=== PATIENT | female | born 1950 | race Hispanic/Latino ===

== ENCOUNTER 2018-07-10 05:43 | Emergency (ER) | payer OTHER ==
[2018-07-10] MEDS ORDERED: ONDANSETRON 4 MG/2 ML VIAL ONE (06:35)
[2018-07-10] MEDS ORDERED: DIAZEPAM 5 MG TABLET ONE (06:35)
[2018-07-10] MEDS ORDERED: FENTANYL CITR 100 MCG/2 ML ONE (06:35)
[2018-07-10] MEDS ORDERED: AMLODIPINE 5 MG TAB ONE (06:46)
[2018-07-10] MEDS ORDERED: NA CHLORIDE 0.9% 500 ML ONE (06:47)
[2018-07-10 06:48] LABS: Absolute Monocytes 0.6 K/uL (0.1-1.3); Absolute Neutrophil 3.1 K/uL (1.8-8.0); Basophils % 0.4 % (0-1.3); Eosinophils % 2.3 % (0-4.4); Hematocrit 40.2 % (36.0-45.0); Lymphocytes % 33.5 % (15.3-44.8); MCH 31.4 pg (27.0-35.0); MCV 91.9 fL (80-100); Monocytes % 10.6 % (3.3-12.3); RBC Red Blood Cell Count 4.37 M/uL (3.86-4.86)
[2018-07-10] MEDS ORDERED: LISINOPRIL 5 MG TAB ONE (06:58)
[2018-07-10 07:10] LABS: ALT/SGPT 29 U/L (12-78); AST/SGOT 24 U/L (15-37); Albumin 3.9 g/dL (3.4-5.0); Alkaline Phosphatase 44 U/L (45-117); BUN Blood Urea Nitrogen 14 mg/dL (7-18); Bicarbonate 28 mmol/L (21-32); Bilirubin Direct 0.1 mg/dL (0-0.2); Bilirubin Total 0.4 mg/dL (0.2-1.0); Glucose Level 91 mg/dL (74-106); Lipase 152 U/L (73-393); Magnesium 2.1 mg/dL (1.8-2.4); NT PRO-BNP 139 pg/mL (<125); Potassium 3.7 mmol/L (3.5-5.1); Protein, Total 7.9 g/dL (6.4-8.2); Sodium Level 136 mmol/L (136-145); Troponin (Emerg Dept Use Only) < 0.02 ng/mL (0.0-0.045)
--- NOTE | 2018-07-10 07:26 | RAD REPORT ---
EXAM DESCRIPTION: US - Extrem Venous W Compress Ramon - 07/10/2018 7:05 am CLINICAL HISTORY: Leg pain and swelling COMPARISON: None. TECHNIQUE: Real-time sonographic evaluation of the bilateral lower extremity common femoral, superfi cial femoral, popliteal and posterior tibial veins was performed. FINDINGS: Normal compressibility, flow augmentation, phasic flow and spontaneous flow are identified in the left and right lower extremity common femoral, superficial femoral, popliteal and posterior t ibial veins. No intraluminal filling defects seen. IMPRESSION: No DVT in either lower extremity.
--- NOTE | 2018-07-10 07:30 | ER ---
Nurse's Notes [facility] Name: Mary Ortega Age: 68 yrs Sex: Female : 1950 Arrival Date: 07/10/2018 Time: 05:43 Bed 6 Private MD: Diagnosis: Low back pain;Pain in left leg-posterior thigh;Essential (primary) hypertension Presentation: 07/10 05:51 Presenting complaint: Patient states: Pt reports pain to left upper thigh that's ea started two days ago. Pt reports history of back pain and arthritis, states " my back sometimes makes my legs hurt". Transition of care: patient was not received from another setting of care. Onset of symptoms was July 10, 2018. Risk Assessment: Do you want to hurt yourself or someone else? Patient reports no desire to harm self or others. Initial Sepsis Screen: Does the patient meet any 2 criteria? No. Patient's initial sepsis screen is negative. Does the patient have a suspected source of infection? No. Patient's initial sepsis screen is negative. Care prior to arrival: None. 05:51 Method Of Arrival: Wheelchair ea 05:51 Acuity: MYKE 3 ea Triage Assessment: 06:01 General: Appears uncomfortable, Behavior is calm, cooperative. Pain: Complains of pain ea in left hamstring Pain currently is 9 out of 10 on a pain scale. Quality of pain is described as aching, Pain began 2-3 days ago. Neuro: Level of Consciousness is awake, alert, obeys commands, Oriented to person, place, time, situation. Cardiovascular: Patient's skin is warm and dry. Respiratory: Airway is patent Respiratory effort is even, unlabored, Respiratory pattern is regular, symmetrical. Derm: Skin is pink, warm \\T\\ dry. Musculoskeletal: Reports pain in left hamstring. Historical: - Allergies: 06:00 No Known Allergies; ea - Home Meds: 06:00 Tramadol Oral [Active]; "blood pressure pill" [Active]; "cholesterol pill" [Active]; ea - PMHx: 06:00 Back pain; Hyperlipidemia; Hypertension; ea - PSHx: 06:00 breast surgery; Hysterectomy; ea - Immunization history:: Adult Immunizations up to date. - Social history:: Smoking status: Patient/guardian denies using tobacco. - Ebola Screening: : No symptoms or risks identified at this time. - Family history:: not pertinent. Screenin:03 Abuse screen: Denies threats or abuse. Nutritional screening: No deficits noted. ea Tuberculosis screening: No symptoms or risk factors identified. Fall Risk None identified. Assessment: 05:51 Reassessment: see triage assessment. ea 06:24 Reassessment: Patient and/or family updated on plan of care and expected duration. Pain ea level reassessed. Patient is alert, oriented x 3, equal unlabored respirations, skin warm/dry/pink. 07:35 Reassessment: Patient appears in no apparent distress at this time. No changes from previously documented assessment. Patient and/or family updated on plan of care and expected duration. Pain level reassessed. Patient is alert, oriented x 3, equal unlabored respirations, skin warm/dry/pink. Patient states feeling better. General: Appears in no apparent distress. comfortable. Pain: Pain currently is 6 out of 10 on a pain scale. 07:47 Reassessment: Patient appears in no apparent distress at this time. Patient and/or family updated on plan of care and expected duration. Pain level reassessed. Patient is alert, oriented x 3, equal unlabored respirations, skin warm/dry/pink. Patient states feeling better. Patient states symptoms have improved. Vital Signs: 06:00 BP 204 / 102; Pulse 98; Resp 20; Temp 97.6; Pulse Ox 97% on R/A; Weight 66.68 kg; ea Height 5 ft. 5 in. (165.10 cm); Pain 9/10; 06:24 BP 154 / 139; Pulse 91; Resp 18; Pulse Ox 96% on R/A; ea 06:43 BP 154 / 94; Pulse 86; Resp 20; Pulse Ox 96% on R/A; ea 06:46 BP 158 / 85; Pulse 89; Resp 18; Pulse Ox 95% ; ea 07:35 BP 150 / 92; Pulse 83; Resp 16; Temp 98.3; Pulse Ox 99% on R/A; Pain 6/10; ch 06:00 Body Mass Index 24.46 (66.68 kg, 165.10 cm) ED Course: 05:43 Patient arrived in ED. ds1 05:47 Pepe Anthony MD is Attending Physician. [facility] 05:51 Pro, Riya, RN is Primary Nurse. ea 05:56 Triage completed. ea 06:04 Patient has correct armband on for positive identification. Bed in low position. Call ea light in reach. 06:04 Arm band placed on right wrist. Patient placed in an exam room, on a stretcher, on ea pulse oximetry. 06:15 Inserted saline lock: 20 gauge in right antecubital area, using aseptic technique. ea Blood collected. 06:52 X-ray completed. Portable x-ray completed in exam room. Patient tolerated procedure kw well. 06:53 XRAY Chest (1 view) In Process Unspecified. EDMS 06:55 Report given to Mary BLUE. ea 07:05 Ultrasound completed. Patient tolerated well. aa4 07:05 US Extremity Venous W Compression Ramon In Process Unspecified. EDMS 07:23 Urine collected: clean catch specimen, clear, alex colored. jb1 07:29 Frank Vanegas MD is Referral Physician. kathleen 07:34 Primary Nurse role handed off by Riya Pro RN ch 07:34 Mary Ram RN is Primary Nurse. ch 07:40 No provider procedures requiring assistance completed. IV discontinued, intact, ch bleeding controlled, No redness/swelling at site. Pressure dressing applied. Administered Medications: 06:34 Drug: fentaNYL (PF) 25 mcg Route: IVP; Site: right antecubital; ea 06:45 Follow up: Response: No adverse reaction; Pain is decreased ea 06:34 Drug: Zofran 4 mg Route: IVP; Site: right antecubital; ea 06:53 Follow up: Response: No adverse reaction; Marked relief of symptoms ea 06:34 Drug: Valium 5 mg Route: PO; ea 06:54 Follow up: Response: No adverse reaction ea 06:43 Drug: NS 0.9% 500 ml Route: IV; Rate: bolus; Site: right antecubital; ea 07:10 Follow up: IV Status: Completed infusion; IV Intake: 500ml ch 06:43 Drug: Norvasc 10 mg Route: PO; ea 07:48 Follow up: Response: No adverse reaction; Marked relief of symptoms ch 06:49 CANCELLED (Duplicate Order): Lisinopril 10 mg PO once kathleen 06:53 Drug: Lisinopril 5 mg Route: PO; ea 07:32 Follow up: Response: No adverse reaction ch 07:40 Drug: TORadol 30 mg Route: IVP; Site: right antecubital; 07:48 Follow up: Response: No adverse reaction; Marked relief of symptoms Intake: 07:10 IV: 500ml; Total: 500ml. Outcome: 07:29 Discharge ordered by . kathleen 07:45 Discharged to home ambulatory, with family. 07:45 Condition: improved 07:45 Discharge instructions given to patient, family, Instructed on discharge instructions, follow up and referral plans. medication usage, Demonstrated understanding of instructions, follow-up care, medications, Prescriptions given X 5 07:49 Patient left the ED. Addendum: 07/14/2018 11:05 Addendum: Culture Results: Positive urine culture. Patient was not prescribed i w antibiotics at discharge. Report given to JIE for further evaluation and then to hr business partner consultant for follow up with patient. Phone call Attempt #1 phone disconnected. Signatures: Dispatcher [employer] EDWil Swan [email or web address] Mary Ram, Pepe Skinner RN, ch, MD MD cha Sanford, Demi ds1 Barbara Perez, Aparna Watters RN aa4 Rubi Miller Elena, RN RN ea
--- NOTE | 2018-07-10 07:30 | EDPHYS ---
Physician Documentation [facility] Name: Mary Ortega Age: 68 yrs Sex: Female : 1950 Arrival Date: 07/10/2018 Time: 05:43 Bed 6 Private MD: AMANDA Physician Pepe Anthony HPI: 07/10 06:26 This 68 yrs old Female presents to ER via Wheelchair with complaints of Leg kathleen Pain. 06:26 The patient presents with decreased range of motion, pain, that is acute. The kathleen complaints affect the left hamstring. Context: The problem was sustained at home. Onset: The symptoms/episode began/occurred yesterday. Modifying factors: The symptoms are alleviated by remaining still, the symptoms are aggravated by movement, bending knee. Associated signs and symptoms: The patient has no apparent associated signs or symptoms. Treatment prior to arrival includes: prescription medications, aleve. Severity of symptoms: At their worst the symptoms were mild, in the emergency department the symptoms are unchanged. The patient has not experienced similar symptoms in the past. Historical: - Allergies: 06:00 No Known Allergies; ea - Home Meds: 06:00 Tramadol Oral [Active]; "blood pressure pill" [Active]; "cholesterol pill" [Active]; ea - PMHx: 06:00 Back pain; Hyperlipidemia; Hypertension; ea - PSHx: 06:00 breast surgery; Hysterectomy; ea - Immunization history:: Adult Immunizations up to date. - Social history:: Smoking status: Patient/guardian denies using tobacco. - Ebola Screening: : No symptoms or risks identified at this time. - Family history:: not pertinent. ROS: 06:26 Constitutional: Negative for fever, chills, and weight loss, Eyes: Negative for injury, kathleen pain, redness, and discharge, ENT: Negative for injury, pain, and discharge, Neck: Negative for injury, pain, and swelling, Cardiovascular: Negative for chest pain, palpitations, and edema, Respiratory: Negative for shortness of breath, cough, wheezing, and pleuritic chest pain, Abdomen/GI: Negative for abdominal pain, nausea, vomiting, diarrhea, and constipation, Back: Negative for injury and pain, : Negative for injury, bleeding, discharge, and swelling, Skin: Negative for injury, rash, and discoloration, Psych: Negative for depression, anxiety, suicide ideation, homicidal ideation, and hallucinations, Allergy/Immunology: Negative for hives, rash, and allergies, Endocrine: Negative for neck swelling, polydipsia, polyuria, polyphagia, and marked weight changes, Hematologic/Lymphatic: Negative for swollen nodes, abnormal bleeding, and unusual bruising. 06:26 MS/extremity: Positive for decreased range of motion, pain, tenderness, of the left hamstring. Exam: 06:26 Constitutional: This is a well developed, well nourished patient who is awake, alert, kathleen and in no acute distress. Head/Face: Normocephalic, atraumatic. Eyes: Pupils equal round and reactive to light, extra-ocular motions intact. Lids and lashes normal. Conjunctiva and sclera are non-icteric and not injected. Cornea within normal limits. Periorbital areas with no swelling, redness, or edema. ENT: Nares patent. No nasal discharge, no septal abnormalities noted. Tympanic membranes are normal and external auditory canals are clear. Oropharynx with no redness, swelling, or masses, exudates, or evidence of obstruction, uvula midline. Mucous membranes moist. Neck: Trachea midline, no thyromegaly or masses palpated, and no cervical lymphadenopathy. Supple, full range of motion without nuchal rigidity, or vertebral point tenderness. No Meningismus. Chest/axilla: Normal chest wall appearance and motion. Nontender with no deformity. No lesions are appreciated. Cardiovascular: Regular rate and rhythm with a normal S1 and S2. No gallops, murmurs, or rubs. Normal PMI, no JVD. No pulse deficits. Respiratory: Lungs have equal breath sounds bilaterally, clear to auscultation and percussion. No rales, rhonchi or wheezes noted. No increased work of breathing, no retractions or nasal flaring. Abdomen/GI: Soft, non-tender, with normal bowel sounds. No distension or tympany. No guarding or rebound. No evidence of tenderness throughout. Back: No spinal tenderness. No costovertebral tenderness. Full range of motion. Skin: Warm, dry with normal turgor. Normal color with no rashes, no lesions, and no evidence of cellulitis. Neuro: Awake and alert, GCS 15, oriented to person, place, time, and situation. Cranial nerves II-XII grossly intact. Motor strength 5/5 in all extremities. Sensory grossly intact. Cerebellar exam normal. Normal gait. Psych: Awake, alert, with orientation to person, place and time. Behavior, mood, and affect are within normal limits. 06:26 Musculoskeletal/extremity: Extremities: grossly normal except: noted in the left hamstring: decreased ROM, pain, ROM: full active range of motion, full passive range of motion, Pulses: are normal with no appreciated deficits, noted to be 4+ in the bilateral radial, brachial, femoral, popliteal, posterior tibial and and dorsalis pedis arteries., Sensation intact. Compartment Syndrome exam of affected extremity: is normal. Weight bearing: able to fully bear weight, DVT Exam: no swelling, negative Homans' sign noted on exam, no appreciated bluish discoloration, no erythema, no increased warmth, pain, tenderness. Vital Signs: 06:00 BP 204 / 102; Pulse 98; Resp 20; Temp 97.6; Pulse Ox 97% on R/A; Weight 66.68 kg; ea Height 5 ft. 5 in. (165.10 cm); Pain 9/10; 06:24 BP 154 / 139; Pulse 91; Resp 18; Pulse Ox 96% on R/A; ea 06:43 BP 154 / 94; Pulse 86; Resp 20; Pulse Ox 96% on R/A; ea 06:46 BP 158 / 85; Pulse 89; Resp 18; Pulse Ox 95% ; ea 07:35 BP 150 / 92; Pulse 83; Resp 16; Temp 98.3; Pulse Ox 99% on R/A; Pain 6/10; ch 06:00 Body Mass Index 24.46 (66.68 kg, 165.10 cm) ea MDM: 05:47 Patient medically screened. [facility] 06:26 Data reviewed: vital signs, nurses notes, lab test result(s), EKG, radiologic studies, [facility] plain films. 07/10 06: Order name: Basic Metabolic Panel [facility] 07/10 06: Order name: CBC with Diff [facility] 07/10 06: Order name: LFT's [facility] 07/10 06: Order name: Magnesium [facility] 07/10 06: Order name: NT PRO-BNP [facility] 07/10 06: Order name: PT-INR; Complete Time: 07:08 [facility] 07/10 06: Order name: Troponin (emerg Dept Use Only); Complete Time: 07:23 [facility] 07/10 06:26 Order name: Lipase; Complete Time: 07:23 [facility] 07/10 06:26 Order name: Urine Culture [facility] 07/10 06:27 Order name: Basic Metabolic Panel; Complete Time: 07:23 [facility] 07/10 06:27 Order name: CBC with Automated Diff; Complete Time: 07:08 [facility] [place] 07/10 06:27 Order name: Liver (Hepatic) Function; Complete Time: 07:23 [facility] 07/10 06:27 Order name: Magnesium; Complete Time: 07:23 [facility] 07/10 06:27 Order name: NT PRO-BNP; Complete Time: 07:23 [facility] 07/10 06:26 Order name: XRAY Chest (1 view) [facility] 07/10 06:26 Order name: EKG; Complete Time: 06:28 [facility] 07/10 06:26 Order name: Cardiac monitoring; Complete Time: 06:29 [facility] 07/10 06:26 Order name: EKG - Nurse/Tech; Complete Time: 06:29 [facility] 07/10 06:26 Order name: IV Saline Lock; Complete Time: 06:29 [facility] 07/10 06:26 Order name: Labs collected and sent; Complete Time: 06:29 [facility] 07/10 06:36 Order name: US Extremity Venous W Compression Ramon; Complete Time: 07:28 [facility] 07/10 07:25 Order name: Urine Dipstick--Ancillary (enter results) 07/10 06:26 Order name: O2 Per Protocol; Complete Time: 06:29 [facility] 07/10 06:26 Order name: O2 Sat Monitoring; Complete Time: 06:29 [facility] 07/10 06:26 Order name: Urine Dipstick-Ancillary (obtain specimen); Complete Time: 07:24 [facility] Administered Medications: 06:34 Drug: fentaNYL (PF) 25 mcg Route: IVP; Site: right antecubital; ea 06:45 Follow up: Response: No adverse reaction; Pain is decreased ea 06:34 Drug: Zofran 4 mg Route: IVP; Site: right antecubital; ea 06:53 Follow up: Response: No adverse reaction; Marked relief of symptoms ea 06:34 Drug: Valium 5 mg Route: PO; ea 06:54 Follow up: Response: No adverse reaction ea 06:43 Drug: NS 0.9% 500 ml Route: IV; Rate: bolus; Site: right antecubital; ea 07:10 Follow up: IV Status: Completed infusion; IV Intake: 500ml 06:43 Drug: Norvasc 10 mg Route: PO; ea 07:48 Follow up: Response: No adverse reaction; Marked relief of symptoms 06:49 CANCELLED (Duplicate Order): Lisinopril 10 mg PO once kathleen 06:53 Drug: Lisinopril 5 mg Route: PO; ea 07:32 Follow up: Response: No adverse reaction 07:40 Drug: TORadol 30 mg Route: IVP; Site: right antecubital; ch 07:48 Follow up: Response: No adverse reaction; Marked relief of symptoms Disposition: 07/10/18 07:29 Discharged to Home. Impression: Low back pain, Pain in left leg - posterior thigh, Essential (primary) hypertension. - Condition is Stable. - Discharge Instructions: Back Pain, Adult, Hypertension, Musculoskeletal Pain, Hypertension, [id number], Back Pain, Adult, [id number], Sciatica, [id number]. - Prescriptions for Norvasc 5 mg Oral Tablet - take 1 tablet by ORAL route once daily; 20 tablet. Tylenol- Codeine #3 300-30 mg Oral Tablet - take 2 tablet by ORAL route every 6 hours As needed; 30 tablet. Valium 2 mg Oral Tablet - take 1 tablet by ORAL route every 8 hours As needed; 20 tablet. Lisinopril 5 mg Oral Tablet - take 1 tablet by ORAL route once daily; 20 tablet. Motrin IB 200 mg Oral Tablet - take 2 tablet by ORAL route every 6 hours As needed as needed with food; 20 tablet. - Medication Reconciliation Form, Thank You Letter, Antibiotic Education, Prescription Opioid Use form. - Follow up: Private Physician; When: 2 - 3 days; Reason: Recheck today's complaints, Continuance of care, Re-evaluation by your physician. Follow up: Frank Vanegas; When: 2 - 3 days; Reason: Recheck today's complaints, Re-evaluation by your physician. - Problem is new. - Symptoms have improved. Signatures: Dispatcher [employer] EDMary Rodriguez RN RN ch Anderson, Corey, MD MD cha Antunez, Elena, RN RN ea Corrections: (The following items were deleted from the chart) 06:49 06:45 Lisinopril 10 mg PO once ordered. kathleen [facility] 07:49 07:29 07/10/2018 07:29 Discharged to Home. Impression: Low back pain; Pain in left leg ch - posterior thigh; Essential (primary) hypertension. Condition is Stable. Discharge Instructions: Back Pain, Adult, Hypertension, Musculoskeletal Pain, Hypertension, [id number], Back Pain, Adult, Scua-lj-Loii, Sciatica, Ruft-[id number]. Prescriptions for Norvasc 5 mg Oral Tablet - take 1 tablet by ORAL route once daily; 20 tablet, Tylenol-Codeine #3 300-30 mg Oral Tablet - take 2 tablet by ORAL route every 6 hours As needed; 30 tablet, Valium 2 mg Oral Tablet - take 1 tablet by ORAL route every 8 hours As needed; 20 tablet, Lisinopril 5 mg Oral Tablet - take 1 tablet by ORAL route once daily; 20 tablet. and Forms are Medication Reconciliation Form, Thank You Letter, Antibiotic Education, Prescription Opioid Use. Follow up: Private Physician; When: 2 - 3 days; Reason: Recheck today's complaints, Continuance of care, Re-evaluation by your physician. Follow up: Frank Vanegsa; When: 2 - 3 days; Reason: Recheck today's complaints, Re-evaluation by your physician. Problem is new. Symptoms have improved. [facility]
[2018-07-10] MEDS ORDERED: KETOROLAC 30 MG/ML INJ ONE (07:44)
--- NOTE | 2018-07-10 08:50 | RAD REPORT ---
EXAM DESCRIPTION: RAD - Chest Single View - 07/10/2018 6:54 am CLINICAL HISTORY: Back pain, leg pain, shortness of breath COMPARISON: September 2016 TECHNIQUE: AP portable chest image was obtained 0640 hours . FINDINGS: Lung volumes are relatively low but similar to comparison. Interstitial markings are promi nent and increased over comparison. Heart size is increased slightly and vascular engorgement is seen . Trachea is midline. No measurable pleural effusion and no pneumothorax. No acute bony abnormality s een. No acute aortic findings suspected. IMPRESSION: Mild CHF/ volume overload pattern.
[2018-07-10 09:36] LABS: Urine Blood NEGATIVE (NEG); Urine Glucose NEGATIVE (NEG); Urine Protein NEGATIVE (NEG); Urine Specific Gravity 1.015 (1.005-1.030)
--- NOTE | 2018-07-10 12:19 | EKG ---
Test Date: 2018-07-10 Test Time: 06:19:48 Audio Recording Engineer: ROLANDO MEASUREMENT RESULTS: Intervals: Rate: 85 UT: 150 QRSD: 74 QT: 372 QTc: 442 [place]: P: 51 UT: 150 QRS: 32 T: 34 INTERPRETIVE STATEMENTS: Normal sinus rhythm Normal ECG Compared to ECG 09/16/2016 15:55:49 No significant changes Electronically Signed On 07-10-18 12:17:52 [employer] CONDITION[employer] WORKER by Christian Jefferson
== END 2018-07-10 07:49 | disposition home or self-care (01) ==
LOC: ER 05:43
DX: M54.5 Low back pain (principal); I10 Essential (primary) hypertension; E78.5 Hyperlipidemia, unspecified
CPT/HCPCS: 36415; 71045; 80048; 80076; 81003; 83690; 83735; 83880; 84484; 85025; 85610; 87077; 87086; 87088; 87186; 93005; 93970; 96361; 96374; 96375; 99284; J2405; J3010

== ENCOUNTER 2018-07-12 06:33 | Emergency (ER) | payer OTHER ==
[2018-07-12] MEDS ORDERED: METHYLPREDNISOLONE 125 MG INJ ONE (08:15)
[2018-07-12] MEDS ORDERED: GABAPENTIN 300 MG CAP ONE (08:15)
[2018-07-12] MEDS ORDERED: HYDROCODONE/APAP 10/325 TAB ONE (08:16)
[2018-07-12] MEDS ORDERED: IBUPROFEN 200 MG TAB PO ONE (08:16)
[2018-07-12] MEDS ORDERED: IBUPROFEN 400 MG TAB ONE (08:16)
[2018-07-12] MEDS ORDERED: FAMOTIDINE 20 MG/2 ML VIAL IV ONE (08:17)
--- NOTE | 2018-07-12 08:41 | RAD REPORT ---
EXAM DESCRIPTION: CT - Spine Lumbar Wo Con - 07/12/2018 8:30 am CLINICAL HISTORY: Back pain, left lower extremity radiculopathy COMPARISON: None. TECHNIQUE: Thin section axial imaging of the lumbar spine was performed. Sagittal and coronal recon struction images were generated and reviewed. All CT scans are performed using dose optimization technique as appropriate and may include automated exposure control or mA/KV adjustment according to patient size. FINDINGS: Lumbar bodies are normal in height and normal in alignment. No lytic, sclerotic or expansi le bony destructive process. There is significant L4-5 degenerative disc disease with gas in the disc space. Sclerotic and spurring changes involve the right anterior and lateral aspect of the disc. Mil d endplate spurs elsewhere in the lumbar spine. The T11-12 through the L3-4 disc levels show areas of disc bulge but no herniation identified. Spinal stenosis or foraminal stenosis are not suspected. Facet joint degenerative changes are mild. L4-5 disc level shows significant disc bulge in the central canal and extending into the right exit f oramen. Left foraminal disc bulge is present as well. Central spinal stenosis is evident at 8- 9 mm. Facet degenerative changes prominent at this level. L5-S1 level shows left paracentral disc bulge contacting the left S1 nerve root. No central spinal st enosis. No significant left foraminal stenosis. Facet degenerative changes mild. IMPRESSION: Advanced L4-5 disc disease with central canal and right foramen prominent bulging disc m aterial. Mild central spinal stenosis is present along with right foraminal stenosis. Left foraminal stenosis is present less than seen on the right. Left paracentral disc bulge at L5-S1. This contacts but does not displace the left S1 nerve root slee ve. No compression fracture or pathologic bone process. Central canal detail is inherently limited.
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
== END 2018-07-12 09:35 | disposition home or self-care (01) ==
LOC: ER 06:33
DX: M54.32 Sciatica, left side (principal); M51.36 Other intervertebral disc degeneration, lumbar region; I10 Essential (primary) hypertension; E78.5 Hyperlipidemia, unspecified
CPT/HCPCS: 72131; 96374; 96375; 99284; J2930

== ENCOUNTER 2018-07-23 07:43 | Emergency (ER) | payer OTHER ==
[2018-07-23] MEDS ORDERED: FENTANYL CITR 100 MCG/2 ML ONE (08:49)
[2018-07-23] MEDS ORDERED: KETOROLAC 30 MG/ML INJ ONE (08:50)
[2018-07-23] MEDS ORDERED: ONDANSETRON 4 MG/2 ML VIAL ONE (08:50)
[2018-07-23] MEDS ORDERED: NA CHLORIDE 0.9% 500 ML ONE (08:50)
[2018-07-23] MEDS ORDERED: DEXAMETHASONE 4 MG/ML VIAL ONE (08:50)
[2018-07-23 09:03] LABS: Absolute Lymphocytes (CBC) 2.8 K/uL (0.7-4.9); Absolute Monocytes 0.8 K/uL (0.1-1.3); Basophils % 0.3 % (0-1.3); Eosinophils % 0.9 % (0-4.4); Lymphocytes % 23.9 % (15.3-44.8); MCH 31.4 pg (27.0-35.0); MPV 9.2 fL (7.6-11.3); Monocytes % 6.6 % (3.3-12.3); RBC Red Blood Cell Count 4.62 M/uL (3.86-4.86)
[2018-07-23 09:19] LABS: Albumin 3.9 g/dL (3.4-5.0); Bilirubin Total 0.4 mg/dL (0.2-1.0); Potassium 4.2 mmol/L (3.5-5.1); Protein, Total 7.7 g/dL (6.4-8.2)
--- NOTE | 2018-07-23 10:03 | RAD REPORT ---
EXAM DESCRIPTION: MRI - Lumbar Spine Wo Con- 07/23/2018 9:46 am CLINICAL HISTORY: r/o herniation Radiculopathy COMPARISON: Lumbar Spine Wo Con dated 08/25/2016; Spine Lumbar Wo Con dated 07/12/2018 FINDINGS: Vertebral body heights are within normal limits. No aggressive marrow pattern is observed. No fracture is suspected. The conus medullaris terminates at a normal level. No thickening of the cauda equina or clumping of n erve roots seen. L1-2 level: Mild concentric posterior disc bulge with moderate central posterior annular fissure. L2-3 level: Krup-rr-vctslwha concentric posterior disc bulge with small central posterior annular fis sure. L3-4 level: Asymmetric posterior disc bulge to the left is seen with mild facet and ligamentum flavum hypertrophy. No significant canal or foraminal stenosis. The left lateral recess is mildly attenuate d. L4-5 level: Diffuse concentric posterior disc bulge with mild facet and ligamentum flavum hypertrophy . The central canal is mildly narrowed with narrowing of the right lateral recess seen. No significan t exit foraminal stenosis. L5-S1 level: Small 3 mm central disc protrusion is present with mild facet hypertrophy. No significan t canal or foraminal stenosis. IMPRESSION: Multilevel moderately severe spondylosis is present as detailed. Left lateral recess narrowing is present at L3-4. Right lateral recess narrowing is present at L4-5.
--- NOTE | 2018-07-23 10:06 | ER ---
Nurse's Notes [facility] Name: Mary Ortega Age: 68 yrs Sex: Female : 1950 Arrival Date: 07/23/2018 Time: 07:49 Bed 13 Private MD: None, None Diagnosis: Low back pain;Sciatica, left side;Spondylolysis, lumbar region Presentation: 07/23 07:55 Presenting complaint: Patient states: low back pain with radiation to left leg. Pt was sv seen here last week for it and dx with sciatica, pain and muscle relaxer medications worked. Pt unable to get into a PCP d/t recent addition of insurance. Transition of care: patient was not received from another setting of care. Onset of symptoms was July 2018. Care prior to arrival: None. 07:55 Method Of Arrival: Ambulatory sv 07:55 Acuity: MYKE 4 sv 07:55 Risk Assessment: Do you want to hurt yourself or someone else? Patient reports no hj desire to harm self or others. Initial Sepsis Screen: Does the patient meet any 2 criteria? No. Patient's initial sepsis screen is negative. Does the patient have a suspected source of infection? No. Patient's initial sepsis screen is negative. Triage Assessment: 08:06 General: Appears uncomfortable, Behavior is calm, cooperative, appropriate for age. sv Pain: Complains of pain in low back area Pain radiates to left leg Pain currently is 10 out of 10 on a pain scale. Neuro: Level of Consciousness is awake, alert, obeys commands, Oriented to person, place, time, situation, Moves all extremities. Full function Gait is steady, with her cane. Respiratory: Respiratory effort is even, unlabored, Respiratory pattern is regular, symmetrical. Historical: - Allergies: 08:06 No Known Allergies; sv - Home Meds: 08:06 "cholesterol pill" [Active]; omeprazole 20 mg Oral cpDR 1 cap once daily [Active]; sv tizanidine 2 mg Oral tab TID prn [Active]; Tramadol Oral [Active]; Robaxin 500 mg Oral tab 2 tabs 4 times per day [Active]; ibuprofen 800 mg Oral tab Q8H prn [Active]; methylprednisolone 4 mg Oral DsPk [Active]; lisinopril 5 mg Oral tab 1 tab once daily [Active]; - PMHx: 08:06 Back pain; Hyperlipidemia; Hypertension; sv - PSHx: 08:06 breast surgery; Hysterectomy; sv - Immunization history:: Adult Immunizations up to date. - Social history:: Smoking status: Patient/guardian denies using tobacco. - Ebola Screening: : No symptoms or risks identified at this time. - Family history:: not pertinent. Screenin:55 Abuse screen: Denies threats or abuse. Denies injuries from another. Nutritional hj screening: No deficits noted. Tuberculosis screening: No symptoms or risk factors identified. Fall Risk None identified. Assessment: 07:55 General: Appears in no apparent distress. uncomfortable, Behavior is calm, cooperative, hj appropriate for age. Pain: Complains of pain in back Pain radiates to left leg. Neuro: Level of Consciousness is awake, alert, obeys commands, Oriented to person, place, time, situation, Appropriate for age. Cardiovascular: Capillary refill < 3 seconds Patient's skin is warm and dry. Respiratory: Airway is patent Respiratory effort is even, unlabored, Respiratory pattern is regular, symmetrical. GI: No signs and/or symptoms were reported involving the gastrointestinal system. : No signs and/or symptoms were reported regarding the genitourinary system. : No signs and/or symptoms were reported regarding the genitourinary system. EENT: No signs and/or symptoms were reported regarding the EENT system. Derm: No signs and/or symptoms reported regarding the dermatologic system. Musculoskeletal: Reports pain in back and low back area. 08:33 Reassessment: Patient and/or family updated on plan of care and expected duration. Pain hj level reassessed. Patient is alert, oriented x 3, equal unlabored respirations, skin warm/dry/pink. awaiting orders and POC;. 09:30 Reassessment: Patient and/or family updated on plan of care and expected duration. Pain hj level reassessed. Patient is alert, oriented x 3, equal unlabored respirations, skin warm/dry/pink. Patient states feeling better. Patient states symptoms have improved. 10:25 Reassessment: Patient and/or family updated on plan of care and expected duration. Pain hj level reassessed. Patient is alert, oriented x 3, equal unlabored respirations, skin warm/dry/pink. D/C instructions given; Patient states feeling better. Patient states symptoms have improved. Vital Signs: 07:55 BP 122 / 83; Pulse 103; Resp 18; Temp 98; Pulse Ox 97% ; Weight 65.77 kg; Height 5 ft. sv 5 in. (165.10 cm); Pain 10/10; 08:33 BP 133 / 80; Pulse 91; Resp 18; Pulse Ox 96% on R/A; hj 09:30 BP 120 / 78; Pulse 90; Resp 18; Pulse Ox 100% on R/A; hj 10:24 BP 124 / 81; Pulse 89; Resp 18; Pulse Ox 100% on R/A; hj 07:55 Body Mass Index 24.13 (65.77 kg, 165.10 cm) sv ED Course: 07:49 Patient arrived in ED. mr 07:49 None, None is Private Physician. mr 07:55 Lev Story, RN is Primary Nurse. hj 07:55 Arm band placed on Patient placed in an exam room, on a stretcher, on pulse oximetry. sv 07:55 Patient has correct armband on for positive identification. Bed in low position. Call light in reach. Side rails up X 1. Adult w/ patient. 08:05 Triage completed. sv 08:09 Pepe Anthony MD is Attending Physician. [facility] 08:59 Pulse ox on. NIBP on. 5 08:59 Initial lab(s) drawn, by mo, sent to lab. Urine collected: clean catch specimen, clear. mh5 Inserted saline lock: 20 gauge antecubital area, using aseptic technique. Blood collected. 09:00 Urine Culture Sent. 5 09:00 Comprehensive Metabolic Panel Sent. 5 09:00 CBC with Diff Sent. 5 09:47 Lumbar Spine Wo Con In Process Unspecified. EDMS 09:48 Patient moved to MRI via wheelchair. lc 10:00 Patient moved back from MRI. lc 10:23 No provider procedures requiring assistance completed. IV discontinued, intact, hj bleeding controlled, No redness/swelling at site. Pressure dressing applied. Administered Medications: 08:40 Drug: NS 0.9% 500 ml Route: IV; Rate: bolus; Site: right antecubital; hj 10:00 Follow up: IV Status: Completed infusion 08:40 Drug: TORadol 30 mg Route: IVP; Site: right antecubital; hj 09:40 Follow up: Response: No adverse reaction; Pain is decreased hj 08:40 Drug: Zofran 4 mg Route: IVP; Site: right antecubital; hj 09:40 Follow up: Response: No adverse reaction; Nausea is decreased hj 08:40 Drug: Decadron - Dexamethasone 10 mg Route: IVP; Site: right antecubital; hj 09:40 Follow up: Response: No adverse reaction hj 08:40 Drug: fentaNYL (PF) 25 mcg Route: IVP; Site: right antecubital; hj 09:40 Follow up: Response: No adverse reaction; Pain is decreased hj 10:04 Drug: fentaNYL (PF) 25 mcg Route: IVP; Site: left antecubital; hj 10:20 Follow up: Response: No adverse reaction; Pain is decreased Outcome: 10:05 Discharge ordered by . kathleen 10:23 Discharged to home ambulatory, with family. 10:23 Condition: stable 10:23 Discharge instructions given to patient, family, Instructed on discharge instructions, follow up and referral plans. medication usage, Demonstrated understanding of instructions, follow-up care, medications, Prescriptions given X 4. 10:25 Patient left the ED. Signatures: Dispatcher [employer] EDMS Britney Beasley RN RN sv Anderson, Corey, MD MD cha Rivera, Mary mr Naty Reese Henry, RN RN hj Martinez, Maria 5 Corrections: (The following items were deleted from the chart) 08:09 07:55 Temp 98F; 65.77 kg; Height 5 ft. 5 in.; BMI: 24.1; Pain 10; [facility]
--- NOTE | 2018-07-23 10:06 | EDPHYS ---
Physician Documentation [facility] Name: Mary Ortega Age: 68 yrs Sex: Female : 1950 Arrival Date: 07/23/2018 Time: 07:49 Bed 13 Private MD: None, None ED Physician Pepe Anthony HPI: 07/23 08:36 This 68 yrs old Female presents to ER via Ambulatory with complaints of Back kathleen Pain. 08:36 The patient presents with pain that is acute. The symptoms are located in the low back. kathleen Onset: The symptoms/episode began/occurred 14 day(s) ago. The pain radiates to the left low back. Associated signs and symptoms: The patient has no apparent associated signs or symptoms. Modifying factors: The patient symptoms are alleviated by remaining still. Severity of symptoms: At their worst the symptoms were mild. Historical: - Allergies: 08:06 No Known Allergies; sv - Home Meds: 08:06 "cholesterol pill" [Active]; omeprazole 20 mg Oral cpDR 1 cap once daily [Active]; sv tizanidine 2 mg Oral tab TID prn [Active]; Tramadol Oral [Active]; Robaxin 500 mg Oral tab 2 tabs 4 times per day [Active]; ibuprofen 800 mg Oral tab Q8H prn [Active]; methylprednisolone 4 mg Oral DsPk [Active]; lisinopril 5 mg Oral tab 1 tab once daily [Active]; - PMHx: 08:06 Back pain; Hyperlipidemia; Hypertension; sv - PSHx: 08:06 breast surgery; Hysterectomy; sv - Immunization history:: Adult Immunizations up to date. - Social history:: Smoking status: Patient/guardian denies using tobacco. - Ebola Screening: : No symptoms or risks identified at this time. - Family history:: not pertinent. ROS: 08:36 Constitutional: Negative for fever, chills, and weight loss, Eyes: Negative for injury, kathleen pain, redness, and discharge, ENT: Negative for injury, pain, and discharge, Neck: Negative for injury, pain, and swelling, Cardiovascular: Negative for chest pain, palpitations, and edema, Respiratory: Negative for shortness of breath, cough, wheezing, and pleuritic chest pain, Abdomen/GI: Negative for abdominal pain, nausea, vomiting, diarrhea, and constipation, Back: Negative for injury and pain, : Negative for injury, bleeding, discharge, and swelling, Skin: Negative for injury, rash, and discoloration, Neuro: Negative for headache, weakness, numbness, tingling, and seizure, Psych: Negative for depression, anxiety, suicide ideation, homicidal ideation, and hallucinations, Allergy/Immunology: Negative for hives, rash, and allergies, Endocrine: Negative for neck swelling, polydipsia, polyuria, polyphagia, and marked weight changes, Hematologic/Lymphatic: Negative for swollen nodes, abnormal bleeding, and unusual bruising. 08:36 MS/extremity: Positive for decreased range of motion, pain. Exam: 08:37 Constitutional: This is a well developed, well nourished patient who is awake, alert, kathleen and in no acute distress. Head/Face: Normocephalic, atraumatic. Eyes: Pupils equal round and reactive to light, extra-ocular motions intact. Lids and lashes normal. Conjunctiva and sclera are non-icteric and not injected. Cornea within normal limits. Periorbital areas with no swelling, redness, or edema. ENT: Nares patent. No nasal discharge, no septal abnormalities noted. Tympanic membranes are normal and external auditory canals are clear. Oropharynx with no redness, swelling, or masses, exudates, or evidence of obstruction, uvula midline. Mucous membranes moist. Neck: Trachea midline, no thyromegaly or masses palpated, and no cervical lymphadenopathy. Supple, full range of motion without nuchal rigidity, or vertebral point tenderness. No Meningismus. Chest/axilla: Normal chest wall appearance and motion. Nontender with no deformity. No lesions are appreciated. Cardiovascular: Regular rate and rhythm with a normal S1 and S2. No gallops, murmurs, or rubs. Normal PMI, no JVD. No pulse deficits. Respiratory: Lungs have equal breath sounds bilaterally, clear to auscultation and percussion. No rales, rhonchi or wheezes noted. No increased work of breathing, no retractions or nasal flaring. Abdomen/GI: Soft, non-tender, with normal bowel sounds. No distension or tympany. No guarding or rebound. No evidence of tenderness throughout. Female : Normal external genitalia. Skin: Warm, dry with normal turgor. Normal color with no rashes, no lesions, and no evidence of cellulitis. MS/ Extremity: Pulses equal, no cyanosis. Neurovascular intact. Full, normal range of motion. Neuro: Awake and alert, GCS 15, oriented to person, place, time, and situation. Cranial nerves II-XII grossly intact. Motor strength 5/5 in all extremities. Sensory grossly intact. Cerebellar exam normal. Normal gait. Psych: Awake, alert, with orientation to person, place and time. Behavior, mood, and affect are within normal limits. 08:37 Back: pain, that is moderate, ROM is painful, normal spinal alignment noted, CVA tenderness, is absent, vertebral tenderness, is not appreciated, muscle spasm, is not present, Straight leg raises: right lower extremity illicits pain, at 60 degrees, left lower extremity illicits pain, at 30 degrees. Vital Signs: 07:55 BP 122 / 83; Pulse 103; Resp 18; Temp 98; Pulse Ox 97% ; Weight 65.77 kg; Height 5 ft. sv 5 in. (165.10 cm); Pain 10/10; 08:33 BP 133 / 80; Pulse 91; Resp 18; Pulse Ox 96% on R/A; hj 09:30 BP 120 / 78; Pulse 90; Resp 18; Pulse Ox 100% on R/A; hj 10:24 BP 124 / 81; Pulse 89; Resp 18; Pulse Ox 100% on R/A; hj 07:55 Body Mass Index 24.13 (65.77 kg, 165.10 cm) sv MDM: 08:10 Patient medically screened. [facility] 08:38 Data reviewed: vital signs, nurses notes, lab test result(s), radiologic studies, MRI. [facility] 07/23 08:35 Order name: CBC with Diff; Complete Time: 09:59 [facility] 07/23 08:35 Order name: Comprehensive Metabolic Panel; Complete Time: 09:59 [facility] 07/23 08:35 Order name: Urine Culture [facility] 07/23 08:42 Order name: Lumbar Spine Wo Con EDMS 07/23 09:01 Order name: Urine Dipstick--Ancillary (enter results) 07/23 08:35 Order name: Urine Dipstick-Ancillary (obtain specimen); Complete Time: 09:00 [facility] Administered Medications: 08:40 Drug: NS 0.9% 500 ml Route: IV; Rate: bolus; Site: right antecubital; hj 10:00 Follow up: IV Status: Completed infusion hj 08:40 Drug: TORadol 30 mg Route: IVP; Site: right antecubital; hj 09:40 Follow up: Response: No adverse reaction; Pain is decreased hj 08:40 Drug: Zofran 4 mg Route: IVP; Site: right antecubital; hj 09:40 Follow up: Response: No adverse reaction; Nausea is decreased hj 08:40 Drug: Decadron - Dexamethasone 10 mg Route: IVP; Site: right antecubital; hj 09:40 Follow up: Response: No adverse reaction hj 08:40 Drug: fentaNYL (PF) 25 mcg Route: IVP; Site: right antecubital; hj 09:40 Follow up: Response: No adverse reaction; Pain is decreased hj 10:04 Drug: fentaNYL (PF) 25 mcg Route: IVP; Site: left antecubital; hj 10:20 Follow up: Response: No adverse reaction; Pain is decreased hj Disposition: 07/23/18 10:05 Discharged to Home. Impression: Low back pain, Sciatica, left side, Spondylolysis, lumbar region. - Condition is Stable. - Discharge Instructions: Back Pain, Adult, Chronic Back Pain, Musculoskeletal Pain, Sciatica, Back Pain, Adult, Hnjz-[id number]-Foex, Sciatica, Wriz-no-Otwe. - Prescriptions for Skelaxin 800 mg Oral Tablet - take 1 tablet by ORAL route every 6 hours As needed; 40 tablet. Tylenol- Codeine #3 300-30 mg Oral Tablet - take 2 tablet by ORAL route every 6 hours As needed; 30 tablet. Medrol (Brennon) 4 mg Oral Tablets, Dose Pack - take 1 tablet by ORAL route as directed - follow package instructions; 1 packet. Motrin IB 200 mg Oral Tablet - take 2 tablet by ORAL route every 6 hours As needed as needed with food; 40 tablet. - Medication Reconciliation Form, Thank You Letter, Antibiotic Education, Prescription Opioid Use form. - Follow up: Private Physician; When: 2 - 3 days; Reason: Recheck today's complaints, Continuance of care, Re-evaluation by your physician. - Problem is new. - Symptoms are resolved. Signatures: Dispatcher [facility] Britney Orellana RN RN sv Anderson, Corey, MD MD cha Joaquin, Henry, RN RN hj Corrections: (The following items were deleted from the chart) 10:25 10:05 07/23/2018 10:05 Discharged to Home. Impression: Low back pain; Sciatica, left hj side; Spondylolysis, lumbar region. Condition is Stable. Discharge Instructions: Back Pain, Adult, Chronic Back Pain, Musculoskeletal Pain, Sciatica, Back Pain, Adult, Yozt-wz-Tnor, Sciatica, [id number]. Prescriptions for Skelaxin 800 mg Oral Tablet - take 1 tablet by ORAL route every 6 hours As needed; 40 tablet, Tylenol-Codeine #3 300-30 mg Oral Tablet - take 2 tablet by ORAL route every 6 hours As needed; 30 tablet, Medrol (Brennon) 4 mg Oral Tablets, Dose Pack - take 1 tablet by ORAL route as directed - follow package instructions; 1 packet, Motrin IB 200 mg Oral Tablet - take 2 tablet by ORAL route every 6 hours As needed as needed with food; 40 tablet. and Forms are Medication Reconciliation Form, Thank You Letter, Antibiotic Education, Prescription Opioid Use. Follow up: Private Physician; When: 2 - 3 days; Reason: Recheck today's complaints, Continuance of care, Re-evaluation by your physician. Problem is new. Symptoms are resolved. kathleen
[2018-07-23 10:49] LABS: Urine Blood NEGATIVE (NEG); Urine Glucose NEGATIVE (NEG); Urine Protein NEGATIVE (NEG); Urine Specific Gravity 1.015 (1.005-1.030)
== END 2018-07-23 10:25 | disposition home or self-care (01) ==
LOC: ER 07:43
DX: M54.42 Lumbago with sciatica, left side (principal); M47.816 Spondylosis without myelopathy or radiculopathy, lumbar region; E78.5 Hyperlipidemia, unspecified; I10 Essential (primary) hypertension; Z79.899 Other long term (current) drug therapy
CPT/HCPCS: 36415; 72148; 80053; 81003; 85025; 87086; 87088; 99284; J2405; J3010

== ENCOUNTER 2019-04-14 08:21 | Emergency (ER) | payer MEDICARE ==
--- OUTSIDE RECORDS SUMMARY | 2019-04-14 08:23 | XMS REPORT ---
:1950 [facility] Address [address] [place] [address] [address] [place] [address] Care Team Providers Name Role Phone Unavailable Unavailable Unavailable Problems This patient has no known problems. Allergies, Adverse Reactions, Alerts This patient has no known allergies or adverse reactions. Medications This patient has no known medications.
[2019-04-14] MEDS ORDERED: MECLIZINE HCL 12.5 MG TAB ONE (09:03)
[2019-04-14] MEDS ORDERED: KETOROLAC 30 MG/ML INJ ONE (09:03)
[2019-04-14] MEDS ORDERED: ONDANSETRON 4 MG/2 ML VIAL ONE (09:03)
[2019-04-14] MEDS ORDERED: NA CHLORIDE 0.9% 500 ML ONE (09:04)
[2019-04-14 09:07] LABS: Absolute Lymphocytes (CBC) 2.2 K/uL (0.7-4.9); Basophils % 0.3 % (0-1.3); Hematocrit 40.1 % (36.0-45.0); Lymphocytes % 35.4 % (15.3-44.8); MPV 10.1 fL (7.6-11.3); RBC Red Blood Cell Count 4.38 M/uL (3.86-4.86)
[2019-04-14 09:08] LABS: Protime INR 0.96
--- NOTE | 2019-04-14 09:24 | RAD REPORT ---
EXAM DESCRIPTION: CT - [id number] - 04/14/2019 9:05 am CLINICAL HISTORY: Dizziness, headache, neck pain, hypertension COMPARISON: None. TECHNIQUE: Axial 5 mm thick images of the head were obtained. Axial 2 mm thick images of the cervic al spine were obtained with sagittal and coronal reconstruction images generated and reviewed. All CT scans are performed using dose optimization technique as appropriate and may include automated exposure control or mA/KV adjustment according to patient size. FINDINGS: No intracranial hemorrhage, mass, edema or acute intracranial finding. No acute cortical based infarc tion identified. No cortical edema or sulcal effacement. Mild atrophy and chronic ischemic changes ar e evident. Ventricles are in proportion to the volume loss. No extra-axial fluid collections. Mastoid air cells and partially visualized paranasal sinuses are clear. No globe or orbit abnormality seen. Cervical bodies are normal in height and normal. There is a right lateral tilt of the cervical spine that is likely a positioning artifact. Degenerative changes are present at the dens C1 level and ther e is disc space narrowing at C5-6. This results in a very slight retrolisthesis of C5. Moderate sever ity right foraminal stenosis at C5-6 from uncovertebral joint hypertrophy. Patient has an enlarged tr ansverse foramen on the right at C4. No destructive change seen. Vertebral artery through this region cannot be evaluated on noncontrast imaging. No other similar finding. Facet joint degenerative yusuf es are present. No fracture or acute bony abnormality. Central canal detail is inherently limited No paraspinal mass or hematoma. IMPRESSION: Patient has a mild atrophy and chronic ischemic change pattern. No acute intracranial fi nding. Cervical spine degenerative change at C5-6 with right foraminal stenosis. No fracture or acute bone f inding. Enlarged right transverse foramen at C3. The right vertebral artery appears tortuous within this enla rged foramen but not clearly enlarged. Assessment is limited in the absence of IV contrast.
[2019-04-14 09:29] LABS: ALT/SGPT 30 U/L (12-78); AST/SGOT 16 U/L (15-37); Alkaline Phosphatase 51 U/L (45-117); BUN Blood Urea Nitrogen 17 mg/dL (7-18); Bicarbonate 28 mmol/L (21-32); Bilirubin Direct < 0.1 mg/dL (0-0.2); Bilirubin Total 0.3 mg/dL (0.2-1.0); Glucose Level 119 mg/dL (74-106); Magnesium 2.2 mg/dL (1.8-2.4); NT PRO-BNP 97 pg/mL (<125); Potassium 3.4 mmol/L (3.5-5.1); Protein, Total 7.9 g/dL (6.4-8.2); Sodium Level 142 mmol/L (136-145); Troponin (Emerg Dept Use Only) < 0.02 ng/mL (0.0-0.045)
--- NOTE | 2019-04-14 09:56 | RAD REPORT ---
EXAM DESCRIPTION: RAD - Chest Single View - 04/14/2019 9:10 am CLINICAL HISTORY: Cough, weakness, dizziness COMPARISON: July 2018 TECHNIQUE: AP portable chest image was obtained 0910 hours . FINDINGS: Lung volumes are low. Interstitial pattern matches comparison. Heart and vasculature are n ormal. No measurable pleural effusion and no pneumothorax. No acute bony abnormality seen. No acute a ortic findings suspected. IMPRESSION: No acute cardiopulmonary process. No significant interval change.
--- NOTE | 2019-04-14 09:57 | ER ---
Nurse's Notes [facility] Name: Mary Ortega Age: 69 yrs Sex: Female : 1950 Arrival Date: 04/14/2019 Time: 08:23 Bed 8 Private MD: Diagnosis: Dizziness and giddiness;Essential (primary) hypertension;Vertiginous syndromes in diseases classified elsewhere, unspecified ear;Fall due to bumping against object-out of bed, nightstand;Hypokalemia Presentation: 04/14 08:25 Presenting complaint: Patient states: "I've been feeling very dizzy for the last 2 aa5 days". Pt reports dizziness is worse with any movement. Pt reports nausea and pain to back of head. Denies vomiting. 08:25 Transition of care: patient was not received from another setting of care. Onset of aa5 symptoms was April 2019. Risk Assessment: Do you want to hurt yourself or someone else? Patient reports no desire to harm self or others. Initial Sepsis Screen: Does the patient meet any 2 criteria? No. Patient's initial sepsis screen is negative. Does the patient have a suspected source of infection? No. Patient's initial sepsis screen is negative. Care prior to arrival: None. 08:25 Acuity: MYKE 3 aa5 08:25 Method Of Arrival: Wheelchair aa5 Historical: - Allergies: 08:45 No Known Allergies; aa5 - Home Meds: 08:45 lisinopril 5 mg Oral tab 1 tab once daily [Active]; omeprazole 20 mg Oral cpDR once aa5 daily [Active]; pravastatin 40 mg oral tab once daily [Active]; hydrocodone-acetaminophen 7.5-325 mg Oral tab as needed for Pain [Active]; - PMHx: 08:45 Hyperlipidemia; Hypertension; Chronic back and neck pain; aa5 - PSHx: 08:45 breast surgery; Hysterectomy; aa5 - Immunization history:: Adult Immunizations unknown. - Social history:: Smoking status: Patient/guardian denies using tobacco. - Family history:: not pertinent. - Ebola Screening: : No symptoms or risks identified at this time. Screenin:00 Abuse screen: Denies threats or abuse. Nutritional screening: No deficits noted. aa5 Tuberculosis screening: No symptoms or risk factors identified. Fall Risk Secondary diagnosis (15 points) dizziness at this time . IV access (20 points). Total Pruitt Fall Scale indicates Low Risk Score (25-44 pts). Fall prevention measures have been instituted. Side Rails Up X 2 Placed close to Nursing Station Family Present and informed to notify staff if they need to leave bedside. Assessment: 08:30 General: Appears uncomfortable, Behavior is calm, cooperative. Pain: Complains of pain aa5 in occipital area and base of the skull Pain does not radiate. Pain currently is 6 out of 10 on a pain scale. Quality of pain is described as aching, pressure, Pain began 1 month ago Is intermittent, lasting more than 1 hour. Neuro: Level of Consciousness is awake, alert, obeys commands, Oriented to person, place, time, situation, Housekeeper Supervisor are equal bilaterally Moves all extremities. Speech is normal, Facial symmetry appears normal, Pupils are PERRLA, Reports dizziness, headache. Cardiovascular: Heart tones S1 S2 present Edema is absent. Rhythm is sinus rhythm. Respiratory: Airway is patent Respiratory effort is even, unlabored, Respiratory pattern is regular, symmetrical, Breath sounds are clear bilaterally. Denies cough, shortness of breath. GI: Abdomen is round non-distended, Bowel sounds present X 4 quads. Abd is soft and non tender X 4 quads. Reports nausea, Patient currently denies diarrhea, vomiting. : No signs and/or symptoms were reported regarding the genitourinary system. EENT: No signs and/or symptoms were reported regarding the EENT system. Derm: Skin is pink, warm \\T\\ dry. Musculoskeletal: Range of motion: intact in all extremities. 09:01 Reassessment: Pt to CT via stretcher . aa5 09:20 Reassessment: Patient is alert, oriented x 3, equal unlabored respirations, skin aa5 warm/dry/pink. Pt back from CT. US at bedside. . 10:00 Reassessment: Patient is alert, oriented x 3, equal unlabored respirations, skin aa5 warm/dry/pink. Pt reports dizziness has not improved, reports headache has decreased to 5/10 on a pain scale. MD at bedside. . 11:15 Reassessment: Patient is alert, oriented x 3, equal unlabored respirations, skin aa5 warm/dry/pink. Patient states feeling better. 11:15 GI: Patient currently denies nausea. aa5 Vital Signs: 08:27 BP 187 / 103; Pulse 96; Resp 16 S; Temp 98.3(O); Pulse Ox 98% on R/A; Weight 68.04 kg aa5 (R); Height 5 ft. 5 in. (165.10 cm) (R); Pain 6/10; 08:48 BP 148 / 73; Pulse 92; Resp 16 S; Pulse Ox 98% on R/A; aa5 09:30 BP 147 / 83; Pulse 88; Resp 16 S; Pulse Ox 98% on R/A; aa5 10:15 BP 165 / 89; Pulse 69; Resp 16 S; Pulse Ox 98% on R/A; Pain 5/10; aa5 11:15 BP 143 / 80; Pulse 70; Resp 16 S; Temp 98.0(TE); Pulse Ox 98% on R/A; Pain 5/10; aa5 08:27 Body Mass Index 24.96 (68.04 kg, 165.10 cm) aa5 ED Course: 08:23 Patient arrived in ED. as 08:24 Pepe Anthony MD is Attending Physician. kathleen 08:25 Arm band placed on Patient placed in an exam room, on a stretcher. aa5 08:25 Patient has correct armband on for positive identification. Placed in gown. Bed in low aa5 position. Call light in reach. Side rails up X2. cardiac monitor technician on. Pulse ox on. NIBP on. 08:26 Rosalind Gutierrez, RN is Primary Nurse. aa5 08:47 Triage completed. aa5 08:48 EKG done, by ED staff, reviewed by Pepe Anthony MD. jb1 09:00 Initial lab(s) drawn, by tn, sent to lab. Inserted saline lock: 20 gauge in right aa5 antecubital area, using aseptic technique. Blood collected. 09:02 CT completed. Patient tolerated procedure well. Patient moved to radiology Patient bq moved back from CT. 09:08 CT Head C Spine In Process Unspecified. EDMS 09:10 XRAY Chest (1 view) In Process Unspecified. EDMS 09:56 Peter Lion MD is Referral Physician. kathleen 10:31 Radiology exam delayed due to tech ith OUT-pt exam. sg3 10:35 US Carotid Artery Bilateral In Process Unspecified. EDMS 11:15 No provider procedures requiring assistance completed. IV discontinued, intact, aa5 bleeding controlled, No redness/swelling at site. Pressure dressing applied. Administered Medications: 09:20 Drug: NS 0.9% 500 ml Route: IV; Rate: bolus; Site: right antecubital; aa5 10:00 Follow up: IV Status: Completed infusion; IV Intake: 500ml aa5 09:20 Drug: Meclizine 50 mg Route: PO; aa5 10:13 Follow up: Response: No adverse reaction; No change in condition aa5 09:20 Drug: Zofran 4 mg Route: IVP; Site: right antecubital; aa5 09:30 Follow up: Response: No adverse reaction aa5 09:22 Drug: TORadol 30 mg Route: IVP; Site: right antecubital; aa5 09:30 Follow up: Response: No adverse reaction aa5 10:00 Drug: Potassium Effervescent Tablet 25 mEq Route: PO; aa5 11:15 Follow up: Response: No adverse reaction aa5 Intake: 10:00 IV: 500ml; Total: 500ml. aa5 Outcome: 09:56 Discharge ordered by . kathleen 11:15 Discharged to home via wheelchair, with significant other. aa5 11:15 Condition: stable 11:15 Discharge instructions given to patient, significant other, Instructed on discharge instructions, follow up and referral plans. medication usage, Demonstrated understanding of instructions, follow-up care, medications, Prescriptions given X 3. 11:16 Patient left the ED. aa5 Signatures: Dispatcher [employer] [facility] Wil Fleming jb1 Pepe Anthony MD MD cha Quilty, Betty bq Martinez, Amelia as Calderon, Audri, RN RN aa5 Annika Salas sg3 Corrections: (The following items were deleted from the chart) 11:25 11:22 Patient left the ED. aa5 aa5
--- NOTE | 2019-04-14 09:57 | EDPHYS ---
Physician Documentation [facility] Name: Mary Ortega Age: 69 yrs Sex: Female : 1950 Arrival Date: 04/14/2019 Time: 08:23 Bed 8 Private MD: AMANDA Physician Pepe Anthony HPI: 04/14 08:41 This 69 yrs old Female presents to ER via Unassigned with complaints of kathleen Dizziness, Back Pain. 08:41 The patient presents with dizziness, generalized weakness. Onset: The symptoms/episode kathleen began/occurred this morning, today. Context: occurred at home. 08:41 The patient complains of pain to the left side of the back of head, left occipital kathleen area, left base of the skull, right side of the back of head, right occipital area and right base of the skull. The patient describes the headache as constant. Onset: The symptoms/episode began/occurred this morning. Details of fall: The patient fell from a height, off furniture, approximately 3 feet. Associated injuries: The patient sustained injury to the head, neck injury. Modifying factors: The symptoms are alleviated by closing eyes, holding head still, lying down, the symptoms are aggravated by movement of head, standing up. 08:44 Associated signs and symptoms: Pertinent positives: headache, nausea. kathleen Historical: - Allergies: 08:45 No Known Allergies; aa5 - Home Meds: 08:45 lisinopril 5 mg Oral tab 1 tab once daily [Active]; omeprazole 20 mg Oral cpDR once aa5 daily [Active]; pravastatin 40 mg oral tab once daily [Active]; hydrocodone-acetaminophen 7.5-325 mg Oral tab as needed for Pain [Active]; - PMHx: 08:45 Hyperlipidemia; Hypertension; Chronic back and neck pain; aa5 - PSHx: 08:45 breast surgery; Hysterectomy; aa5 - Immunization history:: Adult Immunizations unknown. - Social history:: Smoking status: Patient/guardian denies using tobacco. - Family history:: not pertinent. - Ebola Screening: : No symptoms or risks identified at this time. ROS: 08:41 Constitutional: Negative for fever, chills, and weight loss, Eyes: Negative for injury, kathleen pain, redness, and discharge, ENT: Negative for injury, pain, and discharge, Neck: Negative for injury, pain, and swelling, Cardiovascular: Negative for chest pain, palpitations, and edema, Respiratory: Negative for shortness of breath, cough, wheezing, and pleuritic chest pain, Abdomen/GI: Negative for abdominal pain, nausea, vomiting, diarrhea, and constipation, Back: Negative for injury and pain, : Negative for injury, bleeding, discharge, and swelling, MS/Extremity: Negative for injury and deformity, Skin: Negative for injury, rash, and discoloration, Psych: Negative for depression, anxiety, suicide ideation, homicidal ideation, and hallucinations, Allergy/Immunology: Negative for hives, rash, and allergies, Endocrine: Negative for neck swelling, polydipsia, polyuria, polyphagia, and marked weight changes, Hematologic/Lymphatic: Negative for swollen nodes, abnormal bleeding, and unusual bruising. 08:41 Neuro: Positive for dizziness, headache. Exam: 08:41 Constitutional: This is a well developed, well nourished patient who is awake, alert, kathleen and in no acute distress. Eyes: Pupils equal round and reactive to light, extra-ocular motions intact. Lids and lashes normal. Conjunctiva and sclera are non-icteric and not injected. Cornea within normal limits. Periorbital areas with no swelling, redness, or edema. ENT: Nares patent. No nasal discharge, no septal abnormalities noted. Tympanic membranes are normal and external auditory canals are clear. Oropharynx with no redness, swelling, or masses, exudates, or evidence of obstruction, uvula midline. Mucous membranes moist. Chest/axilla: Normal chest wall appearance and motion. Nontender with no deformity. No lesions are appreciated. Cardiovascular: Regular rate and rhythm with a normal S1 and S2. No gallops, murmurs, or rubs. Normal PMI, no JVD. No pulse deficits. Respiratory: Lungs have equal breath sounds bilaterally, clear to auscultation and percussion. No rales, rhonchi or wheezes noted. No increased work of breathing, no retractions or nasal flaring. Abdomen/GI: Soft, non-tender, with normal bowel sounds. No distension or tympany. No guarding or rebound. No evidence of tenderness throughout. Back: No spinal tenderness. No costovertebral tenderness. Full range of motion. Skin: Warm, dry with normal turgor. Normal color with no rashes, no lesions, and no evidence of cellulitis. MS/ Extremity: Pulses equal, no cyanosis. Neurovascular intact. Full, normal range of motion. Neuro: Awake and alert, GCS 15, oriented to person, place, time, and situation. Cranial nerves II-XII grossly intact. Motor strength 5/5 in all extremities. Sensory grossly intact. Cerebellar exam normal. Normal gait. Psych: Awake, alert, with orientation to person, place and time. Behavior, mood, and affect are within normal limits. 08:41 Neck: External neck: is normal, C-spine: appears grossly normal, Thyroid: appears normal, Trachea: is midline with no obvious abnormalities, no acute changes, ROM/movement: pain, limited range of motion, Meningeal signs: are not present, Kernig's sign is negative, Brudzinski's sign is negative. Vital Signs: 08:27 BP 187 / 103; Pulse 96; Resp 16 S; Temp 98.3(O); Pulse Ox 98% on R/A; Weight 68.04 kg aa5 (R); Height 5 ft. 5 in. (165.10 cm) (R); Pain 6/10; 08:48 BP 148 / 73; Pulse 92; Resp 16 S; Pulse Ox 98% on R/A; aa5 09:30 BP 147 / 83; Pulse 88; Resp 16 S; Pulse Ox 98% on R/A; aa5 10:15 BP 165 / 89; Pulse 69; Resp 16 S; Pulse Ox 98% on R/A; Pain 5/10; aa5 11:15 BP 143 / 80; Pulse 70; Resp 16 S; Temp 98.0(TE); Pulse Ox 98% on R/A; Pain 5/10; aa5 08:27 Body Mass Index 24.96 (68.04 kg, 165.10 cm) aa MDM: 08:32 Patient medically screened. [facility] 08:45 Data reviewed: vital signs, nurses notes, lab test result(s), EKG, radiologic studies, [facility] CT scan, plain films. 04/14 08:40 Order name: Basic Metabolic Panel [facility] 04/14 08:40 Order name: CBC with Diff [facility] 04/14 08:40 Order name: LFT's [facility] 04/14 08:40 Order name: Magnesium [facility] 04/14 08:40 Order name: NT PRO-BNP [facility] 04/14 08:40 Order name: PT-INR; Complete Time: 09:32 [facility] 04/14 08:40 Order name: Troponin (emerg Dept Use Only); Complete Time: 09:32 [facility] 04/14 08:40 Order name: XRAY Chest (1 view); Complete Time: 10:48 [facility] 04/14 08:44 Order name: Basic Metabolic Panel; Complete Time: 09:32 [facility] 04/14 08:44 Order name: CBC with Automated Diff; Complete Time: 09:32 [facility] 04/14 08:44 Order name: Liver (Hepatic) Function; Complete Time: 09:32 [facility] 04/14 08:44 Order name: Magnesium; Complete Time: 09:32 [facility] 04/14 08:44 Order name: NT PRO-BNP; Complete Time: 09:32 [facility] 04/14 10:21 Order name: Urine Dipstick--Ancillary (enter results); Complete Time: 10:48 [facility] 04/14 08:40 Order name: EKG; Complete Time: 08:44 [facility] 04/14 08:40 Order name: Cardiac monitoring; Complete Time: 08:49 [facility] 04/14 08:40 Order name: EKG - Nurse/Tech; Complete Time: 08:49 [facility] 04/14 08:40 Order name: IV Saline Lock; Complete Time: 09:26 [facility] 04/14 08:40 Order name: Labs collected and sent; Complete Time: 09:26 [facility] 04/14 08:40 Order name: O2 Per Protocol; Complete Time: 08:49 [facility] 04/14 08:40 Order name: O2 Sat Monitoring; Complete Time: 08:49 [facility] 04/14 08:40 Order name: CT Head C Spine; Complete Time: 09:32 [facility] 04/14 08:40 Order name: US Carotid Artery Bilateral [facility] 04/14 08:40 Order name: Urine Dipstick-Ancillary (obtain specimen); Complete Time: 10:20 [facility] Administered Medications: 09:20 Drug: NS 0.9% 500 ml Route: IV; Rate: bolus; Site: right antecubital; aa5 10:00 Follow up: IV Status: Completed infusion; IV Intake: 500ml aa5 09:20 Drug: Meclizine 50 mg Route: PO; aa5 10:13 Follow up: Response: No adverse reaction; No change in condition aa5 09:20 Drug: Zofran 4 mg Route: IVP; Site: right antecubital; aa5 09:30 Follow up: Response: No adverse reaction aa5 09:22 Drug: TORadol 30 mg Route: IVP; Site: right antecubital; aa5 09:30 Follow up: Response: No adverse reaction aa5 10:00 Drug: Potassium Effervescent Tablet 25 mEq Route: PO; aa5 11:15 Follow up: Response: No adverse reaction aa5 Disposition: 04/14/19 09:56 Discharged to Home. Impression: Dizziness and giddiness, Essential (primary) hypertension, Vertiginous syndromes in diseases classified elsewhere, unspecified ear, Fall due to bumping against object - out of bed, nightstand, Hypokalemia. - Condition is Stable. - Discharge Instructions: Benign Positional Vertigo, Potassium Content of Foods, Dizziness, Hypertension, Vertigo, Hypertension, Wpda-[id number], How to Take Your Blood Pressure, Hycw-os-Ruds, Aspirin and Your Heart, Hypokalemia, Dizziness, [id number]-rw-[id number], Managing Your Hypertension. - Prescriptions for Meclizine 25 mg Oral Tablet - take 1 tablet by ORAL route every 8 hours As needed; 30 tablet. Zofran 4 mg Oral Tablet - take 1 tablet by ORAL route every 12 hours As needed; 20 tablet. Medrol (Brennon) 4 mg Oral Tablets, Dose Pack - take 1 tablet by ORAL route as directed - follow package instructions; 1 packet. - Medication Reconciliation Form, Thank You Letter, Antibiotic Education, Prescription Opioid Use form. - Follow up: Private Physician; When: 2 - 3 days; Reason: Recheck today's complaints, Continuance of care, Re-evaluation by your physician. Follow up: [facility]; When: 2 - 3 days; Reason: Recheck today's complaints, Re-evaluation by your physician. - Problem is new. - Symptoms have improved. Signatures: Dispatcher [employer] EDPepe Mclaughlin MD MD cha Calderon, Audri, RN RN aa5 Corrections: (The following items were deleted from the chart) 11:22 09:56 04/14/2019 09:56 Discharged to Home. Impression: Dizziness and giddiness; aa5 Essential (primary) hypertension; Vertiginous syndromes in diseases classified elsewhere, unspecified ear; Fall due to bumping against object - out of bed, nightstand; Hypokalemia. Condition is Stable. Discharge Instructions: Benign Positional Vertigo, Dizziness, Hypertension, Vertigo, Hypertension, [id number], How to Take Your Blood Pressure, Aylh-jw-Qkvv, Aspirin and Your Heart, Dizziness, Hvgv-gv-Slnb, Managing Your Hypertension, Potassium Content of Foods, Hypokalemia. Prescriptions for Meclizine 25 mg Oral Tablet - take 1 tablet by ORAL route every 8 hours As needed; 30 tablet, Zofran 4 mg Oral Tablet - take 1 tablet by ORAL route every 12 hours As needed; 20 tablet, Medrol (Brennon) 4 mg Oral Tablets, Dose Pack - take 1 tablet by ORAL route as directed - follow package instructions; 1 packet. and Forms are Medication Reconciliation Form, Thank You Letter, Antibiotic Education, Prescription Opioid Use. Follow up: Private Physician; When: 2 - 3 days; Reason: Recheck today's complaints, Continuance of care, Re-evaluation by your physician. Follow up: Peter Lion; When: 2 - 3 days; Reason: Recheck today's complaints, Re-evaluation by your physician. Problem is new. Symptoms have improved. kathleen
[2019-04-14] MEDS ORDERED: POTASSIUM 25 MEQ EFFERV TAB ONE (10:06)
[2019-04-14 10:25] LABS: Urine Blood TRACE (NEG); Urine Glucose NEGATIVE (NEG); Urine Protein NEGATIVE (NEG); Urine pH 6.5 (5.0-7.0)
--- NOTE | 2019-04-14 10:48 | RAD REPORT ---
EXAM DESCRIPTION: - CP - 04/14/2019 10:31 am CLINICAL HISTORY: Dizziness, syncope COMPARISON: None. TECHNIQUE: Real-time sonographic evaluation of both carotid systems was performed. Bhatti scale and Do ppler interrogation were performed with waveform tracing bilaterally. FINDINGS: Normal high resistance waveforms are noted in both external carotid arteries. The common c arotid arteries and internal carotid arteries show normal low resistance waveforms. Calcified plaquing changes are present at the left carotid bulb. No significant narrowing of vessel l umen. Elsewhere no significant degree of plaquing change present. Peak systolic and end diastolic yenni ocity values and the ICA/CCA ratios are in the non-hemodynamically significant range. Antegrade flow seen in both vertebral arteries. Velocity values and ratios were recorded and are retained in the patient's imaging records. IMPRESSION: No significant atherosclerotic changes noted. No evidence of a hemodynamically significant stenosis.
--- NOTE | 2019-04-15 07:37 | EKG ---
Test Date: 2019-04-14 Test Time: 08:43:30 Embossing Calender Operator: REMINGTON MEASUREMENT RESULTS: Intervals: Rate: 93 CA: 156 QRSD: 70 QT: 368 QTc: 457 [place]: P: 22 CA: 156 QRS: 9 T: 53 INTERPRETIVE STATEMENTS: Normal sinus rhythm Moderate voltage criteria for LVH, may be normal variant Borderline ECG Compared to ECG 07/10/2018 06:19:48 Left ventricular hypertrophy now present Electronically Signed On 04-15-19 07:36:08 CDT by Abebe Chamberlain
== END 2019-04-14 11:22 | disposition home or self-care (01) ==
LOC: ER 08:21
DX: I10 Essential (primary) hypertension (principal); H82.9 Vertiginous syndromes in diseases classified elsewhere, unspecified ear; E87.6 Hypokalemia; W18.09XA Striking against other object with subsequent fall, initial encounter; Y93.9 Activity, unspecified; Y92.009 Unspecified place in unspecified non-institutional (private) residence as the place of occurrence of the external cause; E78.5 Hyperlipidemia, unspecified
CPT/HCPCS: 96361; 93005; 85025; 80048; 36415; 83735; 85610; 80076; 81003; 84484; 83880; 70450; 72125; 71045; 93880; 96375; 96374; 99285; J2405

== ENCOUNTER 2020-03-25 13:40 | Emergency (ER) | payer MEDICARE ==
--- OUTSIDE RECORDS SUMMARY | 2020-03-25 13:47 | XMS REPORT | Continuity of Care Document ---
:1950 [address] [facility] t Address [address] [place] [address] [address] [place] [address] Care Team Providers Name Role Phone Unavailable Unavailable Unavailable Problems This patient has no known problems. Allergies, Adverse Reactions, Alerts This patient has no known allergies or adverse reactions. Medications This patient has no known medications. Procedures This patient has no known procedures. Results This patient has no known results.
[2020-03-25] MEDS ORDERED: HYDROCOD 2.5mg-ACETAMIN 108mg/5mL Soln ONE (15:48)
[2020-03-25 16:00] LABS: Absolute Lymphocytes (CBC) 1.4 K/uL (0.7-4.9); Basophils % 0.3 % (0-1.3); Hematocrit 40.1 % (36.0-45.0); Lymphocytes % 18.4 % (15.3-44.8); MPV 9.9 fL (7.6-11.3); RBC Red Blood Cell Count 4.34 M/uL (3.86-4.86)
--- NOTE | 2020-03-25 16:12 | RAD REPORT ---
EXAM DESCRIPTION: CT - Soft Tissue Neck W/Contr - 03/25/2020 3:58 pm CLINICAL HISTORY: Neck swelling and pain COMPARISON: None. TECHNIQUE: Computed axial tomography of the neck was obtained. 50 cc Isovue 300 was administered in travenously. Coronal and sagittal reconstruction was performed. All CT scans are performed using dose optimization technique as appropriate and may include automated exposure control or mA/KV adjustment according to patient size. FINDINGS: The pharynx, tongue base, larynx and subglottic trachea appear unremarkable The parotid, submandibular and thyroid glands appear unremarkable. No lymphadenopathy is seen. No fluid collection noted. The sinuses and mastoids are clear. IMPRESSION: No acute abnormality displayed
[2020-03-25 16:14] LABS: C-Reactive Protein 9.93 mg/L (<3.00); Potassium 3.8 mmol/L (3.5-5.1)
--- NOTE | 2020-03-25 16:14 | RAD REPORT ---
EXAM DESCRIPTION: Sarah Single View03/25/2020 3:45 pm CLINICAL HISTORY: Chest swelling COMPARISON: 2019 FINDINGS: The lungs appear clear of acute infiltrate. The heart is normal size IMPRESSION: No acute abnormalities displayed
--- NOTE | 2020-03-25 17:32 | ER ---
Nurse's Notes [facility] Name: Mary Ortega Age: 70 yrs Sex: Female : 1950 Arrival Date: 03/25/2020 Time: 13:54 Bed 23 Private MD: Diagnosis: Dysphagia, unspecified;Acute pharyngitis Presentation: 03/25 14:36 Chief complaint: Spouse and/or significant other states: "I wonder if she has mumps or jl7 something?" Reports swelling to right side of neck and cause pain with swallowing x 2 months. Pt reports fever last night of 102. Coronavirus screen: Patient denies a cough. Patient denies shortness of breath or difficulty breathing. Patient reports a measured and/or subjective temperature greater than 100.4F. Patient denies travel on a cruise ship or to a country the [facility] currently lists as an affected area. Patient denies contact with known and/or suspected case of COVID-19. Patient was placed back in the lobby due to no available rooms at this time. Patient was instructed to always wear their mask and to isolate themselves as much as possible from others in the lobby. Ebola Screen: No symptoms or risks identified at this time. Initial Sepsis Screen: Does the patient meet any 2 criteria? No. Patient's initial sepsis screen is negative. Does the patient have a suspected source of infection? No. Patient's initial sepsis screen is negative. Risk Assessment: Do you want to hurt yourself or someone else? Patient reports no desire to harm self or others. Onset of symptoms was January 2020. Care prior to arrival: None. Transition of care: patient was not received from another setting of care. 14:36 Method Of Arrival: Wheelchair jl7 14:36 Acuity: MYKE 3 jl7 Triage Assessment: 15:49 General: Appears in no apparent distress. Behavior is calm, cooperative. ll1 Historical: - Allergies: 14:42 No Known Allergies; jl7 - PMHx: 14:42 Back pain; Chronic back and neck pain; Hyperlipidemia; Hypertension; jl7 - PSHx: 14:42 breast surgery; Hysterectomy; jl7 - Immunization history:: Adult Immunizations up to date. - Social history:: Smoking status: Patient denies any tobacco usage or history of. Screenin:48 Abuse screen: Denies threats or abuse. Nutritional screening: No deficits noted. ll1 Tuberculosis screening: No symptoms or risk factors identified. Fall Risk No fall in past 12 months (0 pts). IV access (20 points). Total Pruitt Fall Scale indicates No Risk (0-24 pts). Assessment: 15:48 Pain: Complains of pain in R throat Pain currently is 10 out of 10 on a pain scale. ll1 Quality of pain is described as aching, Pain began 2 months, worsening pain for 2 weeks. Neuro: No deficits noted. Cardiovascular: No deficits noted. Respiratory: Airway is patent Trachea midline Respiratory effort is even, unlabored, Respiratory pattern is regular, symmetrical. EENT: Throat right sided throat pain. Reports difficulty swallowing. 16:45 Reassessment: Patient appears in no apparent distress at this time. No changes from ll1 previously documented assessment. Patient and/or family updated on plan of care and expected duration. Pain level reassessed. Patient is alert, oriented x 3, equal unlabored respirations, skin warm/dry/pink. Respiratory: Breath sounds are clear. 17:30 Reassessment: Patient appears in no apparent distress at this time. Patient and/or vc family updated on plan of care and expected duration. Pain level reassessed. Patient is alert, oriented x 3, equal unlabored respirations, skin warm/dry/pink. Patient states she is still experiencing pain, meds given will continue to monitor. 17:34 Reassessment: Patient to be discharged after shot time. vc 17:34 General: Appears in no apparent distress. uncomfortable, Behavior is cooperative, vc appropriate for age, anxious. Vital Signs: 14:36 BP 137 / 91; Pulse 109; Resp 17; Temp 98; Pulse Ox 100% ; Pain 10/10; jl7 15:47 BP 156 / 102; Pulse 98; Resp 17; Pulse Ox 100% ; ll1 16:45 BP 112 / 73; Pulse 90; Resp 18; Pulse Ox 98% ; ll1 17:30 BP 109 / 74; Pulse 84; Resp 18; Pulse Ox 99% on R/A; vc ED Course: 13:54 Patient arrived in ED. fj1 14:41 Triage completed. jl7 14:42 Arm band placed on right wrist. jl7 15:09 Tiffanie Alanis, SU is Primary Nurse. ll1 15:14 Pepe Bundy PA is PHCP. cp 15:14 Mikhail Nix MD is Attending Physician. cp 15:30 Inserted saline lock: 20 gauge in left antecubital area, using aseptic technique. Blood vc collected. 15:46 XRAY Chest (1 view) In Process Unspecified. EDMS 15:50 Patient has correct armband on for positive identification. Bed in low position. Call ll1 light in reach. Side rails up X 1. Pulse ox on. NIBP on. 15:59 CT Soft Tissue Neck W/contr In Process Unspecified. EDMS 17:30 Britney Bettencourt MD is Referral Physician. cp 17:36 No provider procedures requiring assistance completed. Inserted. vc 17:54 IV discontinued, intact, bleeding controlled, No redness/swelling at site. Pressure vc dressing applied. Administered Medications: 15:46 Drug: Lortab Liquid 15 ml {Note: RASS 0.} Route: PO; ll1 16:46 Follow up: Response: No adverse reaction; Pain is decreased; RASS: Alert and Calm (0) ll1 17:34 Drug: TORadol - Ketorolac 15 mg Route: IVP; Site: left antecubital; vc 17:54 Follow up: Response: No adverse reaction vc Outcome: 17:32 Discharge ordered by MD. cp 17:54 Discharged to home ambulatory, with cane, in waiting room vc 17:54 Condition: good 17:54 Discharge instructions given to patient, Instructed on discharge instructions, follow up and referral plans. medication usage, Demonstrated understanding of instructions, follow-up care, medications, Prescriptions given X 2. 17:55 Patient left the ED. vc Signatures: Dispatcher [employer] EDWY Pepe Bundy PA PA cp Yazmin Trna RN RN jl7 Rohini Graham RN RN vc Ryan Jones fj1 Tiffanie Alanis RN RN ll1 Corrections: (The following items were deleted from the chart) 15:47 15:46 Lortab Liquid 15 ml PO ll1 ll1
--- NOTE | 2020-03-25 17:32 | EDPHYS ---
Physician Documentation [facility] Name: Mary Ortega Age: 70 yrs Sex: Female : 1950 Arrival Date: 03/25/2020 Time: 13:54 Bed 23 Private MD: ED Physician Mihkail Nix HPI: 03/25 15:30 This 70 yrs old Female presents to ER via Wheelchair with complaints of Sore cp Throat, Neck Swelling. 15:30 The patient presents with sore throat, dysphagia, of solids, swelling and pain right cp side of neck. Onset: The symptoms/episode began/occurred 2 month(s) ago, and became worse 2 week(s) ago. Severity of symptoms: in the emergency department the symptoms are unchanged, despite home interventions. Associated signs and symptoms: Pertinent positives: reported fever last night of 102, Pertinent negatives chest pain, cough, earache, shortness of breath, vomiting. Historical: - Allergies: 14:42 No Known Allergies; jl7 - PMHx: 14:42 Back pain; Chronic back and neck pain; Hyperlipidemia; Hypertension; jl7 - PSHx: 14:42 breast surgery; Hysterectomy; jl7 - Immunization history:: Adult Immunizations up to date. - Social history:: Smoking status: Patient denies any tobacco usage or history of. ROS: 15:35 ENT: Positive for difficulty swallowing, sore throat, Negative for ear pain, difficulty cp handling secretions. 15:35 Neck: Positive for pain at rest, swelling, tenderness. 15:35 Constitutional: Negative for body aches, chills, fever, poor PO intake. cp 15:35 Cardiovascular: Negative for chest pain, edema, palpitations. 15:35 Respiratory: Negative for cough, shortness of breath, wheezing. 15:35 Abdomen/GI: Negative for abdominal pain, nausea, vomiting, and diarrhea. 15:35 Neuro: Negative for altered mental status, headache, weakness. 15:35 All other systems are negative. Exam: 15:45 Constitutional: The patient appears in no acute distress, alert, awake, cp non-diaphoretic, non-toxic, well developed, well nourished. 15:45 Head/Face: Normocephalic, atraumatic. cp 15:45 Eyes: Periorbital structures: appear normal, Conjunctiva: normal, no exudate, no injection, Sclera: no appreciated abnormality, Lids and lashes: appear normal, bilaterally. 15:45 ENT: External ear(s): are unremarkable, Ear canal(s): are normal, clear, TM's: dullness, bilaterally, Nose: is normal, Mouth: Lips: moist, Oral mucosa: pink and intact, moist, Posterior pharynx: Airway: no evidence of obstruction, patent, Tonsils: no enlargement, no exudate, Uvula: midline, swelling, is not appreciated, erythema, is not appreciated, exudate, is not appreciated, Dental exam: dental caries, that is mild, diffusely, Voice: is normal. 15:45 Neck: External neck: tenderness, that is moderate, right side anterior neck, ROM/movement: limited range of motion, is not appreciated, Meningeal signs: are not present, nuchal rigidity, is not appreciated. 15:45 Chest/axilla: Inspection: normal, Palpation: is normal, no crepitus, no tenderness. 15:45 Cardiovascular: Rate: tachycardic, Rhythm: regular. 15:45 Respiratory: the patient does not display signs of respiratory distress, Respirations: cp normal, no use of accessory muscles, no retractions, labored breathing, is not present, Breath sounds: are clear throughout, no decreased breath sounds, no stridor, no wheezing. 15:45 Abdomen/GI: Exam negative for discomfort, distension, guarding, Inspection: abdomen appears normal. 15:45 Back: pain, is absent, ROM is normal. cp 15:45 Skin: cellulitis, is not appreciated, no rash present. 15:45 Neuro: Orientation: to person, place \T\ time. Mentation: is normal, Motor: moves all fours, strength is normal. Vital Signs: 14:36 BP 137 / 91; Pulse 109; Resp 17; Temp 98; Pulse Ox 100% ; Pain 10/10; jl7 15:47 BP 156 / 102; Pulse 98; Resp 17; Pulse Ox 100% ; ll1 16:45 BP 112 / 73; Pulse 90; Resp 18; Pulse Ox 98% ; ll1 17:30 BP 109 / 74; Pulse 84; Resp 18; Pulse Ox 99% on R/A; vc MDM: 15:20 Patient medically screened. cp 15:30 Differential diagnosis: group A strep tonsillitis, peritonsillar abscess pharyngitis, cp retropharyngeal abcess tonsillitis, uvulitis. 17:29 Data reviewed: vital signs, nurses notes, lab test result(s), radiologic studies, CT cp scan. ED course: website for [place] prescription monitoring program shows patient received RX for narcotic pain meds on 03/04/2020, narcotic score of 411 and sedative score of 331. 17:31 Counseling: I had a detailed discussion with the patient and/or guardian regarding: the cp historical points, exam findings, and any diagnostic results supporting the discharge/admit diagnosis, lab results, radiology results, the need for outpatient follow up, an ENT specialist, to return to the emergency department if symptoms worsen or persist or if there are any questions or concerns that arise at home. 17:31 Response to treatment: the patient's symptoms have markedly improved after treatment, cp and as a result, I will discharge patient. 03/25 15:23 Order name: CBC with Diff; Complete Time: 17:13 03/25 17:13 Interpretation: Reviewed. 03/25 15:23 Order name: BMP; Complete Time: 16:43 cp 03/25 16:43 Interpretation: Normal except: GFR 83. 03/25 15:23 Order name: CRP; Complete Time: 16:43 cp 03/25 16:43 Interpretation: Abnormal: C-REACTIVE PROT 9.93. 03/25 15:23 Order name: ESR; Complete Time: 17:13 cp 03/25 15:23 Order name: PT-INR; Complete Time: 16:43 cp 03/25 15:23 Order name: Strep; Complete Time: 16:43 cp 03/25 16:44 Interpretation: Reviewed. 03/25 15:23 Order name: [place] Screen Profile; Complete Time: 16:43 cp 03/25 15:23 Order name: XRAY Chest (1 view); Complete Time: 16:43 cp 03/25 15:34 Order name: CT Soft Tissue Neck W/contr; Complete Time: 16:43 cp 03/25 15:58 Order name: CREATININE WHOLE BLOOD; Complete Time: 16:43 EDMS 03/25 16:05 Order name: Throat Culture EDMS 03/25 15:23 Order name: IV; Complete Time: 15:30 cp Administered Medications: 15:46 Drug: Lortab Liquid 15 ml {Note: RASS 0.} Route: PO; ll1 16:46 Follow up: Response: No adverse reaction; Pain is decreased; RASS: Alert and Calm (0) ll1 17:34 Drug: TORadol - Ketorolac 15 mg Route: IVP; Site: left antecubital; vc 17:54 Follow up: Response: No adverse reaction vc Disposition: 18:00 Chart complete. cp 18:29 Co-signature as Attending Physician, Mikhail Nix MD. rn Disposition: 03/25/20 17:32 Discharged to Home. Impression: Dysphagia, unspecified, Acute pharyngitis. - Condition is Stable. - Discharge Instructions: Dysphagia, Pharyngitis, Sore Throat. - Prescriptions for Amoxicillin 875 mg Oral Tablet - take 1 tablet by ORAL route every 12 hours for 10 days; 20 tablet. Ibuprofen 800 mg Oral Tablet - take 1 tablet by ORAL route every 8 hours As needed take with food; 30 tablet. - Medication Reconciliation Form, Thank You Letter, Antibiotic Education, Prescription Opioid Use form. - Follow up: Britney Bettencourt MD; When: 2 - 3 days; Reason: Recheck today's complaints. - Problem is an ongoing problem. - Symptoms have improved. Signatures: Dispatcher [employer] EDMO Mikhail Nix MD MD rn Page, Corey, PA PA cp Yazmin Tran RN RN jl7 Rohini Graham RN RN vc Tiffanie Alanis RN RN ll1 Corrections: (The following items were deleted from the chart) 15:37 15:23 Neck Angio+CT.RAD.BRZ ordered. [facility] 15:45 15:30 Associated signs and symptoms: Pertinent positives: reported fever last night, cp Pertinent negatives chest pain, cough, earache, shortness of breath, vomiting, cp 17:55 17:32 03/25/2020 17:32 Discharged to Home. Impression: Dysphagia, unspecified; Acute vc pharyngitis. Condition is Stable. Forms are Medication Reconciliation Form, Thank You Letter, Antibiotic Education, Prescription Opioid Use. Follow up: Britney Bettencourt; When: 2 - 3 days; Reason: Recheck today's complaints. Problem is an ongoing problem. Symptoms have improved. cp
[2020-03-25] MEDS ORDERED: KETOROLAC 30 MG/ML INJ ONE (17:38)
[2020-03-25 23:22] VITALS: TEMP 98
[2020-03-25 23:25] VITALS: BP 109/74; O2SAT 99
== END 2020-03-25 17:55 | disposition home or self-care (01) ==
LOC: ER 13:40
DX: R13.10 Dysphagia, unspecified (principal); J02.9 Acute pharyngitis, unspecified
CPT/HCPCS: 87070; 85025; 80048; 36415; 86308; 85610; 82565; 87081; 85652; 86140; 70491; 71045; 96374; 99284; Q9967

== ENCOUNTER 2020-05-04 05:50 | Emergency (ER) | payer MEDICARE, OTHER ==
--- OUTSIDE RECORDS SUMMARY | 2020-05-04 05:51 | XMS REPORT | Continuity of Care Document ---
:1950 Author Organization [facility] t Address [address] [place] [address] [address] [place] [address] Care Team Providers Name Role Phone Unavailable Unavailable Unavailable Problems This patient has no known problems. Allergies, Adverse Reactions, Alerts This patient has no known allergies or adverse reactions. Medications This patient has no known medications. Procedures This patient has no known procedures. Results This patient has no known results.
--- NOTE | 2020-05-04 08:19 | RAD REPORT ---
EXAM DESCRIPTION: Sarah Single View05/04/2020 7:54 am CLINICAL HISTORY: Cough COMPARISON: March 2020 FINDINGS: The lungs appear clear of acute infiltrate. The heart is normal size IMPRESSION: No acute abnormalities displayed
--- NOTE | 2020-05-04 08:27 | ER ---
Nurse's Notes [facility] Name: Mary Ortega Age: 70 yrs Sex: Female : 1950 Arrival Date: 05/04/2020 Time: 05:54 Bed 19 Private MD: Diagnosis: Acute upper respiratory infection, unspecified Presentation: 05/04 06:11 Chief complaint: Patient states: CHILLS, SORE THROAT, NASAL CONGESTION, FOR THREE DAYS. rv WITH NAUSEA AND VOMITING. DENIES DIARRHEA. Coronavirus screen: Client denies travel out of the [place] in the last 14 days. chills, cough unrelated to allergies, nausea, runny nose, sore throat, vomiting. Ebola Screen: No symptoms or risks identified at this time. Initial Sepsis Screen: Does the patient meet any 2 criteria? HR > 90 bpm. Does the patient have a suspected source of infection? Yes: Productive cough/pneumonia. Risk Assessment: Do you want to hurt yourself or someone else? Patient reports no desire to harm self or others. Onset of symptoms was May 01, 2020. 06:11 Method Of Arrival: Ambulatory rv 06:11 Acuity: MYKE 3 rv Triage Assessment: 06:14 General: Appears comfortable, Behavior is calm, cooperative. Pain: Denies pain. EENT: rv Throat is clear is pink Reports SORE THROAT. Neuro:. Neuro: Level of Consciousness is awake, alert, obeys commands, Oriented to person, place, time, situation. Cardiovascular: Patient's skin is warm and dry. Respiratory: Airway is patent Respiratory effort is even, unlabored, Breath sounds are clear bilaterally. GI: Abdomen is flat, non-distended, Reports nausea, vomiting, Patient currently denies diarrhea. Derm: Skin is healthy with good turgor. Historical: - Allergies: 06:14 No Known Allergies; rv - PMHx: 06:14 Back pain; Chronic back and neck pain; Hyperlipidemia; Hypertension; rv - PSHx: 06:14 Hysterectomy; rv - Immunization history:: Adult Immunizations up to date. - Social history:: Smoking status: Patient denies any tobacco usage or history of. Screenin:16 Abuse screen: Denies threats or abuse. Denies injuries from another. Nutritional rv screening: No deficits noted. Tuberculosis screening: No symptoms or risk factors identified. Fall Risk None identified. Assessment: 07:22 Reassessment: Patient appears in no apparent distress at this time. Patient and/or tw2 family updated on plan of care and expected duration. Pain level reassessed. Patient is alert, oriented x 3, equal unlabored respirations, skin warm/dry/pink. 07:38 Reassessment: xray at bedside at this time. tw2 08:15 Reassessment: Patient appears in no apparent distress at this time. Patient and/or tw2 family updated on plan of care and expected duration. Pain level reassessed. Patient is alert, oriented x 3, equal unlabored respirations, skin warm/dry/pink. 08:51 Reassessment: Patient appears in no apparent distress at this time. Patient and/or tw2 family updated on plan of care and expected duration. Pain level reassessed. Patient is alert, oriented x 3, equal unlabored respirations, skin warm/dry/pink. Vital Signs: 06:11 BP 143 / 101; Pulse 110; Resp 18; Temp 98.3; Pulse Ox 97% ; Weight 66.68 kg; Height 5 rv ft. 5 in. (165.10 cm); Pain 0/10; 07:22 BP 145 / 85; Pulse 87; Resp 17; Pulse Ox 95% on R/A; tw2 08:15 BP 149 / 86; Pulse 87; Resp 17; Pulse Ox 97% on R/A; tw2 08:47 BP 151 / 92; Pulse 82; Resp 17; Pulse Ox 99% on R/A; tw2 06:11 Body Mass Index 24.46 (66.68 kg, 165.10 cm) rv ED Course: 05:54 Patient arrived in ED. cl3 06:03 Hudson Diallo, SU is Primary Nurse. rv 06:06 Karen Omalley FNP-C is PHCP. snw 06:06 Franky Portillo MD is Attending Physician. snw 06:13 Triage completed. rv 06:16 Arm band placed on Patient placed in the treatment room, on a stretcher, Patient rv notified of wait time. 06:16 Patient has correct armband on for positive identification. Pulse ox on. NIBP on. rv 07:09 Primary Nurse role handed off by Hudson Diallo RN tw2 07:09 Rivas, Nessa, RN is Primary Nurse. tw2 07:55 Chest Single View XRAY In Process Unspecified. EDMS 08:14 Urine Culture Sent. tw2 08:14 Urine Microscopic Only Sent. tw2 08:51 No provider procedures requiring assistance completed. Patient did not have IV access tw2 during this emergency room visit. Administered Medications: 08:29 Drug: Zithromax 500 mg Route: PO; tw2 08:52 Follow up: Response: No adverse reaction tw2 Outcome: : Discharge ordered by . snkaleigh 08:51 Discharged to home via wheelchair. tw2 08:51 Condition: stable 08:51 Discharge instructions given to patient, Instructed on discharge instructions, follow up and referral plans. medication usage, Demonstrated understanding of instructions, follow-up care, medications, Prescriptions given X 3. 08:52 Patient left the ED. tw2 Signatures: Dispatcher [employer] EDMS Karen Omalley, TRICOT KNITTER-C TRICOT KNITTER-Csnw Nessa Rivas RN RN tw2 Hudson Diallo RN RN Doug Jensen cl3
--- NOTE | 2020-05-04 08:27 | EDPHYS ---
Physician Documentation [facility] Name: aMry Ortega Age: 70 yrs Sex: Female : 1950 Arrival Date: 05/04/2020 Time: 05:54 Bed 19 Private MD: ED Physician Franky Portillo HPI: 05/04 07:02 This 70 yrs old Female presents to ER via Ambulatory with complaints of Flu snw Symptoms. 07:02 The patient or guardian reports cough, described as moderate, flu symptoms, low-grade snw fever, myalgias, no appetite. Onset: The symptoms/episode began/occurred suddenly, 3 day(s) ago, and became persistent. Severity of symptoms: At their worst the symptoms were moderate. Associated signs and symptoms: Pertinent positives: sore throat. The patient has not experienced similar symptoms in the past. The patient has not recently seen a physician. Historical: - Allergies: 06:14 No Known Allergies; rv - PMHx: 06:14 Back pain; Chronic back and neck pain; Hyperlipidemia; Hypertension; rv - PSHx: 06:14 Hysterectomy; rv - Immunization history:: Adult Immunizations up to date. - Social history:: Smoking status: Patient denies any tobacco usage or history of. ROS: 07:01 Constitutional: Negative for fever, chills, and weight loss, Eyes: Negative for injury, snw pain, redness, and discharge, ENT: Negative for injury, pain, and discharge, Neck: Negative for injury and swelling, + sore throat Cardiovascular: Negative for chest pain, palpitations, and edema, Abdomen/GI: Negative for abdominal pain, nausea, vomiting, diarrhea, and constipation, Back: Negative for injury and pain, : Negative for injury, bleeding, discharge, and swelling, MS/Extremity: Negative for injury and deformity, Skin: Negative for injury, rash, and discoloration, Neuro: Negative for headache, weakness, numbness, tingling, and seizure. 07:01 Respiratory: Positive for cough, shortness of breath. Exam: 07:00 Constitutional: This is a well developed, well nourished patient who is awake, alert, snw and in no acute distress. Head/Face: Normocephalic, atraumatic. Eyes: Pupils equal round and reactive to light, extra-ocular motions intact. Lids and lashes normal. Conjunctiva and sclera are non-icteric and not injected. Cornea within normal limits. Periorbital areas with no swelling, redness, or edema. 07:00 Neck: Trachea midline, no thyromegaly or masses palpated, and no cervical lymphadenopathy. Supple, full range of motion without nuchal rigidity, or vertebral point tenderness. No Meningismus. Chest/axilla: Normal chest wall appearance and motion. Nontender with no deformity. No lesions are appreciated. 07:00 Back: No spinal tenderness. No costovertebral tenderness. Full range of motion. Skin: Warm, dry with normal turgor. Normal color with no rashes, no lesions, and no evidence of cellulitis. MS/ Extremity: Pulses equal, no cyanosis. Neurovascular intact. Full, normal range of motion. Neuro: Awake and alert, GCS 15, oriented to person, place, time, and situation. Cranial nerves II-XII grossly intact. Motor strength 5/5 in all extremities. Sensory grossly intact. Cerebellar exam normal. Normal gait. Psych: Awake, alert, with orientation to person, place and time. Behavior, mood, and affect are within normal limits. 07:00 ENT: Posterior pharynx: erythema, that is mild, Voice: is normal. 07:00 Cardiovascular: Rate: tachycardic, Rhythm: regular, Pulses: no pulse deficits are appreciated. 07:00 Respiratory: Exam negative for acute changes, Breath sounds: are clear throughout, + dry cough. 07:00 Abdomen/GI: Exam negative for Vital Signs: 06:11 BP 143 / 101; Pulse 110; Resp 18; Temp 98.3; Pulse Ox 97% ; Weight 66.68 kg; Height 5 rv ft. 5 in. (165.10 cm); Pain 0/10; 07:22 BP 145 / 85; Pulse 87; Resp 17; Pulse Ox 95% on R/A; tw2 08:15 BP 149 / 86; Pulse 87; Resp 17; Pulse Ox 97% on R/A; tw2 08:47 BP 151 / 92; Pulse 82; Resp 17; Pulse Ox 99% on R/A; tw2 06:11 Body Mass Index 24.46 (66.68 kg, 165.10 cm) rv MDM: 06:08 Patient medically screened. snw 08:28 Data reviewed: vital signs, nurses notes. Data interpreted: Pulse oximetry: on room air snw is 97 %. Interpretation: normal. Counseling: I had a detailed discussion with the patient and/or guardian regarding: the historical points, exam findings, and any diagnostic results supporting the discharge/admit diagnosis, the presence of at least one elevated blood pressure reading (>120/80) during this emergency department visit, lab results, radiology results, the need for outpatient follow up, to return to the emergency department if symptoms worsen or persist or if there are any questions or concerns that arise at home. Special discussion: I have referred the patient to see his PCP for further evaluation of high blood pressure. Based on the history and exam findings, there is no indication for further emergent testing or inpatient evaluation. I discussed with the patient/guardian the need to see the primary care provider for further evaluation of the symptoms. 05/04 06:07 Order name: Flu; Complete Time: 07:14 snw 05/04 06:07 Order name: COVID-19 snw 05/04 06:07 Order name: Strep; Complete Time: 07:14 snw 05/04 06:07 Order name: Urine Culture snw 05/04 06:07 Order name: Urine Microscopic Only snw 05/04 07:14 Order name: Throat Culture EDMS 05/04 06:07 Order name: Urine Dipstick-Ancillary (obtain specimen); Complete Time: 08:14 snw 05/04 07:01 Order name: Chest Single View XRAY; Complete Time: 08:24 snw Administered Medications: 08:29 Drug: Zithromax 500 mg Route: PO; tw2 08:52 Follow up: Response: No adverse reaction tw2 Disposition: 05/04/20 08:26 Discharged to Home. Impression: Acute upper respiratory infection, unspecified. - Condition is Stable. - Discharge Instructions: Upper Respiratory Infection, Adult, Viral Respiratory Infection, Rehydration, Adult, COVID-19. - Prescriptions for Zithromax Z- Brennon 250 mg Oral Tablet - take 1 tablet by ORAL route as directed for 5 days Day 1 - take two (2) tablets one time. Day 2, 3, 4 , 5 take one (1) tablet once daily.; 6 tablet. Prednisone 20 mg Oral Tablet - take 2 tablet by ORAL route once daily for 5 days; 10 tablet. promethazine 25 mg Oral Tablet - take 1 tablet by ORAL route every 6 hours As needed; 20 tablet. - Medication Reconciliation Form, Thank You Letter, Antibiotic Education, Prescription Opioid Use form. - Follow up: Emergency Department; When: As needed; Reason: Worsening of condition. Follow up: Private Physician; When: 2 - 3 days; Reason: Recheck today's complaints, Continuance of care, Re-evaluation by your physician. Signatures: Dispatcher [employer] EDKaren Lopez, SIDRA-C GUEST SERVICE TEAM LEADER-Csnw Nessa Rivas, RN RN tw2 Hudson Diallo RN RN rv Corrections: (The following items were deleted from the chart) 08:52 08:26 05/04/2020 08:26 Discharged to Home. Impression: Acute upper respiratory tw2 infection, unspecified. Condition is Stable. Forms are Medication Reconciliation Form, Thank You Letter, Antibiotic Education, Prescription Opioid Use. Follow up: Emergency Department; When: As needed; Reason: Worsening of condition. Follow up: Private Physician; When: 2 - 3 days; Reason: Recheck today's complaints, Continuance of care, Re-evaluation by your physician. snw
[2020-05-04] MEDS ORDERED: AZITHROMYCIN 250 MG TAB ONE (08:37)
[2020-05-04 08:57] LABS: Urine Bacteria <20 /HPF (<20); Urine Culture Reflex Order NOT NEEDED; Urine RBC <5 /HPF (NONE SEEN)
[2020-05-07 07:12] VITALS: TEMP 98.3
[2020-05-07 07:16] VITALS: BP 151/92; O2SAT 99
== END 2020-05-04 08:52 | disposition home or self-care (01) ==
LOC: ER 05:50
DX: J06.9 Acute upper respiratory infection, unspecified (principal); Z20.828 Contact with and (suspected) exposure to other viral communicable diseases; I10 Essential (primary) hypertension
CPT/HCPCS: 87070; 87088; 87086; 87081; 81015; 87804 ×2; 71045; 99284; U0002

== ENCOUNTER 2020-07-28 10:10 | Observation (INO) | payer OTHER ==
[2020-07-28] MEDS ORDERED: MORPHINE 4 MG/ML SYR ONE (11:15)
[2020-07-28] MEDS ORDERED: ONDANSETRON 4 MG/2 ML VIAL ONE (11:15)
[2020-07-28] MEDS ORDERED: NA CHLORIDE 0.9% 500 ML ONE (11:15)
--- OUTSIDE RECORDS SUMMARY | 2020-07-28 11:17 | XMS REPORT | Continuity of Care Document ---
:1950 Author Organization [facility] t Address [address] [place] [address] [address]. [address] [place] [address] Care Team Providers Name Role Phone Unavailable Unavailable Unavailable Problems This patient has no known problems. Allergies, Adverse Reactions, Alerts This patient has no known allergies or adverse reactions. Medications This patient has no known medications. Procedures This patient has no known procedures. Results This patient has no known results.
[2020-07-28 11:18] LABS: Absolute Lymphocytes (CBC) 1.6 K/uL (0.7-4.9); Basophils % 0.5 % (0-1.3); Lymphocytes % 15.6 % (15.3-44.8); MPV 9.9 fL (7.6-11.3)
[2020-07-28 11:29] LABS: BUN Blood Urea Nitrogen 12 mg/dL (7-18); Bicarbonate 28 mmol/L (21-32); Glucose Level 96 mg/dL (74-106); Sodium Level 137 mmol/L (136-145)
[2020-07-28] MEDS ORDERED: FENTANYL CITR 100 MCG/2 ML ONE (11:51)
--- NOTE | 2020-07-28 12:22 | RAD REPORT ---
EXAM DESCRIPTION: CT - Abdomen Pelvis W Contrast - 07/28/2020 12:01 pm CLINICAL HISTORY: ABD PAIN COMPARISON: CT ABD PELVIS W CONTRAST dated 08/03/2015 TECHNIQUE: Biphasic, helical CT imaging of the abdomen and pelvis was performed following 100 ml non -ionic IV contrast. No oral contrast given. All CT scans are performed using dose optimization technique as appropriate and may include automated exposure control or mA/KV adjustment according to patient size. FINDINGS: No suspicious findings in the lung bases. Liver has a mild diffuse fatty infiltration pattern with no suspicious liver lesion. A 2.4 centimeter thin-walled homogeneous cyst in the midline left lobe liver has not changed. No portal vein abnormal ity. Spleen and pancreas show no suspicious findings. Gallbladder and biliary tree are also without s uspicious finding. Symmetric renal function is seen with no hydronephrosis or suspicious renal mass. No pyelonephritis o r acute parenchymal process. No bladder abnormalities. No adrenal abnormalities. No gastric dilatation or gastric wall thickening. No dilated small bowel loop. Appendix is normal. Mo derate stool volume fills the colon from cecum to splenic flexure. Patient has prominent left-sided d iverticulosis. At the descending sigmoid junction there is a 4 centimeter long segment of irregular c ircumferential wall thickening. There is 1 especially enlarged diverticulum that has prominent wall t hickening. There is edema and stranding in the adjacent fat. No extraluminal air or extravasation of bowel content identifiable. No free air or pneumatosis. No abnormal free fluid. No hernia, mass or bulky lymphadenopathy. No suspicious bony findings. L4-5 degenerative disc disease present. IMPRESSION: Acute diverticulitis at the descending - sigmoid colon junction. Malignant etiology is n ot suspected. No free air, extravasation of bowel content or other surgically emergent finding.
--- NOTE | 2020-07-28 12:36 | ER ---
Nurse's Notes [facility] Name: Mary Ortega Age: 70 yrs Sex: Female : 1950 Arrival Date: 07/28/2020 Time: 10:12 Bed 16 Private MD: Noni Manuel Diagnosis: Diverticulitis of intestine, part unspecified, without perforation or abscess without bleeding Presentation: 07/28 10:44 Chief complaint: Patient states: LLQ pain X 3-4 days, denies n/v/d , denies iw fever/chills. Coronavirus screen: At this time, the client does not indicate any symptoms associated with coronavirus-19. Ebola Screen: Patient negative for fever greater than or equal to 101.5 degrees Fahrenheit, and additional compatible Ebola Virus Disease symptoms Patient denies exposure to infectious person. Patient denies travel to an Ebola-affected area in the 21 days before illness onset. No symptoms or risks identified at this time. Initial Sepsis Screen: Does the patient meet any 2 criteria? No. Patient's initial sepsis screen is negative. Does the patient have a suspected source of infection? No. Patient's initial sepsis screen is negative. Risk Assessment: Do you want to hurt yourself or someone else? Patient reports no desire to harm self or others. Onset of symptoms was July 24, 2020. 10:44 Method Of Arrival: Wheelchair iw 10:44 Acuity: MYKE 3 iw Historical: - Allergies: 10:46 No Known Allergies; iw - Home Meds: 15:12 alendronate 70 mg/75 mL oral soln 75 mL once wkly [Active]; lisinopril 30 mg oral tab 1 tw2 tab once daily [Active]; hydrocodone-acetaminophen 7.5-325 mg Oral tab 1 tab every 4-6 hours [Active]; - PMHx: 10:46 Back pain; Chronic back and neck pain; Hyperlipidemia; Hypertension; iw - PSHx: 10:46 Hysterectomy; iw - Immunization history:: Adult Immunizations. - Social history:: Smoking status: Patient denies any tobacco usage or history of. Screenin:26 Abuse screen: Denies threats or abuse. Nutritional screening: No deficits noted. tw2 Tuberculosis screening: No symptoms or risk factors identified. Fall Risk None identified. Assessment: 10:42 General: Appears in no apparent distress. slender, well groomed, Behavior is calm, tw2 cooperative, appropriate for age. Pain: Complains of pain in left lower quadrant. Neuro: Level of Consciousness is awake, alert, obeys commands, Oriented to person, place, time, situation. Cardiovascular: Heart tones S1 S2 Patient's skin is warm and dry. Respiratory: Airway is patent Respiratory effort is even, unlabored, Respiratory pattern is regular, symmetrical, Breath sounds are clear bilaterally. GI: Abdomen is round non-distended, Bowel sounds present X 4 quads. Reports lower abdominal pain, Patient currently denies diarrhea, nausea, vomiting. : No signs and/or symptoms were reported regarding the genitourinary system. EENT: No signs and/or symptoms were reported regarding the EENT system. Derm: No signs and/or symptoms reported regarding the dermatologic system. Musculoskeletal: Range of motion: intact in all extremities. 11:35 Reassessment: No changes from previously documented assessment. Patient and/or family tw2 updated on plan of care and expected duration. Pain level reassessed. Patient is alert, oriented x 3, equal unlabored respirations, skin warm/dry/pink. GI: Reports lower abdominal pain, bloating, "and i feel gassy", provider notified. 12:21 Reassessment: No changes from previously documented assessment. Patient and/or family tw2 updated on plan of care and expected duration. Pain level reassessed. "pain is a little better but not much, maybe a 7", provider notified,medicated as ordered. 12:21 Reassessment: Patient is alert, oriented x 3, equal unlabored respirations, skin tw2 warm/dry/pink. 13:30 Reassessment: Patient appears in no apparent distress at this time. No changes from tw2 previously documented assessment. Patient and/or family updated on plan of care and expected duration. Pain level reassessed. Patient is alert, oriented x 3, equal unlabored respirations, skin warm/dry/pink. 13:34 Reassessment: pts iv pump was beeping, once i went into the exam room to check the tw2 noise, pt was found eating a hamburger with doritos with spouse, pt educated as of the need for bowel rest and not eating at this time, provider notified. 14:30 Reassessment: Patient appears in no apparent distress at this time. No changes from tw2 previously documented assessment. Patient and/or family updated on plan of care and expected duration. Pain level reassessed. Patient is alert, oriented x 3, equal unlabored respirations, skin warm/dry/pink. 15:18 Reassessment: Patient appears in no apparent distress at this time. No changes from tw2 previously documented assessment. Patient and/or family updated on plan of care and expected duration. Pain level reassessed. Patient is alert, oriented x 3, equal unlabored respirations, skin warm/dry/pink. Vital Signs: 10:42 Temp 98.1(O); tw2 10:42 BP 125 / 82; Pulse 104; Resp 18; Pulse Ox 99% ; Pain 9/10; tw2 10:44 BP 132 / 93; Pulse 106; Resp 20; Pulse Ox 99% on R/A; Weight 68.04 kg; Height 5 ft. 5 iw in. (165.10 cm); 12:21 BP 135 / 80; Pulse 87; Resp 17; Pulse Ox 100% on R/A; Pain 7/10; tw2 13:29 Weight 68.04 kg (R); Height 5 ft. 5 in. (165.10 cm) (R); tw2 13:31 BP 144 / 93; Pulse 100; Resp 17; Pulse Ox 100% on R/A; tw2 14:30 BP 130 / 94; Pulse 89; Resp 17; Pulse Ox 97% on R/A; tw2 15:18 BP 124 / 76; Pulse 94; Resp 17; Pulse Ox 98% on R/A; tw2 13:29 Body Mass Index 24.96 (68.04 kg, 165.10 cm) tw2 ED Course: 10:12 Patient arrived in ED. ag5 10:12 Noni Manuel MD is Private Physician. ag5 10:37 [facility]elle Lebron [facility]C [facility] kb 10:37 Santhosh Patiño MD is Attending Physician. kb 10:42 Placed in gown. Bed in low position. Call light in reach. Pulse ox on. NIBP on. Warm tw2 blanket given. 10:44 Nessa Rivas, SU is Primary Nurse. tw2 10:45 Triage completed. iw 10:46 Arm band placed on. iw 10:55 Initial lab(s) drawn, by me, sent to lab. kj1 10:55 Inserted saline lock: 20 gauge in right antecubital area, using aseptic technique. kj1 Blood collected. 12:[address] via stretcher. jj2 12:01 CT completed[address] jj2 12:02 CT Abd/Pelvis - IV Contrast Only In Process Unspecified. EDMS 12:35 Elton Nix MD is Hospitalizing Provider. kb 15:18 No provider procedures requiring assistance completed. Patient admitted, IV remains in tw2 place. Administered Medications: 11:10 Drug: NS 0.9% 500 ml Route: IV; Rate: bolus; Site: right antecubital; ca1 11:41 Follow up: Response: No adverse reaction; IV Status: Completed infusion; IV Intake: tw2 500ml 11:11 Drug: Zofran (Ondansetron) 4 mg Route: IVP; Site: right antecubital; ca1 11:42 Follow up: Response: No adverse reaction; Nausea is decreased tw2 11:15 Drug: morphine 4 mg {Note: rass 0.} Route: IVP; Site: right antecubital; ca1 11:34 Follow up: Response: No adverse reaction; Pain is unchanged, physician notified; RASS: tw2 Alert and Calm (0) 11:41 Drug: fentaNYL (PF) 25 mcg {Note: RASS 0.} Route: IVP; Site: left antecubital; tw2 12:24 Follow up: Response: No adverse reaction; Pain is decreased; RASS: Alert and Calm (0) tw2 12:24 Drug: fentaNYL (PF) 25 mcg {Note: RASS 0.} Route: IVP; Site: left antecubital; tw2 13:20 Follow up: Response: No adverse reaction; Pain is decreased; RASS: Alert and Calm (0) tw2 12:25 CANCELLED (Duplicate Order): Cipro 500 mg PO once kb 12:25 CANCELLED (Duplicate Order): Flagyl 500 mg PO once kb 12:33 Drug: Flagyl 500 mg Volume: 100 ml; Route: IVPB; Rate: 200 ml/hr; Infused Over: 30 tw2 mins; Site: left antecubital; 13:12 Follow up: Response: No adverse reaction; IV Status: Completed infusion; IV Intake: tw2 200ml 13:12 Drug: Cipro 400 mg Volume: 200 ml; Route: IVPB; Infused Over: 60 mins; Site: left tw2 antecubital; 14:32 Follow up: Response: No adverse reaction; IV Status: Completed infusion; IV Intake: tw2 200ml Intake: 11:41 IV: 500ml; Total: 500ml. tw2 13:12 IV: 200ml; Total: 700ml. tw2 14:32 IV: 200ml; Total: 900ml. tw2 Outcome: 12:35 Decision to Hospitalize by Provider. kb 15:26 Admitted to Med/surg accompanied by nurse, via wheelchair, room 229, with chart, Other tw2 SU Daniel escorting pt via w/c to room 229 Report called to SU Mcfarland 15:26 Condition: stable 15:26 Instructed on the need for admit. 15:34 Patient left the ED. tw2 Signatures: Dispatcher [employer] EDMS Michaelle Lebron, MOVIE EDITOR-C MOVIE EDITOR-Ckb [place] jj2 Barbara Perez RN RN iw Nessa Rivas RN RN tw2 Guillermina Ortega RN RN ca1 Sophia Vera ag5 Ernestina Lebron kj1 Corrections: (The following items were deleted from the chart) 11:35 10:42 GI: Abdomen is flat, Bowel sounds present X 4 quads. Reports lower abdominal tw2 pain, Patient currently denies diarrhea, nausea, vomiting, tw2 13:31 11:35 Reassessment: No changes from previously documented assessment. Patient and/or tw2 family updated on plan of care and expected duration. Pain level reassessed. tw2 15:34 15:26 Admitted to Med/surg accompanied by tech, via wheelchair, room 229, with chart, tw2 Report called to SU Mcfarland tw2
--- NOTE | 2020-07-28 12:36 | EDPHYS ---
Physician Documentation [facility] Name: Mary Ortega Age: 70 yrs Sex: Female : 1950 Arrival Date: 07/28/2020 Time: 10:12 Bed 16 Private MD: Noni Manuel ED Physician Santhosh Patiño HPI: 07/28 11:04 This 70 yrs old Female presents to ER via Wheelchair with complaints of Hip kb Pain. 11:04 The patient presents with abdominal pain in the left lower quadrant. Onset: The kb symptoms/episode began/occurred 3 day(s) ago. The symptoms do not radiate. Associated signs and symptoms: none. The symptoms are described as constant. Modifying factors: The symptoms are alleviated by nothing, the symptoms are aggravated by movement, pressure. Severity of pain: At its worst the pain was moderate in the emergency department the pain is unchanged. The patient has experienced similar episodes in the past, a few times. The patient has not recently seen a physician. Historical: - Allergies: 10:46 No Known Allergies; iw - Home Meds: 15:12 alendronate 70 mg/75 mL oral soln 75 mL once wkly [Active]; lisinopril 30 mg oral tab 1 tw2 tab once daily [Active]; hydrocodone-acetaminophen 7.5-325 mg Oral tab 1 tab every 4-6 hours [Active]; - PMHx: 10:46 Back pain; Chronic back and neck pain; Hyperlipidemia; Hypertension; iw - PSHx: 10:46 Hysterectomy; iw - Immunization history:: Adult Immunizations. - Social history:: Smoking status: Patient denies any tobacco usage or history of. ROS: 11:03 Constitutional: Negative for fever, chills, and weight loss, Cardiovascular: Negative kb for chest pain, palpitations, and edema, Respiratory: Negative for shortness of breath, cough, wheezing, and pleuritic chest pain, Back: Negative for injury and pain, MS/Extremity: Negative for injury and deformity, Skin: Negative for injury, rash, and discoloration, Neuro: Negative for headache, weakness, numbness, tingling, and seizure. 11:03 Abdomen/GI: Positive for abdominal pain, Negative for nausea, vomiting, and diarrhea, constipation. Exam: 11:03 Constitutional: This is a well developed, well nourished patient who is awake, alert, kb and in no acute distress. Head/Face: Normocephalic, atraumatic. Chest/axilla: Normal chest wall appearance and motion. Nontender with no deformity. No lesions are appreciated. Cardiovascular: Regular rate and rhythm with a normal S1 and S2. No gallops, murmurs, or rubs. Normal PMI, no JVD. No pulse deficits. Respiratory: Lungs have equal breath sounds bilaterally, clear to auscultation and percussion. No rales, rhonchi or wheezes noted. No increased work of breathing, no retractions or nasal flaring. Back: No spinal tenderness. No costovertebral tenderness. Full range of motion. Skin: Warm, dry with normal turgor. Normal color with no rashes, no lesions, and no evidence of cellulitis. MS/ Extremity: Pulses equal, no cyanosis. Neurovascular intact. Full, normal range of motion. Neuro: Awake and alert, GCS 15, oriented to person, place, time, and situation. Cranial nerves II-XII grossly intact. Motor strength 5/5 in all extremities. Sensory grossly intact. Cerebellar exam normal. Normal gait. 11:03 Abdomen/GI: Bowel sounds: normal, in all quadrants, Palpation: soft, in all quadrants, moderate abdominal tenderness, in the left lower quadrant. Vital Signs: 10:42 Temp 98.1(O); tw2 10:42 BP 125 / 82; Pulse 104; Resp 18; Pulse Ox 99% ; Pain 9/10; tw2 10:44 BP 132 / 93; Pulse 106; Resp 20; Pulse Ox 99% on R/A; Weight 68.04 kg; Height 5 ft. 5 iw in. (165.10 cm); 12:21 BP 135 / 80; Pulse 87; Resp 17; Pulse Ox 100% on R/A; Pain 7/10; tw2 13:29 Weight 68.04 kg (R); Height 5 ft. 5 in. (165.10 cm) (R); tw2 13:31 BP 144 / 93; Pulse 100; Resp 17; Pulse Ox 100% on R/A; tw2 14:30 BP 130 / 94; Pulse 89; Resp 17; Pulse Ox 97% on R/A; tw2 15:18 BP 124 / 76; Pulse 94; Resp 17; Pulse Ox 98% on R/A; tw2 13:29 Body Mass Index 24.96 (68.04 kg, 165.10 cm) tw2 MDM: 10:46 Patient medically screened. kb 11:03 Data reviewed: vital signs, nurses notes. Data interpreted: Pulse oximetry: on room air kb is 99 %. Interpretation: normal. 12:30 Counseling: I had a detailed discussion with the patient and/or guardian regarding: the kb historical points, exam findings, and any diagnostic results supporting the discharge/admit diagnosis, lab results, radiology results, the need for further work-up and treatment in the hospital. 12:34 Physician consultation: Elton Nix MD was contacted at 12:35, regarding admission, kb to the medical/surgical unit. patient's condition, and will see patient in ED, shortly. 07/28 10:47 Order name: Basic Metabolic Panel; Complete Time: 11:36 kb 07/28 10:47 Order name: CBC with Diff; Complete Time: 11:36 kb 07/28 10:47 Order name: CT Abd/Pelvis - IV Contrast Only; Complete Time: 12:23 kb 07/28 10:47 Order name: IV Saline Lock; Complete Time: 11:15 kb 07/28 10:47 Order name: Labs collected and sent; Complete Time: 11:15 kb Administered Medications: 11:10 Drug: NS 0.9% 500 ml Route: IV; Rate: bolus; Site: right antecubital; ca1 11:41 Follow up: Response: No adverse reaction; IV Status: Completed infusion; IV Intake: tw2 500ml 11:11 Drug: Zofran (Ondansetron) 4 mg Route: IVP; Site: right antecubital; ca1 11:42 Follow up: Response: No adverse reaction; Nausea is decreased tw2 11:15 Drug: morphine 4 mg {Note: rass 0.} Route: IVP; Site: right antecubital; ca1 11:34 Follow up: Response: No adverse reaction; Pain is unchanged, physician notified; RASS: tw2 Alert and Calm (0) 11:41 Drug: fentaNYL (PF) 25 mcg {Note: RASS 0.} Route: IVP; Site: left antecubital; tw2 12:24 Follow up: Response: No adverse reaction; Pain is decreased; RASS: Alert and Calm (0) tw2 12:24 Drug: fentaNYL (PF) 25 mcg {Note: RASS 0.} Route: IVP; Site: left antecubital; tw2 13:20 Follow up: Response: No adverse reaction; Pain is decreased; RASS: Alert and Calm (0) tw2 12:25 CANCELLED (Duplicate Order): Cipro 500 mg PO once kb 12:25 CANCELLED (Duplicate Order): Flagyl 500 mg PO once kb 12:33 Drug: Flagyl 500 mg Volume: 100 ml; Route: IVPB; Rate: 200 ml/hr; Infused Over: 30 tw2 mins; Site: left antecubital; 13:12 Follow up: Response: No adverse reaction; IV Status: Completed infusion; IV Intake: tw2 200ml 13:12 Drug: Cipro 400 mg Volume: 200 ml; Route: IVPB; Infused Over: 60 mins; Site: left tw2 antecubital; 14:32 Follow up: Response: No adverse reaction; IV Status: Completed infusion; IV Intake: tw2 200ml Disposition: 07/28/20 12:35 Hospitalization ordered by Elton Nix for Observation. Preliminary diagnosis is Diverticulitis of intestine, part unspecified, without perforation or abscess without bleeding. - Bed requested for Telemetry/MedSurg (observation). - Status is Observation. tw2 - Condition is Stable. - Problem is new. - Symptoms are unchanged. Addendum: 08/02/2020 21:00 Co-signature as Attending Physician, Santhosh Patiño MD I agree with the assessment and p s1 plan of care. Did not see or evaluate patient. Signature for administrative purposes. . Signatures: Dispatcher [employer] [facility] Michaelle Lebron, ETHYLBENZENE CONVERTER HELPER-C ETHYLBENZENE CONVERTER HELPER-Jennifer Reyes, SU BLUE dw Barbara Perez, SU BLUE iw Nessa Rivas RN RN tw2 Santhosh Patiño MD MD ps1 Guillermina Ortega RN RN ca1 Corrections: (The following items were deleted from the chart) 07/28 12: 12:24 Cipro 500 mg PO once ordered. kb kb 12: 12:24 Flagyl 500 mg PO once ordered. kb kb 15:13 12:35 Hospitalization Ordered by Elton Nix MD for Observation. Preliminary dw diagnosis is Diverticulitis of intestine, part unspecified, without perforation or abscess without bleeding. Bed requested for Telemetry/MedSurg (observation). Status is Observation. Condition is Stable. Problem is new. Symptoms are unchanged. kb 15:34 15:13 07/28/2020 12:35 Hospitalization Ordered by Elton Nix MD for Observation. tw2 Preliminary diagnosis is Diverticulitis of intestine, part unspecified, without perforation or abscess without bleeding. Bed requested for Telemetry/MedSurg (observation). Status is Observation. Condition is Stable. Problem is new. Symptoms are unchanged. dw
[2020-07-28] MEDS ORDERED: METRONIDAZOLE 500mg IVPB 500 MG/100 ML BAG IV ONE (12:43)
[2020-07-28] MEDS ORDERED: CIPROFLOXACIN 400mg IV 400 MG/200 ML BAG IV ONE (12:43)
--- NOTE | 2020-07-28 13:18 | P.HP ---
Certification for Inpatient Patient admitted to: Observation With expected LOS: <2 Midnights Practitioner: I am a practitioner with admitting privileges, knowledge of patient current condition, hospital course, and medical plan of care. Services: Services provided to patient in accordance with Admission requirements found in Title 42 Section 412.3 of the Code of Federal Regulations Patient History Date of Service: 07/28/20 Reason for admission: Acute sigmoid diverticulitis History of Present Illness: 70-year-old female, PMH: HTN, HLD, chronic back pain who presents to ED due to 1 week of worsening left lower abdominal pain associated with decreased oral intake. She states she was otherwise in her usual state of health up until 1 week ago. She denies any fevers/chills at home. She reported some nausea, no vomiting. She last had a bowel movement yesterday reports it was small hard pebble like stool. In the ED she underwent CT abdomen/pelvis which revealed diverticulitis. She did not have a leukocytosis, BMP otherwise unremarkable, and she did not appear septic. She was started on Cipro and Flagyl. She was given multiple doses of IV pain medication with no relief in the ED, so I was consulted for admission. Allergies No Known Allergies Allergy (Unverified 09/25/14 10:46) Home Medications: Alendronate [Fosamax*] 70 mg PO EVERY 7TH DAY 07/28/20 Hydrocodone/Acetaminophen [Niotaze 7.5-325 Tablet] 1 tab PO PRN PRN 07/28/20 Lisinopril [Zestril] 1 tab PO DAILY 07/28/20 - Past Medical/Surgical History -: HTN -: HLD -: Hysterectomy - Family History Family History: Reviewed- Non-Contributory - Social History Smoking Status: Never smoker Alcohol use: No Place of Residence: Home Review of Systems 10-point ROS is otherwise unremarkable Physical Examination - Physical Exam General: Alert, Oriented x3, Mild distress (Uncomfortable) HEENT: Sclerae nonicteric Respiratory: Clear to auscultation bilaterally, Normal air movement Cardiovascular: No edema, Regular rate/rhythm Gastrointestinal: Soft and benign, Tenderness (LLQ, no rebound) Musculoskeletal: No tenderness Integumentary: No rashes Neurological: Normal speech, Normal affect - Studies Laboratory Data (last 24 hrs) 07/28/20 10:58: WBC 10.2, Hgb 13.4, Hct 39.0, Plt Count 220 07/28/20 10:58: Sodium 137, Potassium 4.0, BUN 12, Creatinine 0.62, Glucose 96 Assessment and Plan - Advance Directives Does patient have a Living Will: No Does patient have a Durable POA for Healthcare: No Physician Review Additional Text: Acute sigmoid diverticulitis Hypertension Chronic back pain Hyperlipidemia -continue with IV ciprofloxacin and Flagyl for diverticulitis -morphine for pain control -continue home pain medication, Niotaze 5 mg b.i.d.; PDMP reviewed, no red flags -clear liquid diet, IV fluids tonight, likely advance diet tomorrow if pain improves -borderline low BP in the ED, restart home antihypertensive medications as appropriate -SCDs Dispo: Anticipate discharge home in the next 24-48hrs Time Spent Managing Pts Care (In Minutes): 55
[2020-07-28 15:16] VITALS: BMI 25.0
[2020-07-28] MEDS ORDERED: ONDANSETRON 4 MG/2 ML VIAL IV PRN (15:42)
[2020-07-28] MEDS ORDERED: ACETAMINOPHEN 500 MG TAB PO PRN (15:42)
[2020-07-28] MEDS ORDERED: PNEUMOCOCCAL VACCINE 0.5 ML IMVAC ONE (16:00)
[2020-07-28] MEDS ORDERED: NA CHLORIDE 0.9% 1,000 ML ONE (16:01)
[2020-07-28] MEDS: NA CHLORIDE 0.9% 1,000 ML IV SCH (16:43)
[2020-07-28] MEDS: METRONIDAZOLE 500mg IVPB 500 MG/100 ML BAG IV SCH (17:00)
[2020-07-28] MEDS ORDERED: HYDROCODONE/APAP 5/325 MG TAB PO PRN (18:35)
[2020-07-28] MEDS: MORPHINE 4 MG/ML SYR IV PRN (18:35)
[2020-07-28] MEDS: CIPROFLOXACIN 400mg IV 400 MG/200 ML BAG IV SCH (20:50)
[2020-07-29] MEDS: NA CHLORIDE 0.9% 1,000 ML IV SCH
[2020-07-29 06:13] LABS: Absolute Lymphocytes (CBC) 1.6 K/uL (0.7-4.9); Basophils % 0.4 % (0-1.3); Hematocrit 32.5 % (36.0-45.0); Lymphocytes % 14.8 % (15.3-44.8); MPV 9.5 fL (7.6-11.3)
[2020-07-29 06:43] LABS: ALT/SGPT 18 U/L (12-78); AST/SGOT 12 U/L (15-37); Alkaline Phosphatase 38 U/L (45-117); BUN Blood Urea Nitrogen 7 mg/dL (7-18); Bicarbonate 26 mmol/L (21-32); Bilirubin Total 0.4 mg/dL (0.2-1.0); Glucose Level 121 mg/dL (74-106); Potassium 3.6 mmol/L (3.5-5.1); Protein, Total 6.4 g/dL (6.4-8.2); Sodium Level 137 mmol/L (136-145)
[2020-07-29] MEDS: CIPROFLOXACIN 400mg IV 400 MG/200 ML BAG IV SCH (08:37)
[2020-07-29] MEDS: METRONIDAZOLE 500mg IVPB 500 MG/100 ML BAG IV SCH ×2 (08:54)
[2020-07-29] MEDS: MORPHINE 4 MG/ML SYR IV PRN (09:00)
[2020-07-29] MEDS ORDERED: POTASSIUM CL SA 10 MEQ TAB PO ONE (09:00)
[2020-07-29] MEDS ORDERED: DOCUSATE NA 100 MG CAP PO SCH (10:00)
[2020-07-29 12:27] VITALS: O2SAT 96
[2020-07-29] MEDS ORDERED: ONDANSETRON 4 MG (ODT) TAB ONE (14:31)
[2020-07-29 14:46] VITALS: BP 142/85; TEMP 98.4
--- NOTE | 2020-07-29 18:10 | P.DS ---
Admission Date: 07/28/20 Discharge Date: 07/29/20 Disposition: ROUTINE DISCHARGE Discharge Condition: GOOD Reason for Admission: Acute sigmoid diverticulitis Procedures: CT abdomen/pelvis (07/28): Acute diverticulitis at the descending - sigmoid colon junction. Malignant etiology is not suspected. No free air, extravasation of bowel content or other surgically emergent finding. Problem List: Acute sigmoid diverticulitis Hypertension Chronic back pain Hyperlipidemia Brief History of Present Illness: 70-year-old female, PMH: HTN, HLD, chronic back pain who presents to ED due to 1 week of worsening left lower abdominal pain associated with decreased oral intake. She states she was otherwise in her usual state of health up until 1 week ago. She denies any fevers/chills at home. In the ED she underwent CT abdomen/pelvis which revealed diverticulitis. She did not have a leukocytosis, BMP otherwise unremarkable, and she did not appear septic. She was started on Cipro and Flagyl. Hospital Course: She improved with cipro & flagyl, her diet was able to be advanced to soft diet. Her pain improved and she was discharged home to complete 2 weeks of cipro and flagyl. She missed her pain management appointment today and rescheduled for next week, she was given a few days of Tylenol #3 and some zofran. She is to f/u with her PCP within 1 week. Vital Signs/Physical Exam: Temp Pulse Resp BP Pulse Ox 98.4 F 90 18 142/85 H 99 07/29/20 12:00 07/29/20 12:00 07/29/20 12:00 07/29/20 12:00 07/29/20 12:00 General: Alert, In no apparent distress HEENT: Sclerae nonicteric Respiratory: Clear to auscultation bilaterally Cardiovascular: No edema, Regular rate/rhythm Gastrointestinal: Soft and benign, Non-distended, No tenderness Musculoskeletal: No tenderness Integumentary: No rashes Neurological: Normal speech, Normal affect Laboratory Data at Discharge: WBC 11.0 K/uL (4.3-10.9) H 07/29/20 05:56 Hgb 11.3 g/dL (12.0-15.0) L 07/29/20 05:56 Hct 32.5 % (36.0-45.0) L D 07/29/20 05:56 Plt Count 194 K/uL (152-406) 07/29/20 05:56 Sodium 137 mmol/L (136-145) 07/29/20 05:56 Potassium 3.6 mmol/L (3.5-5.1) 07/29/20 05:56 BUN 7 mg/dL (7-18) 07/29/20 05:56 Creatinine 0.54 mg/dL (0.55-1.3) L 07/29/20 05:56 Glucose 121 mg/dL (74-106) H 07/29/20 05:56 Magnesium 2.0 mg/dL (1.8-2.4) 07/29/20 05:56 Total Bilirubin 0.4 mg/dL (0.2-1.0) 07/29/20 05:56 AST 12 U/L (15-37) L 07/29/20 05:56 ALT 18 U/L (12-78) 07/29/20 05:56 Alkaline Phosphatase 38 U/L (45-117) L 07/29/20 05:56 Home Medications: Alendronate [Fosamax*] 70 mg PO EVERY 7TH DAY 07/28/20 Hydrocodone/Acetaminophen [[place] 7.5-325 Tablet] 1 tab PO PRN PRN 07/28/20 Lisinopril [Zestril] 1 tab PO DAILY 07/28/20 Ciprofloxacin HCl [Cipro 500 MG Tablet] 500 mg PO BID 10 Days #20 tab 07/29/20 Codeine/APAP [Tylenol W/Codeine #3 tab] 1 tab PO Q8HP PRN 5 Days #15 tab 07/29/20 Docusate [Colace Cap*] 100 mg PO BID 10 Days #20 cap 07/29/20 Ondansetron [Zofran] 4 mg PO Q6H PRN #10 tab 07/29/20 metroNIDAZOLE [Flagyl] 500 mg PO Q8H 10 Days #30 tablet 07/29/20 New Medications: Codeine/APAP [Tylenol W/Codeine #3 tab] 1 tab PO Q8HP PRN 5 Days #15 tab PRN Reason: Pain Ciprofloxacin HCl [Cipro 500 MG Tablet] 500 mg PO BID 10 Days #20 tab Docusate [Colace Cap*] 100 mg PO BID 10 Days #20 cap metroNIDAZOLE [Flagyl] 500 mg PO Q8H 10 Days #30 tablet Ondansetron [Zofran] 4 mg PO Q6H PRN #10 tab PRN Reason: Nausea / Vomiting Patient Discharge Instructions: follow up with PCP within 1 week. follow up with gastroenterology in the next 2-3 months, consider colonoscopy. Diet: [place] Activity: Ad olivier Followup: Noni Manuel, DO [Primary Care Provider] - Time spent managing pt's care (in minutes): 35
== END 2020-07-29 14:25 | disposition home or self-care (01) ==
LOC: ER 10:10 → ERHOLD 13:14 → 2ND 15:26
PROVIDERS: ADMIT Hospitalist; ATTEND Hospitalist
DX: K57.32 Diverticulitis of large intestine without perforation or abscess without bleeding (principal); I10 Essential (primary) hypertension; E78.5 Hyperlipidemia, unspecified; M54.9 Dorsalgia, unspecified; G89.29 Other chronic pain; Z20.828 Contact with and (suspected) exposure to other viral communicable diseases
CPT/HCPCS: 85025 ×2; 80048; 36415; 83735; 80053; 74177; 94760 ×3; 99285; U0002; Q9967; J3010; J7040; J7030 ×2; J2405; J0744 ×3; G0378 ×3

== ENCOUNTER 2021-04-13 16:16 | Emergency (ER) | payer OTHER ==
--- OUTSIDE RECORDS SUMMARY | 2021-04-13 16:17 | XMS REPORT | Continuity of Care Document ---
:1950 Author Organization [facility] t Address [address] [place] [address] Dr. Alex. [address] [place] [address] Care Team Providers Name Role Phone Doctor Unassigned, Name Attending Clinician Unavailable Problems This patient has no known problems. Allergies, Adverse Reactions, Alerts This patient has no known allergies or adverse reactions. Medications This patient has no known medications. Procedures This patient has no known procedures. Encounters Start End Encounter Admission Attending Care Care Encounter Source Date/Time Date/Time Type Type Clinicians Facility Department ID 2020-09-29 2020-09-29 Orders Doctor FREEMAN [id number] 00:00:00 00:00:00 Only UnassignedYOMI [id number] [place] [facility] [id number] Results This patient has no known results.
== END 2021-04-13 17:11 | disposition left against medical advice (07) ==
LOC: ER 16:16
DX: Z02.9 Encounter for administrative examinations, unspecified (principal)

== ENCOUNTER 2021-06-14 08:57 | Emergency (ER) | payer OTHER ==
[2021-06-14] MEDS ORDERED: MORPHINE 4 MG/ML SYR ONE (09:50)
[2021-06-14] MEDS ORDERED: ONDANSETRON 4 MG (ODT) TAB ONE (09:51)
--- NOTE | 2021-06-14 11:00 | ER ---
Nurse's Notes [facility] Name: Mary Ortega Age: 71 yrs Sex: Female : 1950 Arrival Date: 06/14/2021 Time: 08:59 Bed 23 Private MD: Kirk Tran Diagnosis: Alveolitis of jaws-dry socket Presentation: 06/14 09:04 Chief complaint: Patient states: had a tooth pulled out a few days ago and reports aa5 pain. Pt reports she is taking penicillin. Coronavirus screen: At this time, the client does not indicate any symptoms associated with coronavirus-19. Ebola Screen: Patient negative for fever greater than or equal to 101.5 degrees Fahrenheit, and additional compatible Ebola Virus Disease symptoms. Initial Sepsis Screen: Does the patient meet any 2 criteria? HR > 90 bpm. Does the patient have a suspected source of infection? No. Patient's initial sepsis screen is negative. Risk Assessment: Do you want to hurt yourself or someone else? Patient reports no desire to harm self or others. Onset of symptoms was 2020. 09:04 Method Of Arrival: Ambulatory aa5 09:04 Acuity: MYKE 3 aa5 Triage Assessment: 10:10 General: Appears uncomfortable, Behavior is calm, cooperative, appropriate for age. oh 10:10 Pain: Complains of pain in right jaw. oh Historical: - Allergies: 09:04 No Known Allergies; aa5 - PMHx: 09:03 Back pain; Chronic back and neck pain; Hyperlipidemia; Hypertension; aa5 - Immunization history:: Client reports receiving the 2nd dose of the Covid vaccine. - Social history:: Smoking status: Patient denies any tobacco usage or history of. Screenin:09 Abuse screen: Denies threats or abuse. Nutritional screening: No deficits noted. oh Tuberculosis screening: No symptoms or risk factors identified. Fall Risk None identified. Assessment: 10:06 EENT: Reports right side facial/ jaw pain, tenderness when swallowing. per pt she oh recently had tooth pulled, pt on antibiotics but pain as become unbearable today.. Vital Signs: 09:04 BP 133 / 89; Pulse 122; Resp 18 S; Temp 97.3(TE); Pulse Ox 99% on R/A; Weight 68.04 kg aa5 (R); Height 5 ft. 5 in. (165.10 cm) (R); 10:09 BP 121 / 83; Pulse 103; Resp 17; Pulse Ox 96% on R/A; oh 10:48 BP 122 / 84; Pulse 97; Resp 17; Pulse Ox 97% on R/A; oh 09:04 Body Mass Index 24.96 (68.04 kg, 165.10 cm) aa5 ED Course: 08:59 Patient arrived in ED. as 08:59 Kirk Tran MD is Private Physician. as 09:03 Arm band placed on. aa5 09:05 Triage completed. aa5 09:07 Pérez Coreas NP is PHCP. pm1 09:07 Kishor Deluna MD is Attending Physician. pm1 09:23 Giovanni Jackson, SU is Primary Nurse. oh 10:09 Bed in low position. Call light in reach. Adult w/ patient. oh 11:25 No provider procedures requiring assistance completed. Patient did not have IV access oh during this emergency room visit. Administered Medications: 09:30 Drug: morphine 4 mg Route: IM; Site: right deltoid; oh 09:30 Drug: Ondansetron 4 mg Route: PO; oh 11:16 Drug: Clindamycin 600 mg Route: IM; Site: right gluteus; oh 11:17 Drug: [place] (HYDROcodone-acetaminophen) 5 mg-325 mg 1 tabs Route: PO; oh Outcome: 11:00 Discharge ordered by MD. pm1 11:25 Discharged to home ambulatory. oh 11:25 Condition: stable 11:25 Discharge instructions given to patient. 11:26 Patient left the ED. oh Signatures: Halie Lamas Audri, RN RN aa5 Pérez Coreas NP FASHION [employer] pm1 Giovanni Jackson RN RN oh Corrections: (The following items were deleted from the chart) 10:10 10:09 Pulse 103bpm; Pulse Ox 96% RA; oh oh
--- NOTE | 2021-06-14 11:00 | EDPHYS ---
Physician Documentation [facility] Name: Mary Ortega Age: 71 yrs Sex: Female : 1950 Arrival Date: 06/14/2021 Time: 08:59 Bed 23 Private MD: Kirk Tran ED Physician Kishor Deluna HPI: 06/14 09:38 This 71 yrs old Female presents to ER via Ambulatory with complaints of Jaw pm1 Pain - infection. 09:38 The patient presents with pain. The problem is located in the upper right first molar. pm1 Onset: The symptoms/episode began/occurred 4 day(s) ago. Duration: The symptoms are continuous. Modifying factors: The symptoms are alleviated by prescription meds, hydrocodone, the symptoms are aggravated by food. Associated signs and symptoms: Pertinent negatives: fever, inability to eat. Severity of symptoms: in the emergency department the symptoms are actually worse. The patient has not experienced similar symptoms in the past. Dental extraction on . Was given a prescription for amoxicillin by her dentist. Has been taking [place] for her pain. Takes it for chronic pain management of low back pain. Historical: - Allergies: 09:04 No Known Allergies; aa5 - PMHx: 09:03 Back pain; Chronic back and neck pain; Hyperlipidemia; Hypertension; aa5 - Immunization history:: Client reports receiving the 2nd dose of the Covid vaccine. - Social history:: Smoking status: Patient denies any tobacco usage or history of. ROS: 09:38 Constitutional: Negative for fever, chills, and weight loss. pm1 09:38 Cardiovascular: Negative for chest pain, palpitations, and edema, Respiratory: Negative for shortness of breath, cough, wheezing, and pleuritic chest pain, Abdomen/GI: Negative for abdominal pain, nausea, vomiting, diarrhea, and constipation, Skin: Negative for injury, rash, and discoloration, Neuro: Negative for headache, weakness, numbness, tingling, and seizure. 09:38 ENT: Positive for dental pain, Negative for difficulty swallowing, difficulty handling secretions, hoarseness. 09:38 All other systems are negative. Exam: 09:38 Constitutional: This is a well developed, well nourished patient who is awake, alert, pm1 and in no acute distress. Head/Face: Normocephalic, atraumatic. 09:38 Neck: Trachea midline, no thyromegaly or masses palpated, and no cervical lymphadenopathy. Supple, full range of motion without nuchal rigidity, or vertebral point tenderness. No Meningismus. 09:38 Skin: Warm, dry with normal turgor. Normal color with no rashes, no lesions, and no evidence of cellulitis. MS/ Extremity: Pulses equal, no cyanosis. Neurovascular intact. Full, normal range of motion. 09:38 ENT: Exam is negative for acute changes, Mouth: Lips: normal, moist, dry, Gums: on the upper right first molar, Dry socket present. 09:38 Cardiovascular: Exam negative for acute changes, Rate: normal, Rhythm: regular, Pulses: no pulse deficits are appreciated. 09:38 Respiratory: Exam negative for acute changes, respiratory distress, shortness of breath. 09:38 Neuro: Exam negative for acute changes, Orientation: is normal, Mentation: is normal, Motor: is normal, moves all fours. Vital Signs: 09:04 BP 133 / 89; Pulse 122; Resp 18 S; Temp 97.3(TE); Pulse Ox 99% on R/A; Weight 68.04 kg aa5 (R); Height 5 ft. 5 in. (165.10 cm) (R); 10:09 BP 121 / 83; Pulse 103; Resp 17; Pulse Ox 96% on R/A; oh 10:48 BP 122 / 84; Pulse 97; Resp 17; Pulse Ox 97% on R/A; oh 09:04 Body Mass Index 24.96 (68.04 kg, 165.10 cm) aa5 MDM: 09:09 Patient medically screened. pm1 10:55 Data reviewed: vital signs. Data interpreted: Pulse oximetry: on room air is 97 %. pm1 Interpretation: normal. Counseling: I had a detailed discussion with the patient and/or guardian regarding: the historical points, exam findings, and any diagnostic results supporting the discharge/admit diagnosis, the need for outpatient follow up, for definitive care, a dentist, to return to the emergency department if symptoms worsen or persist or if there are any questions or concerns that arise at home. Administered Medications: 09:30 Drug: morphine 4 mg Route: IM; Site: right deltoid; oh 09:30 Drug: Ondansetron 4 mg Route: PO; oh 11:16 Drug: Clindamycin 600 mg Route: IM; Site: right gluteus; oh 11:17 Drug: [place] (HYDROcodone-acetaminophen) 5 mg-325 mg 1 tabs Route: PO; oh Disposition: 06/15 08:47 Co-signature as Attending Physician, Kishor Deluna MD I agree with the assessment and kdr plan of care. Disposition Summary: 06/14/21 11:00 Discharge Ordered Location: Home pm1 Problem: new pm1 Symptoms: have improved pm1 Condition: Stable pm1 Diagnosis - Alveolitis of jaws - dry socket pm1 Followup: pm1 - With: Emergency Department - When: As needed - Reason: Worsening of condition Followup: pm1 - With: Private Physician - When: 2 - 3 days - Reason: Recheck today's complaints, Continuance of care, Re-evaluation by your physician Discharge Instructions: - Discharge Summary Sheet pm1 - Dental Dry Socket pm1 Forms: - Medication Reconciliation Form pm1 - Thank You Letter pm1 - Antibiotic Education pm1 - Prescription Opioid Use pm1 Prescriptions: - Clindamycin HCl 300 mg Oral Capsule - take 1 capsule by ORAL route every 6 hours for 10 days; 40 capsule; Refills: 0, pm1 Product Selection Permitted Signatures: Kishor Deluna MD MD [facility] Rosalind Gutierrez RN RN aa5 Pérez Coreas NP HOT METAL CAR OPERATOR pm1 Giovanni Jackson, SU RN oh
[2021-06-14 11:33] VITALS: TEMP 97.3
[2021-06-14] MEDS ORDERED: CLINDAMYCIN IV 150 MG/ML (4 mL) VIAL ONE (11:35)
[2021-06-14 11:36] VITALS: BP 122/84; O2SAT 97
[2021-06-14] MEDS ORDERED: HYDROCODONE/APAP 5/325 MG TAB ONE (11:36)
== END 2021-06-14 11:26 | disposition home or self-care (01) ==
LOC: ER 08:57
DX: M27.3 Alveolitis of jaws (principal)
CPT/HCPCS: 96372; 99283; S0077

== ENCOUNTER 2021-10-15 12:55 | Emergency (ER) | payer OTHER ==
--- OUTSIDE RECORDS SUMMARY | 2021-10-15 12:58 | XMS REPORT | Continuity of Care Document ---
:1950 Author Organization [facility] [place] [facility] t Address [address] [place] [address] Dr. Ru[address] [place] [address] Care Team Providers Name Role Phone Ady GROSS Attending Clinician Unavailable Doctor Unassigned, Name Attending Clinician Unavailable Payers Payer Name Policy Type Policy Number Effective Date Expiration Date S ource [employer] CHOICE [id number] 2016 00:00:00 Problems Condition Condition Condition Status Onset Resolution Last Treating Co mments Source Name Details Category Date Date Treatment Clinician Date Bilateral Bilateral Disease Active Uni vers foot pain foot pain 6-06 ity of 00:00: [place] [id number] Medical Branch Reflux Reflux Disease Active 2016-09 Overview: [place] s esophagiti esophagiti 2-13 Added it y of s s 00:00: automatic [place] 00 ally from Medical request Branch for surgery [id number] S/P total S/P total Disease Active 2016-09 Uni vers hysterecto hysterecto 0-30 it y of my and BSO [place] (bilateral (bilateral 00 Me dical salpingo-o salpingo-o Br anch ophorectom ophorectom y) y) Breast Breast Disease Active 2016-09 Univers pain, pain, 0-23 ity of right right 00:00: [place] [facility] History of History of Disease Active 2016-09 U nivers colon colon 0-23 ity of polyps polyps 00:00: [place] [address] Medical Branch Abnormal Abnormal Disease Active 2016-09 Overview: [place] ultrasound ultrasound 0-19 Edema, it y of of breast of breast 00:00[place]al [place] dilation, Medical and Branch multiple small cysts; 3 month f/u recommend ed. Uterine Uterine Disease Active 2016-09 Overview: Univ ers procidenti procidenti 0-04 Added it y of a a 00:00: automatic [place] 00 ally from Medical request Branch for surgery [id number] Prediabete Prediabete Disease Active U joelers s s 05-11 ity of 00:00: [place] 00 Medical Branch Abnormal Abnormal Disease Active Unive rs EKG EKG 5- ity of 00:00: [place] [facility] Chest Chest Disease Active Univers pain, pain, 5-25 ity of unspecifie unspecifie [place] type d type [place] Palpitatio Palpitatio Disease Active U joelers ns ns 5- ity of 00:00: [place] [facility] Spinal Spinal Disease Active 2015-09 Univers arthritis arthritis 0-21 ity of 00:00: [place] 00 Medical Branch Patient is Patient is Disease Active U nancy Jehovah's Jehovah's 05-10 ity of Witness Witness 00:00: [place] 00 Medical Branch Colon Colon Disease Active Univers polyps polyps 8-05 ity of 00:00: [place] 00 Medical Branch Chronic Chronic Disease Active Overview: Univ ers neck and neck and 8-05 Neck and ity of back pain back pain 00:00[place] back [place] Prolapse Prolapse Disease Active Unive rs of female of female 8-05 ity of pelvic pelvic 00:00: [place] organs organs 00 Medical Branch Anxiety Anxiety Disease Active Univers 8-05 ity of 00:00: [place] 00 Medical Branch Chronic Chronic Disease Active Univers insomnia insomnia 8-05 ity of 00:00: [place] 00 Medical Branch Microscopi Microscopi Disease Active U nivers c c 8-05 ity of hematuria hematuria [place] [facility] [place] Depression Depression Disease Active U nivers 8-05 ity of 00:00: [place] 00 Medical Branch Diverticul Diverticul Disease Active U nivers osis osis 8-05 ity of 00:00: [place] 00 Medical Branch Mixed Mixed Disease Active Univers hyperlipid hyperlipid 2-20 it y of emia emia 00:00: [place] 00 Medical Branch Hypertensi Hypertensi Disease Active U nivers on on 2-20 ity of 00:00: [place] 00 Medical Branch Allergies, Adverse Reactions, Alerts Allergy Allergy Status Severity Reaction(s) Onset Inactive Treating Comm ents Source Name Type Date Date Clinician NO KNOWN Drug Active Univers ALLERGIE Class ity of S [facility] Social History Social Habit Start Date Stop Date Quantity Comments Source Sex Assigned At [facility] y of [facility] Tobacco use and 2018-05-14 2018-05-[address] [facility] y of exposure 00:00:00 00:00:00 [facility] Alcohol intake 2018-05-14 2018-05-14 Current University 00:00:00 00:00:00 non-drinker of [facility] alcohol [place] (finding) Smoking Status Start Date Stop Date Source Never smoker [facility] Medications Ordered Filled Start Stop Current Ordering Indication Dosage Frequency Signature Comments Components Source Medication Medication Date Date Medication? Clinician (SIG) Name Name OMEPRAZOLE 2017-09 Yes TAKE 1 Unive rs 20 mg 0-29 CAPSULE BY ity of capsule 00:00: MOUTH [place]CE [place] 00 DAILY [place] Branch tiZANidine 2017- Yes [id number] TAKE 1 Univers 2 mg tablet 9-10 TABLET BY ity of 00:00: MOUTH [place] 00 EVERY 8 Medical HOURS Branch NEEDED FOR MUSCLE PAIN OR SPASMS benzonatate 2017-0 Yes 200mg Take 1 Uni vers 200 mg 9-10 capsule by ity of capsule 00:00: mouth 3 [place] 00 (three) Medical times Branch daily as needed for Cough. fluticasone Yes 2{spray Use 2 [place] 50 9-10 } Sprays in ity of mcg/actuati 00:00: each [place] on nasal 00 nostril Medical spray daily. Branch pravastatin 2018- Yes 40mg Take 1 Univ ers 40 mg 6-03 tablet by ity of tablet 00:00: mouth at [place] 00 bedtime. Medical Branch lisinopril 2018-0 Yes 20mg Take 1 Unive rs 20 mg 6-03 tablet by ity of tablet 00:00: mouth [place] 00 daily. Medical Branch SERTraline 2017- Yes [id number] 50mg Take 1 Univers (ZOLOFT) 50 5-30 tablet by ity of mg tablet 00:00: mouth [place] 00 daily. Medical Branch traZODONE Yes [id number] 100mg Take 1 Univers 100 mg 5-30 tablet by ity of tablet 00:00: mouth at [place] 00 bedtime. Medical Branch loratadine Yes 10mg Take 1 Unive rs 10 mg 5-30 tablet by ity of tablet 00:00: mouth [place] 00 daily. Medical Branch docusate 2016-09 Yes 100mg Take 1 Univer s 100 mg 0-31 capsule by ity of capsule 00:00: mouth 2 [place] 00 (two) Medical times Branch daily as needed for Constipati on. HYDROcodone 2016-09 Yes 2{tbl} Take 2 Un [place] -acetaminop 0-31 tablets by it y of hen 5-325 00:00: mouth [place] mg tablet 00 every 6 Medical (six) Branch hours as needed for Pain (scale 7-10). ibuprofen 2016-09 Yes 600mg Take 1 Unive rs 600 mg 0-31 tablet by ity of tablet 00:00: mouth [place] 00 every 6 Medical (six) Branch hours as needed for Pain (scale 4-6) or Alternate with [place] for pain scale 1-3. simethicone 2016-09 Yes 80mg Take 1 Univ ers 80 mg 0-31 tablet by ity of chewable 00:00: mouth [place] tablet 00 after Medical meals and Branch at bedtime. conjugated 2016-09 Yes [id number] .5g Insert 0.5 Univers estrogens 0-03 g into ity of (PREMARIN) 00:00: vagina 2 [place] as 0.625 00 (two) Medical mg/gram times a Branch vaginal week on cream Monday and Monday. Immunizations Ordered Filled Immunization Date Status Comments [facility] e Immunization Name Name Pneumococcal 13 2017-08-03 Completed Universit y of Conjugate, PCV13 00:00:00 [facility] dical (Prevnar 13) Branch Procedures Procedure Date / Time Performed Performing Clinician [facility] REFERRAL- 2020-09-29 06:01:00 Doctor Unassigned, No [facility] [place] REQUEST/RESPONSE Name Medical Branch Encounters Start End Encounter Admission Attending Care Care Encounter Source Date/Time Date/Time Type Type Clinicians Facility Department ID 2020-10-06 2020-10-06 Outpatient Radha GROSS [facility] [id number] Univers 09:00:00 09:00:00 ROB [facility] 2020-10-06 2020-10-06 Outpatient GROSS, [facility] [id number] Univers 09:00:00 09:00:00 ROB [id number] [facility] 2020-09-29 2020-09-29 Orders Doctor FREEMAN [id number] Univers 00:00:00 00:00:00 Only Unassigned, [id number] [facility] [place] [facility] [id number] [facility] as [id number] [address] 2020-09-29 2020-09-29 Orders Doctor FREEMAN [id number] 00:00:00 00:00:00 Only [facility]igned[facility]OMI [id number] [facility] [id number] Results This patient has no known results.
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
[2021-10-15] MEDS ORDERED: ONDANSETRON 4 MG (ODT) TAB ONE (16:25)
[2021-10-15] MEDS ORDERED: HYDROCODONE/APAP 5/325 MG TAB ONE (16:26)
[2021-10-15] MEDS ORDERED: ACETAMINOPHEN 500 MG TAB ONE (16:26)
[2021-10-15 17:08] VITALS: BP 131/83; TEMP 98.1; O2SAT 100
== END 2021-10-15 16:59 | disposition home or self-care (01) ==
LOC: ER 12:55
DX: R51.9 Headache, unspecified (principal); V49.50XA Passenger injured in collision with unspecified motor vehicles in traffic accident, initial encounter; I10 Essential (primary) hypertension
CPT/HCPCS: 70450; 72125; 99284

== ENCOUNTER 2022-06-18 08:52 | Emergency (ER) | payer OTHER ==
--- OUTSIDE RECORDS SUMMARY | 2022-06-18 08:55 | XMS REPORT | Continuity of Care Document ---
:1950 Author Organization [facility] t Address [address] [place] [address] Care Team Providers Name Role Phone ROBERT KAMARA Attending Clinician Unavailable ROB GROSS Attending Clinician Unavailable Doctor Unassigned, [place] Attending Clinician Unavailable Payers Payer Name Policy Type Policy Number Effective Date Expiration Date S ource [employer] CHOICE [id number] 2016 00:00:00 Problems Condition Condition Condition Status Onset Resolution Last Treating Co mments Source Name Details Category Date Date Treatment Clinician Date Bilateral Bilateral Disease Active Uni vers foot pain foot pain 6-06 ity of 00:00: [address] Branch Reflux Reflux Disease Active 2016-09 Overview: Nedra s esophagiti esophagiti 2-13 Added it y of s s 00:00: automatic [place] 00 ally from Medical request Branch for surgery [id number] S/P total S/P total Disease Active 2016-09 [...] colon 0-23 ity of polyps polyps 00:00: [place] [id number] Medical Branch Abnormal Abnormal Disease Active 2016-09 [...] ally from Medical request Branch for surgery [id number] Prediabete Prediabete Disease Active U nivers s s 05-11 ity of 00:00: [place] 00 Medical Branch Abnormal Abnormal Disease Active Unive rs EKG EKG 5-25 ity of 00:00: [place] 00 Medical Branch Chest Chest Disease Active Univers pain, pain, 5-25 ity of [place]specif[place] type Medical Branch Palpitatio Palpitatio Disease Active U nivers ns ns 5-25 ity of 00:00: [place] 00 Medical Branch Spinal Spinal Disease Active 2015-09 Univers arthritis arthritis 0-21 ity of 00:00: [place] 00 Medical Branch Patient is Patient is Disease Active U nivers Jehovah's Jehovah's 05-10 ity of Witness Witness [...] Medical Branch Microscopi Microscopi Disease Active U joelers c c 8-05 ity of hematuria hematuria [...] Active Univers ALLERGIE Class ity of S [facility] Social History Social Habit Start Date Stop Date Quantity Comments Source [facility] Tobacco use and 2018-05-14 2018-05-14 Never used Universit y of exposure 00:00:00 00:00:00 [facility] Alcohol intake 2018-05-14 2018-05-14 Current [facility] 00:00:00 00:00:00 non-drinker of [facility] alcohol [place] (finding) Smoking Status Start Date Stop Date Source Never smoker [facility] Medications Ordered Filled Start Stop Current Ordering Indication Dosage Frequency Signature Comments Components Source Medication Medication Date Date Medication? Clinician (SIG) Name Name OMEPRAZOLE 2017-09 Yes TAKE 1 Unive rs 20 mg 0-29 CAPSULE BY ity of capsule 00:00: [facility] Branch tiZANidine 2017- Yes [id number] TAKE 1 Univers 2 mg tablet 9-10 TABLET BY ity of 00:00: MOUTH [place] 00 EVERY 8 Medical HOURS Branch NEEDED FOR MUSCLE PAIN OR SPASMS benzonatate Yes 200mg Take 1 Uni vers 200 mg 9-10 capsule by ity of capsule 00:00: mouth 3 [place] 00 (three) Medical times Branch daily as needed for Cough. fluticasone Yes 2{spray Use 2 Un rivas 50 9-10 } Sprays in ity of mcg/actuati 00:00: each [place] on nasal 00 nostril Medical spray daily. Branch pravastatin Yes 40mg Take 1 Univ ers 40 mg 6-03 tablet by ity of tablet 00:00: mouth at [place] 00 bedtime. Medical Branch lisinopril 2017- Yes 20mg Take 1 Unive rs 20 mg 6-03 tablet by ity of tablet 00:00: mouth [place] 00 daily. Medical Branch SERTraline 2017- Yes [id number] 50mg Take 1 Univers (ZOLOFT) 50 5-30 tablet by ity of mg tablet 00:00: mouth [place] 00 daily. Medical Branch traZODONE Yes [id number] 100mg Take 1 Univers 100 mg 5-30 [...] for Pain (scale 4-6) or Alternate with [place] for pain scale 1-3. simethicone 2016-09 Yes 80mg Take 1 Univ ers 80 mg 0-31 tablet by ity of chewable 00:00: mouth [place] tablet 00 after Medical meals and Branch at bedtime. conjugated 2016-09 Yes [id number] .5g Insert 0.5 Univers estrogens 0-03 g into ity of (PREMARIN) 00:00: vagina 2 Jose Luis as 0.625 00 (two) Medical mg/gram times a Branch vaginal week on cream Monday and Monday. Immunizations Ordered Filled Immunization Date Status Comments [facility] e Immunization Name Name Pneumococcal 13 2017-08-03 Completed Universit y of Conjugate, PCV13 00:00:00 [facility] dical (Prevnar 13) Branch Procedures Procedure Date / Time Performed Performing Clinician [facility] e REFERRAL- 2020-09-29 06:01:00 Doctor Unassigned, No [facility] [place] REQUEST/RESPONSE Name Medical Branch Encounters Start End Encounter Admission Attending Care Care Encounter Source Date/Time Date/Time Type Type Clinicians Facility Department ID 2022-03-03 2022-03-03 Outpatient JESUS KAMARA [id number] Jesus 10:45:00 10:45:00 ROBERT rios 2020-10-06 2020-10-06 [id number] Univers 09:00:00 09:00:00 ROB [id number] [facility] 2020-10-06 2020-10-06 Outpatient R RENATO [facility] [id number] Univers 09:00:00 09:00:00 ROB [facility] 2020-09-29 2020-09-29 Orders Doctor FREEMAN [id number] [facility] 00:00:00 00:00:00 Only Unassigned, [id number] [place] [facility] [id number] [facility] [id number] [address] 2020-09-29 2020-09-29 Orders Doctor FREEMAN [id number] 00:00:00 00:00:00 Only UnassignedYOMI [id number] [facility] [id number] Results This patient has no known results.
[2022-06-18] MEDS ORDERED: HYDROCODONE/CHLORPHEN 5 ML/OSYR ONE (10:25)
[2022-06-18] MEDS ORDERED: OSELTAMIVIR 75 MG CAP ONE (10:25)
[2022-06-18 10:31] LABS: Absolute Lymphocytes (CBC) 0.3 K/uL (0.7-4.9); Hematocrit 37.4 % (36.0-45.0); Lymphocytes % 3.6 % (15.3-44.8); MCV 90.7 fL (80-100); MPV 8.9 fL (7.6-11.3); RBC Red Blood Cell Count 4.12 M/uL (3.86-4.86)
[2022-06-18 10:34] LABS: Protime INR 1.05
[2022-06-18 10:47] LABS: Urine Blood Trace-intact (Negative); Urine Glucose Negative (Negative); Urine Protein Negative (Negative); Urine Specific Gravity 1.015 (1.005-1.030); Urine pH 8.5 (5.0-7.0)
[2022-06-18 10:50] LABS: Magnesium 2.1 mg/dL (1.8-2.4); Potassium 3.9 mmol/L (3.5-5.1); Troponin High Sensitivity 5.2 pg/mL (<58.9)
[2022-06-18] MEDS ORDERED: NA CHLORIDE 0.9% 500 ML ONE (10:57)
--- NOTE | 2022-06-18 11:37 | RAD REPORT ---
EXAM DESCRIPTION: Sarah Single View06/18/2022 11:24 am CLINICAL HISTORY: Cough COMPARISON: 2019 FINDINGS: The lungs appear clear of acute infiltrate. The heart is normal size IMPRESSION: No acute abnormalities displayed
[2022-06-18] MEDS ORDERED: IBUPROFEN 400 MG TAB ONE (12:36)
--- NOTE | 2022-06-18 12:45 | ER ---
Nurse's Notes [facility] Name: Mary Ortega Age: 72 yrs Sex: Female : 1950 Arrival Date: 06/18/2022 Time: 09:00 Bed 12 Private MD: Noel Carter Diagnosis: Influenza due to identified novel influenza A virus with other respiratory manifestations Presentation: 06/18 09:12 Chief complaint: Patient states: ADAME, general weakness, N/V x 1 day. Coronavirus screen: jl7 fatigue, headache, nausea, vomiting. Ebola Screen: No symptoms or risks identified at this time. Initial Sepsis Screen: Does the patient meet any 2 criteria? No. Patient's initial sepsis screen is negative. Does the patient have a suspected source of infection? No. Patient's initial sepsis screen is negative. Risk Assessment: Do you want to hurt yourself or someone else? Patient reports no desire to harm self or others. Onset of symptoms was June 17, 2022. 09:12 Method Of Arrival: Ambulatory [facility] 09:12 Acuity: MYKE 3 jl7 Triage Assessment: 09:14 General: Appears in no apparent distress. uncomfortable, ill, Behavior is calm, jl7 cooperative, appropriate for age. Pain: Complains of pain in ADAME Pain currently is 10 out of 10 on a pain scale. Historical: - Allergies: 09:14 No Known Allergies; jl7 - PMHx: 09:14 Back pain; Chronic back and neck pain; Hyperlipidemia; Hypertension; jl7 - PSHx: 09:14 hysterectomy; jl7 - Immunization history:: Client reports receiving the 2nd dose of the Covid vaccine. - Social history:: Smoking status: Patient denies any tobacco usage or history of. Screenin:09 Abuse screen: Denies threats or abuse. Nutritional screening: No deficits noted. kr3 Tuberculosis screening: No symptoms or risk factors identified. Fall Risk IV access (20 points). Total [place] Fall Scale indicates No Risk (0-24 pts). Vital Signs: 09:12 BP 132 / 77; Pulse 128; Resp 19; Temp 99.8; Pulse Ox 95% ; Weight 68.04 kg; Height 5 jl7 ft. 5 in. (165.10 cm); Pain 10/10; 12:34 BP 113 / 73; Pulse 107; Resp 20; Pulse Ox 96% on R/A; kr3 09:12 Body Mass Index 24.96 (68.04 kg, 165.10 cm) jl7 ED Course: 09:00 Patient arrived in ED. am2 09:00 Noel Carter DO is Private Physician. am2 09:03 Pepe Bundy PA is PHCP. cp 09:03 Kishor Deluna MD is Attending Physician. cp 09:14 Triage completed. jl7 09:14 Arm band placed on right wrist. jl7 09:28 COVID swab sent to lab. Flu and/or RSV swab sent to lab. Strep swab sent to lab. jl7 10:15 Yazmin Tran, SU is Primary Nurse. jl7 10:40 Initial lab(s) drawn, by me, sent to lab. Inserted saline lock: 20 gauge in right jl7 antecubital area, using aseptic technique. Blood collected. 10:41 Patient has correct armband on for positive identification. Placed in gown. Bed in low jl7 position. Call light in reach. Side rails up X 1. 11:26 XRAY Chest (1 view) In Process Unspecified. EDMS 13:10 No provider procedures requiring assistance completed. IV discontinued, intact, kr3 bleeding controlled, No redness/swelling at site. Pressure dressing applied. Administered Medications: 10:34 Not Given (Patient Refused): Tamiflu (oseltamivir) 75 mg PO once jl7 10:34 Drug: Tussionex Pennkinetic ER (chlorpheniramine-hydrocodone) Suspension 5 ml Route: PO;jl7 13:11 Follow up: Response: No adverse reaction kr3 11:00 Drug: NS 0.9% 500 ml Route: IV; Rate: 500 ml/hr; Site: right antecubital; kr3 13:10 Follow up: Response: No adverse reaction; IV Status: Completed infusion; IV Intake: kr3 500ml 12:40 Drug: Ibuprofen 800 mg Route: PO; kr3 13:10 Follow up: Response: No adverse reaction kr3 Medication: 13:10 VIS not applicable for this client. kr3 Intake: 13:10 IV: 500ml; Total: 500ml. kr3 Outcome: 12:45 Discharge ordered by . cp 13:06 Patient left the ED. kr3 13:10 Discharged to home ambulatory. kr3 13:10 Condition: stable 13:10 Discharge instructions given to patient, family, Instructed on discharge instructions, follow up and referral plans. medication usage, Demonstrated understanding of instructions, follow-up care, medications, Prescriptions given X 3. Signatures: Dispatcher [employer] EDMS Pepe Bundy PA PA cp Leal, Jahala, RN RN jl7 Aparna Deshpande am2 Michelle Dela Cruz RN RN kr3
--- NOTE | 2022-06-18 12:45 | EDPHYS ---
Physician Documentation [facility] Name: Mary Ortega Age: 72 yrs Sex: Female : 1950 Arrival Date: 06/18/2022 Time: 09:00 Bed 12 Private MD: Noel Carter ED Physician Kishor Deluna HPI: 06/18 09:45 This 72 yrs old Female presents to ER via Ambulatory with complaints of Flu cp Symptoms, Cough. 09:45 The patient or guardian reports cough, that is intermittent. cp 09:45 Onset: The symptoms/episode began/occurred 1 day(s) ago. Associated signs and symptoms: cp Pertinent positives: chest pain, sore throat, headache, body aches. Severity of symptoms: in the emergency department the symptoms are unchanged despite home interventions. Historical: - Allergies: 09:14 No Known Allergies; jl7 - PMHx: 09:14 Back pain; Chronic back and neck pain; Hyperlipidemia; Hypertension; jl7 - PSHx: 09:14 hysterectomy; jl7 - Immunization history:: Client reports receiving the 2nd dose of the Covid vaccine. - Social history:: Smoking status: Patient denies any tobacco usage or history of. ROS: 09:50 Constitutional: Positive for body aches, Negative for fever. cp 09:50 Eyes: Negative for injury, pain, redness, and discharge. cp 09:50 ENT: Positive for sore throat, Negative for drainage from ear(s), ear pain, difficulty swallowing, difficulty handling secretions. 09:50 Cardiovascular: Positive for chest pain, Negative for edema. 09:50 Respiratory: Positive for cough, Negative for shortness of breath, wheezing. 09:50 Abdomen/GI: Negative for abdominal pain, vomiting, diarrhea, constipation. 09:50 Neuro: Positive for headache, weakness, Negative for altered mental status. 09:50 All other systems are negative. Exam: 10:00 Constitutional: The patient appears in no acute distress, alert, awake, cp non-diaphoretic, non-toxic, well developed, well nourished. 10:00 Head/Face: Normocephalic, atraumatic. cp 10:00 Eyes: Periorbital structures: appear normal, Conjunctiva: normal, no exudate, no injection, Sclera: no appreciated abnormality, Lids and lashes: appear normal, bilaterally. 10:00 ENT: External ear(s): are unremarkable, Nose: is normal, Mouth: Lips: moist, Oral mucosa: moist, Posterior pharynx: Airway: no evidence of obstruction, patent, Tonsils: with erythema, no enlargement, no exudate, erythema, that is mild, exudate, is not appreciated. 10:00 Neck: ROM/movement: is normal, is supple, no meningismus, no nuchal rigidity. 10:00 Chest/axilla: Inspection: normal. 10:00 Cardiovascular: Rate: tachycardic, Rhythm: regular, Edema: is not appreciated, JVD: is not appreciated. 10:00 Respiratory: the patient does not display signs of respiratory distress, Respirations: normal, no use of accessory muscles, no retractions, labored breathing, is not present, Breath sounds: are clear throughout, no decreased breath sounds, no stridor, no wheezing. 10:00 Abdomen/GI: Inspection: abdomen appears normal, Palpation: abdomen is soft and non-tender, in all quadrants. 10:00 Back: ROM is normal, CVA tenderness, is absent. 10:00 Skin: no rash present. 10:00 Neuro: Orientation: to person, place \\T\\ time. Mentation: is normal, Motor: moves all fours, strength is normal. 10:05 ECG was reviewed by the Attending Physician. Vital Signs: 09:12 BP 132 / 77; Pulse 128; Resp 19; Temp 99.8; Pulse Ox 95% ; Weight 68.04 kg; Height 5 jl7 ft. 5 in. (165.10 cm); Pain 10/10; 12:34 BP 113 / 73; Pulse 107; Resp 20; Pulse Ox 96% on R/A; kr3 09:12 Body Mass Index 24.96 (68.04 kg, 165.10 cm) jl7 MDM: 09:31 Patient medically screened. 12:45 Data reviewed: vital signs, nurses notes, lab test result(s), radiologic studies, plain cp films, and as a result, I will discharge patient. 06/18 09:21 Order name: COVID-19 SARS RT PCR (Document "Date of Onset" if Symptomatic); Complete [facility] Time: 11:55 06/18 11:55 Interpretation: Reviewed. cp 06/18 09:21 Order name: Flu; Complete Time: 10:10 jl7 06/18 10:10 Interpretation: Abnormal: FLUA FLU A ----- POSITIVE for FLU A protein antigen. cp 06/18 09:21 Order name: Strep; Complete Time: 10:10 jl7 06/18 09:44 Order name: Basic Metabolic Panel; Complete Time: 10:54 cp 06/18 10:54 Interpretation: Normal except: NA 130; CL 97; GLUC 130. cp 06/18 09:44 Order name: CBC with Diff; Complete Time: 10:54 cp 06/18 11:56 Interpretation: Normal except: KAYCE% 88.0; LYM% 3.6; LYMA 0.3. cp 06/18 09:44 Order name: Magnesium; Complete Time: 10:54 cp 06/18 09:44 Order name: NT PRO-BNP; Complete Time: 10:54 cp 06/18 09:44 Order name: PT-INR; Complete Time: 10:54 06/18 09:44 Order name: Troponin HS; Complete Time: 10:54 cp 06/18 09:44 Order name: XRAY Chest (1 view); Complete Time: 11:55 cp 06/18 11:55 Interpretation: Report review. 06/18 10:06 Order name: Throat Culture EDMS 06/18 10:47 Order name: Urine Dipstick-Ancillary; Complete Time: 10:54 EDMS 06/18 11:56 Interpretation: Normal except: UKET Trace; UBLD Trace-intact; UPH 8.5. 06/18 09:44 Order name: EKG; Complete Time: 09:45 cp 06/18 09:44 Order name: Cardiac monitoring; Complete Time: 10:15 cp 06/18 09:44 Order name: EKG - Nurse/Tech; Complete Time: 10:15 cp 06/18 09:44 Order name: IV Saline Lock; Complete Time: 10:34 cp 06/18 09:44 Order name: Labs collected and sent; Complete Time: 10:34 cp 06/18 09:44 Order name: O2 Per Protocol; Complete Time: 10:15 cp 06/18 09:44 Order name: O2 Sat Monitoring; Complete Time: 10:15 cp 06/18 09:55 Order name: Urine Dipstick-Ancillary (obtain specimen); Complete Time: 12:29 cp EC:05 Rate is 118 beats/min. Rhythm is regular. MI interval is normal. QRS interval is cp normal. QT interval is normal. T waves are Inverted in lead aVR. Interpreted by me. Reviewed by me. Administered Medications: 10:34 Not Given (Patient Refused): Tamiflu (oseltamivir) 75 mg PO once jl7 10:34 Drug: Tussionex Pennkinetic ER (chlorpheniramine-hydrocodone) Suspension 5 ml Route: PO;jl7 13:11 Follow up: Response: No adverse reaction kr3 11:00 Drug: NS 0.9% 500 ml Route: IV; Rate: 500 ml/hr; Site: right antecubital; kr3 13:10 Follow up: Response: No adverse reaction; IV Status: Completed infusion; IV Intake: kr3 500ml 12:40 Drug: Ibuprofen 800 mg Route: PO; kr3 13:10 Follow up: Response: No adverse reaction kr3 Disposition: 13:33 Co-signature as Attending Physician, Kishor Deluna MD I agree with the assessment and kdr plan of care. Disposition Summary: 06/18/22 12:45 Discharge Ordered Location: Home cp Problem: new cp Symptoms: have improved cp Condition: Stable cp Diagnosis - Influenza due to identified novel influenza A virus with other respiratory cp manifestations Followup: cp - With: Private Physician - When: 1 - 2 days - Reason: Worsening of condition Discharge Instructions: - Discharge Summary Sheet cp - Influenza, Adult cp Forms: - Medication Reconciliation Form cp - Thank You Letter cp - Antibiotic Education cp - Prescription Opioid Use cp Prescriptions: - Bromfed DM 2-30-10 mg/5 mL Oral syrup - take 10 milliliter by ORAL route every 6 hours; 180 milliliter; Refills: 0, cp Product Selection Permitted - Ibuprofen 800 mg Oral Tablet - take 1 tablet by ORAL route every 8 hours As needed take with food; 30 tablet; cp Refills: 0, Product Selection Permitted - Tamiflu 75 mg Oral Capsule - take 1 capsule by ORAL route every 12 hours for 5 days; 10 capsule; Refills: 0, cp Product Selection Permitted Signatures: Dispatcher [employer] Kishor Fuentes MD MD kdr Pepe Bundy PA PA cp Leal, Jahala, RN RN jl7 Michelle Dela Cruz RN RN kr3
[2022-06-18 13:10] VITALS: TEMP 99.8
[2022-06-18 13:11] VITALS: BP 113/73; O2SAT 96
--- NOTE | 2022-06-20 16:12 | EKG ---
Test Date: 2022-06-18 Test Time: 10:02:35 Physical Integration Practitioner: APPLE MEASUREMENT RESULTS: Intervals: Rate: 118 IL: 152 QRSD: 68 QT: 322 QTc: 451 [place]: P: 34 IL: 152 QRS: 27 T: 56 INTERPRETIVE STATEMENTS: Sinus tachycardia Otherwise normal ECG Compared to ECG 08/31/2020 13:10:58 Sinus rhythm no longer present ST (T wave) deviation no longer present Electronically Signed On 06-20-22 16:09:19 CDT by Devonte Royal
== END 2022-06-18 13:06 | disposition home or self-care (01) ==
LOC: ER 08:52
DX: J10.1 Influenza due to other identified influenza virus with other respiratory manifestations (principal); Z20.822 Contact with and (suspected) exposure to COVID-19; I10 Essential (primary) hypertension
CPT/HCPCS: 96361; 93005; 87070; 85025; 80048; 36415; 83735; 85610; 87081; 81003; 84484; 83880; 87804 ×2; 71045; 96360; 99284; U0003; J7040

== ENCOUNTER 2022-06-23 08:24 | Emergency (ER) | payer OTHER ==
--- OUTSIDE RECORDS SUMMARY | 2022-06-23 08:27 | XMS REPORT | Continuity of Care Document ---
:1950 Author Organization [facility] t Address [address] [place] [address] Care Team Providers Name Role Phone ROBERT KAMARA Attending Clinician Unavailable ROB GROSS Attending Clinician Unavailable Doctor Unassigned, [place] Attending Clinician Unavailable Payers Payer Name Policy Type Policy Number Effective Date Expiration Date S ource [employer] CHOICE [id number] 2016 00:00:00 Problems Condition Condition Condition Status Onset Resolution Last Treating Co mments Source Name Details Category Date Date Treatment Clinician Date Bilateral Bilateral Disease Active Uni vers foot pain foot pain 6-06 ity of 00:00: [address] Branch Reflux Reflux Disease Active 2016-09 Overview: Nedra s esophagiti esophagiti 2-13 Added it y of s s 00:00: automatic [place] 00 ally from Medical request Branch for surgery [id number] S/P total S/P total Disease Active 2016-09 [...] colon 0-23 ity of polyps polyps 00:00: [place] [id number] Medical Branch Abnormal Abnormal Disease Active 2016-09 [...] ally from Medical request Branch for surgery [id number] Prediabete Prediabete Disease Active U nivers s [...] ALLERGIE Class ity of S [facility] Social History Social Habit Start Date Stop Date Quantity Comments [facility] Tobacco use and 2018-05-14 2018-05-14 Never used Universit y of exposure 00:00:00 00:00:00 [facility] Alcohol intake 2018-05-14 2018-05-14 Current [facility] 00:00:00 00:00:00 non-drinker of [facility] alcohol [place] (finding) Smoking Status Start Date Stop Date Source Never smoker [facility] Medications Ordered Filled Start Stop Current Ordering Indication Dosage Frequency Signature Comments Components Source Medication Medication Date Date Medication? Clinician (SIG) Name Name OMEPRAZOLE 2017-09 Yes TAKE 1 Unive rs 20 mg 0-29 CAPSULE BY ity of capsule 00:00: MOUTH ONCE [facility] DA[facility] Medical Branch tiZANidine 2017- Yes [id number] TAKE 1 Univers 2 mg tablet 9-10 [...] by ity of tablet 00:00: mouth at [place] 00 bedtime. Medical Branch lisinopril 2017- Yes 20mg Take 1 Unive rs 20 mg 6-03 tablet by ity of tablet 00:00: mouth [place] 00 daily. Medical Branch SERTraline 2017- Yes [id number] 50mg Take 1 Univers (ZOLOFT) 50 5-30 tablet by ity of mg tablet 00:00: mouth [place] 00 daily. Medical Branch traZODONE Yes [id number] 100mg Take 1 Univers 100 mg 5-30 [...] for Pain (scale 4-6) or Alternate with [place] for pain scale 1-3. simethicone 2016-09 Yes 80mg Take 1 Univ ers 80 mg 0-31 tablet by ity of chewable 00:00: mouth [place] tablet 00 after Medical meals and Branch at bedtime. conjugated 2016-09 Yes [id number] .5g Insert 0.5 Univers estrogens 0-03 g into ity of (PREMARIN) 00:00: vagina 2 Jose Luis as 0.625 00 (two) Medical mg/gram times a Branch vaginal week on cream Monday and Monday. Immunizations Ordered Filled Immunization Date Status Comments [facility] e Immunization Name Name Pneumococcal 13 2017-08-03 Completed Universit y of Conjugate, PCV13 00:00:00 [facility] dical (Prevnar 13) Branch Procedures Procedure Date / Time Performed Performing Clinician [facility] e REFERRAL- 2020-09-29 06:01:00 Doctor Unassigned, No [facility] [place] REQUEST/RESPONSE Name Medical Branch Encounters Start End Encounter Admission Attending Care Care Encounter Source Date/Time Date/Time Type Type Clinicians Facility Department ID 2022-03-03 2022-03-03 Outpatient JESUS KAMARA [id number] [facility] 10:45:00 10:45:00 ROBERT rios 2020-10-06 2020-10-06 [id number] Univers 09:00:00 09:00:00 ROB [id number] [facility] 2020-10-06 2020-10-06 Outpatient R RENATO [facility] [id number] Univers 09:00:00 09:00:00 ROB [facility] 2020-09-29 2020-09-29 Orders Doctor FREEMAN [id number] [facility] 00:00:00 00:00:00 Only Unassigned, YOMI [id number] [facility] [place] [facility] [id number] [facility] [id number] [address] 2020-09-29 2020-09-29 Orders Doctor FREEMAN [id number] 00:00:00 00:00:00 Only UnassignedYOMI [id number] [facility] [id number] Results This patient has no known results.
[2022-06-23] MEDS ORDERED: NA CHLORIDE 0.9% 1,000 ML ONE (08:39)
[2022-06-23 09:00] LABS: Urine Blood Trace-intact (Negative); Urine Glucose Negative (Negative); Urine Protein Negative (Negative)
[2022-06-23 09:08] LABS: Absolute Lymphocytes (CBC) 1.5 K/uL (0.7-4.9); Lymphocytes % 26.7 % (15.3-44.8); MCV 90.6 fL (80-100); MPV 8.4 fL (7.6-11.3); RBC Red Blood Cell Count 4.53 M/uL (3.86-4.86)
[2022-06-23 09:09] LABS: Protime INR 0.97
[2022-06-23 09:10] LABS: Urine Mucus Slight /HPF (None Seen)
--- NOTE | 2022-06-23 09:16 | RAD REPORT ---
EXAM DESCRIPTION: RAD - Chest Single View - 06/23/2022 8:59 am CLINICAL HISTORY: ABDOMINAL DISTENTION COMPARISON: Portable 06/18/2022 TECHNIQUE: AP portable chest image was obtained 06/23/2022 8:59 am . FINDINGS: No focal lung parenchymal process. Prominent baseline interstitial pattern is accentuated due to low lung volumes. Substantial change since June 18 is not evident. Heart and vasculature are normal. No measurable pleural effusion and no pneumothorax. No acute bony abnormality seen. No acute aortic findings suspected. IMPRESSION: No acute cardiopulmonary process. Chest findings are not clearly different from June 18 imaging.
[2022-06-23 09:33] LABS: Bilirubin Direct 0.1 mg/dL (0-0.2); Bilirubin Total 0.3 mg/dL (0.2-1.0); Potassium 3.5 mmol/L (3.5-5.1); Protein, Total 8.4 g/dL (6.4-8.2); Troponin High Sensitivity 5.5 pg/mL (<58.9)
[2022-06-23] MEDS ORDERED: FAMOTIDINE 20 MG/2 ML VIAL IV ONE (10:05)
[2022-06-23] MEDS ORDERED: FENTANYL CITR 100 MCG/2 ML ONE (10:05)
[2022-06-23] MEDS ORDERED: ONDANSETRON 4 MG/2 ML VIAL ONE (10:05)
--- NOTE | 2022-06-23 10:58 | RAD REPORT ---
EXAM DESCRIPTION: CT - Abdomen Pelvis Wo Contrast - 06/23/2022 10:44 am CLINICAL HISTORY: Abdominal pain, acute, nonlocalized COMPARISON: Abdomen Pelvis W Contrast dated 07/28/2020 TECHNIQUE: Axial [address] imaging of the abdomen and pelvis was performed without IV contrast. No IV contrast was given because of allergy, abnormal renal function, patient refusal or physician re quest. No oral contrast administered. All CT scans are performed using dose optimization technique as appropriate and may include automated exposure control or mA/KV adjustment according to patient size. FINDINGS: No suspicious findings in the lung bases. The liver, spleen and pancreas show no suspicious findings on non-contrast imaging. Left lobe liver c yst has not changed since 2019. Gallbladder and biliary tree are also without suspicious finding. No hydronephrosis or suspicious renal mass. No significant adrenal finding. Isodense renal masses an d pyelonephritis cannot be excluded in the absence of IV contrast. The urinary bladder is without sig nificant finding. Uterus is absent. Ovaries are atrophic or absent. PHARMACEUTICAL DETAILER acute finding. No gastric dilatation or gastric wall thickening. No small bowel abnormality seen. Patient has a mild jaramillo diverticulosis pattern with more advanced diverticulosis in the descending colon distal portion and the sigmoid colon. Acute diverticulitis is not identifiable. Peristalsis artifact and absent alexandrea l content creates wall thickening in the hepatic flexure region. A true mass of the colon is not susp ected. No free air, free fluid or inflammatory stranding. No hernia, mass or bulky lymphadenopathy. No suspicious bony findings. Disc and bone degenerative changes are present similar to prior imaging. IMPRESSION: No pancreatitis or other abnormality in the epigastric region to explain the patient cherelle n pattern. Patient has extensive diverticulosis in the left side colon but no acute diverticulitis findings seen at this time. Full assessment is limited is the absence of IV contrast. No other significant findings identifiable.
--- NOTE | 2022-06-23 11:12 | RAD REPORT ---
EXAM DESCRIPTION: US - Abdomen Exam Limited - 06/23/2022 10:32 am CLINICAL HISTORY: ABD PAIN COMPARISON: Abdomen Pelvis W Contrast dated 07/28/2020; Abdomen Pelvis Wo Contrast dated 022 FINDINGS: No gallstones, sludge or other abnormalities within the gallbladder lumen. There is no wal l thickening or pericholecystic fluid. No common duct stone or biliary tree dilatation identified. Echotexture and partially imaged liver indicates fatty infiltration. A 3 centimeter left lobe cyst is not changed prior imaging. IMPRESSION: No gallbladder or biliary tree abnormality seen.
--- NOTE | 2022-06-23 11:16 | EDPHYS ---
Physician Documentation [facility] Name: Mary Ortega Age: 72 yrs Sex: Female : 1950 Arrival Date: 06/23/2022 Time: 08:28 Bed 8 Private MD: ED Physician Pepe Anthony HPI: 06/23 09:56 This 72 yrs old Female presents to ER via Ambulatory with complaints of kathleen Abdominal Pain. 09:56 The patient presents with abdominal pain in the upper abdomen, in the lower abdomen. kathleen Onset: The symptoms/episode began/occurred 3 day(s) ago. The symptoms do not radiate. Associated signs and symptoms: none. The symptoms are described as crampy. Modifying factors: The symptoms are alleviated by nothing, the symptoms are aggravated by food. Severity of pain: At its worst the pain was mild moderate in the emergency department the pain is unchanged. The patient has experienced similar episodes in the past, multiple times. Historical: - Allergies: 08:55 No Known Allergies; ss - Home Meds: 08:55 lisinopril 20 mg Oral tab 1 tab once daily [Active]; omeprazole 20 mg Oral cpDR 1 cap ss once daily [Active]; - PMHx: 08:55 Back pain; Chronic back and neck pain; Hyperlipidemia; Hypertension; ss - PSHx: 08:55 hysterectomy; ss - Immunization history:: Client reports receiving the 2nd dose of the Covid vaccine. - Social history:: Smoking status: Patient denies any tobacco usage or history of. - Family history:: not pertinent. ROS: 09:56 Constitutional: Negative for fever, chills, and weight loss, Eyes: Negative for injury, kathleen pain, redness, and discharge, ENT: Negative for injury, pain, and discharge, Neck: Negative for injury, pain, and swelling, Cardiovascular: Negative for chest pain, palpitations, and edema, Respiratory: Negative for shortness of breath, cough, wheezing, and pleuritic chest pain, Back: Negative for injury and pain, : Negative for injury, bleeding, discharge, and swelling, MS/Extremity: Negative for injury and deformity, Skin: Negative for injury, rash, and discoloration, Neuro: Negative for headache, weakness, numbness, tingling, and seizure, Psych: Negative for depression, anxiety, suicide ideation, homicidal ideation, and hallucinations, Allergy/Immunology: Negative for hives, rash, and allergies, Endocrine: Negative for neck swelling, polydipsia, polyuria, polyphagia, and marked weight changes. 09:56 Abdomen/GI: Positive for abdominal pain, of the epigastric area, right upper quadrant and left upper quadrant. Exam: 09:56 Constitutional: This is a well developed, well nourished patient who is awake, alert, kathleen and in no acute distress. Head/Face: Normocephalic, atraumatic. Eyes: Pupils equal round and reactive to light, extra-ocular motions intact. Lids and lashes normal. Conjunctiva and sclera are non-icteric and not injected. Cornea within normal limits. Periorbital areas with no swelling, redness, or edema. ENT: Nares patent. No nasal discharge, no septal abnormalities noted. Tympanic membranes are normal and external auditory canals are clear. Oropharynx with no redness, swelling, or masses, exudates, or evidence of obstruction, uvula midline. Mucous membranes moist. Neck: Trachea midline, no thyromegaly or masses palpated, and no cervical lymphadenopathy. Supple, full range of motion without nuchal rigidity, or vertebral point tenderness. No Meningismus. Chest/axilla: Normal chest wall appearance and motion. Nontender with no deformity. No lesions are appreciated. Cardiovascular: Regular rate and rhythm with a normal S1 and S2. No gallops, murmurs, or rubs. Normal PMI, no JVD. No pulse deficits. Respiratory: Lungs have equal breath sounds bilaterally, clear to auscultation and percussion. No rales, rhonchi or wheezes noted. No increased work of breathing, no retractions or nasal flaring. Back: No spinal tenderness. No costovertebral tenderness. Full range of motion. Female : Normal external genitalia. Skin: Warm, dry with normal turgor. Normal color with no rashes, no lesions, and no evidence of cellulitis. MS/ Extremity: Pulses equal, no cyanosis. Neurovascular intact. Full, normal range of motion. Neuro: Awake and alert, GCS 15, oriented to person, place, time, and situation. Cranial nerves II-XII grossly intact. Motor strength 5/5 in all extremities. Sensory grossly intact. Cerebellar exam normal. Normal gait. Psych: Awake, alert, with orientation to person, place and time. Behavior, mood, and affect are within normal limits. 09:56 Abdomen/GI: Inspection: abdomen appears normal, Bowel sounds: normal, Palpation: mild abdominal tenderness, moderate abdominal tenderness, in the epigastric area and left upper quadrant, Liver: no appreciated palpable abnormalities, Hernia: not appreciated. Vital Signs: 08:40 BP 170 / 97; Pulse 97; Resp 17; Temp 98.6(O); Pulse Ox 100% on R/A; Weight 68.04 kg; ss Height 5 ft. 5 in. (165.10 cm); Pain 10/10; 09:17 BP 155 / 91; Pulse 91; Resp 16; Pulse Ox 97% ; Pain 6/10; mb8 09:45 BP 158 / 97; Pulse 88; Resp 16; Pulse Ox 98% ; Pain 6/10; mb8 10:50 BP 173 / 99; Pulse 88; Resp 16; Pulse Ox 97% on R/A; Pain 5/10; mb8 08:40 Body Mass Index 24.96 (68.04 kg, 165.10 cm) ss MDM: 08:30 Patient medically screened. kathleen 09:59 Differential diagnosis: coronary artery disease, Cholelithiasis, diverticulitis, kathleen gastritis, gastroesophageal reflux disease, Irritable bowel syndrome, Mesenteric ischemia or infarction, non-specific abd pain, pancreatitis, Peptic Ulcer Disease, urinary tract infection. Data reviewed: vital signs, nurses notes, lab test result(s), EKG, radiologic studies, CT scan, ultrasound. Data interpreted: telemetry monitor: rate is 91 beats/min, rhythm is regular, Pulse oximetry: on room air is 97 %. Test interpretation: by ED physician or midlevel provider: ECG, plain radiologic studies. 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 06/23 08:34 Order name: Basic Metabolic Panel; Complete Time: 09:40 kathleen 06/23 08:34 Order name: CBC with Diff; Complete Time: 09:40 kathleen 06/23 08:34 Order name: LFT's; Complete Time: 09:40 kathleen 06/23 08:34 Order name: Magnesium; Complete Time: 09:40 [facility] 06/23 08:34 Order name: NT PRO-BNP; Complete Time: 09:40 [facility] 06/23 08:34 Order name: PT-INR; Complete Time: 09:40 [facility] 06/23 08:34 Order name: Troponin HS; Complete Time: 09:40 [facility] 06/23 08:34 Order name: XRAY Chest (1 view); Complete Time: 09:40 [facility] 06/23 08:34 Order name: Lipase; Complete Time: 09:40 [facility] 06/23 08:34 Order name: Urine Culture [facility] 06/23 08:34 Order name: Urine Microscopic Only; Complete Time: 09:40 [facility] 06/23 09:01 Order name: Urine Dipstick-Ancillary; Complete Time: 09:40 EDMS 06/23 09:42 Order name: US Abdomen Limited [facility] 06/23 09:42 Order name: CT Abd/Pelvis - IV Contrast Only [facility] 06/23 08:34 Order name: Cardiac monitoring; Complete Time: 09:05 [facility] 06/23 08:34 Order name: EKG - Nurse/Tech; Complete Time: 09:32 [facility] 06/23 08:34 Order name: IV Saline Lock; Complete Time: 09:05 [facility] 06/23 08:34 Order name: Labs collected and sent; Complete Time: 09:05 [facility] 06/23 08:34 Order name: O2 Per Protocol; Complete Time: 09:05 [facility] 06/23 08:34 Order name: O2 Sat Monitoring; Complete Time: 09:05 [facility] 06/23 08:34 Order name: Urine Dipstick-Ancillary (obtain specimen); Complete Time: 09:04 [facility] 06/23 10:41 Order name: Abdomen ; Complete Time: 11:10 EDMS Administered Medications: 09:00 Drug: NS 0.9% 500 ml Route: IV; Rate: bolus; Site: left antecubital; mb8 09:30 Follow up: IV Status: Completed infusion mb8 09:00 Drug: NS 0.9% 1000 ml Route: IV; Rate: 125 ml/hr; Site: left antecubital; mb8 11:30 Follow up: IV Status: Completed infusion mb8 10:45 Drug: Pepcid (famotidine) 20 mg Route: IVP; Site: left antecubital; mb8 11:39 Follow up: Response: No adverse reaction; Pain is decreased mb8 10:47 Drug: fentaNYL (PF) 25 mcg Route: IVP; Site: left antecubital; mb8 11:38 Follow up: Response: No adverse reaction; Pain is decreased; RASS: Alert and Calm (0) mb8 10:49 Drug: Zofran (Ondansetron) 4 mg Route: IVP; Site: left antecubital; mb8 11:38 Follow up: Response: No adverse reaction mb8 11:38 Not Given (Patient Refused): fentaNYL (PF) 25 mcg IVP once mb8 Disposition Summary: 06/23/22 11:15 Discharge Ordered Location: Home [facility] Problem: new kathleen Symptoms: have improved kathleen Condition: Stable kathleen Diagnosis - Epigastric abdominal tenderness kathleen - Functional dyspepsia kathleen - Diverticulosis of intestine, part unspecified, without perforation or abscess kathleen without bleeding Followup: kathleen - With: Private Physician - When: 2 - 3 days - Reason: Recheck today's complaints, Continuance of care, Re-evaluation by your physician Followup: kathleen - With: - When: Today - Reason: Recheck today's complaints, Continuance of care, Re-evaluation by your physician Discharge Instructions: - Discharge Summary Sheet kathleen - Abdominal Pain, Adult kathleen - Abdominal Pain, Adult, [id number] kathleen - Indigestion, [id number] [facility] Forms: - Medication Reconciliation Form [facility] - Thank You Letter [facility] - Antibiotic Education [facility] - Prescription Opioid Use [facility] Prescriptions: - Pepcid 20 mg Oral Tablet - take 1 tablet by ORAL route every 12 hours for 10 days; 20 tablet; Refills: 0, [facility] Product Selection Permitted - Zofran 4 mg Oral Tablet - take 1 tablet by ORAL route every 12 hours As needed; 20 tablet; Refills: 0, [facility] Product Selection Permitted - dicyclomine 20 mg Oral Tablet - take 1 tablet by ORAL route 4 times per day; 28 tablet; Refills: 0, Product [facility] Selection Permitted Signatures: Dispatcher [employer] EDPepe Mclaughlin MD MD cha Smirch, Shelby RN RN Kamar Agee RN RN mb8 Corrections: (The following items were deleted from the chart) 10:41 09:46 Abdomen ordered. EDMD EDMS
--- NOTE | 2022-06-23 11:16 | ER ---
Nurse's Notes [facility] Name: Mary Ortega Age: 72 yrs Sex: Female : 1950 Arrival Date: 06/23/2022 Time: 08:28 Bed 8 Private MD: Diagnosis: Epigastric abdominal tenderness;Functional dyspepsia;Diverticulosis of intestine, part unspecified, without perforation or abscess without bleeding Presentation: 06/23 08:40 Chief complaint: Patient states: epigastric burning with nausea that began this ss morning. Pt's reports that patient has been here multiple times for this same complaint. Pt reports she was recently diagnosed with the flu. Coronavirus screen: Client denies travel out of the [place] in the last 14 days. Ebola Screen: Patient denies exposure to infectious person. Patient denies travel to an Ebola-affected area in the 21 days before illness onset. Initial Sepsis Screen: Does the patient meet any 2 criteria? No. Patient's initial sepsis screen is negative. Does the patient have a suspected source of infection? No. Patient's initial sepsis screen is negative. Risk Assessment: Do you want to hurt yourself or someone else? Patient reports no desire to harm self or others. Onset of symptoms was June 23, 2022. 08:40 Method Of Arrival: Ambulatory ss 08:40 Acuity: MYKE 3 ss Triage Assessment: 08:45 General: Appears in no apparent distress. Behavior is calm, cooperative, appropriate mb8 for age, quiet. Historical: - Allergies: 08:55 No Known Allergies; ss - Home Meds: 08:55 lisinopril 20 mg Oral tab 1 tab once daily [Active]; omeprazole 20 mg Oral cpDR 1 cap ss once daily [Active]; - PMHx: 08:55 Back pain; Chronic back and neck pain; Hyperlipidemia; Hypertension; ss - PSHx: 08:55 hysterectomy; ss - Immunization history:: Client reports receiving the 2nd dose of the Covid vaccine. - Social history:: Smoking status: Patient denies any tobacco usage or history of. - Family history:: not pertinent. Screenin:48 Abuse screen: Denies threats or abuse. Denies injuries from another. Nutritional mb8 screening: No deficits noted. Tuberculosis screening: No symptoms or risk factors identified. Fall Risk No fall in past 12 months (0 pts). Secondary diagnosis (15 points) No IV (0 pts). Ambulatory Aid- Crutches/Cane/Walker (15 pts). Gait- Normal/Bed Rest/Wheelchair (0 pts) Mental Status- Oriented to own ability (0 pts). Total Pruitt Fall Scale indicates Low Risk Score (25-44 pts). Fall prevention measures have been instituted. Side Rails Up X 2 Family Present and informed to notify staff if they need to leave bedside As available Patient and Family Educated on Fall Prevention Program and strategies. Assessment: 08:45 Pain: Complains of pain in diaphragm Pain does not radiate. Pain currently is 6 out of mb8 10 on a pain scale. Noted to be quiet/stoic. GI: Abdomen is flat, non-distended, Bowel sounds present X 4 quads. Abd is soft and non tender Reports upper abdominal pain, nausea, Patient currently denies diarrhea, vomiting. : No deficits noted. 10:25 General: Patient in imaging at this time. mb8 Vital Signs: 08:40 BP 170 / 97; Pulse 97; Resp 17; Temp 98.6(O); Pulse Ox 100% on R/A; Weight 68.04 kg; ss Height 5 ft. 5 in. (165.10 cm); Pain 10/10; 09:17 BP 155 / 91; Pulse 91; Resp 16; Pulse Ox 97% ; Pain 6/10; mb8 09:45 BP 158 / 97; Pulse 88; Resp 16; Pulse Ox 98% ; Pain 6/10; mb8 10:50 BP 173 / 99; Pulse 88; Resp 16; Pulse Ox 97% on R/A; Pain 5/10; mb8 08:40 Body Mass Index 24.96 (68.04 kg, 165.10 cm) ED Course: 08:28 Patient arrived in ED. mr 08:30 Pepe Anthony MD is Attending Physician. [facility] 08:45 Patient has correct armband on for positive identification. Placed in gown. Bed in low mb8 position. Call light in reach. Side rails up X2. 08:48 Kamar Sanchez, SU is Primary Nurse. mb8 08:55 Triage completed. 08:55 Arm band placed on right wrist. 08:56 Initial lab(s) drawn, by me, sent to lab. Inserted saline lock: 20 gauge in left mb8 antecubital area, using aseptic technique. Blood collected. 08:59 Urine collected: clean catch specimen, clear, Amount Voided: 100mL. mb8 09:01 XRAY Chest (1 view) In Process Unspecified. EDMS 09:02 No provider procedures requiring assistance completed. mb8 10:34 US Abdomen Limited In Process Unspecified. EDMS 10:45 Patient moved back from radiology. mb8 10:46 Abdomen In Process Unspecified. EDMS 11:14 Alicia Zhang MD is Referral Physician. kathleen 11:39 IV discontinued, intact, bleeding controlled, No redness/swelling at site. Pressure mb8 dressing applied. Administered Medications: 09:00 Drug: NS 0.9% 500 ml Route: IV; Rate: bolus; Site: left antecubital; mb8 09:30 Follow up: IV Status: Completed infusion mb8 09:00 Drug: NS 0.9% 1000 ml Route: IV; Rate: 125 ml/hr; Site: left antecubital; mb8 11:30 Follow up: IV Status: Completed infusion mb8 10:45 Drug: Pepcid (famotidine) 20 mg Route: IVP; Site: left antecubital; mb8 11:39 Follow up: Response: No adverse reaction; Pain is decreased mb8 10:47 Drug: fentaNYL (PF) 25 mcg Route: IVP; Site: left antecubital; mb8 11:38 Follow up: Response: No adverse reaction; Pain is decreased; RASS: Alert and Calm (0) mb8 10:49 Drug: Zofran (Ondansetron) 4 mg Route: IVP; Site: left antecubital; mb8 11:38 Follow up: Response: No adverse reaction mb8 11:38 Not Given (Patient Refused): fentaNYL (PF) 25 mcg IVP once mb8 Medication: 08:48 VIS not applicable for this client. mb8 Outcome: 11:15 Discharge ordered by . kathleen 11:39 Discharged to home via wheelchair, with significant other. mb8 11:39 Condition: stable 11:39 Discharge instructions given to patient, family, Instructed on discharge instructions, follow up and referral plans. medication usage, Demonstrated understanding of instructions, follow-up care, medications, Prescriptions given X 3. 11:41 Patient left the ED. mb8 Signatures: Dispatcher [employer] EDPepe Mclaughlin MD MD cha Rivera, Mary mr Nicole Weeks, SU RN Kamar Agee RN RN mb8 Corrections: (The following items were deleted from the chart) 09:00 Pain: Complains of pain in diaphragm Pain does not radiate. Pain currently is 6 mb8 out of 10 on a pain scale. Noted to be quiet/stoic, mb8 : 09:00 GI: Abdomen is flat, non-distended, Bowel sounds present X 4 quads. Abd is soft mb8 and non tender Reports upper abdominal pain, nausea, Patient currently denies diarrhea, vomiting, mb8 : 09:00 : No deficits noted. mb8 mb8
[2022-06-23 11:52] VITALS: TEMP 98.6
[2022-06-23 12:09] VITALS: BP 173/99; O2SAT 97
== END 2022-06-23 11:41 | disposition home or self-care (01) ==
LOC: ER 08:24
DX: K30 Functional dyspepsia (principal); K57.90 Diverticulosis of intestine, part unspecified, without perforation or abscess without bleeding; E78.5 Hyperlipidemia, unspecified; I10 Essential (primary) hypertension
CPT/HCPCS: 96361; 87088; 85025; 87086; 80048; 36415; 83735; 85610; 80076; 84484; 83690; 83880; 74176; 71045; 76705; 96375; 96374; 99284; J3010; J7030; J2405; 81003; 81015

== ENCOUNTER 2023-04-18 08:56 | Emergency (ER) | payer OTHER ==
--- OUTSIDE RECORDS SUMMARY | 2023-04-18 09:05 | XMS REPORT | Continuity of Care Document ---
:1950 Author Organization [facility] t Address [address] [place] [id number] Care Team Providers Name Role Phone Cristina Choe MD Primary Care Physician CRISTINA CHOE Attending Clinician Unavailable CRISTINA CHOE Attending Clinician Unavailable TATIANA ROBLES Attending Clinician Unavailable TATIANA ROBLES Attending Clinician Unavailable Lab, Ang - Db Attending Clinician Unavailable Doctor Unassigned, [place] Attending Clinician Unavailable Minh Sherman MD Attending Clinician MINH SHERMAN Attending Clinician Unavailable ROSI ALEXANDRE Attending Clinician Unavailable Tray Jackson Attending Clinician TRAY ABBOTT Attending Clinician Unavailable BEATRIZ FISCHER Attending Clinician Unavailable ROBERT KAMARA Attending Clinician Unavailable ROB GROSS Attending Clinician Unavailable Payers Payer Name Policy Type Policy Number Effective Date Expiration Date S mychal [employer]MA[employer] GOLD [facility] [id number] 2020 HMO 00:00:00 [employer] MEDICARE 7 [id number] 2022 [id number] GOLD 00:00:00 PLUS 2021 Problems Condition Condition Condition Status Onset Resolution Last Treating Co mments Source Name Details Category Date Date Treatment Clinician Date Encounter Encounter Disease Active Overview: Univers for for 12-07 Formattin ity of screening screening 00:00: [place] colonoscop colonoscop 00 note Me dical y y might be Branch different from the original. Added automatic ally from request for surgery [id number] Bilateral Bilateral Disease Active Uni vers foot pain foot pain 6-06 ity of 00:00: [place] [facility] Reflux Reflux Disease Active 2016-09 Overview: Univer s esophagiti esophagiti 2-13 Formattin ity of s s 00:00: g of this note Medical might be Branch different from the original. Added automatic ally from request for surgery [id number] S/P total S/P total Disease Active 2016-09 Uni vers hysterecto hysterecto 0-30 it y of my and BSO [place] 00:[place] (bilateral (bilateral 00 Me dical salpingo-o salpingo-o Br anch ophorectom ophorectom y) y) Breast Breast Disease Active 2016-09 Univers pain, pain, 0-23 ity of right right 00:00: Medical Branch History of History of Disease Active 2016-09 U nancy colon colon 0-23 ity of polyps polyps 00:00: Medical Branch Breast Breast Disease Active 2016-09 Univers pain, pain, 0-23 ity of right right 00:00: Medical Branch Abnormal Abnormal Disease Active 2016-09 Overview: [place] ultrasound ultrasound 0-19 Formattin ity of of breast of breast 00:00: [place] of [place] 00 note Medical might be Branch different from the original. Edema, ductal dilation, and multiple small cysts; 3 month f/u recommend ed. Uterine Uterine Disease Active 2016-09 Overview: Univ ers procidenti procidenti 0-04 Formattin ity of a a 00:00: g of this note Medical might be Branch different from the original. Added automatic ally from request for surgery [id number] Prediabete Prediabete Disease Active U nivers s s 9-07 ity of 00:00: [place] [facility] Abnormal Abnormal Disease Active Unive rs EKG EKG 5-25 ity of 00:00: Medical Branch Chest Chest Disease Active Univers pain, pain, 5-25 ity of unspecifie unspecifie 00:[place] d type d type 00 [facility] Palpitatio Palpitatio Disease Active U joelers ns ns 5-25 ity of 00:00: Medical Branch Spinal Spinal Disease Active 2015-09 Univers arthritis arthritis 0-21 ity of 00:00: [place] 00 Medical Branch Patient is Patient is Disease Active U nivers Naseem's Naseem's 906 ity of Witness Witness 00:00: [place] [facility] Branch Colon Colon Disease Active Univers polyps polyps 8-05 ity of 00:00: [place] [facility] Chronic Chronic Disease Active Overview: Univ ers neck and neck and 8-05 Formattin ity of back pain back pain 00:00: [place] of this [place] 00 note Medical might be Branch different from the original. Neck and lower back Prolapse Prolapse Disease Active Unive rs of female of female 805 ity of pelvic pelvic 00:00: [place] organs organs [facility] Branch Anxiety Anxiety Disease Active Univers 8-05 ity of 00:00: [place] [facility] Chronic Chronic Disease Active Univers insomnia insomnia 8-05 ity of 00:00: [place] [facility] Microscopi Microscopi Disease Active U nivers c c 8-05 ity of hematuria hematuria 00:[place] [facility] Depression Depression Disease Active U nivers 8-05 ity of 00:00: [place] [facility] Branch Diverticul Diverticul Disease Active U nivers osis osis 8-05 ity of 00:00: [place] [facility] Mixed Mixed Disease Active Univers hyperlipid hyperlipid 2-20 it y of emia emia 00:00: [place] [facility] Hypertensi Hypertensi Disease Active U nivers on on 2-20 ity of 00:00: [place] [facility] Allergies, Adverse Reactions, Alerts Allergy Allergy Status Severity Reaction(s) Onset Inactive Treating Comm ents Source Name Type Date Date Clinician NO KNOWN Drug Active Univers ALLERGIE Class ity of S [facility] Social History Social Habit Start Date Stop Date Quantity Comments Source Exposure to 2022-12-30 2023-01-09 Not sure [facility] SARS-CoV-2 00:00:00 09:05:00 [facility] (event) [place] Alcohol intake 2022-12-29 2022-12-29 0 /d University of 00:00:00 00:00:00 [facility] Tobacco use and 2022-07-22 2022-07-22 Smokeless tobacco Un iversity of exposure 00:00:00 00:00:[address] [facility] Sex Ass[birth year] At [birth year] Universit y of 00:00:00 00:00:00 [facility] Smoking Status Start Date Stop Date Source Never smoked tobacco [facility] Medications Ordered Filled Start Stop Current Ordering Indication Dosage Frequency Signature Comments Components Source Medication Medication Date Date Medication? Clinician (SIG) Name Name omeprazole Yes [id number] 40mg Take 1 U nivers 40 mg 4-27 capsule by ity of capsule 00:00: mouth 00 daily. Medical Branch sucralfate Yes [id number] 1g Take 1 U nivers 1 gram 4-27 tablet by ity of tablet 00:00: mouth (chi [facility]) Medical [facility] daily. polyethylen Yes [id number] 1{packe Take 1 Univers e glycol 4-27 t} Packet by ity of 3350 17 00:00: [place] gram powder 00 daily as Medi guru needed for Branch Constipati on. omeprazole Yes [id number] 40mg Take 1 U nivers 40 mg 4-27 capsule by ity of capsule 00:00: mouth 00 daily. Medical Branch sucralfate Yes [id number] 1g Take 1 U nivers 1 gram 4-27 tablet by ity of tablet 00:00: mouth (chi [facility]) Medical [facility] daily. polyethylen 2022-0 Yes [id number] 1{packe Take 1 Univers e glycol 4-27 t} Packet by ity of 3350 17 00:00: mouth [place] gram powder 00 daily as Medi guru needed for Branch Constipati on. omeprazole 2022-0 Yes [id number] 40mg Take 1 U nivers 40 mg 4-27 capsule by ity of capsule 00:00: mouth 00 daily. Medical Branch sucralfate 0 Yes [id number] 1g Take 1 U nivers 1 gram 4-27 tablet by ity of tablet 00:00: mouth 4 (four) Medical times [place] daily. polyethylen 2022-0 Yes [id number] 1{packe Take 1 Univers e glycol 4-27 t} Packet by ity of 3350 17 00:00: mouth [place] gram powder 00 daily as Medi guru needed for Branch Constipati on. omeprazole 2022-0 Yes [id number] 40mg Take 1 U nivers 40 mg 4-27 capsule by ity of capsule 00:00: mouth 00 daily. Medical Branch sucralfate 2022-0 Yes [id number] 1g Take 1 U nivers 1 gram 4-27 tablet by ity of tablet 00:00: mouth (four) Medical times [place] daily. polyethylen 2022-0 Yes [id number] 1{packe Take 1 Univers e glycol 4-27 t} Packet by ity of 3350 17 00:00: mouth [place] gram powder 00 daily as Medi guru needed for Branch Constipati on. omeprazole 2022-0 Yes [id number] 40mg Take 1 U nivers 40 mg 4-27 capsule by ity of capsule 00:00: mouth 00 daily. Medical Branch sucralfate 2022-0 Yes [id number] 1g Take 1 U nivers 1 gram 4-27 tablet by ity of tablet 00:00: mouth (chi [facility]) Medical times [place] daily. polyethylen 2022-0 Yes [id number] 1{packe Take 1 Univers e glycol 4-27 t} Packet by ity of 3350 17 00:00: mouth [place] gram powder 00 daily as Medi guru needed for Branch Constipati on. omeprazole 2022-0 Yes [id number] 40mg Take 1 U nivers 40 mg 4-27 capsule by ity of capsule 00:00: mouth daily. Medical Branch sucralfate 2022-0 Yes [id number] 1g Take 1 U nivers 1 gram 4-27 tablet by ity of tablet 00:00: mouth (chi [facility]) Medical times [place] daily. polyethylen 2022-0 Yes [id number] 1{packe Take 1 Univers e glycol 4-27 t} Packet by ity of 3350 17 00:00: mouth [place] gram powder 00 daily as Medi guru needed for Branch Constipati on. omeprazole 2022-0 Yes [id number] 40mg Take 1 U nivers 40 mg 4-27 capsule by ity of capsule 00:00: mouth 00 daily. Medical Branch sucralfate 2022-0 Yes [id number] 1g Take 1 U nivers 1 gram 4-27 tablet by ity of tablet 00:00: mouth (four) Medical times Branch daily. polyethylen 2022-0 Yes [id number] 1{packe Take 1 Univers e glycol 4-27 t} Packet by ity of 3350 17 00:00: mouth [place] gram powder 00 daily as Medi guru needed for Branch Constipati on. omeprazole 2022-0 Yes [id number] 40mg Take 1 U nivers 40 mg 4-27 capsule by ity of capsule 00:00: mouth 00 daily. Medical Branch sucralfate 2022-0 Yes [id number] 1g Take 1 U nivers 1 gram 4-27 tablet by ity of tablet 00:00: mouth (four) Medical times Branch daily. polyethylen 2022-0 Yes [id number] 1{packe Take 1 Univers e glycol 4-27 t} Packet by ity of 3350 17 00:00: mouth once [place] gram powder 00 daily as Medi guru needed for Branch Constipati on. omeprazole 2022-0 Yes [id number] 40mg Take 1 U nivers 40 mg 4-27 capsule by ity of capsule 00:00: mouth 00 daily. Medical Branch sucralfate 2022-0 Yes [id number] 1g Take 1 U nivers 1 gram 4-27 tablet by ity of tablet 00:00: mouth (four) Medical times Branch daily. polyethylen 2022-0 Yes [id number] 1{packe Take 1 Univers e glycol 4-27 t} Packet by ity of 3350 17 00:00: mouth once [place] gram powder 00 daily as Medi guru needed for Branch Constipati on. omeprazole 2022-0 Yes [id number] 40mg Take 1 U nivers 40 mg 4-27 capsule by ity of capsule 00:00: mouth 00 daily. Medical Branch sucralfate 2022-0 Yes [id number] 1g Take 1 U nivers 1 gram 4-27 tablet by ity of tablet 00:00: mouth 4 (four) Medical times Branch daily. polyethylen 3-0 Yes [id number] 1{packe Take 1 Univers e glycol 4-27 t} Packet by ity of 3350 17 00:00: mouth once [place] gram powder 00 daily as Medi guru needed for Branch Constipati on. omeprazole 2022-0 Yes [id number] 40mg Take 1 U nivers 40 mg 4-27 capsule by ity of capsule 00:00: mouth daily. Medical Branch sucralfate 2022-0 Yes [id number] 1g Take 1 U nivers 1 gram 4-27 tablet by ity of tablet 00:00: mouth (chi [facility]) Medical times [place] daily. polyethylen 2022-0 Yes [id number] 1{packe Take 1 Univers e glycol 4-27 t} Packet by ity of 3350 17 00:00: mouth once [place] gram powder 00 daily as Medi guru needed for Branch Constipati on. omeprazole 2022-0 Yes [id number] 40mg Take 1 U nivers 40 mg 4-27 capsule by ity of capsule 00:00: mouth daily. Medical Branch sucralfate 2022-0 Yes [id number] 1g Take 1 U nivers 1 gram 4-27 tablet by ity of tablet 00:00: mouth (chi [facility]) Medical times [place] daily. polyethylen 2022-0 Yes [id number] 1{packe Take 1 Univers e glycol 4-27 t} Packet by ity of 3350 17 00:00: mouth once [place] gram powder 00 daily as Medi guru needed for Branch Constipati on. omeprazole 2022-0 Yes [id number] 40mg Take 1 U nivers 40 mg 4-27 capsule by ity of capsule 00:00: mouth daily. Medical Branch sucralfate 2022-0 Yes [id number] 1g Take 1 U nivers 1 gram 4-27 tablet by ity of tablet 00:00: mouth (four) Medical times [place] daily. polyethylen 2022-0 Yes [id number] 1{packe Take 1 Univers e glycol 4-27 t} Packet by ity of 3350 17 00:00: mouth once [place] gram powder 00 daily as Medi guru needed for Branch Constipati on. peg-electro 2022-0 2023- No 4000mL Take 4,000 Univers lyte soln 4-04 04-05 mL by ity of 236-22.74-6 00:00: 04:59 mouth once [place] .74 -5.86 00 :00 now for 1 Medic al gram dose. Branch solution atorvastati 2022-0 Yes [id number] 40mg Take 1 Univers n 40 mg 2-21 tablet by ity of tablet 00:00: mouth at [place] 00 bedtime. Medical Branch lisinopriL 2022-0 Yes [id number] 20mg Take 1 U nivers 20 mg 2-21 tablet by ity of tablet 00:00: mouth [place] 00 daily. Medical Branch Blood 2022-0 Yes [id number] Use as Univer s Pressure 2-21 directed ity of Monitor 00:00: twice [place] (BLOOD 00 daily to [facility] PRESSURE check [place] KIT) Kit blood pressure. atorvastati 2022-0 Yes [id number] 40mg Take 1 Univers n 40 mg 2-21 tablet by ity of tablet 00:00: mouth at [place] 00 bedtime. Medical Branch lisinopriL 2022-0 Yes [id number] 20mg Take 1 U nivers 20 mg 2-21 tablet by ity of tablet 00:00: mouth [place] 00 daily. Medical Branch Blood 2022-0 Yes [id number] Use as Univer s Pressure 2-21 directed ity of Monitor 00:00: twice [place] (BLOOD 00 daily to Medical PRESSURE check [place] KIT) Kit blood pressure. atorvastati 2022-0 Yes [id number] 40mg Take 1 Univers n 40 mg 2-21 tablet by ity of tablet 00:00: mouth at [place] 00 bedtime. Medical Branch lisinopriL 2022-0 Yes [id number] 20mg Take 1 U nivers 20 mg 2-21 tablet by ity of tablet 00:00: mouth [place] 00 daily. Medical Branch Blood 2022-0 Yes [id number] Use as Univer s Pressure 2-21 directed ity of Monitor 00:00: twice [place] (BLOOD 00 daily to Medical PRESSURE check [place] KIT) Kit blood pressure. atorvastati 2022-0 Yes [id number] 40mg Take 1 Univers n 40 mg 2-21 tablet by ity of tablet 00:00: mouth at [place] 00 bedtime. Medical Branch lisinopriL 2022-0 Yes [id number] 20mg Take 1 U nivers 20 mg 2-21 tablet by ity of tablet 00:00: mouth [place] 00 daily. Medical Branch Blood 2022-0 Yes [id number] Use as Univer s Pressure 2-21 directed ity of Monitor 00:00: twice [place] (BLOOD 00 daily to Medical PRESSURE check Branch KIT) Kit blood pressure. atorvastati 2022-0 Yes [id number] 40mg Take 1 Univers n 40 mg 2-21 tablet by ity of tablet 00:00: mouth at [place] 00 bedtime. Medical Branch lisinopriL 2022-0 Yes [id number] 20mg Take 1 U nivers 20 mg 2-21 tablet by ity of tablet 00:00: mouth [place] 00 daily. Medical Branch Blood 2022-0 Yes [id number] Use as Univer s Pressure 2-21 directed ity of Monitor 00:00: twice [place] (BLOOD 00 daily to Medical PRESSURE check Branch KIT) Kit blood pressure. atorvastati 2022-0 Yes [id number] 40mg Take 1 Univers n 40 mg 2-21 tablet by ity of tablet 00:00: mouth at [place] 00 bedtime. Medical Branch lisinopriL 2022-0 Yes [id number] 20mg Take 1 U nivers 20 mg 2-21 tablet by ity of tablet 00:00: mouth [place] 00 daily. Medical Branch Blood 2022-0 Yes [id number] Use as Univer s Pressure 2-21 directed ity of Monitor 00:00: twice [place] (BLOOD 00 daily to Medical PRESSURE check Branch KIT) Kit blood pressure. atorvastati 2022-0 Yes [id number] 40mg Take 1 Univers n 40 mg 2-21 tablet by ity of tablet 00:00: mouth at [place] 00 bedtime. Medical Branch lisinopriL 2022-0 Yes [id number] 20mg Take 1 U nivers 20 mg 2-21 tablet by ity of tablet 00:00: mouth [place] 00 daily. Medical Branch Blood 2022-0 Yes [id number] Use as Univer s Pressure 2-21 directed ity of Monitor 00:00: twice [place] (BLOOD 00 daily to Medical PRESSURE check Branch KIT) Kit blood pressure. atorvastati 2022-0 Yes [id number] 40mg Take 1 Univers n 40 mg 2-21 tablet by ity of tablet 00:00: mouth at [place] 00 bedtime. Medical Branch lisinopriL 2022-0 Yes [id number] 20mg Take 1 U nivers 20 mg 2-21 tablet by ity of tablet 00:00: mouth [place] 00 daily. Medical Branch Blood 2022-0 Yes [id number] Use as Univer s Pressure 2-21 directed ity of Monitor 00:00: twice [place] (BLOOD 00 daily to Medical PRESSURE check Branch KIT) Kit blood pressure. atorvastati 2022-0 Yes [id number] 40mg Take 1 Univers n 40 mg 2-21 tablet by ity of tablet 00:00: mouth at [place] 00 bedtime. Medical Branch lisinopriL 2022-0 Yes [id number] 20mg Take 1 U nivers 20 mg 2-21 tablet by ity of tablet 00:00: mouth [place] 00 daily. Medical Branch Blood 2022-0 Yes [id number] Use as Univer s Pressure 2-21 directed ity of Monitor 00:00: twice [place] (BLOOD 00 daily to Medical PRESSURE check Branch KIT) Kit blood pressure. atorvastati 2022-0 Yes [id number] 40mg Take 1 Univers n 40 mg 2-21 tablet by ity of tablet 00:00: mouth at [place] 00 bedtime. Medical Branch lisinopriL 2022-0 Yes [id number] 20mg Take 1 U nivers 20 mg 2-21 tablet by ity of tablet 00:00: mouth [place] 00 daily. Medical Branch Blood 2022-0 Yes [id number] Use as Univer s Pressure 2-21 directed ity of Monitor 00:00: twice [place] (BLOOD 00 daily to Medical PRESSURE check Branch KIT) Kit blood pressure. atorvastati 2022-0 Yes [id number] 40mg Take 1 Univers n 40 mg 2-21 tablet by ity of tablet 00:00: mouth at [place] 00 bedtime. Medical Branch lisinopriL 2022-0 Yes [id number] 20mg Take 1 U nivers 20 mg 2-21 tablet by ity of tablet 00:00: mouth [place] 00 daily. Medical Branch Blood 2022-0 Yes [id number] Use as Univer s Pressure 2-21 directed ity of Monitor 00:00: twice [place] (BLOOD 00 daily to Medical PRESSURE check Branch KIT) Kit blood pressure. atorvastati 2022-0 Yes [id number] 40mg Take 1 Univers n 40 mg 2-21 tablet by ity of tablet 00:00: mouth at [place] 00 bedtime. Medical Branch lisinopriL 2022-0 Yes [id number] 20mg Take 1 U nivers 20 mg 2-21 tablet by ity of tablet 00:00: mouth [place] 00 daily. Medical Branch Blood 2022-0 Yes [id number] Use as Univer s Pressure 2-21 directed ity of Monitor 00:00: twice [place] (BLOOD 00 daily to Medical PRESSURE check Branch KIT) Kit blood pressure. atorvastati 2022-0 Yes [id number] 40mg Take 1 Univers n 40 mg 2-21 tablet by ity of tablet 00:00: mouth at [place] 00 bedtime. Medical Branch lisinopriL 2022-0 Yes [id number] 20mg Take 1 U nivers 20 mg 2-21 tablet by ity of tablet 00:00: mouth [place] 00 daily. Medical Branch Blood 2022-0 Yes [id number] Use as Univer s Pressure 2-21 directed ity of Monitor 00:00: twice [place] (BLOOD 00 daily to Medical PRESSURE check Branch KIT) Kit blood pressure. atorvastati 2022-0 Yes [id number] 40mg Take 1 Univers n 40 mg 2-21 tablet by ity of tablet 00:00: mouth at [place] 00 bedtime. Medical Branch lisinopriL 2022-0 Yes [id number] 20mg Take 1 U nivers 20 mg 2-21 tablet by ity of tablet 00:00: mouth [place] 00 daily. Medical Branch Blood 2022-0 Yes [id number] Use as Univer s Pressure 2-21 directed ity of Monitor 00:00: twice [place] (BLOOD 00 daily to Medical PRESSURE check Branch KIT) Kit blood pressure. atorvastati 2022-0 Yes [id number] 40mg Take 1 Univers n 40 mg 2-21 tablet by ity of tablet 00:00: mouth at [place] 00 bedtime. Medical Branch lisinopriL 2022-0 Yes [id number] 20mg Take 1 U nivers 20 mg 2-21 tablet by ity of tablet 00:00: mouth [place] 00 daily. Medical Branch Blood 2022-0 Yes [id number] Use as Univer s Pressure 2-21 directed ity of Monitor 00:00: twice [place] (BLOOD 00 daily to Medical PRESSURE check Branch KIT) Kit blood pressure. atorvastati 2022-0 Yes [id number] 40mg Take 1 Univers n 40 mg 2-21 tablet by ity of tablet 00:00: mouth at [place] 00 bedtime. Medical Branch lisinopriL 2022-0 Yes [id number] 20mg Take 1 U nivers 20 mg 2-21 tablet by ity of tablet 00:00: mouth [place] 00 daily. Medical Branch Blood 2022-0 Yes [id number] Use as Univer s Pressure 2-21 directed ity of Monitor 00:00: twice [place] (BLOOD 00 daily to Medical PRESSURE check Branch KIT) Kit blood pressure. atorvastati 2022-0 Yes [id number] 40mg Take 1 Univers n 40 mg 2-21 tablet by ity of tablet 00:00: mouth at [place] 00 bedtime. Medical Branch lisinopriL 2022-0 Yes [id number] 20mg Take 1 U nivers 20 mg 2-21 tablet by ity of tablet 00:00: mouth [place] 00 daily. Medical Branch Blood 2022-0 Yes [id number] Use as Univer s Pressure 2-21 directed ity of Monitor 00:00: twice [place] (BLOOD 00 daily to Medical PRESSURE check Branch KIT) Kit blood pressure. atorvastati 2022-0 Yes [id number] 40mg Take 1 Univers n 40 mg 2-21 tablet by ity of tablet 00:00: mouth at [place] 00 bedtime. Medical Branch lisinopriL 2022-0 Yes [id number] 20mg Take 1 U nivers 20 mg 2-21 tablet by ity of tablet 00:00: mouth [place] 00 daily. Medical Branch Blood 2022-0 Yes [id number] Use as Univer s Pressure 2-21 directed ity of Monitor 00:00: twice [place] (BLOOD 00 daily to Medical PRESSURE check Branch KIT) Kit blood pressure. atorvastati 2022-0 Yes [id number] 40mg Take 1 Univers n 40 mg 2-21 tablet by ity of tablet 00:00: mouth at [place] 00 bedtime. Medical Branch lisinopriL 2022-0 Yes [id number] 20mg Take 1 U nivers 20 mg 2-21 tablet by ity of tablet 00:00: mouth [place] 00 daily. Medical Branch Blood 2022-0 Yes [id number] Use as Univer s Pressure 2-21 directed ity of Monitor 00:00: twice [place] (BLOOD 00 daily to Medical PRESSURE check Branch KIT) Kit blood pressure. benzonatate 2021-09 Yes [id number] 200mg Take 1 Univers 200 mg 2-12 capsule by ity of capsule 00:00: mouth 3 [place] 00 (three) Medical times Branch daily as needed for Cough. promethazin 2021-09 Yes [id number] 5mL Take 5 mL Univers e-dextromet 2-12 by mouth 4 it y of horphan 00:00: (four) [place] 6.25-15 00 times Medical mg/5 mL daily as Branch syrup needed for Cough. benzonatate 2021-09 Yes [id number] 200mg Take 1 Univers 200 mg 2-12 capsule by ity of capsule 00:00: mouth 3 [place] 00 (three) Medical times Branch daily as needed for Cough. promethazin 2021-09 Yes [id number] 5mL Take 5 mL Univers e-dextromet 2-12 by mouth 4 it y of horphan 00:00: (four) [place] 6.25-15 00 times Medical mg/5 mL daily as Branch syrup needed for Cough. benzonatate 2021-09 Yes [id number] 200mg Take 1 Univers 200 mg 2-12 capsule by ity of capsule 00:00: mouth 3 [place] 00 (three) Medical times Branch daily as needed for Cough. promethazin 2021-09 Yes [id number] 5mL Take 5 mL Univers e-dextromet 2-12 by mouth 4 it y of horphan 00:00: (four) [place] 6.25-15 00 times Medical mg/5 mL daily as Branch syrup needed for Cough. benzonatate 2021-09- No [id number] 200mg Take 1 Univers 200 mg 2-12 01-20 capsule by ity of capsule 00:00: 00:00 mouth 3 [place] 00 :00 (three) Medical times Branch daily as needed for Cough. promethazin 2021-09- No [id number] 5mL Take 5 mL Univers e-dextromet 2-12 01-20 by mouth 4 i ty of horphan 00:00: 00:00 (four) [place] 6.25-15 00 :00 times Medical mg/5 mL daily as Branch syrup needed for Cough. benzonatate 2021-09- No [id number] 200mg Take 1 Univers 200 mg 2-12 01-20 capsule by ity of capsule 00:00: 00:00 mouth 3 [place] 00 :00 (three) Medical times Branch daily as needed for Cough. promethazin 2021-09- No [id number] 5mL Take 5 mL Univers e-dextromet 2-12 01-20 by mouth 4 i ty of horphan 00:00: 00:00 (four) [place] 6.25-15 00 :00 times Medical mg/5 mL daily as Branch syrup needed for Cough. omeprazole 2021-09 Yes [id number] 20mg Take 1 Univers 20 mg 1-23 capsule by ity of capsule 00:00: mouth 2 [place] (two) Medical times Branch daily. doxycycline 2021-09 Yes [id number] 100mg Take 1 Univers hyclate 100 1-23 tablet by ity of mg tablet 00:00: mouth 2 [place] (two) Medical times Branch daily. omeprazole 2021-09 Yes [id number] 20mg Take 1 Univers 20 mg 1-23 capsule by ity of capsule 00:00: mouth 2 [place] (two) Medical times Branch daily. doxycycline 2021-09 Yes [id number] 100mg Take 1 Univers hyclate 100 1-23 tablet by ity of mg tablet 00:00: mouth 2 [place] (two) Medical times Branch daily. omeprazole 2021-09 Yes [id number] 20mg Take 1 Univers 20 mg 1-23 capsule by ity of capsule 00:00: mouth 2 [place] (two) Medical times Branch daily. doxycycline 2021-09 Yes [id number] 100mg Take 1 Univers hyclate 100 1-23 tablet by ity of mg tablet 00:00: mouth 2 [place] (two) Medical times Branch daily. omeprazole 2021-09 Yes [id number] 20mg Take 1 Univers 20 mg 1-23 capsule by ity of capsule 00:00: mouth [address] [place] [address] (two) Medical times Branch daily. doxycycline 2021-09 Yes [id number] 100mg Take 1 Univers hyclate 100 1-23 tablet by ity of mg tablet 00:00: mouth 2 [place] (two) Medical times Branch daily. omeprazole 2021-09- No [id number] 20mg Take 1 [facility] 20 mg 1-23 01-20 capsule by [facility] capsule 00:00: 00:00 mouth 2 [place] 00 :00 (two) Medical times Branch daily. doxycycline 2021-09- No [id number] 100mg Take 1 [facility] hyclate 100 1-23 01-20 tablet by it y [facility] mg tablet 00:00: 00:[place] mouth 2 [place] :[place] (two[place] [facility] times [facility] daily. omeprazole 2021-09- No [id number] 20mg Take 1 [facility] 20 mg 09-2620 capsule by [facility] capsule 00:00: 00:00 mouth 2 [place] 00 :00 (two) Medical times Branch daily. doxycycline 2021-09- No [id number] 100mg Take 1 [facility] hyclate 100 09-2620 tablet by it y [facility] mg tablet 00:00: 00:00 mouth 2 [place] :[place] (two[place] [facility] times [facility] daily. metroNIDAZO 2021-09- No [id number] 250mg Take 1 [facility] LE 250 mg 09-26 12-04 tablet by [facility] of tablet 00:00: 05:59 mouth 4 [place] 00 :00 (four) Medical times Branch daily for 10 days. OMEPRAZOLE 2017-09 Yes TAKE 1 [facility] 20 mg 0-29 CAPSULE BY [facility] capsule 00:00: MOUTH ONCE [place] 00 DAILY [facility] OMEPRAZOLE 2017-09 Yes TAKE 1 [facility] 20 mg 0-29 CAPSULE BY [facility] capsule 00:00: MOUTH ONCE [place] DAILY [facility] OMEPRAZOLE 2017-09 Yes TAKE 1 [facility] 20 mg 0-29 CAPSULE BY [facility] capsule 00:00: MOUTH ONCE [place] 00 DAILY [facility] OMEPRAZOLE 2017-09 Yes TAKE 1 [facility] 20 mg 0-29 CAPSULE BY [facility] capsule 00:00: MOUTH ONCE [place] 00 DAILY [facility] OMEPRAZOLE 2017-09 Yes TAKE 1 [facility] 20 mg 0-29 CAPSULE BY [facility] capsule 00:00: MOUTH ONCE [place] DAILY [facility] OMEPRAZOLE 2017-09- No TAKE 1 [facility] 20 mg 0-29 -23 CAPSULE BY [facility] of capsule 00:00: 00:00 MOUTH ONCE [place] 00 :00 DAILY Medical [facility] tiZANidine 2017- Yes [id number] TAKE 1 [facility] 2 mg tablet 9-10 TABLET BY it[facility] of 00:00: MOUTH [place] 00 EVERY 8 Medical HOURS Branch NEEDED FOR MUSCLE PAIN OR SPASMS benzonatate 2017- Yes 200mg Take 1 [facility] vers 200 mg 9-10 capsule by [facility] of capsule 00:00: mouth 3 00 (three) Medical times Branch daily as needed for Cough. fluticasone Yes 2{spray Use 2 [facility] 50 9-10 } Sprays in [facility] of mcg/actuati 00:00: each [place] on nasal 00 nostril Medical spray daily. Branch tiZANidine 2018-0 Yes [id number] TAKE 1 [facility] 2 mg tablet 9-10 TABLET BY it[facility] of 00:00: MOUTH [place] 00 EVERY 8 Medical HOURS Branch NEEDED FOR MUSCLE PAIN OR SPASMS benzonatate 2018-0 Yes 200mg Take 1 [facility] vers 200 mg 9-10 capsule by [facility] of capsule 00:00: mouth 3 [place] 00 (three) Medical times Branch daily as needed for Cough. fluticasone 2018-0 Yes 2{spray Use 2 [facility] 50 9-10 } Sprays in [facility] of mcg/actuati 00:00: each [place] on nasal 00 nostril Medical spray daily. Branch tiZANidine 2017-0 Yes [id number] TAKE 1 [facility] 2 mg tablet 9-10 TABLET BY it[facility] of 00:00: MOUTH [place] 00 EVERY 8 Medical HOURS Branch NEEDED FOR MUSCLE PAIN OR SPASMS benzonatate 2018-0 Yes 200mg Take 1 [facility] vers 200 mg 9-10 capsule by [facility] of capsule 00:00: mouth 3 [place] 00 (three) Medical times Branch daily as needed for Cough. fluticasone 2018-0 Yes 2{spray Use 2 [facility] 50 9-10 } Sprays in [facility] of mcg/actuati 00:00: each [place] on nasal 00 nostril Medical spray daily. Branch tiZANidine 2017-0 Yes [id number] TAKE 1 [facility] 2 mg tablet 9-10 TABLET BY [facility] of 00:00: MOUTH [place] 00 EVERY 8 Medical HOURS Branch NEEDED FOR MUSCLE PAIN OR SPASMS fluticasone 2018-0 Yes 2{spray Use 2 [facility] 50 9-10 } Sprays in [facility] of mcg/actuati 00:00: each [place] on nasal 00 nostril Medical spray daily. Branch tiZANidine 2018-0 Yes [id number] TAKE 1 [facility] 2 mg tablet 9-10 TABLET BY it[facility] of 00:00: MOUTH [place] 00 EVERY 8 Medical HOURS Branch NEEDED FOR MUSCLE PAIN OR SPASMS fluticasone 2018-0 Yes 2{spray Use 2 [facility] 50 9-10 } Sprays in [facility] of mcg/actuati 00:00: each [place] on nasal 00 nostril Medical spray daily. Branch tiZANidine 2018-0 Yes [id number] TAKE 1 [facility] 2 mg tablet 9-10 TABLET BY it[facility] of 00:00: MOUTH [place] 00 EVERY 8 Medical HOURS Branch NEEDED FOR MUSCLE PAIN OR SPASMS fluticasone 2017-0 Yes 2{spray Use 2 [facility] 50 9-10 } Sprays in [facility] of mcg/actuati 00:00: each [place] on nasal 00 nostril Medical spray daily. Branch fluticasone 2017-0 Yes 2{spray Use 2 [facility] 50 9-10 } Sprays in [facility] of mcg/actuati 00:00: each [place] on nasal 00 nostril Medical spray daily. Branch fluticasone 2017-0 Yes 2{spray Use 2 [facility] 50 9-10 } Sprays in [facility] of mcg/actuati 00:00: each [place] on nasal 00 nostril Medical spray daily. Branch fluticasone 2017-0 Yes 2{spray Use 2 [facility] 50 9-10 } Sprays in [facility] of mcg/actuati 00:00: each [place] on nasal 00 nostril Medical spray daily. Branch fluticasone 2017- Yes 2{spray Use 2 [facility] 50 9-10 } Sprays in [facility] of mcg/actuati 00:00: each [place] on nasal 00 nostril Medical spray daily. Branch tiZANidine 2018-0 Yes [id number] TAKE 1 [facility] 2 mg tablet 9-10 TABLET BY it[facility] of 00:00: MOUTH [place] 00 EVERY 8 Medical HOURS Branch NEEDED FOR MUSCLE PAIN OR SPASMS fluticasone 2017-0 Yes 2{spray Use 2 [facility] 50 9-10 } Sprays in [facility] of mcg/actuati 00:00: each [place] on nasal 00 nostril Medical spray daily. Branch benzonatate 2018- Yes 200mg Take 1 [facility] vers 200 mg 9-10 capsule by [facility] of capsule 00:00: mouth 3 [place] 00 (three) Medical times Branch daily as needed for Cough. fluticasone 2017- Yes 2{spray Use 2 [facility] 50 9-10 } Sprays in [facility] of mcg/actuati 00:00: each [place] on nasal 00 nostril Medical spray daily. Branch fluticasone 2017- Yes 2{spray Use 2 [facility] 50 9-10 } Sprays in [facility] of mcg/actuati 00:00: each [place] on nasal 00 nostril Medical spray daily. Branch fluticasone 2018-0 Yes 2{spray Use 2 [facility] 50 9-10 } Sprays in ity of mcg/actuati 00:00: each [place] on nasal 00 nostril Medical spray daily. Branch fluticasone 2018-0 Yes 2{spray Use 2 [facility] 50 9-10 } Sprays in [facility] of mcg/actuati 00:00: each [place] on nasal 00 nostril Medical spray daily. Branch fluticasone 2018-0 Yes 2{spray Use 2 [facility] 50 9-10 } Sprays in [facility] of mcg/actuati 00:00: each [place] on nasal 00 nostril Medical spray daily. Branch fluticasone 2018-0 Yes 2{spray Use 2 [facility] 50 9-10 } Sprays in [facility] of mcg/actuati 00:00: each [place] on nasal 00 nostril Medical spray daily. Branch fluticasone 2018-0 Yes 2{spray Use 2 [facility] 50 9-10 } Sprays in [facility] of mcg/actuati 00:00: each [place] on nasal 00 nostril Medical spray daily. Branch fluticasone 2018-0 Yes 2{spray Use 2 [facility] [place] 50 9-10 } Sprays in it[facility] of mcg/actuati 00:00: each [place] on nasal 00 nostril Medical spray daily. Branch fluticasone 2018-0 Yes 2{spray Use 2 [facility] [place] 50 9-10 } Sprays in it[facility] of mcg/actuati 00:00: each [place] on nasal 00 nostril Medical spray daily. Branch fluticasone 2018-0 Yes 2{spray Use 2 [facility] 50 9-10 } Sprays in [facility] of mcg/actuati 00:00: each [place] on nasal 00 nostril Medical spray daily. Branch fluticasone 2018-0 Yes 2{spray Use 2 [facility] 50 9-10 } Sprays in it[facility] of mcg/actuati 00:00: each [place] on nasal 00 nostril Medical spray daily. Branch fluticasone 2018-0 Yes 2{spray Use 2 [facility] 50 9-10 } Sprays in it[facility] of mcg/actuati 00:00: each [place] on nasal 00 nostril Medical spray daily. Branch fluticasone 2018-0 Yes 2{spray Use 2 [facility] 50 9-10 } Sprays in it[facility] of mcg/actuati 00:00: each [place] on nasal 00 nostril Medical spray daily. [place] tiZANidine 2017- Yes [id number] TAKE 1 [facility] 2 mg tablet 9-10 TABLET BY ity of 00:00: MOUTH [place] 00 EVERY 8 Medical HOURS Branch NEEDED FOR MUSCLE PAIN OR SPASMS benzonatate 2017- Yes 200mg Take 1 [facility] vers 200 mg 9-10 capsule by [facility] of capsule 00:00: mouth 3 [place] 00 (three) Medical times Branch daily as needed for Cough. fluticasone Yes 2{spray Use 2 [facility] 50 9-10 } Sprays in it[facility] of mcg/actuati 00:00: each [place] on nasal 00 nostril Medical spray daily. [place] fluticasone 2017- Yes 2{spray Use 2 [facility] 50 9-10 } Sprays in ity of mcg/actuati 00:00: each [place] on nasal 00 nostril Medical spray daily. [place] fluticasone 2017- Yes 2{spray Use 2 [facility] 50 9-10 } Sprays in it[facility] of mcg/actuati 00:00: each [place] on nasal 00 nostril Medical spray daily. [place] fluticasone 2017- Yes 2{spray Use 2 [facility] 50 9-10 } Sprays in it[facility] of mcg/actuati 00:00: each [place] on nasal 00 nostril Medical spray daily. [place] fluticasone 2017- Yes 2{spray Use 2 [facility] 50 9-10 } Sprays in it[facility] of mcg/actuati 00:00: each [place] on nasal 00 nostril Medical spray daily. [place] fluticasone 2017- Yes 2{spray Use 2 [facility] 50 9-10 } Sprays in it[facility] of mcg/actuati 00:00: each [place] on nasal 00 nostril Medical spray daily. [place] fluticasone 2017- Yes 2{spray Use 2 [facility] 50 9-10 } Sprays in it[facility] of mcg/actuati 00:00: each [place] on nasal 00 nostril Medical spray daily. [place] fluticasone 2017- Yes 2{spray Use 2 [facility] 50 9-10 } Sprays in [facility] of mcg/actuati 00:00: each [place] on nasal 00 nostril Medical spray daily. Branch tiZANidine 2017- Yes [id number] TAKE 1 [facility] 2 mg tablet 9-10 TABLET BY ity of 00:00: MOUTH [place] 00 EVERY 8 Medical HOURS Branch NEEDED FOR MUSCLE PAIN OR SPASMS benzonatate 2018-0 Yes 200mg Take 1 [facility] vers 200 mg 9-10 capsule by [facility] of capsule 00:00: mouth 3 [place] 00 (three) Medical times Branch daily as needed for Cough. fluticasone 2018- Yes 2{spray Use 2 [facility] 50 9-10 } Sprays in it[facility] of mcg/actuati 00:00: each [place] on nasal 00 nostril Medical spray daily. Branch tiZANidine 2017-2022- No [id number] TAKE 1 [facility] 2 mg tablet 9-10 01-20 TABLET BY it y of 00:00: 00:00 MOUTH [place] 00 :00 EVERY 8 Medical HOURS Branch NEEDED FOR MUSCLE PAIN OR SPASMS tiZANidine 2017-0 2022- No [id number] TAKE 1 [facility] 2 mg tablet 9-10 01-20 TABLET BY it y of 00:00: 00:00 MOUTH [place] 00 :00 EVERY 8 Medical HOURS Branch NEEDED FOR MUSCLE PAIN OR SPASMS benzonatate 2017-0 2021- No 200mg Take 1 [facility] 200 mg 9-10 12-12 capsule by [facility] of capsule 00:00: 00:00 mouth 3 [place] 00 :00 (three) Medical times Branch daily as needed for Cough. benzonatate 2017-0 2- No 200mg Take 1 [facility] 200 mg 9-10 12-12 capsule by [facility] of capsule 00:00: 00:00 mouth 3 [place] 00 :00 (three) Medical times Branch daily as needed for Cough. pravastatin 2018-0 Yes 40mg Take 1 [facility] 40 mg 6-03 tablet by [facility] of tablet 00:00: mouth at [place] 00 bedtime. Medical Branch lisinopril 2018-0 Yes 20mg Take 1 [facility] 20 mg 6-03 tablet by [facility] of tablet 00:00: mouth [place] 00 daily. Medical Branch pravastatin 2018-0 Yes 40mg Take 1 [facility] 40 mg 6-03 tablet by [facility] of tablet 00:00: mouth at [place] 00 bedtime. Medical Branch lisinopril 2018-0 Yes 20mg Take 1 [facility] 20 mg 6-03 tablet by [facility] of tablet 00:00: mouth [place] 00 daily. Medical Branch pravastatin 2018-0 Yes 40mg Take 1 [facility] 40 mg 6-03 tablet by [facility] of tablet 00:00: mouth at [place] 00 bedtime. Medical Branch lisinopril 2018-0 Yes 20mg Take 1 [facility] 20 mg 6-03 tablet by [facility] of tablet 00:00: mouth [place] 00 daily. Medical Branch pravastatin 2018-0 Yes 40mg Take 1 [facility] 40 mg 6-03 tablet by [facility] of tablet 00:00: mouth at [place] 00 bedtime. Medical Branch lisinopril 2018-0 Yes 20mg Take 1 [facility] 20 mg 6-03 tablet by [facility] of tablet 00:00: mouth [place] 00 daily. Medical Branch pravastatin 2018-0 Yes 40mg Take 1 [facility] 40 mg 6-03 tablet by [facility] of tablet 00:00: mouth at [place] bedtime. Medical Branch lisinopril 2018-0 Yes 20mg Take 1 [facility] 20 mg 6-03 tablet by [facility] of tablet 00:00: mouth 00 daily. Medical Branch pravastatin 2018-0 Yes 40mg Take 1 [facility] 40 mg 6-03 tablet by [facility] of tablet 00:00: mouth at [place] bedtime. Medical Branch lisinopril 2018-0 Yes 20mg Take 1 [facility] 20 mg 6-03 tablet by [facility] of tablet 00:00: mouth [place] 00 daily. Medical Branch pravastatin 2018-0 Yes 40mg Take 1 [facility] 40 mg 6-03 tablet by [facility] of tablet 00:00: mouth at [place] bedtime. Medical Branch lisinopril 2018-0 Yes 20mg Take 1 [facility] 20 mg 6-03 tablet by [facility] of tablet 00:00: mouth [place] 00 daily. Medical Branch pravastatin 2018-0 Yes 40mg Take 1 [facility] 40 mg 6-03 tablet by [facility] of tablet 00:00: mouth at [place] 00 bedtime. Medical [facility] lisinopril 2018-0 Yes 20mg Take 1 [facility] 20 mg 6-03 tablet by [facility] of tablet 00:00: mouth [place] 00 daily. Medical Branch pravastatin 2018-0 Yes 40mg Take 1 [facility] 40 mg 6-03 tablet by [facility] of tablet 00:00: mouth at [place] 00 bedtime. Medical [facility] lisinopril 2018-0 Yes 20mg Take 1 [facility] 20 mg 6-03 tablet by [facility] of tablet 00:00: mouth [place] 00 daily. Medical Branch pravastatin 2018-0 Yes 40mg Take 1 [facility] 40 mg 6-03 tablet by [facility] of tablet 00:00: mouth at [place] 00 bedtime. Medical [facility] lisinopril 2018-0 Yes 20mg Take 1 [facility] 20 mg 6-03 tablet by [facility] of tablet 00:00: mouth [place] 00 daily. Medical [facility] pravastatin 2018-0 Yes 40mg Take 1 [facility] 40 mg 6-03 tablet by [facility] of tablet 00:00: mouth at [place] 00 bedtime. Medical [facility] lisinopril 2018-0 Yes 20mg Take 1 [facility] 20 mg 6-03 tablet by [facility] of tablet 00:00: mouth [place] 00 daily. Medical [facility] pravastatin 2018-0 Yes 40mg Take 1 [facility] 40 mg 6-03 tablet by [facility] of tablet 00:00: mouth at [place] 00 bedtime. Medical [facility] lisinopril 2018-0 Yes 20mg Take 1 [facility] 20 mg 6-03 tablet by [facility] of tablet 00:00: mouth [place] 00 daily. Medical Branch pravastatin 2018-0 Yes 40mg Take 1 [facility] 40 mg 6-03 tablet by [facility] of tablet 00:00: mouth at [place] 00 bedtime. Medical [facility] lisinopril 2018-0 Yes 20mg Take 1 [facility] 20 mg 6-03 tablet by [facility] of tablet 00:00: mouth [place] 00 daily. Medical [facility] pravastatin 2018-0 Yes 40mg Take 1 [facility] 40 mg 6-03 tablet by [facility] of tablet 00:00: mouth at [place] 00 bedtime. Medical [facility] lisinopril 2018-0 Yes 20mg Take 1 [facility] 20 mg 6-03 tablet by [facility] of tablet 00:00: mouth [place] 00 daily. Medical [facility] pravastatin 2018-0 2023- No 40mg Take 1 [facility] vers 40 mg 6-03 02-21 tablet by [facility] of tablet 00:00: 00:00 mouth at [place] 00 :00 bedtime. Medical [facility] lisinopril 2018-0 2023- No 20mg Take 1 [facility] 20 mg 6-03 02-21 tablet by [facility] of tablet 00:00: 00:00 mouth [place] 00 :00 daily. Medical Branch pravastatin 2018-0 2023- No 40mg Take 1 [facility] vers 40 mg 02-04 tablet by [facility] of tablet 00:00: 00:00 mouth at [place] 00 :00 bedtime. Medical [facility] lisinopril 2022- No 20mg Take 1 [facility] 20 mg 02-04 tablet by [facility] of tablet 00:00: 00:00 mouth [place] 00 :00 daily. Medical Branch SERTraline Yes [id number] 50mg Take 1 [facility] (ZOL[place]) 50 5-30 tablet by ity of mg tablet 00:00: mouth [place] 00 daily. Medical Branch traZODONE Yes [id number] 100mg Take 1 [facility] 100 mg 5-30 tablet by [facility] of tablet 00:00: mouth at [place] 00 bedtime. Medical Branch loratadine Yes 10mg Take 1 [facility] 10 mg 5-30 tablet by [facility] of tablet 00:00: mouth [place] 00 daily. Medical [facility] SERTraline Yes [id number] 50mg Take 1 [facility] ([place]) 50 5-30 tablet by [facility] of mg tablet 00:00: mouth [place] 00 daily. Medical Branch traZODONE Yes [id number] 100mg Take 1 [facility] 100 mg 5-30 tablet by [facility] of tablet 00:00: mouth at [place] 00 bedtime. Medical [facility] loratadine Yes 10mg Take 1 [facility] 10 mg 5-30 tablet by [facility] of tablet 00:00: mouth [place] 00 daily. Medical [facility] SERTraline Yes [id number] 50mg Take 1 [facility] ([place]) 50 5-30 tablet by [facility] of mg tablet 00:00: mouth [place] 00 daily. Medical Branch traZODONE 2017- Yes [id number] 100mg Take 1 [facility] 100 mg 5-30 tablet by [facility] of tablet 00:00: mouth at [place] 00 bedtime. Medical [facility] loratadine 2017-0 Yes 10mg Take 1 [facility] 10 mg 5-30 tablet by [facility] of tablet 00:00: mouth [place] 00 daily. Medical Branch loratadine 0 Yes 10mg Take 1 [facility] 10 mg 5-30 tablet by [facility] of tablet 00:00: mouth [place] 00 daily. [facility] Branch loratadine 0 Yes 10mg Take 1 [facility] 10 mg 5-30 tablet by [facility] of tablet 00:00: mouth [place] 00 daily. [facility] loratadine 2018-0 Yes 10mg Take 1 [facility] 10 mg 5-30 tablet by [facility] of tablet 00:00: mouth [place] 00 daily. [facility] loratadine 2018-0 Yes 10mg Take 1 [facility] 10 mg 5-30 tablet by [facility] of tablet 00:00: mouth [place] 00 daily. [facility] loratadine 2017-0 Yes 10mg Take 1 [facility] 10 mg 5-30 tablet by [facility] of tablet 00:00: mouth [place] 00 daily. Medical [facility] SERTraline 2018-0 Yes [id number] 50mg Take 1 [facility] ([place]) 50 5-30 tablet by [facility] of mg tablet 00:00: mouth [place] 00 daily. [facility] loratadine 2017-0 Yes 10mg Take 1 [facility] 10 mg 5-30 tablet by [facility] of tablet 00:00: mouth [place] 00 daily. [facility] traZODONE 2018-0 Yes [id number] 100mg Take 1 [facility] 100 mg 5-30 tablet by [facility] of tablet 00:00: mouth at [place] 00 bedtime. Medical [facility] loratadine 2017-0 Yes 10mg Take 1 [facility] 10 mg 5-30 tablet by [facility] of tablet 00:00: mouth [place] 00 daily. [facility] loratadine 2017-0 Yes 10mg Take 1 [facility] 10 mg 5-30 tablet by [facility] of tablet 00:00: mouth [place] 00 daily. [facility] loratadine 2017-0 Yes 10mg Take 1 [facility] 10 mg 5-30 tablet by [facility] of tablet 00:00: mouth [place] 00 daily. Medical [facility] loratadine 2017-0 Yes 10mg Take 1 [facility] 10 mg 5-30 tablet by [facility] of tablet 00:00: mouth [place] 00 daily. [facility] loratadine 2018-0 Yes 10mg Take 1 [facility] 10 mg 5-30 tablet by [facility] of tablet 00:00: mouth [place] 00 daily. [facility] loratadine 2018-0 Yes 10mg Take 1 [facility] 10 mg 5-30 tablet by [facility] of tablet 00:00: mouth [place] 00 daily. [facility] loratadine 2017-0 Yes 10mg Take 1 [facility] 10 mg 5-30 tablet by [facility] of tablet 00:00: mouth [place] 00 daily. [facility] loratadine 2018-0 Yes 10mg Take 1 [facility] 10 mg 5-30 tablet by [facility] of tablet 00:00: mouth [place] 00 daily. [facility] loratadine 2018-0 Yes 10mg Take 1 [facility] 10 mg 5-30 tablet by [facility] of tablet 00:00: mouth [place] 00 daily. [facility] loratadine 2018-0 Yes 10mg Take 1 [facility] 10 mg 5-30 tablet by [facility] of tablet 00:00: mouth [place] 00 daily. [facility] loratadine 2018-0 Yes 10mg Take 1 [facility] 10 mg 5-30 tablet by [facility] of tablet 00:00: mouth [place] 00 daily. [facility] loratadine 2018-0 Yes 10mg Take 1 [facility] 10 mg 5-30 tablet by [facility] of tablet 00:00: mouth [place] 00 daily. Medical [facility] SERTraline 2017-0 Yes [id number] 50mg Take 1 [facility] ([place]) 50 5-30 tablet by [facility] of mg tablet 00:00: mouth [place] 00 daily. [facility] loratadine 2017-0 Yes 10mg Take 1 [facility] 10 mg 5-30 tablet by [facility] of tablet 00:00: mouth [place] 00 daily. [facility] traZODONE 2018-0 Yes [id number] 100mg Take 1 [facility] 100 mg 5-30 tablet by [facility] of tablet 00:00: mouth at [place] 00 bedtime. Medical [facility] loratadine 2017-0 Yes 10mg Take 1 [facility] 10 mg 5-30 tablet by [facility] of tablet 00:00: mouth [place] 00 daily. [facility] Branch loratadine 2017-0 Yes 10mg Take 1 [facility] 10 mg 5-30 tablet by [facility] of tablet 00:00: mouth [place] 00 daily. [facility] loratadine 2018-0 Yes 10mg Take 1 [facility] 10 mg 5-30 tablet by [facility] of tablet 00:00: mouth [place] 00 daily. [facility] loratadine 2018-0 Yes 10mg Take 1 [facility] 10 mg 5-30 tablet by [facility] of tablet 00:00: mouth [place] 00 daily. [facility] loratadine 2018-0 Yes 10mg Take 1 [facility] 10 mg 5-30 tablet by [facility] of tablet 00:00: mouth [place] 00 daily. [facility] loratadine 2017-0 Yes 10mg Take 1 [facility] 10 mg 5-30 tablet by [facility] of tablet 00:00: mouth [place] 00 daily. [facility] loratadine Yes 10mg Take 1 [facility] 10 mg 5-30 tablet by [facility] of tablet 00:00: mouth [place] 00 daily. [facility] loratadine Yes 10mg Take 1 [facility] 10 mg 5-30 tablet by [facility] of tablet 00:00: mouth [place] 00 daily. [facility] loratadine Yes 10mg Take 1 [facility] 10 mg 5-30 tablet by [facility] of tablet 00:00: mouth [place] 00 daily. [facility] loratadine Yes 10mg Take 1 [facility] 10 mg 5-30 tablet by [facility] of tablet 00:00: mouth [place] 00 daily. [facility] SERTraline Yes [id number] 50mg Take 1 [facility] ([place]) 50 5-30 tablet by [facility] of mg tablet 00:00: mouth [place] 00 daily. [facility] traZODONE Yes [id number] 100mg Take 1 [facility] 100 mg 5-30 tablet by [facility] of tablet 00:00: mouth at [place] 00 bedtime. [facility] loratadine Yes 10mg Take 1 [facility] 10 mg 5-30 tablet by [facility] of tablet 00:00: mouth [place] 00 daily. [facility] SERTraline 2021- No [id number] 50mg Take 1 [facility] ([place]) 50 5-30 12-12 tablet by it y of mg tablet 00:00: 00:00 mouth [place] 00 :00 daily. [facility] traZODONE 2021- No [id number] 100mg Take 1 [facility] 100 mg 5-30 12-12 tablet by [facility] of tablet 00:00: 00:00 mouth at [place] 00 :00 bedtime. Medical [facility] SERTraline 2021- No [id number] 50mg Take 1 [facility] ([place]) 50 5-30 12-12 tablet by it y of mg tablet 00:00: 00:00 mouth [place] 00 :00 daily. [facility] traZODONE 2021- No [id number] 100mg Take 1 [facility] 100 mg 5-30 12-12 tablet by [facility] of tablet 00:00: 00:00 mouth at [place] 00 :00 bedtime. Medical Branch docusate 2016-09 Yes 100mg Take [...] for Pain (scale 4-6) or Alternate with [place] for pain scale 1-3. simethicone 2016-09 Yes 80mg Take 1 [facility] 80 mg 0-31 tablet by ity of chewable 00:00: mouth [place] tablet 00 after Medical meals and Branch at bedtime. docusate 2016-09 Yes 100mg Take 1 [facility] [...] for Pain (scale 4-6) or Alternate with [place] for pain scale 1-3. simethicone 2016-09 Yes 80mg Take 1 [facility] 80 mg 0-31 tablet by ity of chewable 00:00: mouth [place] tablet 00 after Medical meals and Branch at bedtime. docusate 2016-09 Yes 100mg Take 1 [facility] [...] for Pain (scale 4-6) or Alternate with [place] for pain scale 1-3. simethicone 2016-09 Yes 80mg Take 1 [facility] 80 mg 0-31 tablet by ity of chewable 00:00: mouth [place] tablet 00 after Medical meals and Branch at bedtime. HYDROcodone 2016-09 Yes 2{tbl} Take 2 Un [...] for Pain (scale 4-6) or Alternate with [place] for pain scale 1-3. simethicone 2016-09 Yes 80mg Take 1 [facility] 80 mg 0-31 tablet by ity of chewable 00:00: mouth [place] tablet 00 after Medical meals and Branch at bedtime. HYDROcodone 2016-09 Yes 2{tbl} Take 2 Un [...] for Pain (scale 4-6) or Alternate with [place] for pain scale 1-3. simethicone 2016-09 Yes 80mg Take 1 [facility] 80 mg 0-31 tablet by ity of chewable 00:00: mouth [place] tablet 00 after Medical meals and Branch at bedtime. HYDROcodone 2016-09 Yes 2{tbl} Take 2 Un [...] for Pain (scale 4-6) or Alternate with [place] for pain scale 1-3. simethicone 2016-09 Yes 80mg Take 1 [facility] 80 mg 0-31 tablet by ity of chewable 00:00: mouth [place] tablet 00 after Medical meals and Branch at bedtime. HYDROcodone 2016-09 Yes 2{tbl} Take 2 Un [...] for Pain (scale 4-6) or Alternate with [place] for pain scale 1-3. simethicone 2016-09 Yes 80mg Take 1 [facility] 80 mg 0-31 tablet by ity of chewable 00:00: mouth [place] tablet 00 after Medical meals and Branch at bedtime. docusate 2016-09 Yes 100mg Take 1 Univer [...] hours as needed for Pain (scale 7-10). HYDROcodone 2016-09 Yes 2{tbl} Take 2 Un [...] for Pain (scale 4-6) or Alternate with [place] for pain scale 1-3. simethicone 2016-09 Yes 80mg Take 1 [facility] 80 mg 0-31 tablet by ity of chewable 00:00: mouth [place] tablet 00 after Medical meals and Branch at bedtime. ibuprofen 2016-09 Yes 600mg Take 1 [facility] 600 mg 0-31 tablet by [facility] of tablet 00:00: mouth [place] 00 every 6 Medical (six) Branch hours as needed for Pain (scale 4-6) or Alternate with [place] for pain scale 1-3. simethicone 2016-09 Yes 80mg Take 1 [facility] 80 mg 0-31 tablet by ity of chewable 00:00: mouth [place] tablet 00 after Medical meals and Branch at bedtime. HYDROcodone 2016-09 Yes 2{tbl} Take 2 Un [...] for Pain (scale 4-6) or Alternate with [place] for pain scale 1-3. simethicone 2016-09 Yes 80mg Take 1 [facility] 80 mg 0-31 tablet by ity of chewable 00:00: mouth [place] tablet 00 after Medical meals and Branch at bedtime. HYDROcodone 2016-09 Yes 2{tbl} Take 2 Un [...] for Pain (scale 4-6) or Alternate with [place] for pain scale 1-3. simethicone 2016-09 Yes 80mg Take 1 [facility] 80 mg 0-31 tablet by ity of chewable 00:00: mouth [place] tablet 00 after Medical meals and Branch at bedtime. HYDROcodone 2016-09 Yes 2{tbl} Take 2 Un [...] for Pain (scale 4-6) or Alternate with [place] for pain scale 1-3. simethicone 2016-09 Yes 80mg Take 1 [facility] 80 mg 0-31 tablet by ity of chewable 00:00: mouth [place] tablet 00 after Medical meals and Branch at bedtime. HYDROcodone 2016-09 Yes 2{tbl} Take 2 Un [...] for Pain (scale 4-6) or Alternate with [place] for pain scale 1-3. simethicone 2016-09 Yes 80mg Take 1 [facility] 80 mg 0-31 tablet by ity of chewable 00:00: mouth [place] tablet 00 after Medical meals and Branch at bedtime. HYDROcodone 2016-09 Yes 2{tbl} Take 2 [facility] [...] for Pain (scale 4-6) or Alternate with [place] for pain scale 1-3. simethicone 2016-09 Yes 80mg Take 1 [facility] 80 mg 0-31 tablet by ity of chewable 00:00: mouth [place] tablet 00 after Medical meals and Branch at bedtime. HYDROcodone 2016-09 Yes 2{tbl} Take 2 Un [...] for Pain (scale 4-6) or Alternate with [place] for pain scale 1-3. simethicone 2016-09 Yes 80mg Take 1 [facility] 80 mg 0-31 tablet by ity of chewable 00:00: mouth [place] tablet 00 after Medical meals and Branch at bedtime. HYDROcodone 2016-09 Yes 2{tbl} Take 2 Un [...] for Pain (scale 4-6) or Alternate with [place] for pain scale 1-3. simethicone 2016-09 Yes 80mg Take 1 [facility] 80 mg 0-31 tablet by ity of chewable 00:00: mouth [place] tablet 00 after Medical meals and Branch at bedtime. HYDROcodone 2016-09 Yes 2{tbl} Take 2 Un [...] for Pain (scale 4-6) or Alternate with [place] for pain scale 1-3. simethicone 2016-09 Yes 80mg Take 1 [facility] 80 mg 0-31 tablet by ity of chewable 00:00: mouth [place] tablet 00 after Medical meals and Branch at bedtime. HYDROcodone 2016-09 Yes 2{tbl} Take 2 Un [...] for Pain (scale 4-6) or Alternate with [place] for pain scale 1-3. simethicone 2016-09 Yes 80mg Take 1 [facility] 80 mg 0-31 tablet by ity of chewable 00:00: mouth [place] tablet 00 after Medical meals and Branch at bedtime. HYDROcodone 2016-09 Yes 2{tbl} Take 2 Un [...] for Pain (scale 4-6) or Alternate with [place] for pain scale 1-3. simethicone 2016-09 Yes 80mg Take 1 [facility] 80 mg 0-31 tablet by ity of chewable 00:00: mouth [place] tablet 00 after Medical meals and Branch at bedtime. docusate 2016-09 Yes 100mg Take 1 Univer [...] for Pain (scale 4-6) or Alternate with [place] for pain scale 1-3. simethicone 2016-09 Yes 80mg Take 1 [facility] 80 mg 0-31 tablet by ity of chewable 00:00: mouth [place] tablet 00 after Medical meals and Branch at bedtime. HYDROcodone 2016-09 Yes 2{tbl} Take 2 Un [...] for Pain (scale 4-6) or Alternate with [place] for pain scale 1-3. HYDROcodone 2016-09 Yes 2{tbl} Take 2 Un [...] for Pain (scale 4-6) or Alternate with [place] for pain scale 1-3. simethicone 2016-09 Yes 80mg Take 1 [facility] 80 mg 0-31 tablet by ity of chewable 00:00: mouth [place] tablet 00 after Medical meals and Branch at bedtime. simethicone 2016-09 Yes 80mg Take 1 [facility] 80 mg 0-31 tablet by ity of chewable 00:00: mouth [place] tablet 00 after Medical meals and Branch at bedtime. HYDROcodone 2016-09 Yes 2{tbl} Take 2 Un [...] for Pain (scale 4-6) or Alternate with [place] for pain scale 1-3. simethicone 2016-09 Yes 80mg Take 1 [facility] 80 mg 0-31 tablet by ity of chewable 00:00: mouth [place] tablet 00 after Medical meals and Branch at bedtime. HYDROcodone 2016-09 Yes 2{tbl} Take 2 Un [...] for Pain (scale 4-6) or Alternate with [place] for pain scale 1-3. simethicone 2016-09 Yes 80mg Take 1 [facility] 80 mg 0-31 tablet by ity of chewable 00:00: mouth [place] tablet 00 after Medical meals and Branch at bedtime. HYDROcodone 2016-09 Yes 2{tbl} Take 2 Un [...] for Pain (scale 4-6) or Alternate with [place] for pain scale 1-3. simethicone 2016-09 Yes 80mg Take 1 [facility] 80 mg 0-31 tablet by ity of chewable 00:00: mouth [place] tablet 00 after Medical meals and Branch at bedtime. HYDROcodone 2016-09 Yes 2{tbl} Take 2 Un [...] for Pain (scale 4-6) or Alternate with [place] for pain scale 1-3. simethicone 2016-09 Yes 80mg Take 1 [facility] 80 mg 0-31 tablet by ity of chewable 00:00: mouth [place] tablet 00 after Medical meals and Branch at bedtime. HYDROcodone 2016-09 Yes 2{tbl} Take 2 Un [...] for Pain (scale 4-6) or Alternate with [place] for pain scale 1-3. simethicone 2016-09 Yes 80mg Take 1 [facility] 80 mg 0-31 tablet by ity of chewable 00:00: mouth [place] tablet 00 after Medical meals and Branch at bedtime. HYDROcodone 2016-09 Yes 2{tbl} Take 2 Un [...] for Pain (scale 4-6) or Alternate with [place] for pain scale 1-3. simethicone 2016-09 Yes 80mg Take 1 [facility] 80 mg 0-31 tablet by ity of chewable 00:00: mouth [place] tablet 00 after Medical meals and Branch at bedtime. HYDROcodone 2016-09 Yes 2{tbl} Take 2 Un [...] for Pain (scale 4-6) or Alternate with [place] for pain scale 1-3. simethicone 2016-09 Yes 80mg Take 1 [facility] 80 mg 0-31 tablet by ity of chewable 00:00: mouth [place] tablet 00 after Medical meals and Branch at bedtime. HYDROcodone 2016-09 Yes 2{tbl} Take 2 Un [...] for Pain (scale 4-6) or Alternate with [place] for pain scale 1-3. simethicone 2016-09 Yes 80mg Take 1 [facility] 80 mg 0-31 tablet by ity of chewable 00:00: mouth [place] tablet 00 after Medical meals and Branch at bedtime. HYDROcodone 2016-09 Yes 2{tbl} Take 2 Un [...] for Pain (scale 4-6) or Alternate with [place] for pain scale 1-3. simethicone 2016-09 Yes 80mg Take 1 [facility] 80 mg 0-31 tablet by ity of chewable 00:00: mouth [place] tablet 00 after Medical meals and Branch at bedtime. HYDROcodone 2016-09 Yes 2{tbl} Take 2 Un [...] for Pain (scale 4-6) or Alternate with [place] for pain scale 1-3. simethicone 2016-09 Yes 80mg Take 1 [facility] 80 mg 0-31 tablet by ity of chewable 00:00: mouth [place] tablet 00 after Medical meals and Branch at bedtime. docusate 2016-09 Yes 100mg Take 1 Univer [...] for Pain (scale 4-6) or Alternate with [place] for pain scale 1-3. simethicone 2016-09 Yes 80mg Take 1 [facility] 80 mg 0-31 tablet by ity of chewable 00:00: mouth [place] tablet 00 after Medical meals and Branch at bedtime. docusate 2016-09- No 100mg Take 1 [facility] 100 mg 0-31 12-12 capsule by ity of capsule 00:00: 00:00 mouth 2 [place] 00 :00 (two) Medical times Branch daily as needed for Constipati on. docusate 2016-09 No 100mg Take 1 [facility] 100 mg 0-31 12-12 capsule by ity of capsule 00:00: 00:00 mouth 2 [place] 00 :00 (two) Medical times Branch daily as needed for Constipati on. conjugated 2016-09 Yes [id number] .5g Insert 0.5 [facility] estrogens 0-03 g into ity of (PREMARIN) 00:00: vagina 2 [place] 0.625 00 (two) Medical mg/gram times a Branch vaginal week on cream Monday and Monday. conjugated 2016-09 Yes [id number] .5g Insert 0.5 [facility] estrogens 0-03 g into ity of (PREMARIN) 00:00: vagina 2 [place] 0.625 00 (two) Medical mg/gram times a Branch vaginal week on cream Monday and Monday. conjugated 2016-09 Yes [id number] .5g Insert 0.5 [facility] estrogens 0-03 g into ity of (PREMARIN) 00:00: vagina 2 [place] 0.625 00 (two) Medical mg/gram times a Branch vaginal week on cream Monday and Monday. conjugated 2016-09 Yes [id number] .5g Insert 0.5 [facility] estrogens 0-03 g into ity of (PREMARIN) 00:00: vagina 2 [place] 0.625 00 (two) Medical mg/gram times a Branch vaginal week on cream Monday and Monday. conjugated 2016-09 Yes [id number] .5g Insert 0.5 [facility] estrogens 0-03 g into ity of (PREMARIN) 00:00: vagina 2 [place] 0.625 00 (two) Medical mg/gram times a Branch vaginal week on cream Monday and Monday. conjugated 2016-09 Yes [id number] .5g Insert 0.5 [facility] estrogens 0-03 g into ity of (PREMARIN) 00:00: vagina 2 [place] 0.625 00 (two) Medical mg/gram times a Branch vaginal week on cream Monday and Monday. conjugated 2016-09- No [id number] .5g Insert 0.5 [facility] estrogens 0-03 12-12 g into ity of (PREMARIN) 00:00: 00:00 vagina 2 [place] 0.625 00 :00 (two) Medical mg/gram times a Branch vaginal week on cream Monday and Monday. conjugated 2016-09- No [id number] .5g Insert 0.5 [facility] estrogens 0-03 12-12 g into ity of (PREMARIN) 00:00: 00:00 vagina 2 [place] 0.625 00 :00 (two) Medical mg/gram times a Branch vaginal week on cream Monday and Monday. Immunizations Ordered Filled Immunization Date Status Comments [facility] e Immunization Name Name Influenza High Dose 2022-06-04 Completed [facility]ity of 00:00:00 [facility] Influenza High Dose 2022-06-04 Completed [facility] rsity of 00:00:00 [facility] Influenza High Dose 2022-06-04 Completed [facility] rsity of 00:00:00 [facility] Influenza High Dose 2022-06-04 Completed [facility] rsity of 00:00:00 [facility] Influenza High Dose 2022-06-04 Completed [facility] rsity of 00:00:00 [facility] Influenza High Dose 2022-06-04 Completed [facility] rsity of 00:00:00 [facility] Influenza High Dose 2022-06-04 Completed [facility] rsity of 00:00:00 [facility] Influenza High Dose 2022-06-04 Completed [facility]ive rsity of 00:00:00 [facility] Influenza High Dose 2022-06-04 Completed Unive rsity of 00:00:00 [place] [facility] Influenza High Dose 2022-06-04 Completed [facility]ive rsity of 00:00:00 [place] [facility] Influenza High Dose 2022-06-04 Completed [facility] rsity of 00:00:00 [place] [facility] Influenza High Dose 2022-06-04 Completed [facility]ive rsity of 00:00:00 [place] [facility] Influenza High Dose 2022-06-04 Completed Unive rsity of 00:00:00 [place] [facility] Influenza High Dose 2022-06-04 Completed Unive rsity of 00:00:00 [place] [facility] Influenza High Dose 2022-06-04 Completed [facility]ive rsity of 00:00:00 [place] [facility] Influenza High Dose 2022-06-04 Completed Unive rsity of 00:00:00 [place] [facility] Influenza High Dose 2022-06-04 Completed [facility]ive rsity of 00:00:00 [place] [facility] Influenza High Dose 2022-06-04 Completed [facility]ive rsity of 00:00:00 [place] [facility] Influenza High Dose 2022-06-04 Completed Unive rsity of 00:00:00 [place] [facility] Influenza High Dose 2022-06-04 Completed [facility]ive rsity of 00:00:00 [place] [facility] Influenza High Dose 2022-06-04 Completed Unive rsity of 00:00:00 [place] [facility] Influenza High Dose 2022-06-04 Completed Unive rsity of 00:00:00 [place] [facility] Influenza High Dose 2022-06-04 Completed [facility]ive rsity of 00:00:00 [place] [facility] Influenza High Dose 2022-06-04 Completed Unive rsity of 00:00:00 [place] [facility] Influenza High Dose 2022-06-04 Completed Unive rsity of 00:00:00 [place] [facility] Influenza High Dose 2022-06-04 Completed Unive rsity of 00:00:00 [place] [facility] Influenza High Dose 2022-06-04 Completed Unive rsity of 00:00:00 [place] [facility] Influenza High Dose 2022-06-04 Completed Unive rsity of 00:00:00 [place] [facility] Influenza High Dose 2022-06-04 Completed Unive rsity of 00:00:00 [place] [facility] Influenza High Dose 2022-06-04 Completed Unive rsity of 00:00:00 [place] [facility] Influenza High Dose 2022-06-04 Completed Unive rsity of 00:00:00 [place] [facility] SARS-COV-2 COVID-19 2021-07-05 Completed Unive rsity of MODERNA 0.5ML 00:00:00 [place] [facility] BOOSTER VACCINE Branch SARS-COV-2 COVID-19 2021-07-05 Completed Unive rsity of MODERNA 0.5ML 00:00:00 [place] [facility] BOOSTER VACCINE Branch SARS-COV-2 COVID-19 2021-07-05 Completed Unive rsity of MODERNA 0.5ML 00:00:00 [place] [facility] BOOSTER VACCINE Branch SARS-COV-2 COVID-19 2021-07-05 Completed Unive rsity of MODERNA 0.5ML 00:00:00 [place] [facility] BOOSTER VACCINE Branch SARS-COV-2 COVID-19 2021-07-05 Completed Unive rsity of MODERNA 0.5ML 00:00:00 [place] [facility] BOOSTER VACCINE Branch SARS-COV-2 COVID-19 2021-07-05 Completed Unive rsity of MODERNA 0.5ML 00:00:00 [place] [facility] BOOSTER VACCINE Branch SARS-COV-2 COVID-19 2021-07-05 Completed Unive rsity of MODERNA 0.5ML 00:00:00 [place] [facility] BOOSTER VACCINE Branch SARS-COV-2 COVID-19 2021-07-05 Completed Unive rsity of MODERNA 0.5ML 00:00:00 [place] [facility] BOOSTER VACCINE Branch SARS-COV-2 COVID-19 2021-07-05 Completed Unive rsity of MODERNA 0.5ML 00:00:00 [place] [facility] BOOSTER VACCINE Branch SARS-COV-2 COVID-19 2021-07-05 Completed Unive rsity of MODERNA 0.5ML 00:00:00 [place] [facility] BOOSTER VACCINE Branch SARS-COV-2 COVID-19 2021-07-05 Completed Unive rsity of MODERNA 0.5ML 00:00:00 [place] [facility] BOOSTER VACCINE Branch SARS-COV-2 COVID-19 2021-07-05 Completed Unive rsity of MODERNA 0.5ML 00:00:00 [place] [facility] BOOSTER VACCINE Branch SARS-COV-2 COVID-19 2021-07-05 Completed Unive rsity of MODERNA 0.5ML 00:00:00 [place] [facility] BOOSTER VACCINE Branch SARS-COV-2 COVID-19 2021-07-05 Completed Unive rsity of MODERNA 0.5ML 00:00:00 [place] [facility] BOOSTER VACCINE Branch SARS-COV-2 COVID-19 2021-07-05 Completed Unive rsity of MODERNA 0.5ML 00:00:00 [place] [facility] BOOSTER VACCINE Branch SARS-COV-2 COVID-19 2021-07-05 Completed Unive rsity of MODERNA 0.5ML 00:00:00 [place] [facility] BOOSTER VACCINE Branch SARS-COV-2 COVID-19 2021-07-05 Completed Unive rsity of MODERNA 0.5ML 00:00:00 [place] [facility] BOOSTER VACCINE Branch SARS-COV-2 COVID-19 2021-07-05 Completed Unive rsity of MODERNA 0.5ML 00:00:00 [place] [facility] BOOSTER VACCINE Branch SARS-COV-2 COVID-19 2021-07-05 Completed Unive rsity of MODERNA 0.5ML 00:00:00 [place] [facility] BOOSTER VACCINE Branch SARS-COV-2 COVID-19 2021-07-05 Completed Unive rsity of MODERNA 0.5ML 00:00:00 [place] [facility] BOOSTER VACCINE Branch SARS-COV-2 COVID-19 2021-07-05 Completed Unive rsity of MODERNA 0.5ML 00:00:00 [place] [facility] BOOSTER VACCINE Branch SARS-COV-2 COVID-19 2021-07-05 Completed Unive rsity of MODERNA 0.5ML 00:00:00 [place] [facility] BOOSTER VACCINE Branch SARS-COV-2 COVID-19 2021-07-05 Completed Unive rsity of MODERNA 0.5ML 00:00:00 [place] [facility] BOOSTER VACCINE Branch SARS-COV-2 COVID-19 2021-07-05 Completed Unive rsity of MODERNA 0.5ML 00:00:00 [place] [facility] BOOSTER VACCINE Branch SARS-COV-2 COVID-19 2021-07-05 Completed Unive rsity of MODERNA 0.5ML 00:00:00 [place] [facility] BOOSTER VACCINE Branch SARS-COV-2 COVID-19 2021-07-05 Completed Unive rsity of MODERNA 0.5ML 00:00:00 [place] [facility] BOOSTER VACCINE Branch SARS-COV-2 COVID-19 2021-07-05 Completed Unive rsity of MODERNA 0.5ML 00:00:00 [place] [facility] BOOSTER VACCINE Branch SARS-COV-2 COVID-19 2021-07-05 Completed Unive rsity of MODERNA 0.5ML 00:00:00 [place] [facility] BOOSTER VACCINE Branch SARS-COV-2 COVID-19 2021-07-05 Completed Unive rsity of MODERNA 0.5ML 00:00:00 [place] [facility] BOOSTER VACCINE Branch SARS-COV-2 COVID-19 2021-07-05 Completed Unive rsity of MODERNA 0.5ML 00:00:00 [place] [facility] BOOSTER VACCINE Branch SARS-COV-2 COVID-19 2021-07-05 Completed Unive rsity of MODERNA 0.5ML 00:00:00 [place] [facility] BOOSTER VACCINE Branch SARS-COV-2 COVID-19 2020-10-13 Completed Unive rsity of VACCINE - (MODERNA) 00:00:00 [facility] SARS-COV-2 COVID-19 2020-10-13 Completed Unive rsity of VACCINE - (MODERNA) 00:00:00 [facility] SARS-COV-2 COVID-19 2020-10-13 Completed Unive rsity of VACCINE - (MODERNA) 00:00:00 [facility] SARS-COV-2 COVID-19 2020-10-13 Completed Unive rsity of VACCINE - (MODERNA) 00:00:00 [facility] SARS-COV-2 COVID-19 2020-10-13 Completed Unive rsity of VACCINE - (MODERNA) 00:00:00 [facility] SARS-COV-2 COVID-19 2020-10-13 Completed Unive rsity of VACCINE - (MODERNA) 00:00:00 [facility] SARS-COV-2 COVID-19 2020-10-13 Completed Unive rsity of VACCINE - (MODERNA) 00:00:00 [facility] SARS-COV-2 COVID-19 2020-10-13 Completed Unive rsity of VACCINE - (MODERNA) 00:00:00 [facility] SARS-COV-2 COVID-19 2020-10-13 Completed Unive rsity of VACCINE - (MODERNA) 00:00:00 [facility] SARS-COV-2 COVID-19 2020-10-13 Completed Unive rsity of VACCINE - (MODERNA) 00:00:00 [facility] SARS-COV-2 COVID-19 2020-10-13 Completed Unive rsity of VACCINE - (MODERNA) 00:00:00 [facility] SARS-COV-2 COVID-19 2020-10-13 Completed Unive rsity of VACCINE - (MODERNA) 00:00:00 [facility] Branch SARS-COV-2 COVID-19 2020-10-13 Completed Unive rsity of VACCINE - (MODERNA) 00:00:00 [facility] SARS-COV-2 COVID-19 2020-10-13 Completed Unive rsity of VACCINE - (MODERNA) 00:00:00 [facility] SARS-COV-2 COVID-19 2020-10-13 Completed Unive rsity of VACCINE - (MODERNA) 00:00:00 [facility] SARS-COV-2 COVID-19 2020-10-13 Completed Unive rsity of VACCINE - (MODERNA) 00:00:00 [facility] SARS-COV-2 COVID-19 2020-10-13 Completed Unive rsity of VACCINE - (MODERNA) 00:00:00 [facility] SARS-COV-2 COVID-19 2020-10-13 Completed Unive rsity of VACCINE - (MODERNA) 00:00:00 [facility] SARS-COV-2 COVID-19 2020-10-13 Completed Unive rsity of VACCINE - (MODERNA) 00:00:00 [facility] Branch SARS-COV-2 COVID-19 2020-10-13 Completed Unive rsity of VACCINE - (MODERNA) 00:00:00 [facility] SARS-COV-2 COVID-19 2020-10-13 Completed Unive rsity of VACCINE - (MODERNA) 00:00:00 [facility] SARS-COV-2 COVID-19 2020-10-13 Completed Unive rsity of VACCINE - (MODERNA) 00:00:00 [facility] SARS-COV-2 COVID-19 2020-10-13 Completed Unive rsity of VACCINE - (MODERNA) 00:00:00 [facility] SARS-COV-2 COVID-19 2020-10-13 Completed Unive rsity of VACCINE - (MODERNA) 00:00:00 [facility] SARS-COV-2 COVID-19 2020-10-13 Completed Unive rsity of VACCINE - (MODERNA) 00:00:00 [facility] SARS-COV-2 COVID-19 2020-10-13 Completed Unive rsity of VACCINE - (MODERNA) 00:00:00 [facility] SARS-COV-2 COVID-19 2020-10-13 Completed Unive rsity of VACCINE - (MODERNA) 00:00:00 [facility] SARS-COV-2 COVID-19 2020-10-13 Completed Unive rsity of VACCINE - (MODERNA) 00:00:00 [facility] SARS-COV-2 COVID-19 2020-10-13 Completed Unive rsity of VACCINE - (MODERNA) 00:00:00 [facility] SARS-COV-2 COVID-19 2020-10-13 Completed Unive rsity of VACCINE - (MODERNA) 00:00:00 [facility] SARS-COV-2 COVID-19 2020-10-13 Completed Unive rsity of VACCINE - (MODERNA) 00:00:00 [facility] SARS-COV-2 COVID-19 2020-09-16 Completed Unive rsity of VACCINE - (MODERNA) 00:00:00 [facility] SARS-COV-2 COVID-19 2020-09-16 Completed Unive rsity of VACCINE - (MODERNA) 00:00:00 [facility] SARS-COV-2 COVID-19 2020-09-16 Completed Unive rsity of VACCINE - (MODERNA) 00:00:00 [facility] SARS-COV-2 COVID-19 2020-09-16 Completed Unive rsity of VACCINE - (MODERNA) 00:00:00 [facility] SARS-COV-2 COVID-19 2020-09-16 Completed Unive rsity of VACCINE - (MODERNA) 00:00:00 [facility] SARS-COV-2 COVID-19 2020-09-16 Completed Unive rsity of VACCINE - (MODERNA) 00:00:00 [facility] SARS-COV-2 COVID-19 2020-09-16 Completed Unive rsity of VACCINE - (MODERNA) 00:00:00 [facility] SARS-COV-2 COVID-19 2020-09-16 Completed Unive rsity of VACCINE - (MODERNA) 00:00:00 [facility] SARS-COV-2 COVID-19 2020-09-16 Completed Unive rsity of VACCINE - (MODERNA) 00:00:00 [facility] SARS-COV-2 COVID-19 2020-09-16 Completed Unive rsity of VACCINE - (MODERNA) 00:00:00 [facility] SARS-COV-2 COVID-19 2020-09-16 Completed Unive rsity of VACCINE - (MODERNA) 00:00:00 [facility] SARS-COV-2 COVID-19 2020-09-16 Completed Unive rsity of VACCINE - (MODERNA) 00:00:00 [facility] SARS-COV-2 COVID-19 2020-09-16 Completed Unive rsity of VACCINE - (MODERNA) 00:00:00 [facility] SARS-COV-2 COVID-19 2020-09-16 Completed Unive rsity of VACCINE - (MODERNA) 00:00:00 [facility] SARS-COV-2 COVID-19 2020-09-16 Completed Unive rsity of VACCINE - (MODERNA) 00:00:00 [facility] SARS-COV-2 COVID-19 2020-09-16 Completed Unive rsity of VACCINE - (MODERNA) 00:00:00 [facility] SARS-COV-2 COVID-19 2020-09-16 Completed Unive rsity of VACCINE - (MODERNA) 00:00:00 [facility] SARS-COV-2 COVID-19 2020-09-16 Completed Unive rsity of VACCINE - (MODERNA) 00:00:00 [facility] SARS-COV-2 COVID-19 2020-09-16 Completed Unive rsity of VACCINE - (MODERNA) 00:00:00 [facility] SARS-COV-2 COVID-19 2020-09-16 Completed Unive rsity of VACCINE - (MODERNA) 00:00:00 [facility] SARS-COV-2 COVID-19 2020-09-16 Completed Unive rsity of VACCINE - (MODERNA) 00:00:00 [facility] SARS-COV-2 COVID-19 2020-09-16 Completed Unive rsity of VACCINE - (MODERNA) 00:00:00 [facility] SARS-COV-2 COVID-19 2020-09-16 Completed Unive rsity of VACCINE - (MODERNA) 00:00:00 [facility] SARS-COV-2 COVID-19 2020-09-16 Completed Unive rsity of VACCINE - (MODERNA) 00:00:00 [facility] SARS-COV-2 COVID-19 2020-09-16 Completed Unive rsity of VACCINE - (MODERNA) 00:00:00 [facility] SARS-COV-2 COVID-19 2020-09-16 Completed Unive rsity of VACCINE - (MODERNA) 00:00:00 [facility] SARS-COV-2 COVID-19 2020-09-16 Completed Unive rsity of VACCINE - (MODERNA) 00:00:00 [facility] SARS-COV-2 COVID-19 2020-09-16 Completed Unive rsity of VACCINE - (MODERNA) 00:00:00 [facility] SARS-COV-2 COVID-19 2020-09-16 Completed Unive rsity of VACCINE - (MODERNA) 00:00:00 [facility] SARS-COV-2 COVID-19 2020-09-16 Completed Unive rsity of VACCINE - (MODERNA) 00:00:00 [facility] SARS-COV-2 COVID-19 2020-09-16 Completed Unive rsity of VACCINE - (MODERNA) 00:00:00 [facility] Pneumococcal 13 2017-08-03 Completed Universit y of Conjugate, PCV13 00:00:00 [facility] dical (Prevnar 13) Branch Pneumococcal 13 2017-08-03 Completed Universit y of Conjugate, PCV13 00:00:00 [facility] dical (Prevnar 13) Branch Pneumococcal 13 2017-08-03 Completed Universit y of Conjugate, PCV13 00:00:00 [facility] dical (Prevnar 13) Branch Pneumococcal 13 2017-08-03 Completed Universit y of Conjugate, PCV13 00:00:00 [facility] dical (Prevnar 13) Branch Pneumococcal 13 2017-08-03 Completed Universit y of Conjugate, PCV13 00:00:00 [place] [facility] (Prevnar 13) Branch Pneumococcal 13 2017-08-03 Completed Universit y of Conjugate, PCV13 00:00:00 [place] [facility] (Prevnar 13) Branch Pneumococcal 13 2017-08-03 Completed Universit y of Conjugate, PCV13 00:00:00 [place] [facility] (Prevnar 13) Branch Pneumococcal 13 2017-08-03 Completed Universit y of Conjugate, PCV13 00:00:00 [place] [facility] (Prevnar 13) Branch Pneumococcal 13 2017-08-03 Completed Universit y of Conjugate, PCV13 00:00:00 [place] [facility] (Prevnar 13) Branch Pneumococcal 13 2017-08-03 Completed Universit y of Conjugate, PCV13 00:00:00 [place] [facility] (Prevnar 13) Branch Pneumococcal 13 2017-08-03 Completed Universit y of Conjugate, PCV13 00:00:00 [place] [facility] (Prevnar 13) Branch Pneumococcal 13 2017-08-03 Completed Universit y of Conjugate, PCV13 00:00:00 [place] [facility] (Prevnar 13) Branch Pneumococcal 13 2017-08-03 Completed Universit y of Conjugate, PCV13 00:00:00 [place] [facility] (Prevnar 13) Branch Pneumococcal 13 2017-08-03 Completed Universit y of Conjugate, PCV13 00:00:00 [place] [facility] (Prevnar 13) Branch Pneumococcal 13 2017-08-03 Completed Universit y of Conjugate, PCV13 00:00:00 [place] [facility] (Prevnar 13) Branch Pneumococcal 13 2017-08-03 Completed Universit y of Conjugate, PCV13 00:00:00 [place] [facility] (Prevnar 13) Branch Pneumococcal 13 2017-08-03 Completed Universit y of Conjugate, PCV13 00:00:00 [place] [facility] (Prevnar 13) Branch Pneumococcal 13 2017-08-03 Completed Universit y of Conjugate, PCV13 00:00:00 [place] [facility] (Prevnar 13) Branch Pneumococcal 13 2017-08-03 Completed Universit y of Conjugate, PCV13 00:00:00 [place] [facility] (Prevnar 13) Branch Pneumococcal 13 2017-08-03 Completed Universit y of Conjugate, PCV13 00:00:00 [place] [facility] (Prevnar 13) Branch Pneumococcal 13 2017-08-03 Completed Universit y of Conjugate, PCV13 00:00:00 [place] [facility] (Prevnar 13) Branch Pneumococcal 13 2017-08-03 Completed Universit y of Conjugate, PCV13 00:00:00 [place] [facility] (Prevnar 13) Branch Pneumococcal 13 2017-08-03 Completed Universit y of Conjugate, PCV13 00:00:00 [place] [facility] (Prevnar 13) Branch Pneumococcal 13 2017-08-03 Completed Universit y of Conjugate, PCV13 00:00:00 [place] [facility] (Prevnar 13) Branch Pneumococcal 13 2017-08-03 Completed Universit y of Conjugate, PCV13 00:00:00 [place] [facility] (Prevnar 13) Branch Pneumococcal 13 2017-08-03 Completed Universit y of Conjugate, PCV13 00:00:00 [place] [facility] (Prevnar 13) Branch Pneumococcal 13 2017-08-03 Completed Universit y of Conjugate, PCV13 00:00:00 [place] [facility] (Prevnar 13) Branch Pneumococcal 13 2017-08-03 Completed Universit y of Conjugate, PCV13 00:00:00 [place] [facility] (Prevnar 13) Branch Pneumococcal 13 2017-08-03 Completed Universit y of Conjugate, PCV13 00:00:00 [place] [facility] (Prevnar 13) Branch Pneumococcal 13 2017-08-03 Completed Universit y of Conjugate, PCV13 00:00:00 [place] [facility] (Prevnar 13) Branch Pneumococcal 13 2017-08-03 Completed Universit y of Conjugate, PCV13 00:00:00 [place] [facility] (Prevnar 13) Branch Pneumococcal 13 2017-08-03 Completed Universit y of Conjugate, PCV13 00:00:00 [place] [facility] (Prevnar 13) Branch Pneumococcal 13 2017-08-03 Completed Universit y of Conjugate, PCV13 00:00:00 [place] [facility] (Prevnar 13) Branch Vital Signs Vital Name Observation Time Observation Value Comments Source Systolic blood 2022-12-29 16:34:00 131 mm[Hg] Univer sity of pressure [facility] Diastolic blood 2022-12-29 16:34:00 81 mm[Hg] Unive [facility] Heart rate 2022-12-29 16:34:00 88 /min [facility] Body temperature 2022-12-29 16:34:00 36.39 Amy [facility] height 2022-12-29 16:34:00 165.1 cm [facility] [place] [facility] Body weight 2022-12-29 16:34:00 67.586 kg [facility] [place] [facility] BMI 2022-12-29 16:34:00 24.79 kg/m2 [facility] [place] [facility] Oxygen saturation in 2022-12-29 16:34:00 100 /min University of Arterial blood by [place] [employer] Pulse oximetry Branch Systolic blood 2022-11-21 19:54:00 136 mm[Hg] Univer sity of pressure [facility] Diastolic blood 2022-11-21 19:54:00 86 mm[Hg] Unive rsity of pressure [facility] Heart rate 2022-11-21 19:54:00 96 /min [facility] [place] [facility] Body temperature 2022-11-21 19:54:00 37 Amy Univ ersity of [place] [facility] Respiratory rate 2022-11-21 19:54:00 16 /min Univ ersity of [place] [facility] Body height 2022-11-21 19:54:00 165.1 cm [facility] [place] [facility] Body weight 2022-11-21 19:54:00 65.59 kg [facility] [place] [facility] BMI 2022-11-21 19:54:00 24.06 kg/m2 [facility] [place] [facility] Oxygen saturation in 2022-11-21 19:54:00 98 /min University of Arterial blood by [place] [employer] P[facility] oxim[facility] Branch Systolic blood 2022-10-25 14:52:00 130 mm[Hg] Univer sity of pressure [facility] [place] [facility] Diastolic blood 2022-10-25 14:52:00 82 mm[Hg] Unive rsity of pressure [facility] Heart rate 2022-10-25 14:52:00 90 /min [facility] [place] [facility] Body temperature 2022-10-25 14:52:00 36.94 Amy Univ ersity of [place] [facility] Body height 2022-10-25 14:52:00 165.1 cm [facility] [place] [facility] Body weight 2022-10-25 14:52:00 67.903 kg [facility] [place] [facility] BMI 2022-10-25 14:52:00 24.91 kg/m2 [facility] [place] [facility] Oxygen saturation in 2022-10-25 14:52:00 98 /min University of Arterial blood by [facility] Pulse oximetry Branch Systolic blood 2022-09-23 17:12:00 132 mm[Hg] Univer sity of pressure [facility] [place] [facility] Diastolic blood 2022-09-23 17:12:00 87 mm[Hg] Unive rsity of pressure [facility] [place] [facility] Heart rate 2022-09-23 17:12:00 93 /min [facility] [place] [facility] Body temperature 2022-09-23 17:12:00 37 Amy Univ ersity of [place] [facility] Respiratory rate 2022-09-23 17:12:00 17 /min Univ ersity of [place] [facility] Body height 2022-09-23 17:12:00 165.1 cm [facility] [place] [facility] Body weight 2022-09-23 17:12:00 68.04 kg [facility] [place] [facility] BMI 2022-09-23 17:12:00 24.96 kg/m2 [facility] [place] [facility] Oxygen saturation in 2022-09-23 17:12:00 98 /min University of Arterial blood by [facility] Pulse oximetry Branch Systolic blood 2022-08-15 15:55:00 121 mm[Hg] Univer sity of pressure [facility] [place] [facility] Diastolic blood 2022-08-15 15:55:00 75 mm[Hg] Unive rsity of pressure [facility] [place] [facility] Heart rate 2022-08-15 15:54:00 100 /min [facility] [place] [facility] Body temperature 2022-08-15 15:54:00 36.83 Amy Univ ersity of [place] [facility] Body height 2022-08-15 15:54:00 165.1 cm [facility] [place] [facility] Body weight 2022-08-15 15:54:00 68.04 kg [facility] [place] [facility] BMI 2022-08-15 15:54:00 24.96 kg/m2 [facility] [place] [facility] Oxygen saturation in 2022-08-15 15:54:00 100 /min University of Arterial blood by [facility] Pulse oximetry Branch Systolic blood 2022-07-22 14:27:00 145 mm[Hg] Univer sity of pressure [facility] [place] [facility] Diastolic blood 2022-07-22 14:27:00 87 mm[Hg] Unive rsity of pressure [place] [facility] Heart rate 2022-07-22 14:26:00 105 /min [facility] Body temperature 2022-07-22 14:26:00 36.94 Amy [facility] Body height 2022-07-22 14:26:00 165.1 cm [facility] Body weight 2022-07-22 14:26:00 67.132 kg [facility] BMI 2022-07-22 14:26:00 24.63 kg/m2 [facility] Oxygen saturation in 2022-07-22 14:26:00 97 /min [facility] Arterial blood by [facility] Pulse oximetry Branch Procedures Procedure Date / Time Performing Clinician Source Performed PATIENT FINANCIAL 2022-12-29 05:01:[address] [facility] RESPONSIBILITY - ALL [place] FORMS COMP. METABOLIC PANEL 2022-09-29 13:36:00 Cristina Choe [facility] ([id number]) Medical [place] LIPID PANEL (82729)(TOTAL 2022-09-29 13:36:00 Cristina Choe [facility] CHOLESTEROL, [facility] TRIGLYCERIDES, HDL) GLYCOSYLATED HEMOGLOBIN 2022-09-29 13:36:00 Daija Cristina [facility] (A1C) [facility] URINALYSIS 2022-09-29 13:36:00 Daija [facility] ASSIGNMENT OF BENEFITS 2022-07-22 14:08:37 Doctor Ana [facility] REFERRAL- 2020-09-29 06:01:00 Doctor Ana [facility] REQUEST/RESPONSE [place] Encounters Start End Encounter Admission Attending Care Care Encounter Source Date/Time Date/Time Type Type Clinicians Facility Department ID 2023-04-25 2023-04-25 Outpatient R CRISTINA CHOE [facility] [id number] [facility] 09:20:00 09:20:00 CRISTINA CHOE [facility] 2023-01-25 2023-01-25 Telephone ROSA Choe [id number] Univers 00:00:00 00:00:00 [facility] [id number] ity of [place] [id number] Jose Luis as ANDERSON?BLEA [phone] De sebas ORTEGA [address] [facility] OFFICE [facility] 2023-01-19 2023-01-19 Telephone [facility] [id number] Univers 00:00:00 00:00:00 [facility] [id number] ity of [place] [id number] Jose Luis as ANDERSON?BLEA [phone] De sebas ORTEGA [address] [place] [address] OFFICE [facility] 2023-01-18 2023-01-18 Telephone [facility] [id number] Univers 00:00:00 00:00:00 Cristina HEALTH [id number] ity of [place] [id number] Jose Luis as ANDERSON?BLEA [phone] De sebas ORTEGA [address] [place] [address] OFFICE [facility] 2023-01-10 2023-01-10 Telephone [facility] [id number] Univers 00:00:00 00:00:00 Dulce HEALTH [id number] ity of [place] [id number] Jose Luis as ANDERSON?BLEA [id number] De sebas ORTE[place] [address] [place] [address] OFFICE [facility] 2023-01-09 2023-01-09 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, Ang - [facility] 1.2.840.1 [id number] Univers 09:30:00 09:45:00 Visit Daija [facility] [id number] ity of [place] [id number] Jose Luis as ANDERSON?BLEA [phone] De sebas ORTE[place] 353 [facility] OFFICE [facility] 2023-01-09 2023-01-09 Outpatient R CRISTINA CHOE [facility] [id number] Univers 09:30:00 09:30:00 CRISTINA CHOE [facility] 2023-01-09 2023-01-09 Telephone [facility] [id number] Univers 00:00:00 00:00:00 [facility] [id number] ity of [place] 4.2.7.2.686 Jose Luis as ANDERSON?BLEA [phone] [facility] SHANDA 044 [facility] OFFICE [facility] 2022-12-29 2022-12-29 Office Daija [facility] [id number] Univers 11:20:00 12:00:00 Visit [facility] [id number] ity of [place] 4.2.7.2.686 Jose Luis as ANDERSON?BLEA [id number] [address] OFFICE [facility] 2022-12-29 2022-12-29 Outpatient R CRISTINA CHOE [facility] [id number] Univers 11:20:00 11:20:00 CRISTINA CHOE [facility] 2022-12-29 2022-12-29 Orders Doctor FREEMAN [id number] Univers 00:00:00 00:00:00 Only Unassigned, MINDEN [id number] ity of [place] [facility] 4.2.7.2.686 Jose Luis as [id number] [address] 2022-12-26 2022-12-26 Outpatient R DAIJA [facility] [id number] Univers 08:00:00 08:00:00 CRISTINA jones [facility] 2022-12-19 2022-12-[address] [facility] [id number] Univers 00:00:00 00:00:00 [facility] [id number] ity of [facility] 4[place].2.[place] [id number] [facility] [address] [facility] 2022-12-06 2022-12-06 [facility] [id number] Univers 00:00:00 00:00:00 Surgery [facility] [id number] [place] [phone] De dical NAL 204 [facility] 2022-11-21 2022-11-[address] [facility] 1.2.840.114 [id number] Univers 14:45:00 15:15:00 Visit [facility] [id number] [facility] [place]2.[place].2.[place] [id number] De sebas MOMIN 188 [facility] 2022-11-21 2022-11-[address] [facility] [id number] Univers 14:45:00 14:45:00 SHERMAN [facility] 2022-11-21 2022-11-21 [facility]patient [facility] [id number] Univers 13:00:00 13:00:00 ROSI jennifercarola o f [facility] 2022-11-09 2022-11-[address] [facility] [id number] Univers 13:15:00 13:15:00 [address] [facility] 2022-10-25 2022-10-25 Outpatient [facility] [id number] Univers 09:20:00 09:51:33 [facility] 2022-10-25 2022-10-25 [facility] 1.2.840.114 [id number] Univers 09:20:00 09:51:33 Visit [facility] [id number] [facility] 4.2.7.2.686 Jose Luis as ANDERSON?BLEA [phone] [facility] 044 [facility] OFFICE [facility] 2022-10-17 2022-10-17 Outpatient R [facility] [id number] Univers 09:40:00 09:40:00 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, Ang - [facility] 1.2.840.1 14 [id number] Univers 13:45:00 14:00:00 Visit Tray Abbott [facility] [id number] [facility] 4.2.7.2.686 Jose Luis as ANDERSON?BLEA [id number] [facility] KIA 353 [facility] OFFICE [facility] 2022-10-03 2022-10-03 Outpatient R [facility] [id number] Univers 13:45:00 13:45:00 TRAY jones [facility] 2022-09-29 2022-09-29 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, Ang - Db [facility] 1.2.840.1 [id number] Univers 07:30:00 07:47:32 Visit Cristina Choe HEALTH [id number] ity of [place] 4.2.7.2.686 Jose Luis as ANDERSON?BLEA [id number] [facility] 353 [facility] OFFICE [facility] 2022-09-29 2022-09-29 Outpatient R DAIJA, [facility] [id number] Univers 07:30:00 07:30:00 CRISTINA ity [facility] 2022-09-23 2022-09-23 Outpatient R DAIJA, [facility] [id number] Univers 11:00:00 11:37:19 CRISTINA ity [facility] 2022-09-23 2022-09-23 Office [facility] 1.2.840.114 [id number] Univers 11:00:00 11:37:19 Visit [facility] 350.1.13.10 ity of [place] 4.2.7.2.686 Jose Luis as ANDERSON?BLEA [phone] De sebas [place]TE[place] [address] [facility] 2022-09-08 2022-09-08 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, Ang - Db [facility] 1.2.840.1 14 [id number] Univers 07:45:00 07:45:33 Visit Cristina Choe HEALTH 350.1.13.10 ity of [place] 4.2.7.2.686 Jose Luis as ANDERSON?BLEA [id number] [facility] 353 [facility] OFFICE [facility] 2022-09-08 2022-09-08 Out[facility] [id number] Univers 07:45:00 07:45:00 CRISTINA ity [facility] 2022-08-15 2022-08-15 Outpatient R DAIJA, [facility] [id number] Univers 10:00:00 10:13:25 CRISTINA ity [facility] 2022-08-15 2022-08-15 Office [facility] 1.2.840.114 [id number] Univers 10:00:00 10:13:25 Visit [facility] 350.1.13.10 ity of [place] 4.2.7.2.686 Jose Luis as ANDERSON?BLEA [id number] De sebas [place] 044 [place] MEDICAL OFFICE [facility] 2022-08-12 2022-08-12 Outpatient R DAIJA [facility] [id number] Univers 10:40:00 10:40:00 [facility] 2022-07-25 2022-07-25 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, Ang - [facility] 1.2.840.1 14 [id number] Univers 09:00:00 09:15:00 Visit Daija [facility] 350.1.13.10 ity of [place] 4.2.7.2.686 Jose Luis as ANDERSON?BLEA [id number] De sebas [place] [address] [place] MEDICAL OFFICE [facility] 2022-07-25 2022-07-25 Outpatient R DAIJA [facility] [id number] Univers 09:00:00 09:00:00 [facility] 2022-07-22 2022-07-22 Outpatient R DAIJA [facility] [id number] Univers 08:20:00 09:02:30 [facility] 2022-07-22 2022-07-22 Office [facility] 1.2.840.114 [id number] Univers 08:20:00 09:02:30 Visit [facility] 350.1.13.10 ity of [place] 4.2.7.2.686 Jose Luis as ANDERSON?BLEA [phone] [address] MEDICAL OFFICE [facility] 2022-07-22 2022-07-22 Orders Doctor MILLARD 1.2.840.114 [id number] Univers 00:00:00 00:00:00 Only Unassigned, YOMI 350.1.13.10 ity of [place] [facility] 4.2.7.2.686 Jose Luis as [id number] [address] 2022-07-20 2022-07-20 Outpatient R AMADO [facility] [id number] Univers 13:00:00 13:00:00 BEATRIZ jones [facility] 2022-06-24 2022-06-24 Outpatient SONIA KAMARA [id number] [place] 08:00:00 08:00:00 ROBERT Seybol d 2022-06-23 2022-06-23 Outpatient SONIA KAMARA SONIA [id number] [place] 14:15:00 14:15:00 ROBERT Seybol d 2022-03-03 2022-03-03 Outpatient SONIA KAMARA SONIA [id number] [place] 10:45:00 10:45:00 ROBERT Seybol d 2020-10-06 2020-10-06 Outpatient RENATO [facility] [id number] Univers 09:00:00 09:00:00 ROB [id number] [facility] 2020-10-06 2020-10-06 [facility] [id number] Univers 09:00:00 09:00:00 ROB [facility] 2020-09-29 2020-09-29 Orders Doctor FREEMAN 1.2.840.114 [id number] 00:00:00 00:00:00 Only Unassigned, YOMI 350.1.13.10 [place] [facility] 4.2.7.2.686 [id number] 2020-09-29 2020-09-29 Orders Doctor FREEMAN Maurer.2.840.114 [id number] Univers 00:00:00 00:00:00 Only Unassigned, YOMI 350.1.13.10 ity of [place] [facility] 4.2.7.2.686 Jose Luis as [id number] [address] Results Test Description Test Time Test Comments Results Result Comments Source GLYCOSYLATED HEMOGLOBIN (A1C) 2022-09-29 20:19:39 Test Item Value Reference Range Interpretation Comme nts HGB A1C (test code = 4548-4) 5.9 % 4.0-5.7 H WILFREDO (test code = WILFREDO) Reference RangesNormal: <5.7%Prediabetes: 5.7 - 6.4%Diabetes: > 6.5% Lab Interpretation (test code = Abnormal 86162-5) [facility]08531[facility]2022-09-29 19:47:41 Test Item Value Reference Range Interpretation Comments NA (test code = 135 mmol/L 135-145 0699524757) K (test code = 4.6 mmol/L 3.5-5.0 3254642549) CL (test code = 100 mmol/L 98-108 6838444681) CO2 TOTAL (test code = 24 mmol/L 23-31 4893895443) AGAP (test code = 2-16 0635188030) BUN (test code = 12 mg/dL 7-23 7270471620) GLUCOSE (test code = 92 mg/dL 70-110 9219117896) CREATININE (test code = 0.46 mg/dL 0.50-1.04 L 7476439604) TOTAL BILI (test code = 0.8 mg/dL 0.1-1.7 0023243601) CALCIUM (test code = 9.1 mg/dL 8.6-10.6 9457728267) T PROTEIN (test code = 8.3 g/dL 6.3-8.2 H 8839830536) ALBUMIN (test code = 4.9 g/dL 3.5-5.0 1557127020) ALK PHOS (test code = 46 U/L 34-122 6134219996) ALTv (test code = 27 U/L 5-35 1742-6) AST(SGOT) (test code = 31 U/L 13-40 1270530807) eGFR (test code = mL/min/1.73m2 4356720067) WILFREDO (test code = WILFREDO) Association of Glomerular Filtration Rate (GFR) and Staging of Kidney Disease* + --+ --+ ------+| GFR (mL/min/1.73 m2) ?| With Kidney Damage ?| ?Without Kidney Damage+ --------+ --------+ +| ?>90 ?| ?Stage one ?| ? Normal ?+ ---+ ---+ -------+| ?60-89 ?| ?Stage two ?| ? Decreased GFR ? + --+ --+ ------+| ?30-59 ?| ?Stage three ?| ? Stage three ? + --+ --+ ------+| ?15-29 ?| ?Stage four ? | ? Stage four ?+ ---+ ---+ -------+| ?<15 (or dialysis) ? ?| ?Stage five ? | ? Stage five ?+ ---+ ---+ -------+ *Each stage assumes the associated GFR level has been in effect for at least three months. ?Stages 1 to 5, with or without kidney disease, indicate chronic kidney disease. Notes: Determination of stages one and two (with eGFR >59mL/min/1.73 m2) requires estimation of kidney damage for at least three months as defined by structural or functional abnormalities of the kidney, manifested by either:Pathological abnormalities or Markers of kidney damage (including abnormalities in the composition of the blood or urine or abnormalities in imaging tests). Lab Interpretation Abnormal (test code = 46967-8) [facility] (48621)(TOTAL CHOLESTEROL, TRIGLYCERIDES, HDL)2022-09-29 19:47:41 Test Item Value Reference Range Interpretation Comments CHOL (test code = 245 mg/dL 120-200 H 7980221974) HDL (test code = 49 mg/dL See_Comment L [Automated message] 7985124389) The system Vanks[employer] generated this result transmit irina reference range : >=50. The refer ence range was not u sed to interpret th is result as normal/abnormal . HDLC RATIO (test code = See_Comment H [Au tomated message] 8856868004) The system [employer] generated this result transmit irina reference range : <=4.5. The refe rence range was not u sed to interpret th is result as normal/abnormal . TRIG (test code = 288 mg/dL 30-170 H 7908926912) LDL CHOL (test code = 138 mg/dL See_Comment [Auto mated message] 01124-1) The system [employer]anks[employer] generated this result transmit irina reference range : <=160. The refe rence range was not u sed to interpret th is result as normal/abnormal . VLDL (test code = 58 mg/dL 5-60 8670083378) Lab Interpretation (test Abnormal code = 57769-6) [facility]"
[2023-04-18 09:39] LABS: Absolute Lymphocytes (CBC) 1.9 K/uL (0.7-4.9); Hematocrit 42.3 % (36.0-45.0); Lymphocytes % 35.7 % (15.3-44.8); MCV 92.3 fL (80-100); MPV 8.9 fL (7.6-11.3); Platelets 230 thou/uL (152-406); RBC Red Blood Cell Count 4.58 M/uL (3.86-4.86)
[2023-04-18] MEDS ORDERED: MAGNES/ALUMIN/SIMET 30ML UCUP ONE (09:50)
[2023-04-18] MEDS ORDERED: FAMOTIDINE 20 MG/2 ML VIAL IV ONE (09:50)
--- NOTE | 2023-04-18 10:10 | RAD REPORT ---
EXAM DESCRIPTION: Sarah Single View04/18/2023 9:56 am CLINICAL HISTORY: Chest pain COMPARISON: 2021 FINDINGS: The lungs appear clear of acute infiltrate. The heart is normal size IMPRESSION: No acute abnormalities displayed
[2023-04-18 10:23] LABS: ALT/SGPT 28 U/L (13-56); AST/SGOT 19 U/L (15-37); Alkaline Phosphatase 52 U/L (45-117); BUN Blood Urea Nitrogen 11 mg/dL (7-18); Bicarbonate 27 mEq/L (21-32); Bilirubin Direct 0.1 mg/dL (0-0.2); Bilirubin Indirect, Calculated 0.3 mg/dL (0.2-0.8); Bilirubin Total 0.4 mg/dL (0.2-1.0); Glomerular Filtration Rate 96 ml/min (=/>90); Glucose Level 109 mg/dL (74-106); NT PRO-BNP 39 pg/mL (<125); Potassium 3.7 mEq/L (3.5-5.1); Sodium Level 135 mEq/L (136-145)
[2023-04-18 10:25] LABS: Troponin High Sensitivity < 3.0 pg/mL (<58.9)
--- NOTE | 2023-04-18 11:16 | RAD REPORT ---
EXAM DESCRIPTION: CT - Chest For Pe Angio - 04/18/2023 11:03 am CLINICAL HISTORY: Chest pain COMPARISON: None. TECHNIQUE: Dynamically enhanced axial 3 mm thick images of the chest were obtained during administra tion of 100 mL Isovue 370 IV contrast. Coronal and oblique reconstruction images were generated and r eviewed. Exam utilizes a protocol for optimal evaluation of pulmonary arterial tree. Maximum intensity projections 3D imaging was utilized All CT scans are performed using dose optimization technique as appropriate and may include automated exposure control or mA/KV adjustment according to patient size. FINDINGS: A pulmonary embolus is not seen. A thoracic aortic aneurysm is not noted. A pleural effusion is not seen. A pericardial effusion is not seen. A lung consolidation is not present. IMPRESSION: Negative for a pulmonary embolism.
--- NOTE | 2023-04-18 11:39 | EDPHYS ---
Physician Documentation [facility] Name: Mary Ortega Age: 73 yrs Sex: Female : 1950 Arrival Date: 04/18/2023 Time: 08:56 Bed 14 Private MD: ED Physician Mikhail Nix HPI: 04/18 10:33 This 73 yrs old Female presents to ER via Ambulatory with complaints of chest rn pain, stress test. 10:33 The patient or guardian reports chest pain that is located primarily in the anterior rn chest wall, left. Onset: at an unknown time. Associated signs and symptoms: Pertinent negatives: abdominal pain, cough, diaphoresis, palpitations, shortness of breath, syncope, vomiting. The chest pain is described as "pulsating". Duration: The patient or guardian reports multiple episodes. Modifying factors: The symptoms are alleviated by nothing. the symptoms are aggravated by nothing. Severity of pain: At its worst the pain was mild in the emergency department the pain has improved. The patient has experienced similar episodes in the past. The patient has been recently seen by a physician:. Pt here because she is upset that her stress test has been cancelled a second time. She is supposed to have a stress test for clearance for endoscopy. Has been having intermittent brief episodes of chest pain for weeks/months now and needs this stress test to be cleared. NO sob. No hx of heart attack or CAD. No fever. No sob. . Historical: - PMHx: 09:24 Back pain; Chronic back and neck pain; Hyperlipidemia; Hypertension; ap3 - PSHx: 09:24 hysterectomy; ap3 - Immunization history:: Adult Immunizations unknown. - Social history:: Smoking status: Patient denies any tobacco usage or history of. - Family history:: not pertinent. - Hospitalizations: : No recent hospitalization is reported. ROS: 10:33 Constitutional: Negative for fever, chills, and weight loss, Eyes: Negative for injury, rn pain, redness, and discharge, Cardiovascular: Negative for palpitations, and edema, Respiratory: Negative for shortness of breath, cough, wheezing, and pleuritic chest pain, Abdomen/GI: Negative for abdominal pain, nausea, vomiting, diarrhea, and constipation, Back: Negative for injury and pain, MS/Extremity: Negative for injury and deformity, Skin: Negative for injury, rash, and discoloration, Neuro: Negative for headache, weakness, numbness, tingling, and seizure. Exam: 10:33 Constitutional: This is a well developed, well nourished patient who is awake, alert, rn and in no acute distress. Head/Face: Normocephalic, atraumatic. Cardiovascular: Tachycardic, regular. No pulse deficits. Respiratory: No increased work of breathing, no retractions or nasal flaring. Abdomen/GI: Soft, non-tender Skin: Warm, dry MS/ Extremity: Pulses equal, no cyanosis. Neuro: Awake and alert, GCS 15 Vital Signs: 09:22 BP 184 / 98; Pulse 109; Resp 18; Temp 98.6; Pulse Ox 100% ; ap3 09:30 BP 153 / 91; Pulse 99; Resp 16; Pulse Ox 97% on R/A; db 10:00 BP 131 / 99; Pulse 86; Resp 16; Pulse Ox 100% on R/A; db 10:38 BP 141 / 84; Pulse 72; Resp 16; Pulse Ox 100% on R/A; db 11:45 BP 141 / 84; Pulse 72; Resp 16; Pulse Ox 100% on R/A; db MDM: 09:09 Patient medically screened. rn 11:36 Differential diagnosis: acute myocardial infarction, acute pericarditis, anxiety, rn coronary artery disease costochondritis, esophagitis, gastritis, pleurisy, pneumothorax, pulmonary embolus, thoracic aortic disection. Data reviewed: vital signs, nurses notes, lab test result(s), EKG, radiologic studies, CT scan, and as a result, I will discharge patient. Counseling: I had a detailed discussion with the patient and/or guardian regarding: the historical points, exam findings, and any diagnostic results supporting the discharge/admit diagnosis, lab results, radiology results, the need for outpatient follow up, to return to the emergency department if symptoms worsen or persist or if there are any questions or concerns that arise at home. Response to treatment: the patient's symptoms have mildly improved after treatment, and as a result, I will discharge patient. Special discussion: Based on the patient's history, exam, and Dx evaluation, there is no indication for emergent intervention or inpatient Tx. It is understood by the patient/guardian that if the Sx's persist or worsen they need to return immediately for re-evaluation. I discussed with the patient/guardian in detail that at this point there is no indication for admission to the hospital. It is understood, however, that if the symptoms persist or worsen the patient needs to return immediately for re-evaluation. ED course: NO acute findings in w/u here, neg trop, neg BNP, CT PE neg. Stable vitals. No indication for emergent stress test, as was for clearance and neg trop without acute ECG changes. Will dc home with instructions to take antacids and f/u with GI. Return precautions given and understood.. 04/18 09:22 Order name: Basic Metabolic Panel; Complete Time: :32 rn 04/18 09:22 Order name: CBC with Diff; Complete Time: : rn 04/18 09:22 Order name: LFT's; Complete Time: : rn 04/18 09:22 Order name: NT PRO-BNP; Complete Time: : rn 04/18 09:22 Order name: Troponin HS; Complete Time: : rn 04/18 09:22 Order name: XRAY Chest (1 view); Complete Time: : rn 04/18 10:38 Order name: CT Chest For PE Angio; Complete Time: 11:18 rn 04/18 09:22 Order name: EKG; Complete Time: :22 rn 04/18 09:22 Order name: Cardiac monitoring; Complete Time: :32 rn 04/18 09:22 Order name: EKG - Nurse/Tech; Complete Time: :32 rn 04/18 09:22 Order name: IV Saline Lock; Complete Time: :32 rn 04/18 09:22 Order name: Labs collected and sent; Complete Time: :32 rn 04/18 09:22 Order name: O2 Per Protocol; Complete Time: 09:25 rn 04/18 09:22 Order name: O2 Sat Monitoring; Complete Time: 09:25 rn Administered Medications: 09:45 Drug: GI Cocktail without - (Maalox PO Suspension 30 ml, Lidocaine Mucous db Membrane Liquid 2 % 15 ml) Route: PO; 11:51 Follow up: Response: No adverse reaction db 09:50 Drug: Famotidine IVP 20 mg Route: IVP; Site: right antecubital; db 11:50 Follow up: Response: No adverse reaction db Disposition Summary: 04/18/23 11:39 Discharge Ordered Location: Home rn Problem: an ongoing problem rn Symptoms: have improved rn Condition: Stable rn Diagnosis - Chest pain, unspecified rn Followup: rn - With: Private Physician - When: As needed - Reason: Recheck today's complaints, Re-evaluation by your physician Discharge Instructions: - Discharge Summary Sheet rn - Nonspecific Chest Pain, Adult rn Forms: - Medication Reconciliation Form rn - Thank You Letter rn - Antibiotic varnish thinner - Prescription Opioid Use rn - Patient Portal Instructions rn - Leadership Thank You Letter rn Prescriptions: - Protonix 40 mg Oral Tablet - take 1 tablet by ORAL route once daily; 30 tablet; Refills: 0, Product rn Selection Permitted Signatures: Dispatcher [employer] EDMikhail Colon MD MD rn Prokisch, Amanda, RN RN [email or web address] Shanique Ronquillo, RN RN db
--- NOTE | 2023-04-18 11:39 | ER ---
Nurse's Notes [facility] Name: Mary Ortega Age: 73 yrs Sex: Female : 1950 Arrival Date: 04/18/2023 Time: 08:56 Bed 14 Private MD: Diagnosis: Chest pain, unspecified Presentation: 04/18 09:22 Chief complaint: Spouse and/or significant other states: the patient was scheduled to ap3 have a stress test, however it was canceled for the second time this morning. patient is complaining of left sided pulsating chest pain that only lasts a few seconds at a time. Coronavirus screen: At this time, the client does not indicate any symptoms associated with coronavirus-19. Ebola Screen: No symptoms or risks identified at this time. Initial Sepsis Screen: Does the patient meet any 2 criteria? No. Patient's initial sepsis screen is negative. Does the patient have a suspected source of infection? No. Patient's initial sepsis screen is negative. Risk Assessment: Do you want to hurt yourself or someone else? Patient reports no desire to harm self or others. Onset of symptoms is unknown. 09:22 Method Of Arrival: Ambulatory ap3 09:22 Acuity: MYKE 3 ap3 Triage Assessment: 09:23 General: Appears in no apparent distress. Behavior is calm, cooperative. Pain: ap3 Complains of pain in anterior aspect of left upper chest Is episodic, lasting a few seconds. Neuro: Level of Consciousness is awake, alert, obeys commands, Oriented to person, place, time, situation, Gait is steady. Cardiovascular: Reports chest pain, Patient's skin is warm and dry. Respiratory: Airway is patent Respiratory effort is even, unlabored, Respiratory pattern is regular, symmetrical. Historical: - PMHx: 09:24 Back pain; Chronic back and neck pain; Hyperlipidemia; Hypertension; ap3 - PSHx: 09:24 hysterectomy; ap3 - Immunization history:: Adult Immunizations unknown. - Social history:: Smoking status: Patient denies any tobacco usage or history of. - Family history:: not pertinent. - Hospitalizations: : No recent hospitalization is reported. Screenin:24 Abuse screen: Denies threats or abuse. Nutritional screening: No deficits noted. ap3 Tuberculosis screening: No symptoms or risk factors identified. 09:33 [facility] ED Fall Risk Assessment (Adult) History of falling in the last 3 months, db including since admission No falls in past 3 months (0 pts) Confusion or Disorientation No (0 pts) Intoxicated or Sedated No (0 pts) Impaired Gait Yes (1 pt) Mobility Assist Device Used Yes (1 pt) Altered Elimination No (0 pt) Score/Fall Risk Level 0 - 2 = Low Risk Oriented to surroundings, Maintained a safe environment. Assessment: 09:33 Reassessment: Patient appears in no apparent distress at this time. Patient and/or db family updated on plan of care and expected duration. Pain level reassessed. Patient is alert, oriented x 3, equal unlabored respirations, skin warm/dry/pink. General: Appears in no apparent distress. comfortable, Behavior is calm, cooperative. Neuro: Level of Consciousness is awake, alert, obeys commands, Oriented to person, place, time, situation. Respiratory: Airway is patent Respiratory effort is even, unlabored, Respiratory pattern is regular. 10:48 Reassessment: Patient appears in no apparent distress at this time. No changes from db previously documented assessment. Patient and/or family updated on plan of care and expected duration. Pain level reassessed. Patient is alert, oriented x 3, equal unlabored respirations, skin warm/dry/pink. General: Appears in no apparent distress. comfortable, Behavior is calm, cooperative. Neuro: Level of Consciousness is awake, alert, obeys commands, Oriented to person, place, time, situation. Cardiovascular: Capillary refill < 3 seconds Patient's skin is warm and dry. Rhythm is sinus rhythm. 11:45 Reassessment: Patient appears in no apparent distress at this time. Patient and/or db family updated on plan of care and expected duration. Pain level reassessed. Patient is alert, oriented x 3, equal unlabored respirations, skin warm/dry/pink. General: Behavior is calm, cooperative. Vital Signs: 09:22 BP 184 / 98; Pulse 109; Resp 18; Temp 98.6; Pulse Ox 100% ; ap3 09:30 BP 153 / 91; Pulse 99; Resp 16; Pulse Ox 97% on R/A; db 10:00 BP 131 / 99; Pulse 86; Resp 16; Pulse Ox 100% on R/A; db 10:38 BP 141 / 84; Pulse 72; Resp 16; Pulse Ox 100% on R/A; db 11:45 BP 141 / 84; Pulse 72; Resp 16; Pulse Ox 100% on R/A; db ED Course: 08:59 Patient arrived in ED. ts1 09:02 Karen Omalley FNP-C [facility]. snw 09:02 Mikhail Nix MD is Attending Physician. snw 09:23 Triage completed. ap3 09:24 Arm band placed on right wrist. ap3 09:24 Patient has correct armband on for positive identification. Bed in low position. Call ap3 light in reach. section gang on. Pulse ox on. NIBP on. 09:28 Inserted saline lock: 20 gauge in right antecubital area, using aseptic technique. db Blood collected. 09:32 Shanique Ronquillo, RN is Primary Nurse. db 09:58 XRAY Chest (1 view) In Process Unspecified. EDMS 11:04 CT Chest For PE Angio In Process Unspecified. EDMS 11:52 Provided Education on: DISCHARGE. db 11:52 No provider procedures requiring assistance completed. IV discontinued, intact, db bleeding controlled, No redness/swelling at site. Administered Medications: 09:45 Drug: GI Cocktail without - (Maalox PO Suspension 30 ml, Lidocaine Mucous db Membrane Liquid 2 % 15 ml) Route: PO; 11:51 Follow up: Response: No adverse reaction db 09:50 Drug: Famotidine IVP 20 mg Route: IVP; Site: right antecubital; db 11:50 Follow up: Response: No adverse reaction db Medication: 09:33 VIS not applicable for this client. db Outcome: 11:39 Discharge ordered by . rn 11:52 Discharged to home ambulatory, with family. db 11:52 Condition: stable 11:52 Discharge instructions given to patient, family, Instructed on discharge instructions, follow up and referral plans. Prescriptions given X 1. 11:52 Patient left the ED. db Signatures: Dispatcher [employer] EDMS Karen Omalley FNP-C [employer] Mikhail Nix MD MD rn Prokisch, Aparna RN RN ap3 Shanique Ronquillo, RN RN Aleah Mas, LEONIE PAS ts1
[2023-04-18 12:09] VITALS: TEMP 98.6
[2023-04-18 12:12] VITALS: O2SAT 100
[2023-04-18 12:14] VITALS: BP 141/84
--- NOTE | 2023-04-19 18:30 | EKG ---
Test Date: 2023-04-18 Test Time: 09:30:32 Parquet Floor Layer: LACHO MEASUREMENT RESULTS: Intervals: Rate: 91 OK: 160 QRSD: 68 QT: 356 QTc: 437 Spearman: P: 34 OK: 160 QRS: 17 T: 30 INTERPRETIVE STATEMENTS: Normal sinus rhythm Nonspecific ST abnormality Abnormal ECG Compared to ECG 06/18/2022 10:02:35 ST (T wave) deviation now present Sinus tachycardia no longer present Electronically Signed On 04-19-23 18:27:06 CDT by Devonte Royal
== END 2023-04-18 11:52 | disposition home or self-care (01) ==
LOC: ER 08:56
DX: R07.89 Other chest pain (principal); I10 Essential (primary) hypertension
CPT/HCPCS: 93005; 85025; 80048; 36415; 80076; 84484; 83880; 71275; 71045; 96374; 99285; Q9967

== ENCOUNTER 2024-05-29 09:45 | Emergency (ER) | payer OTHER ==
--- OUTSIDE RECORDS SUMMARY | 2024-05-29 09:59 | XMS REPORT | Continuity of Care Document ---
Author Name Unknown Address [address] [facility] [address] [place] [address] [facility] thconnect Address [address] [facility] [place] [address] Care Team Providers Care Screener Operator Name Role Phone Cristina Mejia MD Primary Care Physician [phone] CRISTINA MEJIA Attending Clinician Unavailable CRISTINA MEJIA Attending Clinician Unavailable TIANNA JIN Attending Clinician Unavailable YASSINE NERI Attending Clinician Unavailable YASSINE NERI Attending Clinician Unavailable Mariana Mcclendon Attending Clinician [phone] Lab, Ang Evon Cruz Attending Clinician Unavailable MARIANA PURCELL Attending Clinician Unavailable Cristina Mejia MD Attending Clinician [phone] Yassine Neri MD Attending Clinician [phone] DOMINIQUE SCHWAB Attending Clinician Unavailable Mariana Mcclendon Attending Clinician [phone] Kelsey Salgado RN Attending Clinician UnavailDominique Nice MD Attending Clinician [phone] Lab, Ang - Db Attending Clinician Unavailable FIORELLA CORTEZ Attending Clinician TRAY Lopez Attending Clinician Unavailable Jama Main DO Attending Clinician [phone] Tianna Jin MD Attending Clinician [phone] ILIA BARNES Attending Clinician Unavailable Ilia Barnes MD Attending Clinician Doctor Unassigned, [place] Attending Clinician U naina Bolanos MD, Mary Anne Fay Attending Clinician MARY ANNE BOLANOS Attending Clinician Lyndsay SHI French Attending Clinician Unavailable HIEU CHACON Attending Clinician Unavailable [email or web address] Attending Clinician Unavaildheeraj Mendoza MD, William Attending Clinician [phone] WILLIAM MENDOZA Attending Clinician Unavailable TATIANA ROBLES Attending Clinician Unavailable TATIANA ROBLES Attending Clinician Unavailable Magdalena MANCERA, Minh Attending Clinician [phone] MINH SHERMAN Attending Clinician Unavailable ROSI ALEXANDRE Attending Clinician UnavailTray Mike Attending Clinician [phone] ROBERT KAMARA Attending Clinician Unavailable ROB GROSS Attending Clinician Unavailable Grace MANCERA, Atiya Esqeuda Attending Clinician [phone] YASSINE NERI Admitting Clinician Unavailable CRISTINA MEJIA Admitting Clinician Unavailable DOMINIQUE SCHWAB Admitting Clinician Unavailable Dominique Schwab MD Admitting Clinician [phone] [email or web address] Admitting Clinician UnavailWILLIAM Perez Admitting Clinician Unavailable Payers Payer Name Policy Type Policy Number Effective Date Expirati on Date Source [facility] [id number] 2020 00:00:00 [employer] [id number] GOLD PLUS 2022 03 [id number] 2022 00:00:00 Problems Condition Name Condition Details Condition Category Status Onset Date Resolution Date Last Treatment Date Treating Clinician Comments Source Gastric ulcer Gastric ulcer Disease Active 10-05 00:00: 00 [facility] Osteoporos is Osteoporos is Disease Active 10-05 00:00: 00 [facility] Abdominal pain, epigastric Abdominal pain, epigastric Disease Active 2022-09 00:00: 00 [facility] Early satiety Early satiety Disease Active 2022-09 00:00: 00 [facility] Tubular adenoma of colon Tubular adenoma of colon Disease Active 2022-09 2-13 00:00: 00 [facility] 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 Added automatic ally from request for surgery [id number] [facility] Inconclusi ve mammogram due to dense breasts Inconclusi ve mammogram due to dense breasts Disease Active 6 00:00: 00 [facility] Sciatica of left side Sciatica of left side Disease Active 2019-09 00:00: 00 [facility] Sciatica of left side Sciatica of left side Disease Active 2019-09 00:00: 00 [facility] Degenerati on of lumbar interverte bral disc Degenerati on of lumbar interverte bral disc Disease Active 09-25 00:00: 00 [facility] Lumbar radiculopa thy Lumbar radiculopa thy Disease Active 09-25 00:00: 00 [facility] Chronic pain disorder Chronic pain disorder Disease Active 09-25 00:00: 00 [facility] Bilateral foot pain Bilateral foot pain Disease Active 6- 00:00: 00 [facility] Reflux esophagiti s Reflux esophagiti s Disease Active 2016-09 00:00: 00 Overview: Formattin g of this note might be different from the original. Added automatic ally from request for surgery [id number] [facility] S/P total hysterecto my and BSO (bilateral salpingo-o ophorectom y) S/P total hysterecto my and BSO (bilateral salpingo-o ophorectom y) Disease Active 2016-09 0-30 00:00: 00 [facility] Breast pain, right Breast pain, right Disease Active 2016-09 0-23 00:00: 00 [facility] History of colon polyps History of colon polyps Disease Active 2016-09 00:00: 00 [facility] Breast pain, right Breast pain, right Disease Active 2016-09 00:00: 00 [facility] Abnormal ultrasound of breast Abnormal ultrasound of breast Disease Active 2016-09 0 00:00: 00 Overview: Formattin g of this note might be different from the original. Edema, ductal dilation, and multiple small cysts; 3 month f/u recommend ed. [facility] Uterine procidenti a Uterine procidenti a Disease Active 2016-09 004 00:00: 00 Overview: Formattin g of this note might be different from the original. Added automatic ally from request for surgery [id number] [facility] Prediabete s Prediabete s Disease Active 05-11 00:00: 00 [facility] Abnormal EKG Abnormal EKG Disease Active 01-26 00:00: 00 [facility] Chest pain, unspecifie d type Chest pain, unspecifie d type Disease Active 01-26 00:00: 00 [facility] Palpitatio ns Palpitatio ns Disease Active 01-26 00:00: 00 [facility] Spinal arthritis Spinal arthritis Disease Active 2015-09 00:00: 00 [facility] Patient is Baptism Patient is Baptism Disease Active 05-10 00:00: 00 [facility] Blood transfusio n declined because patient is Baptism Blood transfusio n declined because patient is Baptism Disease Active 05-10 00:00: 00 [facility] Colon polyps Colon polyps Disease Active 04-08 00:00: 00 [facility] Chronic neck and back pain Chronic neck and back pain Disease Active 04-08 00:00: 00 Overview: Formattin g of this note might be different from the original. Neck and lower back [facility] Prolapse of female pelvic organs Prolapse of female pelvic organs Disease Active 04-08 00:00: 00 [facility] Anxiety Anxiety Disease Active 04-08 00:00: 00 [facility] Chronic insomnia Chronic insomnia Disease Active 04-08 00:00: 00 [facility] Microscopi c hematuria Microscopi c hematuria Disease Active 04-08 00:00: 00 [facility] Depression Depression Disease Active 04-08 00:00: 00 [facility] Diverticul osis Diverticul osis Disease Active 04-08 00:00: 00 [facility] Mixed hyperlipid emia Mixed hyperlipid emia Disease Active 10-24 00:00: 00 [facility] Hypertensi on Hypertensi on Disease Active 10-24 00:00: 00 [facility] Allergies, Adverse Reactions, Alerts Allergy Name Allergy Type Status Severity Reaction(s) Onset Date Inactive Date Treating Clinician Comments Source NO KNOWN ALLERGIE S Drug Class Active [facility] Social History Social Habit Start Date Stop Date Quantity Comments Source Gender identity [facility] Sexual orientation U [facility] Alcoholic beverage intake 2024-05-16 00:00:00 2024-05-16 00:00:00 0 /d [facility] Alcohol intake 2024-01-02 00:00:00 2024-01-02 00:00:00 0 /d [facility] History of Social function 2023-10-17 00:00:00 2023-10-17 00:00:00 [facility] Exposure to SARS-CoV-2 (event) 2022-12-30 00:00:00 2023-01-09 09:05:00 Not sure [facility] Tobacco use and exposure 2022-07-22 00:00:00 2022-07-22 00:00:00 Smokeless tobacco non-user [facility] Sex assigned at 1950 00:00:00 1950 00:00:00 [facility] Smoking Status Start Date Stop Date Source Never smoked tobacco [facility] Medications Ordered Medication Name Filled Medication Name Start Date Stop Date Current Medication? Ordering Clinician Indication Dosage Frequency Signature (SIG) Comments Components Source dicyclomine 10 mg capsule 04-05 00:00: 00 Yes [id number] 10mg Take 1 capsule by mouth every 6 (six) hours as needed for Abdominal pain. [facility] methylPREDN ISolone (MEDROL, SHELLIE,) 4 mg tablets 04-05 00:00: 00 05-16 00:00 :00 No [id number] 9100 Take by mouth SEE-INSTRU CTIONS. follow package directions [facility] methylPREDN ISolone (MEDROL, SHELLIE,) 4 mg tablets 03-06 00:00: 00 04-05 00:00 :00 No [id number] 9100 Take by mouth SEE-INSTRU CTIONS. follow package directions [facility] gallium-68 dotatate (NETSPOT) injection 5.31 millicurie 02-18 18:00: 00 02-18 18:04 :00 No [id number] 5.31mCi 5.31 millicurie , Intravenou s, ONCE, 1 dose, On Mon02/19/24 at 1315, Routine [facility] tiZANidine 4 mg tablet 01-03 08:43: 08 Yes 4mg Take 1 tablet by mouth at bedtime. [facility] meclizine 25 mg tablet 01-03 08:43: 08 Yes 25mg Take 1 tablet by mouth 3 (three) times daily as needed for Dizziness. [facility] chlorthalid one 25 mg tablet 01-03 08:43: 08 Yes 25mg Take 1 tablet by mouth daily. [facility] alendronate 70 mg tablet 01-03 08:43: 08 Yes 70mg Take 1 tablet by mouth once every month. [facility] diclofenac dodium (ARTHRITIS PAIN, DICLOFENAC, ) 1 % gel 01-03 00:00: 00 Yes [id number] 2g Apply 2 g to affected area(s) 4 (four) times daily as needed for Pain. [facility] lidocaine 2% viscous 2 % solution 01-03 00:00: 00 Yes [id number] 10mL Take 10 mL by mouth every 4 (four) hours as needed for Oral mucosal pain. [facility] dicy[facility] 10 mg capsule 01-03 00:00: 00 04-05 00:00 :00 No [id number] 10mg Take 1 capsule by mouth every 6 (six) hours as needed for Abdominal pain. [facility] gabapentin 300 mg capsule 01-01 13:52: 10 Yes 300mg Take 1 capsule by mouth 2 (two) times daily. [facility] methocarbam oL 500 mg tablet 12-28 00:00: 00 Yes 500mg Take 1 tablet by mouth at bedtime as needed. [facility] lidocaine 2% viscous 2 % solution 12-03 00:00: 00 01-03 00:00 :00 No [id number] 10mL Take 10 mL by mouth every 4 (four) hours as needed for Oral mucosal pain. [facility] dicyclomine (BENTYL) injection 20 mg 10-19 22:00: 00 10-19 20:10 :48 No [id number] 20mg [facility] cefUROXime 500 mg tablet 10-19 00:00: 00 01-03 00:00 :00 No [id number] 500mg Take 1 tablet by mouth 2 (two) times daily. [facility] dicyclomine 10 mg capsule 10-19 00:00: 00 01-03 00:00 :00 No [id number] 10mg Take 1 capsule by mouth every 6 (six) hours as needed for Abdominal pain. [facility] simethicone (GAS RELIEF (SIMETHICON E)) 40 mg/0.6 mL drops 10-17 17:35: 00 Yes PRN, Starting on Mon10/17/23 at 1135, Until Discontinu ed, Routine, Intra-op [facility] tiZANidine 4 mg tablet 10-17 13:04: 05 Yes 4mg Take 1 tablet by mouth at bedtime. [facility] meclizine 25 mg tablet 10-17 13:04: 05 Yes 25mg Take 1 tablet by mouth 3 (three) times daily as needed for Dizziness. [facility] gabapentin 300 mg capsule 10-17 13:04: 05 Yes 300mg Take 1 capsule by mouth 2 (two) times daily. [facility] chlorthalid one 25 mg tablet 10-17 13:04: 05 Yes 25mg Take 1 tablet by mouth daily. [facility] alendronate 70 mg tablet 10-17 13:04: 05 Yes 70mg Take 1 tablet by mouth once every month. [facility] Diclofenac Sodium (ARTHRITIS PAIN, DICLOFENAC, ) 1 % gel 10-17 13:04: 05 Yes 2g Apply 2 g to affected area(s) 4 (four) times daily as needed. [facility] lisinopriL 40 mg tablet 10-17 13:04: 05 Yes 40mg Take 1 tablet by mouth daily. [facility] LISINOPRIL 20 mg tablet 10-12 00:00: 00 Yes [id number] 20mg TAKE 1 TABLET BY MOUTH DAILY [facility] ATORVASTATI N 40 mg tablet 10-12 00:00: 00 Yes [id number] 40mg TAKE 1 TABLET BY MOUTH AT BEDTIME [facility] peg-electro lyte soln 236-22.74-6 .74 -5.86 gram solution 10-11 00:00: 00 01-03 00:00 :00 No Take as directed before colonoscop y [facility] meloxicam 15 mg tablet 10-05 14:44: 27 10-05 00:00 :00 No 15mg Take 1 tablet by mouth daily. [facility] pravastatin 40 mg tablet 10-05 14:34: 28 10-05 00:00 :00 No 40mg Take 1 tablet by mouth at bedtime. [facility] HYDROcodone -acetaminop hen 7.5-325 mg per tablet 10-05 14:33: 54 10-05 00:00 :00 No 1{tbl} Take 1 tablet by mouth every 6 (six) hours as needed. [facility] tiZANidine 4 mg tablet 10-05 14:20: 06 Yes 4mg Take 1 tablet by mouth at bedtime. [facility] meclizine 25 mg tablet 10-05 14:20: 06 Yes 25mg Take 1 tablet by mouth 3 (three) times daily as needed for Dizziness. [facility] gabapentin 300 mg capsule 10-05 14:20: 06 Yes 300mg Take 1 capsule by mouth 2 (two) times daily. [facility] chlorthalid one 25 mg tablet 10-05 14:20: 06 Yes 25mg Take 1 tablet by mouth daily. [facility] alendronate 70 mg tablet 10-05 14:20: 06 Yes 70mg Take 1 tablet by mouth once every month. [facility] lisinopriL 40 mg tablet 10-05 14:20: 06 01-03 00:00 :00 No 40mg Take 1 tablet by mouth daily. [facility] omeprazole 40 mg capsule 10-05 00:00: 00 Yes [id number] 40mg Take 1 capsule by mouth daily. [facility] calcium carbonate (CALCIUM 600) 600 mg calcium (1,500 mg) tablet 10-05 00:00: 00 Yes [id number] 600mg Take 1 tablet by mouth 2 (two) times daily with meals. [facility] hydrocortis one 1 % cream 10-05 00:00: 00 10-20 05:59 :00 No [id number] Apply to area(s) daily for 14 days. [facility] Diclofenac Sodium (ARTHRITIS PAIN, DICLOFENAC, ) 1 % gel 1-31 17:20: 23 01-03 00:00 :00 No 2g Apply 2 g to affected area(s) 4 (four) times daily as needed. [facility] HYDROcodone -acetaminop hen 10-325 mg tablet 2022-09 2-12 00:00: 00 Yes TAKE 1 TABLET BY MOUTH EVERY 12 HOURS NEEDED FOR MODERATE TO SEVERE PAIN [facility] SUCRALFATE 1 gram tablet 2022-09 1-20 00:00: 00 Yes [id number] 1g TAKE 1 TABLET BY MOUTH FOUR TIMES DAILY [facility] omeprazole 40 mg capsule 2022-09 0-30 00:00: 00 10-05 00:00 :00 No [id number] 40mg TAKE 1 CAPSULE BY MOUTH DAILY [facility] lisinopriL 20 mg tablet 2022-09 0-09 00:00: 00 10-05 00:00 :00 No [id number] 20mg Take 1 tablet by mouth 2 (two) times daily. [facility] ergocalcife rol, vitamin d2, 1,250 mcg (50,000 unit) capsule 9 00:00: 00 Yes [id number] 93807G Take 1 capsule by mouth once every month. [facility] fluticasone propionate 50 mcg/actuati on nasal spray 04-25 00:00: 00 Yes [id number] 2{spray } Use 2 Sprays in each nostril daily. [facility] sucralfate 1 gram tablet 04-25 00:00: 00 07-24 00:00 :00 No [id number] 1g Take 1 tablet by mouth 4 (four) times daily. [facility] ergocalcife rol, vitamin d2, 1,250 mcg (50,000 unit) capsule 04-25 00:00: 00 05-18 00:00 :00 No [id number] 99457S Take 1 capsule by mouth once every month. [facility] SUCRALFATE 1 gram tablet 8-18 00:00: 00 04-25 00:00 :00 No [id number] 1g TAKE 1 TABLET BY MOUTH FOUR TIMES DAILY [facility] polyethylen e glycol 3350 17 gram powder 4-27 00:00: 00 Yes [id number] 1{packe t} Take 1 Packet by mouth once daily as needed for Constipati on. [facility] omeprazole 40 mg capsule 12-29 00:00: 00 07-03 00:00 :00 No [id number] 40mg Take 1 capsule by mouth daily. [facility] sucralfate 1 gram tablet 12-29 00:00: 00 04-21 00:00 :00 No [id number] 1g Take 1 tablet by mouth 4 (four) times daily. [facility] peg-electro lyte soln 236-22.74-6 .74 -5.86 gram solution 12-06 00:00: 00 12-07 04:59 :00 No 4000mL Take 4,000 mL by mouth once now for 1 dose. [facility] Blood Pressure Monitor (BLOOD PRESSURE KIT) Kit 10-25 00:00: 00 Yes [id number] Use as directed twice daily to check blood pressure. [facility] Blood Pressure Monitor (BLOOD PRESSURE KIT) Kit 10-25 00:00: 00 Yes [id number] Use as directed twice daily to check blood pressure. [facility] atorvastati n 40 mg tablet 10-25 00:00: 00 10-12 00:00 :00 No [id number] 40mg Take 1 tablet by mouth at bedtime. [facility] lisinopriL 20 mg tablet 10-25 00:00: 00 06-12 00:00 :00 No [id number] 20mg Take 1 tablet by mouth daily. [facility] benzonatate 200 mg capsule 2021-09 2- 00:00: 00 09-23 00:00 :00 No [id number] 200mg Take 1 capsule by mouth 3 (three) times daily as needed for Cough. [facility] promethazin e-dextromet horphan 6.25-15 mg/5 mL syrup 2021-09 2- 00:00: 00 09-23 00:00 :00 No [id number] 5mL Take 5 mL by mouth 4 (four) times daily as needed for Cough. [facility] omeprazole 20 mg capsule 2021-09 00:00: 00 09-23 00:00 :00 No [id number] 20mg Take 1 capsule by mouth 2 (two) times daily. [facility] doxycycline hyclate 100 mg tablet 2021-09 00:00: 00 09-23 00:00 :00 No [id number] 100mg Take 1 tablet by mouth 2 (two) times daily. [facility] metroNIDAZO LE 250 mg tablet 2021-09 00:00: 00 08-07 05:59 :00 No [id number] 250mg Take 1 tablet by mouth 4 (four) times daily for 10 days. [facility] OMEPRAZOLE 20 mg capsule 2017-09 0 00:00: 00 07-27 00:00 :00 No TAKE 1 CAPSULE BY MOUTH ONCE DAILY [facility] fluticasone 50 mcg/actuati on nasal spray 05-14 00:00: 00 04-25 00:00 :00 No 2{spray } Use 2 Sprays in each nostril daily. [facility] tiZANidine 2 mg tablet 05-14 00:00: 00 09-23 00:00 :00 No [id number] TAKE 1 TABLET BY MOUTH EVERY 8 HOURS NEEDED FOR MUSCLE PAIN OR SPASMS [facility] benzonatate 200 mg capsule 05-14 00:00: 00 08-15 00:00 :00 No 200mg Take 1 capsule by mouth 3 (three) times daily as needed for Cough. [facility] pravastatin 40 mg tablet 02-04 00:00: 00 10-25 00:00 :00 No 40mg Take 1 tablet by mouth at bedtime. [facility] lisinopril 20 mg tablet 6 00:00: 00 10-25 00:00 :00 No 20mg Take 1 tablet by mouth daily. [facility] loratadine 10 mg tablet 01-31 00:00: 00 Yes 10mg Take 1 tablet by mouth daily. [facility] SERTraline (ZOLOFT) 50 mg tablet 01-31 00:00: 00 08-15 00:00 :00 No [id number] 50mg Take 1 tablet by mouth daily. [facility] traZODONE 100 mg tablet 01-31 00:00: 08-15 00:00 :00 No [id number] 100mg Take 1 tablet by mouth at bedtime. [facility] HYDROcodone -acetaminop hen 5-325 mg tablet 2016-09 00:00: 00 10-05 00:00 :00 No 2{tbl} Take 2 tablets by mouth every 6 (six) hours as needed for Pain (scale 7-10). [facility] ibuprofen 600 mg tablet 2016-09 00:00: 10-05 00:00 :00 No 600mg Take 1 tablet by mouth every 6 (six) hours as needed for Pain (scale 4-6) or Alternate with [place] for pain scale 1-3. [facility] simethicone 80 mg chewable tablet 2016-09 00:00: 00 10-05 00:00 :00 No 80mg Take 1 tablet by mouth after meals and at bedtime. [facility] docusate 100 mg capsule 2016-09 00:00: 08-15 00:00 :00 No 100mg Take 1 capsule by mouth 2 (two) times daily as needed for Constipati on. [facility] conjugated estrogens (PREMARIN) 0.625 mg/gram vaginal cream 2016-09 00:00: 00 08-15 00:00 :00 No [id number] .5g Insert 0.5 g into vagina 2 (two) times a week on Monday and Monday. [facility] traMADOL (ULTRAM) 50 mg tablet 2015-09 00:00: 00 08-05 00:00 :00 No TAKE ONE TABLET BY MOUTH EVERY 8 HOURS NEEDED FOR PAIN UNRELIEVED BY NON-NARCOT IC ANALGESICS [facility] conjugated estrogens (PREMARIN) 0.625 mg/gram vaginal cream 05-10 00:00: 00 09-02 00:00 :00 No [id number] .5g Insert 0.5 g into vagina 2 (two) times a week on Monday and Monday. [facility] fluconazole (DIFLUCAN) 150 mg tablet 05-03 00:00: 00 11-01 00:00 :00 No [facility] Liberal-3 Fatty Acids (FISH OIL CONCENTRATE ) 1,000 mg Cap 04-13 00:00: 00 07-04 00:00 :00 No 1{capsu le} Take 1 capsule by mouth 2 (two) times daily with meals. [facility] tiZANidine (ZANAFLEX) 2 mg tablet 04-08 00:00: 00 05-04 00:00 :00 No [id number] 2mg Take 1 tablet by mouth every 8 (eight) hours as needed (muscle pain or spasm). [facility] lisinopril (PRINIVIL,Z ESTRIL) 20 mg tablet 04-08 00:00: 00 08-24 00:00 :00 No [id number] 20mg Take 1 tablet by mouth daily. [facility] traZODONE (DESYREL) 100 mg tablet 04-08 00:00: 00 08-22 00:00 :00 No [id number] 100mg Take 1 tablet by mouth at bedtime. [facility] SERTraline (ZOLOFT) 50 mg tablet 04-08 00:00: 00 08-22 00:00 :00 No [id number] 50mg Take 1 tablet by mouth daily. [facility] pravastatin (PRAVACHOL) 20 mg tablet 04-08 00:00: 00 08-22 00:00 :00 No [id number] 20mg Take 1 tablet by mouth at bedtime. [facility] Immunizations Ordered Immunization Name Filled Immunization Name Date Status Comments Source Influenza High Dose 2022-06-04 00:00:00 Completed [facility] Influenza High Dose 2022-06-04 00:00:00 Completed [facility] Influenza High Dose 2022-06-04 00:00:00 Completed [facility] Influenza High Dose 2022-06-04 00:00:00 Completed [facility] Influenza High Dose 2022-06-04 00:00:00 Completed [facility] Influenza High Dose 2022-06-04 00:00:00 Completed [facility] Influenza High Dose 2022-06-04 00:00:00 Completed [facility] Influenza High Dose 2022-06-04 00:00:00 Completed [facility] Influenza High Dose 2022-06-04 00:00:00 Completed [facility] Influenza High Dose 2022-06-04 00:00:00 Completed [facility] Influenza High Dose 2022-06-04 00:00:00 Completed [facility] Influenza High Dose 2022-06-04 00:00:00 Completed [facility] Influenza High Dose 2022-06-04 00:00:00 Completed [facility] Influenza High Dose 2022-06-04 00:00:00 Completed [facility] Influenza High Dose 2022-06-04 00:00:00 Completed [facility] Influenza High Dose 2022-06-04 00:00:00 Completed [facility] Influenza High Dose 2022-06-04 00:00:00 Completed [facility] Influenza High Dose 2022-06-04 00:00:00 Completed [facility] Influenza High Dose 2022-06-04 00:00:00 Completed [facility] Influenza High Dose 2022-06-04 00:00:00 Completed [facility] Influenza High Dose 2022-06-04 00:00:00 Completed [facility] Influenza High Dose 2022-06-04 00:00:00 Completed [facility] Influenza High Dose 2022-06-04 00:00:00 Completed [facility] Influenza High Dose 2022-06-04 00:00:00 Completed [facility] Influenza High Dose 2022-06-04 00:00:00 Completed [facility] Influenza High Dose 2022-06-04 00:00:00 Completed [facility] Influenza High Dose 2022-06-04 00:00:00 Completed [facility] Influenza High Dose 2022-06-04 00:00:00 Completed [facility] Influenza High Dose 2022-06-04 00:00:00 Completed [facility] Influenza High Dose 2022-06-04 00:00:00 Completed [facility] Influenza High Dose 2022-06-04 00:00:00 Completed [facility] Influenza High Dose 2022-06-04 00:00:00 Completed [facility] Influenza High Dose 2022-06-04 00:00:00 Completed [facility] Influenza High Dose 2022-06-04 00:00:00 Completed [facility] Influenza High Dose 2022-06-04 00:00:00 Completed [facility] Influenza High Dose 2022-06-04 00:00:00 Completed [facility] Influenza High Dose 2022-06-04 00:00:00 Completed [facility] Influenza High Dose 2022-06-04 00:00:00 Completed [facility] Influenza High Dose 2022-06-04 00:00:00 Completed [facility] Influenza High Dose 2022-06-04 00:00:00 Completed [facility] Influenza High Dose 2022-06-04 00:00:00 Completed [facility] SARS-COV-2 COVID-19 MODERNA 0.5ML BOOSTER VACCINE 2021-07-05 00:00:00 Completed [facility] SARS-COV-2 COVID-19 MODERNA 0.5ML BOOSTER VACCINE 2021-07-05 00:00:00 Completed [facility] SARS-COV-2 COVID-19 MODERNA 0.5ML BOOSTER VACCINE 2021-07-05 00:00:00 Completed [facility] SARS-COV-2 COVID-19 MODERNA 0.5ML BOOSTER VACCINE 2021-07-05 00:00:00 Completed [facility] SARS-COV-2 COVID-19 MODERNA 0.5ML BOOSTER VACCINE 2021-07-05 00:00:00 Completed [facility] SARS-COV-2 COVID-19 MODERNA 0.5ML BOOSTER VACCINE 2021-07-05 00:00:00 Completed [facility] SARS-COV-2 COVID-19 MODERNA 0.5ML BOOSTER VACCINE 2021-07-05 00:00:00 Completed [facility] SARS-COV-2 COVID-19 MODERNA 0.5ML BOOSTER VACCINE 2021-07-05 00:00:00 Completed [facility] SARS-COV-2 COVID-19 MODERNA 0.5ML BOOSTER VACCINE 2021-07-05 00:00:00 Completed [facility] SARS-COV-2 COVID-19 MODERNA 0.5ML BOOSTER VACCINE 2021-07-05 00:00:00 Completed [facility] SARS-COV-2 COVID-19 MODERNA 0.5ML BOOSTER VACCINE 2021-07-05 00:00:00 Completed [facility] SARS-COV-2 COVID-19 MODERNA 0.5ML BOOSTER VACCINE 2021-07-05 00:00:00 Completed [facility] SARS-COV-2 COVID-19 MODERNA 0.5ML BOOSTER VACCINE 2021-07-05 00:00:00 Completed [facility] SARS-COV-2 COVID-19 MODERNA 0.5ML BOOSTER VACCINE 2021-07-05 00:00:00 Completed [facility] SARS-COV-2 COVID-19 MODERNA 0.5ML BOOSTER VACCINE 2021-07-05 00:00:00 Completed [facility] SARS-COV-2 COVID-19 MODERNA 0.5ML BOOSTER VACCINE 2021-07-05 00:00:00 Completed [facility] SARS-COV-2 COVID-19 MODERNA 0.5ML BOOSTER VACCINE 2021-07-05 00:00:00 Completed [facility] SARS-COV-2 COVID-19 MODERNA 0.5ML BOOSTER VACCINE 2021-07-05 00:00:00 Completed [facility] SARS-COV-2 COVID-19 MODERNA 0.5ML BOOSTER VACCINE 2021-07-05 00:00:00 Completed [facility] SARS-COV-2 COVID-19 MODERNA 0.5ML BOOSTER VACCINE 2021-07-05 00:00:00 Completed [facility] SARS-COV-2 COVID-19 MODERNA 0.5ML BOOSTER VACCINE 2021-07-05 00:00:00 Completed [facility] SARS-COV-2 COVID-19 MODERNA 0.5ML BOOSTER VACCINE 2021-07-05 00:00:00 Completed [facility] SARS-COV-2 COVID-19 MODERNA 0.5ML BOOSTER VACCINE 2021-07-05 00:00:00 Completed [facility] SARS-COV-2 COVID-19 MODERNA 0.5ML BOOSTER VACCINE 2021-07-05 00:00:00 Completed [facility] SARS-COV-2 COVID-19 MODERNA 0.5ML BOOSTER VACCINE 2021-07-05 00:00:00 Completed [facility] SARS-COV-2 COVID-19 MODERNA 0.5ML BOOSTER VACCINE 2021-07-05 00:00:00 Completed [facility] SARS-COV-2 COVID-19 MODERNA 0.5ML BOOSTER VACCINE 2021-07-05 00:00:00 Completed [facility] SARS-COV-2 COVID-19 MODERNA 0.5ML BOOSTER VACCINE 2021-07-05 00:00:00 Completed [facility] SARS-COV-2 COVID-19 MODERNA 0.5ML BOOSTER VACCINE 2021-07-05 00:00:00 Completed [facility] SARS-COV-2 COVID-19 MODERNA 0.5ML BOOSTER VACCINE 2021-07-05 00:00:00 Completed [facility] SARS-COV-2 COVID-19 MODERNA 0.5ML BOOSTER VACCINE 2021-07-05 00:00:00 Completed [facility] SARS-COV-2 COVID-19 MODERNA 0.5ML BOOSTER VACCINE 2021-07-05 00:00:00 Completed [facility] SARS-COV-2 COVID-19 MODERNA 0.5ML BOOSTER VACCINE 2021-07-05 00:00:00 Completed [facility] SARS-COV-2 COVID-19 MODERNA 0.5ML BOOSTER VACCINE 2021-07-05 00:00:00 Completed [facility] SARS-COV-2 COVID-19 MODERNA 0.5ML BOOSTER VACCINE 2021-07-05 00:00:00 Completed [facility] SARS-COV-2 COVID-19 MODERNA 0.5ML BOOSTER VACCINE 2021-07-05 00:00:00 Completed [facility] SARS-COV-2 COVID-19 MODERNA 0.5ML BOOSTER VACCINE 2021-07-05 00:00:00 Completed [facility] SARS-COV-2 COVID-19 MODERNA 0.5ML BOOSTER VACCINE 2021-07-05 00:00:00 Completed [facility] SARS-COV-2 COVID-19 MODERNA 0.5ML BOOSTER VACCINE 2021-07-05 00:00:00 Completed [facility] SARS-COV-2 COVID-19 MODERNA 0.5ML BOOSTER VACCINE 2021-07-05 00:00:00 Completed [facility] SARS-COV-2 COVID-19 MODERNA 0.5ML BOOSTER VACCINE 2021-07-05 00:00:00 Completed [facility] SARS-COV-2 COVID-19 VACCINE - (MODERNA) 2020-10-13 00:00:00 Completed [facility] SARS-COV-2 COVID-19 VACCINE - (MODERNA) 2020-10-13 00:00:00 Completed [facility] SARS-COV-2 COVID-19 VACCINE - (MODERNA) 2020-10-13 00:00:00 Completed [facility] SARS-COV-2 COVID-19 VACCINE - (MODERNA) 2020-10-13 00:00:00 Completed [facility] SARS-COV-2 COVID-19 VACCINE - (MODERNA) 2020-10-13 00:00:00 Completed [facility] SARS-COV-2 COVID-19 VACCINE - (MODERNA) 2020-10-13 00:00:00 Completed [facility] SARS-COV-2 COVID-19 VACCINE - (MODERNA) 2020-10-13 00:00:00 Completed [facility] SARS-COV-2 COVID-19 VACCINE - (MODERNA) 2020-10-13 00:00:00 Completed [facility] SARS-COV-2 COVID-19 VACCINE - (MODERNA) 2020-10-13 00:00:00 Completed [facility] SARS-COV-2 COVID-19 VACCINE - (MODERNA) 2020-10-13 00:00:00 Completed [facility] SARS-COV-2 COVID-19 VACCINE - (MODERNA) 2020-10-13 00:00:00 Completed [facility] SARS-COV-2 COVID-19 VACCINE - (MODERNA) 2020-10-13 00:00:00 Completed [facility] SARS-COV-2 COVID-19 VACCINE - (MODERNA) 2020-10-13 00:00:00 Completed [facility] SARS-COV-2 COVID-19 VACCINE - (MODERNA) 2020-10-13 00:00:00 Completed [facility] SARS-COV-2 COVID-19 VACCINE - (MODERNA) 2020-10-13 00:00:00 Completed [facility] SARS-COV-2 COVID-19 VACCINE - (MODERNA) 2020-10-13 00:00:00 Completed [facility] SARS-COV-2 COVID-19 VACCINE - (MODERNA) 2020-10-13 00:00:00 Completed [facility] SARS-COV-2 COVID-19 VACCINE - (MODERNA) 2020-10-13 00:00:00 Completed [facility] SARS-COV-2 COVID-19 VACCINE - (MODERNA) 2020-10-13 00:00:00 Completed [facility] SARS-COV-2 COVID-19 VACCINE - (MODERNA) 2020-10-13 00:00:00 Completed [facility] SARS-COV-2 COVID-19 VACCINE - (MODERNA) 2020-10-13 00:00:00 Completed [facility] SARS-COV-2 COVID-19 VACCINE - (MODERNA) 2020-10-13 00:00:00 Completed [facility] SARS-COV-2 COVID-19 VACCINE - (MODERNA) 2020-10-13 00:00:00 Completed [facility] SARS-COV-2 COVID-19 VACCINE - (MODERNA) 2020-10-13 00:00:00 Completed [facility] SARS-COV-2 COVID-19 VACCINE - (MODERNA) 2020-10-13 00:00:00 Completed [facility] SARS-COV-2 COVID-19 VACCINE - (MODERNA) 2020-10-13 00:00:00 Completed [facility] SARS-COV-2 COVID-19 VACCINE - (MODERNA) 2020-10-13 00:00:00 Completed [facility] SARS-COV-2 COVID-19 VACCINE - (MODERNA) 2020-10-13 00:00:00 Completed [facility] SARS-COV-2 COVID-19 VACCINE - (MODERNA) 2020-10-13 00:00:00 Completed [facility] SARS-COV-2 COVID-19 VACCINE - (MODERNA) 2020-10-13 00:00:00 Completed [facility] SARS-COV-2 COVID-19 VACCINE - (MODERNA) 2020-10-13 00:00:00 Completed [facility] SARS-COV-2 COVID-19 VACCINE - (MODERNA) 2020-10-13 00:00:00 Completed [facility] SARS-COV-2 COVID-19 VACCINE - (MODERNA) 2020-10-13 00:00:00 Completed [facility] SARS-COV-2 COVID-19 VACCINE - (MODERNA) 2020-10-13 00:00:00 Completed [facility] SARS-COV-2 COVID-19 VACCINE - (MODERNA) 2020-10-13 00:00:00 Completed [facility] SARS-COV-2 COVID-19 VACCINE - (MODERNA) 2020-10-13 00:00:00 Completed [facility] SARS-COV-2 COVID-19 VACCINE - (MODERNA) 2020-10-13 00:00:00 Completed [facility] SARS-COV-2 COVID-19 VACCINE - (MODERNA) 2020-10-13 00:00:00 Completed [facility] SARS-COV-2 COVID-19 VACCINE - (MODERNA) 2020-10-13 00:00:00 Completed [facility] SARS-COV-2 COVID-19 VACCINE - (MODERNA) 2020-10-13 00:00:00 Completed [facility] SARS-COV-2 COVID-19 VACCINE - (MODERNA) 2020-10-13 00:00:00 Completed [facility] SARS-COV-2 COVID-19 VACCINE - (MODERNA) 2020-09-16 00:00:00 Completed [facility] SARS-COV-2 COVID-19 VACCINE - (MODERNA) 2020-09-16 00:00:00 Completed [facility] SARS-COV-2 COVID-19 VACCINE - (MODERNA) 2020-09-16 00:00:00 Completed [facility] SARS-COV-2 COVID-19 VACCINE - (MODERNA) 2020-09-16 00:00:00 Completed [facility] SARS-COV-2 COVID-19 VACCINE - (MODERNA) 2020-09-16 00:00:00 Completed [facility] SARS-COV-2 COVID-19 VACCINE - (MODERNA) 2020-09-16 00:00:00 Completed [facility] SARS-COV-2 COVID-19 VACCINE - (MODERNA) 2020-09-16 00:00:00 Completed [facility] SARS-COV-2 COVID-19 VACCINE - (MODERNA) 2020-09-16 00:00:00 Completed [facility] SARS-COV-2 COVID-19 VACCINE - (MODERNA) 2020-09-16 00:00:00 Completed [facility] SARS-COV-2 COVID-19 VACCINE - (MODERNA) 2020-09-16 00:00:00 Completed [facility] SARS-COV-2 COVID-19 VACCINE - (MODERNA) 2020-09-16 00:00:00 Completed [facility] SARS-COV-2 COVID-19 VACCINE - (MODERNA) 2020-09-16 00:00:00 Completed [facility] SARS-COV-2 COVID-19 VACCINE - (MODERNA) 2020-09-16 00:00:00 Completed [facility] SARS-COV-2 COVID-19 VACCINE - (MODERNA) 2020-09-16 00:00:00 Completed [facility] SARS-COV-2 COVID-19 VACCINE - (MODERNA) 2020-09-16 00:00:00 Completed [facility] SARS-COV-2 COVID-19 VACCINE - (MODERNA) 2020-09-16 00:00:00 Completed [facility] SARS-COV-2 COVID-19 VACCINE - (MODERNA) 2020-09-16 00:00:00 Completed [facility] SARS-COV-2 COVID-19 VACCINE - (MODERNA) 2020-09-16 00:00:00 Completed [facility] SARS-COV-2 COVID-19 VACCINE - (MODERNA) 2020-09-16 00:00:00 Completed [facility] SARS-COV-2 COVID-19 VACCINE - (MODERNA) 2020-09-16 00:00:00 Completed [facility] SARS-COV-2 COVID-19 VACCINE - (MODERNA) 2020-09-16 00:00:00 Completed [facility] SARS-COV-2 COVID-19 VACCINE - (MODERNA) 2020-09-16 00:00:00 Completed [facility] SARS-COV-2 COVID-19 VACCINE - (MODERNA) 2020-09-16 00:00:00 Completed [facility] SARS-COV-2 COVID-19 VACCINE - (MODERNA) 2020-09-16 00:00:00 Completed [facility] SARS-COV-2 COVID-19 VACCINE - (MODERNA) 2020-09-16 00:00:00 Completed [facility] SARS-COV-2 COVID-19 VACCINE - (MODERNA) 2020-09-16 00:00:00 Completed [facility] SARS-COV-2 COVID-19 VACCINE - (MODERNA) 2020-09-16 00:00:00 Completed [facility] SARS-COV-2 COVID-19 VACCINE - (MODERNA) 2020-09-16 00:00:00 Completed [facility] SARS-COV-2 COVID-19 VACCINE - (MODERNA) 2020-09-16 00:00:00 Completed [facility] SARS-COV-2 COVID-19 VACCINE - (MODERNA) 2020-09-16 00:00:00 Completed [facility] SARS-COV-2 COVID-19 VACCINE - (MODERNA) 2020-09-16 00:00:00 Completed [facility] SARS-COV-2 COVID-19 VACCINE - (MODERNA) 2020-09-16 00:00:00 Completed [facility] SARS-COV-2 COVID-19 VACCINE - (MODERNA) 2020-09-16 00:00:00 Completed [facility] SARS-COV-2 COVID-19 VACCINE - (MODERNA) 2020-09-16 00:00:00 Completed [facility] SARS-COV-2 COVID-19 VACCINE - (MODERNA) 2020-09-16 00:00:00 Completed [facility] SARS-COV-2 COVID-19 VACCINE - (MODERNA) 2020-09-16 00:00:00 Completed [facility] SARS-COV-2 COVID-19 VACCINE - (MODERNA) 2020-09-16 00:00:00 Completed [facility] SARS-COV-2 COVID-19 VACCINE - (MODERNA) 2020-09-16 00:00:00 Completed [facility] SARS-COV-2 COVID-19 VACCINE - (MODERNA) 2020-09-16 00:00:00 Completed [facility] SARS-COV-2 COVID-19 VACCINE - (MODERNA) 2020-09-16 00:00:00 Completed [facility] SARS-COV-2 COVID-19 VACCINE - (MODERNA) 2020-09-16 00:00:00 Completed [facility] Pneumococcal 13 Conjugate, PCV13 (Prevnar 13) 2017-08-03 00:00:00 Completed [facility] Pneumococcal 13 Conjugate, PCV13 (Prevnar 13) 2017-08-03 00:00:00 Completed [facility] Pneumococcal 13 Conjugate, PCV13 (Prevnar 13) 2017-08-03 00:00:00 Completed [facility] Pneumococcal 13 Conjugate, PCV13 (Prevnar 13) 2017-08-03 00:00:00 Completed [facility] Pneumococcal 13 Conjugate, PCV13 (Prevnar 13) 2017-08-03 00:00:00 Completed [facility] Pneumococcal 13 Conjugate, PCV13 (Prevnar 13) 2017-08-03 00:00:00 Completed [facility] Pneumococcal 13 Conjugate, PCV13 (Prevnar 13) 2017-08-03 00:00:00 Completed [facility] Pneumococcal 13 Conjugate, PCV13 (Prevnar 13) 2017-08-03 00:00:00 Completed [facility] Pneumococcal 13 Conjugate, PCV13 (Prevnar 13) 2017-08-03 00:00:00 Completed [facility] Pneumococcal 13 Conjugate, PCV13 (Prevnar 13) 2017-08-03 00:00:00 Completed [facility] Pneumococcal 13 Conjugate, PCV13 (Prevnar 13) 2017-08-03 00:00:00 Completed [facility] Pneumococcal 13 Conjugate, PCV13 (Prevnar 13) 2017-08-03 00:00:00 Completed [facility] Pneumococcal 13 Conjugate, PCV13 (Prevnar 13) 2017-08-03 00:00:00 Completed [facility] Pneumococcal 13 Conjugate, PCV13 (Prevnar 13) 2017-08-03 00:00:00 Completed [facility] Pneumococcal 13 Conjugate, PCV13 (Prevnar 13) 2017-08-03 00:00:00 Completed [facility] Pneumococcal 13 Conjugate, PCV13 (Prevnar 13) 2017-08-03 00:00:00 Completed [facility] Pneumococcal 13 Conjugate, PCV13 (Prevnar 13) 2017-08-03 00:00:00 Completed [facility] Pneumococcal 13 Conjugate, PCV13 (Prevnar 13) 2017-08-03 00:00:00 Completed [facility] Pneumococcal 13 Conjugate, PCV13 (Prevnar 13) 2017-08-03 00:00:00 Completed [facility] Pneumococcal 13 Conjugate, PCV13 (Prevnar 13) 2017-08-03 00:00:00 Completed [facility] Pneumococcal 13 Conjugate, PCV13 (Prevnar 13) 2017-08-03 00:00:00 Completed [facility] Pneumococcal 13 Conjugate, PCV13 (Prevnar 13) 2017-08-03 00:00:00 Completed [facility] Pneumococcal 13 Conjugate, PCV13 (Prevnar 13) 2017-08-03 00:00:00 Completed [facility] Pneumococcal 13 Conjugate, PCV13 (Prevnar 13) 2017-08-03 00:00:00 Completed [facility] Pneumococcal 13 Conjugate, PCV13 (Prevnar 13) 2017-08-03 00:00:00 Completed [facility] Pneumococcal 13 Conjugate, PCV13 (Prevnar 13) 2017-08-03 00:00:00 Completed [facility] Pneumococcal 13 Conjugate, PCV13 (Prevnar 13) 2017-08-03 00:00:00 Completed [facility] Pneumococcal 13 Conjugate, PCV13 (Prevnar 13) 2017-08-03 00:00:00 Completed [facility] Pneumococcal 13 Conjugate, PCV13 (Prevnar 13) 2017-08-03 00:00:00 Completed [facility] Pneumococcal 13 Conjugate, PCV13 (Prevnar 13) 2017-08-03 00:00:00 Completed [facility] Pneumococcal 13 Conjugate, PCV13 (Prevnar 13) 2017-08-03 00:00:00 Completed [facility] Pneumococcal 13 Conjugate, PCV13 (Prevnar 13) 2017-08-03 00:00:00 Completed [facility] Pneumococcal 13 Conjugate, PCV13 (Prevnar 13) 2017-08-03 00:00:00 Completed [facility] Pneumococcal 13 Conjugate, PCV13 (Prevnar 13) 2017-08-03 00:00:00 Completed [facility] Pneumococcal 13 Conjugate, PCV13 (Prevnar 13) 2017-08-03 00:00:00 Completed [facility] Pneumococcal 13 Conjugate, PCV13 (Prevnar 13) 2017-08-03 00:00:00 Completed [facility] Pneumococcal 13 Conjugate, PCV13 (Prevnar 13) 2017-08-03 00:00:00 Completed [facility] Pneumococcal 13 Conjugate, PCV13 (Prevnar 13) 2017-08-03 00:00:00 Completed [facility] Pneumococcal 13 Conjugate, PCV13 (Prevnar 13) 2017-08-03 00:00:00 Completed [facility] Pneumococcal 13 Conjugate, PCV13 (Prevnar 13) 2017-08-03 00:00:00 Completed [facility] Pneumococcal 13 Conjugate, PCV13 (Prevnar 13) 2017-08-03 00:00:00 Completed [facility] Pneumococcal 13 Conjugate, PCV13 (Prevnar 13) 2017-08-03 00:00:00 Completed [facility] Pneumococcal 13 Conjugate, PCV13 (Prevnar 13) 2017-08-03 00:00:00 Completed [facility] Pneumococcal 13 Conjugate, PCV13 (Prevnar 13) Unknown Completed [facility] Influenza High Dose Unknown Completed [facility] SARS-COV-2 COVID-19 VACCINE - (MODERNA) Unknown Completed [facility] SARS-COV-2 COVID-19 VACCINE - (MODERNA) Unknown Completed [facility] SARS-COV-2 COVID-19 MODERNA 0.5ML BOOSTER VACCINE Unknown Completed [facility] Pneumococcal 13 Conjugate, PCV13 (Prevnar 13) Unknown Completed [facility] Influenza High Dose Unknown Completed [facility] SARS-COV-2 COVID-19 VACCINE - (MODERNA) Unknown Completed [facility] SARS-COV-2 COVID-19 VACCINE - (MODERNA) Unknown Completed [facility] SARS-COV-2 COVID-19 MODERNA 0.5ML BOOSTER VACCINE Unknown Completed [facility] Pneumococcal 13 Conjugate, PCV13 (Prevnar 13) Unknown Completed [facility] Influenza High Dose Unknown Completed [facility] SARS-COV-2 COVID-19 VACCINE - (MODERNA) Unknown Completed [facility] SARS-COV-2 COVID-19 VACCINE - (MODERNA) Unknown Completed [facility] SARS-COV-2 COVID-19 MODERNA 0.5ML BOOSTER VACCINE Unknown Completed [facility] Pneumococcal 13 Conjugate, PCV13 (Prevnar 13) Unknown Completed [facility] Influenza High Dose Unknown Completed [facility] SARS-COV-2 COVID-19 VACCINE - (MODERNA) Unknown Completed [facility] SARS-COV-2 COVID-19 VACCINE - (MODERNA) Unknown Completed [facility] SARS-COV-2 COVID-19 MODERNA 0.5ML BOOSTER VACCINE Unknown Completed [facility] Pneumococcal 13 Conjugate, PCV13 (Prevnar 13) Unknown Completed [facility] Influenza High Dose Unknown Completed [facility] SARS-COV-2 COVID-19 VACCINE - (MODERNA) Unknown Completed [facility] SARS-COV-2 COVID-19 VACCINE - (MODERNA) Unknown Completed [facility] SARS-COV-2 COVID-19 MODERNA 0.5ML BOOSTER VACCINE Unknown Completed [facility] Pneumococcal 13 Conjugate, PCV13 (Prevnar 13) Unknown Completed [facility] Influenza High Dose Unknown Completed [facility] SARS-COV-2 COVID-19 VACCINE - (MODERNA) Unknown Completed [facility] SARS-COV-2 COVID-19 VACCINE - (MODERNA) Unknown Completed [facility] SARS-COV-2 COVID-19 MODERNA 0.5ML BOOSTER VACCINE Unknown Completed [facility] Pneumococcal 13 Conjugate, PCV13 (Prevnar 13) Unknown Completed [facility] Influenza High Dose Unknown Completed [facility] SARS-COV-2 COVID-19 VACCINE - (MODERNA) Unknown Completed [facility] SARS-COV-2 COVID-19 VACCINE - (MODERNA) Unknown Completed [facility] SARS-COV-2 COVID-19 MODERNA 0.5ML BOOSTER VACCINE Unknown Completed [facility] Pneumococcal 13 Conjugate, PCV13 (Prevnar 13) Unknown Completed [facility] Influenza High Dose Unknown Completed [facility] SARS-COV-2 COVID-19 VACCINE - (MODERNA) Unknown Completed [facility] SARS-COV-2 COVID-19 VACCINE - (MODERNA) Unknown Completed [facility] SARS-COV-2 COVID-19 MODERNA 0.5ML BOOSTER VACCINE Unknown Completed [facility] Pneumococcal 13 Conjugate, PCV13 (Prevnar 13) Unknown Completed [facility] Influenza High Dose Unknown Completed [facility] SARS-COV-2 COVID-19 VACCINE - (MODERNA) Unknown Completed [facility] SARS-COV-2 COVID-19 VACCINE - (MODERNA) Unknown Completed [facility] SARS-COV-2 COVID-19 MODERNA 0.5ML BOOSTER VACCINE Unknown Completed [facility] Pneumococcal 13 Conjugate, PCV13 (Prevnar 13) Unknown Completed [facility] Influenza High Dose Unknown Completed [facility] SARS-COV-2 COVID-19 VACCINE - (MODERNA) Unknown Completed [facility] SARS-COV-2 COVID-19 VACCINE - (MODERNA) Unknown Completed [facility] SARS-COV-2 COVID-19 MODERNA 0.5ML BOOSTER VACCINE Unknown Completed [facility] Pneumococcal 13 Conjugate, PCV13 (Prevnar 13) Unknown Completed [facility] Influenza High Dose Unknown Completed [facility] SARS-COV-2 COVID-19 VACCINE - (MODERNA) Unknown Completed [facility] SARS-COV-2 COVID-19 VACCINE - (MODERNA) Unknown Completed [facility] SARS-COV-2 COVID-19 MODERNA 0.5ML BOOSTER VACCINE Unknown Completed [facility] Pneumococcal 13 Conjugate, PCV13 (Prevnar 13) Unknown Completed [facility] Influenza High Dose Unknown Completed [facility] SARS-COV-2 COVID-19 VACCINE - (MODERNA) Unknown Completed [facility] SARS-COV-2 COVID-19 VACCINE - (MODERNA) Unknown Completed [facility] SARS-COV-2 COVID-19 MODERNA 0.5ML BOOSTER VACCINE Unknown Completed [facility] Pneumococcal 13 Conjugate, PCV13 (Prevnar 13) Unknown Completed [facility] Influenza High Dose Unknown Completed [facility] SARS-COV-2 COVID-19 VACCINE - (MODERNA) Unknown Completed [facility] SARS-COV-2 COVID-19 VACCINE - (MODERNA) Unknown Completed [facility] SARS-COV-2 COVID-19 MODERNA 0.5ML BOOSTER VACCINE Unknown Completed [facility] Pneumococcal 13 Conjugate, PCV13 (Prevnar 13) Unknown Completed [facility] Influenza High Dose Unknown Completed [facility] SARS-COV-2 COVID-19 VACCINE - (MODERNA) Unknown Completed [facility] SARS-COV-2 COVID-19 VACCINE - (MODERNA) Unknown Completed [facility] SARS-COV-2 COVID-19 MODERNA 0.5ML BOOSTER VACCINE Unknown Completed [facility] Pneumococcal 13 Conjugate, PCV13 (Prevnar 13) Unknown Completed [facility] Influenza High Dose Unknown Completed [facility] SARS-COV-2 COVID-19 VACCINE - (MODERNA) Unknown Completed [facility] SARS-COV-2 COVID-19 VACCINE - (MODERNA) Unknown Completed [facility] SARS-COV-2 COVID-19 MODERNA 0.5ML BOOSTER VACCINE Unknown Completed [facility] Pneumococcal 13 Conjugate, PCV13 (Prevnar 13) Unknown Completed [facility] Influenza High Dose Unknown Completed [facility] SARS-COV-2 COVID-19 VACCINE - (MODERNA) Unknown Completed [facility] SARS-COV-2 COVID-19 VACCINE - (MODERNA) Unknown Completed [facility] SARS-COV-2 COVID-19 MODERNA 0.5ML BOOSTER VACCINE Unknown Completed [facility] Pneumococcal 13 Conjugate, PCV13 (Prevnar 13) Unknown Completed [facility] Influenza High Dose Unknown Completed [facility] SARS-COV-2 COVID-19 VACCINE - (MODERNA) Unknown Completed [facility] SARS-COV-2 COVID-19 VACCINE - (MODERNA) Unknown Completed [facility] SARS-COV-2 COVID-19 MODERNA 0.5ML BOOSTER VACCINE Unknown Completed [facility] Pneumococcal 13 Conjugate, PCV13 (Prevnar 13) Unknown Completed [facility] Influenza High Dose Unknown Completed [facility] SARS-COV-2 COVID-19 VACCINE - (MODERNA) Unknown Completed [facility] SARS-COV-2 COVID-19 VACCINE - (MODERNA) Unknown Completed [facility] SARS-COV-2 COVID-19 MODERNA 0.5ML BOOSTER VACCINE Unknown Completed [facility] Pneumococcal 13 Conjugate, PCV13 (Prevnar 13) Unknown Completed [facility] Influenza High Dose Unknown Completed [facility] SARS-COV-2 COVID-19 VACCINE - (MODERNA) Unknown Completed [facility] SARS-COV-2 COVID-19 VACCINE - (MODERNA) Unknown Completed [facility] SARS-COV-2 COVID-19 MODERNA 0.5ML BOOSTER VACCINE Unknown Completed [facility] Pneumococcal 13 Conjugate, PCV13 (Prevnar 13) Unknown Completed [facility] Influenza High Dose Unknown Completed [facility] SARS-COV-2 COVID-19 VACCINE - (MODERNA) Unknown Completed [facility] SARS-COV-2 COVID-19 VACCINE - (MODERNA) Unknown Completed [facility] SARS-COV-2 COVID-19 MODERNA 0.5ML BOOSTER VACCINE Unknown Completed [facility] Pneumococcal 13 Conjugate, PCV13 (Prevnar 13) Unknown Completed [facility] Influenza High Dose Unknown Completed [facility] SARS-COV-2 COVID-19 VACCINE - (MODERNA) Unknown Completed [facility] SARS-COV-2 COVID-19 VACCINE - (MODERNA) Unknown Completed [facility] SARS-COV-2 COVID-19 MODERNA 0.5ML BOOSTER VACCINE Unknown Completed [facility] Pneumococcal 13 Conjugate, PCV13 (Prevnar 13) Unknown Completed [facility] Influenza High Dose Unknown Completed [facility] SARS-COV-2 COVID-19 VACCINE - (MODERNA) Unknown Completed [facility] SARS-COV-2 COVID-19 VACCINE - (MODERNA) Unknown Completed [facility] SARS-COV-2 COVID-19 MODERNA 0.5ML BOOSTER VACCINE Unknown Completed [facility] Pneumococcal 13 Conjugate, PCV13 (Prevnar 13) Unknown Completed [facility] Influenza High Dose Unknown Completed [facility] SARS-COV-2 COVID-19 VACCINE - (MODERNA) Unknown Completed [facility] SARS-COV-2 COVID-19 VACCINE - (MODERNA) Unknown Completed [facility] SARS-COV-2 COVID-19 MODERNA 0.5ML BOOSTER VACCINE Unknown Completed [facility] Pneumococcal 13 Conjugate, PCV13 (Prevnar 13) Unknown Completed [facility] Influenza High Dose Unknown Completed [facility] SARS-COV-2 COVID-19 VACCINE - (MODERNA) Unknown Completed [facility] SARS-COV-2 COVID-19 VACCINE - (MODERNA) Unknown Completed [facility] SARS-COV-2 COVID-19 MODERNA 0.5ML BOOSTER VACCINE Unknown Completed [facility] Pneumococcal 13 Conjugate, PCV13 (Prevnar 13) Unknown Completed [facility] Influenza High Dose Unknown Completed [facility] SARS-COV-2 COVID-19 VACCINE - (MODERNA) Unknown Completed [facility] SARS-COV-2 COVID-19 VACCINE - (MODERNA) Unknown Completed [facility] SARS-COV-2 COVID-19 MODERNA 0.5ML BOOSTER VACCINE Unknown Completed [facility] Pneumococcal 13 Conjugate, PCV13 (Prevnar 13) Unknown Completed [facility] Influenza High Dose Unknown Completed [facility] SARS-COV-2 COVID-19 VACCINE - (MODERNA) Unknown Completed [facility] SARS-COV-2 COVID-19 VACCINE - (MODERNA) Unknown Completed [facility] SARS-COV-2 COVID-19 MODERNA 0.5ML BOOSTER VACCINE Unknown Completed [facility] Pneumococcal 13 Conjugate, PCV13 (Prevnar 13) Unknown Completed [facility] Influenza High Dose Unknown Completed [facility] SARS-COV-2 COVID-19 VACCINE - (MODERNA) Unknown Completed [facility] TDAP Unknown Completed [facility] Pneumococcal Polysaccharide, PPSV23 (PNEUMOVAX) Unknown Completed [facility] Influenza, Trivalent, Adjuvanted Unknown Completed [facility] Influenza High Dose Quad Unknown Completed [facility] Influenza High Dose Quad Unknown Completed [facility] Hep B, Adol or Pedi Dosage Unknown Completed [facility] Hep B, Adol or Pedi Dosage Unknown Completed [facility] HEP B, Adult Dosage Unknown Completed [facility] HEPATITIS A Unknown Completed [facility] HEPATITIS A Unknown Completed [facility] Flu Trivalent Unknown Completed [facility] Pneumococcal 13 Conjugate, PCV13 (Prevnar 13) Unknown Completed [facility] Influenza High Dose Unknown Completed [facility] SARS-COV-2 COVID-19 VACCINE - (MODERNA) Unknown Completed [facility] SARS-COV-2 COVID-19 VACCINE - (MODERNA) Unknown Completed [facility] SARS-COV-2 COVID-19 MODERNA 0.5ML BOOSTER VACCINE Unknown Completed [facility] Pneumococcal 13 Conjugate, PCV13 (Prevnar 13) Unknown Completed [facility] Influenza High Dose Unknown Completed [facility] SARS-COV-2 COVID-19 VACCINE - (MODERNA) Unknown Completed [facility] TDAP Unknown Completed [facility] Pneumococcal Polysaccharide, PPSV23 (PNEUMOVAX) Unknown Completed [facility] Influenza, Trivalent, Adjuvanted Unknown Completed [facility] Influenza High Dose Quad Unknown Completed [facility] Influenza High Dose Quad Unknown Completed [facility] Hep B, Adol or Pedi Dosage Unknown Completed [facility] Hep B, Adol or Pedi Dosage Unknown Completed [facility] HEP B, Adult Dosage Unknown Completed [facility] HEPATITIS A Unknown Completed [facility] HEPATITIS A Unknown Completed [facility] Flu Trivalent Unknown [facility] Pneumococcal [facility] Conjugate, PCV13 (Prevnar 13) Unknown Completed [facility] Influenza High Dose Unknown Completed [facility] SARS-COV-2 COVID-19 VACCINE - (MODERNA) Unknown Completed [facility] SARS-COV-2 COVID-19 VACCINE - (MODERNA) Unknown Completed [facility] SARS-COV-2 COVID-19 MODERNA 0.5ML BOOSTER VACCINE Unknown Completed [facility] Pneumococcal 13 Conjugate, PCV13 (Prevnar 13) Unknown Completed [facility] Influenza High Dose Unknown Completed [facility] SARS-COV-2 COVID-19 VACCINE - (MODERNA) Unknown Completed [facility] TDAP Unknown Completed [facility] Pneumococcal Polysaccharide, PPSV23 (PNEUMOVAX) Unknown Completed [facility] Influenza, Trivalent, Adjuvanted Unknown Completed [facility] Influenza High Dose Quad Unknown Completed [facility] Influenza High Dose Quad Unknown Completed [facility] Hep B, Adol or Pedi Dosage Unknown Completed [facility] Hep B, Adol or Pedi Dosage Unknown Completed [facility] HEP B, Adult Dosage Unknown Completed [facility] HEPATITIS A Unknown Completed [facility] HEPATITIS A Unknown Completed [facility] Flu Trivalent Unknown Completed [facility] Pneumococcal 13 Conjugate, PCV13 (Prevnar 13) Unknown Completed [facility] Influenza High Dose Unknown Completed [facility] SARS-COV-2 COVID-19 VACCINE - (MODERNA) Unknown Completed [facility] SARS-COV-2 COVID-19 VACCINE - (MODERNA) Unknown Completed [facility] SARS-COV-2 COVID-19 MODERNA 0.5ML BOOSTER VACCINE Unknown Completed [facility] Pneumococcal 13 Conjugate, PCV13 (Prevnar 13) Unknown Completed [facility] Influenza High Dose Unknown Completed [facility] SARS-COV-2 COVID-19 VACCINE - (MODERNA) Unknown Completed [facility] TDAP Unknown Completed [facility] Pneumococcal Polysaccharide, PPSV23 (PNEUMOVAX) Unknown Completed [facility] Influenza, Trivalent, Adjuvanted Unknown Completed [facility] Influenza High Dose Quad Unknown Completed [facility] Influenza High Dose Quad Unknown Completed [facility] Hep B, Adol or Pedi Dosage Unknown Completed [facility] Hep B, Adol or Pedi Dosage Unknown Completed [facility] HEP B, Adult Dosage Unknown Completed [facility] HEPATITIS A Unknown Completed [facility] HEPATITIS A Unknown Completed [facility] Flu Trivalent Unknown Completed [facility] Pneumococcal 13 Conjugate, PCV13 (Prevnar 13) Unknown Completed [facility] Influenza High Dose Unknown Completed [facility] SARS-COV-2 COVID-19 VACCINE - (MODERNA) Unknown Completed [facility] SARS-COV-2 COVID-19 VACCINE - (MODERNA) Unknown Completed [facility] SARS-COV-2 COVID-19 MODERNA 0.5ML BOOSTER VACCINE Unknown Completed [facility] Pneumococcal 13 Conjugate, PCV13 (Prevnar 13) Unknown Completed [facility] Influenza High Dose Unknown Completed [facility] SARS-COV-2 COVID-19 VACCINE - (MODERNA) Unknown Completed [facility] TDAP Unknown Completed [facility] Pneumococcal Polysaccharide, PPSV23 (PNEUMOVAX) Unknown Completed [facility] Influenza, Trivalent, Adjuvanted Unknown Completed [facility] Influenza High Dose Quad Unknown Completed [facility] Influenza High Dose Quad Unknown Completed [facility] Hep B, Adol or Pedi Dosage Unknown Completed [facility] Hep B, Adol or Pedi Dosage Unknown Completed [facility] HEP B, Adult Dosage Unknown Completed [facility] HEPATITIS A Unknown Completed [facility] HEPATITIS A Unknown Completed [facility] Flu Trivalent Unknown Completed [facility] Pneumococcal 13 Conjugate, PCV13 (Prevnar 13) Unknown Completed [facility] Influenza High Dose Unknown Completed [facility] SARS-COV-2 COVID-19 VACCINE - (MODERNA) Unknown Completed [facility] SARS-COV-2 COVID-19 VACCINE - (MODERNA) Unknown Completed [facility] SARS-COV-2 COVID-19 MODERNA 0.5ML BOOSTER VACCINE Unknown Completed [facility] Pneumococcal 13 Conjugate, PCV13 (Prevnar 13) Unknown Completed [facility] Influenza High Dose Unknown Completed [facility] SARS-COV-2 COVID-19 VACCINE - (MODERNA) Unknown Completed [facility] TDAP Unknown Completed [facility] Pneumococcal Polysaccharide, PPSV23 (PNEUMOVAX) Unknown Completed [facility] Influenza, Trivalent, Adjuvanted Unknown Completed [facility] Influenza High Dose Quad Unknown Completed [facility] Influenza High Dose Quad Unknown Completed [facility] Hep B, Adol or Pedi Dosage Unknown Completed [facility] Hep B, Adol or Pedi Dosage Unknown Completed [facility] HEP B, Adult Dosage Unknown Completed [facility] HEPATITIS A Unknown Completed [facility] HEPATITIS A Unknown Completed [facility] Flu Trivalent Unknown Completed [facility] Pneumococcal 13 Conjugate, PCV13 (Prevnar 13) Unknown Completed [facility] Influenza High Dose Unknown Completed [facility] SARS-COV-2 COVID-19 VACCINE - (MODERNA) Unknown Completed [facility] SARS-COV-2 COVID-19 VACCINE - (MODERNA) Unknown Completed [facility] SARS-COV-2 COVID-19 MODERNA 0.5ML BOOSTER VACCINE Unknown Completed [facility] Pneumococcal 13 Conjugate, PCV13 (Prevnar 13) Unknown Completed [facility] Influenza High Dose Unknown Completed [facility] SARS-COV-2 COVID-19 VACCINE - (MODERNA) Unknown Completed [facility] TDAP Unknown Completed [facility] Pneumococcal Polysaccharide, PPSV23 (PNEUMOVAX) Unknown Completed [facility] Influenza, Trivalent, Adjuvanted Unknown Completed [facility] Influenza High Dose Quad Unknown Completed [facility] Influenza High Dose Quad Unknown Completed [facility] Hep B, Adol or Pedi Dosage Unknown Completed [facility] Hep B, Adol or Pedi Dosage Unknown Completed [facility] HEP B, Adult Dosage Unknown Completed [facility] HEPATITIS A Unknown Completed [facility] HEPATITIS A Unknown Completed [facility] Flu Trivalent Unknown Completed [facility] Pneumococcal 13 Conjugate, PCV13 (Prevnar 13) Unknown Completed [facility] Influenza High Dose Unknown Completed [facility] SARS-COV-2 COVID-19 VACCINE - (MODERNA) Unknown Completed [facility] SARS-COV-2 COVID-19 VACCINE - (MODERNA) Unknown Completed [facility] SARS-COV-2 COVID-19 MODERNA 0.5ML BOOSTER VACCINE Unknown Completed [facility] Pneumococcal 13 Conjugate, PCV13 (Prevnar 13) Unknown Completed [facility] Influenza High Dose Unknown Completed [facility] SARS-COV-2 COVID-19 VACCINE - (MODERNA) Unknown Completed [facility] TDAP Unknown Completed [facility] Pneumococcal Polysaccharide, PPSV23 (PNEUMOVAX) Unknown Completed [facility] Influenza, Trivalent, Adjuvanted Unknown Completed [facility] Influenza High Dose Quad Unknown Completed [facility] Influenza High Dose Quad Unknown Completed [facility] Hep B, Adol or Pedi Dosage Unknown Completed [facility] Hep B, Adol or Pedi Dosage Unknown Completed [facility] HEP B, Adult Dosage Unknown Completed [facility] HEPATITIS A Unknown Completed [facility] HEPATITIS A Unknown Completed [facility] Flu Trivalent Unknown Completed [facility] Pneumococcal 13 Conjugate, PCV13 (Prevnar 13) Unknown Completed [facility] Influenza High Dose Unknown Completed [facility] SARS-COV-2 COVID-19 VACCINE - (MODERNA) Unknown Completed [facility] SARS-COV-2 COVID-19 VACCINE - (MODERNA) Unknown Completed [facility] SARS-COV-2 COVID-19 MODERNA 0.5ML BOOSTER VACCINE Unknown Completed [facility] Pneumococcal 13 Conjugate, PCV13 (Prevnar 13) Unknown Completed [facility] Influenza High Dose Unknown Completed [facility] SARS-COV-2 COVID-19 VACCINE - (MODERNA) Unknown [facility] Completed [facility] Pneumococcal Polysaccharide, PPSV23 (PNEUMOVAX) Unknown Completed [facility] Influenza, Trivalent, Adjuvanted Unknown Completed [facility] Influenza High Dose Quad Unknown Completed [facility] Influenza High Dose Quad Unknown Completed [facility] Hep B, Adol or Pedi Dosage Unknown Completed [facility] Hep B, Adol or Pedi Dosage Unknown Completed [facility] HEP B, Adult Dosage Unknown Completed [facility] HEPATITIS A Unknown Completed [facility] HEPATITIS A Unknown Completed [facility] Flu Trivalent Unknown Completed [facility] Pneumococcal 13 Conjugate, PCV13 (Prevnar 13) Unknown Completed [facility] Influenza High Dose Unknown Completed [facility] SARS-COV-2 COVID-19 VACCINE - (MODERNA) Unknown Completed [facility] SARS-COV-2 COVID-19 VACCINE - (MODERNA) Unknown Completed [facility] SARS-COV-2 COVID-19 MODERNA 0.5ML BOOSTER VACCINE Unknown Completed [facility] Pneumococcal 13 Conjugate, PCV13 (Prevnar 13) Unknown Completed [facility] Influenza High Dose Unknown Completed [facility] SARS-COV-2 COVID-19 VACCINE - (MODERNA) Unknown Completed [facility] TDAP Unknown Completed [facility] Pneumococcal Polysaccharide, PPSV23 (PNEUMOVAX) Unknown Completed [facility] Influenza, Trivalent, Adjuvanted Unknown Completed [facility] Influenza High Dose Quad Unknown Completed [facility] Influenza High Dose Quad Unknown Completed [facility] Hep B, Adol or Pedi Dosage Unknown Completed [facility] Hep B, Adol or Pedi Dosage Unknown Completed [facility] HEP B, Adult Dosage Unknown Completed [facility] HEPATITIS A Unknown Completed [facility] HEPATITIS A Unknown Completed [facility] Flu Trivalent Unknown Completed [facility] Pneumococcal 13 Conjugate, PCV13 (Prevnar 13) Unknown Completed [facility] Influenza High Dose Unknown Completed [facility] SARS-COV-2 COVID-19 VACCINE - (MODERNA) Unknown Completed [facility] SARS-COV-2 COVID-19 VACCINE - (MODERNA) Unknown Completed [facility] SARS-COV-2 COVID-19 MODERNA 0.5ML BOOSTER VACCINE Unknown Completed [facility] Pneumococcal 13 Conjugate, PCV13 (Prevnar 13) Unknown Completed [facility] Influenza High Dose Unknown Completed [facility] SARS-COV-2 COVID-19 VACCINE - (MODERNA) Unknown Completed [facility] TDAP Unknown Completed [facility] Pneumococcal Polysaccharide, PPSV23 (PNEUMOVAX) Unknown Completed [facility] Influenza, Trivalent, Adjuvanted Unknown Completed [facility] Influenza High Dose Quad Unknown Completed [facility] Influenza High Dose Quad Unknown Completed [facility] Hep B, Adol or Pedi Dosage Unknown Completed [facility] Hep B, Adol or Pedi Dosage Unknown Completed [facility] HEP B, Adult Dosage Unknown Completed [facility] HEPATITIS A Unknown Completed [facility] HEPATITIS A Unknown Completed [facility] Flu Trivalent Unknown Completed [facility] Pneumococcal 13 Conjugate, PCV13 (Prevnar 13) Unknown Completed [facility] Influenza High Dose Unknown Completed [facility] SARS-COV-2 COVID-19 VACCINE - (MODERNA) Unknown Completed [facility] SARS-COV-2 COVID-19 VACCINE - (MODERNA) Unknown Completed [facility] SARS-COV-2 COVID-19 MODERNA 0.5ML BOOSTER VACCINE Unknown Completed [facility] Pneumococcal 13 Conjugate, PCV13 (Prevnar 13) Unknown Completed [facility] Influenza High Dose Unknown Completed [facility] SARS-COV-2 COVID-19 VACCINE - (MODERNA) Unknown Completed [facility] TDAP Unknown Completed [facility] Pneumococcal Polysaccharide, PPSV23 (PNEUMOVAX) Unknown Completed [facility] Influenza, Trivalent, Adjuvanted Unknown Completed [facility] Influenza High Dose Quad Unknown Completed [facility] Influenza High Dose Quad Unknown Completed [facility] Hep B, Adol or Pedi Dosage Unknown Completed [facility] Hep B, Adol or Pedi Dosage Unknown Completed [facility] HEP B, Adult Dosage Unknown Completed [facility] HEPATITIS A Unknown Completed [facility] HEPATITIS A Unknown Completed [facility] Flu Trivalent Unknown Completed [facility] Pneumococcal 13 Conjugate, PCV13 (Prevnar 13) Unknown Completed [facility] Influenza High Dose Unknown Completed [facility] SARS-COV-2 COVID-19 VACCINE - (MODERNA) Unknown Completed [facility] SARS-COV-2 COVID-19 VACCINE - (MODERNA) Unknown Completed [facility] SARS-COV-2 COVID-19 MODERNA 0.5ML BOOSTER VACCINE Unknown Completed [facility] Pneumococcal 13 Conjugate, PCV13 (Prevnar 13) Unknown Completed [facility] Influenza High Dose Unknown Completed [facility] SARS-COV-2 COVID-19 VACCINE - (MODERNA) Unknown Completed [facility] TDAP Unknown Completed [facility] Pneumococcal Polysaccharide, PPSV23 (PNEUMOVAX) Unknown Completed [facility] Influenza, Trivalent, Adjuvanted Unknown Completed [facility] Influenza High Dose Quad Unknown Completed [facility] Influenza High Dose Quad Unknown Completed [facility] Hep B, Adol or Pedi Dosage Unknown Completed [facility] Hep B, Adol or Pedi Dosage Unknown Completed [facility] HEP B, Adult Dosage Unknown Completed [facility] HEPATITIS A Unknown Completed [facility] HEPATITIS A Unknown Completed [facility] Flu Trivalent Unknown Completed [facility] Pneumococcal 13 Conjugate, PCV13 (Prevnar 13) Unknown Completed [facility] Influenza High Dose Unknown Completed [facility] SARS-COV-2 COVID-19 VACCINE - (MODERNA) Unknown Completed [facility] SARS-COV-2 COVID-19 VACCINE - (MODERNA) Unknown Completed [facility] SARS-COV-2 COVID-19 MODERNA 0.5ML BOOSTER VACCINE Unknown Completed [facility] Pneumococcal 13 Conjugate, PCV13 (Prevnar 13) Unknown Completed [facility] Influenza High Dose Unknown Completed [facility] SARS-COV-2 COVID-19 VACCINE - (MODERNA) Unknown Completed [facility] TDAP Unknown Completed [facility] Pneumococcal Polysaccharide, PPSV23 (PNEUMOVAX) Unknown Completed [facility] Influenza, Trivalent, Adjuvanted Unknown Completed [facility] Influenza High Dose Quad Unknown Completed [facility] Influenza High Dose Quad Unknown Completed [facility] Hep B, Adol or Pedi Dosage Unknown Completed [facility] Hep B, Adol or Pedi Dosage Unknown Completed [facility] HEP B, Adult Dosage Unknown Completed [facility] HEPATITIS A Unknown Completed [facility] HEPATITIS A Unknown Completed [facility] Flu Trivalent Unknown Completed [facility] Pneumococcal 13 Conjugate, PCV13 (Prevnar 13) Unknown Completed [facility] Influenza High Dose Unknown Completed [facility] SARS-COV-2 COVID-19 VACCINE - (MODERNA) Unknown Completed [facility] SARS-COV-2 COVID-19 VACCINE - (MODERNA) Unknown Completed [facility] SARS-COV-2 COVID-19 MODERNA 0.5ML BOOSTER VACCINE Unknown Completed [facility] Pneumococcal 13 Conjugate, PCV13 (Prevnar 13) Unknown Completed [facility] Influenza High Dose Unknown Completed [facility] SARS-COV-2 COVID-19 VACCINE - (MODERNA) Unknown Completed [facility] TDAP Unknown Completed [facility] Pneumococcal Polysaccharide, PPSV23 (PNEUMOVAX) Unknown Completed [facility] Influenza, Trivalent, Adjuvanted Unknown Completed [facility] Influenza High Dose Quad Unknown Completed [facility] Influenza High Dose Quad Unknown Completed [facility] Hep B, Adol or Pedi Dosage Unknown Completed [facility] Hep B, Adol or Pedi Dosage Unknown Completed [facility] HEP B, Adult Dosage Unknown Completed [facility] HEPATITIS A Unknown Completed [facility] HEPATITIS A Unknown Completed [facility] Flu Trivalent Unknown Completed [facility] Pneumococcal 13 Conjugate, PCV13 (Prevnar 13) Unknown Completed [facility] Influenza High Dose Unknown Completed [facility] SARS-COV-2 COVID-19 VACCINE - (MODERNA) Unknown Completed [facility] SARS-COV-2 COVID-19 VACCINE - (MODERNA) Unknown Completed [facility] SARS-COV-2 COVID-19 MODERNA 0.5ML BOOSTER VACCINE Unknown Completed [facility] Pneumococcal 13 Conjugate, PCV13 (Prevnar 13) Unknown Completed [facility] Influenza High Dose Unknown Completed [facility] SARS-COV-2 COVID-19 VACCINE - (MODERNA) Unknown Completed [facility] TDAP Unknown Completed [facility] Pneumococcal Polysaccharide, PPSV23 (PNEUMOVAX) Unknown Completed [facility] Influenza, Trivalent, Adjuvanted Unknown Completed [facility] Influenza High Dose Quad Unknown Completed [facility] Influenza High Dose Quad Unknown Completed [facility] Hep B, Adol or Pedi Dosage Unknown Completed [facility] Hep B, Adol or Pedi Dosage Unknown Completed [facility] HEP B, Adult Dosage Unknown Completed [facility] HEPATITIS A Unknown Completed [facility] HEPATITIS A Unknown Completed [facility] Flu Trivalent Unknown Completed [facility] Pneumococcal 13 Conjugate, PCV13 (Prevnar 13) Unknown Completed [facility] Influenza High Dose Unknown Completed [facility] SARS-COV-2 COVID-19 VACCINE - (MODERNA) Unknown Completed [facility] SARS-COV-2 COVID-19 VACCINE - (MODERNA) Unknown Completed [facility] SARS-COV-2 COVID-19 MODERNA 0.5ML BOOSTER VACCINE Unknown Completed [facility] Pneumococcal 13 Conjugate, PCV13 (Prevnar 13) Unknown Completed [facility] Influenza High Dose Unknown Completed [facility] SARS-COV-2 COVID-19 VACCINE - (MODERNA) Unknown Completed [facility] TDAP Unknown Completed [facility] Pneumococcal Polysaccharide, PPSV23 (PNEUMOVAX) Unknown Completed [facility] Influenza, Trivalent, Adjuvanted Unknown Completed [facility] Influenza High Dose Quad Unknown Completed [facility] Influenza High Dose Quad Unknown Completed [facility] Hep B, Adol or Pedi Dosage Unknown Completed [facility] Hep B, Adol or Pedi Dosage Unknown Completed [facility] HEP B, Adult Dosage Unknown Completed [facility] HEPATITIS A Unknown Completed [facility] HEPATITIS A Unknown Completed [facility] Flu Trivalent Unknown Completed [facility] Pneumococcal 13 Conjugate, PCV13 (Prevnar 13) Unknown Completed [facility] Influenza High Dose Unknown Completed [facility] SARS-COV-2 COVID-19 VACCINE - (MODERNA) Unknown Completed [facility] SARS-COV-2 COVID-19 VACCINE - (MODERNA) Unknown Completed [facility] SARS-COV-2 COVID-19 MODERNA 0.5ML BOOSTER VACCINE Unknown Completed [facility] Pneumococcal 13 Conjugate, PCV13 (Prevnar 13) Unknown Completed [facility] Influenza High Dose Unknown Completed [facility] SARS-COV-2 COVID-19 VACCINE - (MODERNA) Unknown Completed [facility] TDAP Unknown Completed [facility] Pneumococcal Polysaccharide, PPSV23 (PNEUMOVAX) Unknown Completed [facility] Influenza, Trivalent, Adjuvanted Unknown Completed [facility] Influenza High Dose Quad Unknown Completed [facility] Influenza High Dose Quad Unknown Completed [facility] Hep B, Adol or Pedi Dosage Unknown Completed [facility] Hep B, Adol or Pedi Dosage Unknown Completed [facility] HEP B, Adult Dosage Unknown Completed [facility] HEPATITIS A Unknown Completed [facility] HEPATITIS A Unknown Completed [facility] Flu Trivalent Unknown Completed [facility] Pneumococcal 13 Conjugate, PCV13 (Prevnar 13) Unknown Completed [facility] Influenza High Dose Unknown Completed [facility] SARS-COV-2 COVID-19 VACCINE - (MODERNA) Unknown Completed [facility] SARS-COV-2 COVID-19 VACCINE - (MODERNA) Unknown Completed [facility] SARS-COV-2 COVID-19 MODERNA 0.5ML BOOSTER VACCINE Unknown Completed [facility] Pneumococcal 13 Conjugate, PCV13 (Prevnar 13) Unknown Completed [facility] Influenza High Dose Unknown Completed [facility] SARS-COV-2 COVID-19 VACCINE - (MODERNA) Unknown [facility] TD[facility] Completed [facility] Pneumococcal Polysaccharide, PPSV23 (PNEUMOVAX) Unknown Completed [facility] Influenza, Trivalent, Adjuvanted Unknown Completed [facility] Influenza High Dose Quad Unknown Completed [facility] Influenza High Dose Quad Unknown Completed [facility] Hep B, Adol or Pedi Dosage Unknown Completed [facility] Hep B, Adol or Pedi Dosage Unknown Completed [facility] HEP B, Adult Dosage Unknown Completed [facility] HEPATITIS A Unknown Completed [facility] HEPATITIS A Unknown Completed [facility] Flu Trivalent Unknown Completed [facility] Pneumococcal 13 Conjugate, PCV13 (Prevnar 13) Unknown Completed [facility] Influenza High Dose Unknown Completed [facility] SARS-COV-2 COVID-19 VACCINE - (MODERNA) Unknown Completed [facility] SARS-COV-2 COVID-19 VACCINE - (MODERNA) Unknown Completed [facility] SARS-COV-2 COVID-19 MODERNA 0.5ML BOOSTER VACCINE Unknown Completed [facility] Pneumococcal 13 Conjugate, PCV13 (Prevnar 13) Unknown Completed [facility] Influenza High Dose Unknown Completed [facility] SARS-COV-2 COVID-19 VACCINE - (MODERNA) Unknown Completed [facility] TDAP Unknown Completed [facility] Pneumococcal Polysaccharide, PPSV23 (PNEUMOVAX) Unknown Completed [facility] Influenza, Trivalent, Adjuvanted Unknown Completed [facility] Influenza High Dose Quad Unknown Completed [facility] Influenza High Dose Quad Unknown Completed [facility] Hep B, Adol or Pedi Dosage Unknown Completed [facility] Hep B, Adol or Pedi Dosage Unknown Completed [facility] HEP B, Adult Dosage Unknown Completed [facility] HEPATITIS A Unknown Completed [facility] HEPATITIS A Unknown Completed [facility] Flu Trivalent Unknown Completed [facility] Pneumococcal 13 Conjugate, PCV13 (Prevnar 13) Unknown Completed [facility] Influenza High Dose Unknown Completed [facility] SARS-COV-2 COVID-19 VACCINE - (MODERNA) Unknown Completed [facility] SARS-COV-2 COVID-19 VACCINE - (MODERNA) Unknown Completed [facility] SARS-COV-2 COVID-19 MODERNA 0.5ML BOOSTER VACCINE Unknown Completed [facility] Pneumococcal 13 Conjugate, PCV13 (Prevnar 13) Unknown Completed [facility] Influenza High Dose Unknown Completed [facility] SARS-COV-2 COVID-19 VACCINE - (MODERNA) Unknown Completed [facility] TDAP Unknown Completed [facility] Pneumococcal Polysaccharide, PPSV23 (PNEUMOVAX) Unknown Completed [facility] Influenza, Trivalent, Adjuvanted Unknown Completed [facility] Influenza High Dose Quad Unknown Completed [facility] Influenza High Dose Quad Unknown Completed [facility] Hep B, Adol or Pedi Dosage Unknown Completed [facility] Hep B, Adol or Pedi Dosage Unknown Completed [facility] HEP B, Adult Dosage Unknown Completed [facility] HEPATITIS A Unknown Completed [facility] HEPATITIS A Unknown Completed [facility] Flu Trivalent Unknown Completed [facility] Pneumococcal 13 Conjugate, PCV13 (Prevnar 13) Unknown Completed [facility] Influenza High Dose Unknown Completed [facility] SARS-COV-2 COVID-19 VACCINE - (MODERNA) Unknown Completed [facility] SARS-COV-2 COVID-19 VACCINE - (MODERNA) Unknown Completed [facility] SARS-COV-2 COVID-19 MODERNA 0.5ML BOOSTER VACCINE Unknown Completed [facility] Pneumococcal 13 Conjugate, PCV13 (Prevnar 13) Unknown Completed [facility] Influenza High Dose Unknown Completed [facility] SARS-COV-2 COVID-19 VACCINE - (MODERNA) Unknown Completed [facility] TDAP Unknown Completed [facility] Pneumococcal Polysaccharide, PPSV23 (PNEUMOVAX) Unknown Completed [facility] Influenza, Trivalent, Adjuvanted Unknown Completed [facility] Influenza High Dose Quad Unknown Completed [facility] Influenza High Dose Quad Unknown Completed [facility] Hep B, Adol or Pedi Dosage Unknown Completed [facility] Hep B, Adol or Pedi Dosage Unknown Completed [facility] HEP B, Adult Dosage Unknown Completed [facility] HEPATITIS A Unknown Completed [facility] HEPATITIS A Unknown Completed [facility] Flu Trivalent Unknown Completed [facility] Pneumococcal 13 Conjugate, PCV13 (Prevnar 13) Unknown Completed [facility] [facility] Influenza High Dose Unknown Completed [facility] SARS-COV-2 COVID-19 VACCINE - (MODERNA) Unknown Completed [facility] SARS-COV-2 COVID-19 VACCINE - (MODERNA) Unknown Completed [facility] SARS-COV-2 COVID-19 MODERNA 0.5ML BOOSTER VACCINE Unknown Completed [facility] Pneumococcal 13 Conjugate, PCV13 (Prevnar 13) Unknown Completed [facility] Influenza High Dose Unknown Completed [facility] SARS-COV-2 COVID-19 VACCINE - (MODERNA) Unknown Completed [facility] TDAP Unknown Completed [facility] Pneumococcal Polysaccharide, PPSV23 (PNEUMOVAX) Unknown Completed [facility] Influenza, Trivalent, Adjuvanted Unknown Completed [facility] Influenza High Dose Quad Unknown Completed [facility] Influenza High Dose Quad Unknown Completed [facility] Hep B, Adol or Pedi Dosage Unknown Completed [facility] Hep B, Adol or Pedi Dosage Unknown Completed [facility] HEP B, Adult Dosage Unknown Completed [facility] HEPATITIS A Unknown Completed [facility] HEPATITIS A Unknown Completed [facility] Flu Trivalent Unknown Completed [facility] Pneumococcal 13 Conjugate, PCV13 (Prevnar 13) Unknown Completed [facility] Influenza High Dose Unknown Completed [facility] SARS-COV-2 COVID-19 VACCINE - (MODERNA) Unknown Completed [facility] SARS-COV-2 COVID-19 VACCINE - (MODERNA) Unknown Completed [facility] SARS-COV-2 COVID-19 MODERNA 0.5ML BOOSTER VACCINE Unknown Completed [facility] Pneumococcal 13 Conjugate, PCV13 (Prevnar 13) Unknown Completed [facility] Influenza High Dose Unknown Completed [facility] SARS-COV-2 COVID-19 VACCINE - (MODERNA) Unknown [facility] Completed [facility] Pneumococcal Polysaccharide, PPSV23 (PNEUMOVAX) Unknown Completed [facility] Influenza, Trivalent, Adjuvanted Unknown Completed [facility] Influenza High Dose Quad Unknown Completed [facility] Influenza High Dose Quad Unknown Completed [facility] Hep B, Adol or Pedi Dosage Unknown Completed [facility] Hep B, Adol or Pedi Dosage Unknown Completed [facility] HEP B, Adult Dosage Unknown Completed [facility] HEPATITIS A Unknown Completed [facility] HEPATITIS A Unknown Completed [facility] Flu Trivalent Unknown Completed [facility] Pneumococcal 13 Conjugate, PCV13 (Prevnar 13) Unknown Completed [facility] Influenza High Dose Unknown Completed [facility] SARS-COV-2 COVID-19 VACCINE - (MODERNA) Unknown Completed [facility] SARS-COV-2 COVID-19 VACCINE - (MODERNA) Unknown Completed [facility] SARS-COV-2 COVID-19 MODERNA 0.5ML BOOSTER VACCINE Unknown Completed [facility] Pneumococcal 13 Conjugate, PCV13 (Prevnar 13) Unknown Completed [facility] Influenza High Dose Unknown Completed [facility] SARS-COV-2 COVID-19 VACCINE - (MODERNA) Unknown Completed [facility] TDAP Unknown Completed [facility] Pneumococcal Polysaccharide, PPSV23 (PNEUMOVAX) Unknown Completed [facility] Influenza, Trivalent, Adjuvanted Unknown Completed [facility] Influenza High Dose Quad Unknown Completed [facility] Influenza High Dose Quad Unknown Completed [facility] Hep B, Adol or Pedi Dosage Unknown Completed [facility] Hep B, Adol or Pedi Dosage Unknown Completed [facility] HEP B, Adult Dosage Unknown Completed [facility] HEPATITIS A Unknown Completed [facility] HEPATITIS A Unknown Completed [facility] Flu Trivalent Unknown Completed [facility] Pneumococcal 13 Conjugate, PCV13 (Prevnar 13) Unknown Completed [facility] Influenza High Dose Unknown Completed [facility] SARS-COV-2 COVID-19 VACCINE - (MODERNA) Unknown Completed [facility] SARS-COV-2 COVID-19 VACCINE - (MODERNA) Unknown Completed [facility] SARS-COV-2 COVID-19 MODERNA 0.5ML BOOSTER VACCINE Unknown Completed [facility] Pneumococcal 13 Conjugate, PCV13 (Prevnar 13) Unknown Completed [facility] Influenza High Dose Unknown Completed [facility] SARS-COV-2 COVID-19 VACCINE - (MODERNA) Unknown Completed [facility] TDAP Unknown Completed [facility] Pneumococcal Polysaccharide, PPSV23 (PNEUMOVAX) Unknown Completed [facility] Influenza, Trivalent, Adjuvanted Unknown Completed [facility] Influenza High Dose Quad Unknown Completed [facility] Influenza High Dose Quad Unknown Completed [facility] Hep B, Adol or Pedi Dosage Unknown Completed [facility] Hep B, Adol or Pedi Dosage Unknown Completed [facility] HEP B, Adult Dosage Unknown Completed [facility] HEPATITIS A Unknown Completed [facility] HEPATITIS A Unknown Completed [facility] Flu Trivalent Unknown Completed [facility] TDAP Unknown Completed [facility] Influenza Virus Vaccine,quad Im,preserve Free 65+ (FLUAD) Unknown Completed [facility] Zoster Vaccine Recombinant Unknown Completed [facility] Zoster Vaccine Recombinant Unknown Completed [facility] Pneumococcal 13 Conjugate, PCV13 (Prevnar 13) Unknown Completed [facility] Influenza High Dose Unknown Completed [facility] SARS-COV-2 COVID-19 VACCINE - (MODERNA) Unknown Completed [facility] SARS-COV-2 COVID-19 VACCINE - (MODERNA) Unknown Completed [facility] SARS-COV-2 COVID-19 MODERNA 0.5ML BOOSTER VACCINE Unknown Completed [facility] Pneumococcal 13 Conjugate, PCV13 (Prevnar 13) Unknown Completed [facility] Influenza High Dose Unknown Completed [facility] SARS-COV-2 COVID-19 VACCINE - (MODERNA) Unknown Completed [facility] TDAP Unknown Completed [facility] Pneumococcal Polysaccharide, PPSV23 (PNEUMOVAX) Unknown Completed [facility] Influenza, Trivalent, Adjuvanted Unknown Completed [facility] Influenza High Dose Quad Unknown Completed [facility] Influenza High Dose Quad Unknown Completed [facility] Hep B, Adol or Pedi Dosage Unknown Completed [facility] Hep B, Adol or Pedi Dosage Unknown Completed [facility] HEP B, Adult Dosage Unknown Completed [facility] HEPATITIS A Unknown Completed [facility] HEPATITIS A Unknown Completed [facility] Flu Trivalent Unknown Completed [facility] TDAP Unknown Completed [facility] Influenza Virus Vaccine,quad Im,preserve Free 65+ (FLUAD) Unknown Completed [facility] Zoster Vaccine Recombinant Unknown Completed [facility] Zoster Vaccine Recombinant Unknown Completed [facility] Pneumococcal 13 Conjugate, PCV13 (Prevnar 13) Unknown Completed [facility] Influenza High Dose Unknown Completed [facility] SARS-COV-2 COVID-19 VACCINE - (MODERNA) Unknown Completed [facility] SARS-COV-2 COVID-19 VACCINE - (MODERNA) Unknown Completed [facility] SARS-COV-2 COVID-19 MODERNA 0.5ML BOOSTER VACCINE Unknown Completed [facility] Pneumococcal 13 Conjugate, PCV13 (Prevnar 13) Unknown Completed [facility] Influenza High Dose Unknown Completed [facility] SARS-COV-2 COVID-19 VACCINE - (MODERNA) Unknown Completed [facility] TDAP Unknown Completed [facility] Pneumococcal Polysaccharide, PPSV23 (PNEUMOVAX) Unknown Completed [facility] Influenza, Trivalent, Adjuvanted Unknown Completed [facility] Influenza High Dose Quad Unknown Completed [facility] Influenza High Dose Quad Unknown Completed [facility] Hep B, Adol or Pedi Dosage Unknown Completed [facility] Hep B, Adol or Pedi Dosage Unknown Completed [facility] HEP B, Adult Dosage Unknown Completed [facility] HEPATITIS A Unknown Completed [facility] HEPATITIS A Unknown Completed [facility] Flu Trivalent Unknown Completed [facility] TDAP Unknown Completed [facility] Influenza Virus Vaccine,quad Im,preserve Free 65+ (FLUAD) Unknown Completed [facility] Zoster Vaccine Recombinant Unknown Completed [facility] Zoster Vaccine Recombinant Unknown Completed [facility] Pneumococcal 13 Conjugate, PCV13 (Prevnar 13) Unknown Completed [facility] Influenza High Dose Unknown Completed [facility] SARS-COV-2 COVID-19 VACCINE - (MODERNA) Unknown Completed [facility] SARS-COV-2 COVID-19 VACCINE - (MODERNA) Unknown Completed [facility] SARS-COV-2 COVID-19 MODERNA 0.5ML BOOSTER VACCINE Unknown Completed [facility] Pneumococcal 13 Conjugate, PCV13 (Prevnar 13) Unknown Completed [facility] Influenza High Dose Unknown Completed [facility] SARS-COV-2 COVID-19 VACCINE - (MODERNA) Unknown Completed [facility] TDAP Unknown Completed [facility] Pneumococcal Polysaccharide, PPSV23 (PNEUMOVAX) Unknown Completed [facility] Influenza, Trivalent, Adjuvanted Unknown Completed [facility] Influenza High Dose Quad Unknown Completed [facility] Influenza High Dose Quad Unknown Completed [facility] Hep B, Adol or Pedi Dosage Unknown Completed [facility] Hep B, Adol or Pedi Dosage Unknown Completed [facility] HEP B, Adult Dosage Unknown Completed [facility] HEPATITIS A Unknown Completed [facility] HEPATITIS A Unknown Completed [facility] Flu Trivalent Unknown Completed [facility] TDAP Unknown Completed [facility] Influenza Virus Vaccine,quad Im,preserve Free 65+ (FLUAD) Unknown Completed [facility] Zoster Vaccine Recombinant Unknown Completed [facility] Zoster Vaccine Recombinant Unknown Completed [facility] Pneumococcal 13 Conjugate, PCV13 (Prevnar 13) Unknown Completed [facility] Influenza High Dose Unknown Completed [facility] SARS-COV-2 COVID-19 VACCINE - (MODERNA) Unknown Completed [facility] SARS-COV-2 COVID-19 VACCINE - (MODERNA) Unknown Completed [facility] SARS-COV-2 COVID-19 MODERNA 0.5ML BOOSTER VACCINE Unknown Completed [facility] Pneumococcal 13 Conjugate, PCV13 (Prevnar 13) Unknown Completed [facility] Influenza High Dose Unknown Completed [facility] SARS-COV-2 COVID-19 VACCINE - (MODERNA) Unknown Completed [facility] TDAP Unknown Completed [facility] Pneumococcal Polysaccharide, PPSV23 (PNEUMOVAX) Unknown Completed [facility] Influenza, Trivalent, Adjuvanted Unknown Completed [facility] Influenza High Dose Quad Unknown Completed [facility] Influenza High Dose Quad Unknown Completed [facility] Hep B, Adol or Pedi Dosage Unknown Completed [facility] Hep B, Adol or Pedi Dosage Unknown Completed [facility] HEP B, Adult Dosage Unknown Completed [facility] HEPATITIS A Unknown Completed [facility] HEPATITIS A Unknown Completed [facility] Flu Trivalent Unknown Completed [facility] TDAP Unknown Completed [facility] Influenza Virus Vaccine,quad Im,preserve Free 65+ (FLUAD) Unknown Completed [facility] Zoster Vaccine Recombinant Unknown Completed [facility] Zoster Vaccine Recombinant Unknown Completed [facility] Pneumococcal 13 Conjugate, PCV13 (Prevnar 13) Unknown Completed [facility] Influenza High Dose Unknown Completed [facility] SARS-COV-2 COVID-19 VACCINE - (MODERNA) Unknown Completed [facility] SARS-COV-2 COVID-19 VACCINE - (MODERNA) Unknown Completed [facility] SARS-COV-2 COVID-19 MODERNA 0.5ML BOOSTER VACCINE Unknown Completed [facility] Pneumococcal 13 Conjugate, PCV13 (Prevnar 13) Unknown Completed [facility] Influenza High Dose Unknown Completed [facility] SARS-COV-2 COVID-19 VACCINE - (MODERNA) Unknown Completed [facility] TDAP Unknown Completed [facility] Pneumococcal Polysaccharide, PPSV23 (PNEUMOVAX) Unknown Completed [facility] Influenza, Trivalent, Adjuvanted Unknown Completed [facility] Influenza High Dose Quad Unknown Completed [facility] Influenza High Dose Quad Unknown Completed [facility] Hep B, Adol or Pedi Dosage Unknown Completed [facility] Hep B, Adol or Pedi Dosage Unknown Completed [facility] HEP B, Adult Dosage Unknown Completed [facility] HEPATITIS A Unknown Completed [facility] HEPATITIS A Unknown Completed [facility] Flu Trivalent Unknown Completed [facility] TDAP Unknown Completed [facility] Influenza Virus Vaccine,quad Im,preserve Free 65+ (FLUAD) Unknown Completed [facility] Zoster Vaccine Recombinant Unknown Completed [facility] Zoster Vaccine Recombinant Unknown Completed [facility] Pneumococcal 13 Conjugate, PCV13 (Prevnar 13) Unknown Completed [facility] Influenza High Dose Unknown Completed [facility] SARS-COV-2 COVID-19 VACCINE - (MODERNA) Unknown Completed [facility] SARS-COV-2 COVID-19 VACCINE - (MODERNA) Unknown Completed [facility] SARS-COV-2 COVID-19 MODERNA 0.5ML BOOSTER VACCINE Unknown Completed [facility] Pneumococcal 13 Conjugate, PCV13 (Prevnar 13) Unknown Completed [facility] Influenza High Dose Unknown Completed [facility] SARS-COV-2 COVID-19 VACCINE - (MODERNA) Unknown Completed [facility] TDAP Unknown Completed [facility] Pneumococcal Polysaccharide, PPSV23 (PNEUMOVAX) Unknown Completed [facility] Influenza, Trivalent, Adjuvanted Unknown Completed [facility] Influenza High Dose Quad Unknown Completed [facility] Influenza High Dose Quad Unknown Completed [facility] Hep B, Adol or Pedi Dosage Unknown Completed [facility] Hep B, Adol or Pedi Dosage Unknown Completed [facility] HEP B, Adult Dosage Unknown Completed [facility] HEPATITIS A Unknown Completed [facility] HEPATITIS A Unknown Completed [facility] Flu Trivalent Unknown Completed [facility] TDAP Unknown Completed [facility] Influenza Virus Vaccine,quad Im,preserve Free 65+ (FLUAD) Unknown Completed [facility] Zoster Vaccine Recombinant Unknown Completed [facility] Zoster Vaccine Recombinant Unknown Completed [facility] Pneumococcal 13 Conjugate, PCV13 (Prevnar 13) Unknown Completed [facility] Influenza High Dose Unknown Completed [facility] SARS-COV-2 COVID-19 VACCINE - (MODERNA) Unknown Completed [facility] SARS-COV-2 COVID-19 VACCINE - (MODERNA) Unknown Completed [facility] SARS-COV-2 COVID-19 MODERNA 0.5ML BOOSTER VACCINE Unknown Completed [facility] Pneumococcal 13 Conjugate, PCV13 (Prevnar 13) Unknown Completed [facility] Influenza High Dose Unknown Completed [facility] SARS-COV-2 COVID-19 VACCINE - (MODERNA) Unknown Completed [facility] TDAP Unknown Completed [facility] Pneumococcal Polysaccharide, PPSV23 (PNEUMOVAX) Unknown Completed [facility] Influenza, Trivalent, Adjuvanted Unknown Completed [facility] Influenza High Dose Quad Unknown Completed [facility] Influenza High Dose Quad Unknown Completed [facility] Hep B, Adol or Pedi Dosage Unknown Completed [facility] Hep B, Adol or Pedi Dosage Unknown Completed [facility] HEP B, Adult Dosage Unknown Completed [facility] HEPATITIS A Unknown Completed [facility] HEPATITIS A Unknown Completed [facility] Flu Trivalent Unknown Completed [facility] TDAP Unknown Completed [facility] Influenza Virus Vaccine,quad Im,preserve Free 65+ (FLUAD) Unknown Completed [facility] Zoster Vaccine Recombinant Unknown Completed [facility] Zoster Vaccine Recombinant Unknown Completed [facility] Pneumococcal 13 Conjugate, PCV13 (Prevnar 13) Unknown Completed [facility] Influenza High Dose Unknown Completed [facility] SARS-COV-2 COVID-19 VACCINE - (MODERNA) Unknown Completed [facility] SARS-COV-2 COVID-19 VACCINE - (MODERNA) Unknown Completed [facility] SARS-COV-2 COVID-19 MODERNA 0.5ML BOOSTER VACCINE Unknown Completed [facility] Pneumococcal 13 Conjugate, PCV13 (Prevnar 13) Unknown Completed [facility] Influenza High Dose Unknown Completed [facility] SARS-COV-2 COVID-19 VACCINE - (MODERNA) Unknown Completed [facility] TDAP Unknown Completed [facility] Pneumococcal Polysaccharide, PPSV23 (PNEUMOVAX) Unknown Completed [facility] Influenza, Trivalent, Adjuvanted Unknown Completed [facility] Influenza High Dose Quad Unknown Completed [facility] Influenza High Dose Quad Unknown Completed [facility] Hep B, Adol or Pedi Dosage Unknown Completed [facility] Hep B, Adol or Pedi Dosage Unknown Completed [facility] HEP B, Adult Dosage Unknown Completed [facility] HEPATITIS A Unknown Completed [facility] HEPATITIS A Unknown Completed [facility] Flu Trivalent Unknown Completed [facility] TDAP Unknown Completed [facility] Influenza Virus Vaccine,quad Im,preserve Free 65+ (FLUAD) Unknown Completed [facility] Zoster Vaccine Recombinant Unknown Completed [facility] Zoster Vaccine Recombinant Unknown Completed [facility] Pneumococcal 13 Conjugate, PCV13 (Prevnar 13) Unknown Completed [facility] Influenza High Dose Unknown Completed [facility] SARS-COV-2 COVID-19 VACCINE - (MODERNA) Unknown Completed [facility] SARS-COV-2 COVID-19 VACCINE - (MODERNA) Unknown Completed [facility] SARS-COV-2 COVID-19 MODERNA 0.5ML BOOSTER VACCINE Unknown Completed [facility] Pneumococcal 13 Conjugate, PCV13 (Prevnar 13) Unknown Completed [facility] Influenza High Dose Unknown Completed [facility] SARS-COV-2 COVID-19 VACCINE - (MODERNA) Unknown Completed [facility] TDAP Unknown Completed [facility] Pneumococcal Polysaccharide, PPSV23 (PNEUMOVAX) Unknown Completed [facility] Influenza, Trivalent, Adjuvanted Unknown Completed [facility] Influenza High Dose Quad Unknown Completed [facility] Influenza High Dose Quad Unknown Completed [facility] Hep B, Adol or Pedi Dosage Unknown Completed [facility] Hep B, Adol or Pedi Dosage Unknown Completed [facility] HEP B, Adult Dosage Unknown Completed [facility] HEPATITIS A Unknown Completed [facility] HEPATITIS A Unknown Completed [facility] Flu Trivalent Unknown Completed [facility] TDAP Unknown Completed [facility] Influenza Virus Vaccine,quad Im,preserve Free 65+ (FLUAD) Unknown Completed [facility] Zoster Vaccine Recombinant Unknown Completed [facility] Zoster Vaccine Recombinant Unknown Completed [facility] Pneumococcal 13 Conjugate, PCV13 (Prevnar 13) Unknown Completed [facility] Influenza High Dose Unknown Completed [facility] SARS-COV-2 COVID-19 VACCINE - (MODERNA) Unknown Completed [facility] SARS-COV-2 COVID-19 VACCINE - (MODERNA) Unknown Completed [facility] SARS-COV-2 COVID-19 MODERNA 0.5ML BOOSTER VACCINE Unknown Completed [facility] Pneumococcal 13 Conjugate, PCV13 (Prevnar 13) Unknown Completed [facility] Influenza High Dose Unknown Completed [facility] SARS-COV-2 COVID-19 VACCINE - (MODERNA) Unknown Completed [facility] TDAP Unknown Completed [facility] Pneumococcal Polysaccharide, PPSV23 (PNEUMOVAX) Unknown Completed [facility] Influenza, Trivalent, Adjuvanted Unknown Completed [facility] Influenza High Dose Quad Unknown Completed [facility] Influenza High Dose Quad Unknown Completed [facility] Hep B, Adol or Pedi Dosage Unknown Completed [facility] Hep B, Adol or Pedi Dosage Unknown Completed [facility] HEP B, Adult Dosage Unknown Completed [facility] HEPATITIS A Unknown Completed [facility] HEPATITIS A Unknown Completed [facility] Flu Trivalent Unknown Completed [facility] TDAP Unknown Completed [facility] Influenza Virus Vaccine,quad Im,preserve Free 65+ (FLUAD) Unknown Completed [facility] Zoster Vaccine Recombinant Unknown Completed [facility] Zoster Vaccine Recombinant Unknown Completed [facility] Pneumococcal 13 Conjugate, PCV13 (Prevnar 13) Unknown Completed [facility] Influenza High Dose Unknown Completed [facility] SARS-COV-2 COVID-19 VACCINE - (MODERNA) Unknown Completed [facility] SARS-COV-2 COVID-19 VACCINE - (MODERNA) Unknown Completed [facility] SARS-COV-2 COVID-19 MODERNA 0.5ML BOOSTER VACCINE Unknown Completed [facility] Pneumococcal 13 Conjugate, PCV13 (Prevnar 13) Unknown Completed [facility] Influenza High Dose Unknown Completed [facility] SARS-COV-2 COVID-19 VACCINE - (MODERNA) Unknown Completed [facility] TDAP Unknown Completed [facility] Pneumococcal Polysaccharide, PPSV23 (PNEUMOVAX) Unknown Completed [facility] Influenza, Trivalent, Adjuvanted Unknown Completed [facility] Influenza High Dose Quad Unknown Completed [facility] Influenza High Dose Quad Unknown Completed [facility] Hep B, Adol or Pedi Dosage Unknown Completed [facility] Hep B, Adol or Pedi Dosage Unknown Completed [facility] HEP B, Adult Dosage Unknown Completed [facility] HEPATITIS A Unknown Completed [facility] HEPATITIS A Unknown Completed [facility] Flu Trivalent Unknown Completed [facility] TDAP Unknown Completed [facility] Influenza Virus Vaccine,quad Im,preserve Free 65+ (FLUAD) Unknown Completed [facility] Zoster Vaccine Recombinant Unknown Completed [facility] Zoster Vaccine Recombinant Unknown Completed [facility] Pneumococcal 13 Conjugate, PCV13 (Prevnar 13) Unknown Completed [facility] Influenza High Dose Unknown Completed [facility] SARS-COV-2 COVID-19 VACCINE - (MODERNA) Unknown Completed [facility] SARS-COV-2 COVID-19 VACCINE - (MODERNA) Unknown Completed [facility] SARS-COV-2 COVID-19 MODERNA 0.5ML BOOSTER VACCINE Unknown Completed [facility] Pneumococcal 13 Conjugate, PCV13 (Prevnar 13) Unknown Completed [facility] Influenza High Dose Unknown Completed [facility] SARS-COV-2 COVID-19 VACCINE - (MODERNA) Unknown Completed [facility] TDAP Unknown Completed [facility] Pneumococcal Polysaccharide, PPSV23 (PNEUMOVAX) Unknown Completed [facility] Influenza, Trivalent, Adjuvanted Unknown Completed [facility] Influenza High Dose Quad Unknown Completed [facility] Influenza High Dose Quad Unknown Completed [facility] Hep B, Adol or Pedi Dosage Unknown Completed [facility] Hep B, Adol or Pedi Dosage Unknown Completed [facility] HEP B, Adult Dosage Unknown Completed [facility] HEPATITIS A Unknown Completed [facility] HEPATITIS A Unknown Completed [facility] Flu Trivalent Unknown Completed [facility] TDAP Unknown Completed [facility] Influenza Virus Vaccine,quad Im,preserve Free 65+ (FLUAD) Unknown Completed [facility] Zoster Vaccine Recombinant Unknown Completed [facility] Zoster Vaccine Recombinant Unknown Completed [facility] Pneumococcal 13 Conjugate, PCV13 (Prevnar 13) Unknown Completed [facility] Influenza High Dose Unknown Completed [facility] SARS-COV-2 COVID-19 VACCINE - (MODERNA) Unknown Completed [facility] SARS-COV-2 COVID-19 VACCINE - (MODERNA) Unknown Completed [facility] SARS-COV-2 COVID-19 MODERNA 0.5ML BOOSTER VACCINE Unknown Completed [facility] Pneumococcal 13 Conjugate, PCV13 (Prevnar 13) Unknown Completed [facility] Influenza High Dose Unknown Completed [facility] SARS-COV-2 COVID-19 VACCINE - (MODERNA) Unknown Completed [facility] TDAP Unknown Completed [facility] Pneumococcal Polysaccharide, PPSV23 (PNEUMOVAX) Unknown Completed [facility] Influenza, Trivalent, Adjuvanted Unknown Completed [facility] Influenza High Dose Quad Unknown Completed [facility] Influenza High Dose Quad Unknown Completed [facility] Hep B, Adol or Pedi Dosage Unknown Completed [facility] Hep B, Adol or Pedi Dosage Unknown Completed [facility] HEP B, Adult Dosage Unknown Completed [facility] HEPATITIS A Unknown Completed [facility] HEPATITIS A Unknown Completed [facility] Flu Trivalent Unknown Completed [facility] TDAP Unknown Completed [facility] Influenza Virus Vaccine,quad Im,preserve Free 65+ (FLUAD) Unknown Completed [facility] Zoster Vaccine Recombinant Unknown Completed [facility] Zoster Vaccine Recombinant Unknown Completed [facility] Pneumococcal 13 Conjugate, PCV13 (Prevnar 13) Unknown Completed [facility] Influenza High Dose Unknown Completed [facility] SARS-COV-2 COVID-19 VACCINE - (MODERNA) Unknown Completed [facility] SARS-COV-2 COVID-19 VACCINE - (MODERNA) Unknown Completed [facility] SARS-COV-2 COVID-19 MODERNA 0.5ML BOOSTER VACCINE Unknown Completed [facility] Pneumococcal 13 Conjugate, PCV13 (Prevnar 13) Unknown Completed [facility] Influenza High Dose Unknown Completed [facility] SARS-COV-2 COVID-19 VACCINE - (MODERNA) Unknown Completed [facility] TDAP Unknown Completed [facility] Pneumococcal Polysaccharide, PPSV23 (PNEUMOVAX) Unknown Completed [facility] Influenza, Trivalent, Adjuvanted Unknown Completed [facility] Influenza High Dose Quad Unknown Completed [facility] Influenza High Dose Quad Unknown Completed [facility] Hep B, Adol or Pedi Dosage Unknown Completed [facility] Hep B, Adol or Pedi Dosage Unknown Completed [facility] HEP B, Adult Dosage Unknown Completed [facility] HEPATITIS A Unknown Completed [facility] HEPATITIS A Unknown Completed [facility] Flu Trivalent Unknown Completed [facility] TDAP Unknown Completed [facility] Influenza Virus Vaccine,quad Im,preserve Free 65+ (FLUAD) Unknown Completed [facility] Zoster Vaccine Recombinant Unknown Completed [facility] Zoster Vaccine Recombinant Unknown Completed [facility] Pneumococcal 13 Conjugate, PCV13 (Prevnar 13) Unknown Completed [facility] Influenza High Dose Unknown Completed [facility] SARS-COV-2 COVID-19 VACCINE - (MODERNA) Unknown Completed [facility] SARS-COV-2 COVID-19 VACCINE - (MODERNA) Unknown Completed [facility] SARS-COV-2 COVID-19 MODERNA 0.5ML BOOSTER VACCINE Unknown Completed [facility] Pneumococcal 13 Conjugate, PCV13 (Prevnar 13) Unknown Completed [facility] Influenza High Dose Unknown Completed [facility] SARS-COV-2 COVID-19 VACCINE - (MODERNA) Unknown Completed [facility] TDAP Unknown Completed [facility] Pneumococcal Polysaccharide, PPSV23 (PNEUMOVAX) Unknown Completed [facility] Influenza, Trivalent, Adjuvanted Unknown Completed [facility] Influenza High Dose Quad Unknown Completed [facility] Influenza High Dose Quad Unknown Completed [facility] Hep B, Adol or Pedi Dosage Unknown Completed [facility] Hep B, Adol or Pedi Dosage Unknown Completed [facility] HEP B, Adult Dosage Unknown Completed [facility] HEPATITIS A Unknown Completed [facility] HEPATITIS A Unknown Completed [facility] Flu Trivalent Unknown Completed [facility] TDAP Unknown Completed [facility] Influenza Virus Vaccine,quad Im,preserve Free 65+ (FLUAD) Unknown Completed [facility] Zoster Vaccine Recombinant Unknown Completed [facility] Zoster Vaccine Recombinant Unknown Completed [facility] Pneumococcal 13 Conjugate, PCV13 (Prevnar 13) Unknown Completed [facility] Influenza High Dose Unknown Completed [facility] SARS-COV-2 COVID-19 VACCINE - (MODERNA) Unknown Completed [facility] SARS-COV-2 COVID-19 VACCINE - (MODERNA) Unknown Completed [facility] SARS-COV-2 COVID-19 MODERNA 0.5ML BOOSTER VACCINE Unknown Completed [facility] Pneumococcal 13 Conjugate, PCV13 (Prevnar 13) Unknown Completed [facility] Influenza High Dose Unknown Completed [facility] SARS-COV-2 COVID-19 VACCINE - (MODERNA) Unknown Completed [facility] TDAP Unknown Completed [facility] Pneumococcal Polysaccharide, PPSV23 (PNEUMOVAX) Unknown Completed [facility] Influenza, Trivalent, Adjuvanted Unknown Completed [facility] Influenza High Dose Quad Unknown Completed [facility] Influenza High Dose Quad Unknown Completed [facility] Hep B, Adol or Pedi Dosage Unknown Completed [facility] Hep B, Adol or Pedi Dosage Unknown Completed [facility] HEP B, Adult Dosage Unknown Completed [facility] HEPATITIS A Unknown Completed [facility] HEPATITIS A Unknown Completed [facility] Flu Trivalent Unknown Completed [facility] TDAP Unknown Completed [facility] Influenza Virus Vaccine,quad Im,preserve Free 65+ (FLUAD) Unknown Completed [facility] Zoster Vaccine Recombinant Unknown Completed [facility] Zoster Vaccine Recombinant Unknown Completed [facility] Pneumococcal 13 Conjugate, PCV13 (Prevnar 13) Unknown Completed [facility] Influenza High Dose Unknown Completed [facility] SARS-COV-2 COVID-19 VACCINE - (MODERNA) Unknown Completed [facility] SARS-COV-2 COVID-19 VACCINE - (MODERNA) Unknown Completed [facility] SARS-COV-2 COVID-19 MODERNA 0.5ML BOOSTER VACCINE Unknown Completed [facility] Pneumococcal 13 Conjugate, PCV13 (Prevnar 13) Unknown Completed [facility] Influenza High Dose Unknown Completed [facility] SARS-COV-2 COVID-19 VACCINE - (MODERNA) Unknown Completed [facility] TDAP Unknown Completed [facility] Pneumococcal Polysaccharide, PPSV23 (PNEUMOVAX) Unknown Completed [facility] Influenza, Trivalent, Adjuvanted Unknown Completed [facility] Influenza High Dose Quad Unknown Completed [facility] Influenza High Dose Quad Unknown Completed [facility] Hep B, Adol or Pedi Dosage Unknown Completed [facility] Hep B, Adol or Pedi Dosage Unknown Completed [facility] HEP B, Adult Dosage Unknown Completed [facility] HEPATITIS A Unknown Completed [facility] HEPATITIS A Unknown Completed [facility] Flu Trivalent Unknown Completed [facility] TDAP Unknown Completed [facility] Influenza Virus Vaccine,quad Im,preserve Free 65+ (FLUAD) Unknown Completed [facility] Zoster Vaccine Recombinant Unknown Completed [facility] Zoster Vaccine Recombinant Unknown Completed [facility] Pneumococcal 13 Conjugate, PCV13 (Prevnar 13) Unknown Completed [facility] Influenza High Dose Unknown Completed [facility] SARS-COV-2 COVID-19 VACCINE - (MODERNA) Unknown Completed [facility] SARS-COV-2 COVID-19 VACCINE - (MODERNA) Unknown Completed [facility] SARS-COV-2 COVID-19 MODERNA 0.5ML BOOSTER VACCINE Unknown Completed [facility] Pneumococcal 13 Conjugate, PCV13 (Prevnar 13) Unknown Completed [facility] Influenza High Dose Unknown Completed [facility] SARS-COV-2 COVID-19 VACCINE - (MODERNA) Unknown Completed [facility] TDAP Unknown Completed [facility] Pneumococcal Polysaccharide, PPSV23 (PNEUMOVAX) Unknown Completed [facility] Influenza, Trivalent, Adjuvanted Unknown Completed [facility] Influenza High Dose Quad Unknown Completed [facility] Influenza High Dose Quad Unknown Completed [facility] Hep B, Adol or Pedi Dosage Unknown Completed [facility] Hep B, Adol or Pedi Dosage Unknown Completed [facility] HEP B, Adult Dosage Unknown Completed [facility] HEPATITIS A Unknown Completed [facility] HEPATITIS A Unknown Completed [facility] Flu Trivalent Unknown Completed [facility] TDAP Unknown Completed [facility] Influenza Virus Vaccine,quad Im,preserve Free 65+ (FLUAD) Unknown Completed [facility] Zoster Vaccine Recombinant Unknown Completed [facility] Zoster Vaccine Recombinant Unknown Completed [facility] Pneumococcal 13 Conjugate, PCV13 (Prevnar 13) Unknown Completed [facility] Influenza High Dose Unknown Completed [facility] SARS-COV-2 COVID-19 VACCINE - (MODERNA) Unknown Completed [facility] SARS-COV-2 COVID-19 VACCINE - (MODERNA) Unknown Completed [facility] SARS-COV-2 COVID-19 MODERNA 0.5ML BOOSTER VACCINE Unknown Completed [facility] Pneumococcal 13 Conjugate, PCV13 (Prevnar 13) Unknown Completed [facility] Influenza High Dose Unknown Completed [facility] SARS-COV-2 COVID-19 VACCINE - (MODERNA) Unknown Completed [facility] TDAP Unknown Completed [facility] Pneumococcal Polysaccharide, PPSV23 (PNEUMOVAX) Unknown Completed [facility] Influenza, Trivalent, Adjuvanted Unknown Completed [facility] Influenza High Dose Quad Unknown Completed [facility] Influenza High Dose Quad Unknown Completed [facility] Hep B, Adol or Pedi Dosage Unknown Completed [facility] Hep B, Adol or Pedi Dosage Unknown Completed [facility] HEP B, Adult Dosage Unknown Completed [facility] HEPATITIS A Unknown Completed [facility] HEPATITIS A Unknown Completed [facility] Flu Trivalent Unknown Completed [facility] TDAP Unknown Completed [facility] Influenza Virus Vaccine,quad Im,preserve Free 65+ (FLUAD) Unknown Completed [facility] Zoster Vaccine Recombinant Unknown Completed [facility] Zoster Vaccine Recombinant Unknown Completed [facility] Pneumococcal 13 Conjugate, PCV13 (Prevnar 13) Unknown Completed [facility] Influenza High Dose Unknown Completed [facility] SARS-COV-2 COVID-19 VACCINE - (MODERNA) Unknown Completed [facility] SARS-COV-2 COVID-19 VACCINE - (MODERNA) Unknown Completed [facility] SARS-COV-2 COVID-19 MODERNA 0.5ML BOOSTER VACCINE Unknown Completed [facility] Pneumococcal 13 Conjugate, PCV13 (Prevnar 13) Unknown [facility] [facility] Influenza High Dose Unknown Completed [facility] SARS-COV-2 COVID-19 VACCINE - (MODERNA) Unknown Completed [facility] TDAP Unknown Completed [facility] Pneumococcal Polysaccharide, PPSV23 (PNEUMOVAX) Unknown Completed [facility] Influenza, Trivalent, Adjuvanted Unknown Completed [facility] Influenza High Dose Quad Unknown Completed [facility] Influenza High Dose Quad Unknown Completed [facility] Hep B, Adol or Pedi Dosage Unknown Completed [facility] Hep B, Adol or Pedi Dosage Unknown Completed [facility] HEP B, Adult Dosage Unknown Completed [facility] HEPATITIS A Unknown Completed [facility] HEPATITIS A Unknown Completed [facility] Flu Trivalent Unknown Completed [facility] TDAP Unknown Completed [facility] Influenza Virus Vaccine,quad Im,preserve Free 65+ (FLUAD) Unknown Completed [facility] Zoster Vaccine Recombinant Unknown Completed [facility] Zoster Vaccine Recombinant Unknown Completed [facility] Pneumococcal 13 Conjugate, PCV13 (Prevnar 13) Unknown Completed [facility] Influenza High Dose Unknown Completed [facility] SARS-COV-2 COVID-19 VACCINE - (MODERNA) Unknown Completed [facility] SARS-COV-2 COVID-19 VACCINE - (MODERNA) Unknown Completed [facility] SARS-COV-2 COVID-19 MODERNA 0.5ML BOOSTER VACCINE Unknown Completed [facility] Pneumococcal 13 Conjugate, PCV13 (Prevnar 13) Unknown Completed [facility] Influenza High Dose Unknown Completed [facility] SARS-COV-2 COVID-19 VACCINE - (MODERNA) Unknown Completed [facility] TDAP Unknown Completed [facility] Pneumococcal Polysaccharide, PPSV23 (PNEUMOVAX) Unknown Completed [facility] Influenza, Trivalent, Adjuvanted Unknown Completed [facility] Influenza High Dose Quad Unknown Completed [facility] Influenza High Dose Quad Unknown Completed [facility] Hep B, Adol or Pedi Dosage Unknown Completed [facility] Hep B, Adol or Pedi Dosage Unknown Completed [facility] HEP B, Adult Dosage Unknown Completed [facility] HEPATITIS A Unknown Completed [facility] HEPATITIS A Unknown Completed [facility] Flu Trivalent Unknown Completed [facility] TDAP Unknown Completed [facility] Influenza Virus Vaccine,quad Im,preserve Free 65+ (FLUAD) Unknown Completed [facility] Zoster Vaccine Recombinant Unknown Completed [facility] Zoster Vaccine Recombinant Unknown Completed [facility] Pneumococcal 13 Conjugate, PCV13 (Prevnar 13) Unknown Completed [facility] Influenza High Dose Unknown Completed [facility] SARS-COV-2 COVID-19 VACCINE - (MODERNA) Unknown Completed [facility] SARS-COV-2 COVID-19 VACCINE - (MODERNA) Unknown Completed [facility] SARS-COV-2 COVID-19 MODERNA 0.5ML BOOSTER VACCINE Unknown Completed [facility] Pneumococcal 13 Conjugate, PCV13 (Prevnar 13) Unknown Completed [facility] Influenza High Dose Unknown Completed [facility] SARS-COV-2 COVID-19 VACCINE - (MODERNA) Unknown Completed [facility] TDAP Unknown Completed [facility] Pneumococcal Polysaccharide, PPSV23 (PNEUMOVAX) Unknown Completed [facility] Influenza, Trivalent, Adjuvanted Unknown Completed [facility] Influenza High Dose Quad Unknown Completed [facility] Influenza High Dose Quad Unknown Completed [facility] Hep B, Adol or Pedi Dosage Unknown Completed [facility] Hep B, Adol or Pedi Dosage Unknown Completed [facility] HEP B, Adult Dosage Unknown Completed [facility] HEPATITIS A Unknown Completed [facility] HEPATITIS A Unknown Completed [facility] Flu Trivalent Unknown Completed [facility] TDAP Unknown Completed [facility] Influenza Virus Vaccine,quad Im,preserve Free 65+ (FLUAD) Unknown Completed [facility] Zoster Vaccine Recombinant Unknown Completed [facility] Zoster Vaccine Recombinant Unknown Completed [facility] Pneumococcal 13 Conjugate, PCV13 (Prevnar 13) Unknown Completed [facility] Influenza High Dose Unknown Completed [facility] SARS-COV-2 COVID-19 VACCINE - (MODERNA) Unknown Completed [facility] SARS-COV-2 COVID-19 VACCINE - (MODERNA) Unknown Completed [facility] SARS-COV-2 COVID-19 MODERNA 0.5ML BOOSTER VACCINE Unknown Completed [facility] Pneumococcal 13 Conjugate, PCV13 (Prevnar 13) Unknown Completed [facility] Influenza High Dose Unknown Completed [facility] SARS-COV-2 COVID-19 VACCINE - (MODERNA) Unknown Completed [facility] TDAP Unknown Completed [facility] Pneumococcal Polysaccharide, PPSV23 (PNEUMOVAX) Unknown Completed [facility] Influenza, Trivalent, Adjuvanted Unknown Completed [facility] Influenza High Dose Quad Unknown Completed [facility] Influenza High Dose Quad Unknown Completed [facility] Hep B, Adol or Pedi Dosage Unknown Completed [facility] Hep B, Adol or Pedi Dosage Unknown Completed [facility] HEP B, Adult Dosage Unknown Completed [facility] HEPATITIS A Unknown Completed [facility] HEPATITIS A Unknown Completed [facility] Flu Trivalent Unknown Completed [facility] TDAP Unknown Completed [facility] Influenza Virus Vaccine,quad Im,preserve Free 65+ (FLUAD) Unknown Completed [facility] Zoster Vaccine Recombinant Unknown Completed [facility] Zoster Vaccine Recombinant Unknown Completed [facility] Pneumococcal 13 Conjugate, PCV13 (Prevnar 13) Unknown Completed [facility] Influenza High Dose Unknown Completed [facility] SARS-COV-2 COVID-19 VACCINE - (MODERNA) Unknown Completed [facility] SARS-COV-2 COVID-19 VACCINE - (MODERNA) Unknown Completed [facility] SARS-COV-2 COVID-19 MODERNA 0.5ML BOOSTER VACCINE Unknown Completed [facility] Pneumococcal 13 Conjugate, PCV13 (Prevnar 13) Unknown Completed [facility] Influenza High Dose Unknown Completed [facility] SARS-COV-2 COVID-19 VACCINE - (MODERNA) Unknown Completed [facility] TDAP Unknown Completed [facility] Pneumococcal Polysaccharide, PPSV23 (PNEUMOVAX) Unknown Completed [facility] Influenza, adjuvanted, trivalent, PF (FLUAD) Unknown Completed [facility] Influenza High Dose Quad Unknown Completed [facility] Influenza High Dose Quad Unknown Completed [facility] Hep B, Adol or Pedi Dosage Unknown Completed [facility] Hep B, Adol or Pedi Dosage Unknown Completed [facility] HEP B, Adult Dosage Unknown Completed [facility] HEPATITIS A Unknown Completed [facility] HEPATITIS A Unknown Completed [facility] Influenza, split virus, trivalent, PF (AFLURIA/FLUARIX/FL ULAVAL/FLUZONE) Unknown Completed [facility] TDAP Unknown Completed [facility] Influenza Virus Vaccine,quad Im,preserve Free 65+ (FLUAD) Unknown Completed [facility] Zoster Vaccine Recombinant Unknown Completed [facility] Zoster Vaccine Recombinant Unknown Completed [facility] Pneumococcal 13 Conjugate, PCV13 (Prevnar 13) Unknown Completed [facility] Influenza High Dose Unknown Completed [facility] SARS-COV-2 COVID-19 VACCINE - (MODERNA) Unknown Completed [facility] SARS-COV-2 COVID-19 VACCINE - (MODERNA) Unknown Completed [facility] SARS-COV-2 COVID-19 MODERNA 0.5ML BOOSTER VACCINE Unknown Completed [facility] Pneumococcal 13 Conjugate, PCV13 (Prevnar 13) Unknown Completed [facility] Influenza High Dose Unknown Completed [facility] SARS-COV-2 COVID-19 VACCINE - (MODERNA) Unknown Completed [facility] TDAP Unknown Completed [facility] Pneumococcal Polysaccharide, PPSV23 (PNEUMOVAX) Unknown Completed [facility] Influenza, adjuvanted, trivalent, PF (FLUAD) Unknown Completed [facility] Influenza High Dose Quad Unknown Completed [facility] Influenza High Dose Quad Unknown Completed [facility] Hep B, Adol or Pedi Dosage Unknown Completed [facility] Hep B, Adol or Pedi Dosage Unknown Completed [facility] HEP B, Adult Dosage Unknown Completed [facility] HEPATITIS A Unknown Completed [facility] HEPATITIS A Unknown Completed [facility] Influenza, split virus, trivalent, PF (AFLURIA/FLUARIX/FL ULAVAL/FLUZONE) Unknown Completed [facility] TDAP Unknown Completed [facility] Influenza Virus Vaccine,quad Im,preserve Free 65+ (FLUAD) Unknown Completed [facility] Zoster Vaccine Recombinant Unknown Completed [facility] Zoster Vaccine Recombinant Unknown Completed [facility] Pneumococcal 13 Conjugate, PCV13 (Prevnar 13) Unknown Completed [facility] Influenza High Dose Unknown Completed [facility] SARS-COV-2 COVID-19 VACCINE - (MODERNA) Unknown Completed [facility] SARS-COV-2 COVID-19 VACCINE - (MODERNA) Unknown Completed [facility] SARS-COV-2 COVID-19 MODERNA 0.5ML BOOSTER VACCINE Unknown Completed [facility] Pneumococcal 13 Conjugate, PCV13 (Prevnar 13) Unknown Completed [facility] Influenza High Dose Unknown Completed [facility] SARS-COV-2 COVID-19 VACCINE - (MODERNA) Unknown Completed [facility] TDAP Unknown Completed [facility] Pneumococcal Polysaccharide, PPSV23 (PNEUMOVAX) Unknown Completed [facility] Influenza, adjuvanted, trivalent, PF (FLUAD) Unknown Completed [facility] Influenza High Dose Quad Unknown Completed [facility] Influenza High Dose Quad Unknown Completed [facility] Hep B, Adol or Pedi Dosage Unknown Completed [facility] Hep B, Adol or Pedi Dosage Unknown Completed [facility] HEP B, Adult Dosage Unknown Completed [facility] HEPATITIS A Unknown Completed [facility] HEPATITIS A Unknown Completed [facility] Influenza, split virus, trivalent, PF (AFLURIA/FLUARIX/FL ULAVAL/FLUZONE) Unknown Completed [facility] TDAP Unknown Completed [facility] Influenza Virus Vaccine,quad Im,preserve Free 65+ (FLUAD) Unknown Completed [facility] Zoster Vaccine Recombinant Unknown Completed [facility] Zoster Vaccine Recombinant Unknown Completed [facility] Pneumococcal 13 Conjugate, PCV13 (Prevnar 13) Unknown Completed [facility] Influenza High Dose Unknown Completed [facility] SARS-COV-2 COVID-19 VACCINE - (MODERNA) Unknown Completed [facility] SARS-COV-2 COVID-19 VACCINE - (MODERNA) Unknown Completed [facility] SARS-COV-2 COVID-19 MODERNA 0.5ML BOOSTER VACCINE Unknown Completed [facility] Pneumococcal 13 Conjugate, PCV13 (Prevnar 13) Unknown Completed [facility] Influenza High Dose Unknown Completed [facility] SARS-COV-2 COVID-19 VACCINE - (MODERNA) Unknown Completed [facility] TDAP Unknown Completed [facility] Pneumococcal Polysaccharide, PPSV23 (PNEUMOVAX) Unknown Completed [facility] Influenza, adjuvanted, trivalent, PF (FLUAD) Unknown Completed [facility] Influenza High Dose Quad Unknown Completed [facility] Influenza High Dose Quad Unknown Completed [facility] Hep B, Adol or Pedi Dosage Unknown Completed [facility] Hep B, Adol or Pedi Dosage Unknown Completed [facility] HEP B, Adult Dosage Unknown Completed [facility] HEPATITIS A Unknown Completed [facility] HEPATITIS A Unknown Completed [facility] Influenza, split virus, trivalent, PF (AFLURIA/FLUARIX/FL ULAVAL/FLUZONE) Unknown Completed [facility] TDAP Unknown Completed [facility] Influenza Virus Vaccine,quad Im,preserve Free 65+ (FLUAD) Unknown Completed [facility] Zoster Vaccine Recombinant Unknown Completed [facility] Zoster Vaccine Recombinant Unknown Completed [facility] Pneumococcal 13 Conjugate, PCV13 (Prevnar 13) Unknown Completed [facility] Influenza High Dose Unknown Completed [facility] SARS-COV-2 COVID-19 VACCINE - (MODERNA) Unknown Completed [facility] SARS-COV-2 COVID-19 VACCINE - (MODERNA) Unknown Completed [facility] SARS-COV-2 COVID-19 MODERNA 0.5ML BOOSTER VACCINE Unknown Completed [facility] Pneumococcal 13 Conjugate, PCV13 (Prevnar 13) Unknown Completed [facility] Influenza High Dose Unknown Completed [facility] SARS-COV-2 COVID-19 VACCINE - (MODERNA) Unknown Completed [facility] TDAP Unknown Completed [facility] Pneumococcal Polysaccharide, PPSV23 (PNEUMOVAX) Unknown Completed [facility] Influenza, adjuvanted, trivalent, PF (FLUAD) Unknown Completed [facility] Influenza High Dose Quad Unknown Completed [facility] Influenza High Dose Quad Unknown Completed [facility] Hep B, Adol or Pedi Dosage Unknown Completed [facility] Hep B, Adol or Pedi Dosage Unknown Completed [facility] HEP B, Adult Dosage Unknown Completed [facility] HEPATITIS A Unknown Completed [facility] HEPATITIS A Unknown Completed [facility] Influenza, split virus, trivalent, PF (AFLURIA/FLUARIX/FL ULAVAL/FLUZONE) Unknown Completed [facility] TDAP Unknown Completed [facility] Influenza Virus Vaccine,quad Im,preserve Free 65+ (FLUAD) Unknown Completed [facility] Zoster Vaccine Recombinant Unknown Completed [facility] Zoster Vaccine Recombinant Unknown Completed [facility] Pneumococcal 13 Conjugate, PCV13 (Prevnar 13) Unknown Completed [facility] Influenza High Dose Unknown Completed [facility] SARS-COV-2 COVID-19 VACCINE - (MODERNA) Unknown Completed [facility] SARS-COV-2 COVID-19 MODERNA 0.5ML BOOSTER VACCINE Unknown Completed [facility] TDAP Unknown Completed [facility] Pneumococcal Polysaccharide, PPSV23 (PNEUMOVAX) Unknown Completed [facility] Influenza, adjuvanted, trivalent, PF (FLUAD) Unknown Completed [facility] Influenza High Dose Quad Unknown Completed [facility] Hep B, Adol or Pedi Dosage Unknown Completed [facility] HEP B, Adult Dosage Unknown Completed [facility] HEPATITIS A Unknown Completed [facility] Influenza, split virus, trivalent, PF (AFLURIA/FLUARIX/FL ULAVAL/FLUZONE) Unknown Completed [facility] Influenza Virus Vaccine,quad Im,preserve Free 65+ (FLUAD) Unknown Completed [facility] Zoster Vaccine Recombinant Unknown Completed [facility] Pneumococcal 13 Conjugate, PCV13 (Prevnar 13) Unknown Completed [facility] Influenza, High-Dose, Trivalent, PF (FLUZONE) Unknown Completed [facility] SARS-COV-2 COVID-19 VACCINE - (MODERNA) Unknown Completed [facility] SARS-COV-2 COVID-19 MODERNA 0.5ML BOOSTER VACCINE Unknown Completed [facility] TDAP Unknown Completed [facility] Pneumococcal Polysaccharide, PPSV23 (PNEUMOVAX) Unknown Completed [facility] Influenza, adjuvanted, trivalent, PF (FLUAD) Unknown Completed [facility] Influenza High Dose Quad Unknown Completed [facility] Hep B, Adol or Pedi Dosage Unknown Completed [facility] HEP B, Adult Dosage Unknown Completed [facility] HEPATITIS A Unknown Completed [facility] Influenza, split virus, trivalent, PF (AFLURIA/FLUARIX/FL ULAVAL/FLUZONE) Unknown Completed [facility] Influenza Virus Vaccine,quad Im,preserve Free 65+ (FLUAD) Unknown Completed [facility] Zoster Vaccine Recombinant Unknown Completed [facility] Pneumococcal 13 Conjugate, PCV13 (Prevnar 13) Unknown Completed [facility] Influenza, High-Dose, Trivalent, PF (FLUZONE) Unknown Completed [facility] SARS-COV-2 COVID-19 VACCINE - (MODERNA) Unknown Completed [facility] SARS-COV-2 COVID-19 MODERNA 0.5ML BOOSTER VACCINE Unknown Completed [facility] TDAP Unknown Completed [facility] Pneumococcal Polysaccharide, PPSV23 (PNEUMOVAX) Unknown Completed [facility] Influenza, adjuvanted, trivalent, PF (FLUAD) Unknown Completed [facility] Influenza High Dose Quad Unknown Completed [facility] Hep B, Adol or Pedi Dosage Unknown Completed [facility] HEP B, Adult Dosage Unknown Completed [facility] HEPATITIS A Unknown Completed [facility] Influenza, split virus, trivalent, PF (AFLURIA/FLUARIX/FL ULAVAL/FLUZONE) Unknown Completed [facility] Influenza Virus Vaccine,quad Im,preserve Free 65+ (FLUAD) Unknown Completed [facility] Zoster Vaccine Recombinant Unknown Completed [facility] Vital Signs Vital Name Observation Time Observation Value Comments S ource Systolic blood pressure 2024-05-16 15:08:00 132 mm[Hg] [facility] Diastolic blood pressure 2024-05-16 15:08:00 80 mm[Hg] [facility] Heart rate 2024-05-16 15:06:00 97 /min [facility] Body temperature 2024-05-16 15:06:00 37 Amy [facility] Body height 2024-05-16 15:06:00 165.1 cm [facility] Body weight 2024-05-16 15:06:00 68.04 kg [facility] BMI 2024-05-16 15:06:00 24.96 kg/m2 [facility] Oxygen saturation in Arterial blood by Pulse oximetry 2024-05-16 15:06:00 98 /min [facility] Systolic blood pressure 2024-04-30 19:25:00 136 mm[Hg] [facility] Diastolic blood pressure 2024-04-30 19:25:00 84 mm[Hg] [facility] [facility] 2024-04-30 19:25:00 101 /min [facility] Body temperature 2024-04-30 19:21:00 36.78 Amy [facility] Body height 2024-04-30 19:21:00 165.1 cm [facility] Body weight 2024-04-30 19:21:00 69.854 kg [facility] BMI 2024-04-30 19:21:00 25.63 kg/m2 [facility] Oxygen saturation in Arterial blood by Pulse oximetry 2024-04-30 19:21:00 97 /min [facility] Systolic blood pressure 2024-04-05 15:30:00 112 mm[Hg] [facility] Diastolic blood pressure 2024-04-05 15:30:00 77 mm[Hg] [facility] Heart rate 2024-04-05 15:30:00 90 /min [facility] Body temperature 2024-04-05 15:30:00 36.72 Amy [facility] Respiratory rate 2024-04-05 15:30:00 18 /min [facility] Body height 2024-04-05 15:30:00 165.1 cm [facility] Body weight 2024-04-05 15:30:00 68.947 kg [facility] BMI 2024-04-05 15:30:00 25.29 kg/m2 [facility] Oxygen saturation in Arterial blood by Pulse oximetry 2024-04-05 15:30:00 97 /min [facility] Systolic blood pressure 2024-03-06 17:47:00 114 mm[Hg] [facility] Diastolic blood pressure 2024-03-06 17:47:00 75 mm[Hg] [facility] Heart rate 2024-03-06 17:47:00 86 /min [facility] Body temperature 2024-03-06 17:47:00 36.72 Amy [facility] Respiratory rate 2024-03-06 17:47:00 18 /min [facility] Body height 2024-03-06 17:47:00 165.1 cm [facility] Body weight 2024-03-06 17:47:00 66.225 kg [facility] BMI 2024-03-06 17:47:00 24.30 kg/m2 [facility] Oxygen saturation in Arterial blood by Pulse oximetry 2024-03-06 17:47:00 98 /min [facility] Systolic blood pressure 2024-01-04 13:14:00 139 mm[Hg] [facility] Diastolic blood pressure 2024-01-04 13:14:00 85 mm[Hg] [facility] Heart rate 2024-01-04 13:14:00 94 /min [facility] Respiratory rate 2024-01-04 13:14:00 18 /min [facility] Body height 2024-01-04 13:14:00 165.1 cm [facility] Body weight 2024-01-04 13:14:00 68.448 kg [facility] BMI 2024-01-04 13:14:00 25.11 kg/m2 [facility] Oxygen saturation in Arterial blood by Pulse oximetry 2024-01-04 13:14:00 98 /min [facility] Systolic blood pressure 2024-01-02 19:00:00 158 mm[Hg] [facility] Diastolic blood pressure 2024-01-02 19:00:00 101 mm[Hg] [facility] Heart rate 2024-01-02 18:46:00 116 /min [facility] Body temperature 2024-01-02 18:46:00 36.28 Amy [facility] Respiratory rate 2024-01-02 18:46:00 18 /min [facility] Body height 2024-01-02 18:46:00 162.1 cm Verified - Josse Licea, SU [facility] Body weight 2024-01-02 18:46:00 66.996 kg Zora - Josse Licea, SU [facility] BMI 2024-01-02 18:46:00 25.50 kg/m2 [facility] Oxygen saturation in Arterial blood by Pulse oximetry 2024-01-02 18:46:00 99 /min [facility] Systolic blood pressure 2023-12-04 14:25:00 140 mm[Hg] [facility] Diastolic blood pressure 2023-12-04 14:25:00 80 mm[Hg] [facility] Heart rate 2023-12-04 14:24:00 89 /min [facility] Body height 2023-12-04 14:24:00 165.1 cm [facility] Body weight 2023-12-04 14:24:00 67.949 kg [facility] BMI 2023-12-04 14:24:00 24.93 kg/m2 [facility] Oxygen saturation in Arterial blood by Pulse oximetry 2023-12-04 14:24:00 96 /min [facility] Systolic blood pressure 2023-10-19 20:02:00 158 mm[Hg] [facility] Diastolic blood pressure 2023-10-19 20:02:00 87 mm[Hg] [facility] Heart rate 2023-10-19 20:01:00 90 /min [facility] Body height 2023-10-19 20:01:00 165.1 cm [facility] Body weight 2023-10-19 20:01:00 68.584 kg [facility] BMI 2023-10-19 20:01:00 25.16 kg/m2 [facility] Oxygen saturation in Arterial blood by Pulse oximetry 2023-10-19 20:01:00 95 /min [facility] Systolic blood pressure 2023-10-17 18:35:00 148 mm[Hg] [facility] Diastolic blood pressure 2023-10-17 18:35:00 86 mm[Hg] [facility] Heart rate 2023-10-17 18:35:00 78 /min [facility] Respiratory rate 2023-10-17 18:35:00 15 /min [facility] Oxygen saturation in Arterial blood by Pulse oximetry 2023-10-17 18:35:00 97 /min [facility] Body temperature 2023-10-17 18:05:00 36.11 Amy [facility] Body height 2023-10-17 16:02:00 165.1 cm [facility] Body weight 2023-10-17 16:02:00 67.2 kg [facility] BMI 2023-10-17 16:02:00 24.65 kg/m2 [facility] Systolic blood pressure 2023-10-17 16:02:00 164 mm[Hg] [facility] Diastolic blood pressure 2023-10-17 16:02:00 95 mm[Hg] [facility] Heart rate 2023-10-17 16:02:00 107 /min [facility] Body temperature 2023-10-17 16:02:00 37 Amy [facility] Respiratory rate 2023-10-17 16:02:00 15 /min [facility] Body height 2023-10-17 16:02:00 165.1 cm [facility] Body weight 2023-10-17 16:02:00 67.2 kg [facility] BMI 2023-10-17 16:02:00 24.65 kg/m2 [facility] Oxygen saturation in Arterial blood by Pulse oximetry 2023-10-17 16:02:00 100 /min [facility] Systolic blood pressure 2023-10-05 19:52:00 137 mm[Hg] [facility] Diastolic blood pressure 2023-10-05 19:52:00 83 mm[Hg] [facility] Heart rate 2023-10-05 19:52:00 88 /min [facility] Respiratory rate 2023-10-05 19:52:00 18 /min [facility] Body height 2023-10-05 19:52:00 165.1 cm [facility] Body weight 2023-10-05 19:52:00 69.128 kg [facility] BMI 2023-10-05 19:52:00 25.36 kg/m2 [facility] Oxygen saturation in Arterial blood by Pulse oximetry 2023-10-05 19:52:00 99 /min [facility] Systolic blood pressure 2023-08-16 21:10:00 143 mm[Hg] pt denies s/s of distress [facility] Diastolic blood pressure 2023-08-16 21:10:00 86 mm[Hg] pt denies s/s of distress [facility] Heart rate 2023-08-16 21:10:00 91 /min [facility] Body temperature 2023-08-16 21:10:00 35.83 Amy [facility] Respiratory rate 2023-08-16 21:10:00 16 /min [facility] Body height 2023-08-16 21:10:00 165.1 cm [facility] Body weight 2023-08-16 21:10:00 68.72 kg [facility] BMI 2023-08-16 21:10:00 25.21 kg/m2 [facility] Oxygen saturation in Arterial blood by Pulse oximetry 2023-08-16 21:10:00 100 /min [facility] Systolic blood pressure 2023-07-31 14:55:00 125 mm[Hg] [facility] Diastolic blood pressure 2023-07-31 14:55:00 52 mm[Hg] [facility] Heart rate 2023-07-31 14:55:00 86 /min [facility] Body temperature 2023-07-31 14:55:00 36.78 Amy [facility] Respiratory rate 2023-07-31 14:55:00 17 /min [facility] Body height 2023-07-31 14:55:00 165.1 cm [facility] Body weight 2023-07-31 14:55:00 68.947 kg [facility] BMI 2023-07-31 14:55:00 25.29 kg/m2 [facility] Oxygen saturation in Arterial blood by Pulse oximetry 2023-07-31 14:55:00 100 /min [facility] Systolic blood pressure 2023-05-29 15:34:00 153 mm[Hg] [facility] Diastolic blood pressure 2023-05-29 15:34:00 91 mm[Hg] [facility] Heart rate 2023-05-29 15:34:00 96 /min [facility] Oxygen saturation in Arterial blood by Pulse oximetry 2023-05-29 15:34:00 100 /min [facility] Body temperature 2023-05-29 15:32:00 36.89 Amy [facility] Respiratory rate 2023-05-29 15:32:00 17 /min [facility] Body height 2023-05-29 15:32:00 165.1 cm [facility] Body weight 2023-05-29 15:32:00 67.903 kg [facility] BMI 2023-05-29 15:32:00 24.91 kg/m2 [facility] Systolic blood pressure 2023-05-18 20:25:00 131 mm[Hg] [facility] Diastolic blood pressure 2023-05-18 20:25:00 85 mm[Hg] [facility] Heart rate 2023-05-18 20:25:00 94 /min [facility] Body temperature 2023-05-18 20:25:00 36.44 Amy [facility] Body height 2023-05-18 20:25:00 165.1 cm [facility] Body weight 2023-05-18 20:25:00 67.586 kg [facility] BMI 2023-05-18 20:25:00 24.79 kg/m2 [facility] Oxygen saturation in Arterial blood by Pulse oximetry 2023-05-18 20:25:00 98 /min [facility] Systolic blood pressure 2023-04-25 14:06:00 147 mm[Hg] [facility] Diastolic blood pressure 2023-04-25 14:06:00 91 mm[Hg] [facility] Heart rate 2023-04-25 13:54:00 88 /min [facility] Body temperature 2023-04-25 13:54:00 36.72 Amy [facility] Body height 2023-04-25 13:54:00 165.1 cm [facility] Body weight 2023-04-25 13:54:00 68.04 kg [facility] BMI 2023-04-25 13:54:00 24.96 kg/m2 [facility] Oxygen saturation in Arterial blood by Pulse oximetry 2023-04-25 13:54:00 98 /min [facility] Systolic blood pressure 2022-12-29 16:34:00 131 mm[Hg] [facility] Diastolic blood pressure 2022-12-29 16:34:00 81 mm[Hg] [facility] Heart rate 2022-12-29 16:34:00 88 /min [facility] Body temperature 2022-12-29 16:34:00 36.39 Amy [facility] Body height 2022-12-29 16:34:00 165.1 cm [facility] Body weight 2022-12-29 16:34:00 67.586 kg [facility] BMI 2022-12-29 16:34:00 24.79 kg/m2 [facility] Oxygen saturation in Arterial blood by Pulse oximetry 2022-12-29 16:34:00 100 /min [facility] Systolic blood pressure 2022-11-21 19:54:00 136 mm[Hg] [facility] Diastolic blood pressure 2022-11-21 19:54:00 86 mm[Hg] [facility] Heart rate 2022-11-21 19:54:00 96 /min [facility] Body temperature 2022-11-21 19:54:00 37 Amy [facility] Respiratory rate 2022-11-21 19:54:00 16 /min [facility] Body height 2022-11-21 19:54:00 165.1 cm [facility] Body weight 2022-11-21 19:54:00 65.59 kg [facility] BMI 2022-11-21 19:54:00 24.06 kg/m2 [facility] Oxygen saturation in Arterial blood by Pulse oximetry 2022-11-21 19:54:00 98 /min [facility] Systolic blood pressure 2022-10-25 14:52:00 130 mm[Hg] [facility] Diastolic blood pressure 2022-10-25 14:52:00 82 mm[Hg] [facility] Heart rate 2022-10-25 14:52:00 90 /min [facility] Body temperature 2022-10-25 14:52:00 36.94 Amy [facility] Body height 2022-10-25 14:52:00 165.1 cm [facility] Body weight 2022-10-25 14:52:00 67.903 kg [facility] BMI 2022-10-25 14:52:00 24.91 kg/m2 [facility] Oxygen saturation in Arterial blood by Pulse oximetry 2022-10-25 14:52:00 98 /min [facility] Systolic blood pressure 2022-09-23 17:12:00 132 mm[Hg] [facility] Diastolic blood pressure 2022-09-23 17:12:00 87 mm[Hg] [facility] Heart rate 2022-09-23 17:12:00 93 /min [facility] Body temperature 2022-09-23 17:12:00 37 Amy [facility] Respiratory rate 2022-09-23 17:12:00 17 /min [facility] Body height 2022-09-23 17:12:00 165.1 cm [facility] Body weight 2022-09-23 17:12:00 68.04 kg [facility] BMI 2022-09-23 17:12:00 24.96 kg/m2 [facility] Oxygen saturation in Arterial blood by Pulse oximetry 2022-09-23 17:12:00 98 /min [facility] Systolic blood pressure 2022-08-15 15:55:00 121 mm[Hg] [facility] Diastolic blood pressure 2022-08-15 15:55:00 75 mm[Hg] [facility] Heart rate 2022-08-15 15:54:00 100 /min [facility] Body temperature 2022-08-15 15:54:00 36.83 Amy [facility] Body height 2022-08-15 15:54:00 165.1 cm [facility] Body weight 2022-08-15 15:54:00 68.04 kg [facility] BMI 2022-08-15 15:54:00 24.96 kg/m2 [facility] Oxygen saturation in Arterial blood by Pulse oximetry 2022-08-15 15:54:00 100 /min [facility] Systolic blood pressure 2022-07-22 14:27:00 145 mm[Hg] [facility] Diastolic blood pressure 2022-07-22 14:27:00 87 mm[Hg] [facility] Heart rate 2022-07-22 14:26:00 105 /min [facility] Body temperature 2022-07-22 14:26:00 36.94 Amy [facility] Body height 2022-07-22 14:26:00 165.1 cm [facility] Body weight 2022-07-22 14:26:00 67.132 kg [facility] BMI 2022-07-22 14:26:00 24.63 kg/m2 [facility] Oxygen saturation in Arterial blood by Pulse oximetry 2022-07-22 14:26:00 97 /min [facility] Procedures Procedure Date / Time Performed Performing Clinician Source BI US GUIDED CORE BREAST BIO PSY RIGHT 2024-04-23 17:51:00 Roberto Cristina [facility] BI US GUIDED CORE BREAST BIO PSY RIGHT 2024-04-09 17:17:00 Roberto Cristina [facility] BI ULTRASOUND BREAST COMPLET E BILATERAL 2024-03-26 19:47:50 Roberto Cristina [facility] BI AMPARO BASINS RIGHT 2024-03-26 19:47:50 Cristina Mejia [facility] BI DIAGNOSTIC TOMOSYNTHESIS RIGHT 03-26 18:56:27 Roberto Cristina [facility] XR CERVICAL SPINE 3 VW 2024-03-06 18:48:10 Mariana Purcell [facility] PET DOTATATE TUMOR IMAGING 2024-02-19 19:10:36 Erick Dominique [facility] LACTATE DEHYDROGENASE 2024-01-04 14:35:00 Jose David [facility] VITAMIN B12, LEVEL 2024-01-04 14:35:00 Roberto [facility] COMP. METABOLIC PANEL (57409) 2024-01-04 14:35:00 Jose David [facility] CBC WITH DIFF 2024-01-04 14:35:00 Jose David [facility] POWER OF HEALTHCARE ECONOMICS CONSULTANT 2023-10-26 06:01:00 Doctor Unassigned, [place] [facility] ESOPHAGOGASTRODUODENOSCOPY 2023-10-17 17:08:00 [facility] COLONOSCOPY 2023-10-17 17:08:00 [facility] COLONOSCOPY (ENDO) 2023-10-17 16:19:14 Roberto [facility] COLONOSCOPY (ENDO) 2023-10-17 16:19:14 Roberto [facility] EGD (ENDO) 2023-10-17 16:18:38 Roberto [facility] EGD (ENDO) 2023-10-17 16:18:38 Roberto [facility] ASSIGNMENT OF BENEFITS 2023-10-17 15:29:24 Doctor Unassigned, [place] [facility] BASIC METABOLIC PANEL (NA, K , CL, CO2, GLUCOSE, BUN, CREATININE, CA) 2023-10-05 21:01:00 Mary Anne Bolanos [facility] CBC WITHOUT DIFF 2023-10-05 21:01:00 Mary Anne Bolanos [facility] ASSIGNMENT OF BENEFITS 2023-07-31 14:46:41 Doctor Unassigned, [place] [facility] TRANSTHORACIC ECHO (TTE) COMPLETE 2022-09 0 18:30:37 William Mendoza [facility] REFERRAL- REQUEST/RESPONSE 2023-06-07 05:01:00 Doctor Unassigned, [place] [facility] HB ECG ROUTINE & RHYTHM STRIP 2023-05-29 15:37:23 Reji William [facility] POWER OF HEALTHCARE ECONOMICS CONSULTANT 2023-05-25 05:01:00 Doctor Unassigned, [place] [facility] EXTERNAL PROVIDER RECORDS 2023-05-04 05:01:00 Doctor Unassigned, [place] [facility] PATIENT FINANCIAL RESPONSIBI LITY - ALL FORMS 2022-12-29 05:01:00 Doctor Unassigned, [place] [facility] COMP. METABOLIC PANEL ([id number]) 2022-09-29 13:36:00 Roberto Cristina [facility] LIPID PANEL ([id number])(TOTAL CHOLESTEROL, TRIGLYCERIDES, HDL) 2022-09-29 13:36:00 Roberto Cristina [facility] GLYCOSYLATED HEMOGLOBIN (A1C) 2022-09-29 13:36:00 Roberto Cristina [facility] URINALYSIS 2022-09-29 13:36:00 Roberto [facility] ASSIGNMENT OF BENEFITS 2022-07-22 14:08:37 Doctor Unassigned, [place] [facility] REFERRAL- REQUEST/RESPONSE 2020-09-29 06:01:00 Doctor Unassigned, [place] [facility] Encounters Start Date/Time End Date/Time Encounter Type Admission Type Attending Clinicians Care Facility Care Department Encounter ID Source 2024-07-16 10:00:00 2024-07-16 10:00:00 Outpatient CRISTINA MCMAHON [facility] [id number] [facility] 2024-06-06 00:00:00 2024-06-06 00:00:00 Outpatient YASSINE URBAN RAJ [facility] [id number] [facility] 2024-05-24 00:00:00 2024-05-27 16:42:17 Telephone Mariana Purcell [facility] [id number] 350.1.13.10 4.2.7.2.686 [id number] [facility] 2024-05-22 00:00:00 2024-05-23 09:43:26 Telephone Mariana Purcell [facility] [id number] 350.1.13.10 4.2.7.2.686 [id number] [facility] 2024-05-21 00:00:00 2024-05-21 10:15:02 Telephone Mariana Purcell [facility] [id number] 350.1.13.10 4.2.7.2.686 [id number] [facility] 2024-05-16 11:15:00 2024-05-16 11:30:00 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, Ang - [place] Mariana [facility], Ang - Anthony [facility] [id number] 350.1.13.10 4.2.7.2.686 [id number] [facility] 2024-05-16 10:30:00 2024-05-16 11:02:38 Outpatient R MARIANA PURCELL [facility] [id number] [facility] 2024-05-16 10:30:00 2024-05-16 11:02:38 [facility] [id number] 350.1.13.10 4.2.7.2.686 [id number] [facility] 2024-05-02 00:00:00 2024-05-02 14:27:17 Telephone Cristina Mejia [facility] [id number] 350.1.13.10 4.2.7.2.686 [id number] [facility] 2024-04-30 14:45:00 2024-04-30 15:30:00 Office Visit Yassine Neri [facility] 1..840.114 350.1.13.10 4.2.7.2.686 [id number] [facility] 2024-04-30 14:45:00 2024-04-30 14:45:00 Outpatient Radha ROGERSLUCINDAYASSINE RAJ [facility] [id number] [facility] 2024-04-26 00:00:00 2024-04-26 14:26:03 Telephone Cristina Mejia [facility] [id number] 350.1.13.10 4.2.7.2.686 [id number] [facility] 2024-04-23 09:58:27 2024-04-23 23:59:00 Outpatient R CRISTINA MEJIA [facility] [id number] [facility] 2024-04-23 09:58:27 2024-04-23 23:59:00 Hospital Encounter Cristina Mejia [facility] 1..840.114 350.1.13.10 4.2.7.2.686 [id number] [facility] 2024-04-09 09:13:58 2024-04-09 23:59:00 Outpatient R CRISTINA MEJIA [facility] [id number] [facility] 2024-04-09 09:13:58 2024-04-09 23:59:00 Hospital Encounter Cristina Mejia [facility] 1..840.114 350.1.13.10 4.2.7.2.686 [id number] [facility] 2024-04-05 10:20:00 2024-04-05 11:15:49 Outpatient R CRISTINA MEJIA [facility] [id number] [facility] 2024-04-05 10:20:00 2024-04-05 11:15:49 Office Visit Roberto [facility]?KALANIDheeraj [facility] 1.2.840.114 350.1.13.10 4.2.7.2.686 [id number] 044 [id number] [facility] 2024-03-28 00:00:00 2024-03-28 16:54:06 [facility] 1.2.840.114 350.1.13.10 4.2.7.2.686 [id number] 044 [id number] [facility] 2024-03-26 12:56:39 2024-03-26 23:59:00 Outpatient R ROBERTOCRISTINA [facility] [id number] [facility] 2024-03-26 12:56:39 2024-03-26 23:59:00 Hospital Encounter Roberto [facility] 1.2.840.114 350.1.13.10 4.2.7.2.686 [id number] [facility] 2024-03-26 12:55:52 2024-03-26 12:55:52 [facility] 1.2.840.114 350.1.13.10 4.2.7.2.686 [id number] [facility] 2024-03-26 00:00:00 2024-03-26 00:00:00 Outpatient R CRISTINA MEJIA [facility] [id number] [facility] 2024-03-20 11:30:00 2024-03-20 11:30:00 Outpatient R DOMINIQUE SCHWAB [facility] [id number] [facility] 2024-03-14 00:00:00 2024-03-14 14:46:32 Telephone Mariana Purcell [facility] 1.2840.114 350.1.13.10 4.2.7.2.686 [id number] 044 [id number] [facility] 2024-03-06 13:19:19 2024-03-06 23:59:00 Hospital Encounter [facility] 1.2840.114 350.1.13.10 4.2.7.2.686 [id number] [facility] 2024-03-06 13:19:18 2024-03-06 23:59:00 Hospital Encounter [facility] Pur[facility] 1.2840.114 350.1.13.10 4.2.7.2.686 [id number] [facility] 2024-03-06 13:00:00 2024-03-06 13:20:50 Outpatient R MARIANA PURCELL [facility] [id number] [facility] 2024-03-06 13:00:00 2024-03-06 13:20:50 Office Visit Mariana Purcell [facility] 1.2840.114 350.1.13.10 4.2.7.2.686 [id number] 044 [id number] [facility] 2024-02-28 00:00:00 2024-02-29 12:36:36 [facility]phone [facility] 1.2840.114 350.1.13.10 4.2.7.2.686 [id number] 044 [id number] [facility] 2024-02-26 00:00:00 2024-02-26 13:44:21 Telephone [facility] BU[facility] 1.2840.114 350.1.13.10 4.2.7.2.686 [id number] 044 [id number] [facility] 2024-02-26 00:00:00 2024-02-26 10:54:42 Telephone Kelsey Salgado BUILDING 1.2.840.114 350.1.13.10 4.2.7.2.686 [id number] 080 [id number] [facility] 2024-02-26 00:00:00 2024-02-26 09:08:24 Telephone [facility] 1.2.840.114 350.1.13.10 4.2.7.2.686 [id number] 044 [id number] [facility] 2024-02-13 00:00:00 2024-02-21 16:24:31 Telephone Kelsey Salgado BUILDING 1.2840.114 350.1.13.10 4.2.7.2.686 [id number] [id number] [facility] 2024-02-19 12:33:51 2024-02-19 23:59:00 Outpatient R DOMINIQUE SCHWAB [facility] [id number] [facility] 2024-02-19 12:33:51 2024-02-19 23:59:00 Hospital Encounter Dominique Schwab 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, Chris Mejia [facility] 1.2.840.114 350.1.13.10 4.2.7.2.686 [id number] [facility] 2024-02-06 10:00:00 2024-02-06 10:00:00 Outpatient FIORELLA MICHELLE [facility] [id number] [facility] 2024-02-06 08:30:00 2024-02-06 08:30:00 Outpatient R TRAY MEJIA [facility] [id number] [facility] 2024-01-04 09:30:00 2024-01-04 10:04:30 Outpatient R ROBERTOCRISTINACarola [facility] [id number] [facility] 2024-01-04 09:30:00 2024-01-04 10:04:30 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, Chris Mejia [facility] BU[facility] 1.2.840.114 350.1.13.10 4.2.7.2.686 [id number] [facility] 2024-01-04 08:40:00 2024-01-04 09:28:22 Office Visit Roberto [facility] BUILD[facility] 1.2.840.114 350.1.13.10 4.2.7.2.686 [id number] 044 [id number] [facility] 2024-01-02 13:00:00 2024-01-02 15:41:16 Outpatient TIANNA PINEDA [facility] [id number] [facility] 2024-01-02 13:00:00 2024-01-02 15:41:16 Office Visit Jama [facility] [place] [facility] 1.2.840.114 350.1.13.10 4.2.7.2.686 [id number] [facility] 2024-01-01 00:00:00 2024-01-01 00:00:00 Case Management Erick [facility] 1.2.840.114 350.1.13.10 4.2.7.2.686 [id number] [facility] 2023-12-27 00:00:00 2023-12-27 00:00:00 Letter (Out) [facility] 1.2.840.114 350.1.13.10 4.2.7.2.686 [id number] [facility] 2023-12-04 10:00:00 2023-12-04 13:03:54 Outpatient R ILIA BARNES [facility] [id number] [facility] 2023-12-04 10:00:00 2023-12-04 13:03:54 Office Visit [facility] 1.2.840.114 350.1.13.10 4.2.7.2.686 [id number] 044 [id number] [facility] 2023-12-04 00:00:00 2023-12-04 00:00:00 Telephone Dominique Schwab [facility] 1.2.840.114 350.1.13.10 4.2.7.2.686 [id number] 071 [id number] [facility] 2023-11-17 09:30:00 2023-11-17 09:30:00 Outpatient R MARIANA PURCELL [facility] [id number] [facility] 2023-10-27 00:00:00 2023-10-27 00:00:00 Telephone Cristina Mejia [facility] 1.84.114 350.1.13.10 4.2.7.2.686 [id number] 044 [id number] [facility] 2023-10-26 00:00:00 2023-10-26 00:00:00 Orders Only Doctor Unassigned, [place] [facility] 1..114 350.1.13.10 4.2.7.2.686 [id number] [facility] 2023-10-24 00:00:00 2023-10-24 00:00:00 Telephone Dominique Schwab [facility] 1..114 350.1.13.10 4.2.7.2.686 [id number] [id number] [facility] 2023-10-19 13:30:00 2023-10-19 13:45:00 Office Visit Cameron Ilia [facility] 1.84.114 350.1.13.10 4.2.7.2.686 [id number] 044 [id number] [facility] 2023-10-19 13:30:00 2023-10-19 13:30:00 Outpatient R ILIA BARNES [facility] [id number] [facility] 2023-10-17 09:31:00 2023-10-17 13:03:00 Outpatient R DOMINIQUE SCHWAB [facility] GIE [id number] [facility] 2023-10-17 09:31:00 2023-10-17 13:03:00 Hospital Encounter Dominique Schwab [facility] 1..114 350.1.13.10 4.2.7.2.686 [id number] [facility] 2023-10-17 10:30:00 2023-10-17 11:30:00 Surgery Schwab, Dominique [facility] 1..114 350.1.13.10 4.2.7.2.686 [id number] 020 [id number] [facility] 2023-10-17 00:00:00 2023-10-17 00:00:00 Orders Only Doctor Unassigned, [place] [facility] 1.0.114 350.1.13.10 4.2.7.2.686 [id number] [facility] 2023-10-11 00:00:00 2023-10-11 00:00:00 Refill Roberto [facility]ILD[facility] 1..114 350.1.13.10 4.2.7.2.686 [id number] 044 [id number] [facility] 2023-10-10 00:00:00 2023-10-10 00:00:00 Telephone Dominique Schwab [facility] 1..114 350.1.13.10 4.2.7.2.686 [id number] 071 [id number] [facility] 2023-10-06 00:00:00 2023-10-06 00:00:00 Telephone Roberto [facility] 1.114 350.1.13.10 4.2.7.2.686 [id number] 044 [id number] [facility] 2023-10-05 15:00:00 2023-10-05 15:03:38 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, Mary Anne Rivera [facility]ILD[facility] 1.114 350.1.13.10 4.2.7.2.686 [id number] [facility] 2023-10-05 14:00:00 2023-10-05 14:53:33 Outpatient R MARY ANNE BOLANOS [facility] [id number] [facility] 2023-10-05 14:00:00 2023-10-05 14:53:33 Office Visit Mary Anne Bolanos [facility] 1.2.840.114 350.1.13.10 4.2.7.2.686 [id number] 044 [id number] [facility] 2023-10-05 09:20:00 2023-10-05 09:20:00 Outpatient R CRISTINA MEJIA CRISTINA [facility] [id number] [facility] 2023-08-24 10:57:17 2023-08-24 23:59:00 Outpatient R CRISTINA MEJIA [facility] [id number] [facility] 2023-08-24 10:57:17 2023-08-24 23:59:00 Hospital Encounter Cristina Mejia [facility] 1.2.840.114 350.1.13.10 4.2.7.2.686 [id number] [facility] 2023-08-16 16:00:00 2023-08-16 16:30:00 Office Visit Dominique Schwab [facility] 1.2.840.114 350.1.13.10 4.2.7.2.686 [id number] [facility] 2023-08-16 16:00:00 2023-08-16 16:00:00 Outpatient R DOMINIQUE SCHWAB [facility] [id number] [facility] 2023-08-01 08:30:00 2023-08-01 08:57:21 Outpatient R CRISTINA MEJIA [facility] [id number] [facility] 2023-08-01 08:30:00 2023-08-01 08:57:21 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, Chris Mejia [facility] 1.840.114 350.1.13.10 4.2.7.2.686 [id number] [facility] 2023-07-31 09:40:00 2023-07-31 11:12:10 Office Visit [facility] 1.840.114 350.1.13.10 4.2.7.2.686 [id number] 044 [id number] [facility] 2023-07-31 09:40:00 2023-07-31 11:12:10 Outpatient R SHEN [facility] [id number] [facility] 2023-07-31 00:00:00 2023-07-31 00:00:00 Orders Only Doctor Unassigned, [place] [facility] 1.0114 350.1.13.10 4.2.7.2.686 [id number] [facility] 2023-07-24 00:00:00 2023-07-24 00:00:00 Telephone Roberto [facility] BUILD[facility] 1.114 350.1.13.10 4.2.7.2.686 [id number] 044 [id number] [facility] 2023-07-23 00:00:00 2023-07-23 00:00:00 Refill Mary Anne Bolanos [facility] 1.114 350.1.13.10 4.2.7.2.686 [id number] 044 [id number] [facility] 2023-07-03 00:00:00 2023-07-03 00:00:00 Refill Roberto [facility] BUILD[facility] 1..114 350.1.13.10 4.2.7.2.686 [id number] 044 [id number] [facility] 2023-07-02 00:00:00 2023-07-02 00:00:00 Outpatient GC_GCBZW_Ka diyala_S PRIV PRIV [id number] [facility] 2023-06-22 00:00:00 2023-06-22 00:00:00 Tele[facility] 1.2.840.114 350.1.13.10 4.2.7.2.686 [id number] 044 [id number] [facility] 2023-06-20 00:00:00 2023-06-20 00:00:[address] [facility] BUILDING 1.2.840.114 350.1.13.10 4.2.7.2.686 [id number] 059 [id number] [facility] 2023-06-12 00:00:00 2023-06-12 00:00:[address] [facility] BUILDING 1.2.840.114 350.1.13.10 4.2.7.2.686 [id number] 059 [id number] [facility] 2023-06-08 00:00:00 2023-06-08 00:00:[address] [facility] BUILDING 1.2.840.114 350.1.13.10 4.2.7.2.686 [id number] 059 [id number] [facility] 2023-06-07 12:57:19 2023-06-07 23:59:00 [facility] [id number] [facility] 2023-06-07 12:57:19 2023-06-07 23:59:00 Hospital Encounter Reji [facility] BUILDING 1.2.840.114 350.1.13.10 4.2.7.2.686 [id number] [id number] [facility] 2023-06-06 00:00:00 2023-06-06 00:00:00 Telephone Roberto [facility] MED[facility] OFFICE BUILDING 1.2840.114 350.1.13.10 4.2.7.2.686 [id number] 044 [id number] [facility] 2023-05-30 00:00:00 2023-05-30 00:00:00 Telephone Roberto [facility] MED[facility] OFF[facility] BUILDING 1.114 350.1.13.10 4.2.7.2.686 [id number] 044 [id number] [facility] 2023-05-29 10:20:00 2023-05-29 10:59:16 Outpatient R [facility] [id number] [facility] 2023-05-29 10:20:00 2023-05-29 10:59:16 Office Visit Reji [facility] NAL BUILDING 1.114 350.1.13.10 4.2.7.2.686 [id number] 059 [id number] [facility] 2023-05-25 00:00:00 2023-05-25 00:00:00 Orders Only Doctor Unassigned, [place] [facility] 1.114 350.1.13.10 4.2.7.2.686 [id number] [id number] [facility] 2023-05-19 00:00:00 2023-05-19 00:00:00 [facility] BUILDING 1.84.114 350.1.13.10 4.2.7.2.686 [id number] 044 [id number] [facility] 2023-05-19 00:00:00 2023-05-19 00:00:00 Telephone [facility] BUILDING 1..840.114 350.1.13.10 4.2.7.2.686 [id number] 044 [id number] [facility] 2023-05-18 15:40:00 2023-05-18 16:11:52 Outpatient R CRISTINA MEJIA [facility] [id number] [facility] 2023-05-18 15:40:00 2023-05-18 16:11:52 Office Visit Roberto [facility] BUILDING 1.840.114 350.1.13.10 4.2.7.2.686 [id number] 044 [id number] [facility] 2023-05-04 00:00:00 2023-05-04 00:00:00 Orders Only Doctor Unassigned, [place] [facility] 1.84.114 350.1.13.10 4.2.7.2.686 [id number] [facility] 2023-04-26 00:00:00 2023-04-26 00:00:00 Refill Roberto [facility] BUILDING 1..840.114 350.1.13.10 4.2.7.2.686 [id number] 044 [id number] [facility] 2023-04-25 09:20:00 2023-04-25 10:18:47 Outpatient R CRISTINA MEJIA [facility] [id number] [facility] 2023-04-25 09:20:00 2023-04-25 10:18:47 Office Visit [facility] BUILDING 1..840.114 350.1.13.10 4.2.7.2.686 [id number] 044 [id number] [facility] 2023-04-21 00:00:00 2023-04-21 00:00:00 Refill [facility] BUILDING 1.2.840.114 350.1.13.10 4.2.7.2.686 [id number] 044 [id number] [facility] 2023-01-25 00:00:00 2023-01-25 00:00:00 Telephone [facility] BUILDING 1.2.840.114 350.1.13.10 4.2.7.2.686 [id number] 044 [id number] [facility] 2023-01-19 00:00:00 2023-01-19 00:00:00 Telephone [facility] BUILDING 1.2840.114 350.1.13.10 4.2.7.2.686 [id number] 044 [id number] [facility] 2023-01-18 00:00:00 2023-01-18 00:00:00 Telephone [facility] BUILDING 1.2.840.114 350.1.13.10 4.2.7.2.686 [id number] 044 [id number] [facility] 2023-01-10 00:00:00 2023-01-10 00:00:00 Telephone [facility] BUILDING 1.2840.114 350.1.13.10 4.2.7.2.686 [id number] 044 [id number] [facility] 2023-01-09 09:30:00 2023-01-09 09:45:00 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, Chris - Anthony Roberto [facility] BUILDING 1.2.840.114 350.1.13.10 4.2.7.2.686 [id number] [facility] 2023-01-09 09:30:00 2023-01-09 09:30:00 Outpatient R SHEN MEJIATING MEJIA [facility] [id number] [facility] 2023-01-09 00:00:00 2023-01-09 00:00:00 Telephone Roberto [facility] BUILDING 1..840.114 350.1.13.10 4.2.7.2.686 [id number] 044 [id number] [facility] 2022-12-29 11:20:00 2022-12-29 12:00:00 Office Visit Roberto [facility] BUILDING 1..840.114 350.1.13.10 4.2.7.2.686 [id number] [id number] [facility] 2022-12-29 11:20:00 2022-12-29 11:20:00 Outpatient R CRISTINA MEJIA [facility] [id number] [facility] 2022-12-29 00:00:00 2022-12-29 00:00:00 Orders Only Doctor Unassigned, [place] [facility] 1..840.114 350.1.13.10 4.2.7.2.686 [id number] [facility] 2022-12-26 08:00:00 2022-12-26 08:00:00 Outpatient R ROBERTO [facility] [id number] [facility] 2022-12-19 00:00:00 2022-12-19 00:00:00 Telephone Minh Sherman [facility] 1..840.114 350.1.13.10 4.2.7.2.686 [id number] [facility] 2022-12-06 00:00:00 2022-12-06 00:00:00 Prep For Surgery Sherman, [facility] BUILDING 1.2.840.114 350.1.13.10 4.2.7.2.686 [id number] [facility] 2022-11-21 14:45:00 2022-11-21 15:15:00 Office Visit Magdalena [facility] BUILDING 1.2.840.114 350.1.13.10 4.2.7.2.686 [id number] [facility] 2022-11-21 14:45:00 2022-11-21 14:45:00 [facility] [id number] [facility] 2022-11-21 13:00:00 2022-11-21 13:00:00 Outpatient R ROIS ALEXANDRE [facility] [id number] [facility] 2022-11-09 13:15:00 2022-11-09 13:15:00 Outpatient R MINH SHERMAN [facility] [id number] [facility] 2022-10-25 09:20:00 2022-10-25 09:51:33 Outpatient R ROBERTO CRISTINA [facility] [id number] [facility] 2022-10-25 09:20:00 2022-10-25 09:51:33 [facility] 1.2.840.114 350.1.13.10 4.2.7.2.686 [id number] [facility] 2022-10-17 09:40:00 2022-10-17 09:40:00 Outpatient R ROBETRO [facility] [id number] [facility] 2022-10-03 13:45:00 2022-10-03 14:00:00 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, 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 [facility] BUILDING 1.2.840.114 350.1.13.10 4.2.7.2.686 [id number] [facility] 2022-10-03 13:45:00 2022-10-03 13:45:00 Outpatient TRAY LUGO [facility] [id number] [facility] 2022-09-29 07:30:00 2022-09-29 07:47:32 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, Chris Mejia [facility] 1..840.114 350.1.13.10 4.2.7.2.686 [id number] 353 [id number] [facility] 2022-09-29 07:30:00 2022-09-29 07:30:00 Outpatient CRISTINA MCMAHON [facility] [id number] [facility] 2022-09-23 11:00:00 2022-09-23 11:37:19 Outpatient R CRISTINA MEJIA [facility] [id number] [facility] 2022-09-23 11:00:00 2022-09-23 11:37:19 [facility] 1..840.114 350.1.13.10 4.2.7.2.686 [id number] [facility] 2022-09-08 07:45:00 2022-09-08 07:45:33 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, Chris Garciacarola [facility] 1..840.114 350.1.13.10 4.2.7.2.686 [id number] [facility] 2022-09-08 07:45:00 2022-09-08 07:45:00 Outpatient R ROBERTO CRISTINA [facility] [id number] [facility] 2022-08-15 10:00:00 2022-08-15 10:13:25 Outpatient R CRISTINA MEJIA [facility] [id number] [facility] 2022-08-15 10:00:00 2022-08-15 10:13:25 Office Visit Roberto [facility] 1.2.840.114 350.1.13.10 4.2.7.2.686 [id number] [facility] 2022-08-12 10:40:00 2022-08-12 10:40:00 Outpatient R [facility]ERTO [facility] [id number] [facility] 2022-07-25 09:00:00 2022-07-25 09:15:00 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, Chris Cruz Roberto [facility] 1.840.114 350.1.13.10 4.2.7.2.686 [id number] 353 [id number] [facility] 2022-07-25 09:00:00 2022-07-25 09:00:00 Outpatient R ROBERTO [facility] [id number] [facility] 2022-07-22 08:20:00 2022-07-22 09:02:30 Outpatient R SHEN [facility]JIAMARY [facility] [id number] [facility] 2022-07-22 08:20:00 2022-07-22 09:02:30 Office Visit Roberto [facility] 1.840.114 350.1.13.10 4.2.7.2.686 [id number] [facility] 2022-07-22 00:00:00 2022-07-22 00:00:00 Orders Only Doctor Unassigned, [place] [facility] 1.840.114 350.1.13.10 4.2.7.2.686 [id number] [facility] 2022-07-20 13:00:00 2022-07-20 13:00:00 Outpatient R AMADO MARIANA [facility] [id number] [facility] 2022-06-24 08:00:00 2022-06-24 08:00:00 Outpatient ROBERT K[facility]ARA [facility] [id number] [facility] 2022-06-23 14:15:00 2022-06-23 14:15:00 Outpatient ROBERT KAMARA SONIA LEE [id number] [facility] 2022-03-03 10:45:00 2022-03-03 10:45:00 Outpatient ROBERT KAMARA SONIA LEE [id number] [facility] 2020-10-06 09:00:00 2020-10-06 09:00:00 Outpatient RENATO ROB [facility] [id number] [facility] 2020-10-06 09:00:00 2020-10-06 09:00:00 Outpatient R ROB GROSS [facility] [id number] [facility] 2020-09-29 00:00:00 2020-09-29 00:00:00 Orders Only Doctor Unassigned, [place] [facility] .0.114 350.1.13.10 4.2.7.2.686 [id number] [facility] 2020-09-29 00:00:00 2020-09-29 00:00:00 Orders Only Doctor Unassigned, [place] [facility] .840.114 350.1.13.10 4.2.7.2.686 [id number] 2016-08-04 00:00:00 2016-08-04 00:00:00 [facility] 1..840.114 350.1.13.10 4.2.7.2.686 [id number] [facility] Results Test Description Test Time Test Comments Results Result Comments Source BI US GUIDED CORE BREAST BIOPSY RIGHT 21:46:19 Table formatting from the original result was not included.Examination:BI US GUIDED CORE BREAST BIOPSY RIGHT The procedure was explained to the patient including benefits and alternatives. ?The risks, including but not limited to infection and bleeding, were reviewed and the patient agreed to undergo the procedure, signing the consent form. ?Timeout was performed. History:Patient is a 74 year old year old female and is seen for: ? Ultrasound-guided biopsy of the right breast 6 mm oval hypoechoic mass at 9:00, 2 cm from the nipple is recommended. Comparisons: 03/26/2024 BI DIAGNOSTIC TOMOSYNTHESIS RIGHT, 08/24/2023 BI SCREENING TOMOSYNTHESIS BILATERAL, 06/22/2017 DIGITAL DIAGNOSTIC MAMMOGRAM, and 12/17/2014 DIGITAL MAMMOGRAM, SCREENING Prior exam with the following findings: Final Diagnosis A. BREAST, RIGHT, MASS, 12 O'CLOCK, 5 CM FROM NIPPLE, CORE NEEDLE BIOPSY: ? ?- INVASIVE DUCTAL CARCINOMA, MODERATELY DIFFERENTIATED, GUEVARA-WRIGHT GRADE 2 ?(TUBULES - 3, PLEOMORPHISM - 2, MITOSES - 1), WITH MICROCALCIFICATIONS ? ?- DUCTAL CARCINOMA IN SITU (DCIS), INTERMEDIATE GRADE, SOLID AND CRIBRIFORM PATTERN, WITH MICROCALCIFICATIONS ? - SEE COMMENT Patricia Timmons, DO ? I have personally reviewed all specimens/slides and agree with all statements made by residents, fellows or pathologist assistants whose name(s) may appear on this report. I have personally reviewed all specimens/slides and agree with all statements made by residents, fellows or pathologist assistants whose name(s) may appear on this report. Pathologist professional component performed at [facility], [address] [place] [id number] at 1112 Concordant findings.Surgical consultation is recommended at this time. The patient has a follow up appointment with breast surgeon Dr. Neri scheduled on 04/16/2024.The patient was notified of these results by Dr Morelos on 04/12/2024. Pending workup:Ultrasound-guide d biopsy of the right breast 6 mm oval hypoechoic mass at 9:00, 2 cm from the nipple is recommended. Given the density of the breasts and this patient s biopsy proven diagnosis, bilateral breast MRI may be helpful for further evaluation. CURRENT EXAM: The patient was positioned supine, and the area of interest was localized using real-time ultrasound guidance. After antiseptic preparation the skin puncture site was draped and infiltrated with lidocaine. ?A skin incision was made. ?A 14 gauge Achieve automated core biopsy needle was advanced to the targeted right breast mass at 9:00, 2 cm from the nipple.. ?Multiple tissue cores were obtained through the target. ?A tissue marker clip was then deployed. ?Continuous real-time ultrasound was used for guidance throughout the procedure. ?Post biopsy mammogram confirmed clip at the biopsy site. Recommendation:Pending pathology results - Right tissue sampling of the hypoechoic mass in the right breast at 9:00, 2 cm from the nipple. ?COIL shaped clip. PENDING WORKUP: Surgical consultation is recommended for the biopsy-proven malignancy in the right breast at 12:00, 5 cm from the nipple (RING shaped clip). ?The patient states that she has a follow-up breast surgery appointment scheduled. Given the density of the breasts and this patient s biopsy proven diagnosis, bilateral breast MRI may be helpful for further evaluation. [facility] BI US GUIDED CORE BREAST BIOPSY RIGHT 17:50:11 Examination:BI US GUIDED CORE BREAST BIOPSY RIGHT The procedure was explained to the patient including benefits and alternatives. ?The risks, including but not limited to infection and bleeding, were reviewed and the patient agreed to undergo the procedure, signing the consent form. ?Timeout was performed. History:Patient is a 74 year old year old female and is seen for: ? Impression:A 13 x 10 x 11 mm irregular hypoechoic mass with spiculated margin at 12:00, 5 cm from the nipple favored to correlate with hypermetabolic right breast density seen on recent PET/CT. ?High suspicion for malignancy. ?An ultrasound-guided core biopsy is recommended for further evaluation. ?BI-RADS 4C. Incidentally noted 6 mm oval hypoechoic mass at 9:00, 2 cm from the nipple. ?Short-term follow-up ultrasound in 6 months is recommended. ?If final pathology of the previously described mass at 12:00, 5 cm from the nipple shows a surgical lesion, biopsy of this mass may be considered if clinically indicated. Comparisons: 03/26/2024 BI DIAGNOSTIC TOMOSYNTHESIS RIGHT, 03/26/2024 BI ULTRASOUND BREAST COMPLETE BILATERAL, 08/24/2023 BI SCREENING TOMOSYNTHESIS BILATERAL, 02/07/2018 BI ULTRASOUND BREAST LIMITED RIGHT, 06/22/2017 BREAST ULTRASOUND LIMITED, 06/22/2017 DIGITAL DIAGNOSTIC MAMMOGRAM, and 12/17/2014 DIGITAL MAMMOGRAM, SCREENING The patient was positioned supine, and the area of interest at 12:00, 5 cm from the nipple of the RIGHT breast was localized using real-time ultrasound guidance. After antiseptic preparation the skin puncture site was draped and infiltrated with lidocaine. ?A skin incision was made. ?A 14 gauge [place] core biopsy needle was advanced to the target. ?Multiple tissue cores were obtained through the target. ?A RING tissue marker clip was then deployed. Continuous real-time ultrasound was used for guidance throughout the procedure. ?Post biopsy mammogram confirmed the RING clip at the biopsy site. Recommendation:Pending pathology results - Right Qatari manager inventory management services were provided. ? [facility] XR CERVICAL SPINE 3 VW 22:01:42 XR CERVICAL SPINE 3 VW HISTORY: Female 74 years chronic neck pain COMPARISON: Cervical radiographs dated 06/24/2016 FINDINGS: The vertebral bodies are normal in height and in normal alignment. Theatlantodental space is normal. The prevertebral soft tissues areunremarkable. Mild degenerative changes, most pronounced at C5-C6, are similar in degreeto the prior study. No acute osseous abnormality. [facility] PET DOTATATE TUMOR IMAGING 05:06:49 PET-CT Ga68 DOTATATE INDICATION: 73-year-old female with a history of rectal NET please evaluatefor other NETColonoscopy to 4RECTUM, BIOPSY:???- WELL-DIFFERENTIATED NEUROENDOCRINE TUMOR (CARCINOID TUMOR) COMPARISON: None TECHNIQUE: 5.3 mCi of Ga-68 dotatate was administered intravenously. One hour later a scan was performed from base of skull to mid thigh on upto date PET-CT system. FINDINGS: HEAD AND NECK: Physiologic activity seen in the pituitary. CHEST:The right breast has the retroareolar mid breast depth 1.8 cm density withSUV 1.7.The left breast and axilla are normal. Lungs, mediastinum and cardiac silhouettes appear normal. ABDOMEN AND PELVIS: Physiologic activity seen at the liver, spleen, kidneysand adrenal glands. The bowel has diffuse low activity. The rectosigmoid has multiplediverticula without an acute inflammatory change. The rectum has relativelow activity without a discrete focus to suspect another neuroendocrinetumor. OTHER:Lumbar multilevel disc disease more significant at L4-5 and L5-S1. [facility] (75775)2024-01-04 21:10:08* Test Item Value Reference Range Interpretation Comme nts NA (test code = 5488098187) 136 mmol/L 135-145 K (test code = 2009691981) 4.0 mmol/L 3.5-5.0 CL (test code = 6682161089) 97 mmol/L 98-108 L CO2 TOTAL (test code = 7345060779) 29 mmol/L 23-31 AGAP (test code = 4812980375) 10 2-16 BUN (test code = 4552550258) 14 mg/dL 7-23 GLUCOSE (test code = 5652510851) 101 mg/dL 70-110 CREATININE (test code = 2160-0) 0.57 mg/dL 0.50-1.04 TOTAL BILI (test code = 4863882513) 0.5 mg/dL 0.1-1.1 CALCIUM (test code = 0850183475) 9.5 mg/dL 8.6-10.6 T PROTEIN (test code = 6736270380) 7.8 g/dL 6.3-8.2 ALBUMIN (test code = 2029897149) 4.6 g/dL 3.5-5.0 ALK PHOS (test code = 6547258889) 62 U/L 34-122 ALTv (test code = 1742-6) 24 U/L 5-35 AST(SGOT) (test code = 3328589248) 26 U/L 13-40 eGFR (test code = 06553-0) 96.7 mL/min/1.73m2 CKD-EPI eGFR (2020). Assuming creatinine has been stable day-to-day for at least three months, the eGFR indicates Category G1 (>= 90 mL/min/1.73 m2) Lab Interpretation (test code = 45416-2) Abnormal [facility] with Szqo1456-09-16 19:13:23* Test Item Value Reference Range Interpretation Comme nts WBC (test code = 6690-2) 6.54 4.30-11.10 RBC (test code = 789-8) 4.46 3.93-5.25 HGB (test code = 718-7) 14.0 g/dL 11.6-15.0 HCT (test code = 4544-3) 42.6 % 35.7-45.2 MCV (test code = 787-2) 95.5 fL 80.6-95.5 MCH (test code = 785-6) 31.4 pg 25.9-32.8 MCHC (test code = 786-4) 32.9 g/dL 31.6-35.1 RDW-SD (test code = 41931-7) 46.0 fL 39.0-49.9 RDW-CV (test code = 788-0) 13.0 % 12.0-15.5 PLT (test code = 777-3) 223 166-358 MPV (test code = 80092-3) 12.0 fL 9.5-12.9 NRBC/100 WBC (test code = 7259627113) 0.0 0.0-10.0 NRBC x10^3 (test code = 4064361147) See_Comment [Automated me ssage] The system which generated this result transmitted reference range: 10*3/?L. The reference range was not used to interpret this result as normal/abnormal. GRAN MAT (NEUT) % (test code = 770-8) 59.8 % IMM GRAN % (test code = 8949735050) 0.20 % LYMPH % (test code = 736-9) 28.7 % MONO % (test code = 5905-5) 9.6 % EOS % (test code = 713-8) 1.4 % BASO % (test code = 706-2) 0.3 % GRAN MAT x10^3(ANC) (test code = 3371758249) 3.91 10*3/uL 1.88-7.09 IMM GRAN x10^3 (test code = 4077677322) 0.00-0.06 LYMPH x10^3 (test code = 731-0) 1.88 10*3/uL 1.32-3.29 MONO x10^3 (test code = 742-7) 0.63 10*3/uL 0.33-0.92 EOS x10^3 (test code = 711-2) 0.09 10*3/uL 0.03-0.39 BASO x10^3 (test code = 704-7) 0.01-0.07 [facility] Bpqqlyxgwylsk0638-76-39 18:37:13* Test Item Value Reference Range Interpretation Comme nts LDH (test code = 9676453278) 170 U/L 120-246 Lab Interpretation (test cod e = 12166-9) Normal [facility] Metabolic Panel (NA, K, CL, CO2, GLUCOSE, BUN, CREATININE, CA)2023-10-06 04:31:23* Test Item Value Reference Range Interpretation Comme nts NA (test code = 6689490333) 134 mmol/L 135-145 L K (test code = 5903517327) 4.2 mmol/L 3.5-5.0 CL (test code = 9287779176) 101 mmol/L 98-108 CO2 TOTAL (test code = 7041129626) 26 mmol/L 23-31 AGAP (test code = 3106874996) 7 2-16 BUN (test code = 4260127820) 14 mg/dL 7-23 GLUCOSE (test code = 7852638574) 94 mg/dL 70-110 CREATININE (test code = 8517557089) 0.53 mg/dL 0.50-1.04 CALCIUM (test code = 4248677720) 9.4 mg/dL 8.6-10.6 eGFR (test code = 00703-9) 98.4 mL/min/1.73m2 CKD-EPI eGFR (2020). Assuming creatinine has been stable day-to-day for at least three months, the eGFR indicates Category G1 (>= 90 mL/min/1.73 m2) Lab Interpretation (test code = 15092-2) Abnormal [facility] without Bymr0242-11-24 22:27:50* Test Item Value Reference Range Interpretation Comme nts WBC (test code = 6690-2) 9.18 4.30-11.10 RBC (test code = 789-8) 4.22 3.93-5.25 HGB (test code = 718-7) 13.7 g/dL 11.6-15.0 HCT (test code = 4544-3) 40.4 % 35.7-45.2 MCH (test code = 785-6) 32.5 pg 25.9-32.8 MCV (test code = 787-2) 95.7 fL 80.6-95.5 H MCHC (test code = 786-4) 33.9 g/dL 31.6-35.1 PLT (test code = 777-3) 284 166-358 MPV (test code = 30483-4) 11.3 fL 9.5-12.9 RDW-CV (test code = 788-0) 12.9 % 12.0-15.5 RDW-SD (test code = 01302-6) 45.4 fL 39.0-49.9 NRBC x10^3 (test code = 7652189018) See_Comment [Automated Panjivaa ge] The system which generated this result transmitted reference range: 10*3/?L. The reference range was not used to interpret this result as normal/abnormal. NRBC/100 WBC (test code = 1064048237) 0.0 0.0-10.0 IPF % (test code = 3273318716) Lab Interpretation (test code = 80797-8) Abnormal [facility] ([facility]E)2023-06-07 23:38:11* Test Item Value Reference Range Interpretation Comme nts Ao root diam (test code = 5887144583) 3.00 cm Aortic root (test code = 0990404368) 3.0 cm Ao root annulus (test code = 8574385294) 3.0 cm BSA (test code = 6182077686) 1.75 m2 LVOT diameter (test code = 2478222148) 1.95 cm LVOT area (test code = 9806910953) 3.00 cm2 LA size (test code = 1741041743) 4.0 cm ACS (test code = 9309212471) 1.78 cm LVIDD (test code = 8630814449) 4.40 cm Left Ventricular End Diastolic Volume by Teichholz Method (test code = 1088813) 86.8 mL IVS (test code = 9394355951) 0.93 cm Interventricular Septum Diastolic Thickness by 2D (test code = 6302355) 0.93 cm LVPWD (test code = 7843342728) 1.08 cm PW (test code = 4610862831) 1.08 cm 0.6-1.1 EF(Teich) (test code = 6335049730) 61.90 % LVIDS (test code = 8464262874) 2.90 cm Left Ventricular End Systolic Volume by Teichholz Method (test code = 6219561) 33.0 mL FS (test code = 6493752281) 33 % EF - 2D (test code = 63433435) 61.90 % TR Peak Yenni (test code = 5356114581) 267.9 cm/s Triscuspid Valve Regurgitation Peak Gradient (test code = 6861247399) 28.7 mmHg PV PEAK VELOCITY (test code = 6767202905) 105.3 cm/s PV peak gradient (test code = 4378254055) 4.4 mmHg MV E-F slope (test code = 4359574939) 41.50 cm/s MV Peak E Yenni (test code = 7723874753) 78.6 cm/s MV Peak A Yenni (test code = 9300914580) 137.8 cm/s E/A ratio (test code = 4169218948) 0.57 ratio MV valve area p 1/2 method (test code = 4755857547) 6.30 cm2 MV dec slope (test code = 6836147083) 647.10 cm/s2 MV P1/2t max yenni (test code = 1407851226) 77.60 cm/s MR max PG (test code = 3731644891) 93.80 mm[Hg] MR max yenni (test code = 6122006326) 484.20 cm/s Mr max yenni (test code = 7511644384) 484.2 m/s LVOT stroke volume (test code = 8130456532) 60.60 cm3 LVOT peak yenni (test code = 0907066940) 115.3 cm/s LVOT mn grad (test code = 2439342775) 2.5 mmHg AV LVOT peak gradient (test code = 1507006912) 5.3 mmHg LVOT peak VTI (test code = 7583504266) 20.3 cm LV V1 mean (test code = 3417032660) 72.40 cm/s Aortic valve mean velocity (test code = 5567938272) 96.6 cm/s Ao peak yenni (test code = 4749511289) 155.6 cm/s Ao VTI (test code = 1191977730) 27.3 cm AV area by cont VTI (test code = 3864236695) 2.2 cm2 AV area peak yenni (test code = 2978613804) 2.2 cm2 Ao max PG (test code = 8092453495) 9.70 mm[Hg] AV peak gradient (test code = 7560098568) 9.7 mmHg AV valve area (test code = 5282686845) 2.22 cm2 AV mean gradient (test code = 2197742761) 4.3 mmHg LAV(MOD-sp4) (test code = 0452485212) 24.50 mL LA Volume Index (BP) (test code = 2596270224) 16.1 mL/m2 LA volume (BP) (test code = 7287569889) 28.1 mL LAV(MOD-sp2) (test code = 1723219422) 30.20 mL Radiology Study observation (narrative) (test code = 65408-6) WILFREDO (test code = WILFREDO) ?Left?Ventricle: Left ventricle size is normal. Normal wall thickness. Normal wall motion. Normal systolic function with a visually estimated EF of 55 - 60%. There is impaired relaxation. Normal left ventricular filling pressure. ?Right?Ventricle: Right ventricle size is normal. Normal systolic function. ?Tricuspid?Valve: Mild transvalvular regurgitation. Right ventricular systolic pressure is 30-35 mmHg. ?RA pressure is 5-10 mmHg. ?Aorta: Mildly enlarged ascending aorta 3.6cm. Left VentricleLeft ventricle size is normal. Normal wall thickness. Normal wall motion. Normal systolic function with a visually estimated EF of 55 - 60%. There is impaired relaxation. Normal left ventricular filling pressure.Right VentricleRight ventricle size is normal. Normal systolic function.Left AtriumLeft atrium size is normal.Right AtriumRight atrium size is normal.IVC/SVCRA pressure is 5-10 mmHg.Mitral ValveMitral valve structure is grossly normal. Mild mitral annular calcification. Trace transvalvular regurgitation.Tricusp id ValveTricuspid valve structure is grossly normal. Mild transvalvular regurgitation. Right ventricular systolic pressure is 30-35 mmHg. RA pressure is 5-10 mmHg.Aortic ValveTricuspid.Pulmon ic ValveNot well visualized. Trace transvalvular regurgitation.Ascendi ng AortaMildly enlarged ascending aorta 3.6cm.PericardiumNo pericardial effusion.Study DetailsStudy quality was adequate. A complete echocardiogram was performed using 2D, color flow Doppler and spectral Doppler. [facility]EM[facility]GLOBIN (A1C)2022-09-29 20:19:39* Test Item Value Reference Range Interpretation Comme nts HGB A1C (test code = 4548-4) 5.9 % 4.0-5.7 H WILFREDO (test code = WILFREDO) Reference RangesNormal: <5.7%Prediabetes: 5.7 - 6.4%Diabetes: > 6.5% Lab Interpretation (test code = 22786-2) Abnormal [facility] Center[facility] METABOLIC PANEL (97520)2022-09-29 19:47:41* Test Item Value Reference Range Interpretation Comme nts NA (test code = 1683905028) 135 mmol/L 135-145 K (test code = 9812423328) 4.6 mmol/L 3.5-5.0 CL (test code = 4628009314) 100 mmol/L 98-108 CO2 TOTAL (test code = 3982402223) 24 mmol/L 23-31 AGAP (test code = 8403239391) 2-16 BUN (test code = 6992427613) 12 mg/dL 7-23 GLUCOSE (test code = 5068661960) 92 mg/dL 70-110 CREATININE (test code = 0720365962) 0.46 mg/dL 0.50-1.04 L TOTAL BILI (test code = 2104725454) 0.8 mg/dL 0.1-1.1 CALCIUM (test code = 0660232089) 9.1 mg/dL 8.6-10.6 T PROTEIN (test code = 2961972287) 8.3 g/dL 6.3-8.2 H ALBUMIN (test code = 6261804169) 4.9 g/dL 3.5-5.0 ALK PHOS (test code = 9839949838) 46 U/L 34-122 ALTv (test code = 1742-6) 27 U/L 5-35 AST(SGOT) (test code = 2907336687) 31 U/L 13-40 eGFR (test code = 2215911456) mL/min/1.73m2 WILFREDO (test code = WILFREDO) Association of [...] or abnormalities in imaging tests). Lab Interpretation (test code = 30042-2) [facility] (39240)(TOTAL CHOLESTEROL, TRIGLYCERIDES, HDL)2022-09-29 19:47:41* Test Item Value Reference Range Interpretation Comme nts CHOL (test code = 9787424932) 245 mg/dL 120-200 H HDL (test code = 9874743137) 49 mg/dL See_Comment L [Automated Panjivaa D square nv] The system which generated this result transmitted reference range: >=50. The reference range was not used to interpret this result as normal/abnormal. HDLC RATIO (test code = 4643921235) See_Comment H [Automated Panjivaa D square nv] The system which generated this result transmitted reference range: <=4.5. The reference range was not used to interpret this result as normal/abnormal. TRIG (test code = 0914000923) 288 mg/dL 30-170 H LDL CHOL (test code = 99204-7) 138 mg/dL See_Comment [Automated Panjivaa D square nv] The system which generated this result transmitted reference range: <=160. The reference range was not used to interpret this result as normal/abnormal. VLDL (test code = 3214129411) 58 mg/dL 5-60 Lab Interpretation (test code = 54050-0) Abnormal [facility] History and Physical Notes Date/Time Note Provider Source 2023-10-16 15:00:23 Endoscopy H & P Age: [age] year old Sex: female ASA Class: II Indication: EGD for evaluation for chronic GERD//Dyspepsia/Bloating and early satiety Colonoscopy for surveillance of colon polyps, rectal NET FHx of gastric or colon cancer: uncle with colon cancer Personal History of polyps:yes, see below Previous abdominal surgeries: hysterectomy Last antiplatelet/anitgocaulant use: None Labs: CBC: No anemia, normal platelets Last Endo: Colonoscopy: 11/20/14 POST-PROCEDURE DIAGNOSIS/ IMPRESSION: 1. Diminutive polyp in the proximal transverse colon; - Excision biopsy was performed to remove the lesion completely. 2. Sessile polyp in the ascending colon; - Polyp was snared, then cauterized with monopolar cautery. Polyp was retrieved and sent to pathology. 3. Diminutive polyp in the rectum; - Biopsy was obtained and sent to pathology. 4. Moderate diverticulosis in the sigmoid colon 5. Normal mucosa rest of the colon 1. PROXIMAL TRANSVERSE COLON, POLYP, BIOPSY: - TUBULAR ADENOMA 2. ASCENDING COLON, POLYPECTOMY: - TUBULAR ADENOMA 3. RECTUM, BIOPSY: - WELL-DIFFERENTIATED NEUROENDOCRINE TUMOR (CARCINOID TUMOR) - MITOTIC RATE: 0 MITOSIS PER 10 HIGH POWER YAN - KI-67 IMMUNOSTAIN SHOWS <1% PROLIFERATIVE INDEX - NO NECROSIS IDENTIFIED - SEE COMMENT Covid status: Present status: asymptomatic Past Medical History: Diagnosis Date Anxiety Bilateral foot pain 02/07/2018 Breast disorder Depression HTN (hypertension), benign Hypercholesteremia Osteoporosis 10/05/2023 Prediabetes 05/11/2017 Family history of Colon Cancer/Polyps: no No current facility-administered medications for this encounter. Current Outpatient Medications Medication Sig Dispense Refill ATORVASTATIN 40 mg tablet TAKE 1 TABLET BY MOUTH AT BEDTIME 90 tablet 3 LISINOPRIL 20 mg tablet TAKE 1 TABLET BY MOUTH DAILY 90 tablet 3 peg-electrolyte soln 236-22.74-6.74 -5.86 gram solution Take as directed before colonoscopy 4000 mL 0 calcium carbonate (CALCIUM 600) 600 mg calcium (1,500 mg) tablet Take 1 tablet by mouth 2 (two) times daily with meals. 60 tablet 2 hydrocortisone 1 % cream Apply to area(s) daily for 14 days. lisinopriL 40 mg tablet Take 1 tablet by mouth daily. omeprazole 40 mg capsule Take 1 capsule by mouth daily. 90 capsule 1 alendronate 70 mg tablet Take 1 tablet by mouth once every month. chlorthalidone 25 mg tablet Take 1 tablet by mouth daily. Diclofenac Sodium (ARTHRITIS PAIN, DICLOFENAC,) 1 % gel Apply 2 g to affected area(s) 4 (four) times daily as needed. gabapentin 300 mg capsule Take 1 capsule by mouth 2 (two) times daily. HYDROcodone-acetaminophen 10-325 mg tablet TAKE 1 TABLET BY MOUTH EVERY 12 HOURS NEEDED FOR MODERATE TO SEVERE PAIN meclizine 25 mg tablet Take 1 tablet by mouth 3 (three) times daily as needed for Dizziness. tiZANidine 4 mg tablet Take 1 tablet by mouth at bedtime. SUCRALFATE 1 gram tablet TAKE 1 TABLET BY MOUTH FOUR TIMES DAILY 360 tablet 1 ergocalciferol, vitamin d2, 1,250 mcg (50,000 unit) capsule Take 1 capsule by mouth once every month. 12 capsule 0 fluticasone propionate 50 mcg/actuation nasal spray Use 2 Sprays in each nostril daily. 16 g 11 polyethylene glycol 3350 17 gram powder Take 1 Packet by mouth once daily as needed for Constipation. 30 Packet 1 Blood Pressure Monitor (BLOOD PRESSURE KIT) Kit Use as directed twice daily to check blood pressure. 1 Kit 0 loratadine 10 mg tablet Take 1 tablet by mouth daily. 90 tablet 1 No Known Allergies Social History Socioeconomic History Marital status: Tobacco Use Smoking status: Never Smokeless tobacco: Never Substance and Sexual Activity Alcohol use: No Alcohol/week: 0.0 standard drinks of alcohol Drug use: No Sexual activity: Yes Partners: Male Social History Narrative No domestic violence or abuse. Mental Status: alert, oriented x3 Chest: Nonlabored breathing, speaks in complete sentences without pauses Cardiovascular: regular rate and rythmn Abdomen: Soft, nontender, nondistended Spleen Tip: non-palpable Hepatomegaly: no Mass: not present Tenderness: no Impression and Plan: Proceed with EGD for evaluation for chronic GERD//Dyspepsia/Bloating and early satiety Colonoscopy for surveillance of colon polyps, rectal NET Education provided to the patient about the procedure. Benefits, risks, alternatives, and likelihood of achieving patient's goals of care discussed. Risks discussed including but not limited to aspiration, infection, bleeding, perforation, missed polyps/lesions, failure to obtain a diagnosis, failure to complete the procedure, cardiovascular complications such as MA, stroke, arrhythmia, and . Informed consent obtained/verified. Dominique Schwab MD [facility] [employer] Worker Gastroenterology [facility] Notes Date/Time Note Provider Source 2024-05-27 16:42:05 .Notified Patient of Test Results and Recommendations Pat Galo MA [facility] 2024-05-27 13:41:37 Sonia Fairchild is a 74 year old female Patient is calling to request a nurse contact her to go over her lab results. Please advise. Aron Ribeiro [facility] 2024-05-24 13:55:12 Sonia Fairchild is a 74 year old female patient requesting to speak with a nurse to go over lab results. Please advise. Valente Gamino [facility] 2024-05-23 09:42:36 Attempted to contact patient. No answer. Left message to call back. Closing encounter. Will address in open result note. Helen Abraham LVN [facility] 2024-05-22 16:44:51 Result note sent T [facility] 2024-05-22 16:26:08 Please review lab results from 05/16 so they can be discussed with patient T [facility] 2024-05-22 15:35:30 Sonia Fairchild is a 74 year old female Is calling back to check to see if blood test results are in and she would like a call back [phone] Charles Cochran [facility] 2024-05-21 10:14:16 First attempt to contact patient, left voicemail to return clinics call. Lab have not been resulted by provider yet. Yamini Jordan MA [facility] 2024-05-21 09:33:33 Patient is calling to speak about her lab results. Patient would like a accounts supervisor. Please advise Callback: [phone] Blake Marquis [facility] 2024-05-16 11:15:00 Images from the original note were not included. Venipuncture collection performed by clean technique on the left anticubitus. Total of 1 attempts were made. Slight pressure and a bandage/dressing were applied to the site(s). The patient experienced no complications. The following specimens were processed according to instructions and sent to [facility] laboratories per lab order on 05/16/2024 : LT BLUE 1 SST 1 RED LAV 2 PPT DK GREEN (LiHep) DK GREEN (SodH) EDGE DK BLUE (K2) DK BLUE (S) ACD Blood Culture NIPT/NTD T [facility] 2024-04-26 14:25:19 Spoke to pt orders note released, told her as soon as released we will call her back. Vera Tripp [facility] 2024-04-26 10:54:07 Patient is requesting a call in regards to breast imaging results. Please advise. Cameron De La Garza [facility] 2024-02-29 12:30:33 New order placed. Thanks. CK! [facility] 2024-02-28 14:21:26 LMTCB Zara Kent LVN 02/28/2024 Please review and advise. T [facility] 2024-02-28 13:21:17 Sonia Fairchild is a 74 year old female, Ila with [facility] Radiology requesting order for diagnostic mammogram, due to results of Pet scan. Ila with radiology requesting that nurse call patient and discuss the reason why she needs diagnostic mammogram instead of a regular mammogram Sania Quiñones [facility] 2024-02-26 10:45:56 Navigation Follow Up Note: Spoke with: Mrs. Sonia Fairchild Action Plan: Informed her that after Oncology team reviewed PET there is no need for further oncology appointments. Oncology team will message PCP to schedule MMG. Recommendation: I recommended she follow up with her PCP to place MMG order and schedule lai. Mrs. Fairchild states she is in the process of speaking with them and trying to schedule MMG. All questions answered. POC: 03/04/24 Med/Onc appointment canceled at this time. Mrs. Fairchild aware and agrees with plan. Kelsey SPRINGER, RN- Nurse Navigator-MDA at [facility] Kelsey Salgado RN [facility] 2024-02-26 09:07:33 Spoke with patient and relayed the information per Dr. Mejia. Patient voiced understanding. Giovana Mayfield RN [facility] 2024-02-26 08:41:06 Please let Ms. Fairchild know I ordered a mammogram. She is due for screening and they saw a spot on the Pet Scan. Dr. Roberto Cox [facility] 2024-02-21 16:17:41 Navigation Follow Up Note: Received email from Med/Onc team requesting PET be scheduled prior to Med/Onc FU appt. Action Plan: Email sent to Radiology scheduling with request as well as Med/Onc schedulers. POC: PET scheduled 02/19/24. Med/Onc FU scheduled 03/04. Kelsey SPRINGER, RN- Nurse Navigator-MDA at [facility] Kelsey Salgado RN [facility] 2024-02-15 15:47:23 Called [facility] Radiology department, spoke with Cassie. She was given patients information, and informed of patients need for an batter depositor, she said she was going to get her scheduled. Mallorie Whatley LVN [facility] 2024-02-15 13:06:26 Discussed patient concerns over the phone. She states she has been having problems with cancellation of appointments which I can't find on chart review. We discussed the importance of her obtaining her PET/Dotatate scan. She mentions someone telling her she needs an infusion but hasn't given her instructions. This could possibly be for the PET scan. Patient understands the importance of obtaining the PET scan and I instructed her to contact radiology for scheduling to which she agreed. GI child support agent (I have spoken with them) will assist patient to ensure scan is scheduled and that patient understands the instruction. Dominique Schwab MD [facility] Hot Blast Worker Gastroenterology [facility] 2024-02-15 11:37:57 Using an batter depositor, contacted the patient. When she learned that it was not the actual doctor returning her call, she became very agitated, and said that the doctor had previously told her that the nurses were never telling him that she had called. She also stated that the nursing staff never delivered her messages to him. Patient stated no one listens to her. She said "just forget it", and "tell the doctor to call me when he has time, I hope you deliver that message" She does not want to speak to anyone but the doctor. And its an urgent issue. [facility] 2024-02-15 09:28:47 Sonia Fairchild is a 73 year old female is calling to speak to the doctor. She did not give any more information other than it's urgent. Misa Gaitan [facility] 2024-02-06 10:15:00 Images from the original note were not included. Patient has been identified by and name and was provided with cup, antiseptic towelette, and clean catch instructions. 1 urine specimen(s) sent. Unpreserved Urine Culture 1 Aptima tube Other urine [facility] 2024-01-04 09:30:00 Images from the original note were not included. Venipuncture collection performed by clean technique on the left anticubitus. Total of 1 attempts were made. Slight pressure and a bandage/dressing were applied to the site(s). The patient experienced no complications. The following specimens were processed according to instructions and sent to [facility] laboratories per lab order on 01/04/2024 : LT BLUE SST 4 RED LAV 1 PPT DK GREEN (LiHep) DK GREEN (SodH) EDGE DK BLUE (K2) DK BLUE (S) ACD Blood Culture NIPT/NTD [facility] 2024-01-04 08:40:00 Addended by: CRISTINA MEJIA on: 01/05/2024 09:11 PM Modules accepted: Level of Service [facility] 2024-01-02 13:00:00 Addended by: TIANNA JIN MD on: 01/02/2024 05:11 PM Modules accepted: Level of Service IM-HEMATOLOGY & ONCOLOGY STAFF [facility] 2023-12-04 11:31:00 Called patient verified name and . Spoke with her and she requested Maternity Floor Supervisor Called for the batter depositor [id number] Lyndsey I was able to speak to her regarding polyp removal and she was concerned about a tumor. I have given the results to the best of my knowledge, and the patient was wanting the doctor to see her sooner, she is currently placed on waiting list and has an appointment. She is fully aware that she may be contacted if the clinic has an opening. The batter depositor felt that the questions were answered. Nancy Taylor RN [facility] 2023-12-04 10:06:41 Patient came into clinic requesting results from procedure preformed on 10/17/2023. Please call patient to give results or if they need to go in for a follow up appointment. Chela Hu [facility] 2023-12-04 10:00:00 Addended by: ILIA BARNES MD on: 12/04/2023 10:01 AM Modules accepted: Orders T [facility] 2023-11-01 09:25:57 Had 7 polyps, path pending. Keep her GI follow up [facility] 2023-10-27 10:16:00 I do not see that the colonoscopy has been resulted on. Please review and result. Thank You. [facility] Giovana Mayfield RN [facility] 2023-10-27 08:53:37 Sonia Fairchild is a 73 year old female Pt is returning clinics ph call in regards to colonoscopy that was done on 10/17/23. [phone] (home) SH Spence [facility] 2023-10-26 10:08:41 Called patient and no answer. SH Taylor RN [facility] 2023-10-25 08:34:58 Pathology results are still in process. SH Grande RN [facility] 2023-10-24 09:10:15 Sonia Fairchild is a 73 year old female Pt is calling for results from her colonoscopy on 10/17/23. Please advise SH Cisneros [facility] 2023-10-12 15:50:33 Images from the original note were not included. Notes: Lisinopril, Medication is listed as historical med, please review and sign if appropriate. Cholesterol Panel Your lipid panel is composed of HDL (what we label as good cholesterol), LDL (what we label as bad cholesterol), cholesterol, and triglycerides. Your numbers were elevated. I recommend focusing on lifestyle changes, including weight loss and following a Mediterranean diet. There is no single Mediterranean diet, but such diets are typically high in fruits, vegetables, whole grains, beans, nuts, and seeds and include olive oil as an important source of fat; there are typically low to moderate amounts of fish, poultry, and dairy products, and there is little red meat. We will repeat this lab in a year. Last Refilled: Name from pharmacy: ATORVASTATIN 40MG TABLETS Will file in chart as: ATORVASTATIN 40 mg tablet Sig: Take 1 tablet by mouth at bedtime. Original sig: TAKE 1 TABLET BY MOUTH AT BEDTIME Disp: 90 tablet Refills: 3 (Pharmacy requested: Not specified) Start: 10/11/2023 Class: eRX For: Hyperlipidemia, unspecified hyperlipidemia type Last ordered: 11 months ago (10/25/2022) by Cristina Mejia MD Last refill: 07/08/2023 Rx #: [id number] Cardiovascular: Antilipid - HMG-CoA Reductase Inhibitors Pltnyu8810/11/2023 03:35 AM Protocol Details Valid encounter within last 12 months Total Cholesterol within 360 days LDL within 360 days HDL within 360 days Triglycerides within 360 days AST in normal range and within 360 days ALT in normal range and within 360 days To be filled at: [id number] [place], [place] - [address] [facility] Disp Refills Start End ADDIS lisinopriL 40 mg tablet -- -- -- -- Sig: Take 1 tablet by mouth daily. Class: Historical Med Route: Oral Order: [id number] Date/Time Signed: 10/05/2023 14:18 Recent Visits Date Type Provider Dept 10/05/23 Office Visit Mary Anne Bolanos MD [facility] 07/31/23 Office Visit Cristina Mejia MD [facility] 05/18/23 Office Visit Cristina Mejia MD [facility] 04/25/23 Office Visit Cristina Mejia MD [facility] 12/29/22 Office Visit Cristina Mejia MD [facility] 10/25/22 Office Visit Cristina Mejia MD [facility] 09/23/22 Office Visit Cristina Mejia MD [facility] 08/15/22 Office Visit Cristina Mejia MD [facility] 07/22/22 Office Visit Cristina Mejia MD [facility] Showing recent visits within past 540 days with a meds authorizing provider and meeting all other requirements Future Appointments Date Type Provider Dept 01/04/24 Appointment Cristina Mejia MD [facility] Showing future appointments within next 150 days with a meds authorizing provider and meeting all other requirements DING KETTLE TENDER Amparo Monge MA [facility] 2023-10-10 16:38:26 Sonia Fairchild is a 73 year old female Pt is calling stating medication was supposed to be sent to pharmacy before colonoscopy procedure on 10/17 , states she went to pharmacy and medication is not there Please advise, thank you. DING KETTLE TENDER Denisse Workman [facility] 2023-10-06 11:54:25 Patient is requesting letter for refusal of blood products to provide to GI prior to EGD/Colonoscopy procedures. [facility] 2023-10-05 15:00:00 Images from the original note were not included. Venipuncture collection performed by clean technique on the left anticubitus. Total of 1 attempts were made. Slight pressure and a bandage/dressing were applied to the site(s). The patient experienced no complications. The following specimens were processed according to instructions and sent to [facility] laboratories per lab order on 10/05/2023: LT BLUE SST 1 RED LAV 1 PPT DK GREEN (LiHep) DK GREEN (SodH) EDGE DK BLUE (K2) DK BLUE (S) ACD Blood Culture NIPT/NTD [facility] 2023-05-22 13:19:52 Formatting of this n ote might be different from the original. Patient notified referral placed. Zara Kent LVN [facility] 2023-05-22 12:51:12 Formatting of this n ote might be different from the original. Signed, thanks! [facility] 2023-05-22 09:08:00 Formatting of this n ote might be different from the original. Please review and sign if appropriate [facility] 2023-05-19 16:58:06 Formatting of this n ote might be different from the original. LIBYAN SPEAKING PT WITH HAND TIRE TRIMMER ASSISTANCE: Pt says her insurance will not cover her going to the non-[facility] and wants to go to [facility] instead, please call with recommendation. Brina Villagran [facility] 2023-04-26 13:34:20 Formatting of this n ote might be different from the original. 90 day conversion [facility] 2023-04-21 14:07:55 Formatting of this n ote is different from the original. Images from the original note were not included. Requested Renewals Name from pharmacy: SUCRALFATE 1GM TABLETS Will file in chart as: SUCRALFATE 1 gram tablet Sig: TAKE 1 TABLET BY MOUTH FOUR TIMES DAILY Disp: 360 tablet Refills: Not specified Start: 04/21/2023 Class: eRX For: Epigastric pain To pharmacy: Patient requests 90 days supply Last ordered: 3 months ago (12/29/2022) by Cristina Mejia MD Last refill: 12/29/2022 Rx #: [id number]|[id number] Metabolics Passed 04/21/2023 02:03 PM Protocol Details Valid encounter within last 12 months To be filled at: [id number] - [place], [place] - [address] [facility] [employer] Recent Visits Date Type Provider Dept 12/29/22 Office Visit Cristina Mejia MD [facility] 10/25/22 Office Visit Cristina Mejia MD [facility] 09/23/22 Office Visit Cristina Mejia MD [facility] 08/15/22 Office Visit Cristina Mejia MD [facility] 07/22/22 Office Visit Cristina Mejia MD [facility] Showing recent visits within past 540 days with a meds authorizing provider and meeting all other requirements Future Appointments Date Type Provider Dept 04/25/23 Appointment Cristina Mejia MD [facility] Showing future appointments within next 150 days with a meds authorizing provider and meeting all other requirements Helen Abraham LVN [facility]
[2024-05-29] MEDS ORDERED: KETOROLAC 30 MG/ML INJ ONE (10:26)
[2024-05-29] MEDS ORDERED: FENTANYL CITR 100 MCG/2 ML ONE (10:27)
[2024-05-29 10:34] LABS: Absolute Eosinophils 0.1 K/uL (0-0.5); Absolute Lymphocytes (CBC) 1.5 K/uL (0.7-4.9); Absolute Monocytes 0.5 K/uL (0.1-1.3); Basophils % 0.2 % (0-1.3); Eosinophils % 1.2 % (0-4.4); Hematocrit 39.7 % (36.0-45.0); Hemoglobin 13.3 g/dL (12.0-15.0); Lymphocytes % 24.7 % (15.3-44.8); MCH 31.8 pg (27.0-35.0); MCHC 33.6 g/dL (32.0-36.0); MCV 94.6 fL (80-100); MPV 9.3 fL (7.6-11.3); Monocytes % 8.5 % (3.3-12.3); Neutrophils % 65.4 % (41.7-73.7); Platelets 239 thou/uL (152-406); RBC Red Blood Cell Count 4.19 M/uL (3.86-4.86); Red Cell Distribution Width 13.4 % (12.1-15.2)
[2024-05-29 10:44] LABS: Anion Gap 9.2 mEq/L (5.0-15.0); Potassium 4.2 mEq/L (3.5-5.1); Troponin High Sensitivity 4.1 pg/mL (<58.9)
--- NOTE | 2024-05-29 13:23 | EDPHYS ---
Physician Documentation [facility] Name: Mary Ortega Age: 74 yrs Sex: Female : 1950 Arrival Date: 05/29/2024 Time: 09:45 Bed 5 Private MD: ED Physician Noe Alvarez HPI: 05/29 10:05 This 74 yrs old Female presents to ER via Ambulatory with complaints of Chest ec2 Pain. 10:05 Patient with history of breast cancer, possible mets arrives today for evaluation of ec2 right-sided breast pain and chest pain. Patient reports that she is scheduled to have a mastectomy next week. Patient reports some pain in the area, no significant difficulty breathing.. Historical: - Allergies: 09:57 No Known Allergies; bp - PMHx: 09:57 Back pain; Chronic back and neck pain; Hyperlipidemia; Hypertension; bp - PSHx: 09:57 hysterectomy; bp - Immunization history:: Adult Immunizations up to date. - Infectious Disease History:: Denies. - Social history:: Smoking status: Patient denies any tobacco usage or history of. ROS: 10:05 Constitutional: as per hpi ec2 Exam: 10:05 Constitutional: GEN: NAD Head: atraumatic Eyes: EOMI Ears: External ears are ec2 normal. CV: tachycardia LUNGS: no respiratory distress ABD: non-distended SKIN: no evidence of rashes, performed under nursing supervision, R breast w/o erythema or discharge MSK: no evidence of trauma Vital Signs: 09:55 BP 159 / 91; Pulse 107; Resp 24; Temp 98; Pulse Ox 95% ; bp 10:30 Pulse 97; ec2 11:26 BP 141 / 80; Pulse 84; Resp 19 S; Pulse Ox 98% on R/A; kc6 13:14 BP 150 / 87; Pulse 91; Resp 19 S; Pulse Ox 98% on R/A; kc6 MDM: 09:57 Patient medically screened. ec2 10:05 Data reviewed: vital signs. ED course: Patient with history of breast cancer arrives ec2 today for right-sided breast and chest pain. Examination remarkable for skin findings as above. Will obtain lab work, give the patient medications for pain and obtain a CT scan of the chest. Differential includes cancer related pain, PE, ACS.. 10:30 ED course: EKG independently reviewed and interpreted by me, shows normal sinus rhythm, ec2 rate is 97, no acute ST segment elevations, nonactionable intervals.. 10:45 ED course: Metabolic profile reassuring, CBC reassuring, troponin within normal ranges. ec2 . 13:22 ED course: There is issues with radiology interpretations being transmitted, verbal ec2 report from Dr. Carney is negative CT scan of the chest. Will discharge home based on this information. Return precautions given. Suspect cancer pain causing the patient's symptoms.. 05/29 10:04 Order name: Basic Metabolic Panel; Complete Time: 10:45 ec2 05/29 10:04 Order name: CBC with Diff; Complete Time: 10:45 ec2 05/29 10:04 Order name: Troponin HS; Complete Time: 10:45 ec2 05/29 10:04 Order name: XRAY Chest (1 view) ec2 05/29 10:04 Order name: CT Chest For PE Angio ec2 05/29 10:04 Order name: EKG; Complete Time: 10:05 ec2 05/29 10:04 Order name: Cardiac monitoring; Complete Time: 10:21 ec2 05/29 10:04 Order name: EKG - Nurse/Tech; Complete Time: 10:21 ec2 05/29 10:04 Order name: IV Saline Lock; Complete Time: 10:21 ec2 05/29 10:04 Order name: Labs collected and sent; Complete Time: 10:21 ec2 05/29 10:04 Order name: O2 Per Protocol; Complete Time: 10:08 ec2 05/29 10:04 Order name: O2 Sat Monitoring; Complete Time: 10:08 ec2 Administered Medications: 10:33 Not Given (Patient Refused): [id number] mg IVP once kc6 10:34 Drug: fentaNYL (PF) IVP 25 mcg IVP once Route: IVP; Site: left antecubital; kc6 11:07 Follow up: Response: No adverse reaction; RASS: Alert and Calm (0) kc6 Disposition Summary: 05/29/24 13:23 Discharge Ordered Notes: Location: Home ec2 Condition: Stable ec2 Diagnosis - Chest pain, unspecified ec2 Followup: ec2 - With: Private Physician - When: - Reason: Re-evaluation by your physician Discharge Instructions: - Discharge Summary Sheet ec2 - Nonspecific Chest Pain, Adult, [id number] ec2 Forms: - Medication Reconciliation Form ec2 - Antibiotic Education ec2 - Prescription Opioid Use ec2 - Patient Portal Instructions ec2 - Leadership Thank You Letter ec2 Prescriptions: - acetaminophen-codeine 300-30 mg Oral tablet - take 1 tablet ORAL route every 4 hours for cancer related pain; 30 tablet; ec2 Refills: 0, Product Selection Permitted Signatures: Dispatcher [employer] Mauricio Mathis RN RN bp Renee Dyer RN RN kc6 Noe Alvarez MD MD ec2 Corrections: (The following items were deleted from the chart) 10:05 10:05 Chest For PE Angio+CT.RAD.BRZ ordered. EDMS EDMS 10:06 10:05 Constitutional: GEN: NAD Head: atraumatic Eyes: EOMI Ears: External ears are ec2 normal. CV: regular rate LUNGS: no respiratory distress ABD: non-distended SKIN: no evidence of rashes, performed under nursing supervision, R breast w/o erythema or discharge MSK: no evidence of trauma ec2
--- NOTE | 2024-05-29 13:23 | ER ---
Nurse's Notes [facility] Name: Mary Ortega Age: 74 yrs Sex: Female : 1950 Arrival Date: 05/29/2024 Time: 09:45 Bed 5 Private MD: Diagnosis: Chest pain, unspecified Presentation: 05/29 09:55 Chief complaint: Patient states: RIGHT AXILLARY PAIN SINCE LAST PM 2/2 CANCER. bp Coronavirus screen: At this time, the client does not indicate any symptoms associated with coronavirus-19. Ebola Screen: No symptoms or risks identified at this time. Initial Sepsis Screen: Does the patient meet any 2 criteria? RR > 20 per min. HR > 90 bpm. Yes Does the patient have a suspected source of infection? No. Patient's initial sepsis screen is negative. Risk Assessment: Do you want to hurt yourself or someone else? Patient reports no desire to harm self or others. Onset of symptoms is unknown. 09:55 Method Of Arrival: Ambulatory bp 09:55 Acuity: MYKE 3 bp Triage Assessment: 09:57 General: Appears distressed, uncomfortable, Behavior is cooperative, appropriate for bp age, crying. Pain: Complains of pain in right lateral anterior chest and right arm. EENT: No deficits noted. Neuro: No deficits noted. Cardiovascular: No deficits noted. Respiratory: Reports shortness of breath Onset: The symptoms/episode began/occurred yesterday, the patient has mild shortness of breath. Historical: - Allergies: 09:57 No Known Allergies; bp - PMHx: 09:57 Back pain; Chronic back and neck pain; Hyperlipidemia; Hypertension; bp - PSHx: 09:57 hysterectomy; bp - Immunization history:: Adult Immunizations up to date. - Infectious Disease History:: Denies. - Social history:: Smoking status: Patient denies any tobacco usage or history of. Screenin:22 [facility] ED Fall Risk Assessment (Adult) History of falling in the last 3 months, kc6 including since admission No falls in past 3 months (0 pts) Confusion or Disorientation No (0 pts) Intoxicated or Sedated No (0 pts) Impaired Gait No (0 pts) Mobility Assist Device Used No (0 pt) Altered Elimination No (0 pt) Score/Fall Risk Level 0 - 2 = Low Risk Oriented to surroundings. Abuse screen: Denies threats or abuse. Denies injuries from another. Nutritional screening: No deficits noted. Tuberculosis screening: No symptoms or risk factors identified. Assessment: 10:02 Reassessment: assisted provider with exam of the right breast. kc6 10:22 General: Appears in no apparent distress. uncomfortable, well groomed, well developed, kc6 Behavior is cooperative, appropriate for age, anxious. Pain: Complains of pain in right lateral anterior chest and right breast. Neuro: Level of Consciousness is awake, alert, obeys commands, Oriented to person, place, time, situation, Appropriate for age. Cardiovascular: Heart tones S1 S2 present Capillary refill < 3 seconds Rhythm is regular. Respiratory: Airway is patent Trachea midline Respiratory effort is even, unlabored, Respiratory pattern is regular, symmetrical, Breath sounds are clear bilaterally. GI: No signs and/or symptoms were reported involving the gastrointestinal system. : No signs and/or symptoms were reported regarding the genitourinary system. EENT: No signs and/or symptoms were reported regarding the EENT system. Derm: No signs and/or symptoms reported regarding the dermatologic system. Skin is intact, is healthy with good turgor, Skin is pink, warm \T\ dry. Musculoskeletal: No signs and/or symptoms reported regarding the musculoskeletal system. Circulation, motion, and sensation intact. Capillary refill < 3 seconds, Range of motion: intact in all extremities. 11:22 Reassessment: Patient appears in no apparent distress at this time. No changes from kc6 previously documented assessment. Patient and/or family updated on plan of care and expected duration. Pain level reassessed. Patient is alert, oriented x 3, equal unlabored respirations, skin warm/dry/pink. 12:22 Reassessment: Patient appears in no apparent distress at this time. No changes from kc6 previously documented assessment. Patient and/or family updated on plan of care and expected duration. Pain level reassessed. Patient is alert, oriented x 3, equal unlabored respirations, skin warm/dry/pink. 13:14 Reassessment: Patient appears in no apparent distress at this time. No changes from kc6 previously documented assessment. Patient and/or family updated on plan of care and expected duration. Pain level reassessed. Patient is alert, oriented x 3, equal unlabored respirations, skin warm/dry/pink. Vital Signs: 09:55 BP 159 / 91; Pulse 107; Resp 24; Temp 98; Pulse Ox 95% ; bp 10:30 Pulse 97; ec2 11:26 BP 141 / 80; Pulse 84; Resp 19 S; Pulse Ox 98% on R/A; kc6 13:14 BP 150 / 87; Pulse 91; Resp 19 S; Pulse Ox 98% on R/A; kc6 ED Course: 09:47 Patient arrived in ED. mr 09:50 Noe Alvarez MD is Attending Physician. ec2 09:57 Triage completed. bp 09:57 Arm band placed on. bp 10:07 Renee Dyer, SU is Primary Nurse. kc6 10:21 Patient has correct armband on for positive identification. Bed in low position. Call kc6 light in reach. Side rails up X 1. threat monitoring analyst on. Pulse ox on. NIBP on. Door closed. Noise minimized. Lights dimmed. Pillow given. 10:21 Inserted saline lock: 20 gauge in left antecubital area, using aseptic technique. Blood kc6 collected. Flushed with 10 mL NS. Patient maintains SpO2 saturation greater than 95% on room air. 11:15 CT Chest For PE Angio In Process Unspecified. EDMS 11:38 XRAY Chest (1 view) In Process Unspecified. EDMS 13:45 No provider procedures requiring assistance completed. IV discontinued, intact, kc6 bleeding controlled, No redness/swelling at site. Pressure dressing applied. Administered Medications: 10:33 Not Given (Patient Refused): [id number] mg IVP once kc6 10:34 Drug: fentaNYL (PF) IVP 25 mcg IVP once Route: IVP; Site: left antecubital; kc6 11:07 Follow up: Response: No adverse reaction; RASS: Alert and Calm (0) kc6 Medication: 13:45 VIS not applicable for this client. kc6 Outcome: 13:23 Discharge ordered by . ec2 13:45 Discharged to home ambulatory, with significant other, kc6 13:45 Condition: good 13:45 Discharge instructions given to patient, significant other, Instructed on discharge instructions, follow up and referral plans. medication usage, Demonstrated understanding of instructions, follow-up care, medications, Prescriptions given X 1, 13:46 Patient left the ED. kc6 Signatures: Dispatcher [employer] EDMS Bethany Hampton Reg Reg mr Mauricio eBtts, RN RN bp Renee Dyer RN RN kc6 Noe Alvarez MD MD ec2
--- NOTE | 2024-05-29 13:47 | RAD REPORT ---
EXAM: Chest For Pe Angio CLINICAL HISTORY: Chest pain COMPARISON: 2022 TECHNIQUE: Thin axial CT images of the chest were obtained following administration of 100 mL Isovue 370 IV contrast. Multiplanar reconstructions, and 3-D maximum intensity projection reconstructions were generated and reviewed. Exam utilizes a protocol for optimal evaluation of pulmonary arterial tree. All CT scans are performed using dose optimization technique as appropriate and may include automated exposure control or mA/KV adjustment according to patient size. FINDINGS: A pulmonary embolus is not seen No thoracic aortic aneurysm. No pleural effusion. A pericardial effusion not noted. Left coronary arteries aren't dilated. Lungs are clear 2.3 cm hepatic cyst IMPRESSION: Negative for pulmonary embolism Left coronary arteries are dilated
--- NOTE | 2024-05-29 13:48 | RAD REPORT ---
Procedure: Chest Single View History: Chest pain Comparison: 2022 The lungs appear clear of acute infiltrate. No significant pleural effusion noted. The heart is normal size. IMPRESSION: No acute abnormality is displayed.
[2024-05-29 13:50] VITALS: TEMP 98
[2024-05-29 13:53] VITALS: O2SAT 98
[2024-05-29 13:54] VITALS: BP 150/87
--- NOTE | 2024-05-30 12:11 | EKG ---
Test Date: 2024-05-29 Test Time: 10:25:45 Manager Area: SUSAN MEASUREMENT RESULTS: Intervals: Rate: 97 MO: 156 QRSD: 68 QT: 348 QTc: 441 [place]: P: 40 MO: 156 QRS: 55 T: 18 INTERPRETIVE STATEMENTS: Normal sinus rhythm Nonspecific ST abnormality Abnormal ECG Compared to ECG 04/18/2023 09:30:32 No significant changes Electronically Signed On 05-30-24 12:09:07 CDT by Adalberto Vera
== END 2024-05-29 13:46 | disposition home or self-care (01) ==
LOC: ER 09:45
DX: R07.9 Chest pain, unspecified (principal); I10 Essential (primary) hypertension; Z85.3 Personal history of malignant neoplasm of breast
CPT/HCPCS: 85025; 80048; 36415; 84484; 71275; 71045; Q9967; J3010; 93005; 96374; 99285

== ENCOUNTER 2024-12-24 19:06 | Observation (INO) | payer OTHER ==
--- OUTSIDE RECORDS SUMMARY | 2024-12-24 19:20 | XMS REPORT | Continuity of Care Document ---
Author Name Unknown Address [address] [place] [address] [facility] Address [address] [place] [address] Care Team Providers Care Clay Puddler Name Role Phone Cristina Mejia MD Primary Care Physician [phone] ILIA ANGEL Attending Clinician UnavailCRISTINA Jenkins Attending Clinician Unavailable CRISTINA MEJIA Attending Clinician Unavailable Cristina Mejia MD Attending Clinician [phone] KLEBER BOBO Attending Clinician Unavailable KLEBER BOBO Attending Clinician Unavailable Kleber Bobo MD Attending Clinician [phone] ANISA REEVES Attending Clinician Unavailable ANISA REEVES Attending Clinician Unavailable Anisa Reeves MD Attending Clinician [phone] MARIANA PURCELL Attending Clinician Unavailable Paula Miranda MD K.H. Attending Clinician [phone] PAULA MIRANDA K.HJuno Attending Clinician UnavailLuigi Pandey MD Attending Clinician [phone] Visit, Adc Nurse Attending Clinician Unavailable WILLIAM MENDOZA Attending Clinician Unavailable William Mendoza MD Attending Clinician [phone] ELI CASTILLO Attending Clinician Unavailable JERRY MARTINEZ Attending Clinician Unavailable MARY ANNE GARCIA Attending Clinician Unavailable Mary Anne Garcia NP Attending Clinician [phone] Doctor Unassigned, [place] Attending Clinician U navailelier Kent LVN, Zara Attending Clinician Unavailmateus IRELAND III, JUAN PABLO Garcia Attending Clinician Unapatrick Vergara MD, Rolan Chirinos Attending Clinician [phone] 1, [facility] Rad Onc Truebeam Attending Clinician Unav lucille Ireland MD, Juan Pablo Garcia Attending Clinician [phone] Fiorella Cortez MD Attending Clinician + [phone] Eli Castillo MD Attending Clinician [phone] JUAN MANUEL EVANGELISTA Attending Clinician Unavailable JUAN MANUEL EVANGELISTA Attending Clinician Unavailable ROLAN VERGARA RP Attending Clinician Unavailable ROLAN VERGARA RP Attending Clinician Unavailable Physics, [facility] Rad Onc Attending Clinician Unavail able 2, [facility] Rad Oncology Linac Attending Clinician Un available Yassine Neri MD Attending Clinician [phone] Ct, [facility] Rad Oncology Attending Clinician Unavail able EMANUEL MOMIN Attending Clinician UnavailEMANUEL Segovia Attending Clinician UnavailTIANNA Zepeda Attending Clinician Unavailable Tianna Jin MD Attending Clinician [phone] KELY SLATER Attending Clinician Lyndsay vailable YASSINE NERI Attending Clinician Unavailable YASSINE NERI Attending Clinician Unavailable TRAY ABBOTT Attending Clinician Unavailable Tray Jackson Attending Clinician [phone] Emanuel Momin MD Attending Clinician [phone] Jessica CORONEL, Bleén Attending Clinician Unavailmateus Yanez MD, Mariel Lozano Attending Clinician [phone] Karam Bond RN Attending Clinician Unavailab JESSICA Mendoza Attending Clinician Unavailable Mariana Mcclendon Attending Clinician [phone] Dominique Schwab MD Attending Clinician +[phone] DOMINIQUE SCHWAB Attending Clinician Unavailable ILIA BARNES Attending Clinician Unavailable Ilia Barnes MD Attending Clinician [phone] Ashu Henao MD Attending Clinician + Valente Donis DO Attending Clinician [phone] Lab, Ang - Db Attending Clinician Unavailable Mariana Mcclendon Attending Clinician [phone] Damian BLUE, Kelsey Attending Clinician Unavaildheeraj Schwab MD, Dominique Attending Clinician [phone] Lab, Ang - Db Attending Clinician Unavailable FIORELLA CORTEZ Attending Clinician UnaJama Torres DO Attending Clinician [phone] Malachi MANCERA, Tianna B Attending Clinician [phone] Cameron MANCERA, Ilia Attending Clinician [phone] Doctor Unassigned, [place]ver Attending Clinician U Mary Anne Can MD Attending Clinician MARY ANNE BOLANOS Attending Clinician Lyndsay SHI French Attending Clinician Unavailable HIEU CHACON Attending Clinician Unavailable [email or web address]_S Attending Clinician Unavaildheeraj Mendoza MD, William Attending Clinician [phone] TATIANA ROBLES Attending Clinician Unavailable TATIANA ROBLES Attending Clinician Unavailable Minh Sherman MD Attending Clinician [phone] MINH SHERMAN Attending Clinician Unavailable ROSI ALEXANDRE Attending Clinician UnavailTray Mike Attending Clinician [phone] ROBERT KAMARA Attending Clinician Unavailable ROB GROSS Attending Clinician Unavailable Atiya Edwards MD Attending Clinician [phone] KLEBER BOBO Admitting Clinician Unavailable MARY ANNE GARCIA Admitting Clinician Unavailable YASSINE NERI Admitting Clinician Unavailable TRAY ABBOTT Admitting Clinician Unavailable Yassine Neri MD Admitting Clinician [phone] CRISTINA MEJIA Admitting Clinician Unavailable DOMINIQUE SCHWAB Admitting Clinician Unavailable Dominique Schwab MD Admitting Clinician [phone] [email or web address] Admitting Clinician UnavailWILLIAM Perez Admitting Clinician Unavailable Payers Payer Name Policy Type Policy Number Effective Date Expirati on Date Source JADEN VARGAS PLS HMO [id number] 2020 00:00:00 [employer] MEDIC[employer] [id number] GOLD PLUS 2021 7 [id number] 2022 00:00:00 Problems Condition Name Condition Details Condition Category Status Onset Date Resolution Date Last Treatment Date Treating Clinician Comments Source Dizziness Dizziness Disease Active 2- 00:00: 00 [facility] Invasive ductal carcinoma of breast, female, right Invasive ductal carcinoma of breast, female, right Disease Active 2023-09 1- 00:00: 00 [facility] Invasive ductal carcinoma of breast, female, right Invasive ductal carcinoma of breast, female, right Disease Active 2023-09 00:00: 00 [facility] Neuropathy Neuropathy Disease Active 2023-09 0 00:00: 00 [facility] Preop cardiovasc ular exam Preop cardiovasc ular exam Disease Active 2023-09 0 00:00: 00 [facility] Fluctuatin g blood pressure Fluctuatin g blood pressure Disease Active 2023-09 0- 00:00: 00 [facility] Gastric ulcer Gastric ulcer Disease Active 10-05 00:00: 00 [facility] Osteoporos is Osteoporos is Disease Active 2- 00:00: 00 [facility] Abdominal pain, epigastric Abdominal pain, epigastric Disease Active 2022-09 00:00: 00 [facility] Early satiety Early satiety Disease Active 2022-09 00:00: 00 [facility] Tubular adenoma of colon Tubular adenoma of colon Disease Active 2022-09- 00:00: 00 [facility] 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 Added automatic ally from request for surgery [id number] [facility] Inconclusi ve mammogram due to dense breasts Inconclusi ve mammogram due to dense breasts Disease Active 6 00:00: 00 [facility] Sciatica of left side Sciatica of left side Disease Active 2019-09 00:00: 00 [facility] Sciatica of left side Sciatica of left side Disease Active 2019-09 00:00: 00 [facility] Degenerati on of lumbar interverte bral disc Degenerati on of lumbar interverte bral disc Disease Active 09-25 00:00: 00 [facility] Lumbar radiculopa thy Lumbar radiculopa thy Disease Active 09-25 00:00: 00 [facility] Chronic pain disorder Chronic pain disorder Disease Active 09-25 00:00: 00 [facility] Bilateral foot pain Bilateral foot pain Disease Active 6 00:00: 00 [facility] Reflux esophagiti s Reflux esophagiti s Disease Active 2016-09 00:00: 00 Overview: Formattin g of this note might be different from the original. Added automatic ally from request for surgery [id number] [facility] S/P total hysterecto my and BSO (bilateral salpingo-o ophorectom y) S/P total hysterecto my and BSO (bilateral salpingo-o ophorectom y) Disease Active 2016-09 030 00:00: 00 [facility] Breast pain, right Breast pain, right Disease Active 2016-09 0 00:00: 00 [facility] History of colon polyps History of colon polyps Disease Active 2016-09 0 00:00: 00 [facility] Breast pain, right Breast pain, right Disease Active 2016-09 0 00:00: 00 [facility] Abnormal ultrasound of breast Abnormal ultrasound of breast Disease Active 2016-09 0 00:00: 00 Overview: Formattin g of this note might be different from the original. Edema, ductal dilation, and multiple small cysts; 3 month f/u recommend ed. [facility] Uterine procidenti a Uterine procidenti a Disease Active 2016-09 00:00: 00 Overview: Formattin g of this note might be different from the original. Added automatic ally from request for surgery [id number] [facility] Prediabete s Prediabete s Disease Active 05-11 00:00: 00 [facility] Abnormal EKG Abnormal EKG Disease Active 01-26 00:00: 00 [facility] Chest pain, unspecifie d type Chest pain, unspecifie d type Disease Active 01-26 00:00: 00 [facility] Palpitatio ns Palpitatio ns Disease Active 01-26 00:00: 00 [facility] Spinal arthritis Spinal arthritis Disease Active 2015-09 00:00: 00 [facility] Patient is Rastafari Patient is Rastafari Disease Active 05-10 00:00: 00 [facility] Blood transfusio n declined because patient is Rastafari Blood transfusio n declined because patient is Rastafari Disease Active 05-10 00:00: 00 [facility] Colon polyps Colon polyps Disease Active 04-08 00:00: 00 [facility] Chronic neck and back pain Chronic neck and back pain Disease Active 04-08 00:00: 00 Overview: Formattin g of this note might be different from the original. Neck and lower back [facility] Prolapse of female pelvic organs Prolapse of female pelvic organs Disease Active 04-08 00:00: 00 [facility] Anxiety Anxiety Disease Active 04-08 00:00: 00 [facility] Chronic insomnia Chronic insomnia Disease Active 04-08 00:00: 00 [facility] Microscopi c hematuria Microscopi c hematuria Disease Active 04-08 00:00: 00 [facility] Depression Depression Disease Active 04-08 00:00: 00 [facility] Diverticul osis Diverticul osis Disease Active 04-08 00:00: 00 [facility] Hyperlipid emia, unspecifie d hyperlipid emia type Hyperlipid emia, unspecifie d hyperlipid emia type Disease Active 10-24 00:00: 00 [facility] Mixed hyperlipid emia Mixed hyperlipid emia Disease Active 10-24 00:00: 00 [facility] Hypertensi on Hypertensi on Disease Active 10-24 00:00: 00 [facility] Allergies, Adverse Reactions, Alerts Allergy Name Allergy Type Status Severity Reaction(s) Onset Date Inactive Date Treating Clinician Comments Source NO KNOWN ALLERGIE S Drug Class Active [facility] Family History Family Member Diagnosis Comments Start Date Stop Date Sourc e Natural [facility] Maternal grandmother Cancer [facility] Natural mother Hy[facility] Paternal uncle Cancer [facility] Natural [facility]th[facility] sister Depression [facility] Natural sister Diabetes [facility] Natural sister [facility]oporosis [facility] Social History Social Habit Start Date Stop Date Quantity Comments Source ASSERTION Not [facility] Gender identity [facility] Sexual orientation [facility] Alcoholic beverage intake 2024-12-11 00:00:00 2024-12-11 00:00:00 0 /d [facility] Tobacco use and exposure 2024-11-11 00:00:00 2024-11-11 00:00:00 Smokeless tobacco non-user [facility] History of Social function 2024-08-07 00:00:00 2024-08-07 00:00:00 [facility] Alcohol intake 2024-01-02 00:00:00 2024-01-02 00:00:00 0 /d [facility] Exposure to SARS-CoV-2 (event) 2022-12-30 00:00:00 2023-01-09 09:05:00 Not sure [facility] Sex assigned at 1950 00:00:00 1950 00:00:00 [facility] Smoking Status Start Date Stop Date Source Never smoked tobacco [facility] Medications Ordered Medication Name Filled Medication Name Start Date Stop Date Current Medication? Ordering Clinician Indication Dosage Frequency Signature (SIG) Comments Components Source ergocalcife rol, vitamin d2, 1,250 mcg (50,000 unit) capsule 12-11 00:00: 00 Yes [id number] TAKE ONE CAPSULE BY MOUTH ONCE EVERY MONTH [facility] fluticasone propionate 50 mcg/actuati on nasal spray 12-11 00:00: 00 Yes [id number] 2{spray } Use 2 Sprays in each nostril daily. [facility] anastrozole 1 mg tablet 12-03 00:00: 00 Yes [id number] 1mg Take 1 tablet by mouth daily [facility] carvediloL 3.125 mg tablet 11-19 00:00: 00 Yes [id number] 3.125mg Take 1 tablet by mouth 2 (two) times daily. [facility] pravastatin 40 mg tablet 11-19 00:00: 00 Yes [id number] TAKE 1 TABLET BY MOUTH EVERY EVENING [facility] ondansetron 4 mg disintegrat ing tablet 11-19 00:00: 00 Yes [id number] 4mg Take 1 tablet by mouth every 8 (eight) hours as needed for Nausea and Vomiting (N/V). [facility] meclizine (TRAVEL-EAS E (MECLIZINE) ) tablet 25 mg 10-23 18:45: 00 10-23 18:37 :00 No 25mg 25 mg, Oral, ONCE, 1 dose, On Mon10/23/24 at 1245, LAI [facility] ondansetron (ZOFRAN (PF)) injection 4 mg 10-23 18:30: 00 10-23 18:24 :00 No 4mg 4 mg, Slow IV Push, ONCE, 1 dose, On Mon10/23/24 at 1230, Administer over 2-5 Minutes, 2 mL [facility] sodium chloride (NS) injection 5 mL 10-23 16:57: 12 Yes 5mL 5 mL, Intravenou s, PRN, Starting on Mon10/23/24 at 1057, Until Discontinu ed, Routine, IV line flushing [facility] meclizine 25 mg tablet 10-23 00:00: 00 Yes [id number] 25mg Take 1 tablet by mouth every 8 (eight) hours as needed for Dizziness. [facility] LISINOPRIL 20 mg tablet 10-15 00:00: 00 Yes [id number] 20mg TAKE 1 TABLET BY MOUTH DAILY [facility] pravastatin 40 mg tablet 09-30 14:05: 29 10-05 00:00 :00 Yes 40mg TAKE 1 TABLET BY MOUTH EVERY DAY for 90 [facility] dicyclomine 10 mg capsule 09-30 00:00: 00 Yes [id number] 10mg Take 1 capsule by mouth every 6 (six) hours as needed for Abdominal pain. [facility] omeprazole 40 mg capsule 09-30 00:00: 00 Yes [id number] 40mg Take 1 capsule by mouth daily. [facility] ondansetron 4 mg disintegrat ing tablet 09-30 00:00: 00 Yes [id number] 4mg Take 1 tablet by mouth every 8 (eight) hours as needed for Nausea and Vomiting (N/V). [facility] carvediloL 3.125 mg tablet 09-30 00:00: 00 Yes [id number] 3.125mg Take 1 tablet by mouth 2 (two) times daily as needed for Other (Elevated Blood pressure). [facility] ergocalcife rol, vitamin d2, 1,250 mcg (50,000 unit) capsule 09-30 00:00: 00 12-11 00:00 :00 No [id number] TAKE ONE CAPSULE BY MOUTH ONCE EVERY MONTH [facility] anastrozole 1 mg tablet 2024-1 2-31 00:00: 00 12-03 00:00 :00 No [id number] 1mg Take 1 tablet by mouth daily [facility] omeprazole 40 mg capsule 2023-09 2-23 00:00: 00 09-30 00:00 :00 No [id number] 40mg Take 1 capsule by mouth daily. [facility] SUCRALFATE 1 gram tablet 2023-09 2 00:00: 00 Yes [id number] 1g TAKE 1 TABLET BY MOUTH FOUR TIMES DAILY [facility] fluticasone propionate 50 mcg/actuati on nasal spray 2023-09 1- 00:00: 00 12-11 00:00 :00 No [id number] 2{spray } Use 2 Sprays in each nostril daily. [facility] fluticasone propionate 50 mcg/actuati on nasal spray 2023-09 1- 00:00: 00 07-16 00:00 :00 No [id number] 2{spray } SHAKE LIQUID AND USE 2 SPRAYS IN EACH NOSTRIL DAILY [facility] HYDROcodone -acetaminop hen 10-325 mg tablet 2023-09 0-16 13:03: 44 Yes 1{tbl} Take 1 tablet by mouth every 6 (six) hours as needed. [facility] gabapentin 600 mg tablet 2023-09 0-11 00:00: 00 Yes 600mg Take 1 tablet by mouth 3 (three) times daily. [facility] ERGOCALCIFE ROL, VITAMIN D2, 1,250 mcg (50,000 unit) capsule 2023-09 0-11 00:00: 00 09-30 00:00 :00 No [id number] TAKE ONE CAPSULE BY MOUTH ONCE EVERY MONTH [facility] bromphenira mine-pseudo ephedrine-D M (BROMFED DM) 2-30-10 mg/5 mL syrup 2023-09 0-07 00:00: 00 09-30 00:00 :00 No [id number] 5mL Take 5 mL by mouth 3 (three) times daily as needed for Cold symptoms. [facility] amoxicillin -clavulanat e (AUGMENTIN) 875-125 mg per tablet 2023-09 0-07 00:00: 00 07-16 00:00 :00 No [id number] 1{tbl} Take 1 tablet by mouth 2 (two) times daily. [facility] traMADoL (ULTRAM) tablet 50 mg 2023-09 15:35: 29 06-06 20:30 :53 No 50mg [facility] acetaminoph en (TYLENOL) tablet 325 mg 2023-09 15:35: 29 06-06 20:30 :53 No 325mg [facility] HYDROcodone -acetaminop hen (NORCO 5) tablet 1 tablet 2023-09 15:30: 00 06-06 15:59 :00 No 1{tbl} 1 tablet, Oral, ONCE, 1 dose, On Pretty 06/06/24 at 1030, Routine, PACU [facility] lactated ringers IV infusion 1,000 mL 2023-09 15:30: 00 06-06 20:30 :54 No 1000mL at 75 mL/hr, 1,000 mL, IV Infusion, CONTINUOUS , Starting on Pretty 06/06/24 at 1030, Until Pretty 06/06/24 at 1530, Routine, PACU [facility] HYDROmorpho ne (DILAUDID) injection 0.2 mg 2023-09 15:27: 55 06-06 20:30 :53 No .2mg 0.2 mg, Slow IV Push, Q15MIN PRN, 10 doses, Starting on Pretty 06/06/24 at 1027, Until Pretty 10 at 1530, Routine, Pain (scale 7-10), PACU, Is this medication approved by a Faculty level provider? 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 Restricted medication : PACU RECOVERY [facility] FENTanyl (PF) (SUBLIMAZE) injection 25 mcg 2023-09 15:27: 55 06-06 20:30 :53 No 25ug 25 mcg, Slow IV Push, Q5MIN PRN, 4 doses, Starting on Pretty 06/06/24 at 1027, Until Pretty 06/06/24 at 1530, Routine, Pain Scale 4-6, PACU [facility] ondansetron (ZOFRAN (PF)) injection 4 mg 2023-09 0 15:27: 55 06-06 20:30 :54 No 4mg 4 mg, Slow IV Push, PRN, 1 dose, Starting on Pretty 06/06/24 at 1027, Until Pretty 06/06/24 at 1530, Routine, Nausea and Vomiting (N/V), PACU [facility] lidocaine 1% (PF) (XYLOCAINE) injection 2023-09 14:08: 00 06-06 15:55 :45 No PRN, Starting on Pretty 06/06/24 at 0908, Until Pretty 06/06/24 at 1055, Routine, Intra-op [facility] bupivacaine (preserv free) (SENSORCAIN E MPF) 0.25 % (2.5 mg/mL) injection 2023-09 14:08: 00 06-06 15:55 :45 No PRN, Starting on Pretty 06/06/24 at 0908, Until Pretty 06/06/24 at 1055, Routine, Intra-op [facility] Tc 99m-jeff. sulfur colloid injection 1.1 millicurie 2023-09 13:30: 00 06-06 13:20 :00 No [id number] 1.1mCi 1.1 millicurie , Intraderma l, ONCE, 1 dose, On Pretty 06/06/24 at 0830, Routine [facility] ibuprofen 400 mg tablet 2023-09 00:00: 00 07-16 00:00 :00 No [id number] 400mg Take 1 tablet by mouth every 8 (eight) hours. Alternate with Tylenol [facility] acetaminoph en 500 mg tablet acetaminoph en 500 mg tablet 2023-09 00:00: 00 06-06 00:00 :00 No [id number] 1000mg Take 2 tablets by mouth every 8 (eight) hours. Alternate with Ibuprofen [facility] traMADoL 50 mg tablet traMADoL 50 mg tablet 2023-09 0-03 00:00: 00 06-06 00:00 :00 No [id number] 50mg Take 1 tablet by mouth every 6 (six) hours as needed for Pain (scale 4-6) or Pain (scale 7-10). Indication s: acute pain [facility] omeprazole 40 mg capsule 05-30 00:00: 00 07-16 00:00 :00 No [id number] 40mg TAKE 1 CAPSULE BY MOUTH DAILY [facility] fluticasone propionate 50 mcg/actuati on nasal spray 05-30 00:00: 00 07-09 00:00 :00 No [id number] 2{spray } SHAKE LIQUID AND USE 2 SPRAYS IN EACH NOSTRIL DAILY [facility] dicyclomine 10 mg capsule 04-05 00:00: 00 09-30 00:00 :00 No [id number] 10mg Take 1 capsule by mouth every 6 (six) hours as needed for Abdominal pain. [facility] methylPREDN ISolone (MEDROL, SHELLIE,) 4 mg tablets 04-05 00:00: 00 05-16 00:00 :00 No [id number] 9100 Take by mouth SEE-INSTRU CTIONS. follow package directions [facility] methylPREDN ISolone (MEDROL, SHELLIE,) 4 mg tablets 03-06 00:00: 00 04-05 00:00 :00 No [id number] 9100 Take by mouth SEE-INSTRU CTIONS. follow package directions [facility] gallium-68 dotatate (NETSPOT) injection 5.31 millicurie 02-18 18:00: 00 02-18 18:04 :00 No [id number] 5.31mCi 5.31 millicurie , Intravenou s, ONCE, 1 dose, On 02/19/24 at 1315, Routine [facility] Diclofenac Sodium (ARTHRITIS PAIN, DICLOFENAC, ) 1 % gel 01-03 09:16: 37 01-03 00:00 :00 No 2g Apply 2 g to affected area(s) 4 (four) times daily as needed. [facility] tiZANidine 4 mg tablet 01-03 08:43: 08 Yes 4mg Take 1 tablet by mouth at bedtime. [facility] chlorthalid one 25 mg tablet 01-03 08:43: 08 Yes 25mg Take 1 tablet by mouth daily. [facility] alendronate 70 mg tablet 01-03 08:43: 08 Yes 70mg Take 1 tablet by mouth once every month. [facility] meclizine 25 mg tablet 01-03 08:43: 08 10-23 00:00 :00 No 25mg Take 1 tablet by mouth 3 (three) times daily as needed for Dizziness. [facility] lisinopriL 40 mg tablet 01-03 08:42: 13 01-03 00:00 :00 No 40mg Take 1 tablet by mouth daily. [facility] diclofenac dodium (ARTHRITIS PAIN, DICLOFENAC, ) 1 % gel 01-03 00:00: 00 Yes [id number] 2g Apply 2 g to affected area(s) 4 (four) times daily as needed for Pain. [facility] lidocaine 2% viscous 2 % solution 01-03 00:00: 00 Yes [id number] 10mL Take 10 mL by mouth every 4 (four) hours as needed for Oral mucosal pain. [facility] dicyclomine 10 mg capsule 01-03 00:00: 00 04-05 00:00 :00 No [id number] 10mg Take 1 capsule by mouth every 6 (six) hours as needed for Abdominal pain. [facility] gabapentin 300 mg capsule 01-01 13:52: 10 Yes 300mg Take 1 capsule by mouth 2 (two) times daily. [facility] methocarbam oL 500 mg tablet 12-28 00:00: 00 Yes 500mg Take 1 tablet by mouth at bedtime as needed. [facility] lidocaine 2% viscous 2 % solution 12-03 00:00: 00 01-03 00:00 :00 No [id number] 10mL Take 10 mL by mouth every 4 (four) hours as needed for Oral mucosal pain. [facility] (BENTYL) injection 20 mg 10-19 22:00: 00 10-19 20:10 :48 No [id number] 20mg [facility] cefUROXime 500 mg tablet 10-19 00:00: 00 01-03 00:00 :00 No [id number] 500mg Take 1 tablet by mouth 2 (two) times daily. [facility] [facility] dicyclomine 10 mg capsule 10-19 00:00: 00 01-03 00:00 :00 No [id number] 10mg Take 1 capsule by mouth every 6 (six) hours as needed for Abdominal pain. [facility] simethicone (GAS RELIEF (SIMETHICON E)) 40 mg/0.6 mL drops 10-17 17:35: 00 Yes PRN, Starting on Mon10/17/23 at 1135, Until Discontinu ed, Routine, Intra-op [facility] tiZANidine 4 mg tablet 10-17 13:04: 05 Yes 4mg Take 1 tablet by mouth at bedtime. [facility] meclizine 25 mg tablet 10-17 13:04: 05 Yes 25mg Take 1 tablet by mouth 3 (three) times daily as needed for Dizziness. [facility] gabapentin 300 mg capsule 10-17 13:04: 05 Yes 300mg Take 1 capsule by mouth 2 (two) times daily. [facility] chlorthalid one 25 mg tablet 10-17 13:04: 05 Yes 25mg Take 1 tablet by mouth daily. [facility] alendronate 70 mg tablet 10-17 13:04: 05 Yes 70mg Take 1 tablet by mouth once every month. [facility] Diclofenac Sodium (ARTHRITIS PAIN, DICLOFENAC, ) 1 % gel 10-17 13:04: 05 Yes 2g Apply 2 g to affected area(s) 4 (four) times daily as needed. [facility] lisinopriL 40 mg tablet 10-17 13:04: 05 Yes 40mg Take 1 tablet by mouth daily. [facility] LISINOPRIL 20 mg tablet 10-12 00:00: 00 10-15 00:00 :00 No [id number] 20mg TAKE 1 TABLET BY MOUTH DAILY [facility] ATORVASTATI N 40 mg tablet 10-12 00:00: 00 09-30 00:00 :00 No [id number] 40mg TAKE 1 TABLET BY MOUTH AT BEDTIME [facility] peg-electro lyte soln 236-22.74-6 .74 -5.86 gram solution 10-11 00:00: 00 01-03 00:00 :00 No Take as directed before colonoscop y [facility] meloxicam 15 mg tablet 10-05 14:44: 27 10-05 00:00 :00 No 15mg Take 1 tablet by mouth daily. [facility] pravastatin 40 mg tablet 10-05 14:34: 28 10-05 00:00 :00 No 40mg Take 1 tablet by mouth at bedtime. [facility] HYDROcodone -acetaminop hen 7.5-325 mg per tablet 10-05 14:33: 54 10-05 00:00 :00 No 1{tbl} Take 1 tablet by mouth every 6 (six) hours as needed. [facility] tiZANidine 4 mg tablet 10-05 14:20: 06 Yes 4mg Take 1 tablet by mouth at bedtime. [facility] meclizine 25 mg tablet 10-05 14:20: 06 Yes 25mg Take 1 tablet by mouth 3 (three) times daily as needed for Dizziness. [facility] gabapentin 300 mg capsule 10-05 14:20: 06 Yes 300mg Take 1 capsule by mouth 2 (two) times daily. [facility] chlorthalid one 25 mg tablet 10-05 14:20: 06 Yes 25mg Take 1 tablet by mouth daily. [facility] alendronate 70 mg tablet 10-05 14:20: 06 Yes 70mg Take 1 tablet by mouth once every month. [facility] lisinopriL 40 mg tablet 10-05 14:20: 06 01-03 00:00 :00 No 40mg Take 1 tablet by mouth daily. [facility] calcium carbonate (CALCIUM 600) 600 mg calcium (1,500 mg) tablet 10-05 00:00: 00 Yes [id number] 600mg Take 1 tablet by mouth 2 (two) times daily with meals. [facility] omeprazole 40 mg capsule 10-05 00:00: 00 05-30 00:00 :00 No [id number] 40mg Take 1 capsule by mouth daily. [facility] hydrocortis one 1 % cream 10-05 00:00: 00 10-20 05:59 :00 No [id number] Apply to area(s) daily for 14 days. [facility] Diclofenac Sodium (ARTHRITIS PAIN, DICLOFENAC, ) 1 % gel 10-04 17:20: 23 01-03 00:00 :00 No 2g Apply 2 g to affected area(s) 4 (four) times daily as needed. [facility] HYDROcodone -acetaminop hen 10-325 mg tablet 2022-09 00:00: 00 06-06 00:00 :00 No TAKE 1 TABLET BY MOUTH EVERY 12 HOURS NEEDED FOR MODERATE TO SEVERE PAIN [facility] SUCRALFATE 1 gram tablet 2022-09 1-20 00:00: 00 08-05 00:00 :00 No [id number] 1g TAKE 1 TABLET BY MOUTH FOUR TIMES DAILY [facility] omeprazole 40 mg capsule 2022-09 0-30 00:00: 00 10-05 00:00 :00 No [id number] 40mg TAKE 1 CAPSULE BY MOUTH DAILY [facility] lisinopriL 20 mg tablet 2022-09 0 00:00: 00 10-05 00:00 :00 No [id number] 20mg Take 1 tablet by mouth 2 (two) times daily. [facility] ergocalcife rol, vitamin d2, 1,250 mcg (50,000 unit) capsule 05-18 00:00: 00 06-14 00:00 :00 No [id number] 45334V Take 1 capsule by mouth once every month. [facility] fluticasone propionate 50 mcg/actuati on nasal spray 04-25 00:00: 00 05-30 00:00 :00 No [id number] 2{spray } Use 2 Sprays in each nostril daily. [facility] sucralfate 1 gram tablet 04-25 00:00: 00 07-24 00:00 :00 No [id number] 1g Take 1 tablet by mouth 4 (four) times daily. [facility] ergocalcife rol, vitamin d2, 1,250 mcg (50,000 unit) capsule 04-25 00:00: 00 05-18 00:00 :00 No [id number] Take 1 capsule by mouth once every month. [facility] SUCRALFATE 1 gram tablet 04-21 00:00: 00 04-25 00:00 :00 No [id number] 1g TAKE 1 TABLET BY MOUTH FOUR TIMES DAILY [facility] polyethylen e glycol 3350 17 gram powder 12-29 00:00: 00 Yes [id number] 1{packe t} Take 1 Packet by mouth once daily as needed for Constipati on. [facility] omeprazole 40 mg capsule 12-29 00:00: 00 07-03 00:00 :00 No [id number] 40mg Take 1 capsule by mouth daily. [facility] sucralfate 1 gram tablet 12-29 00:00: 00 2023- 08-18 00:00 :00 No [id number] 1g Take 1 tablet by mouth 4 (four) times daily. [facility] peg-electro lyte soln 236-22.74-6 .74 -5.86 gram solution 4-04 00:00: 00 12-07 04:59 :00 No 4000mL Take 4,000 mL by mouth once now for 1 dose. [facility] Blood Pressure Monitor (BLOOD PRESSURE KIT) Kit - 00:00: 00 Yes [id number] Use as directed twice daily to check blood pressure. [facility] Blood Pressure Monitor (BLOOD PRESSURE KIT) Kit 10-25 00:00: 00 Yes [id number] Use as directed twice daily to check blood pressure. [facility] atorvastati n 40 mg tablet 10-25 00:00: 00 10-12 00:00 :00 No [id number] 40mg Take 1 tablet by mouth at bedtime. [facility] lisinopriL 20 mg tablet 10-25 00:00: 00 06-12 00:00 :00 No [id number] 20mg Take 1 tablet by mouth daily. [facility] benzonatate 200 mg capsule 2021-09 00:00: 00 09-23 00:00 :00 No [id number] 200mg Take 1 capsule by mouth 3 (three) times daily as needed for Cough. [facility] promethazin e-dextromet horphan 6.25-15 mg/5 mL syrup 2021-09 00:00: 00 09-23 00:00 :00 No [id number] 5mL Take 5 mL by mouth 4 (four) times daily as needed for Cough. [facility] omeprazole 20 mg capsule 2021-09 00:00: 00 09-23 00:00 :00 No [id number] 20mg Take 1 capsule by mouth 2 (two) times daily. [facility] doxycycline hyclate 100 mg tablet 2021-09 00:00: 00 09-23 00:00 :00 No [id number] 100mg Take 1 tablet by mouth 2 (two) times daily. [facility] metroNIDAZO LE 250 mg tablet 2021-09 00:00: 00 08-07 05:59 :00 No [id number] 250mg Take 1 tablet by mouth 4 (four) times daily for 10 days. [facility] OMEPRAZOLE 20 mg capsule 2017-09 0-29 00:00: 07-27 00:00 :00 No TAKE 1 CAPSULE BY MOUTH ONCE DAILY [facility] fluticasone 50 mcg/actuati on nasal spray 05-14 00:00: 00 04-25 00:00 :00 No 2{spray } Use 2 Sprays in each nostril daily. [facility] tiZANidine 2 mg tablet 05-14 00:00: 00 09-23 00:00 :00 No [id number] TAKE 1 TABLET BY MOUTH EVERY 8 HOURS NEEDED FOR MUSCLE PAIN OR SPASMS [facility] benzonatate 200 mg capsule 05-14 00:00: 08-15 00:00 :00 No 200mg Take 1 capsule by mouth 3 (three) times daily as needed for Cough. [facility] pravastatin 40 mg tablet 02-04 00:00: 00 10-25 00:00 :00 No 40mg Take 1 tablet by mouth at bedtime. [facility] lisinopril 20 mg tablet 02-04 00:00: 00 10-25 00:00 :00 No 20mg Take 1 tablet by mouth daily. [facility] loratadine 10 mg tablet 01-31 00:00: 00 07-16 00:00 :00 No 10mg Take 1 tablet by mouth daily. [facility] SERTraline (ZOLOFT) 50 mg tablet 01-31 00:00: 00 08-15 00:00 :00 No [id number] 50mg Take 1 tablet by mouth daily. [facility] traZODONE 100 mg tablet 01-31 00:00: 08-15 00:00 :00 No [id number] 100mg Take 1 tablet by mouth at bedtime. [facility] HYDROcodone -acetaminop hen 5-325 mg tablet 2016-09 00:00: 00 10-05 00:00 :00 No 2{tbl} Take 2 tablets by mouth every 6 (six) hours as needed for Pain (scale 7-10). [facility] ibuprofen 600 mg tablet 2016-09 00:00: 00 10-05 00:00 :00 No 600mg Take 1 tablet by mouth every 6 (six) hours as needed for Pain (scale 4-6) or Alternate with [place] for pain scale 1-3. [facility] simethicone 80 mg chewable tablet 2016-09 00:00: 00 10-05 00:00 :00 No 80mg Take 1 tablet by mouth after meals and at bedtime. [facility] docusate 100 mg capsule 2016-09 00:00: 00 08-15 00:00 :00 No 100mg Take 1 capsule by mouth 2 (two) times daily as needed for Constipati on. [facility] conjugated estrogens (PREMARIN) 0.625 mg/gram vaginal cream 2016-09 0 00:00: 00 08-15 00:00 :00 No [id number] .5g Insert 0.5 g into vagina 2 (two) times a week on Monday and Monday. [facility] traMADOL (ULTRAM) 50 mg tablet 2015-09 00:00: 00 08-05 00:00 :00 No TAKE ONE TABLET BY MOUTH EVERY 8 HOURS NEEDED FOR PAIN UNRELIEVED BY NON-NARCOT IC ANALGESICS [facility] conjugated estrogens (PREMARIN) 0.625 mg/gram vaginal cream 05-10 00:00: 00 09-02 00:00 :00 No [id number] .5g Insert 0.5 g into vagina 2 (two) times a week on Monday and Monday. [facility] fluconazole (DIFLUCAN) 150 mg tablet 05-03 00:00: 00 11-01 00:00 :00 No [facility]-3 Fatty Acids (FISH OIL CONCENTRATE ) 1,000 mg Cap 04-13 00:00: 00 07-04 00:00 :00 No 1{gabriellau le} Take 1 capsule by mouth 2 (two) times daily with meals. [facility] tiZANidine (ZANAFLEX) 2 mg tablet 04-08 00:00: 00 05-04 00:00 :00 No [id number] 2mg Take 1 tablet by mouth every 8 (eight) hours as needed (muscle pain or spasm). [facility] lisinopril (PRINIVIL,Z ESTRIL) 20 mg tablet 04-08 00:00: 00 08-24 00:00 :00 No [id number] 20mg Take 1 tablet by mouth daily. [facility] traZODONE (DESYREL) 100 mg tablet 04-08 00:00: 00 08-22 00:00 :00 No [id number] 100mg Take 1 tablet by mouth at bedtime. [facility] SERTraline (ZOLOFT) 50 mg tablet 04-08 00:00: 00 08-22 00:00 :00 No [id number] 50mg Take 1 tablet by mouth daily. [facility] pravastatin (PRAVACHOL) 20 mg tablet 04-08 00:00: 00 08-22 00:00 :00 No [id number] 20mg Take 1 tablet by mouth at bedtime. [facility] Immunizations Ordered Immunization Name Filled Immunization Name Date Status Comments Source Zoster Vaccine Recombinant 2023-09-06 00:00:00 Completed Zoster Vaccine Recombinant 2023-09-06 00:00:00 Completed Zoster Vaccine Recombinant 2023-09-06 00:00:00 Completed Zoster Vaccine Recombinant 2023-09-06 00:00:00 Completed Zoster Vaccine Recombinant 2023-09-06 00:00:00 Completed Zoster Vaccine Recombinant 2023-09-06 00:00:00 Completed Zoster Vaccine Recombinant 2023-07-07 00:00:00 Completed Zoster Vaccine Recombinant 2023-07-07 00:00:00 Completed Zoster Vaccine Recombinant 2023-07-07 00:00:00 Completed Zoster Vaccine Recombinant 2023-07-07 00:00:00 Completed Zoster Vaccine Recombinant 2023-07-07 00:00:00 Completed Zoster Vaccine Recombinant 2023-07-07 00:00:00 Completed Influenza Virus Vaccine,quad Im,preserve Free 65+ (FLUAD) 2023-07-05 00:00:00 Completed Influenza Virus Vaccine,quad Im,preserve Free 65+ (FLUAD) 2023-07-05 00:00:00 Completed Influenza Virus Vaccine,quad Im,preserve Free 65+ (FLUAD) 2023-07-05 00:00:00 Completed Influenza Virus Vaccine,quad Im,preserve Free 65+ (FLUAD) 2023-07-05 00:00:00 Completed Influenza Virus Vaccine,quad Im,preserve Free 65+ (FLUAD) 2023-07-05 00:00:00 Completed Influenza Virus Vaccine,quad Im,preserve Free 65+ (FLUAD) 2023-07-05 00:00:00 Completed Influenza High Dose 2022-06-04 00:00:00 Completed [facility] Influenza High Dose 2022-06-04 00:00:00 Completed [facility] Influenza High Dose 2022-06-04 00:00:00 Completed [facility] Influenza High Dose 2022-06-04 00:00:00 Completed [facility] Influenza High Dose 2022-06-04 00:00:00 Completed [facility] Influenza High Dose 2022-06-04 00:00:00 Completed [facility] Influenza High Dose 2022-06-04 00:00:00 Completed [facility] Influenza High Dose 2022-06-04 00:00:00 Completed [facility] Influenza, High-Dose, Trivalent, PF (FLUZONE) 2022-06-04 00:00:00 Completed [facility] Influenza, High-Dose, Trivalent, PF (FLUZONE) 2022-06-04 00:00:00 Completed [facility] Influenza, High-Dose, Trivalent, PF (FLUZONE) 2022-06-04 00:00:00 Completed [facility] Influenza, High-Dose, Trivalent, PF (FLUZONE) 2022-06-04 00:00:00 Completed [facility] Influenza High Dose 2022-06-04 00:00:00 Completed [facility] Influenza, High-Dose, Trivalent, PF (FLUZONE) 2022-06-04 00:00:00 Completed [facility] Influenza, High-Dose, Trivalent, PF (FLUZONE) 2022-06-04 00:00:00 Completed [facility] Influenza High Dose 2022-06-04 00:00:00 Completed [facility] Influenza High Dose 2022-06-04 00:00:00 Completed [facility] Influenza High Dose 2022-06-04 00:00:00 Completed [facility] Influenza High Dose 2022-06-04 00:00:00 Completed [facility] Influenza High Dose 2022-06-04 00:00:00 Completed [facility] Influenza High Dose 2022-06-04 00:00:00 Completed [facility] Influenza High Dose 2022-06-04 00:00:00 Completed [facility] Influenza High Dose 2022-06-04 00:00:00 Completed [facility] Influenza High Dose 2022-06-04 00:00:00 Completed [facility] Influenza High Dose 2022-06-04 00:00:00 Completed [facility] Influenza High Dose 2022-06-04 00:00:00 Completed [facility] Influenza High Dose 2022-06-04 00:00:00 Completed [facility] Influenza High Dose 2022-06-04 00:00:00 Completed [facility] Influenza High Dose 2022-06-04 00:00:00 Completed [facility] Influenza High Dose 2022-06-04 00:00:00 Completed [facility] Influenza High Dose 2022-06-04 00:00:00 Completed [facility] Influenza High Dose 2022-06-04 00:00:00 Completed [facility] Influenza High Dose Quad 2022-05-25 00:00:00 Completed Influenza High Dose Quad 2022-05-25 00:00:00 Completed Influenza High Dose Quad 2022-05-25 00:00:00 Completed Influenza High Dose Quad 2022-05-25 00:00:00 Completed Influenza High Dose Quad 2022-05-25 00:00:00 Completed Influenza High Dose Quad 2022-05-25 00:00:00 Completed SARS-COV-2 COVID-19 MODERNA 0.5ML BOOSTER VACCINE 2021-07-05 00:00:00 Completed [facility] SARS-COV-2 COVID-19 MODERNA 0.5ML BOOSTER VACCINE 2021-07-05 00:00:00 Completed [facility] SARS-COV-2 COVID-19 MODERNA 0.5ML BOOSTER VACCINE 2021-07-05 00:00:00 Completed [facility] SARS-COV-2 COVID-19 MODERNA 0.5ML BOOSTER VACCINE 2021-07-05 00:00:00 Completed [facility] SARS-COV-2 COVID-19 MODERNA 0.5ML BOOSTER VACCINE 2021-07-05 00:00:00 Completed [facility] SARS-COV-2 COVID-19 MODERNA 0.5ML BOOSTER VACCINE 2021-07-05 00:00:00 Completed [facility] SARS-COV-2 COVID-19 MODERNA 0.5ML BOOSTER VACCINE 2021-07-05 00:00:00 Completed [facility] SARS-COV-2 COVID-19 MODERNA 0.5ML BOOSTER VACCINE 2021-07-05 00:00:00 Completed [facility] SARS-COV-2 COVID-19 MODERNA 0.5ML BOOSTER VACCINE 2021-07-05 00:00:00 Completed SARS-COV-2 COVID-19 VACCINE - (MODERNA) 2021-07-05 00:00:00 Completed SARS-COV-2 COVID-19 MODERNA 0.5ML BOOSTER VACCINE 2021-07-05 00:00:00 Completed SARS-COV-2 COVID-19 VACCINE - (MODERNA) 2021-07-05 00:00:00 Completed SARS-COV-2 COVID-19 MODERNA 0.5ML BOOSTER VACCINE 2021-07-05 00:00:00 Completed SARS-COV-2 COVID-19 VACCINE - (MODERNA) 2021-07-05 00:00:00 Completed SARS-COV-2 COVID-19 MODERNA 0.5ML BOOSTER VACCINE 2021-07-05 00:00:00 Completed SARS-COV-2 COVID-19 VACCINE - (MODERNA) 2021-07-05 00:00:00 Completed SARS-COV-2 COVID-19 MODERNA 0.5ML BOOSTER VACCINE 2021-07-05 00:00:00 Completed SARS-COV-2 COVID-19 VACCINE - (MODERNA) 2021-07-05 00:00:00 Completed SARS-COV-2 COVID-19 MODERNA 0.5ML BOOSTER VACCINE 2021-07-05 00:00:00 Completed [facility] SARS-COV-2 COVID-19 MODERNA 0.5ML BOOSTER VACCINE 2021-07-05 00:00:00 Completed SARS-COV-2 COVID-19 VACCINE - (MODERNA) 2021-07-05 00:00:00 Completed SARS-COV-2 COVID-19 MODERNA 0.5ML BOOSTER VACCINE 2021-07-05 00:00:00 Completed [facility] SARS-COV-2 COVID-19 MODERNA 0.5ML BOOSTER VACCINE 2021-07-05 00:00:00 Completed [facility] SARS-COV-2 COVID-19 MODERNA 0.5ML BOOSTER VACCINE 2021-07-05 00:00:00 Completed [facility] SARS-COV-2 COVID-19 MODERNA 0.5ML BOOSTER VACCINE 2021-07-05 00:00:00 Completed [facility] SARS-COV-2 COVID-19 MODERNA 0.5ML BOOSTER VACCINE 2021-07-05 00:00:00 Completed [facility] SARS-COV-2 COVID-19 MODERNA 0.5ML BOOSTER VACCINE 2021-07-05 00:00:00 Completed [facility] SARS-COV-2 COVID-19 MODERNA 0.5ML BOOSTER VACCINE 2021-07-05 00:00:00 Completed [facility] SARS-COV-2 COVID-19 MODERNA 0.5ML BOOSTER VACCINE 2021-07-05 00:00:00 Completed [facility] SARS-COV-2 COVID-19 MODERNA 0.5ML BOOSTER VACCINE 2021-07-05 00:00:00 Completed [facility] SARS-COV-2 COVID-19 MODERNA 0.5ML BOOSTER VACCINE 2021-07-05 00:00:00 Completed [facility] SARS-COV-2 COVID-19 MODERNA 0.5ML BOOSTER VACCINE 2021-07-05 00:00:00 Completed [facility] SARS-COV-2 COVID-19 MODERNA 0.5ML BOOSTER VACCINE 2021-07-05 00:00:00 Completed [facility] SARS-COV-2 COVID-19 MODERNA 0.5ML BOOSTER VACCINE 2021-07-05 00:00:00 Completed [facility] SARS-COV-2 COVID-19 MODERNA 0.5ML BOOSTER VACCINE 2021-07-05 00:00:00 Completed [facility] SARS-COV-2 COVID-19 MODERNA 0.5ML BOOSTER VACCINE 2021-07-05 00:00:00 Completed [facility] SARS-COV-2 COVID-19 MODERNA 0.5ML BOOSTER VACCINE 2021-07-05 00:00:00 Completed [facility] SARS-COV-2 COVID-19 MODERNA 0.5ML BOOSTER VACCINE 2021-07-05 00:00:00 Completed [facility] Influenza High Dose Quad 2021-05-31 00:00:00 Completed Influenza High Dose Quad 2021-05-31 00:00:00 Completed Influenza High Dose Quad 2021-05-31 00:00:00 Completed Influenza High Dose Quad 2021-05-31 00:00:00 Completed Influenza High Dose Quad 2021-05-31 00:00:00 Completed Influenza High Dose Quad 2021-05-31 00:00:00 Completed SARS-COV-2 COVID-19 VACCINE - (MODERNA) 2020-10-13 00:00:00 Completed [facility] SARS-COV-2 COVID-19 VACCINE - (MODERNA) 2020-10-13 00:00:00 Completed [facility] SARS-COV-2 COVID-19 VACCINE - (MODERNA) 2020-10-13 00:00:00 Completed [facility] SARS-COV-2 COVID-19 VACCINE - (MODERNA) 2020-10-13 00:00:00 Completed [facility] SARS-COV-2 COVID-19 VACCINE - (MODERNA) 2020-10-13 00:00:00 Completed [facility] SARS-COV-2 COVID-19 VACCINE - (MODERNA) 2020-10-13 00:00:00 Completed [facility] SARS-COV-2 COVID-19 VACCINE - (MODERNA) 2020-10-13 00:00:00 Completed [facility] SARS-COV-2 COVID-19 VACCINE - (MODERNA) 2020-10-13 00:00:00 Completed [facility] SARS-COV-2 COVID-19 VACCINE - (MODERNA) 2020-10-13 00:00:00 Completed SARS-COV-2 COVID-19 VACCINE - (MODERNA) 2020-10-13 00:00:00 Completed SARS-COV-2 COVID-19 VACCINE - (MODERNA) 2020-10-13 00:00:00 Completed SARS-COV-2 COVID-19 VACCINE - (MODERNA) 2020-10-13 00:00:00 Completed SARS-COV-2 COVID-19 VACCINE - (MODERNA) 2020-10-13 00:00:00 Completed SARS-COV-2 COVID-19 VACCINE - (MODERNA) 2020-10-13 00:00:00 Completed [facility] SARS-COV-2 COVID-19 VACCINE - (MODERNA) 2020-10-13 00:00:00 Completed SARS-COV-2 COVID-19 VACCINE - (MODERNA) 2020-10-13 00:00:00 Completed [facility] SARS-COV-2 COVID-19 VACCINE - (MODERNA) 2020-10-13 00:00:00 Completed [facility] SARS-COV-2 COVID-19 VACCINE - (MODERNA) 2020-10-13 00:00:00 Completed [facility] SARS-COV-2 COVID-19 VACCINE - (MODERNA) 2020-10-13 00:00:00 Completed [facility] SARS-COV-2 COVID-19 VACCINE - (MODERNA) 2020-10-13 00:00:00 Completed [facility] SARS-COV-2 COVID-19 VACCINE - (MODERNA) 2020-10-13 00:00:00 Completed [facility] SARS-COV-2 COVID-19 VACCINE - (MODERNA) 2020-10-13 00:00:00 Completed [facility] SARS-COV-2 COVID-19 VACCINE - (MODERNA) 2020-10-13 00:00:00 Completed [facility] SARS-COV-2 COVID-19 VACCINE - (MODERNA) 2020-10-13 00:00:00 Completed [facility] SARS-COV-2 COVID-19 VACCINE - (MODERNA) 2020-10-13 00:00:00 Completed [facility] SARS-COV-2 COVID-19 VACCINE - (MODERNA) 2020-10-13 00:00:00 Completed [facility] SARS-COV-2 COVID-19 VACCINE - (MODERNA) 2020-10-13 00:00:00 Completed [facility] SARS-COV-2 COVID-19 VACCINE - (MODERNA) 2020-10-13 00:00:00 Completed [facility] SARS-COV-2 COVID-19 VACCINE - (MODERNA) 2020-10-13 00:00:00 Completed [facility] SARS-COV-2 COVID-19 VACCINE - (MODERNA) 2020-10-13 00:00:00 Completed [facility] SARS-COV-2 COVID-19 VACCINE - (MODERNA) 2020-10-13 00:00:00 Completed [facility] SARS-COV-2 COVID-19 VACCINE - (MODERNA) 2020-10-13 00:00:00 Completed [facility] SARS-COV-2 COVID-19 VACCINE - (MODERNA) 2020-09-16 00:00:00 Completed [facility] SARS-COV-2 COVID-19 VACCINE - (MODERNA) 2020-09-16 00:00:00 Completed [facility] SARS-COV-2 COVID-19 VACCINE - (MODERNA) 2020-09-16 00:00:00 Completed [facility] SARS-COV-2 COVID-19 VACCINE - (MODERNA) 2020-09-16 00:00:00 Completed [facility] SARS-COV-2 COVID-19 VACCINE - (MODERNA) 2020-09-16 00:00:00 Completed [facility] SARS-COV-2 COVID-19 VACCINE - (MODERNA) 2020-09-16 00:00:00 Completed [facility] SARS-COV-2 COVID-19 VACCINE - (MODERNA) 2020-09-16 00:00:00 Completed [facility] SARS-COV-2 COVID-19 VACCINE - (MODERNA) 2020-09-16 00:00:00 Completed [facility] SARS-COV-2 COVID-19 VACCINE - (MODERNA) 2020-09-16 00:00:00 Completed SARS-COV-2 COVID-19 VACCINE - (MODERNA) 2020-09-16 00:00:00 Completed SARS-COV-2 COVID-19 VACCINE - (MODERNA) 2020-09-16 00:00:00 Completed SARS-COV-2 COVID-19 VACCINE - (MODERNA) 2020-09-16 00:00:00 Completed SARS-COV-2 COVID-19 VACCINE - (MODERNA) 2020-09-16 00:00:00 Completed SARS-COV-2 COVID-19 VACCINE - (MODERNA) 2020-09-16 00:00:00 Completed [facility] SARS-COV-2 COVID-19 VACCINE - (MODERNA) 2020-09-16 00:00:00 Completed SARS-COV-2 COVID-19 VACCINE - (MODERNA) 2020-09-16 00:00:00 Completed [facility] SARS-COV-2 COVID-19 VACCINE - (MODERNA) 2020-09-16 00:00:00 Completed [facility] SARS-COV-2 COVID-19 VACCINE - (MODERNA) 2020-09-16 00:00:00 Completed [facility] SARS-COV-2 COVID-19 VACCINE - (MODERNA) 2020-09-16 00:00:00 Completed [facility] SARS-COV-2 COVID-19 VACCINE - (MODERNA) 2020-09-16 00:00:00 Completed [facility] SARS-COV-2 COVID-19 VACCINE - (MODERNA) 2020-09-16 00:00:00 Completed [facility] SARS-COV-2 COVID-19 VACCINE - (MODERNA) 2020-09-16 [facility] [place] SARS-COV-2 COVID-19 VACCINE - (MODERNA) 2020-09-16 00:00:00 Completed [facility] [place] SARS-COV-2 COVID-19 VACCINE - (MODERNA) 2020-09-16 00:00:00 Completed [facility] [place] SARS-COV-2 COVID-19 VACCINE - (MODERNA) 2020-09-16 00:00:00 Completed [facility] [place] SARS-COV-2 COVID-19 VACCINE - (MODERNA) 2020-09-16 00:00:00 Completed [facility] [place] SARS-COV-2 COVID-19 VACCINE - (MODERNA) 2020-09-16 00:00:00 Completed [facility] [place] SARS-COV-2 COVID-19 VACCINE - (MODERNA) 2020-09-16 00:00:00 Completed [facility] [place] SARS-COV-2 COVID-19 VACCINE - (MODERNA) 2020-09-16 00:00:00 Completed [facility] [place] SARS-COV-2 COVID-19 VACCINE - (MODERNA) 2020-09-16 00:00:00 Completed [facility] [place] SARS-COV-2 COVID-19 VACCINE - (MODERNA) 2020-09-16 00:00:00 Completed [facility] [place] SARS-COV-2 COVID-19 VACCINE - (MODERNA) 2020-09-16 00:00:00 Completed [facility] [place] TDAP 2020-01-07 00:00:00 Completed TDAP 2020-01-07 00:00:00 Completed TDAP 2020-01-07 00:00:00 Completed TDAP 2020-01-07 00:00:00 Completed TDAP 2020-01-07 00:00:00 Completed TDAP 2020-01-07 00:00:00 Completed Influenza, adjuvanted, trivalent, PF (FLUAD) 2019-05-27 00:00:00 Completed Influenza, adjuvanted, trivalent, PF (FLUAD) 2019-05-27 00:00:00 Completed Influenza, adjuvanted, trivalent, PF (FLUAD) 2019-05-27 00:00:00 Completed Influenza, adjuvanted, trivalent, PF (FLUAD) 2019-05-27 00:00:00 Completed Influenza, adjuvanted, trivalent, PF (FLUAD) 2019-05-27 00:00:00 Completed Influenza, adjuvanted, trivalent, PF (FLUAD) 2019-05-27 00:00:00 Completed Pneumococcal 13 Conjugate, PCV13 (Prevnar 13) 2017-08-03 00:00:00 Completed [facility] [place] Pneumococcal 13 Conjugate, PCV13 (Prevnar 13) 2017-08-03 00:00:00 Completed [facility] [place] Pneumococcal 13 Conjugate, PCV13 (Prevnar 13) 2017-08-03 00:00:00 Completed [facility] [place] Pneumococcal 13 Conjugate, PCV13 (Prevnar 13) 2017-08-03 00:00:00 Completed [facility] [place] Pneumococcal 13 Conjugate, PCV13 (Prevnar 13) 2017-08-03 00:00:00 Completed [facility] [place] Pneumococcal 13 Conjugate, PCV13 (Prevnar 13) 2017-08-03 00:00:00 Completed [facility] [place] Pneumococcal 13 Conjugate, PCV13 (Prevnar 13) 2017-08-03 00:00:00 Completed [facility] [place] Pneumococcal 13 Conjugate, PCV13 (Prevnar 13) 2017-08-03 00:00:00 Completed [facility] [place] Pneumococcal 13 Conjugate, PCV13 (Prevnar 13) 2017-08-03 00:00:00 Completed [facility] [place] Pneumococcal 13 Conjugate, PCV13 (Prevnar 13) 2017-08-03 00:00:00 Completed [facility] [place] Pneumococcal 13 Conjugate, PCV13 (Prevnar 13) 2017-08-03 00:00:00 Completed [facility] [place] Pneumococcal 13 Conjugate, PCV13 (Prevnar 13) 2017-08-03 00:00:00 Completed [facility] [place] Pneumococcal 13 Conjugate, PCV13 (Prevnar 13) 2017-08-03 00:00:00 Completed [facility] [place] Pneumococcal 13 Conjugate, PCV13 (Prevnar 13) 2017-08-03 00:00:00 Completed [facility] [place] Pneumococcal 13 Conjugate, PCV13 (Prevnar 13) 2017-08-03 00:00:00 Completed [facility] [place] Pneumococcal 13 Conjugate, PCV13 (Prevnar 13) 2017-08-03 00:00:00 Completed [facility] [place] Pneumococcal 13 Conjugate, PCV13 (Prevnar 13) 2017-08-03 00:00:00 Completed [facility] [place] Pneumococcal 13 Conjugate, PCV13 (Prevnar 13) 2017-08-03 00:00:00 Completed [facility] [place] Pneumococcal 13 Conjugate, PCV13 (Prevnar 13) 2017-08-03 00:00:00 Completed [facility] [place] Pneumococcal 13 Conjugate, PCV13 (Prevnar 13) 2017-08-03 00:00:00 Completed [facility] [place] Pneumococcal 13 Conjugate, PCV13 (Prevnar 13) 2017-08-03 00:00:00 Completed [facility] [place] Pneumococcal 13 Conjugate, PCV13 (Prevnar 13) 2017-08-03 00:00:00 Completed [facility] [place] Pneumococcal 13 Conjugate, PCV13 (Prevnar 13) 2017-08-03 00:00:00 Completed [facility] [place] Pneumococcal 13 Conjugate, PCV13 (Prevnar 13) 2017-08-03 00:00:00 Completed [facility] [place] Pneumococcal 13 Conjugate, PCV13 (Prevnar 13) 2017-08-03 00:00:00 Completed [facility] [place] Pneumococcal 13 Conjugate, PCV13 (Prevnar 13) 2017-08-03 00:00:00 Completed [facility] [place] Pneumococcal 13 Conjugate, PCV13 (Prevnar 13) 2017-08-03 00:00:00 Completed [facility] [place] Pneumococcal 13 Conjugate, PCV13 (Prevnar 13) 2017-08-03 00:00:00 Completed [facility] [place] Pneumococcal 13 Conjugate, PCV13 (Prevnar 13) 2017-08-03 00:00:00 Completed [facility] [place] Pneumococcal 13 Conjugate, PCV13 (Prevnar 13) 2017-08-03 00:00:00 Completed [facility] [place] Pneumococcal 13 Conjugate, PCV13 (Prevnar 13) 2017-08-03 00:00:00 Completed [facility] [place] Pneumococcal 13 Conjugate, PCV13 (Prevnar 13) 2017-08-03 00:00:00 Completed [facility] [place] Pneumococcal 13 Conjugate, PCV13 (Prevnar 13) 2017-08-03 00:00:00 Completed [facility] [place] Pneumococcal 13 Conjugate, PCV13 (Prevnar 13) 2017-08-03 00:00:00 Completed [facility] [place] Influenza, High-Dose, Trivalent, PF (FLUZONE) 2017-06-07 00:00:00 Completed Influenza, High-Dose, Trivalent, PF (FLUZONE) 2017-06-07 00:00:00 Completed Influenza, High-Dose, Trivalent, PF (FLUZONE) 2017-06-07 00:00:00 Completed Influenza, High-Dose, Trivalent, PF (FLUZONE) 2017-06-07 00:00:00 Completed Influenza, High-Dose, Trivalent, PF (FLUZONE) 2017-06-07 00:00:00 Completed Influenza, High-Dose, Trivalent, PF (FLUZONE) 2017-06-07 00:00:00 Completed Pneumococcal 13 Conjugate, PCV13 (Prevnar 13) 2016-03-29 00:00:00 Completed [facility] [place] Pneumococcal 13 Conjugate, PCV13 (Prevnar 13) 2016-03-29 00:00:00 Completed [facility] [place] Pneumococcal 13 Conjugate, PCV13 (Prevnar 13) 2016-03-29 00:00:00 Completed [facility] [place] Pneumococcal 13 Conjugate, PCV13 (Prevnar 13) 2016-03-29 00:00:00 Completed [facility] [place] Pneumococcal 13 Conjugate, PCV13 (Prevnar 13) 2016-03-29 00:00:00 Completed [facility] [place] Pneumococcal 13 Conjugate, PCV13 (Prevnar 13) 2016-03-29 00:00:00 Completed [facility] [place] Influenza, split virus, trivalent, PF (AFLURIA/FLUARIX/FL ULAVAL/FLUZONE) 2014-06-26 00:00:00 Completed Influenza, split virus, trivalent, PF (AFLURIA/FLUARIX/FL ULAVAL/FLUZONE) 2014-06-26 00:00:00 Completed Influenza, split virus, trivalent, PF (AFLURIA/FLUARIX/FL ULAVAL/FLUZONE) 2014-06-26 00:00:00 Completed Influenza, split virus, trivalent, PF (AFLURIA/FLUARIX/FL ULAVAL/FLUZONE) 2014-06-26 00:00:00 Completed Influenza, split virus, trivalent, PF (AFLURIA/FLUARIX/FL ULAVAL/FLUZONE) 2014-06-26 00:00:00 Completed Influenza, split virus, trivalent, PF (AFLURIA/FLUARIX/FL ULAVAL/FLUZONE) 2014-06-26 00:00:00 Completed HEP B, Adult Dosage 2012-09-05 00:00:00 Completed HEP B, Adult Dosage 2012-09-05 00:00:00 Completed HEP B, Adult Dosage 2012-09-05 00:00:00 Completed HEP B, Adult Dosage 2012-09-05 00:00:00 Completed HEP B, Adult Dosage 2012-09-05 00:00:00 Completed HEP B, Adult Dosage 2012-09-05 00:00:00 Completed Pneumococcal Polysaccharide, PPSV23 (PNEUMOVAX) 2012-06-22 00:00:00 Completed Hep B, Adol or Pedi Dosage 2012-06-22 00:00:00 Completed HEPATITIS A 2012-06-22 00:00:00 Completed Pneumococcal Polysaccharide, PPSV23 (PNEUMOVAX) 2012-06-22 00:00:00 Completed Hep B, Adol or Pedi Dosage 2012-06-22 00:00:00 Completed HEPATITIS A 2012-06-22 00:00:00 Completed Pneumococcal Polysaccharide, PPSV23 (PNEUMOVAX) 2012-06-22 00:00:00 Completed Hep B, Adol or Pedi Dosage 2012-06-22 00:00:00 Completed HEPATITIS A 2012-06-22 00:00:00 Completed Pneumococcal Polysaccharide, PPSV23 (PNEUMOVAX) 2012-06-22 00:00:00 Completed Hep B, Adol or Pedi Dosage 2012-06-22 00:00:00 Completed HEPATITIS A 2012-06-22 00:00:00 Completed Pneumococcal Polysaccharide, PPSV23 (PNEUMOVAX) 2012-06-22 00:00:00 Completed Hep B, Adol or Pedi Dosage 2012-06-22 00:00:00 Completed HEPATITIS A 2012-06-22 00:00:00 Completed Pneumococcal Polysaccharide, PPSV23 (PNEUMOVAX) 2012-06-22 00:00:00 Completed Hep B, Adol or Pedi Dosage 2012-06-22 00:00:00 Completed HEPATITIS A 2012-06-22 00:00:00 Completed TDAP 2008-07-08 00:00:00 Completed Hep B, Adol or Pedi Dosage 2008-07-08 00:00:00 Completed HEPATITIS A 2008-07-08 00:00:00 Completed TDAP 2008-07-08 00:00:00 Completed Hep B, Adol or Pedi Dosage 2008-07-08 00:00:00 Completed HEPATITIS A 2008-07-08 00:00:00 Completed TDAP 2008-07-08 00:00:00 Completed Hep B, Adol or Pedi Dosage 2008-07-08 00:00:00 Completed HEPATITIS A 2008-07-08 00:00:00 Completed TDAP 2008-07-08 00:00:00 Completed Hep B, Adol or Pedi Dosage 2008-07-08 00:00:00 Completed HEPATITIS A 2008-07-08 00:00:00 Completed TDAP 2008-07-08 00:00:00 Completed Hep B, Adol or Pedi Dosage 2008-07-08 00:00:00 Completed HEPATITIS A 2008-07-08 00:00:00 Completed TDAP 2008-07-08 00:00:00 Completed Hep B, Adol or Pedi Dosage 2008-07-08 00:00:00 Completed HEPATITIS A 2008-07-08 00:00:00 Completed Pneumococcal 13 Conjugate, PCV13 (Prevnar 13) Unknown Completed [facility] [place] Influenza High Dose Unknown Completed [facility] [place] SARS-COV-2 COVID-19 VACCINE - (MODERNA) Unknown Completed [facility] SARS-COV-2 COVID-19 MODERNA 0.5ML BOOSTER VACCINE Unknown Completed [facility] Pneumococcal 13 Conjugate, PCV13 (Prevnar 13) Unknown Completed [facility] [place] Influenza High Dose Unknown Completed [facility] [place] SARS-COV-2 COVID-19 VACCINE - (MODERNA) Unknown Completed [facility] SARS-COV-2 COVID-19 MODERNA 0.5ML BOOSTER VACCINE Unknown Completed [facility] Pneumococcal 13 Conjugate, PCV13 (Prevnar 13) Unknown Completed [facility] [place] Influenza High Dose Unknown Completed [facility] [place] SARS-COV-2 COVID-19 VACCINE - (MODERNA) Unknown Completed [facility] SARS-COV-2 COVID-19 MODERNA 0.5ML BOOSTER VACCINE Unknown Completed [facility] Pneumococcal 13 Conjugate, PCV13 (Prevnar 13) Unknown Completed [facility] [place] Influenza High Dose Unknown Completed [facility] [place] SARS-COV-2 COVID-19 VACCINE - (MODERNA) Unknown Completed [facility] SARS-COV-2 COVID-19 MODERNA 0.5ML BOOSTER VACCINE Unknown Completed [facility] Pneumococcal 13 Conjugate, PCV13 (Prevnar 13) Unknown Completed [facility] [place] Influenza High Dose Unknown Completed [facility] [place] SARS-COV-2 COVID-19 VACCINE - (MODERNA) Unknown Completed [facility] SARS-COV-2 COVID-19 MODERNA 0.5ML BOOSTER VACCINE Unknown Completed [facility] Pneumococcal 13 Conjugate, PCV13 (Prevnar 13) Unknown Completed [facility] [place] Influenza High Dose Unknown Completed [facility] [place] SARS-COV-2 COVID-19 VACCINE - (MODERNA) Unknown Completed [facility] SARS-COV-2 COVID-19 MODERNA 0.5ML BOOSTER VACCINE Unknown Completed [facility] Pneumococcal 13 Conjugate, PCV13 (Prevnar 13) Unknown Completed [facility] [place] Influenza High Dose Unknown Completed [facility] [place] SARS-COV-2 COVID-19 VACCINE - (MODERNA) Unknown Completed [facility] SARS-COV-2 COVID-19 MODERNA 0.5ML BOOSTER VACCINE Unknown Completed [facility] Pneumococcal 13 Conjugate, PCV13 (Prevnar 13) Unknown Completed [facility] [place] Influenza High Dose Unknown Completed [facility] [place] SARS-COV-2 COVID-19 VACCINE - (MODERNA) Unknown Completed [facility] SARS-COV-2 COVID-19 MODERNA 0.5ML BOOSTER VACCINE Unknown Completed [facility] Pneumococcal 13 Conjugate, PCV13 (Prevnar 13) Unknown Completed [facility] [place] Influenza High Dose Unknown Completed [facility] [place] SARS-COV-2 COVID-19 VACCINE - (MODERNA) Unknown Completed [facility] SARS-COV-2 COVID-19 MODERNA 0.5ML BOOSTER VACCINE Unknown Completed [facility] Pneumococcal 13 Conjugate, PCV13 (Prevnar 13) Unknown Completed [facility] [place] Influenza High Dose Unknown Completed [facility] [place] SARS-COV-2 COVID-19 VACCINE - (MODERNA) Unknown Completed [facility] SARS-COV-2 COVID-19 MODERNA 0.5ML BOOSTER VACCINE Unknown Completed [facility] Pneumococcal 13 Conjugate, PCV13 (Prevnar 13) Unknown Completed [facility] [place] Influenza High Dose Unknown Completed [facility] [place] SARS-COV-2 COVID-19 VACCINE - (MODERNA) Unknown Completed [facility] SARS-COV-2 COVID-19 MODERNA 0.5ML BOOSTER VACCINE Unknown Completed [facility] Pneumococcal 13 Conjugate, PCV13 (Prevnar 13) Unknown Completed [facility] [place] Influenza High Dose Unknown Completed [facility] [place] SARS-COV-2 COVID-19 VACCINE - (MODERNA) Unknown Completed [facility] SARS-COV-2 COVID-19 MODERNA 0.5ML BOOSTER VACCINE Unknown Completed [facility] Pneumococcal 13 Conjugate, PCV13 (Prevnar 13) Unknown Completed [facility] [place] Influenza High Dose Unknown Completed [facility] [place] SARS-COV-2 COVID-19 VACCINE - (MODERNA) Unknown [facility] MODERNA 0.5ML BOOSTER VACCINE Unknown Completed [facility] Pneumococcal 13 Conjugate, PCV13 (Prevnar 13) Unknown Completed [facility] [place] Influenza High Dose Unknown Completed [facility] [place] SARS-COV-2 COVID-19 MODERNA 0.5ML BOOSTER VACCINE Unknown Completed [facility] SARS-COV-2 COVID-19 VACCINE - (MODERNA) Unknown Completed [facility] Pneumococcal 13 Conjugate, PCV13 (Prevnar 13) Unknown Completed [facility] [place] Influenza High Dose Unknown Completed [facility] [place] SARS-COV-2 COVID-19 VACCINE - (MODERNA) Unknown Completed [facility] SARS-COV-2 COVID-19 MODERNA 0.5ML BOOSTER VACCINE Unknown Completed [facility] Pneumococcal 13 Conjugate, PCV13 (Prevnar 13) Unknown Completed [facility] [place] Influenza High Dose Unknown Completed [facility] [place] SARS-COV-2 COVID-19 VACCINE - (MODERNA) Unknown Completed [facility] SARS-COV-2 COVID-19 MODERNA 0.5ML BOOSTER VACCINE Unknown Completed [facility] Pneumococcal 13 Conjugate, PCV13 (Prevnar 13) Unknown Completed [facility] [place] Influenza High Dose Unknown Completed [facility] [place] SARS-COV-2 COVID-19 VACCINE - (MODERNA) Unknown Completed [facility] SARS-COV-2 COVID-19 MODERNA 0.5ML BOOSTER VACCINE Unknown Completed [facility] SARS-COV-2 COVID-19 MODERNA 0.5ML BOOSTER VACCINE Unknown Completed [facility] TDAP Unknown Completed [facility] [place] Pneumococcal Polysaccharide, PPSV23 (PNEUMOVAX) Unknown Completed [facility] Influenza, Trivalent, Adjuvanted Unknown Completed [facility] [place] HEP B, Adult Dosage Unknown Completed [facility] [place] Flu Trivalent Unknown Completed [facility] SARS-COV-2 COVID-19 MODERNA 0.5ML BOOSTER VACCINE Unknown Completed [facility] TDAP Unknown Completed [facility] [place] Pneumococcal Polysaccharide, PPSV23 (PNEUMOVAX) Unknown Completed [facility] Influenza, Trivalent, Adjuvanted Unknown Completed [facility] [place] HEP B, Adult Dosage Unknown Completed [facility] [place] Flu Trivalent Unknown Completed [facility] Pneumococcal 13 Conjugate, PCV13 (Prevnar 13) Unknown Completed [facility] [place] Influenza High Dose Unknown Completed [facility] [place] SARS-COV-2 COVID-19 VACCINE - (MODERNA) Unknown Completed [facility] Influenza High Dose Quad Unknown Completed [facility] [place] Hep B, Adol or Pedi Dosage Unknown Completed [facility] [place] HEPATITIS A Unknown Completed [facility] Pneumococcal 13 Conjugate, PCV13 (Prevnar 13) Unknown Completed [facility] [place] Influenza High Dose Unknown Completed [facility] [place] SARS-COV-2 COVID-19 VACCINE - (MODERNA) Unknown Completed [facility] SARS-COV-2 COVID-19 MODERNA 0.5ML BOOSTER VACCINE Unknown Completed [facility] TDAP Unknown Completed [facility] [place] Pneumococcal Polysaccharide, PPSV23 (PNEUMOVAX) Unknown Completed [facility] Influenza, Trivalent, Adjuvanted Unknown Completed [facility] [place] Influenza High Dose Quad Unknown Completed [facility] [place] Hep B, Adol or Pedi Dosage Unknown Completed [facility] [place] HEP B, Adult Dosage Unknown Completed [facility] [place] HEPATITIS A Unknown Completed [facility] Flu Trivalent Unknown [facility] Pneumococcal 13 Conjugate, PCV13 (Prevnar 13) Unknown Completed [facility] [place] Influenza High Dose Unknown Completed [facility] [place] SARS-COV-2 COVID-19 VACCINE - (MODERNA) Unknown Completed [facility] Influenza High Dose Quad Unknown Completed [facility] [place] Hep B, Adol or Pedi Dosage Unknown Completed [facility] [place] HEPATITIS A Unknown Completed [facility] Pneumococcal 13 Conjugate, PCV13 (Prevnar 13) Unknown Completed [facility] [place] Influenza High Dose Unknown Completed [facility] [place] SARS-COV-2 COVID-19 VACCINE - (MODERNA) Unknown Completed [facility] SARS-COV-2 COVID-19 MODERNA 0.5ML BOOSTER VACCINE Unknown Completed [facility] TDAP Unknown Completed [facility] [place] Pneumococcal Polysaccharide, PPSV23 (PNEUMOVAX) Unknown Completed [facility] Influenza, Trivalent, Adjuvanted Unknown Completed [facility] [place] Influenza High Dose Quad Unknown Completed [facility] [place] Hep B, Adol or Pedi Dosage Unknown Completed [facility] [place] HEP B, Adult Dosage Unknown Completed [facility] [place] HEPATITIS A Unknown Completed [facility] Flu Trivalent Unknown Completed [facility] Pneumococcal 13 Conjugate, PCV13 (Prevnar 13) Unknown Completed [facility] [place] Influenza High Dose Unknown Completed [facility] [place] SARS-COV-2 COVID-19 VACCINE - (MODERNA) Unknown [facility]-19 MODERNA 0.5ML BOOSTER VACCINE Unknown Completed [facility] TDAP Unknown Completed [facility] [place] Pneumococcal Polysaccharide, PPSV23 (PNEUMOVAX) Unknown Completed [facility] Influenza, Trivalent, Adjuvanted Unknown Completed [facility] [place] Influenza High Dose Quad Unknown Completed [facility] [place] Hep B, Adol or Pedi Dosage Unknown Completed [facility] [place] HEP B, Adult Dosage Unknown Completed [facility] [place] HEPATITIS A Unknown [facility] Com[facility] Pneumococcal 13 Conjugate, PCV13 (Prevnar 13) Unknown Completed [facility] [place] Influenza High Dose Unknown Completed [facility] [place] SARS-COV-2 COVID-19 VACCINE - (MODERNA) Unknown Completed [facility] SARS-COV-2 COVID-19 MODERNA 0.5ML BOOSTER VACCINE Unknown Completed [facility] TDAP Unknown Completed [facility] [place] Pneumococcal Polysaccharide, PPSV23 (PNEUMOVAX) Unknown Completed [facility] Influenza, Trivalent, Adjuvanted Unknown Completed [facility] [place] Influenza High Dose Quad Unknown Completed [facility] [place] Hep B, Adol or Pedi Dosage Unknown Completed [facility] [place] HEP B, Adult Dosage Unknown Completed [facility] [place] HEPATITIS A Unknown Completed [facility] Flu Trivalent Unknown Completed [facility] Pneumococcal 13 Conjugate, PCV13 (Prevnar 13) Unknown Completed [facility] [place] Influenza High Dose Unknown Completed [facility] [place] SARS-COV-2 COVID-19 VACCINE - (MODERNA) Unknown Completed [facility] SARS-COV-2 COVID-19 MODERNA 0.5ML BOOSTER VACCINE Unknown Completed [facility] TDAP Unknown Completed [facility] [place] Pneumococcal Polysaccharide, PPSV23 (PNEUMOVAX) Unknown Completed [facility] Influenza, Trivalent, Adjuvanted Unknown Completed [facility] [place] Influenza High Dose Quad Unknown Completed [facility] [place] Hep B, Adol or Pedi Dosage Unknown Completed [facility] [place] HEP B, Adult Dosage Unknown Completed [facility] [place] HEPATITIS A Unknown Completed [facility] Flu Trivalent Unknown Completed [facility] Pneumococcal 13 Conjugate, PCV13 (Prevnar 13) Unknown Completed [facility] [place] Influenza High Dose Unknown Completed [facility] [place] SARS-COV-2 COVID-19 VACCINE - (MODERNA) Unknown Completed [facility] SARS-COV-2 COVID-19 MODERNA 0.5ML BOOSTER VACCINE Unknown Completed [facility] TDAP Unknown Completed [facility] [place] Pneumococcal Polysaccharide, PPSV23 (PNEUMOVAX) Unknown Completed [facility] Influenza, Trivalent, Adjuvanted Unknown Completed [facility] [place] Influenza High Dose Quad Unknown Completed [facility] [place] Hep B, Adol or Pedi Dosage Unknown Completed [facility] [place] HEP B, Adult Dosage Unknown Completed [facility] [place] HEPATITIS A Unknown Completed [facility] Flu Trivalent Unknown Completed [facility] SARS-COV-2 COVID-19 MODERNA 0.5ML BOOSTER VACCINE Unknown Completed [facility] TDAP Unknown Completed [facility] [place] Pneumococcal Polysaccharide, PPSV23 (PNEUMOVAX) Unknown Completed [facility] Influenza, Trivalent, Adjuvanted Unknown Completed [facility] [place] HEP B, Adult Dosage Unknown Completed [facility] [place] Flu Trivalent Unknown Completed [facility] Pneumococcal 13 Conjugate, PCV13 (Prevnar 13) Unknown Completed [facility] [place] Influenza High Dose Unknown Completed [facility] [place] SARS-COV-2 COVID-19 VACCINE - (MODERNA) Unknown Completed [facility] Influenza High Dose Quad Unknown Completed [facility] [place] Hep B, Adol or Pedi Dosage Unknown Completed [facility] [place] HEPATITIS A Unknown Completed [facility] Pneumococcal 13 Conjugate, PCV13 (Prevnar 13) Unknown Completed [facility] [place] Influenza High Dose Unknown Completed [facility] [place] SARS-COV-2 COVID-19 VACCINE - (MODERNA) Unknown [facility] COVID-19 MODERNA 0.5ML BOOSTER VACCINE Unknown Completed [facility] TDAP Unknown Completed [facility] [place] Pneumococcal Polysaccharide, PPSV23 (PNEUMOVAX) Unknown Completed [facility] Influenza, Trivalent, Adjuvanted Unknown Completed [facility] [place] Influenza High Dose Quad Unknown Completed [facility] [place] Hep B, Adol or Pedi Dosage Unknown Completed [facility] [place] HEP B, Adult Dosage Unknown Completed [facility] [place] HEPATITIS A Unknown Completed [facility] Flu Trivalent Unknown Completed [facility] Pneumococcal 13 Conjugate, PCV13 (Prevnar 13) Unknown Completed [facility] [place] Influenza High Dose Unknown Completed [facility] SARS-COV-2 COVID-19 VACCINE - (MODERNA) Unknown Completed [facility] SARS-COV-2 COVID-19 MODERNA 0.5ML BOOSTER VACCINE Unknown Completed [facility] TDAP Unknown Completed [facility] Pneumococcal Polysaccharide, PPSV23 (PNEUMOVAX) Unknown Completed [facility] Influenza, Trivalent, Adjuvanted Unknown Completed [facility] Influenza High Dose Quad Unknown Completed [facility] Hep B, Adol or Pedi Dosage Unknown Completed [facility] HEP B, Adult Dosage Unknown Completed [facility] HEPATITIS A Unknown Completed [facility] Flu Trivalent Unknown Completed [facility] Pneumococcal 13 Conjugate, PCV13 (Prevnar 13) Unknown Completed [facility] Influenza High Dose Unknown Completed [facility] SARS-COV-2 COVID-19 VACCINE - (MODERNA) Unknown Completed [facility] SARS-COV-2 COVID-19 MODERNA 0.5ML BOOSTER VACCINE Unknown Completed [facility] TDAP Unknown Completed [facility] Pneumococcal Polysaccharide, PPSV23 (PNEUMOVAX) Unknown Completed [facility] Influenza, Trivalent, Adjuvanted Unknown Completed [facility] Influenza High Dose Quad Unknown Completed [facility] Hep B, Adol or Pedi Dosage Unknown Completed [facility] HEP B, Adult Dosage Unknown Completed [facility] HEPATITIS A Unknown Completed [facility] Flu Trivalent Unknown Completed [facility] Pneumococcal 13 Conjugate, PCV13 (Prevnar 13) Unknown Completed [facility] Influenza High Dose Unknown Completed [facility] SARS-COV-2 COVID-19 VACCINE - (MODERNA) Unknown Completed [facility] SARS-COV-2 COVID-19 MODERNA 0.5ML BOOSTER VACCINE Unknown Completed [facility] TDAP Unknown Completed [facility] Pneumococcal Polysaccharide, PPSV23 (PNEUMOVAX) Unknown Completed [facility] Influenza, Trivalent, Adjuvanted Unknown Completed [facility] Influenza High Dose Quad Unknown Completed [facility] Hep B, Adol or Pedi Dosage Unknown Completed [facility] HEP B, Adult Dosage Unknown Completed [facility] HEPATITIS A Unknown Completed [facility] Flu Trivalent Unknown Completed [facility] Pneumococcal 13 Conjugate, PCV13 (Prevnar 13) Unknown Completed [facility] Influenza High Dose Unknown Completed [facility] SARS-COV-2 COVID-19 VACCINE - (MODERNA) Unknown Completed [facility] SARS-COV-2 COVID-19 MODERNA 0.5ML BOOSTER VACCINE Unknown Completed [facility] TDAP Unknown Completed [facility] Pneumococcal Polysaccharide, PPSV23 (PNEUMOVAX) Unknown Completed [facility] Influenza, Trivalent, Adjuvanted Unknown Completed [facility] Influenza High Dose Quad Unknown Completed [facility] Hep B, Adol or Pedi Dosage Unknown Completed [facility] HEP B, Adult Dosage Unknown Completed [facility] HEPATITIS A Unknown Completed [facility] Flu Trivalent Unknown Completed [facility] Pneumococcal 13 Conjugate, PCV13 (Prevnar 13) Unknown Completed [facility] Influenza High Dose Unknown Completed [facility] SARS-COV-2 COVID-19 VACCINE - (MODERNA) Unknown Completed [facility] SARS-COV-2 COVID-19 MODERNA 0.5ML BOOSTER VACCINE Unknown Completed [facility] TDAP Unknown Completed [facility] Pneumococcal Polysaccharide, PPSV23 (PNEUMOVAX) Unknown Completed [facility] Influenza, Trivalent, Adjuvanted Unknown Completed [facility] Influenza High Dose Quad Unknown Completed [facility] Hep B, Adol or Pedi Dosage Unknown Completed [facility] HEP B, Adult Dosage Unknown Completed [facility] HEPATITIS A Unknown Completed [facility] Flu Trivalent Unknown Completed [facility] Pneumococcal 13 Conjugate, PCV13 (Prevnar 13) Unknown Completed [facility] Influenza High Dose Unknown Completed [facility] SARS-COV-2 COVID-19 VACCINE - (MODERNA) Unknown Completed [facility] SARS-COV-2 COVID-19 MODERNA 0.5ML BOOSTER VACCINE Unknown Completed [facility] TDAP Unknown Completed [facility] Pneumococcal Polysaccharide, PPSV23 (PNEUMOVAX) Unknown Completed [facility] Influenza, Trivalent, Adjuvanted Unknown Completed [facility] Influenza High Dose Quad Unknown Completed [facility] Hep B, Adol or Pedi Dosage Unknown Completed [facility] HEP B, Adult Dosage Unknown Completed [facility] HEPATITIS A Unknown Completed [facility] Flu Trivalent Unknown Completed [facility] SARS-COV-2 COVID-19 MODERNA 0.5ML BOOSTER VACCINE Unknown Completed [facility] Pneumococcal Polysaccharide, PPSV23 (PNEUMOVAX) Unknown Completed [facility] Influenza, Trivalent, Adjuvanted Unknown Completed [facility] HEP B, Adult Dosage Unknown Completed [facility] Flu Trivalent Unknown Completed [facility] Influenza Virus Vaccine,quad Im,preserve Free 65+ (FLUAD) Unknown Completed [facility] Pneumococcal 13 Conjugate, PCV13 (Prevnar 13) Unknown Completed [facility] Influenza High Dose Unknown Completed [facility] SARS-COV-2 COVID-19 VACCINE - (MODERNA) Unknown Completed [facility] TDAP Unknown Completed [facility] Influenza High Dose Quad Unknown Completed [facility] Hep B, Adol or Pedi Dosage Unknown Completed [facility] HEPATITIS A Unknown Completed [facility] Zoster Vaccine Recombinant Unknown Completed [facility] Pneumococcal 13 Conjugate, PCV13 (Prevnar 13) Unknown Completed [facility] Influenza High Dose Unknown Completed [facility] SARS-COV-2 COVID-19 VACCINE - (MODERNA) Unknown Completed [facility] SARS-COV-2 COVID-19 MODERNA 0.5ML BOOSTER VACCINE Unknown Completed [facility] TDAP Unknown Completed [facility] Pneumococcal Polysaccharide, PPSV23 (PNEUMOVAX) Unknown Completed [facility] Influenza, Trivalent, Adjuvanted Unknown Completed [facility] Influenza High Dose Quad Unknown Completed [facility] Hep B, Adol or Pedi Dosage Unknown Completed [facility] HEP B, Adult Dosage Unknown Completed [facility] HEPATITIS A Unknown Completed [facility] Flu Trivalent Unknown Completed [facility] Influenza Virus Vaccine,quad Im,preserve Free 65+ (FLUAD) Unknown Completed [facility] Zoster Vaccine Recombinant Unknown Completed [facility] Pneumococcal 13 Conjugate, PCV13 (Prevnar 13) Unknown Completed [facility] Influenza High Dose Unknown Completed [facility] SARS-COV-2 COVID-19 VACCINE - (MODERNA) Unknown Completed [facility] SARS-COV-2 COVID-19 MODERNA 0.5ML BOOSTER VACCINE Unknown Completed [facility] TDAP Unknown Completed [facility] Pneumococcal Polysaccharide, PPSV23 (PNEUMOVAX) Unknown Completed [facility] Influenza, Trivalent, Adjuvanted Unknown Completed [facility] Influenza High Dose Quad Unknown Completed [facility] Hep B, Adol or Pedi Dosage Unknown Completed [facility] HEP B, Adult Dosage Unknown Completed [facility] HEPATITIS A Unknown Completed [facility] Flu Trivalent Unknown Completed [facility] Influenza Virus Vaccine,quad Im,preserve Free 65+ (FLUAD) Unknown Completed [facility] Zoster Vaccine Recombinant Unknown Completed [facility] Pneumococcal 13 Conjugate, PCV13 (Prevnar 13) Unknown Completed [facility] Influenza High Dose Unknown Completed [facility] SARS-COV-2 COVID-19 VACCINE - (MODERNA) Unknown Completed [facility] SARS-COV-2 COVID-19 MODERNA 0.5ML BOOSTER VACCINE Unknown Completed [facility] TDAP Unknown Completed [facility] Pneumococcal Polysaccharide, PPSV23 (PNEUMOVAX) Unknown Completed [facility] Influenza, Trivalent, Adjuvanted Unknown Completed [facility] Influenza High Dose Quad Unknown Completed [facility] Hep B, Adol or Pedi Dosage Unknown Completed [facility] HEP B, Adult Dosage Unknown Completed [facility] HEPATITIS A Unknown Completed [facility] Flu Trivalent Unknown Completed [facility] Influenza Virus Vaccine,quad Im,preserve Free 65+ (FLUAD) Unknown Completed [facility] Zoster Vaccine Recombinant Unknown Completed [facility] Pneumococcal 13 Conjugate, PCV13 (Prevnar 13) Unknown Completed [facility] Influenza High Dose Unknown Completed [facility] SARS-COV-2 COVID-19 VACCINE - (MODERNA) Unknown Completed [facility] SARS-COV-2 COVID-19 MODERNA 0.5ML BOOSTER VACCINE Unknown Completed [facility] TDAP Unknown Completed [facility] Pneumococcal Polysaccharide, PPSV23 (PNEUMOVAX) Unknown Completed [facility] Influenza, Trivalent, Adjuvanted Unknown Completed [facility] Influenza High Dose Quad Unknown Completed [facility] Hep B, Adol or Pedi Dosage Unknown Completed [facility] HEP B, Adult Dosage Unknown Completed [facility] HEPATITIS A Unknown Completed [facility] Flu Trivalent Unknown Completed [facility] Influenza Virus Vaccine,quad Im,preserve Free 65+ (FLUAD) Unknown Completed [facility] Zoster Vaccine Recombinant Unknown Completed [facility] Pneumococcal 13 Conjugate, PCV13 (Prevnar 13) Unknown Completed [facility] Influenza High Dose Unknown Completed [facility] SARS-COV-2 COVID-19 VACCINE - (MODERNA) Unknown Completed [facility] SARS-COV-2 COVID-19 MODERNA 0.5ML BOOSTER VACCINE Unknown Completed [facility] TDAP Unknown Completed [facility] Pneumococcal Polysaccharide, PPSV23 (PNEUMOVAX) Unknown Completed [facility] Influenza, Trivalent, Adjuvanted Unknown Completed [facility] Influenza High Dose Quad Unknown Completed [facility] Hep B, Adol or Pedi Dosage Unknown Completed [facility] HEP B, Adult Dosage Unknown Completed [facility] HEPATITIS A Unknown Completed [facility] Flu Trivalent Unknown Completed [facility] Influenza Virus Vaccine,quad Im,preserve Free 65+ (FLUAD) Unknown Completed [facility] Zoster Vaccine Recombinant Unknown Completed [facility] Pneumococcal 13 Conjugate, PCV13 (Prevnar 13) Unknown Completed [facility] Influenza High Dose Unknown Completed [facility] SARS-COV-2 COVID-19 VACCINE - (MODERNA) Unknown Completed [facility] SARS-COV-2 COVID-19 MODERNA 0.5ML BOOSTER VACCINE Unknown Completed [facility] TDAP Unknown Completed [facility] Pneumococcal Polysaccharide, PPSV23 (PNEUMOVAX) Unknown Completed [facility] Influenza, Trivalent, Adjuvanted Unknown Completed [facility] Influenza High Dose Quad Unknown Completed [facility] Hep B, Adol or Pedi Dosage Unknown Completed [facility] HEP B, Adult Dosage Unknown Completed [facility] HEPATITIS A Unknown [facility] Influenza Virus Vaccine,quad Im,preserve Free 65+ (FLUAD) Unknown Completed [facility] Zoster Vaccine Recombinant Unknown Completed [facility] Pneumococcal 13 Conjugate, PCV13 (Prevnar 13) Unknown Completed [facility] Influenza High Dose Unknown Completed [facility] SARS-COV-2 COVID-19 VACCINE - (MODERNA) Unknown Completed [facility] SARS-COV-2 COVID-19 MODERNA 0.5ML BOOSTER VACCINE Unknown Completed [facility] TDAP Unknown Completed [facility] Pneumococcal Polysaccharide, PPSV23 (PNEUMOVAX) Unknown Completed [facility] Influenza, Trivalent, Adjuvanted Unknown Completed [facility] Influenza High Dose Quad Unknown Completed [facility] Hep B, Adol or Pedi Dosage Unknown Completed [facility] HEP B, Adult Dosage Unknown Completed [facility] HEPATITIS A Unknown Completed [facility] Flu Trivalent Unknown Completed [facility] Influenza Virus Vaccine,quad Im,preserve Free 65+ (FLUAD) Unknown Completed [facility] Zoster Vaccine Recombinant Unknown Completed [facility] Pneumococcal 13 Conjugate, PCV13 (Prevnar 13) Unknown Completed [facility] Influenza High Dose Unknown Completed [facility] SARS-COV-2 COVID-19 VACCINE - (MODERNA) Unknown Completed [facility] SARS-COV-2 COVID-19 MODERNA 0.5ML BOOSTER VACCINE Unknown Completed [facility] TDAP Unknown Completed [facility] Pneumococcal Polysaccharide, PPSV23 (PNEUMOVAX) Unknown Completed [facility] Influenza, Trivalent, Adjuvanted Unknown Completed [facility] Influenza High Dose Quad Unknown Completed [facility] Hep B, Adol or Pedi Dosage Unknown Completed [facility] HEP B, Adult Dosage Unknown Completed [facility] HEPATITIS A Unknown Completed [facility] Flu Trivalent Unknown Completed [facility] Influenza Virus Vaccine,quad Im,preserve Free 65+ (FLUAD) Unknown Completed [facility] Zoster Vaccine Recombinant Unknown Completed [facility] Pneumococcal 13 Conjugate, PCV13 (Prevnar 13) Unknown Completed [facility] Influenza High Dose Unknown Completed [facility] SARS-COV-2 COVID-19 VACCINE - (MODERNA) Unknown Completed [facility] SARS-COV-2 COVID-19 MODERNA 0.5ML BOOSTER VACCINE Unknown Completed [facility] TDAP Unknown Completed [facility] Pneumococcal Polysaccharide, PPSV23 (PNEUMOVAX) Unknown Completed [facility] Influenza, Trivalent, Adjuvanted Unknown Completed [facility] Influenza High Dose Quad Unknown Completed [facility] Hep B, Adol or Pedi Dosage Unknown Completed [facility] HEP B, Adult Dosage Unknown Completed [facility] HEPATITIS A Unknown Completed [facility] Flu Trivalent Unknown Completed [facility] Influenza Virus Vaccine,quad Im,preserve Free 65+ (FLUAD) Unknown Completed [facility] Zoster Vaccine Recombinant Unknown Completed [facility] Pneumococcal 13 Conjugate, PCV13 (Prevnar 13) Unknown Completed [facility] Influenza High Dose Unknown Completed [facility] SARS-COV-2 COVID-19 VACCINE - (MODERNA) Unknown Completed [facility] SARS-COV-2 COVID-19 MODERNA 0.5ML BOOSTER VACCINE Unknown Completed [facility] TDAP Unknown Completed [facility] Pneumococcal Polysaccharide, PPSV23 (PNEUMOVAX) Unknown Completed [facility] Influenza, Trivalent, Adjuvanted Unknown Completed [facility] Influenza High Dose Quad Unknown Completed [facility] Hep B, Adol or Pedi Dosage Unknown Completed [facility] HEP B, Adult Dosage Unknown Completed [facility] HEPATITIS A Unknown Completed [facility] Flu Trivalent Unknown Completed [facility] Influenza Virus Vaccine,quad Im,preserve Free 65+ (FLUAD) Unknown Completed [facility] Zoster Vaccine Recombinant Unknown Completed [facility] Pneumococcal 13 Conjugate, PCV13 (Prevnar 13) Unknown Completed [facility] Influenza High Dose Unknown Completed [facility] SARS-COV-2 COVID-19 VACCINE - (MODERNA) Unknown Completed [facility] SARS-COV-2 COVID-19 MODERNA 0.5ML BOOSTER VACCINE Unknown Completed [facility] TDAP Unknown Completed [facility] Pneumococcal Polysaccharide, PPSV23 (PNEUMOVAX) Unknown Completed [facility] Influenza, Trivalent, Adjuvanted Unknown Completed [facility] Influenza High Dose Quad Unknown Completed [facility] Hep B, Adol or Pedi Dosage Unknown Completed [facility] HEP B, Adult Dosage Unknown Completed [facility] HEPATITIS A Unknown Completed [facility] Flu Trivalent Unknown Completed [facility] Influenza Virus Vaccine,quad Im,preserve Free 65+ (FLUAD) Unknown Completed [facility] Zoster Vaccine Recombinant Unknown Completed [facility] Pneumococcal 13 Conjugate, PCV13 (Prevnar 13) Unknown Completed [facility] Influenza High Dose Unknown Completed [facility] SARS-COV-2 COVID-19 VACCINE - (MODERNA) Unknown Completed [facility] SARS-COV-2 COVID-19 MODERNA 0.5ML BOOSTER VACCINE Unknown Completed [facility] TDAP Unknown Completed [facility] Pneumococcal Polysaccharide, PPSV23 (PNEUMOVAX) Unknown Completed [facility] Influenza, Trivalent, Adjuvanted Unknown Completed [facility] Influenza High Dose Quad Unknown Completed [facility] Hep B, Adol or Pedi Dosage Unknown Completed [facility] HEP B, Adult Dosage Unknown Completed [facility] HEPATITIS A Unknown Completed [facility] Flu Trivalent Unknown Completed [facility] Influenza Virus Vaccine,quad Im,preserve Free 65+ (FLUAD) Unknown Completed [facility] Zoster Vaccine Recombinant Unknown Completed [facility] Pneumococcal 13 Conjugate, PCV13 (Prevnar 13) Unknown Completed [facility] Influenza High Dose Unknown Completed [facility] SARS-COV-2 COVID-19 VACCINE - (MODERNA) Unknown Completed [facility] SARS-COV-2 COVID-19 MODERNA 0.5ML BOOSTER VACCINE Unknown Completed [facility] TDAP Unknown Completed [facility] Pneumococcal Polysaccharide, PPSV23 (PNEUMOVAX) Unknown Completed [facility] Influenza, Trivalent, Adjuvanted Unknown Completed [facility] Influenza High Dose Quad Unknown Completed [facility] Hep B, Adol or Pedi Dosage Unknown Completed [facility] HEP B, Adult Dosage Unknown Completed [facility] HEPATITIS A Unknown Completed [facility] Flu Trivalent Unknown Completed [facility] Influenza Virus Vaccine,quad Im,preserve Free 65+ (FLUAD) Unknown Completed [facility] Zoster Vaccine Recombinant Unknown Completed [facility] Pneumococcal 13 Conjugate, PCV13 (Prevnar 13) Unknown Completed [facility] Influenza High Dose Unknown Completed [facility] SARS-COV-2 COVID-19 VACCINE - (MODERNA) Unknown Completed [facility] SARS-COV-2 COVID-19 MODERNA 0.5ML BOOSTER VACCINE Unknown Completed [facility] TDAP Unknown Completed [facility] Pneumococcal Polysaccharide, PPSV23 (PNEUMOVAX) Unknown Completed [facility] Influenza, Trivalent, Adjuvanted Unknown Completed [facility] Influenza High Dose Quad Unknown Completed [facility] Hep B, Adol or Pedi Dosage Unknown Completed [facility] HEP B, Adult Dosage Unknown Completed [facility] HEPATITIS A Unknown Completed [facility] Flu Trivalent Unknown Completed [facility] Influenza Virus Vaccine,quad Im,preserve Free 65+ (FLUAD) Unknown Completed [facility] Zoster Vaccine Recombinant Unknown Completed [facility] Pneumococcal 13 Conjugate, PCV13 (Prevnar 13) Unknown Completed [facility] Influenza High Dose Unknown Completed [facility] SARS-COV-2 COVID-19 VACCINE - (MODERNA) Unknown Completed [facility] SARS-COV-2 COVID-19 MODERNA 0.5ML BOOSTER VACCINE Unknown Completed [facility] TDAP Unknown Completed [facility] Pneumococcal Polysaccharide, PPSV23 (PNEUMOVAX) Unknown Completed [facility] Influenza, Trivalent, Adjuvanted Unknown Completed [facility] Influenza High Dose Quad Unknown Completed [facility] Hep B, Adol or Pedi Dosage Unknown Completed [facility] HEP B, Adult Dosage Unknown Completed [facility] HEPATITIS A Unknown Completed [facility] Flu Trivalent Unknown Completed [facility] Influenza Virus Vaccine,quad Im,preserve Free 65+ (FLUAD) Unknown Completed [facility] Zoster Vaccine Recombinant Unknown Completed [facility] Pneumococcal 13 Conjugate, PCV13 (Prevnar 13) Unknown Completed [facility] Influenza High Dose Unknown Completed [facility] SARS-COV-2 COVID-19 VACCINE - (MODERNA) Unknown Completed [facility] SARS-COV-2 COVID-19 MODERNA 0.5ML BOOSTER VACCINE Unknown Completed [facility] TDAP Unknown Completed [facility] Pneumococcal Polysaccharide, PPSV23 (PNEUMOVAX) Unknown Completed [facility] Influenza, Trivalent, Adjuvanted Unknown Completed [facility] Influenza High Dose Quad Unknown Completed [facility] Hep B, Adol or Pedi Dosage Unknown Completed [facility] HEP B, Adult Dosage Unknown Completed [facility] HEPATITIS A Unknown Completed [facility] Flu Trivalent Unknown Completed [facility] Influenza Virus Vaccine,quad Im,preserve Free 65+ (FLUAD) Unknown Completed [facility] Zoster Vaccine Recombinant Unknown Completed [facility] Pneumococcal 13 Conjugate, PCV13 (Prevnar 13) Unknown Completed [facility] Influenza High Dose Unknown Completed [facility] SARS-COV-2 COVID-19 VACCINE - (MODERNA) Unknown Completed [facility] SARS-COV-2 COVID-19 MODERNA 0.5ML BOOSTER VACCINE Unknown Completed [facility] TDAP Unknown Completed [facility] Pneumococcal Polysaccharide, PPSV23 (PNEUMOVAX) Unknown Completed [facility] Influenza, Trivalent, Adjuvanted Unknown Completed [facility] Influenza High Dose Quad Unknown Completed [facility] Hep B, Adol or Pedi Dosage Unknown Completed [facility] HEP B, Adult Dosage Unknown Completed [facility] HEPATITIS A Unknown Completed [facility] Flu Trivalent Unknown Completed [facility] Influenza Virus Vaccine,quad Im,preserve Free 65+ (FLUAD) Unknown Completed [facility] Zoster Vaccine Recombinant Unknown Completed [facility] Pneumococcal 13 Conjugate, PCV13 (Prevnar 13) Unknown Completed [facility] Influenza High Dose Unknown Completed [facility] SARS-COV-2 COVID-19 VACCINE - (MODERNA) Unknown Completed [facility] SARS-COV-2 COVID-19 MODERNA 0.5ML BOOSTER VACCINE Unknown Completed [facility] TDAP Unknown Completed [facility] Pneumococcal Polysaccharide, PPSV23 (PNEUMOVAX) Unknown Completed [facility] Influenza, Trivalent, Adjuvanted Unknown Completed [facility] Influenza High Dose Quad Unknown Completed [facility] Hep B, Adol or Pedi Dosage Unknown Completed [facility] HEP B, Adult Dosage Unknown Completed [facility] HEPATITIS A Unknown Completed [facility] Flu Trivalent Unknown Completed [facility] Influenza Virus Vaccine,quad Im,preserve Free 65+ (FLUAD) Unknown Completed [facility] Zoster Vaccine Recombinant Unknown Completed [facility] Pneumococcal 13 Conjugate, PCV13 (Prevnar 13) Unknown Completed [facility] Influenza High Dose Unknown Completed [facility] SARS-COV-2 COVID-19 VACCINE - (MODERNA) Unknown Completed [facility] SARS-COV-2 COVID-19 MODERNA 0.5ML BOOSTER VACCINE Unknown Completed [facility] TDAP Unknown Completed [facility] Pneumococcal Polysaccharide, PPSV23 (PNEUMOVAX) Unknown Completed [facility] Influenza, Trivalent, Adjuvanted Unknown Completed [facility] Influenza High Dose Quad Unknown Completed [facility] Hep B, Adol or Pedi Dosage Unknown Completed [facility] HEP B, Adult Dosage Unknown Completed [facility] HEPATITIS A Unknown Completed [facility] Flu Trivalent Unknown Completed [facility] Influenza Virus Vaccine,quad Im,preserve Free 65+ (FLUAD) Unknown Completed [facility] Zoster Vaccine Recombinant Unknown Completed [facility] Pneumococcal 13 Conjugate, PCV13 (Prevnar 13) Unknown Completed [facility] Influenza High Dose Unknown Completed [facility] SARS-COV-2 COVID-19 VACCINE - (MODERNA) Unknown Completed [facility] SARS-COV-2 COVID-19 MODERNA 0.5ML BOOSTER VACCINE Unknown Completed [facility] TDAP Unknown Completed [facility] Pneumococcal Polysaccharide, PPSV23 (PNEUMOVAX) Unknown Completed [facility] Influenza, Trivalent, Adjuvanted Unknown Completed [facility] Influenza High Dose Quad Unknown Completed [facility] Hep B, Adol or Pedi Dosage Unknown Completed [facility] HEP B, Adult Dosage Unknown Completed [facility] HEPATITIS A Unknown Completed [facility] Flu Trivalent Unknown Completed [facility] Influenza Virus Vaccine,quad Im,preserve Free 65+ (FLUAD) Unknown Completed [facility] Zoster Vaccine Recombinant Unknown Completed [facility] Pneumococcal 13 Conjugate, PCV13 (Prevnar 13) Unknown Completed [facility] Influenza High Dose Unknown Completed [facility] SARS-COV-2 COVID-19 VACCINE - (MODERNA) Unknown Completed [facility] SARS-COV-2 COVID-19 MODERNA 0.5ML BOOSTER VACCINE Unknown Completed [facility] TDAP Unknown Completed [facility] Pneumococcal Polysaccharide, PPSV23 (PNEUMOVAX) Unknown Completed [facility] Influenza, adjuvanted, trivalent, PF (FLUAD) Unknown Completed [facility] Influenza High Dose Quad Unknown Completed [facility] Hep B, Adol or Pedi Dosage Unknown Completed [facility] HEP B, Adult Dosage Unknown Completed [facility] HEPATITIS A Unknown Completed [facility] Influenza, split virus, trivalent, PF (AFLURIA/FLUARIX/FL ULAVAL/FLUZONE) Unknown Completed [facility] Influenza Virus Vaccine,quad Im,preserve Free 65+ (FLUAD) Unknown Completed [facility] Zoster Vaccine Recombinant Unknown Completed [facility] Pneumococcal 13 Conjugate, PCV13 (Prevnar 13) Unknown Completed [facility] Influenza High Dose Unknown Completed [facility] SARS-COV-2 COVID-19 VACCINE - (MODERNA) Unknown Completed [facility] SARS-COV-2 COVID-19 MODERNA 0.5ML BOOSTER VACCINE Unknown Completed [facility] TDAP Unknown Completed [facility] Pneumococcal Polysaccharide, PPSV23 (PNEUMOVAX) Unknown Completed [facility] Influenza, adjuvanted, trivalent, PF (FLUAD) Unknown Completed [facility] Influenza High Dose Quad Unknown Completed [facility] Hep B, Adol or Pedi Dosage Unknown Completed [facility] HEP B, Adult Dosage Unknown Completed [facility] HEPATITIS A Unknown Completed [facility] Influenza, split virus, trivalent, PF (AFLURIA/FLUARIX/FL ULAVAL/FLUZONE) Unknown Completed [facility] Influenza Virus Vaccine,quad Im,preserve Free 65+ (FLUAD) Unknown Completed [facility] Zoster Vaccine Recombinant Unknown Completed [facility] Pneumococcal 13 Conjugate, PCV13 (Prevnar 13) Unknown Completed [facility] Influenza High Dose Unknown Completed [facility] SARS-COV-2 COVID-19 VACCINE - (MODERNA) Unknown Completed [facility] SARS-COV-2 COVID-19 MODERNA 0.5ML BOOSTER VACCINE Unknown Completed [facility] TDAP Unknown Completed [facility] Pneumococcal Polysaccharide, PPSV23 (PNEUMOVAX) Unknown Completed [facility] Influenza, adjuvanted, trivalent, PF (FLUAD) Unknown Completed [facility] Influenza High Dose Quad Unknown Completed [facility] Hep B, Adol or Pedi Dosage Unknown Completed [facility] HEP B, Adult Dosage Unknown Completed [facility] HEPATITIS A Unknown Completed [facility] Influenza, split virus, trivalent, PF (AFLURIA/FLUARIX/FL ULAVAL/FLUZONE) Unknown Completed [facility] Influenza Virus Vaccine,quad Im,preserve Free 65+ (FLUAD) Unknown Completed [facility] Zoster Vaccine Recombinant Unknown Completed [facility] Pneumococcal 13 Conjugate, PCV13 (Prevnar 13) Unknown Completed [facility] Influenza High Dose Unknown Completed [facility] SARS-COV-2 COVID-19 VACCINE - (MODERNA) Unknown Completed [facility] SARS-COV-2 COVID-19 MODERNA 0.5ML BOOSTER VACCINE Unknown Completed [facility] TDAP Unknown Completed [facility] Pneumococcal Polysaccharide, PPSV23 (PNEUMOVAX) Unknown Completed [facility] Influenza, adjuvanted, trivalent, PF (FLUAD) Unknown Completed [facility] Influenza High Dose Quad Unknown Completed [facility] Hep B, Adol or Pedi Dosage Unknown Completed [facility] HEP B, Adult Dosage Unknown Completed [facility] HEPATITIS A Unknown Completed [facility] Influenza, split virus, trivalent, PF (AFLURIA/FLUARIX/FL ULAVAL/FLUZONE) Unknown Completed [facility] Influenza Virus Vaccine,quad Im,preserve Free 65+ (FLUAD) Unknown Completed [facility] Zoster Vaccine Recombinant Unknown Completed [facility] Pneumococcal 13 Conjugate, PCV13 (Prevnar 13) Unknown Completed [facility] Influenza High Dose Unknown Completed [facility] SARS-COV-2 COVID-19 VACCINE - (MODERNA) Unknown Completed [facility] SARS-COV-2 COVID-19 MODERNA 0.5ML BOOSTER VACCINE Unknown Completed [facility] TDAP Unknown Completed [facility] Pneumococcal Polysaccharide, PPSV23 (PNEUMOVAX) Unknown Completed [facility] Influenza, adjuvanted, trivalent, PF (FLUAD) Unknown Completed [facility] Influenza High Dose Quad Unknown Completed [facility] Hep B, Adol or Pedi Dosage Unknown Completed [facility] HEP B, Adult Dosage Unknown Completed [facility] HEPATITIS A Unknown Completed [facility] Influenza, split virus, trivalent, PF (AFLURIA/FLUARIX/FL ULAVAL/FLUZONE) Unknown Completed [facility] Influenza Virus Vaccine,quad Im,preserve Free 65+ (FLUAD) Unknown Completed [facility] Zoster Vaccine Recombinant Unknown Completed [facility] Pneumococcal 13 Conjugate, PCV13 (Prevnar 13) Unknown Completed [facility] Influenza High Dose Unknown Completed [facility] SARS-COV-2 COVID-19 VACCINE - (MODERNA) Unknown Completed [facility] SARS-COV-2 COVID-19 MODERNA 0.5ML BOOSTER VACCINE Unknown Completed [facility] TDAP Unknown Completed [facility] Pneumococcal Polysaccharide, PPSV23 (PNEUMOVAX) Unknown Completed [facility] Influenza, adjuvanted, trivalent, PF (FLUAD) Unknown Completed [facility] Influenza High Dose Quad Unknown Completed [facility] Hep B, Adol or Pedi Dosage Unknown Completed [facility] HEP B, Adult Dosage Unknown Completed [facility] HEPATITIS A Unknown Completed [facility] Influenza, split virus, trivalent, PF (AFLURIA/FLUARIX/FL ULAVAL/FLUZONE) Unknown Completed [facility] Influenza Virus Vaccine,quad Im,preserve Free 65+ (FLUAD) Unknown Completed [facility] Zoster Vaccine Recombinant Unknown Completed [facility] Pneumococcal 13 Conjugate, PCV13 (Prevnar 13) Unknown Completed [facility] Influenza, High-Dose, Trivalent, PF (FLUZONE) Unknown Completed [facility] SARS-COV-2 COVID-19 VACCINE - (MODERNA) Unknown Completed [facility] SARS-COV-2 COVID-19 MODERNA 0.5ML BOOSTER VACCINE Unknown Completed [facility] TDAP Unknown Completed [facility] Pneumococcal Polysaccharide, PPSV23 (PNEUMOVAX) Unknown Completed [facility] Influenza, adjuvanted, trivalent, PF (FLUAD) Unknown Completed [facility] Influenza High Dose Quad Unknown Completed [facility] Hep B, Adol or Pedi Dosage Unknown Completed [facility] HEP B, Adult Dosage Unknown Completed [facility] HEPATITIS A Unknown Completed [facility] Influenza, split virus, trivalent, PF (AFLURIA/FLUARIX/FL ULAVAL/FLUZONE) Unknown Completed [facility] Influenza Virus Vaccine,quad Im,preserve Free 65+ (FLUAD) Unknown Completed [facility] Zoster Vaccine Recombinant Unknown Completed [facility] Pneumococcal 13 Conjugate, PCV13 (Prevnar 13) Unknown Completed [facility] Influenza, High-Dose, Trivalent, PF (FLUZONE) Unknown Completed [facility] SARS-COV-2 COVID-19 VACCINE - (MODERNA) Unknown Completed [facility] SARS-COV-2 COVID-19 MODERNA 0.5ML BOOSTER VACCINE Unknown Completed [facility] TDAP Unknown Completed [facility] Pneumococcal Polysaccharide, PPSV23 (PNEUMOVAX) Unknown Completed [facility] Influenza, adjuvanted, trivalent, PF (FLUAD) Unknown Completed [facility] Influenza High Dose Quad Unknown Completed [facility] Hep B, Adol or Pedi Dosage Unknown Completed [facility] HEP B, Adult Dosage Unknown Completed [facility] HEPATITIS A Unknown Completed [facility] Influenza, split virus, trivalent, PF (AFLURIA/FLUARIX/FL ULAVAL/FLUZONE) Unknown Completed [facility] Influenza Virus Vaccine,quad Im,preserve Free 65+ (FLUAD) Unknown Completed [facility] Zoster Vaccine Recombinant Unknown Completed [facility] Pneumococcal 13 Conjugate, PCV13 (Prevnar 13) Unknown Completed [facility] Influenza, High-Dose, Trivalent, PF (FLUZONE) Unknown Completed [facility] SARS-COV-2 COVID-19 VACCINE - (MODERNA) Unknown Completed [facility] SARS-COV-2 COVID-19 MODERNA 0.5ML BOOSTER VACCINE Unknown Completed [facility] TDAP Unknown Completed [facility] Pneumococcal Polysaccharide, PPSV23 (PNEUMOVAX) Unknown Completed [facility] Influenza, adjuvanted, trivalent, PF (FLUAD) Unknown Completed [facility] Influenza High Dose Quad Unknown Completed [facility] Hep B, Adol or Pedi Dosage Unknown Completed [facility] HEP B, Adult Dosage Unknown Completed [facility] HEPATITIS A Unknown Completed [facility] Influenza, split virus, trivalent, PF (AFLURIA/FLUARIX/FL ULAVAL/FLUZONE) Unknown Completed [facility] Influenza Virus Vaccine,quad Im,preserve Free 65+ (FLUAD) Unknown Completed [facility] Zoster Vaccine Recombinant Unknown Completed [facility] Vital Signs Vital Name Observation Time Observation Value Comments S ource Systolic blood pressure 2024-12-11 15:40:00 154 mm[Hg] [facility] Diastolic blood pressure 2024-12-11 15:40:00 89 mm[Hg] [facility] Heart rate 2024-12-11 15:33:00 93 /min [facility] Body height 2024-12-11 15:33:00 165.1 cm [facility] Body weight 2024-12-11 15:33:00 65.318 kg [facility] BMI 2024-12-11 15:33:00 23.96 kg/m2 [facility] Oxygen saturation in Arterial blood by Pulse oximetry 2024-12-11 15:33:00 99 /min [facility] Systolic blood pressure 2024-12-03 18:43:00 118 mm[Hg] [facility] Diastolic blood pressure 2024-12-03 18:43:00 73 mm[Hg] [facility] Heart rate 2024-12-03 18:43:00 81 /min [facility] Body temperature 2024-12-03 18:43:00 36.67 Amy [facility] Respiratory rate 2024-12-03 18:43:00 16 /min [facility] Body weight 2024-12-03 18:43:00 65.862 kg [facility] BMI 2024-12-03 18:43:00 24.16 kg/m2 [facility] Oxygen saturation in Arterial blood by Pulse oximetry 2024-12-03 18:43:00 99 /min [facility] Systolic blood pressure 2024-12-03 15:22:00 166 mm[Hg] [facility] Diastolic blood pressure 2024-12-03 15:22:00 97 mm[Hg] [facility] Heart rate 2024-12-03 15:22:00 78 /min [facility] Respiratory rate 2024-12-03 15:22:00 19 /min [facility] Body height 2024-12-03 15:22:00 165.1 cm [facility] Body weight 2024-12-03 15:22:00 65.908 kg [facility] BMI 2024-12-03 15:22:00 24.18 kg/m2 [facility] Oxygen saturation in Arterial blood by Pulse oximetry 2024-12-03 15:22:00 99 /min [facility] Body temperature 2024-10-23 18:42:18 36.83 Amy [facility] Systolic blood pressure 2024-10-23 18:00:00 144 mm[Hg] [facility] Diastolic blood pressure 2024-10-23 18:00:00 88 mm[Hg] [facility] Heart rate 2024-10-23 18:00:00 75 /min [facility] Respiratory rate 2024-10-23 18:00:00 17 /min [facility] Oxygen saturation in Arterial blood by Pulse oximetry 2024-10-23 18:00:00 95 /min [facility] Body height 2024-10-23 16:49:00 165.1 cm [facility] Body weight 2024-10-23 16:49:00 68.04 kg [facility] BMI 2024-10-23 16:49:00 24.96 kg/m2 [facility] Systolic blood pressure 2024-10-15 19:10:00 140 mm[Hg] BP recently started new meds for increased BP [facility] Diastolic blood pressure 2024-10-15 19:10:00 88 mm[Hg] BP recently started new meds for increased BP [facility] Heart rate 2024-10-15 19:10:00 95 /min [facility] Body temperature 2024-10-15 19:10:00 36.33 Amy [facility] Respiratory rate 2024-10-15 19:10:00 22 /min [facility] Oxygen saturation in Arterial blood by Pulse oximetry 2024-10-15 19:10:00 100 /min [facility] Systolic blood pressure 2024-10-10 19:36:00 158 mm[Hg] [facility] Diastolic blood pressure 2024-10-10 19:36:00 90 mm[Hg] [facility] Heart rate 2024-10-10 19:36:00 94 /min [facility] Respiratory rate 2024-10-10 19:36:00 16 /min [facility] Oxygen saturation in Arterial blood by Pulse oximetry 2024-10-10 19:36:00 98 /min [facility] Body temperature 2024-10-10 19:35:00 36.22 Amy [facility] Systolic blood pressure 2024-10-01 19:40:00 152 mm[Hg] [facility] Diastolic blood pressure 2024-10-01 19:40:00 92 mm[Hg] [facility] Heart rate 2024-10-01 19:37:00 98 /min [facility] Body temperature 2024-10-01 19:37:00 36.72 Amy [facility] Respiratory rate 2024-10-01 19:37:00 18 /min [facility] Body weight 2024-10-01 19:37:00 66.906 kg [facility] BMI 2024-10-01 19:37:00 24.55 kg/m2 [facility] Oxygen saturation in Arterial blood by Pulse oximetry 2024-10-01 19:37:00 100 /min [facility] Systolic blood pressure 2024-09-30 20:02:00 156 mm[Hg] [facility] Diastolic blood pressure 2024-09-30 20:02:00 87 mm[Hg] [facility] Heart rate 2024-09-30 19:38:00 86 /min [facility] Respiratory rate 2024-09-30 19:38:00 18 /min [facility] Body height 2024-09-30 19:38:00 165.1 cm [facility] Body weight 2024-09-30 19:38:00 67.268 kg [facility] BMI 2024-09-30 19:38:00 24.68 kg/m2 [facility] Oxygen saturation in Arterial blood by Pulse oximetry 2024-09-30 19:38:00 100 /min [facility] Systolic blood pressure 2024-09-26 19:30:00 151 mm[Hg] Pt assymtomatic [facility] Diastolic blood pressure 2024-09-26 19:30:00 93 mm[Hg] Pt assymtomatic [facility] Heart rate 2024-09-26 19:20:00 107 /min [facility] Body temperature 2024-09-26 19:20:00 37.06 Amy [facility] Respiratory rate 2024-09-26 19:20:00 18 /min [facility] Body weight 2024-09-26 19:20:00 66.815 kg [facility] BMI 2024-09-26 19:20:00 25.33 kg/m2 [facility] Oxygen saturation in Arterial blood by Pulse oximetry 2024-09-26 19:20:00 100 /min [facility] Systolic blood pressure 2024-09-17 20:00:00 136 mm[Hg] [facility] Diastolic blood pressure 2024-09-17 20:00:00 87 mm[Hg] [facility] Heart rate 2024-09-17 20:00:00 91 /min [facility] Body temperature 2024-09-17 20:00:00 36.22 Amy [facility] Respiratory rate 2024-09-17 20:00:00 18 /min [facility] Body weight 2024-09-17 20:00:00 66.407 kg [facility] BMI 2024-09-17 20:00:00 25.18 kg/m2 [facility] Oxygen saturation in Arterial blood by Pulse oximetry 2024-09-17 20:00:00 99 /min [facility] Systolic blood pressure 2024-09-05 15:55:00 151 mm[Hg] [facility] Diastolic blood pressure 2024-09-05 15:55:00 94 mm[Hg] [facility] Heart rate 2024-09-05 15:55:00 102 /min [facility] Body temperature 2024-09-05 15:55:00 36.67 Amy [facility] Body height 2024-09-05 15:55:00 162.4 cm Verified with ADAME RN [facility] Body weight 2024-09-05 15:55:00 65.318 kg Verified with WENDI RN [facility] BMI 2024-09-05 15:55:00 24.77 kg/m2 [facility] Oxygen saturation in Arterial blood by Pulse oximetry 2024-09-05 15:55:00 100 /min [facility] Systolic blood pressure 2024-09-03 20:59:00 127 mm[Hg] [facility] Diastolic blood pressure 2024-09-03 20:59:00 81 mm[Hg] [facility] Heart rate 2024-09-03 20:59:00 98 /min [facility] Body temperature 2024-09-03 20:59:00 36.67 Amy [facility] Respiratory rate 2024-09-03 20:59:00 16 /min [facility] Body weight 2024-09-03 20:59:00 65.772 kg [facility] BMI 2024-09-03 20:59:00 24.13 kg/m2 [facility] Oxygen saturation in Arterial blood by Pulse oximetry 2024-09-03 20:59:00 100 /min [facility] Systolic blood pressure 2024-08-20 19:45:00 147 mm[Hg] [facility] Diastolic blood pressure 2024-08-20 19:45:00 86 mm[Hg] [facility] Heart rate 2024-08-20 19:45:00 85 /min [facility] Body temperature 2024-08-20 19:45:00 36.67 Amy [facility] Body height 2024-08-20 19:45:00 165.1 cm [facility] Body weight 2024-08-20 19:45:00 67.495 kg [facility] BMI 2024-08-20 19:45:00 24.76 kg/m2 [facility] Oxygen saturation in Arterial blood by Pulse oximetry 2024-08-20 19:45:00 97 /min [facility] Systolic blood pressure 2024-08-07 19:26:00 132 mm[Hg] [facility] Diastolic blood pressure 2024-08-07 19:26:00 87 mm[Hg] [facility] Heart rate 2024-08-07 19:26:00 91 /min [facility] Body temperature 2024-08-07 19:26:00 37.39 Amy [facility] Respiratory rate 2024-08-07 19:26:00 18 /min [facility] Body height 2024-08-07 19:26:00 165.1 cm [facility] Body weight 2024-08-07 19:26:00 66.769 kg [facility] BMI 2024-08-07 19:26:00 24.50 kg/m2 [facility] Oxygen saturation in Arterial blood by Pulse oximetry 2024-08-07 19:26:00 98 /min [facility] Systolic blood pressure 2024-08-06 20:00:00 122 mm[Hg] [facility] Diastolic blood pressure 2024-08-06 20:00:00 76 mm[Hg] [facility] Heart rate 2024-08-06 20:00:00 90 /min [facility] Body temperature 2024-08-06 20:00:00 35.89 Amy [facility] Respiratory rate 2024-08-06 20:00:00 16 /min [facility] Body weight 2024-08-06 20:00:00 67.268 kg [facility] BMI 2024-08-06 20:00:00 26.27 kg/m2 [facility] Oxygen saturation in Arterial blood by Pulse oximetry 2024-08-06 20:00:00 99 /min [facility] Systolic blood pressure 2024-07-30 19:19:00 149 mm[Hg] take med 9am [facility] Diastolic blood pressure 2024-07-30 19:19:00 90 mm[Hg] take med 9am [facility] Heart rate 2024-07-30 19:19:00 98 /min [facility] Body temperature 2024-07-30 19:19:00 36.11 Amy [facility] Respiratory rate 2024-07-30 19:19:00 22 /min [facility] Body height 2024-07-30 19:19:00 160 cm [facility] Body weight 2024-07-30 19:19:00 61.236 kg [facility] BMI 2024-07-30 19:19:00 23.91 kg/m2 [facility] Oxygen saturation in Arterial blood by Pulse oximetry 2024-07-30 19:19:00 98 /min [facility] Systolic blood pressure 2024-07-16 15:39:00 132 mm[Hg] [facility] Diastolic blood pressure 2024-07-16 15:39:00 84 mm[Hg] [facility] Heart rate 2024-07-16 15:39:00 91 /min [facility] Respiratory rate 2024-07-16 15:39:00 18 /min [facility] Body height 2024-07-16 15:39:00 165.1 cm [facility] Body weight 2024-07-16 15:39:00 67.767 kg [facility] BMI 2024-07-16 15:39:00 24.86 kg/m2 [facility] Oxygen saturation in Arterial blood by Pulse oximetry 2024-07-16 15:39:00 98 /min [facility] Systolic blood pressure 2024-07-09 18:52:00 151 mm[Hg] [facility] Diastolic blood pressure 2024-07-09 18:52:00 93 mm[Hg] [facility] Heart rate 2024-07-09 18:52:00 99 /min [facility] Body temperature 2024-07-09 18:52:00 36.56 Amy [facility] Respiratory rate 2024-07-09 18:52:00 18 /min [facility] Body height 2024-07-09 18:52:00 162.5 cm height abd weight verfied with Amanda BLUE [facility] Body weight 2024-07-09 18:52:00 66.316 kg height abd weight verfied with Amanda BLUE [facility] BMI 2024-07-09 18:52:00 25.11 kg/m2 [facility] Oxygen saturation in Arterial blood by Pulse oximetry 2024-07-09 18:52:00 95 /min [facility] Systolic blood pressure 2024-06-27 16:12:00 161 mm[Hg] [facility] Diastolic blood pressure 2024-06-27 16:12:00 99 mm[Hg] [facility] Heart rate 2024-06-27 16:12:00 92 /min [facility] Oxygen saturation in Arterial blood by Pulse oximetry 2024-06-27 16:12:00 98 /min [facility] Body temperature 2024-06-27 15:45:00 36.83 Amy [facility] Respiratory rate 2024-06-27 15:45:00 18 /min [facility] Body height 2024-06-27 15:45:00 165.1 cm [facility] Body weight 2024-06-27 15:45:00 66.543 kg [facility] BMI 2024-06-27 15:45:00 24.41 kg/m2 [facility] Systolic blood pressure 2024-06-19 18:05:00 148 mm[Hg] [facility] Diastolic blood pressure 2024-06-19 18:05:00 89 mm[Hg] [facility] Heart rate 2024-06-19 18:05:00 90 /min [facility] Body temperature 2024-06-19 18:04:00 36.28 Amy [facility] Respiratory rate 2024-06-19 18:04:00 18 /min [facility] Body weight 2024-06-19 18:04:00 67.087 kg [facility] BMI 2024-06-19 18:04:00 24.61 kg/m2 [facility] Oxygen saturation in Arterial blood by Pulse oximetry 2024-06-19 18:04:00 100 /min [facility] Systolic blood pressure 2024-06-18 18:05:00 136 mm[Hg] [facility] Diastolic blood pressure 2024-06-18 18:05:00 79 mm[Hg] [facility] Heart rate 2024-06-18 18:05:00 99 /min [facility] Body temperature 2024-06-18 18:05:00 36.17 Amy [facility] Respiratory rate 2024-06-18 18:05:00 18 /min [facility] Body height 2024-06-18 18:05:00 165.1 cm [facility] Body weight 2024-06-18 18:05:00 67.132 kg [facility] BMI 2024-06-18 18:05:00 24.63 kg/m2 [facility] Oxygen saturation in Arterial blood by Pulse oximetry 2024-06-18 18:05:00 99 /min [facility] Systolic blood pressure 2024-06-10 14:44:00 169 mm[Hg] [facility] Diastolic blood pressure 2024-06-10 14:44:00 100 mm[Hg] [facility] Heart rate 2024-06-10 14:42:00 101 /min [facility] Body height 2024-06-10 14:42:00 165.1 cm [facility] Body weight 2024-06-10 14:42:00 67.132 kg [facility] BMI 2024-06-10 14:42:00 24.63 kg/m2 [facility] Oxygen saturation in Arterial blood by Pulse oximetry 2024-06-10 14:42:00 97 /min [facility] Oxygen saturation in Arterial blood by Pulse oximetry 2024-06-06 18:27:00 97 /min [facility] Heart rate 2024-06-06 17:45:00 111 /min [facility] Respiratory rate 2024-06-06 17:45:00 16 /min [facility] Systolic blood pressure 2024-06-06 17:30:00 159 mm[Hg] [facility] Diastolic blood pressure 2024-06-06 17:30:00 99 mm[Hg] [facility] Body temperature 2024-06-06 15:48:00 36.22 Amy [facility] Body height 2024-06-06 10:33:00 165.1 cm [facility] Body weight 2024-06-06 10:33:00 67.8 kg [facility] BMI 2024-06-06 10:33:00 24.87 kg/m2 [facility] Systolic blood pressure 2024-06-06 15:48:00 149 mm[Hg] [facility] Diastolic blood pressure 2024-06-06 15:48:00 99 mm[Hg] [facility] Heart rate 2024-06-06 15:48:00 111 /min [facility] Body temperature 2024-06-06 15:48:00 36.22 Amy [facility] Respiratory rate 2024-06-06 15:48:00 13 /min [facility] Oxygen saturation in Arterial blood by Pulse oximetry 2024-06-06 15:48:00 100 /min [facility] Body height 2024-06-06 10:33:00 165.1 cm [facility] Body weight 2024-06-06 10:33:00 67.8 kg [facility] BMI 2024-06-06 10:33:00 24.87 kg/m2 [facility] Systolic blood pressure 2024-05-16 15:08:00 132 mm[Hg] [facility] Diastolic blood pressure 2024-05-16 15:08:00 80 mm[Hg] [facility] Heart rate 2024-05-16 15:06:00 97 /min [facility] Body temperature 2024-05-16 15:06:00 37 Amy [facility] Body height 2024-05-16 15:06:00 165.1 cm [facility] Body weight 2024-05-16 15:06:00 68.04 kg [facility] BMI 2024-05-16 15:06:00 24.96 kg/m2 [facility] Oxygen saturation in Arterial blood by Pulse oximetry 2024-05-16 15:06:00 98 /min [facility] Systolic blood pressure 2024-04-30 19:25:00 136 mm[Hg] [facility] Diastolic blood pressure 2024-04-30 19:25:00 84 mm[Hg] [facility] Heart rate 2024-04-30 19:25:00 101 /min [facility] Body temperature 2024-04-30 19:21:00 36.78 Amy [facility] Body height 2024-04-30 19:21:00 165.1 cm [facility] Body weight 2024-04-30 19:21:00 69.854 kg [facility] BMI 2024-04-30 19:21:00 25.63 kg/m2 [facility] Oxygen saturation in Arterial blood by Pulse oximetry 2024-04-30 19:21:00 97 /min [facility] Systolic blood pressure 2024-04-05 15:30:00 112 mm[Hg] [facility] Diastolic blood pressure 2024-04-05 15:30:00 77 mm[Hg] [facility] Heart rate 2024-04-05 15:30:00 90 /min [facility] Body temperature 2024-04-05 15:30:00 36.72 Amy [facility] Respiratory rate 2024-04-05 15:30:00 18 /min [facility] Body height 2024-04-05 15:30:00 165.1 cm [facility] Body weight 2024-04-05 15:30:00 68.947 kg [facility] BMI 2024-04-05 15:30:00 25.29 kg/m2 [facility] Oxygen saturation in Arterial blood by Pulse oximetry 2024-04-05 15:30:00 97 /min [facility] Systolic blood pressure 2024-03-06 17:47:00 114 mm[Hg] [facility] Diastolic blood pressure 2024-03-06 17:47:00 75 mm[Hg] [facility] Heart rate 2024-03-06 17:47:00 86 /min [facility] Body temperature 2024-03-06 17:47:00 36.72 Amy [facility] Respiratory rate 2024-03-06 17:47:00 18 /min [facility] Body height 2024-03-06 17:47:00 165.1 cm [facility] Body weight 2024-03-06 17:47:00 66.225 kg [facility] BMI 2024-03-06 17:47:00 24.30 kg/m2 [facility] Oxygen saturation in Arterial blood by Pulse oximetry 2024-03-06 17:47:00 98 /min [facility] Systolic blood pressure 2024-01-04 13:14:00 139 mm[Hg] [facility] Diastolic blood pressure 2024-01-04 13:14:00 85 mm[Hg] [facility] Heart rate 2024-01-04 13:14:00 94 /min [facility] Respiratory rate 2024-01-04 13:14:00 18 /min [facility] Body height 2024-01-04 13:14:00 165.1 cm [facility] Body weight 2024-01-04 13:14:00 68.448 kg [facility] BMI 2024-01-04 13:14:00 25.11 kg/m2 [facility] Oxygen saturation in Arterial blood by Pulse oximetry 2024-01-04 13:14:00 98 /min [facility] Systolic blood pressure 2024-01-02 19:00:00 158 mm[Hg] [facility] Diastolic blood pressure 2024-01-02 19:00:00 101 mm[Hg] [facility] Heart rate 2024-01-02 18:46:00 116 /min [facility] Body temperature 2024-01-02 18:46:00 36.28 Amy [facility] Respiratory rate 2024-01-02 18:46:00 18 /min [facility] Body height 2024-01-02 18:46:00 162.1 cm Verified - Josse Licea, SU [facility] Body weight 2024-01-02 18:46:00 66.996 kg Verified - C. Vinayak, RN [facility] BMI 2024-01-02 18:46:00 25.50 kg/m2 [facility] Oxygen saturation in Arterial blood by Pulse oximetry 2024-01-02 18:46:00 99 /min [facility] Systolic blood pressure 2023-12-04 14:25:00 140 mm[Hg] [facility] Diastolic blood pressure 2023-12-04 14:25:00 80 mm[Hg] [facility] Heart rate 2023-12-04 14:24:00 89 /min [facility] Body height 2023-12-04 14:24:00 165.1 cm [facility] Body weight 2023-12-04 14:24:00 67.949 kg [facility] BMI 2023-12-04 14:24:00 24.93 kg/m2 [facility] Oxygen saturation in Arterial blood by Pulse oximetry 2023-12-04 14:24:00 96 /min [facility] Systolic blood pressure 2023-10-19 20:02:00 158 mm[Hg] [facility] Diastolic blood pressure 2023-10-19 20:02:00 87 mm[Hg] [facility] Heart rate 2023-10-19 20:01:00 90 /min [facility] Body height 2023-10-19 20:01:00 165.1 cm [facility] Body weight 2023-10-19 20:01:00 68.584 kg [facility] BMI 2023-10-19 20:01:00 25.16 kg/m2 [facility] Oxygen saturation in Arterial blood by Pulse oximetry 2023-10-19 20:01:00 95 /min [facility] Systolic blood pressure 2023-10-17 18:35:00 148 mm[Hg] [facility] Diastolic blood pressure 2023-10-17 18:35:00 86 mm[Hg] [facility] Heart rate 2023-10-17 18:35:00 78 /min [facility] Respiratory rate 2023-10-17 18:35:00 15 /min [facility] Oxygen saturation in Arterial blood by Pulse oximetry 2023-10-17 18:35:00 97 /min [facility] Body temperature 2023-10-17 18:05:00 36.11 Amy [facility] Body height 2023-10-17 16:02:00 165.1 cm [facility] Body weight 2023-10-17 16:02:00 67.2 kg [facility] BMI 2023-10-17 16:02:00 24.65 kg/m2 [facility] Systolic blood pressure 2023-10-17 16:02:00 164 mm[Hg] [facility] Diastolic blood pressure 2023-10-17 16:02:00 95 mm[Hg] [facility] Heart rate 2023-10-17 16:02:00 107 /min [facility] Body temperature 2023-10-17 16:02:00 37 Amy [facility] Respiratory rate 2023-10-17 16:02:00 15 /min [facility] Body height 2023-10-17 16:02:00 165.1 cm [facility] Body weight 2023-10-17 16:02:00 67.2 kg [facility] BMI 2023-10-17 16:02:00 24.65 kg/m2 [facility] Oxygen saturation in Arterial blood by Pulse oximetry 2023-10-17 16:02:00 100 /min [facility] Systolic blood pressure 2023-10-05 19:52:00 137 mm[Hg] [facility] Diastolic blood pressure 2023-10-05 19:52:00 83 mm[Hg] [facility] Heart rate 2023-10-05 19:52:00 88 /min [facility] Respiratory rate 2023-10-05 19:52:00 18 /min [facility] Body height 2023-10-05 19:52:00 165.1 cm [facility] Body weight 2023-10-05 19:52:00 69.128 kg [facility] BMI 2023-10-05 19:52:00 25.36 kg/m2 [facility] Oxygen saturation in Arterial blood by Pulse oximetry 2023-10-05 19:52:00 99 /min [facility] Systolic blood pressure 2023-08-16 21:10:00 143 mm[Hg] pt denies s/s of distress [facility] Diastolic blood pressure 2023-08-16 21:10:00 86 mm[Hg] pt denies s/s of distress [facility] Heart rate 2023-08-16 21:10:00 91 /min [facility] Body temperature 2023-08-16 21:10:00 35.83 Amy [facility] Respiratory rate 2023-08-16 21:10:00 16 /min [facility] Body height 2023-08-16 21:10:00 165.1 cm [facility] Body weight 2023-08-16 21:10:00 68.72 kg [facility] BMI 2023-08-16 21:10:00 25.21 kg/m2 [facility] Oxygen saturation in Arterial blood by Pulse oximetry 2023-08-16 21:10:00 100 /min [facility] Systolic blood pressure 2023-07-31 14:55:00 125 mm[Hg] [facility] Diastolic blood pressure 2023-07-31 14:55:00 52 mm[Hg] [facility] Heart rate 2023-07-31 14:55:00 86 /min [facility] Body temperature 2023-07-31 14:55:00 36.78 Amy [facility] Respiratory rate 2023-07-31 14:55:00 17 /min [facility] Body height 2023-07-31 14:55:00 165.1 cm [facility] Body weight 2023-07-31 14:55:00 68.947 kg [facility] BMI 2023-07-31 14:55:00 25.29 kg/m2 [facility] Oxygen saturation in Arterial blood by Pulse oximetry 2023-07-31 14:55:00 100 /min [facility] Systolic blood pressure 2023-05-29 15:34:00 153 mm[Hg] [facility] Diastolic blood pressure 2023-05-29 15:34:00 91 mm[Hg] [facility] Heart rate 2023-05-29 15:34:00 96 /min [facility] Oxygen saturation in Arterial blood by Pulse oximetry 2023-05-29 15:34:00 100 /min [facility] Body temperature 2023-05-29 15:32:00 36.89 Amy [facility] Respiratory rate 2023-05-29 15:32:00 17 /min [facility] Body height 2023-05-29 15:32:00 165.1 cm [facility] Body weight 2023-05-29 15:32:00 67.903 kg [facility] BMI 2023-05-29 15:32:00 24.91 kg/m2 [facility] Systolic blood pressure 2023-05-18 20:25:00 131 mm[Hg] [facility] Diastolic blood pressure 2023-05-18 20:25:00 85 mm[Hg] [facility] Heart rate 2023-05-18 20:25:00 94 /min [facility] Body temperature 2023-05-18 20:25:00 36.44 Amy [facility] Body height 2023-05-18 20:25:00 165.1 cm [facility] Body weight 2023-05-18 20:25:00 67.586 kg [facility] BMI 2023-05-18 20:25:00 24.79 kg/m2 [facility] Oxygen saturation in Arterial blood by Pulse oximetry 2023-05-18 20:25:00 98 /min [facility] Systolic blood pressure 2023-04-25 14:06:00 147 mm[Hg] [facility] Diastolic blood pressure 2023-04-25 14:06:00 91 mm[Hg] [facility] Heart rate 2023-04-25 13:54:00 88 /min [facility] Body temperature 2023-04-25 13:54:00 36.72 Amy [facility] Body height 2023-04-25 13:54:00 165.1 cm [facility] Body weight 2023-04-25 13:54:00 68.04 kg [facility] BMI 2023-04-25 13:54:00 24.96 kg/m2 [facility] Oxygen saturation in Arterial blood by Pulse oximetry 2023-04-25 13:54:00 98 /min [facility] Systolic blood pressure 2022-12-29 16:34:00 131 mm[Hg] [facility] Diastolic blood pressure 2022-12-29 16:34:00 81 mm[Hg] [facility] Heart rate 2022-12-29 16:34:00 88 /min [facility] Body temperature 2022-12-29 16:34:00 36.39 Amy [facility] Body height 2022-12-29 16:34:00 165.1 cm [facility] Body weight 2022-12-29 16:34:00 67.586 kg [facility] BMI 2022-12-29 16:34:00 24.79 kg/m2 [facility] Oxygen saturation in Arterial blood by Pulse oximetry 2022-12-29 16:34:00 100 /min [facility] Systolic blood pressure 2022-11-21 19:54:00 136 mm[Hg] [facility] Diastolic blood pressure 2022-11-21 19:54:00 86 mm[Hg] [facility] Heart rate 2022-11-21 19:54:00 96 /min [facility] Body temperature 2022-11-21 19:54:00 37 Aym [facility] Respiratory rate 2022-11-21 19:54:00 16 /min [facility] Body height 2022-11-21 19:54:00 165.1 cm [facility] Body weight 2022-11-21 19:54:00 65.59 kg [facility] BMI 2022-11-21 19:54:00 24.06 kg/m2 [facility] Oxygen saturation in Arterial blood by Pulse oximetry 2022-11-21 19:54:00 98 /min [facility] Systolic blood pressure 2022-10-25 14:52:00 130 mm[Hg] [facility] Diastolic blood pressure 2022-10-25 14:52:00 82 mm[Hg] [facility] Heart rate 2022-10-25 14:52:00 90 /min [facility] Body temperature 2022-10-25 14:52:00 36.94 Amy [facility] Body height 2022-10-25 14:52:00 165.1 cm [facility] Body weight 2022-10-25 14:52:00 67.903 kg [facility] BMI 2022-10-25 14:52:00 24.91 kg/m2 [facility] Oxygen saturation in Arterial blood by Pulse oximetry 2022-10-25 14:52:00 98 /min [facility] Systolic blood pressure 2022-09-23 17:12:00 132 mm[Hg] [facility] Diastolic blood pressure 2022-09-23 17:12:00 87 mm[Hg] [facility] Heart rate 2022-09-23 17:12:00 93 /min [facility] Body temperature 2022-09-23 17:12:00 37 Amy [facility] Respiratory rate 2022-09-23 17:12:00 17 /min [facility] Body height 2022-09-23 17:12:00 165.1 cm [facility] Body weight 2022-09-23 17:12:00 68.04 kg [facility] BMI 2022-09-23 17:12:00 24.96 kg/m2 [facility] Oxygen saturation in Arterial blood by Pulse oximetry 2022-09-23 17:12:00 98 /min [facility] Systolic blood pressure 2022-08-15 15:55:00 121 mm[Hg] [facility] Diastolic blood pressure 2022-08-15 15:55:00 75 mm[Hg] [facility] Heart rate 2022-08-15 15:54:00 100 /min [facility] Body temperature 2022-08-15 15:54:00 36.83 Amy [facility] Body height 2022-08-15 15:54:00 165.1 cm [facility] Body weight 2022-08-15 15:54:00 68.04 kg [facility] BMI 2022-08-15 15:54:00 24.96 kg/m2 [facility] Oxygen saturation in Arterial blood by Pulse oximetry 2022-08-15 15:54:00 100 /min [facility] Systolic blood pressure 2022-07-22 14:27:00 145 mm[Hg] [facility] Diastolic blood pressure 2022-07-22 14:27:00 87 mm[Hg] [facility] Heart rate 2022-07-22 14:26:00 105 /min [facility] Body temperature 2022-07-22 14:26:00 36.94 Amy [facility] Body height 2022-07-22 14:26:00 165.1 cm [facility] Body weight 2022-07-22 14:26:00 67.132 kg [facility] BMI 2022-07-22 14:26:00 24.63 kg/m2 [facility] Oxygen saturation in Arterial blood by Pulse oximetry 2022-07-22 14:26:00 97 /min [facility] Systolic blood pressure 2024-10-15 19:10:00 140 mm[Hg] BP recently started new meds for increased BP [facility] Diastolic blood pressure 2024-10-15 19:10:00 88 mm[Hg] BP recently started new meds for increased BP [facility] Heart rate 2024-10-15 19:10:00 95 /min [facility] Body temperature 2024-10-15 19:10:00 36.33 Amy [facility] Respiratory rate 2024-10-15 19:10:00 22 /min [facility] Oxygen saturation in Arterial blood by Pulse oximetry 2024-10-15 19:10:00 100 /min [facility] Body weight 2024-10-01 19:37:00 66.906 kg [facility] BMI 2024-10-01 19:37:00 24.55 kg/m2 [facility] Body height 2024-09-30 19:38:00 165.1 cm [facility] Systolic blood pressure 2024-07-16 15:39:00 132 mm[Hg] [facility] Diastolic blood pressure 2024-07-16 15:39:00 84 mm[Hg] [facility] Heart rate 2024-07-16 15:39:00 91 /min [facility] Respiratory rate 2024-07-16 15:39:00 18 /min [facility] Body height 2024-07-16 15:39:00 165.1 cm [facility] Body weight 2024-07-16 15:39:00 67.767 kg [facility] BMI 2024-07-16 15:39:00 24.86 kg/m2 [facility] Oxygen saturation in Arterial blood by Pulse oximetry 2024-07-16 15:39:00 98 /min [facility] Body temperature 2024-07-09 18:52:00 36.56 Amy [facility] Procedures Procedure Date / Time Performed Performing Clinician Source DEXA AXIAL (HIP AND SPINE) 2024-12-12 16:12:32 Luigi Ding [facility] EKG-12 LEAD 2024-10-23 18:35:40 Mary Anne Garcia [facility] XR CHEST 1 VW 2024-10-23 17:41:00 Mary Anne Garcia [facility] LIPASE 2024-10-23 17:21:00 Mary Anne Garcia [facility] TROPONIN I 2024-10-23 17:21:00 Mary Anne Garcia [facility] COMP. METABOLIC PANEL ([id number]) 2024-10-23 17:21:00 Mary Anne Garcia [facility] CBC WITH DIFF 2024-10-23 17:21:00 Mary Anne Garcia [facility] RAD ONC MSQ TREATMENT SUMMARY 2024-10-16 19:23:00 Doctor Unassigned, [place] [facility] RAD ONC MSQ TREATMENT SUMMARY 2024-10-16 19:23:00 Doctor Unassigned, [place] [facility] RAD ONC MSQ TREATMENT SUMMARY 2024-10-15 19:10:00 Doctor Unassigned, [place] [facility] RAD ONC MSQ TREATMENT SUMMARY 2024-10-15 19:10:00 Doctor Unassigned, [place] [facility] RAD ONC MSQ TREATMENT SUMMARY 2024-10-14 19:17:00 Doctor Unassigned, [place] [facility] RAD ONC MSQ TREATMENT SUMMARY 2024-10-14 19:17:00 Doctor Unassigned, [place] [facility] RAD ONC MSQ TREATMENT SUMMARY 2024-10-10 19:15:00 Doctor Unassigned, [place] [facility] RAD ONC MSQ TREATMENT SUMMARY 2024-10-10 19:15:00 Doctor Unassigned, [place] [facility] RAD ONC MSQ TREATMENT SUMMARY 2024-10-08 19:17:00 Doctor Unassigned, [place] [facility] RAD ONC MSQ TREATMENT SUMMARY 2024-10-08 19:17:00 Doctor Unassigned, [place] [facility] RAD ONC MSQ TREATMENT SUMMARY 2024-10-07 19:06:00 Doctor Unassigned, [place] [facility] RAD ONC MSQ TREATMENT SUMMARY 2024-10-07 19:06:00 Doctor Unassigned, [place] [facility] RAD ONC MSQ TREATMENT SUMMARY 2024-10-04 19:14:00 Doctor Unassigned, [place] [facility] RAD ONC MSQ TREATMENT SUMMARY 2024-10-04 19:14:00 Doctor Unassigned, [place] [facility] RAD ONC MSQ TREATMENT SUMMARY 2024-10-02 19:18:00 Doctor Unassigned, [place] [facility] RAD ONC MSQ TREATMENT SUMMARY 2024-10-02 19:18:00 Doctor Unassigned, [facility] TREATMENT SUMMARY 2024-10-01 19:27:00 Doctor Unassigned, [facility] TREATMENT SUMMARY 2024-10-01 19:27:00 Doctor Unassigned, [facility]Q TREATMENT SUMMARY 2024-09-28 15:58:00 Doctor Unassigned, [facility] TREATMENT SUMMARY 2024-09-28 15:58:00 Doctor Unassigned, [facility] TREATMENT SUMMARY 2024-09-20 19:16:00 Doctor Unassigned, [facility] TREATMENT SUMMARY 2024-09-20 19:16:00 Doctor Unassigned, [facility] MSQ TREATMENT SUMMARY 2024-09-19 19:20:00 Doctor Unassigned, [place] RAD ONC MSQ TREATMENT SUMMARY 2024-09-19 19:20:00 Doctor Unassigned, [place] [facility] RAD ONC MSQ TREATMENT SUMMARY 2024-09-18 15:49:00 Doctor Unassigned, [place] [facility] RAD ONC MSQ TREATMENT SUMMARY 2024-09-18 15:49:00 Doctor Unassigned, [place] [facility] OP CLINIC NOTES/CONSULTS 2024-09-03 19:40:00 Doctor Unassigned, [place] [facility] DUPLEX ARTERIAL ARM RIGHT - BY VASCULAR LAB 2024-08-19 21:47:58 Tray Abbott [facility] DUPLEX ARTERIAL ARM RIGHT - BY VASCULAR LAB 2024-08-19 21:47:58 Tray Abbott [facility] FL TIME OR (NON-REPORTABLE) 2024-06-06 14:51:14 Mallorie Saravia [facility] FL TIME OR (NON-REPORTABLE) 2024-06-06 14:51:14 Mallorie Saravia [facility] FL TIME OR (NON-REPORTABLE) 2024-06-06 14:51:14 Mallorie Saravia [facility] SURGICAL PATHOLOGY EXAM 2024-06-06 14:37:00 Yassine Neri [facility] NM INJECTION SENTINEL NODE 2024-06-06 13:40:00 Mallorie Saravia [facility] NM INJECTION SENTINEL NODE 2024-06-06 13:40:00 Mallorie Saravia [facility] INTUBATION 2024-06-06 13:23:00 Karson Christensen [facility] [address] - [place] MASTECTOMY PARTIAL 2024-06-06 12:43:00 Yassine Neri [facility] 13152 - CHG RADIOLOGICAL EXAMINATION SURGICAL SPECIMEN 2024-06-06 12:43:00 Yassine Neri [facility] 24581 - CHG ULTRASONIC VALENTINA NCE INTRAOPERATIVE 2024-06-06 12:43:00 Yassine Neri [facility] [address]35 - [place] MASTECTOMY PARTIAL 2024-06-06 12:43:00 Yassine Neri [facility] [address]97[address] - CHG RADIOLOGICAL EXAMINATION SURGICAL SPECIMEN 2024-06-06 12:43:00 Yassine Neri [facility] 29367 - CHG ULTRASONIC [place] NCE INTRAOPERATIVE 2024-06-06 12:43:00 Yassine Neri [facility] CBC WITH DIFF 2024-05-16 16:10:00 Mariana Purcell [facility] COMP. METABOLIC PANEL (50763) 2024-05-16 16:10:00 Mariana Purcell [facility] GLYCOSYLATED HEMOGLOBIN (A1C) 2024-05-16 16:10:00 Mariana Purcell [facility] PROTHROMBIN TIME / INR 2024-05-16 16:10:00 Mariana Purcell [facility] ACTIVATED PARTIAL THRMPLAS YO 2024-05-05 2 16:10:00 Mariana Purcell [facility] HB ECG ROUTINE & RHYTHM STRIP 2024-05-16 15:27:49 Mariana Purcell [facility] BI US GUIDED CORE BREAST BIO PSY RIGHT 2024-04-23 17:51:00 Roberto [facility] BI US GUIDED CORE BREAST BIO PSY RIGHT 2024-04-23 17:51:00 Roberto [facility] SURGICAL PATHOLOGY EXAM 2024-04-23 17:22:00 Roberto [facility] BI US GUIDED CORE BREAST BIO PSY RIGHT 2024-04-09 17:17:00 Roberto [facility] BI ULTRASOUND BREAST COMPLET E BILATERAL 2024-03-26 19:47:50 Roberto [facility] BI AMPARO BASINS RIGHT 2024-03-26 19:47:50 Roberto [facility] BI DIAGNOSTIC TOMOSYNTHESIS RIGHT 03-26 18:56:27 Roberto [facility] BI DIAGNOSTIC TOMOSYNTHESIS RIGHT 03-26 18:56:27 Roberto [facility] XR CERVICAL SPINE 3 VW 2024-03-06 18:48:10 Mariana Purcell [facility] PET DOTATATE TUMOR IMAGING 2024-02-19 19:10:36 Dominique Schwab [facility] LACTATE DEHYDROGENASE 2024-01-04 14:35:00 Jama Main [facility] VITAMIN B12, LEVEL 2024-01-04 14:35:00 Roberto [facility] COMP. METABOLIC PANEL (50357) 2024-01-04 14:35:00 Jose David [facility] CBC WITH DIFF 2024-01-04 14:35:00 Jose David [facility] POWER OF DIRECTOR TELEVISION 2023-10-26 06:01:00 Doctor Unassigned, [place] [facility] ESOPHAGOGASTRODUODENOSCOPY 2023-10-17 17:08:00 Erick [facility] COLONOSCOPY 2023-10-17 17:08:00 Dominique Schwab [facility] COLONOSCOPY (ENDO) 2023-10-17 16:19:14 Roberto [facility] COLONOSCOPY (ENDO) 2023-10-17 16:19:14 Roberto [facility] COLONOSCOPY (ENDO) 2023-10-17 [facility] EGD (ENDO) 2023-10-17 16:18:38 Roberto [facility] EGD (ENDO) 2023-10-17 16:18:38 [facility] ASSIGNMENT OF BENEFITS 2023-10-17 15:29:24 Doctor Unassigned, [place] [facility] POWER OF DIRECTOR TELEVISION 2023-10-11 06:01:00 Doctor Unassigned, [place] [facility] BASIC METABOLIC PANEL (NA, K , CL, CO2, GLUCOSE, BUN, CREATININE, CA) 2023-10-05 21:01:00 Mary Anne Bolanos [facility] CBC WITHOUT DIFF 2023-10-05 21:01:00 Mary Anne Bolanos [facility] ASSIGNMENT OF BENEFITS 2023-07-31 14:46:41 Doctor Unassigned, [place] [facility] TRANSTHORACIC ECHO (TTE) COMPLETE 2022-0904 18:30:37 William eMndoza [facility] REFERRAL- REQUEST/RESPONSE 2023-06-07 05:01:00 Doctor Unassigned, [place] [facility] HB ECG ROUTINE & RHYTHM STRIP 2023-05-29 15:37:23 William Mendoza [facility] POWER OF DIRECTOR TELEVISION 2023-05-25 05:01:00 Doctor Unassigned, [place] [facility] EXTERNAL PROVIDER RECORDS 2023-05-04 05:01:00 Doctor Unassigned, [place] [facility] PATIENT FINANCIAL RESPONSIBI LITY - ALL FORMS 2022-12-29 05:01:00 Doctor Unassigned, [place] [facility] COMP. METABOLIC PANEL ([id number]) 2022-09-29 13:36:00 Roberto Cristina [facility] LIPID PANEL (98542)(TOTAL CHOLESTEROL, TRIGLYCERIDES, HDL) 2022-09-29 13:36:00 Roberto Cristina [facility] GLYCOSYLATED HEMOGLOBIN (A1C) 2022-09-29 13:36:00 Roberto Cristina [facility] URINALYSIS 2022-09-29 13:36:00 Roberto Cristina [facility] ASSIGNMENT OF BENEFITS 2022-07-22 14:08:37 Doctor Unassigned, [place] [facility] REFERRAL- REQUEST/RESPONSE 2020-09-29 06:01:00 Doctor Unassigned, [place] [facility] HCV ANTIBODY 2017-08-03 16:59:00 Atiya Edwards [facility] XR ABDOMEN 1 VW 2017-07-03 23:27:00 Jeovanny Jeffries [facility] DAY SURGERY [facility] 2017-07-03 05:01:00 Doctor Unassigned, [place] [facility] Encounters Start Date/Time End Date/Time Encounter Type Admission Type Attending Clinicians Care Facility Care Department Encounter ID Source 2024-12-17 00:00:00 2024-12-18 08:47:04 Telephone Cristina Mejia [facility] 1.2.840.114 350.1.13.10 4.2.7.2.686 [id number] [facility] 2024-12-12 10:56:37 2024-12-12 23:59:00 Outpatient KLEBER MOSES TALHA [facility] [id number] [facility] 2024-12-12 10:56:37 2024-12-12 23:59:00 Hospital Encounter Kleber Bobo [facility] 1.840.114 350.1.13.10 4.2.7.2.686 [id number] [facility] 2024-12-11 10:20:00 2024-12-11 11:06:38 Outpatient R ANISA REEVES [facility] [id number] [facility] 2024-12-11 10:20:00 2024-12-11 11:06:38 Office Visit Heber [facility] 1.840.114 350.1.13.10 4.2.7.2.686 [id number] [facility] 2024-12-09 10:20:00 2024-12-09 10:20:00 Outpatient R CRISTINA MEJIA [facility] [id number] [facility] 2024-12-06 00:00:00 2024-12-06 10:19:56 Telephone Paula Miranda [facility] 1..840.114 350.1.13.10 4.2.7.2.686 [id number] [facility] 2024-12-03 15:40:00 2024-12-03 15:40:00 Outpatient R CRISTINA MEJIA [facility] [id number] [facility] 2024-12-03 14:00:00 2024-12-03 14:53:03 Outpatient PAULA SALAS [facility] [id number] [facility] 2024-12-03 14:00:00 2024-12-03 14:53:03 Office Visit Luigi Ding [facility] 1.840.114 350.1.13.10 4.2.7.2.686 [id number] [facility] 2024-12-03 10:30:00 2024-12-03 10:37:04 Office Visit Paula Miranda [facility] 1.2.840.114 350.1.13.10 4.2.7.2.686 [id number] [facility] 2024-11-28 09:30:00 2024-11-28 10:00:00 Nurse Visit Visit, Adc Nurse Paula Miranda Visit, [facility] Nurse [facility] 1.840.114 350.1.13.10 4.2.7.2.686 [id number] [facility] 2024-11-28 09:30:00 2024-11-28 09:30:00 Outpatient R PAULA MIRANDA [facility] [id number] [facility] 2024-11-26 15:00:00 2024-11-26 15:45:45 Outpatient R WILLIAM MENDOZA [facility] [id number] [facility] 2024-11-26 15:00:00 2024-11-26 15:45:45 Nurse Visit Visit, Adc Nurse William Mendoza Visit, [facility] Nurse [facility] 1..840.114 350.1.13.10 4.2.7.2.686 [id number] [facility] 2024-11-25 08:30:00 2024-11-25 23:59:00 Outpatient R PAULA MIRANDA [facility] [id number] [facility] 2024-11-25 08:30:00 2024-11-25 23:59:00 Hospital Encounter Paula Miranda [facility] 1.2.840.114 350.1.13.10 4.2.7.2.686 [id number] [facility] 2024-11-19 10:00:00 2024-11-19 10:56:30 Outpatient R CRISTINA MEJIA [facility] [id number] [facility] 2024-11-12 09:30:00 2024-11-12 11:06:58 Outpatient R ELI CASTILLO [facility] [id number] [facility] 2024-11-11 11:30:00 2024-11-11 12:04:21 Outpatient R PAULA MIRANDA [facility] [id number] [facility] 2024-10-23 10:51:00 2024-10-23 12:52:00 Emergency X MARY ANNE GARCIA [facility] [id number] [facility] 2024-10-23 10:51:00 2024-10-23 12:52:00 Emergency Mary Anne Garcia [facility] 1.840.114 350.1.13.10 4.2.7.2.686 [id number] [facility] 2017-07-03 00:00:00 2024-10-19 03:34:51 Orders Only Doctor Unassigned, [place] Doctor Unassigned, [place] [facility] 1.840.114 350.1.13.10 4.2.7.2.686 [id number] [facility] 2023-10-04 00:00:00 2024-10-19 02:35:31 Orders Only Zara Kent, [facility] 1.840.114 350.1.13.10 4.2.7.2.686 [id number] [facility] 2024-01-03 00:00:00 2024-10-19 02:07:36 Orders Only Y[facility] 1.2.840.114 350.1.13.10 4.2.7.2.686 [id number] [facility] 2024-10-18 00:00:00 2024-10-18 11:04:31 Letter (Out) 1.2.840.1 91853.1.1 3.104.2.7 .3.564272 .8 [id number] [facility] 2024-10-16 12:28:57 2024-10-16 23:59:00 Hospital Encounter JaiRolan camarena Rp 1, [facility] Rad Onc [place] 1.2.840.1 46085.1.1 3.104.2.7 .3.512096 .8 [id number] [facility] 2024-10-16 00:00:00 2024-10-16 13:24:06 Orders Only Doctor Unassigned, [place] 1.2.840.1 23090.1.1 3.104.2.7 .3.693287 .8 [id number] [facility] 2024-10-15 12:42:08 2024-10-15 23:59:00 Hospital Encounter Juan Pablo Ireland R 1, [facility] Rad Onc [place] 1.2.840.1 69786.1.1 3.104.2.7 .3.998532 .8 [id number] [facility] 2024-10-14 00:00:00 2024-10-15 17:28:33 Refill Fiorella Cortez 1.2.840.1 45434.1.1 3.104.2.7 .3.353952 .8 [id number] [facility] 2024-10-15 13:15:00 2024-10-15 15:14:53 Outpatient R ELI CASTILLO [facility] [id number] [facility] 2024-10-15 13:15:00 2024-10-15 15:14:53 Treatment Management Eli Castillo 1.2.840.1 51016.1.1 3.104.2.7 .3.785616 .8 [id number] [facility] 2024-10-15 00:00:00 2024-10-15 13:11:06 Orders Only Doctor Unassigned, [place] 1.2.840.1 19636.1.1 3.104.2.7 .3.219537 .8 [id number] [facility] 2024-10-14 12:59:29 2024-10-14 23:59:00 Hospital Encounter Juan Pablo Ireland 1, [facility] Rad Onc [place] 1.2840.1 23593.1.1 3.104.2.7 .3.130629 .8 [id number] [facility] 2024-10-14 00:00:00 2024-10-14 13:17:39 Orders Only Doctor Unassigned, [place] 1.2840.1 92156.1.1 3.104.2.7 .3.923608 .8 [id number] [facility] 2024-10-10 12:27:36 2024-10-10 23:59:00 Hospital Encounter Juan Pablo Ireland 1, [facility] Rad Onc [place] 1.2.840.1 76998.1.1 3.104.2.7 .3.745504 .8 [id number] [facility] 2024-10-10 13:15:00 2024-10-10 17:02:18 Outpatient R JUAN PABLO IRELAND III [facility] [id number] [facility] 2024-10-10 13:15:00 2024-10-10 17:02:18 Treatment Management Juan Pablo Ireland 1.2.840.1 08356.1.1 3.104.2.7 .3.244703 .8 [id number] [facility] 2024-10-10 00:00:00 2024-10-10 13:15:52 Orders Only Doctor Unassigned, [place] 1.2840.1 71866.1.1 3.104.2.7 .3.994956 .8 [id number] [facility] 2024-10-08 12:48:39 2024-10-08 23:59:00 Hospital Encounter Romi Vergarahoma Rp 1, [facility] Rad Onc [place] 1.2.840.1 38540.1.1 3.104.2.7 .3.907949 .8 [id number] [facility] 2024-10-08 00:00:00 2024-10-08 13:17:15 Orders Only Doctor Unassigned, [place] 1.2840.1 62316.1.1 3.104.2.7 .3.792356 .8 [id number] [facility] 2024-10-08 13:15:00 2024-10-08 13:15:00 Outpatient R JUAN MANUEL EVANGELISTA [facility] [id number] [facility] 2024-10-08 13:15:00 2024-10-08 13:15:00 Outpatient R ELI CASTILLO [facility] [id number] [facility] 2024-10-08 13:15:00 2024-10-08 13:15:00 Outpatient R JUAN MANUEL EVANGELISTA [facility] [id number] [facility] 2024-10-08 00:00:00 2024-10-08 00:00:00 Travel 1.2.840.1 13257.1.1 3.104.2.7 .3.956145 .8 1.2.840.114 350.1.13.10 4.2.7.3.698 084.8 [id number] [facility] 2024-10-07 12:47:38 2024-10-07 23:59:00 Hospital Encounter Jai Rolan Rp 1, [facility] Rad Onc [place] 1.2.840.1 11857.1.1 3.104.2.7 .3.860085 .8 [id number] [facility] 2024-10-07 00:00:00 2024-10-07 13:06:24 Orders Only Doctor Unassigned, [place] 1.2.840.1 84730.1.1 3.104.2.7 .3.009724 .8 [id number] [facility] 2024-10-07 13:00:00 2024-10-07 13:00:00 Outpatient R JAIROLAN BAGI [facility] [id number] [facility] 2024-10-04 12:57:31 2024-10-04 23:59:00 Hospital Encounter Rolan Vergara Rp 1, [facility] Rad Onc [place] 1.2.840.1 89352.1.1 3.104.2.7 .3.865803 .8 [id number] [facility] 2024-10-04 00:00:00 2024-10-04 13:14:55 Orders Only Doctor Unassigned, [place] 1.2.840.1 07672.1.1 3.104.2.7 .3.253411 .8 [id number] [facility] 2024-10-03 13:00:00 2024-10-03 23:59:00 Hospital Encounter Rolan Vergara Rp 1, [facility] Rad Onc [place] 1.2.840.1 97512.1.1 3.104.2.7 .3.725514 .8 [id number] [facility] 2024-10-03 13:00:00 2024-10-03 13:00:00 Outpatient R JAI ROLAN KARIMI [facility] [id number] [facility] 2024-10-03 00:00:00 2024-10-03 00:00:00 Travel 1.2.840.1 88523.1.1 3.104.2.7 .3.205516 .8 1.2.840.114 350.1.13.10 4.2.7.3.698 084.8 [id number] [facility] 2024-10-02 12:54:04 2024-10-02 23:59:00 Hospital Encounter JaiRolan camarena Rp 1, [facility] Rad Onc [place] 1.2.840.1 60923.1.1 3.104.2.7 .3.602499 .8 [id number] [facility] 2024-10-02 00:00:00 2024-10-02 13:18:22 Orders Only Doctor Unassigned, [place] 1.2.840.1 35458.1.1 3.104.2.7 .3.422190 .8 [id number] [facility] 2024-10-01 12:43:41 2024-10-01 23:59:00 Hospital Encounter JaiRolan camarena Rp 1, [facility] Rad Onc [place] 1.2.840.1 99775.1.1 3.104.2.7 .3.666787 .8 [id number] [facility] 2024-10-01 13:15:00 2024-10-01 16:16:17 Outpatient R CASTILLOELI [facility] [id number] [facility] 2024-10-01 13:15:00 2024-10-01 16:16:17 Treatment Management CastilloLisyra S 1.2.840.1 34551.1.1 3.104.2.7 .3.447560 .8 [id number] [facility] 2024-10-01 00:00:00 2024-10-01 13:28:15 Orders Only Doctor Unassigned, [place] 1.2.840.1 55401.1.1 3.104.2.7 .3.924910 .8 [id number] [facility] 2024-09-30 07:15:00 2024-09-30 23:59:00 Hospital Encounter Rolan Vergara Rp Physics, [facility] Rad Onc 1.2.840.1 50977.1.1 3.104.2.7 .3.253386 .8 [id number] [facility] 2024-09-30 13:40:00 2024-09-30 14:40:39 Outpatient R CRISTINA MEJIA [facility] [id number] [facility] 2024-09-30 13:40:00 2024-09-30 14:40:39 Office Visit Cristina Mejia 1.2.840.1 99765.1.1 3.104.2.7 .3.594799 .8 [id number] [facility] 2024-09-30 07:15:00 2024-09-30 07:15:00 Outpatient R ROLAN VERGARA BAGI [facility] [id number] [facility] 2024-09-30 00:00:00 2024-09-30 00:00:00 Travel 1.2.840.1 25297.1.1 3.104.2.7 .3.904408 .8 1.2.840.114 350.1.13.10 4.2.7.3.698 084.8 [id number] [facility] 2024-09-28 09:43:35 2024-09-28 23:59:00 Hospital Encounter Eli Castillo 1, [facility] Rad Onc [place] 1.2.840.1 79969.1.1 3.104.2.7 .3.078299 .8 [id number] [facility] 2024-09-28 00:00:00 2024-09-28 09:58:38 Orders Only Doctor Unassigned, [place] 1.2.840.1 07228.1.1 3.104.2.7 .3.799060 .8 [id number] [facility] 2024-09-27 12:31:46 2024-09-27 23:59:00 Hospital Encounter Rolan Vergara Rp 1, [facility] [place] 1.2.840.1 16516.1.1 3.104.2.7 .3.489902 .8 [id number] [facility] 2024-09-27 00:00:00 2024-09-27 13:16:05 Clinic Assessment Eli Castillo 1.2.840.1 70507.1.1 3.104.2.7 .3.017555 .8 [id number] [facility] 2024-09-27 00:00:00 2024-09-27 00:00:00 Travel 1.2.840.1 80064.1.1 3.104.2.7 .3.545733 .8 1.2.840.114 350.1.13.10 4.2.7.3.698 084.8 [id number] [facility] 2024-09-26 13:00:00 2024-09-26 23:59:00 Hospital Encounter Rolan Vergara Rp 1, [facility] [place] 1.2.840.1 37637.1.1 3.104.2.7 .3.747464 .8 [id number] [facility] 2024-09-26 13:15:00 2024-09-26 17:12:43 Treatment Management Eli Castillo 1.2.840.1 73045.1.1 3.104.2.7 .3.120592 .8 [id number] [facility] 2024-09-20 12:48:47 2024-09-20 23:59:00 Hospital Encounter Rolan Vergara Rp 1, [facility] [place] 1.2.840.1 77619.1.1 3.104.2.7 .3.300586 .8 [id number] [facility] 2024-09-20 00:00:00 2024-09-20 13:16:37 Orders Only Doctor Unassigned, [place] 1.2.840.1 71624.1.1 3.104.2.7 .3.261022 .8 [id number] [facility] 2024-09-19 12:35:07 2024-09-19 23:59:00 Hospital Encounter Rolan Vergara Rp 1, [facility] Rad Onc [place] 1.2.840.1 88831.1.1 3.104.2.7 .3.891048 .8 [id number] [facility] 2024-09-19 00:00:00 2024-09-19 13:20:36 Orders Only Doctor Unassigned, [place] 1.2.840.1 81273.1.1 3.104.2.7 .3.400931 .8 [id number] [facility] 2024-09-19 00:00:00 2024-09-19 00:00:00 Travel 1.2.840.1 28812.1.1 3.104.2.7 .3.709468 .8 1.2.840.114 350.1.13.10 4.2.7.3.698 084.8 [id number] [facility] 2024-09-18 09:11:17 2024-09-18 23:59:00 Hospital Encounter Eli Castillo S 2, [facility] Rad Oncology [place] 1.2.840.1 70960.1.1 3.104.2.7 .3.936152 .8 [id number] [facility] 2024-09-18 00:00:00 2024-09-18 09:50:02 Orders Only Doctor Unassigned, [place] 1.2.840.1 70285.1.1 3.104.2.7 .3.711786 .8 [id number] [facility] 2024-09-17 12:28:23 2024-09-17 23:59:00 Hospital Encounter Eli Castillo S 1, [facility] Rad Onc [place] 1.2.840.1 92360.1.1 3.104.2.7 .3.798876 .8 [id number] [facility] 2024-09-17 13:15:00 2024-09-17 13:30:00 Treatment Management Eli Castillo 1.2.840.1 01767.1.1 3.104.2.7 .3.598056 .8 [id number] [facility] 2024-09-17 13:15:00 2024-09-17 13:15:00 Outpatient ELI SAMSON [facility] [id number] [facility] 2024-09-17 00:00:00 2024-09-17 00:00:00 Travel 1.2.840.1 77771.1.1 3.104.2.7 .3.469191 .8 1.2.840.114 350.1.13.10 4.2.7.3.698 084.8 [id number] [facility] 2024-09-12 07:00:00 2024-09-12 23:59:00 Outpatient R ELI CASTILLO [facility] [id number] [facility] 2024-09-12 07:00:00 2024-09-12 23:59:00 Hospital Encounter Eli Castillo [facility] Rad Onc Yassine Neri 1.2.840.1 83758.1.1 3.104.2.7 .3.538502 .8 [id number] [facility] 2024-09-10 11:15:00 2024-09-10 23:59:00 Outpatient ELI SAMSON [facility] [id number] [facility] 2024-09-10 11:15:00 2024-09-10 23:59:00 Hospital Encounter Eli Castillo [address], [facility] Rad Oncology 1.2.840.1 75546.1.1 3.104.2.7 .3.766656 .8 [id number] [facility] 2024-09-10 10:15:00 2024-09-10 10:15:00 Outpatient R ANDRY MOMINIG MOMINEMANUEL [facility] [id number] [facility] 2024-09-10 00:00:00 2024-09-10 00:00:00 Travel 1.2.840.1 84056.1.1 3.104.2.7 .3.354724 .8 1.2.840.114 350.1.13.10 4.2.7.3.698 084.8 [id number] [facility] 2024-09-09 07:45:00 2024-09-09 07:45:00 Outpatient R [facility] [id number] [facility] 2024-09-05 06:00:00 2024-09-05 23:59:00 Outpatient R CASTILLOLISYRA [facility] [id number] [facility] 2024-09-05 06:00:00 2024-09-05 23:59:00 Hospital Encounter Eli Castillo 1.2.840.1 30650.1.1 3.104.2.7 .3.250009 .8 [id number] [facility] 2024-09-05 10:00:00 2024-09-05 13:50:24 Outpatient R LISY CASTILLORA [facility] [id number] [facility] 2024-09-05 10:00:00 2024-09-05 13:50:24 Office Visit Lisy Castillora Ady 1.2.840.1 60869.1.1 3.104.2.7 .3.926016 .8 [id number] [facility] 2024-09-03 15:20:00 2024-09-03 16:02:19 Outpatient R TIANNA JIN [facility] [id number] [facility] 2024-09-03 15:20:00 2024-09-03 16:02:19 Office Visit Tianna Jin Ajay 1.2.840.1 15912.1.1 3.104.2.7 .3.804489 .8 [id number] [facility] 2024-08-29 00:00:00 2024-09-03 07:51:50 Telephone Cristina Mejia 1.2.840.1 40343.1.1 3.104.2.7 .3.939255 .8 [id number] [facility] 2024-09-02 11:00:00 2024-09-02 11:00:00 Outpatient R EMANUEL MOMIN CRAIG [facility] [id number] [facility] 2024-08-22 10:10:00 2024-08-22 10:10:00 Outpatient R KELY SLATER [facility] [id number] [facility] 2024-08-20 14:15:00 2024-08-20 14:30:00 Office Visit Yassine Neri 1.2.840.1 51011.1.1 3.104.2.7 .3.934990 .8 [id number] [facility] 2024-08-20 14:15:00 2024-08-20 14:15:00 Outpatient YASSINE URBAN RAJ [facility] [id number] [facility] 2024-08-19 15:00:00 2024-08-19 23:59:00 Outpatient R TRAY ABBOTT [facility] [id number] [facility] 2024-08-19 15:00:00 2024-08-19 23:59:00 Hospital Encounter Tray Abbott 1.2.840.1 38682.1.1 3.104.2.7 .3.741109 .8 [id number] [facility] 2024-08-19 00:00:00 2024-08-19 00:00:00 Travel 1.2.840.1 17163.1.1 3.104.2.7 .3.403161 .8 1.2.840.114 350.1.13.10 4.2.7.3.698 084.8 [id number] [facility] 2024-08-06 00:00:00 2024-08-16 11:49:50 Telephone Timur Luigi 1.2.840.1 11292.1.1 3.104.2.7 .3.886752 .8 [id number] [facility] 2024-08-12 00:00:00 2024-08-12 15:51:20 Telephone Yassine Neri [facility] 1.2.840.114 350.1.13.10 4.2.7.2.686 [id number] [facility] 2024-08-07 13:30:00 2024-08-07 13:59:39 Outpatient R TRAY ABBOTT [facility] [id number] [facility] 2024-08-07 13:30:00 2024-08-07 13:59:39 Office Visit Tray Abbott 1.2.840.1 96534.1.1 3.104.2.7 .3.146435 .8 [id number] [facility] 2024-08-07 00:00:00 2024-08-07 13:51:22 Letter (Out) Doctor Unassigned, Culver 1.2.840.1 71764.1.1 3.104.2.7 .3.771199 .8 [id number] [facility] 2024-08-07 00:00:00 2024-08-07 13:51:22 Letter (Out) Doctor Unassigned, Culver 1.2.840.1 69388.1.1 3.104.2.7 .3.702343 .8 [id number] [facility] 2024-08-07 00:00:00 2024-08-07 13:51:17 Letter (Out) Doctor Unassigned, Culver 1.2.840.1 02546.1.1 3.104.2.7 .3.980818 .8 [id number] [facility] 2024-08-07 10:15:00 2024-08-07 11:09:09 Ancillary Visit Emanuel Momin Dara 1.2.840.1 35058.1.1 3.104.2.7 .3.488867 .8 [id number] [facility] 2024-08-06 14:40:00 2024-08-06 15:20:00 Office Visit Kleber Bobo Ajay 1.2.840.1 64356.1.1 3.104.2.7 .3.027051 .8 [id number] [facility] 2024-08-06 14:40:00 2024-08-06 14:40:00 Outpatient R KLEBER BOBO TALHA [facility] [id number] [facility] 2024-08-06 00:00:00 2024-08-06 00:00:00 Travel 1.2.840.1 64170.1.1 3.104.2.7 .3.038836 .8 1.2.840.114 350.1.13.10 4.2.7.3.698 084.8 [id number] [facility] 2024-08-03 00:00:00 2024-08-05 13:11:31 Refill Cristina Mejia 1.2.840.1 44515.1.1 3.104.2.7 .3.720263 .8 [id number] [facility] 2024-07-30 00:00:00 2024-07-30 16:32:28 Telephone Yassine Neri 1.2.840.1 54942.1.1 3.104.2.7 .3.830953 .8 [id number] [facility] 2024-07-30 13:00:00 2024-07-30 13:15:00 Office Visit Yassine Neri 1.2.840.1 55213.1.1 3.104.2.7 .3.285701 .8 [id number] [facility] 2024-07-30 13:00:00 2024-07-30 13:00:00 Outpatient R YASSINE NERI PURNIMAYASSINE SAINI [facility] [id number] [facility] 2024-07-30 00:00:00 2024-07-30 00:00:00 Travel 1.2.840.1 35173.1.1 3.104.2.7 .3.541725 .8 1.2.840.114 350.1.13.10 4.2.7.3.698 084.8 [id number] [facility] 2024-07-29 10:40:00 2024-07-29 10:40:00 Outpatient R REJIHERNANDEZDONALD [facility] [id number] [facility] 2024-07-22 00:00:00 2024-07-26 16:17:15 Telephone Cristina Mejia 1.2.840.1 84023.1.1 3.104.2.7 .3.018756 .8 [id number] [facility] 2024-07-26 00:00:00 2024-07-26 15:32:22 Telephone Cristina Mejia 1.2.840.1 59938.1.1 3.104.2.7 .3.716987 .8 [id number] [facility] 2024-07-17 00:00:00 2024-07-17 00:00:00 Outpatient R KLEBER BOBO TALHA [facility] [id number] [facility] 2024-07-16 11:09:26 2024-07-16 23:59:00 Hospital Encounter Cristina Mejia 1.2.840.1 05535.1.1 3.104.2.7 .3.136376 .8 [id number] [facility] 2024-07-16 10:00:00 2024-07-16 11:07:38 Outpatient R CRISTINA MEJIA CH[facility]INE [facility] [id number] [facility] 2024-07-16 10:00:00 2024-07-16 11:07:38 Office Visit Cristina Mejia 1.2.840.1 21905.1.1 3.104.2.7 .3.593345 .8 [id number] [facility] 2024-07-16 00:00:00 2024-07-16 00:00:00 Travel 1.2.840.1 71668.1.1 3.104.2.7 .3.534318 .8 1.2.840.114 350.1.13.10 4.2.7.3.698 084.8 [id number] [facility] 2024-07-09 13:00:00 2024-07-09 14:00:43 Outpatient TIANNA PINEDA [facility] [id number] [facility] 2024-07-09 13:00:00 2024-07-09 14:00:43 Office Visit Tianna Jin Ajay 1.2.840.1 74624.1.1 3.104.2.7 .3.717036 .8 [id number] [facility] 2024-07-08 00:00:00 2024-07-09 10:19:36 Lyleill Cristina Mejia 1.2.840.1 58265.1.1 3.104.2.7 .3.202080 .8 [id number] [facility] 2024-07-09 00:00:00 2024-07-09 00:00:00 Travel 1.2.840.1 51761.1.1 3.104.2.7 .3.241195 .8 1.2.840.114 350.1.13.10 4.2.7.3.698 084.8 [id number] [facility] 2024-07-08 00:00:00 2024-07-08 15:48:29 Multidisci plinary Conference Renata Mariel Marta 1.2.840.1 09677.1.1 3.104.2.7 .3.776148 .8 [id number] [facility] 2024-07-02 00:00:00 2024-07-02 08:26:24 Telephone Karma Bond 1.2.840.1 84951.1.1 3.104.2.7 .3.383283 .8 [id number] [facility] 2024-06-28 13:00:00 2024-06-28 13:00:00 Outpatient JESSICA CARMONA [facility] [id number] [facility] 2024-06-27 11:00:00 2024-06-27 11:33:28 Outpatient R WILLIAM MENODZA [facility] [id number] [facility] 2024-06-27 11:00:00 2024-06-27 11:33:28 Office Visit William Mendoza 1.2.840.1 83399.1.1 3.104.2.7 .3.475351 .8 [id number] [facility] 2024-06-27 00:00:00 2024-06-27 10:50:49 Telephone Mariana Purcell 1.2.840.1 79341.1.1 3.104.2.7 .3.545947 .8 [id number] [facility] 2024-06-27 00:00:00 2024-06-27 00:00:00 Travel 1.2.840.1 10082.1.1 3.104.2.7 .3.771021 .8 1.2.840.114 350.1.13.10 4.2.7.3.698 084.8 [id number] [facility] 2024-06-19 13:00:00 2024-06-19 13:30:00 Office Visit Dominique Schwab 1.2.840.1 79073.1.1 3.104.2.7 .3.481821 .8 [id number] [facility] 2024-06-19 13:00:00 2024-06-19 13:00:00 Outpatient DOMINIQUE HESS [facility] [id number] [facility] 2024-06-18 13:00:00 2024-06-18 13:49:20 Office Visit Yassine Neri 1.2.840.1 18715.1.1 3.104.2.7 .3.389641 .8 [id number] [facility] 2024-06-18 13:00:00 2024-06-18 13:00:00 Outpatient R YASSINE NERI RAJ [facility] [id number] [facility] 2024-06-18 00:00:00 2024-06-18 00:00:00 Scanned Documents Doctor Unassigned, Culver 1.2.840.1 84678.1.1 3.104.2.7 .3.587102 .8 [id number] [facility] 2024-06-18 00:00:00 2024-06-18 00:00:00 Travel 1.2.840.1 65958.1.1 3.104.2.7 .3.758751 .8 1.2.840.114 350.1.13.10 4.2.7.3.698 084.8 [id number] [facility] 2024-06-13 00:00:00 2024-06-14 17:25:53 Refill Cristina Mejia 1.2.840.1 73111.1.1 3.104.2.7 .3.863023 .8 [id number] [facility] 2024-05-23 00:00:00 2024-06-12 15:49:36 Telephone Cristina Mejia 1.2.840.1 36717.1.1 3.104.2.7 .3.332065 .8 [id number] [facility] 2024-06-11 00:00:00 2024-06-12 09:43:26 Telephone Yassine Neri 1.2.840.1 62612.1.1 3.104.2.7 .3.457585 .8 [id number] [facility] 2024-06-10 09:45:00 2024-06-10 10:00:58 Outpatient R ILIA BARNES [facility] [id number] [facility] 2024-06-10 09:45:00 2024-06-10 10:00:58 Office Visit Ilia Barnes 1.2.840.1 98822.1.1 3.104.2.7 .3.082890 .8 [id number] [facility] 2024-06-08 00:00:00 2024-06-10 09:40:15 Telephone Yassine Neri 1.2.840.1 74375.1.1 3.104.2.7 .3.245014 .8 [id number] [facility] 2024-06-10 00:00:00 2024-06-10 00:00:00 Travel 1.2.840.1 43006.1.1 3.104.2.7 .3.599289 .8 1.2.840.114 350.1.13.10 4.2.7.3.698 084.8 [id number] [facility] 2024-06-06 08:00:00 2024-06-06 23:59:00 Hospital Encounter Yassine Neri 1.2.840.1 59248.1.1 3.104.2.7 .3.122805 .8 [id number] [facility] 2024-06-06 05:22:00 2024-06-06 13:29:00 Outpatient R YASSINE NERI RAJ [facility] [id number] [facility] 2024-06-06 05:22:00 2024-06-06 13:29:00 Hospital Encounter Yassine Neri 1.2.840.1 93707.1.1 3.104.2.7 .3.174963 .8 [id number] [facility] 2024-06-06 07:45:00 2024-06-06 10:55:00 Surgery Yassine Neir 1.2.840.1 07415.1.1 3.104.2.7 .3.650642 .8 [id number] [facility] 2024-06-06 08:06:00 2024-06-06 10:52:00 Anesthesia Event Ashu Henao Ryan 1.2.840.1 66632.1.1 3.104.2.7 .3.576885 .8 [id number] [facility] 2024-05-30 00:00:00 2024-05-30 15:07:30 Cristina Lawrence 1.2.840.1 56558.1.1 3.104.2.7 .3.876550 .8 [id number] [facility] 2024-05-30 00:00:00 2024-05-30 00:00:00 Travel 1.2.840.1 85779.1.1 3.104.2.7 .3.755918 .8 1.2.840.114 350.1.13.10 4.2.7.3.698 084.8 [id number] [facility] 2024-05-24 00:00:00 2024-05-27 16:42:17 Telephone Mariana Purcell 1.2.840.1 27882.1.1 3.104.2.7 .3.164955 .8 [id number] [facility] 2024-05-22 00:00:00 2024-05-23 09:43:26 Telephone Mariana Purcell 1.2.840.1 51319.1.1 3.104.2.7 .3.100713 .8 [id number] [facility] 2024-05-21 00:00:00 2024-05-21 10:15:02 Telephone Mariana Purcell 1.2.840.1 90339.1.1 3.104.2.7 .3.115306 .8 [id number] [facility] 2024-05-16 11:15:00 2024-05-16 11:37:25 Heart Surgeon Visit Leighann Purcelle Dheeraj Rina, Ang - Db 1.2.840.1 66700.1.1 3.104.2.7 .3.105809 .8 [id number] [facility] 2024-05-16 10:30:00 2024-05-16 11:02:38 Outpatient R MARIANA PURCELL [facility] [id number] [facility] 2024-05-16 10:30:00 2024-05-16 11:02:38 Office Visit Mariana Purcell 1.2.840.1 10831.1.1 3.104.2.7 .3.081811 .8 [id number] [facility] 2024-05-16 00:00:00 2024-05-16 00:00:00 Travel 1.2.840.1 35052.1.1 3.104.2.7 .3.597087 .8 1.2.840.114 350.1.13.10 4.2.7.3.698 084.8 [id number] [facility] 2024-05-02 00:00:00 2024-05-02 14:27:17 Telephone Cristina Mejia 1.2.840.1 11035.1.1 3.104.2.7 .3.958235 .8 [id number] [facility] 2024-04-30 14:45:00 2024-04-30 15:30:00 Office Visit Yassine Neri 1.2.840.1 16202.1.1 3.104.2.7 .3.992780 .8 [id number] [facility] 2024-04-30 14:45:00 2024-04-30 14:45:00 Outpatient R YASSINE NERI RAJ [facility] [id number] [facility] 2024-04-26 00:00:00 2024-04-26 14:26:03 Telephone Cristina Mejia 1.2.840.1 33429.1.1 3.104.2.7 .3.100449 .8 [id number] [facility] 2024-04-23 09:58:27 2024-04-23 23:59:00 Outpatient R CRISTINA MEJIA [facility] [id number] [facility] 2024-04-23 09:58:27 2024-04-23 23:59:00 Hospital Encounter Cristina Mejia 1.2.840.1 39461.1.1 3.104.2.7 .3.447768 .8 [id number] [facility] 2024-04-09 09:13:58 2024-04-09 23:59:00 Outpatient R CRISTINA MEJIA [facility] [id number] [facility] 2024-04-09 09:13:58 2024-04-09 23:59:00 Hospital Encounter Cristina Mejia [facility] 1.2.840.114 350.1.13.10 4.2.7.2.686 [id number] [facility] 2024-04-05 10:20:00 2024-04-05 11:15:49 Outpatient R CRISTINA MEJIA [facility] [id number] [facility] 2024-04-05 10:20:00 2024-04-05 11:15:49 Office Visit Kley, [facility] [place] [facility] 1.840.114 350.1.13.10 4.2.7.2.686 [id number] 044 [id number] [facility] 2024-03-28 00:00:00 2024-03-28 16:54:06 Refill Roberto [facility] BUILD[facility] 1.840.114 350.1.13.10 4.2.7.2.686 [id number] 044 [id number] [facility] 2024-03-26 12:56:39 2024-03-26 23:59:00 Hospital Encounter Roberto [facility] 1.84.114 350.1.13.10 4.2.7.2.686 [id number] [facility] 2024-03-26 12:55:52 2024-03-26 12:55:52 [facility] [id number] [facility] 2024-03-26 12:55:52 2024-03-26 12:55:52 Hospital Encounter Roberto [facility] Emergency Department [facility] 1.840.114 350.1.13.10 4.2.7.2.686 [id number] [facility] 2024-03-26 00:00:00 2024-03-26 00:00:00 Outpatient R CRISTINA MEJIA [facility] [id number] [facility] 2024-03-20 11:30:00 2024-03-20 11:30:00 Outpatient R DOMINIQUE SCHWAB [facility] [id number] [facility] 2024-03-14 00:00:00 2024-03-14 14:46:32 Telephone Mariana Purcell [facility] 1.840.114 350.1.13.10 4.2.7.2.686 [id number] 044 [id number] [facility] 2024-03-06 13:19:19 2024-03-06 23:59:00 Outpatient R MARIANA PURCELL [facility] [id number] [facility] 2024-03-06 13:19:19 2024-03-06 23:59:00 Hospital Encounter [facility] 1.2.840.114 350.1.13.10 4.2.7.2.686 [id number] [facility] 2024-03-06 13:19:18 2024-03-06 23:59:00 Hospital Encounter Mariana Purcell [facility] 1.2.840.114 350.1.13.10 4.2.7.2.686 [id number] [facility] 2024-03-06 13:00:00 2024-03-06 13:20:50 Office Visit Mariana Purcell [facility] 1.2.840.114 350.1.13.10 4.2.7.2.686 [id number] 044 [id number] [facility] 2024-02-28 00:00:00 2024-02-29 12:36:36 Telephone Roberto [facility] 1.2.840.114 350.1.13.10 4.2.7.2.686 [id number] 044 [id number] [facility] 2024-02-26 00:00:00 2024-02-26 13:44:21 Telephone Roberto [facility] 1.2.840.114 350.1.13.10 4.2.7.2.686 [id number] 044 [id number] [facility] 2024-02-26 00:00:00 2024-02-26 10:54:42 Telephone Kelsey Salgado BUILDING 1.2.840.114 350.1.13.10 4.2.7.2.686 [id number] 080 [id number] [facility] 2024-02-26 00:00:00 2024-02-26 09:08:24 [facility] 1.2.840.114 350.1.13.10 4.2.7.2.686 [id number] 044 [id number] [facility] 2024-02-13 00:00:00 2024-02-21 16:24:31 Telephone Kelsey Salgado BUILDING 1.2.840.114 350.1.13.10 4.2.7.2.686 [id number] 080 [id number] [facility] 2024-02-19 12:33:51 2024-02-19 23:59:00 Outpatient R DOMINIQUE SCHWAB [facility] [id number] [facility] 2024-02-19 12:33:51 2024-02-19 23:59:00 Hospital Encounter Dominique Schwab [facility] 1.2840.114 350.1.13.10 4.2.7.2.686 [id number] [facility] 2024-02-15 00:00:00 2024-02-15 15:49:19 Telephone Dominique Schwab [facility] 1.2.840.114 350.1.13.10 4.2.7.2.686 [id number] [id number] [facility] 2024-02-13 14:00:00 2024-02-13 14:00:00 Outpatient R [facility] [id number] [facility] 2024-02-06 10:15:00 2024-02-06 10:37:13 Outpatient R CRISTINA MEJIA [facility] [id number] [facility] 2024-02-06 10:15:00 2024-02-06 10:30:00 Heart Surgeon Visit Lab, Chris Mejia [facility] 1.2.840.114 350.1.13.10 4.2.7.2.686 [id number] [facility] 2024-02-06 10:00:00 2024-02-06 10:00:00 Outpatient R FIORELLA CORTEZ [facility] [id number] [facility] 2024-02-06 08:30:00 2024-02-06 08:30:00 Outpatient R TRAY ABBOTT [facility] [id number] [facility] 2024-01-04 09:30:00 2024-01-04 10:04:30 Outpatient R SHEN MEJIAINE ROBERTO [facility] [id number] [facility] 2024-01-04 09:30:00 2024-01-04 10:04:30 Heart Surgeon Visit Lab, Chris Mejia [facility]?KENYA [facility] OFFICE BUILDING 1.2.840.114 350.1.13.10 4.2.7.2.686 [id number] [facility] 2024-01-04 08:40:00 2024-01-04 09:28:22 Office Visit Radhacarola [facility] ANDERSON?KENYA [facility] OFF[facility] BUILDING 1.2.840.114 350.1.13.10 4.2.7.2.686 [id number] [id number] [facility] 2024-01-02 13:00:00 2024-01-02 15:41:16 Outpatient R TIANNA JIN [facility] [id number] [facility] 2024-01-02 13:00:00 2024-01-02 15:41:16 Office Visit [facility] 1.2840.114 350.1.13.10 4.2.7.2.686 [id number] 080 [id number] [facility] 2024-01-01 00:00:00 2024-01-01 00:00:00 Case Management [facility] 1.2.840.114 350.1.13.10 4.2.7.2.686 [id number] [facility] 2023-12-27 00:00:00 2023-12-27 00:00:00 Letter (Out) [facility] 1.2.840.114 350.1.13.10 4.2.7.2.686 [id number] [facility] 2023-12-04 10:00:00 2023-12-04 13:03:54 Outpatient ILIA THAKKAR [facility] [id number] [facility] 2023-12-04 10:00:00 2023-12-04 13:03:54 Office Visit Ilia Barnes [facility] 1.2.840.114 350.1.13.10 4.2.7.2.686 [id number] 044 [id number] [facility] 2023-12-04 00:00:00 2023-12-04 00:00:00 Telephone Dominique Schwab [facility] 1.2.840.114 350.1.13.10 4.2.7.2.686 [id number] [id number] [facility] 2023-11-17 09:30:00 2023-11-17 09:30:00 Outpatient MARIANA LEDEZMA [facility] [id number] [facility] 2023-10-27 00:00:00 2023-10-27 00:00:00 Telephone Cristina Mejia [facility]?KENYA [facility] MED[facility] OFF[facility] BUILDING 1.84.114 350.1.13.10 4.2.7.2.686 [id number] [id number] [facility] 2023-10-26 00:00:00 2023-10-26 00:00:00 Orders Only Doctor Unassigned, Culver [facility] 1..114 350.1.13.10 4.2.7.2.686 [id number] [facility] 2023-10-24 00:00:00 2023-10-24 00:00:00 Telephone Dominique Schwab [facility] 1.114 350.1.13.10 4.2.7.2.686 [id number] [id number] [facility] 2023-10-19 13:30:00 2023-10-19 13:45:00 Office Visit Cameron Ilia [facility] 1.84.114 350.1.13.10 4.2.7.2.686 [id number] 044 [id number] [facility] 2023-10-19 13:30:00 2023-10-19 13:30:00 Outpatient R ILIA BARNES [facility] [id number] [facility] 2023-10-17 09:31:00 2023-10-17 13:03:00 Outpatient R DOMINIQUE SCHWAB [facility] G[facility] [id number] [facility] 2023-10-17 09:31:00 2023-10-17 13:03:00 Hospital Encounter Dominique Schwab [facility] 1.284.114 350.1.13.10 4.2.7.2.686 [id number] [facility] 2023-10-17 10:30:00 2023-10-17 11:30:00 Surgery Dominique Schwab [facility] 1.2.840.114 350.1.13.10 4.2.7.2.686 [id number] [facility] 2023-10-17 00:00:00 2023-10-17 00:00:00 Orders Only Doctor Unassigned, [place] 1.840.114 350.1.13.10 4.2.7.2.686 [id number] [facility] 2023-10-11 00:00:00 2023-10-11 00:00:00 [facility] 1.114 350.1.13.10 4.2.7.2.686 [id number] [facility] 2023-10-10 00:00:00 2023-10-10 00:00:00 Telephone Dominique Schwab [facility] 1.114 350.1.13.10 4.2.7.2.686 [id number] [facility] 2023-10-06 00:00:00 2023-10-06 00:00:00 Telephone Roberto [facility] [place] [facility] 1.84114 350.1.13.10 4.2.7.2.686 [id number] [facility] 2023-10-05 15:00:00 2023-10-05 15:03:38 Heart Surgeon Visit Lab, Mary Anne Rivera [facility] 1.114 350.1.13.10 4.2.7.2.686 [id number] [facility] 2023-10-05 14:00:00 2023-10-05 14:53:33 Outpatient R MARY ANNE BOLANOS [facility] [id number] [facility] 2023-10-05 14:00:00 2023-10-05 14:53:33 Office Visit Mary Anne Bolanos [facility] 1..840.114 350.1.13.10 4.2.7.2.686 [id number] [facility] 2023-10-05 09:20:00 2023-10-05 09:20:00 Outpatient CRISTINA MCMAHON [facility] [place] [id number] [facility] 2023-08-24 10:57:17 2023-08-24 23:59:00 Outpatient R CRISTINA MEJIA [facility] [place] [id number] [facility] 2023-08-24 10:57:17 2023-08-24 23:59:00 Hospital Encounter Cristina Mejia [facility] 1.840.114 350.1.13.10 4.2.7.2.686 [id number] [facility] 2023-08-16 16:00:00 2023-08-16 16:30:00 Office Visit Dominique Schwab [facility] 1.840.114 350.1.13.10 4.2.7.2.686 [id number] [facility] 2023-08-16 16:00:00 2023-08-16 16:00:00 Outpatient DOMINIQUE HESS [facility] [id number] [facility] 2023-08-01 08:30:00 2023-08-01 08:57:21 Outpatient R CRISTINA MEJIA [facility] [place] [id number] [facility] 2023-08-01 08:30:00 2023-08-01 08:57:21 Heart Surgeon Visit Lab, Chris Mejia [facility] [place]?[facility] 1.840.114 350.1.13.10 4.2.7.2.686 [id number] [facility] 2023-07-31 09:40:00 2023-07-31 11:12:10 Office Visit Roberto Cristina [facility] 1.2840.114 350.1.13.10 4.2.7.2.686 [id number] [facility] 2023-07-31 09:40:00 2023-07-31 11:12:10 Outpatient R RADHACarolaCRISTINA [facility] [place] [id number] [facility] 2023-07-31 00:00:00 2023-07-31 00:00:00 Orders Only Doctor Unassigned, [place] 1.840.114 350.1.13.10 4.2.7.2.686 [id number] [facility] 2023-07-24 00:00:00 2023-07-24 00:00:00 Telephone Roberto [facility] [place]?[facility] 1.20.114 350.1.13.10 4.2.7.2.686 [id number] [facility] 2023-07-23 00:00:00 2023-07-23 00:00:00 Refill Mary Anne Bolanos [facility] MEDICAL OFFICE BUILDING 1.2840.114 350.1.13.10 4.2.7.2.686 [id number] [id number] [facility] 2023-07-03 00:00:00 2023-07-03 00:00:00 Refill [facility] ANDERSON?[facility] MEDICAL OFFICE BUILDING 1.2840.114 350.1.13.10 4.2.7.2.686 [id number] [id number] [facility] 2023-07-02 00:00:00 2023-07-02 00:00:00 Outpatient GC_GCBZW_Ka digerman_S PRIV [facility] [id number] [facility] 2023-06-22 00:00:00 2023-06-22 00:00:00 Telephone Cristina Mejia [facility] OFF[facility] BUILDING 1.2.840.114 350.1.13.10 4.2.7.2.686 [id number] 044 [id number] [facility] 2023-06-20 00:00:00 2023-06-20 00:00:00 Telephone Reji [facility] BUILDING 1.2.840.114 350.1.13.10 4.2.7.2.686 [id number] [facility] 2023-06-12 00:00:00 2023-06-12 00:00:00 Telephone Reji [facility] BUILDING 1.2.840.114 350.1.13.10 4.2.7.2.686 [id number] [facility] 2023-06-08 00:00:00 2023-06-08 00:00:00 Telephone Reji [facility] BUILDING 1.2.840.114 350.1.13.10 4.2.7.2.686 [id number] 059 [id number] [facility] 2023-06-07 12:57:19 2023-06-07 23:59:[address] [facility] [id number] [facility] 2023-06-07 12:57:19 2023-06-07 23:59:00 Hospital Encounter Reji [facility] BUILDING 1.2.840.114 350.1.13.10 4.2.7.2.686 [id number] [facility] 2023-06-06 00:00:00 2023-06-06 00:00:00 Telephone [facility] ANDERSON?[facility] 1.284.114 350.1.13.10 4.2.7.2.686 [id number] 044 [id number] [facility] 2023-05-30 00:00:00 2023-05-30 00:00:00 Telephone [facility] ANDERSON?[facility] MEDICAL OFFICE BUILDING 1.84.114 350.1.13.10 4.2.7.2.686 [id number] 044 [id number] [facility] 2023-05-29 10:20:00 2023-05-29 10:59:[address] [facility] [id number] [facility] 2023-05-29 10:20:00 2023-05-29 10:59:16 [facility] 1.84.114 350.1.13.10 4.2.7.2.686 [id number] [id number] [facility] 2023-05-25 00:00:00 2023-05-25 00:00:00 Orders Only Doctor Unassigned, [facility] 1..114 350.1.13.10 4.2.7.2.686 [id number] [facility] 2023-05-19 00:00:00 2023-05-19 00:00:00 Refill [facility] ANDERSON?[facility] MEDICAL OFFICE BUILDING 1.84.114 350.1.13.10 4.2.7.2.686 [id number] 044 [id number] [facility] 2023-05-19 00:00:00 2023-05-19 00:00:00 Telephone [facility] ANDERSON?[facility] BUILDING 1..840.114 350.1.13.10 4.2.7.2.686 [id number] 044 [id number] [facility] 2023-05-18 15:40:00 2023-05-18 16:11:52 Outpatient R CRISTINA MEJIA [facility] [id number] [facility] 2023-05-18 15:40:00 2023-05-18 16:11:52 Office Visit Roberto [facility] ANDERSON?KENYA [facility] MEDICAL OFFICE BUILDING 1.840.114 350.1.13.10 4.2.7.2.686 [id number] 044 [id number] [facility] 2023-05-04 00:00:00 2023-05-04 00:00:00 Orders Only Doctor Unassigned, [facility] 1.840.114 350.1.13.10 4.2.7.2.686 [id number] [id number] [facility] 2023-04-26 00:00:00 2023-04-26 00:00:00 Refill [facility] ANDERSON?KENYA [facility] MEDICAL OFFICE BUILDING 1..840.114 350.1.13.10 4.2.7.2.686 [id number] 044 [id number] [facility] 2023-04-25 09:20:00 2023-04-25 10:18:47 Outpatient R CRISTINA MEJIA [facility] [id number] [facility] 2023-04-25 09:20:00 2023-04-25 10:18:47 Office Visit [facility] ANDERSON?[facility] BUILD[facility] 1..840.114 350.1.13.10 4.2.7.2.686 [id number] 044 [id number] [facility] 2023-04-21 00:00:00 2023-04-21 00:00:00 [facility]?KENYA [facility] MEDICAL OFFICE BUILDING 1.2.840.114 350.1.13.10 4.2.7.2.686 [id number] 044 [id number] [facility] 2023-01-25 00:00:00 2023-01-25 00:00:00 [facility]phone [facility] MEDICAL OFFICE BUILDING 1.2.840.114 350.1.13.10 4.2.7.2.686 [id number] 044 [id number] [facility] 2023-01-19 00:00:00 2023-01-19 00:00:00 Telephone [facility] MEDICAL OFFICE BUILDING 1.2.840.114 350.1.13.10 4.2.7.2.686 [id number] 044 [id number] [facility] 2023-01-18 00:00:00 2023-01-18 00:00:00 Telephone [facility] ANDERSON?[facility] MEDICAL OFFICE BUILDING 1.2.840.114 350.1.13.10 4.2.7.2.686 [id number] 044 [id number] [facility] 2023-01-10 00:00:00 2023-01-10 00:00:00 Telephone [facility] MEDICAL OFFICE BUILDING 1.2.840.114 350.1.13.10 4.2.7.2.686 [id number] 044 [id number] [facility] 2023-01-09 09:30:00 2023-01-09 09:45:00 Heart Surgeon Visit Lab, Chris Cruz [facility] MEDICAL OFFICE BUILDING 1.2.840.114 350.1.13.10 4.2.7.2.686 [id number] [facility] 2023-01-09 09:30:00 2023-01-09 09:30:00 Outpatient R CRISTINA MEJIA ROBERTO [facility] [id number] [facility] 2023-01-09 00:00:00 2023-01-09 00:00:00 Telephone [facility] ANDERSON?[facility] BUILDING 1..840.114 350.1.13.10 4.2.7.2.686 [id number] 044 [id number] [facility] 2022-12-29 11:20:00 2022-12-29 12:00:00 [facility] MEDICAL OFFICE BUILDING 1..840.114 350.1.13.10 4.2.7.2.686 [id number] [facility] 2022-12-29 11:20:00 2022-12-29 11:20:00 Outpatient R CRISTINA MEJIA [facility] [id number] [facility] 2022-12-29 00:00:00 2022-12-29 00:00:00 Orders Only Doctor Unassigned, [facility] 1..840.114 350.1.13.10 4.2.7.2.686 [id number] [facility] 2022-12-26 08:00:00 2022-12-26 08:00:00 Out[facility] [id number] [facility] 2022-12-19 00:00:00 2022-12-19 00:00:00 Telephone Magdalena [facility] BUILDING 1..840.114 350.1.13.10 4.2.7.2.686 [id number] [facility] 2022-12-06 00:00:00 2022-12-06 00:00:00 Prep For Surgery Magdalena [facility] BUILDING 1.840.114 350.1.13.10 4.2.7.2.686 [id number] [facility] 2022-11-21 14:45:00 2022-11-21 15:15:00 Office Visit Minh Sherman [facility] 1..840.114 350.1.13.10 4.2.7.2.686 [id number] [facility] 2022-11-21 14:45:00 2022-11-21 14:45:00 [facility] [id number] [facility] 2022-11-21 13:00:00 2022-11-21 13:00:00 Outpatient R ROSI ALEXANDRE [facility] [id number] [facility] 2022-11-09 13:15:00 2022-11-09 13:15:00 Outpatient R MINH SHERMAN [facility] [id number] [facility] 2022-10-25 09:20:00 2022-10-25 09:51:33 Outpatient R CRISTINA MEJIA [facility] [id number] [facility] 2022-10-25 09:20:00 2022-10-25 09:51:33 Office Visit Roberto [facility] MED[facility] OFF[facility] BUILDING 1..840.114 350.1.13.10 4.2.7.2.686 [id number] [facility] 2022-10-17 09:40:00 2022-10-17 09:40:00 Outpatient R ROBERTO [facility] [id number] [facility] 2022-10-03 13:45:00 2022-10-03 14:00:00 Heart Surgeon Visit Lab, Tray Alicea [facility]?KENYA [facility] MEDICAL OFFICE BUILDING 1..840.114 350.1.13.10 4.2.7.2.686 [id number] [facility] 2022-10-03 13:45:00 2022-10-03 13:45:00 Outpatient TRAY LUGO [facility] [id number] [facility] 2022-09-29 07:30:00 2022-09-29 07:47:32 [facility] Sur[facility] MEDICAL OFFICE BUILDING 1.2.840.114 350.1.13.10 4.2.7.2.686 [id number] [facility] 2022-09-29 07:30:00 2022-09-29 07:30:00 Outpatient Radha MEJIA CRISTINA [facility] [id number] [facility] 2022-09-23 11:00:00 2022-09-23 11:37:[address] [facility] [id number] [facility] 2022-09-23 11:00:00 2022-09-23 11:37:19 Office Visit Roberto [facility] MEDICAL OFFICE BUILDING 1.2.840.114 350.1.13.10 4.2.7.2.686 [id number] [id number] [facility] 2022-09-08 07:45:00 2022-09-08 07:45:33 Heart Surgeon Visit Lab, Chris Mejia [facility] MEDICAL OFFICE BUILDING 1.2.840.114 350.1.13.10 4.2.7.2.686 [id number] [facility] 2022-09-08 07:45:00 2022-09-08 07:45:00 Outpatient CRISTINA MCMAHON [facility] [id number] [facility] 2022-08-15 10:00:00 2022-08-15 10:13:25 Outpatient Radha MEJIA [facility] [id number] [facility] 2022-08-15 10:00:00 2022-08-15 10:13:25 Office Visit Roberto [facility] MEDICAL OFFICE BUILDING 1..840.114 350.1.13.10 4.2.7.2.686 [id number] [facility] 2022-08-12 10:40:00 2022-08-12 10:40:00 Outpatient R ROBERTO [facility] [id number] [facility] 2022-07-25 09:00:00 2022-07-25 09:15:00 Heart Surgeon Visit Lab, Chris Cruz Roberto [facility] [place] [facility] MEDICAL OFFICE BUILDING 1..840.114 350.1.13.10 4.2.7.2.686 [id number] [facility] 2022-07-25 09:00:00 2022-07-25 09:00:00 Outpatient R ROBERTO [facility] [id number] [facility] 2022-07-22 08:20:00 2022-07-22 09:02:30 Outpatient R CRISTINA MEJIA [facility] [id number] [facility] 2022-07-22 08:20:00 2022-07-22 09:02:30 Office Visit Roberto [facility] [place] [facility] MEDICAL OFFICE BUILDING 1..840.114 350.1.13.10 4.2.7.2.686 [id number] [facility] 2022-07-22 00:00:00 2022-07-22 00:00:00 Orders Only Doctor Unassigned, [facility] 1..840.114 350.1.13.10 4.2.7.2.686 [id number] [facility] 2022-07-20 13:00:00 2022-07-20 13:00:00 Outpatient MARIANA LEDEZMA [facility] [id number] [facility] 2022-06-24 08:00:00 2022-06-24 08:00:00 Outpatient ROBERT KAMARA [id number] [facility] 2022-06-23 14:15:00 2022-06-23 14:15:00 Outpatient ROBERT KAMARA SONIA [id number] [facility] 2022-03-03 10:45:00 2022-03-03 10:45:00 Outpatient [facility] [id number] [facility] 2020-10-06 09:00:00 2020-10-06 09:00:00 Outpatient RENATO ROB [facility] [id number] [facility] 2020-10-06 09:00:00 2020-10-06 09:00:00 Outpatient Radha GROSS ROB [facility] [id number] [facility] 2020-09-29 00:00:00 2020-09-29 00:00:00 Orders Only Doctor Unassigned, [facility] 1.840.114 350.1.13.10 4.2.7.2.686 [id number] [id number] 2020-09-29 00:00:00 2020-09-29 00:00:00 Orders Only Doctor Unassigned, [facility] 1.840.114 350.1.13.10 4.2.7.2.686 [id number] [facility] 2016-08-04 00:00:00 2016-08-04 00:00:00 Atiya Enriquez [facility] OFFICE BUILDING ONE 1..840.114 350.1.13.10 4.2.7.2.686 [id number] 044 [id number] [facility] Results Test Description Test Time Test Comments Results Resul t Comments Source Dexa Axial (hip and spine) 2024-12-03 0 18:06:26 EXAM: DEXA AXIAL (HIP AND SPINE) HISTORY: 74 years ?Female; osteoporosis screening. COMPARISON: None available. TECHNIQUE: Bone densitometry of the lumbar spine and right hip wasperformed on a [employer] system. ? ? FINDINGS: Lumbar spine L1-L4: T-score -2.7. ?The L2 T score is -3.2. Bone mineraldensity: 0.856 g/cm^2. These values are likely artifactually elevated dueto sclerotic degenerative disease at L4-L5. Right Femoral Neck: T-score -1.8. ?Bone mineral density: 0.764 g/cm^2. Right Total Femur: T-score -1.6. ?Bone mineral density: 0.806 g/cm^2. [facility]. METABOLIC PANEL (48395)2024-10-23 18:05:40* Test Item Value Reference Range Interpretation Comme nts NA (test code = 6073244259) 133 mmol/L 135-145 L K (test code = 9789393371) 4.2 mmol/L 3.5-5.0 CL (test code = 2567136865) 101 mmol/L 98-108 CO2 TOTAL (test code = 6253210473) 26 mmol/L 23-31 AGAP (test code = 4502239699) 6 2-16 BUN (test code = 4445815997) 12 mg/dL 7-23 GLUCOSE (test code = 6708194707) 105 mg/dL 70-110 CREATININE (test code = 2160-0) 0.47 mg/dL 0.50-1.04 L TOTAL BILI (test code = 1739925151) 0.5 mg/dL 0.1-1.1 CALCIUM (test code = 0037042846) 9.5 mg/dL 8.6-10.6 T PROTEIN (test code = 9417159965) 7.9 g/dL 6.3-8.2 ALBUMIN (test code = 4857737398) 4.7 g/dL 3.5-5.0 ALK PHOS (test code = 8484813137) 48 U/L 34-122 ALTv (test code = 1742-6) 22 U/L 5-35 AST(SGOT) (test code = 2072111940) 27 U/L 13-40 eGFR (test code = 07435-0) 100.7 mL/min/1.73m2 CKD-EPI eGFR (2020). Assuming creatinine has been stable day-to-day for at least three months, the eGFR indicates Category G1 (>= 90 mL/min/1.73 m2) Lab Interpretation (test code = 29299-3) [facility]normal [facility], [id number] 18:05:20* Test Item Value Reference Range Interpretation Comme nts LIPASE (test code = 3539397701) 233 U/L 0-220 H Lab Interpretation (test cod e = 67051-8) Abnormal [facility]andCBC WITH [id number] 17:54:43* Test Item Value Reference Range Interpretation Comme nts WBC (test code = 6690-2) 6.06 4.30-11.10 RBC (test code = 789-8) 4.13 3.93-5.25 HGB (test code = 718-7) 13.1 g/dL 11.6-15.0 HCT (test code = 4544-3) 39.7 % 35.7-45.2 MCV (test code = 787-2) 96.1 fL 80.6-95.5 H MCH (test code = 785-6) 31.7 pg 25.9-32.8 MCHC (test code = 786-4) 33.0 g/dL 31.6-35.1 RDW-SD (test code = 31401-7) 45.3 fL 39.0-49.9 RDW-CV (test code = 788-0) 12.7 % 12.0-15.5 PLT (test code = 777-3) 199 166-358 MPV (test code = 13982-9) 11.6 fL 9.5-12.9 NRBC/100 WBC (test code = 2827411770) 0.0 0.0-10.0 NRBC x10^3 (test code = 7504442061) See_Comment [Automated messa ge] The system which generated this result transmitted reference range: 10*3/?L. The reference range was not used to interpret this result as normal/abnormal. GRAN MAT (NEUT) % (test code = 770-8) 66.5 % IMM GRAN % (test code = 2203064383) 0.20 % LYMPH % (test code = 736-9) 20.6 % MONO % (test code = 5905-5) 10.1 % EOS % (test code = 713-8) 2.3 % BASO % (test code = 706-2) 0.3 % GRAN MAT x10^3(ANC) (test code = 9469761275) 4.03 10*3/uL 1.88-7.09 IMM GRAN x10^3 (test code = 2893636446) 0.00-0.06 LYMPH x10^3 (test code = 731-0) 1.25 10*3/uL 1.32-3.29 L MONO x10^3 (test code = 742-7) 0.61 10*3/uL 0.33-0.92 EOS x10^3 (test code = 711-2) 0.14 10*3/uL 0.03-0.39 BASO x10^3 (test code = 704-7) 0.01-0.07 Lab Interpretation (test code = 65668-5) Abnormal [facility]and[facility] Chest [id number] 17:45:04HISTORY: Cardiac palpitations. TECHNIQUE: Portable AP view of the chest is obtained. Comparison made with12/10/2014 study. FINDINGS: No acute pneumonia. No pneumothorax or pleural effusion orpulmonary congestion detected. Cardiac size is within normal limits. CONCLUSIONS: No signs of acute cardiopulmonary disease. [facility] [id number] 19:23:00* Test Item Value Reference Range Interpretation Comme nts Treatment Site (test code = 5130) Right partial breast Course Number (test code = 5131) 1 Prescribed Fractional Dose (test code = 5132) 267 cGray Prescribed Total Dose (test code = 5133) 4005 cGray Actual Fractions Delivered (test code = 5134) 15 Prescription Pattern Comment (test code = 5135) kV MV verify kV or MV weekly Actual Session Delivered Dose (test code = 5136) 267 cGray Actual Total Dose (test code = 5137) 4005 cGray Prescribed Technique (test code = 5138) 3-D plan Elapsed Days (test code = 5143) 28 Start Date (test code = 5144) 09/18/2024 Last Date (test code = 514) 10/16/2024 Prescribed Number of Fractions (test code = 5146) 15 [facility] ONC MSQ TREATMENT [id number] 19:10:00* Test Item Value Reference Range Interpretation Comme [facility] Treatment Site (test code = 5130) Right partial breast Course Number (test code = 5131) 1 Prescribed Fractional Dose (test code = 5132) 267 cGray Prescribed Total Dose (test code = 5133) 4005 cGray Actual Fractions Delivered (test code = 5134) 14 Prescription Pattern Comment (test code = 5135) kV MV verify kV or MV weekly Actual Session Delivered Dose (test code = 5136) 267 cGray Actual Total Dose (test code = 5137) 3738 cGray Prescribed Technique (test code = 5138) 3-D plan Elapsed Days (test code = 5143) 27 Start Date (test code = 5144) 09/18/2024 Last Date (test code = 514) 10/15/2024 Prescribed Number of Fractions (test code = 5146) 15 [facility] ONC MSQ TREATMENT [id number] 19:17:00* Test Item Value Reference Range Interpretation Comme [facility] Treatment Site (test code = 5130) Right partial breast Course Number (test code = 5131) 1 Prescribed Fractional Dose (test code = 5132) 267 cGray Prescribed Total Dose (test code = 5133) 4005 cGray Actual Fractions Delivered (test code = 5134) 13 Prescription Pattern Comment (test code = 5135) kV MV verify kV or MV weekly Actual Session Delivered Dose (test code = 5136) 267 cGray Actual Total Dose (test code = 5137) 3471 cGray Prescribed Technique (test code = 5138) 3-D plan Elapsed Days (test code = 5143) 26 Start Date (test code = 5144) 09/18/2024 Last Date (test code = 5145) 10/14/2024 Prescribed Number of Fractions (test code = 5146) 15 [facility] ONC MSQ TREATMENT [id number] 19:15:00* Test Item Value Reference Range Interpretation Comme [facility] Treatment Site (test code = 5130) Right partial breast Course Number (test code = 5131) 1 Prescribed Fractional Dose (test code = 5132) 267 cGray Prescribed Total Dose (test code = 5133) 4005 cGray Actual Fractions Delivered (test code = 5134) 12 Prescription Pattern Comment (test code = 5135) kV MV verify kV or MV weekly Actual Session Delivered Dose (test code = 5136) 267 cGray Actual Total Dose (test code = 5137) 3204 cGray Prescribed Technique (test code = 5138) 3-D plan Elapsed Days (test code = 5143) 22 Start Date (test code = 5144) 09/18/2024 Last Date (test code = 5145) 10/10/2024 Prescribed Number of Fractions (test code = 5146) 15 [facility] ONC MSQ TREATMENT [id number] 19:17:00* Test Item Value Reference Range Interpretation Comme [facility] Treatment Site (test code = 5130) Right partial breast Course Number (test code = 5131) 1 Prescribed Fractional Dose (test code = 5132) 267 cGray Prescribed Total Dose (test code = 5133) 4005 cGray Actual Fractions Delivered (test code = 5134) 11 Prescription Pattern Comment (test code = 5135) kV MV verify kV or MV weekly Actual Session Delivered Dose (test code = 5136) 267 cGray Actual Total Dose (test code = 5137) 2937 cGray Prescribed Technique (test code = 5138) 3-D plan Elapsed Days (test code = 5143) 20 Start Date (test code = 5144) 09/18/2024 Last Date (test code = 514) 10/08/2024 Prescribed Number of Fractions (test code = 5146) 15 [facility] ONC MSQ TREATMENT [id number] 19:06:00* Test Item Value Reference Range Interpretation Comme [facility] Treatment Site (test code = 5130) Right partial breast Course Number (test code = 5131) 1 Prescribed Fractional Dose (test code = 5132) 267 cGray Prescribed Total Dose (test code = 5133) 4005 cGray Actual Fractions Delivered (test code = 5134) 10 Prescription Pattern Comment (test code = 5135) kV MV verify kV or MV weekly Actual Session Delivered Dose (test code = 5136) 267 cGray Actual Total Dose (test code = 5137) 2670 cGray Prescribed Technique (test code = 5138) 3-D plan Elapsed Days (test code = 5143) 19 Start Date (test code = 5144) 09/18/2024 Last Date (test code = 514) 10/07/2024 Prescribed Number of Fractions (test code = 5146) 15 [facility] ONC MSQ TREATMENT [id number] 19:14:00* Test Item Value Reference Range Interpretation Comme [facility] Treatment Site (test code = 5130) Right partial breast Course Number (test code = 5131) 1 Prescribed Fractional Dose (test code = 5132) 267 cGray Prescribed Total Dose (test code = 5133) 4005 cGray Actual Fractions Delivered (test code = 5134) 9 Prescription Pattern Comment (test code = 5135) kV MV verify kV or MV weekly Actual Session Delivered Dose (test code = 5136) 267 cGray Actual Total Dose (test code = 5137) 2403 cGray Prescribed Technique (test code = 5138) 3-D plan Elapsed Days (test code = 5143) 16 Start Date (test code = 5144) 09/18/2024 Last Date (test code = 514) 10/04/2024 Prescribed Number of Fractions (test code = 5146) 15 [facility] ONC MSQ TREATMENT [id number] 19:18:00* Test Item Value Reference Range Interpretation Comme [facility] Treatment Site (test code = 5130) Right partial breast Course Number (test code = 5131) 1 Prescribed Fractional Dose (test code = 5132) 267 cGray Prescribed Total Dose (test code = 5133) 4005 cGray Actual Fractions Delivered (test code = 5134) 7 Prescription Pattern Comment (test code = 5135) kV MV verify kV or MV weekly Actual Session Delivered Dose (test code = 5136) 267 cGray Actual Total Dose (test code = 5137) 1869 cGray Prescribed Technique (test code = 5138) 3-D plan Elapsed Days (test code = 5143) 14 Start Date (test code = 514) 09/18/2024 Last Date (test code = 514) 10/02/2024 Prescribed Number of Fractions (test code = 5146) 15 [facility] ONC MSQ TREATMENT [id number] 19:27:00* Test Item Value Reference Range Interpretation Comme [facility] Treatment Site (test code = 5130) Right partial breast Course Number (test code = 5131) 1 Prescribed Fractional Dose (test code = 5132) 267 cGray Prescribed Total Dose (test code = 5133) 4005 [facility] Actual Fractions Delivered (test code = 5134) 6 Prescription Pattern Comment (test code = 5135) kV MV verify kV or MV weekly Actual Session Delivered Dose (test code = 5136) 267 [facility] Actual Total Dose (test code = 5137) 1602 [facility] Prescribed Technique (test code = 5138) 3-D plan Elapsed Days (test code = 5143) 13 Start Date (test code = 5144) 09/18/2024 Last Date (test code = 514) 10/01/2024 Prescribed Number of Fractions (test code = 5146) 15 [facility] ONC MSQ TREATMENT [id number] 15:58:00* Test Item Value Reference Range Interpretation Comme [facility] Treatment Site (test code = 5130) Right partial breast Course Number (test code = 5131) 1 Prescribed Fractional Dose (test code = 5132) 267 [facility] Prescribed Total Dose (test code = 5133) 4005 [facility] Actual Fractions Delivered (test code = 5134) 5 Prescription Pattern Comment (test code = 5135) kV MV verify kV or MV weekly Actual Session Delivered Dose (test code = 5136) 267 [facility] Actual Total Dose (test code = 5137) 1335 [facility] Prescribed Technique (test code = 5138) 3-D plan Elapsed Days (test code = 5143) 10 Start Date (test code = 5144) 09/18/2024 Last Date (test code = 5145) 09/28/2024 Prescribed Number of Fractions (test code = 5146) 15 [facility] ONC MSQ TREATMENT [id number] 19:16:00* Test Item Value Reference Range Interpretation Comme [facility] Treatment Site (test code = 5130) Right partial breast Course Number (test code = 5131) 1 Prescribed Fractional Dose (test code = 5132) 267 [facility] Prescribed Total Dose (test code = 5133) 4005 [facility] Actual Fractions Delivered (test code = 5134) 3 Prescription Pattern Comment (test code = 5135) kV MV verify kV or MV weekly Actual Session Delivered Dose (test code = 5136) 267 [facility] Actual Total Dose (test code = 5137) 801 [facility] Prescribed Technique (test code = 5138) 3-D plan Elapsed Days (test code = 5143) 2 Start Date (test code = 5144) 09/18/2024 Last Date (test code = 514) 09/20/2024 Prescribed Number of Fractions (test code = 5146) 15 [facility] ONC MSQ TREATMENT [id number] 19:20:00* Test Item Value Reference Range Interpretation Comme [facility] Treatment Site (test code = 5130) Right partial breast Course Number (test code = 5131) 1 Prescribed Fractional Dose (test code = 5132) 267 [facility] Prescribed Total Dose (test code = 5133) 4005 [facility] Actual Fractions Delivered (test code = 5134) 2 Prescription Pattern Comment (test code = 5135) kV MV verify kV or MV weekly Actual Session Delivered Dose (test code = 5136) 267 [facility] Actual Total Dose (test code = 5137) 534 [facility] Prescribed Technique (test code = 5138) 3-D plan Elapsed Days (test code = 5143) 1 Start Date (test code = 5144) 09/18/2024 Last Date (test code = 514) 09/19/2024 Prescribed Number of Fractions (test code = 5146) 15 [facility] ONC MSQ TREATMENT [id number] 15:49:00* Test Item Value Reference Range Interpretation Comme [facility] Treatment Site (test code = 5130) Right partial breast Course Number (test code = 5131) 1 Prescribed Fractional Dose (test code = 5132) 267 [facility] Prescribed Total Dose (test code = 5133) 4005 [facility] Actual Fractions Delivered (test code = 5134) 1 Prescription Pattern Comment (test code = 5135) kV MV verify kV or MV weekly Actual Session Delivered Dose (test code = 5136) 267 [facility] Actual Total Dose (test code = 5137) 267 [facility] Prescribed Technique (test code = 5138) 3-D plan Elapsed Days (test code = 5143) 0 Start Date (test code = 5144) 09/18/2024 Last Date (test code = 514) 09/18/2024 Prescribed Number of Fractions (test code = 5146) 15 [id number] 19:40:00 Ordered by an unspecified provider[facility] [id number] 20:30:05* Test Item Value Reference Range Interpretation Comme nts Case Report (test code = 7935377823) Surgical Pathology ?Case: [id number] ? Authorizing Provider: ?Yassine Neri MD ? Collected: ? 06/06/2024 0937 ?Ordering Location: ? ? [facility] OR ? Received: ?06/06/2024 1045 ? Department ? Pathologist: ? Alexia Martin, ? MD ? Specimens: ? A) - BREAST, RIGHT, marked per protocol ? B) - BREAST, RIGHT, right breast posterior margin ? C) - BREAST, RIGHT, right breast inferior margin ? D) - BREAST, RIGHT, right breast laterial margin ? Final Diagnosis (test code = [id number]) [id number] zEwMzNcZnRuYmpcdWMxIHtccn KuUPohpGqwFIS7YXHpBO2nfDw wnAt8mNayNMEjbdN6oGIuJSjt h8wbFKV9n5lnemfbBXGpSEqpY t3jzGNcfGdsCkVuTRVcPTp9aA 92MCIvhS0xvPJeZZeknkLoSDG tV8OrWQ8eBKvvbULuBVY8XGQm PHKeJ8RvIH6gIYMraQFlY55yb AUaUVB6ELEhCFNseSFnUDCiVP W9GEWimWJvT1iyXSWvCX9mehy iXNbxYIqxSIDxkII7QANvnSKr Z8UfMOVdQFhzDQYwowe4ItEcQ h0qiDPneXolRRiaLMDqOUHwQK luXGZzMjBccGFyIEEuIEJSRUF QWQgmAmlEVVAoRDaXPPDRY7SR ZGf7BPJvxoOxGENpHL4aORXhU X3JFTJSNrIyWOLQRWXRKPGLFm WWTx7XEVaaMGMtSne3CcMhLgL aAFSBF4OXTyTLPLnINUJEZfLW IcAQJXjLMCOXSXSJLE9FEF4AM SYZGSTFP25NQEqJRCPCZKJqDF RVQlVMRVMgMywgTlVDTEVBUiB TBPZSPD7FPYoKD70xXpmvKTsT L2QPCgGmAHgyBRRbRFPJHW6AK oMDYUWPPQJVWbrfTDBmCP7uJS EqklSpPKDVF0QFDOlQVoQNWLW YBZ3UGBUJHTIIBLkWCToZUPyc E1zUK1LZBMvzSP28XA3GXR5vM HkVBpHIKV4CKFsXBQXpJAQSHZ QBKDHJCXXUOF0MRXWUBlLIF1S pLvrWOWlmUVSTE3rJNGJYKWEP IqweCLNmcxdrkJWxQ7SfTETxP OIuQSJhBsINKPJGHIauA6IVL3 oYC08UXBpPJUUJZPZqVRFSPES aHCHtgslmpJK6YUiokUV9LLwc yD9eMlQkXyShU0IyZK6cAfPBR BUYBfOPVqYJEObvBW0MRJHYGW RJQVRFICgyLzMpXHBhciAtIFN UBRuCFMDXBMBIBfiKDqwAT3NI EXwYC3rJTBFAQYMGWXAHW2woR DRjYPGQNB3KCrSAUAUVPTPBNs ogMTMuMyBNTSBJTiBHUkVBVEV UTEBWQQ3TLrQVF29xMR9XHDkS Va4EYeZLHJUWCXCqQ0KBXX8NV ZTDYU7VZI7FQ65fEBoJWIiSTX JjHzfFL0eJLPx0QxPgIXbjLUJ lA5RuSQ7wKcZCTEFVED5FRS1T QiqQJcEiIVOMLC5QE8VYVHXYO KOVKM0RERXNLjVeCV6ZGC8rBC 5EKROCJZ6CMFgXGIRhSDVSCBO sRoYQEmQpD9iYN0BCBIWbLx2L KMNJPiTYBQ8EIueQCyZVVNXRP VMpIFxwYXJcbGkwXGZpMFxsaW 5zRLGmAQIkLMCPAV3XTZ7KFWA UPUlERfBBISVXMUDAWwEKQ4rP SsfjKp9JXNfSZO1INHMJNPHsD SQjhiDxPSQmDZ5dFdaIEPATUC DMHPSaQJ4IDMWGGUGtpHIaHEM gICAgLSBTVVJHSUNBTCBQQVRI Y4oWU8ygP7WAV9ClYZACE6DaY KPQFXUAQNOOJ78gQCXDJCAjtS 2HLXNhXQ1ETGLfvdUzUFPzST4 jO9PHDFOJIw1KTXoHBIYHIC0Q VCBccGFyXHBhciBCLiBCUkVBU 5XwIDUHW5wLELBRA1TMKOMMN7 BlJDTUO3mOIULHPRFBP9pDJoa tcXOqKYFyUTUfZIFIAP2GF57b EdNBSVNNOIVYA3PBXXobGRCEX NZRK10EZZB6EuBvRG8uQWCEG9 iCOCWmzxycLPViGp3vKwSPVAO OBQOVOLmVLPscNB4OLITFH5Xb GSEPB9sBUKOWJDRFD4dRVjpjj GUyBWDiAQVzIDKENW9YA47dBq CKEJWUYGLVA6GSQHmfXCUTYAS RN04AALJ1DyZrGO4gKXFJZ3aK XQIqlkraSYZuQU1eUxUZMEBCK CBSSUdIVCwgTEFURVJBTCBNQV AJIM1zTNSSS8lECP7QAutwMPR gICAgICAtIEJFTklHTiBCUkVB Y9SyUArRS1CTUDCKFRENPVoNN gNIJTasPZINGWPKQYOQIG2qsU AxZOMguw40XLZ9PcPty8O6CPS wCgWfXPHnQH9vmRcvSBAuKG8x STYwF9kegH1ugeo7RrVkWXDoY uD3JUHyfsH9Nei4UQJoXQdmr4 pjo0WfT2EkpIUelCs5c1epRBO fPzR6bJUiKKnpN8egisZllTHv SCSlPOl4qNsxKaNzDMPyf5sga yBcZmNoYXJzZXQwIENhbGlicm e0kI49PMKsgS8drSYmMMkennM iOqH8ERwzWHRnMnD8JRWziEId PRZqV5aiBMFvZGooFHHlUVmpw ZNxJHK7mAkgd1L6eUXjhXGrdT ruStHtMmCrRZAIn4LlSNw5fBa kA7HiHKUzFwY3eKMeMNLvQNtr BPVeEBAfyuN8xY16FWrxseC5u EObc8Uln68ty726hP2keNYfAM Y0EFEoGFIclSOoCEUaUHJ5HRW nxQJoF4jcOMVxDC0xlgpyBJdp NHmiGOIyhHW0DCNynJGwX0EtQ NJxLBklLPNnywr1HcOiDa7gtK NwtGblFNkxs6hsu8vokOVvZyh 3ICRrNzEcRkxlJJvhz0Xxy5hs ZWSfjw2mNYS1kHKdxLmrr4N1r RXgCJAegJVycsQjWQCxDwD2WV fmXO7uyw21SZCbPFP4uv5zjXO nbApmvqOtiFVjQYeuA8VyUEEc z604YBCtA4EgNFKnj5Z3bdKjJ sTxXEPliVN5vqN3IXFtEKt3rK EfjfN2bgKytAYrA4vaoK4iQAG gQM7otfgyj9piPQtwESnrPJCr vHM2nmX2QUSkzZRqL8OjvT9aD EZdVMynGDWfjnm5DwBqPz8whK VyeTcyMFxzYmtwYWdlXHBnbmN vbnRccGduZGVjXHBsYWluXHBs YWluXGYwXGZzMjRccWxccGxha P1jYsNjAoTeHLmfIG9eSONaM0 husTIhYYMlFQZnU0faSuJvsM9 jaFxmMVxjZjJcZnMyMFxwYXIg SSBoYXZlIHBlcnNvbmFsbHkgc mD2oFS9VHKyMTfxLSUqIRYgzC Mcsc8kaZazCNPkQD1oXTGgbqF gYJqwqRsaGMdxDCF5EINelAGq dHMgbWFkZSBieSByZXNpZGVud XAvKFYnuDanc6Grr2PvuIM8zS 9qm3tjr8DdHRIqcCY4FO74nqS 1jA5uQNMkOZ2wVEOgLR0tlDZn aJFzRODmd44ltRxcecPpCBCdg nQuXHBsYWluXGYyXGZzMjhcbG FuZzEwMzNcaGljaFxmMlxkYmN bLXImXRqzD3tjEsMsYsLhRFsx YXJ9fQ== Clinical Information (test code = [id number]) Breast pain, right [N64.4] Gross Description (test code = [id number]) q3kifRNgXXFfiNKwGJOtD6txq nSeROYxtLAeG5JahyggSDjeNL 6dEB0vvMcstICypJYdYDHmPfX dy4pat291vHJwl1hsWTDVkddi rCv8cZxpG66ui3O0GkecG66cc QLeSPD9QDCpLHIwbPHkGABdTN T7YAGqcHXlX8gqUBEvOX2ykcb aOOqjCFptLKWdrDW9TGXfeMPf X0UvKKKlJIcgAWZozmo7TkViP g0wdXEybTwiGXviHxlqcCzcs2 VjdCBcXGlkIDUxMDAwIFxcbmg fISp7SZHqJBitnCBwAQ5cpOyg EetrhMoyx6TzhIIuZHoqONYiR VPvQUrfVAXxC6PPKCMhMFO8UJ P1IUVxCHp1YGk0GW5KPbNtTIA bUfAkPjR9ZkAuKDi5NGoxVA3A CTVkSLW9WrR9WHkpZUV8OEFcG Gz0FGFjRDclclLjOUsqEdipMB nlO38bnPUiORsopRNvscpegcD wIFNQRUNJTUVOIEFccGFyXHBh ilMld0PvVHgqbIbaMLQcQtSif VqhuS8kIxLpFXHLrQHrdO6bee WIFHztVQGfC5FkcyJuOYCtRFO uAXasAaRuVXLms6l8sWBvMGBs PS23LCT6KrH3QXulHBQeCS5pq FRsKUSJWE03jRYinhriYDA7Lq ZgWYfuQYXqsJfrpGRdaoOlm3A rzXBat7QkQSLwhyIzom68k7Wg aCp8VUBdXQHqSbo5LIKuTAHnp 87yyHA8zePwTbEpBEuyp9OtRY xhArDeEHZiJIRjeU1tXIP3z45 2DXDnNWLvjYKyHSe8BvAvD14c bWVkaWFsIHRvIGxhdGVyYWwge VB6CkXdS17gp7ZwLFEzq3ArtU 8arR3iRYInp5UtjYBrTcFhU20 kEL12LMAws4YceC1htE3ftZSn tH7cUMO5PVVyEMfhjLyhFUYlb Na7O2fwb05eb0FbJQFer8NdQD 10NTXod6IkSUdsZTTxxNQkRPK CqRVaj2HzD2vfRG3jtBUyy6Xn fDBgkLrtu1PeiZmbjjStEUYyt 91ziWO2QRKwsNM8ukTiEFJpJC mutL6jRKGugXyqZKQgeB1amuE 3VFSmTYMsi5hgG0afQWXljyYd AKKvIDjrWxBdX63orAEqlHTeX CyoLZSivL2uoKY4NSPwnZS0LR BbXRMpuHZuxDIgpenodeQ0lwZ hozRnljczkxN0CUAxNsEkiNSa isJjcujnpxQ6vqNsy6O1MRAqi 3IpIHdoaWNoIGlzIGluZGljYX AfRNL4qAKlKQRixJZ3YMkmzHC wohziGmOnyN0ct3ovY0ndjQQi VFEduKzmkPQhDVluDNNuo10nt 9efT2XyZc9sMFdyAV8rm9OlO8 9eOANbm5z1gOffRJZbQGUzgBD bQdE5oYCvs8LuKKGbp9VkLGQo RPCccFEqRoM2gFIynY8sgIBjd L2wFJVyKqPmQ78rq1UmkRrpGQ cxAhMgvS9pKMOgXlMhH15fl2L hzIujDOgrDORiQL66HDFra6Ib MZGfEnPytFYqBuD5nJQdvHJgi VWyUEImLNQcBtKzR42jd7SxzT tyLEecdXHpORklecCsJQA1pJ9 aEP8fhsumoxVyYKlqt3JnBRQz w0UlD2AgqRbwSYReTKA4MNhhh kQkZpO5fNesJJLjNOXrsVThDt RYmHBnYXZsjcMxEF9dtP7unba zB2G1USV5ykEyI4DvVXZzWBH2 OQ8whQRsiE37ANOha2A0mJM6D QEdKO6zYDxuj9KneSjfzG5vLU 0imdalQxsqGaYMoTYyo3NbP2g xDZ2gnCLdd7ScfMq7xNGwXKTz cOgoRYb6QCFgc93qmOW0BJEdt KK3xkSdeJLiPF0kGJhevIFepd CMRT8ZRlKxVGGmzvclCLOfKW7 kUPIfCSEhePAtURSoiDKiIT1w IMGeSEM5eQExyJ8oTYIdmrMld vghpfLgy3gxlG7iIKEkl8KxIC cooFdze7viavRfn9sdoHKphDP eVLRthyKiS9PeNJ3fPVIaWNez dGVyYWwsIGJsYWNrXGVuZGFza EVya1D4CZQay7YaWBVoFXtmpp Wum0ulBZ28GCDre2ApsTIjOSI rgvACZJP9oN1iSPCoIBNqaRTf IEExLUEyOiBMYXRlcmFsIHJlc 9YdrWaxdaGmZSAmbS3hCLXpof CvtaDeW6CgMWRzk3InqQfnufP wZFHbbWddSUb9SUCqzPhkGTYc KRjhQRWdPEZvCPE6NNCbtFUpE BSrWDJiv6DloBLiMNXykwOrbo YmbTpoBBJqFKQkXSN9VMNlpUB eGZPnVRYnz0TglNGsHHFrwoLs hhHywVjcKUWpPYhlALy5KUDhb NWyMZJhZKNmr3KjyAVdCWCyet RpcmVseVxwYXIgQTktQTEwOiB ZlGmlBLT4CAPdcPAxP5DuWFfb DC67eMPsnQzomYCjMAWhDW3AY AZ1XTEguMNaCMGfHVJeb0SjgB VkLCBlbnRpcmVseVxwYXIgQTE kXUTyLQaoU0daG2J9YCgvYP5i f4Dmv2p9oQKibB4oh5upM9ldi LMaqUUcJMV2bwqlDBL0DRQuEK XvfVocOZv6GUStibPSUYGcYAL 1FlENbJwcUPF2UWT2dnklZOV6 SYIeMJIkxKolKYk5EMDdycIPL TktQTIyOiBNZWRpYWwgcmVzZW S7mJ5lOE1ubpgbywbncEOtiDU fIHmqcSusomEcTXG4vR4pknxe ET53oXCcqYujFXFkcUGvJOtes AItFSHcgyEPXQSrTD3bNEKodB oaO0Jsf355BBZcAtHwReDaERY pdVP8BoU2PRHBCSmmSKJdMExy NRJpqoJbz6ZoPJcbvpdjSBF6L KWqVO1zz89hZQRiGt7qBIZ7NV BhclxwYXJcZnMyMiBEZWJvcmE gTGVkZXNtYSwgTUQgXHBhclxz MBDiYVLleJNHq4FbJUlxbmDji 3qlmKeqr8SyzTMqCE4gxACuk8 irVOTtdDIzLRR0HXalrEBjNAY wMDIgXFxkYiBPVlIgIiAxNTQ1 PbxoDDTfZXt6OVovL9QZLKIiR QZ2SyC7TQG8LwE6WDp5OPJLSf 5sCqTpZBQ1QJJqXKO2SGOuFSV cXHQgMiBcXHNzIDMgXFxmbCBc OF9aiQnvDGWjTHGgOJR2NULdl UFRa6HiWGScS9AFF4oQVK0kYs xwYXJccGFyZFxzYjMwXGVwaWN Cy6RiXWnueJSlxadrkfAxMDWx ISXygIMxGQReuAIwdtTeVPx4F PFgrM9wSp3tkRGsaI7bvBJiOE srQUVpg2v1qYX4cZPjuAA6sKS geZhiTmFrTE1jqKFjIYCUFL45 bWJlciBgYCByaWdodCBicmVhc 5UffH6ijEPamW8yMB5ztswaow ctGhHkQ1O0CETcFVDsz66abON 5okOxGmLvPVLdxkwnKHB1GMdn p0kwhL2llLzbpQMpTWPtUvEeI KNfkA6kQKV2eGYffCWbLcVsF1 0uanNpHSBaRJD2ZROsPQR2RGW sPEBfoIrrVXPtPBtng7pzR6kd tABzwhVnTFh4ATYwe5r4hYNbg HBeqaYshxcdl82wd64aYAX8ev YeO0EwVVQnyZbgSLIpyboutZb cPK7hyjXhOYPulF4yYEIgDCAm jpsrtUDgaaFxnvThnvLxTXN6m XRoIGJsYWNrIGluayBhbmQgdG hlIHNwZWNpbWVuIGlzIHNlcml znEk3XBXoV5Isq55uIFD3koGf NMUvMQehjBUmbO56KSkoNiDcU DMwREbzI7Mhv0LodDX5vzLfkK Hjk5NdbVOhP6E5LVP6sfCfW6Y bIbYKfFJza9IqT5rpDT4xaGQf BW11xEKdfNayy9FgrMh4sLNoO ExbRCPmZVX8CbirPYNqsZSiVE lsKLWnZ68baSXdrKzmwhD8pS5 xSaKmQKW6XT7nEQMpNdXjRyIv GAhyVYMjEf9ieWXmhK5jjHypO EsgYQb3IXCfcdReJS4bVyBqQe BgnQWuDPaiI3kndWywWZIkqGH 5XNyzhTtblFIhh2uaQNOwd9Ah AYjoaMppMQTeRyA4BNXvdRKsO XG6ZD9ejNcdEFI5ZFucAVSuH6 SmO0MdEKdxZLZ0QNBwQfZdPKD fMN3SOoPxTMT1GSBdWuEyCpK4 TKv0XEYZWdZhHuFuVdo7KQVxT XhnARk4HZp3OEoOLpQkXuZ0Zf cwVfdmIVE1XFH9GHaelMRaAEd vg2UuSyQtHQRvZRlliqO1DGMd igVoy0WjDEEuNYFeF5vjGwWqK VxmczIwIFNQRUNJTUVOIENccG ApBWOgyfTzs8CzWSlatZidJCH dWkNchFzpwN8xZvMhLfIIpPSx eB1zykZXRCqtJMWaI7UzhePdW TkpKRZzup5iiKuaZCwfOoWhmO VkIHdpdGggdGhlIHBhdGllbnR uB0E7noNlNW3kPMVBOYRzbR3w KQFzGJTmNsSeNJJ1DQMuyLrxy VgxunobuHBnLvHsQIN1ZCaiNe HmrT7bSA6fgzcmhhxeMmXyT3V 5IAWpJMZeb04ilJV4tjTuLbAs IJQoyykfVEG2CBopo6oloU5ax EkwuJAwCRAvWrCiRAIjcN3gBI W7iNDqhEXxZgVvB95jiiSwDML vJVC6KRWzCSS8KMCzYEJmwUdx MTEgZyksIHdoaWNoIGlzIHJlY 0XlzaFqAIfufYkcR6VoDW0dbM 4lHT5qSB9tGFEotUHxCTRlNYF no0ofztR6nN7iRRKyPBAiSHcq kXWxM1poSzGLgZHolP8xRSsoM ZOjbO1lb2IpLQVln4i8lTAjff QkbyEdfgckYI7wEHUjLFFnuYN vlV2gniXhxrCvXTRxORnmhWUa PUW3tR0kSJPloV1ropI6FAFcG FYrrxxeY7S1AODdmGSlDZJmNt RdhQOrZV3kIZadwIieklLee6B 2hJO3LFEbU9R8AAG0tqJwQ8Gh QdZOtAXao0GdZ1tdYR3kfBRiP K37qJSesUqjh0MtgAb1vAFtKA sgFUJaSSFvSJ4cgNDnUPLdtkM nuVFyOLLjbTreE8Wbl60pjOzv MObfJNc5DNDtlfAyLL0iMvIqG tWumREeAXNqnr1teUftEYOrjG V7YEQ6BGMsp70eZGOvRg7qEIS 0FQHcjlEKg4OwLU9iCmX9nS2e AgE4WG6ekfL5IOVanHLjHYVlv kclNKChQTAvkZFOx0NtJDqjXS VvD9JxO9JmrlJ5JCFvbofoPci iwBneg0KccGLvJLuyUHKxWMXb VUhfWESmO3XHBCXbVTX9TXP7I QBfBMq6PVy5LY6ZXvWeQFMsLr WrDkP6TDByOZm9JFbwBX4XFZI fBQVbZLL7RAMtTGX5TWMeBYj1 IDIgXFxzcyAzIFxcZmwgXFxuY 31ccGFyZFxzYjEwNVxlcGljWH SkUZG0RPOrAdClB7FGD7yCNR0 gRFxwYXJccGFyZFxzYjMwXGVw jGRBe5GkOVkuiDYozrqrluEsI FNwZWNpbWVuIEQgaXMgcmVjZW i1UWFtoS2iIu6xiMFfpO3spKU sNEczMJQuy4f1hFF4pGMwfWQ5 oWMsfKerCzSzYG0clLRnZRTFR E27xRWdejSeLDMyocQkd6SlGU LfO3v9WMBpdPxseZEsfdBfi4G gbTI4SPCmhREkUXKyrX6yI4K0 SRirMVDpjrFkM84yx0xeeKFuz 6XdEFWxeN6nxGRvmIVqdS26TM chJeTkNAXlOBVnmROfx1BjmFL ma9RhhVgsi1MpETOnKIqjBN62 ICgzLjAgeCAyLjUgeCAxLjAgY 20sIDYgZyksIHdoaWNoIGlzIH DtY2PioqKaMSsjbLbhr5Injen vSAhtdkYjagMpawMtn9CvSeEn FZSqCJUaY11sbTkaThI5hRPet zI3NZ6erwcdzl0eVNihURnqes XbbeCgSEvpEv8kQ2WmYJvgfNe pc5UbikdtVPtjstWgtxTfnVem IHNwZWNpbWVuIGlzIHNlcmlhb Tr8MTWuG9Ndu94oXJA8tdNpYS LyOPqfzkXtzRGeKYGfVXD1ZY3 zUdvhnc33ieYcusCesSJfdP57 HQwrUkVzJRJlQDHgxSTec9CnV gLhCTYzVRGyIRBadUGawF4ayj BpcyBlbnRpcmVseSBzdWJtaXR 4GCAkaR2vKFJvVUInMUBreirf TFPzWZVataHMj3qyXSP4fU9bY RBiyNC1HAL2NKLqd76jLWRePe 9zJZJ7DHYtabPKn2XhHOioxiT 2jV1fWsUaNDT9JX2cCMXxObAs MjAyNFxwYXIgSXNjaGVtaWMgd HcjCDoeXhVqrY73qEKaHPAyqx zmDMVep4YjMXewxLhhTWMmOqU vZeNkhFQqKOEVoYcqoaU5YJOB NYIkDRSGKQi4INUotPNzOQR7I B8ngPnoYHGvE4NrL2CiqyE0WL Bhcn0= Synoptic Checklist (test code = [id number]) INVASIVE CARCINOMA OF THE BREAST: ResectionINVASIVE CARCINOMA OF THE BREAST: RESECTION - All Pgsvvnxel5uz Edition - Protocol posted: 08/16/2023 SPECIMEN ? Procedure: ? ?Excision (less than total mastectomy) ? Specimen Laterality: ? ?Right TUMOR ? Tumor Site: ? ?Clock position ? : ? ?12 o'clock Tumor Site: ? ?Distance from nipple (Centimeters): 5 cm Histologic Type: ? 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 ? ? Glandular (Acinar) / Tubular Differentiation: ? ?Score 3 ? Nuclear Pleomorphism: ? ?Score 2 ? Mitotic Rate: ? ?Score 1 ? Overall Grade: ? ?Grade 2 (scores of 6 or 7) Tumor Size: ? ?Greatest dimension of largest invasive focus (Millimeters): 13 mm Tumor Focality: ? ?Single focus of invasive carcinoma Ductal Carcinoma In Situ (DCIS): ? ?Present ? : ? ?Positive for extensive intraductal component (EIC) ? Size (Extent) of DCIS: ? ?Estimated size (extent) of DCIS is at least (Millimeters): 13.3 mm ? ? Additional Dimension (Millimeters): ? ?4 mm ? ? Additional Dimension (Millimeters): ? ?22 mm ? Architectural Patterns: ? ?Cribriform ? Architectural Patterns: ? ?Solid ? Nuclear Grade: ? ?Grade II (intermediate) ? Necrosis: ? ?Present, focal (small foci or single cell necrosis) ? Number of Blocks with DCIS: ? ?4 ? Number of Blocks Examined: ? ?22 Lobular Carcinoma In Situ (LCIS): ? ?Not identified Lymphatic and / or Vascular Invasion: ? ?Not identified Dermal Lymphatic and / or Vascular Invasion: ? ?No skin present Microcalcifications: ? ?Present in invasive carcinoma Treatment Effect in the Breast: ? ?No known presurgical therapy MARGINS Margin Status for Invasive Carcinoma: ? ?All margins negative for invasive carcinoma ? Distance from Invasive Carcinoma to Closest Margin: ? ?10.5 mm ? Closest Margin(s) to Invasive Carcinoma: ? ?Superior ? Distance from Invasive Carcinoma to Anterior Margin: ? ?Greater than: 10 mm ? Distance from Invasive Carcinoma to Posterior Margin: ? ?Greater than: 10 mm ? Distance from Invasive Carcinoma to Superior Margin: ? ?10.5 mm ? Distance from Invasive Carcinoma to Inferior Margin: ? ?Greater than: 10 mm ? Distance from Invasive Carcinoma to Medial Margin: ? ?Greater than: 20 mm ? Distance from Invasive Carcinoma to Lateral Margin: ? ?Greater than: 20 mm Margin Status for DCIS: ? ?All margins negative for DCIS ? Distance from DCIS to Closest Margin: ? ?Greater than: 8 mm REGIONAL LYMPH NODES Regional Lymph Node Status: ? ?Not applicable (no regional lymph nodes submitted or found) pTNM CLASSIFICATION (AJCC 8th Edition) ? Reporting of pT, pN, and (when applicable) pM categories is based on information available to the pathologist at the time the report is issued. As per the AJCC (Chapter 1, 8th Ed.) it is the managing physician s responsibility to establish the final pathologic stage based upon all pertinent information, including but potentially not limited to this pathology report. pT Category: ? ?pT1c pN Category: ? ?pN not assigned (no nodes submitted or found) SPECIAL STUDIES ? Estrogen Receptor (ER) Status: ? ?Positive (greater than 10% of cells demonstrate nuclear positivity) ? ? Percentage of Cells with Nuclear Positivity: ? ?99 % ? Progesterone Receptor (PgR) Status: ? ?Positive ? ? Percentage of Cells with Nuclear Positivity: ? ?70 % ? HER2 (by immunohistochemistry): ? ?Negative (Score 1+) ? Ki-67 Percentage of Positive Nuclei: ? ?20 % ? Testing Performed on Case Number: ? [id number] Disclaimer (test code = [id number]) f3oqjMHyCZXme3adZFVsbFOjB zEwMzNcZnRuYmpcdWMxIHtccn VcPXwex3SiT0SjQhFyLJfgsoV nAKPqWdwjmiawGRUgFXB2clVy VELjXYvvCRQpBPfzPp0moWVeo BlmPhCqVZWck9radtTZFVueSt ApS125RJMrUWqnq4tfi0HzYRY krBTka3Q4HGIWawhyuFj4qBow Y55gd1G4NsasC7tyWSOkEQMwC 3JmMX1oEKWoMov1YRS0QJD5EB KxWWMtK7SyRB3fEZYllTCsZEz 3g4tziPtuILXpQAQ2c9hrAJyj wxMgHS2zha2xyTl6g2ykzfTuN LIlCTAizLWTMLLvT3FmbXsePc 0oqTn9mWqdVrtiYZP0Iij3WB4 wfv87qny1xJpwEQIghvljTsX8 QUfnFHBzvaudFQo7QIedXSXra KL8HFZorIXzP0HdZSBgAB5uuh e2NNJ5TXeyDNXdEdB2MXUceMJ fFLHxiRrqUXyra437AVV5FlBe AC8bR8Lis4V2aC7xvJWrCVRfe AGrSlOzCJDplg4fnECdRQvhj4 TbNAM4kbF0dRTkvVXwTZCjZN3 5Eipwf7YgPwgrt6BuV13sbUR6 SCmva8rxPI2eVvO9zvNzRMdvv 8fgjQ8sHlH6EKlrXJ4rJE9eGD OqfV6zpuyyLDCcDpZxzefeKDN wmYjwuxGpKe8cfFonUSY4GHou A6aftL2pPeI3QArkU7fwmO8hP Va5WZiurWX9QVVyyC8oSS4avw uxh9bcRHyoSObvRUXmjbM2mlR 0ZJPwuQQgK6PsvI0mVTQrVP1x jorgo4tdYDD3NJuqDWDiUKS6M lBjRWQej8Lhnwv7DeRxf7XqhI GpRKfkL58hf086CWXkaxHuJ2c wbGFpblxwbGFpblxmMFxmczI0 SEUypkSuj7JlCLRuQZA3HVtjZ VdhyVKfTTAvkJcyv8yzW4AlxQ FyXHBsYWluXGYxXGZzMjBcbGF uZzEwMzNcaGljaFxmMVxkYmNo TEUyFTnpN5rfJcRkW8GgQXOqA iZfiLBlP7tbUZnsadQqTRJgel JkdRF6ZWbhS8z6IXInjvMijKq 2ufSqDqIrFCIpTQI4IFnysXIh HRIfe4UgvroloHCpWy6udLPbC QJanH5yZQFwVZNlBFoyEF0pzM j5SBAYeRHrgMIcSuEQIVTnYP6 0chEiLODDmzxho5I5WSyaEPJw d0VrzAJzU2mws1CdMMGkj41rQ N6zs0P1u1bmFWP8CO2dq8AhMF RxgUBzyXAqATJio5Fequkwp9V dDRPkgpBeb2ChEJVkbfTcuURy YGMilqIsdg2mljRfKRMqUKHlH 0FzfihjyOoslzMkOEInrb7vvp DhGYI2XJGSFPWsYWXuw3NpnA2 ltHONCXB1jSExxa5wiaABfAOg OOOvam82WLNkFE0oO3ynMAQoG UVhikVufCBjy2RtAQBnyZR2dU ZeZO2INrMIv84lTEDjTJJMzfM rHRPkyWkhtYY9epI0oE8tHBkE REEpLlx+TDAmACFCYPSyJG0sy zNyy2AqkfGbqGonCPZieGVbw5 FxvOBbt0MtfZstt1XfpQOzcLM jOQ5vYCIjgmdvASGkDIQMBtKN CHKqyuQ7d3GcFLRaHMPlRJY5j Jvtifa7ARLbyD9xKOAkY0lmew ybJWmxHQWls1KbsY2ppNRAoXT iv9JfpVCexPLRhULhJW2jnvYq UWdRMGaDSJL6scIsXYYsb4BgX KkvS1paW30mcRaonCb2fOC4NJ U0tJ4fFht+IFxwYXJccGFyIEF xyWRwrZRlAOXbzZqmntJzD9Ud hpSvfA9klGStirBmKJ2sPW2pY 7Y5uTRqIARyrmSmo6waCLvfpd EcVsXyueWwLBLyGZfuPXNgj0Y kUBcaPPW7SOfigcLvddYwuRRe ylmiYRPQBFZMtAByaFSvCSL7D HuvnhSsgmNsZN1ujQ9xkMnnvM 2nzTBoaYY3tfihEOEcPFJfqHq xHDBtRJ9yuClckG0zZjRrJcTb BEstME5zEJHlZ3yggPYnRLHwO FRpY0fkUnTusO2etKppWDlvRh JcZnMyMFxwYXJccGFyXHBsYWl uXGYxXGZzMjBcbGFuZzEwMzNc aGljaFxmMVxkYmNoXGYxXGxvY 7ciAsBnU7HhFZNcSiLpeKIyJ6 bePOnoOBC3QUQcIO0kkUSkZF4 2rMGiq1weIXiodErmzr0qI55s rADnKWlwyJtwRGMcs07ri3KlL ASwkaQosi8vBEXjknY0iU3rRM KagYaaFNHnkQVeYXWwl8LfULc naXRpemVkIGdsYXNzIHNsaWRl ltZ8xoFdikTblmSjYYRrqSayI TZjt3UhTNRnHUjjn0Oegn5utD LfIUVecsMLwIuhmERooF3rH2M qJVKdREFfju8dJOQutQ7eYNyx o2AuahknQDKzIEIpRWTysxGyr t4iRKPuoLHNUE7BDUbyhPAld0 RcftPsC7mEQMT4VVZvNaVlGmb tEDQvgCFnvTSpSVMbya55YAVu sH0ruUtoZCZjvF4mbS0inYfoa P2cVjZzAdUnXHpyRI2lJHHkP2 mujSRkAUCiAVRbO7jcInZujU6 jaFxmMVxjZjJcZnMyMFxwYXJ9 fQ== Embedded Images (test code = [id number]) [facility] TIME OR (NON-REPORTABLE)2024-06-06 14:54:04 These images do not require a Radiology diagnostic report.[facility] TIME OR (NON-REPORTABLE)2024-06-06 14:54:04These images do not require a Radiology diagnostic report.[facility]EL [id number] 14:16:30SENTINEL NODE INJECTION CLINICAL INDICATION: 74-year-old female with right breast cancer TECHNIQUE AND FINDINGS: With aseptic technique 1 mCi of technetium 99multra filtrated sulfur colloid was injected intradermally in 4 doses aroundright periareolar region. No images were obtained. The patient willfollow-up with intraoperative sentinel node localization.[facility] 13:23:00 Karson Christensen MD ? ? 06/06/2024 ?9:02 AMIntubationDate/Time: 06/06/2024 8:23 AMUrgency: elective Airway not difficult General Information and Staff Patient location during procedure: ORPerformed: resident/CIRCUIT BOARD DRAFTER Performed by: Fiorella Kaminski MDAuthorized by: Ashu Henao MD ? Indications and Patient ConditionIndications for airway management: anesthesiaSpontaneous Ventilation: absentSedation level: deepPreoxygenated: yesPatient position: sniffingMILS not maintained throughoutMask difficulty assessment: 1 - vent by maskNo planned trial extubation Final Airway DetailsFinal airway type: endotracheal airway Successful airway: ETTCuffed: yes Successful intubation technique: direct laryngoscopyFacilitating devices/methods: intubating styletEndotracheal tube insertion site: oralBlade: MacintoshBlade size: #3ETT size (mm): 7.0Cormack- Lehane Classification: grade I - full view of glottisPlacement verified by: chest auscultation and capnometry Measured from: lipsETT to lips (cm): 20Number of attempts at approach: 1Number of other approaches attempted: 0 Additional CommentsETT 7.0 placedatraumatically x1 attempt. ?Lips, gums, teeth, and nose unchanged vs. preop.[facility]. Metabolic Panel ([id number])2024-05-16 20:19:10* Test Item Value Reference Range Interpretation Comme nts NA (test code = 2782403437) 136 mmol/L 135-145 K (test code = 2431545255) 4.2 mmol/L 3.5-5.0 CL (test code = 7417119088) 98 mmol/L 98-108 CO2 TOTAL (test code = 8621064871) 26 mmol/L 23-31 AGAP (test code = 1916518900) 12 2-16 BUN (test code = 7974786470) 13 mg/dL 7-23 GLUCOSE (test code = 8164417130) 95 mg/dL 70-110 CREATININE (test code = 2160-0) 0.54 mg/dL 0.50-1.04 TOTAL BILI (test code = 4465115674) 0.7 mg/dL 0.1-1.1 CALCIUM (test code = 0374726003) 9.6 mg/dL 8.6-10.6 T PROTEIN (test code = 0490348158) 8.4 g/dL 6.3-8.2 H ALBUMIN (test code = 5927751046) 5.1 g/dL 3.5-5.0 H ALK PHOS (test code = 1325884140) 51 U/L 34-122 ALTv (test code = 1742-6) 25 U/L 5-35 AST(SGOT) (test code = 0257187486) 25 U/L 13-40 eGFR (test code = 53103-5) 97.4 mL/min/1.73m2 CKD-EPI eGFR (2020). Assuming creatinine has been stable day-to-day for at least three months, the eGFR indicates Category G1 (>= 90 mL/min/1.73 m2) Lab Interpretation (test code = 68341-7) Abnormal [facility] with [id number] 19:46:02* Test Item Value Reference Range Interpretation Comme nts WBC (test code = 6690-2) 6.84 4.30-11.10 RBC (test code = 789-8) 4.35 3.93-5.25 HGB (test code = 718-7) 13.7 g/dL 11.6-15.0 HCT (test code = 4544-3) 42.1 % 35.7-45.2 MCV (test code = 787-2) 96.8 fL 80.6-95.5 H MCH (test code = 785-6) 31.5 pg 25.9-32.8 MCHC (test code = 786-4) 32.5 g/dL 31.6-35.1 RDW-SD (test code = 26741-1) 46.9 fL 39.0-49.9 RDW-CV (test code = 788-0) 13.1 % 12.0-15.5 PLT (test code = 777-3) 229 166-358 MPV (test code = 10714-9) 12.1 fL 9.5-12.9 NRBC/100 WBC (test code = 2018679885) 0.0 0.0-10.0 NRBC x10^3 (test code = 7049860533) See_Comment [Automated messa ge] The system which generated this result transmitted reference range: 10*3/?L. The reference range was not used to interpret this result as normal/abnormal. GRAN MAT (NEUT) % (test code = 770-8) 64.4 % IMM GRAN % (test code = 8913138427) 0.10 % LYMPH % (test code = 736-9) 26.2 % MONO % (test code = 5905-5) 7.7 % EOS % (test code = 713-8) 1.3 % BASO % (test code = 706-2) 0.3 % GRAN MAT x10^3(ANC) (test code = 3204734727) 4.40 10*3/uL 1.88-7.09 IMM GRAN x10^3 (test code = 6245260624) 0.00-0.06 LYMPH x10^3 (test code = 731-0) 1.79 10*3/uL 1.32-3.29 MONO x10^3 (test code = 742-7) 0.53 10*3/uL 0.33-0.92 EOS x10^3 (test code = 711-2) 0.09 10*3/uL 0.03-0.39 BASO x10^3 (test code = 704-7) 0.01-0.07 Lab Interpretation (test code = 46400-2) [facility]24-[facility]-16 19:29:15* Test Item Value Reference Range Interpretation Comme [facility] HGB A1C (test code = 4548-4) 6.0 % 4.0-5.7 H WILFREDO (test code = WILFREDO) Reference RangesNormal: <5.7%Prediabetes: 5.7 - 6.4%Diabetes: > 6.5% Lab Interpretation (test code = 75098-3) Abnormal [facility]andProthrombin Time / [id number] 19:00:13* Test Item Value Reference Range Interpretation Comme [facility] PROTIME PATIENT (test code = 5964-2) 11.6 10.1-12.6 INR (test code = 6301-6) 1.0 Normal INR <1.1; Warfarin Therapeutic range 2.0 to 3.0 or 2.5 to 3.5, depending upon the indications. Lab Interpretation (test code = 27319-9) Normal [facility]andaPTT2024-09-12 19:00:13* Test Item Value Reference Range Interpretation Comme [facility] APTT Patient (test code = 3173-2) 30 26-36 WILFREDO (test code = WILFREDO) The [facility] patient population mean normal value for aPTT is 30 seconds. Lab Interpretation (test code = 59790-5) Normal [facility] US GUIDED CORE BREAST BIOPSY RIGHT 2024-04-23 21:46:19Table formatting from the original result was not included.Examination:BI US GUIDED CORE BREAST BIOPSY RIGHT The procedure was explained to the patient including benefits and alternatives. ?The risks, including but not limited to infection and bleeding, were reviewed and the patient agreed to undergo the procedure, signing the consent form. ?Timeout was performed. History:Patient is a 74 year oldyear old female and is seen for: ? [...] 2 ?(TUBULES - 3, PLEOMORPHISM - 2, MITOSES- 1), WITH MICROCALCIFICATIONS ? ?- DUCTAL CARCINOMA IN SITU (DCIS), INTERMEDIATE GRADE, SOLID AND CRIBRIFORM PATTERN, WITH MICROCALCIFICATIONS ? - SEE COMMENT Patricia Timmons, DO ? I have personally reviewed all specimens/slides and agree with all statements made by residents, fellows or pathologist a ssistants whose name(s) may appear on this report. I have personally reviewed all specimens/slides and agree with all statements made by residents, fellows or pathologist assistants whose name(s) mayappear on this report. Pathologist professional component performed at [facility], [address] [place] [id number] at 1112 Concordant findings.Surgical consultation is recommended at this time. The patient has a follow upappointment with breast surgeon Dr. Neri scheduled on 04/16/2024.The patient was notified of these results by Dr Morelos on 04/12/2024. Pending workup:Ultrasound-guided biopsy of the right breast 6 mm oval hypoechoic mass at 9:00, 2 cm from the nipple is recommended. Given the density of the breasts and this patient’s biopsy proven diagnosis, bilateral breast MRI may [...] tissue marker clip was then deployed. ?Continuous real- time ultrasound was used for guidance throughout the [...] the density of the breasts and this patient’s biopsy proven diagnosis, bilateral breast MRI may be helpful for further evaluation.[facility] US GUIDED CORE BREAST BIOPSY [id number] 17:50:11Examination:BI US GUIDED CORE BREAST BIOPSY RIGHT The procedure was explained to the patient including benefits and alternatives. ?The risks, including but not limited to infection and bleeding, werereviewed and the patient agreed to undergo the [...] cm from the nipple. ?Short-term follow-up ultrasound in6 months is recommended. ?If final pathology of [...] skin incision was made. ?A 14 gauge Greenwald core biopsy needle was advanced to the target. ?Multiple tissue cores were obtained through the target. ?A RING tissue marker clip was then deployed. Continuous real-time ultrasound was used for guidance throughout the procedure. ?Post biopsy mammogram confirmed the RING clip at the biopsy site. Recommendation:Pending pathology results - Right Portuguese obstetrics gyn physician services were provided. ?[facility] 3 [id number] 22:01:42XR CERVICAL SPINE 3 VW HISTORY: Female 74 years chronic neck pain COMPARISON: Cervical radiographs dated 06/24/2016 FINDINGS: The vertebral bodies are normal in height and in normal alignment. Theatlantodental space is normal. The prevertebral soft tissues areunremarkable. Mild degenerative changes, most pronounced at C5-C6, are similar in degreeto the prior study. 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 The rectosigmoid hasmultiplediverticula without an acute inflammatory change. The rectum has relativelow activity without a discrete focus to suspect another neuroendocrinetumor. OTHER:Lumbar multilevel disc disease more significant at L4-5 and L5-S1.[facility]ellandVitamin B12, [id number] 21:58:26* Test Item Value Reference Range Interpretation Comme nts VIT B12 (test code = 5082674086) 240-930 H WILFREDO (test code = WILFREDO) Biotin has been reported to cause a positive bias, interpret results relative to patient's use of biotin. Lab Interpretation (test code = 83301-5) Abnormal [facility]andComp. Metabolic Panel (44491)2024-01-04 21:10:08* Test Item Value Reference Range Interpretation Comme nts NA (test code = 7799160795) 136 mmol/L 135-145 K (test code = 8883722369) 4.0 mmol/L 3.5-5.0 CL (test code = 8098407821) 97 mmol/L 98-108 L CO2 TOTAL (test code = 2628395766) 29 mmol/L 23-31 AGAP (test code = 1410228049) 10 2-16 BUN (test code = 7137474413) 14 mg/dL 7-23 GLUCOSE (test code = 5825346581) 101 mg/dL 70-110 CREATININE (test code = 2160-0) 0.57 mg/dL 0.50-1.04 TOTAL BILI (test code = 9982649585) 0.5 mg/dL 0.1-1.1 CALCIUM (test code = 0317828493) 9.5 mg/dL 8.6-10.6 T PROTEIN (test code = 7688202642) 7.8 g/dL 6.3-8.2 ALBUMIN (test code = 5723385689) 4.6 g/dL 3.5-5.0 ALK PHOS (test code = 3359409318) 62 U/L 34-122 ALTv (test code = 1742-6) 24 U/L 5-35 AST(SGOT) (test code = 5936976153) 26 U/L 13-40 eGFR (test code = 84374-3) 96.7 mL/min/1.73m2 CKD-EPI eGFR (2020). Assuming creatinine has been stable day-to-day for at least three months, the eGFR indicates Category G1 (>= 90 mL/min/1.73 m2) Lab Interpretation (test code = 39955-5) Abnormal [facility] with [id number] 19:13:23* Test Item Value Reference Range Interpretation [...] 32.9 g/dL 31.6-35.1 RDW-SD (test code = 99731-9) 46.0 fL 39.0-49.9 RDW-CV (test code = 788-0) 13.0 % 12.0-15.5 PLT (test code = 777-3) 223 166-358 MPV (test code = 56799-3) 12.0 fL 9.5-12.9 NRBC/100 WBC (test code = 0249998098) 0.0 0.0-10.0 NRBC x10^3 (test code = 1929063553) See_Comment [Automated me ssage] The system which generated this result transmitted reference range: 10*3/?L. The reference range was not used to interpret this result as normal/abnormal. GRAN MAT (NEUT) % (test code = 770-8) 59.8 % IMM GRAN % (test code = 7952202527) 0.20 % LYMPH % (test code = 736-9) 28.7 % MONO % (test code = 5905-5) 9.6 % EOS % (test code = 713-8) 1.4 % BASO % (test code = 706-2) 0.3 % GRAN MAT x10^3(ANC) (test code = 4441375632) 3.91 10*3/uL 1.88-7.09 IMM GRAN x10^3 (test code = 6022359173) 0.00-0.06 LYMPH x10^3 (test code = 731-0) 1.88 10*3/uL 1.32-3.29 MONO x10^3 (test code = 742-7) 0.63 10*3/uL 0.33-0.92 EOS x10^3 (test code = 711-2) 0.09 10*3/uL 0.03-0.39 BASO x10^3 (test code = 704-7) 0.01-0.07 [facility]ellandLactate [id number] 18:37:13* Test Item Value Reference Range Interpretation Comme nts LDH (test code = 6760476207) 170 U/L 120-246 Lab Interpretation (test cod e = 00213-4) Normal [facility] Met[facility] (NA, K, CL, CO2, GLUCOSE, BUN, CREATININE, CA)2023-10-06 04:31:23* Test Item Value Reference Range Interpretation Comme nts NA (test code = 4178723547) 134 mmol/L 135-145 L K (test code = 7611631495) 4.2 mmol/L 3.5-5.0 CL (test code = 2760944082) 101 mmol/L 98-108 CO2 TOTAL (test code = 9486428597) 26 mmol/L 23-31 AGAP (test code = 6374454683) 7 2-16 BUN (test code = 8245414391) 14 mg/dL 7-23 GLUCOSE (test code = 6956380329) 94 mg/dL 70-110 CREATININE (test code = 1095202993) 0.53 mg/dL 0.50-1.04 CALCIUM (test code = 7724637996) 9.4 mg/dL 8.6-10.6 eGFR (test code = 81418-2) 98.4 mL/min/1.73m2 CKD-EPI eGFR (2020). Assuming creatinine has been stable day-to-day for at least three months, the eGFR indicates Category G1 (>= 90 mL/min/1.73 m2) Lab Interpretation (test code = 16601-1) Abnormal [facility]ellandCbc without [id number] 22:27:50* Test Item Value Reference Range Interpretation [...] 777-3) 284 166-358 MPV (test code = 14997-2) 11.3 fL 9.5-12.9 RDW-CV (test code = 788-0) 12.9 % 12.0-15.5 RDW-SD (test code = 07824-5) 45.4 fL 39.0-49.9 NRBC x10^3 (test code = 6088750311) See_Comment [Automated messa ge] The system which generated this result transmitted reference range: 10*3/?L. The reference range was not used to interpret this result as normal/abnormal. NRBC/100 WBC (test code = 0809784237) 0.0 0.0-10.0 IPF % (test code = 1084852177) Lab Interpretation (test code = 37997-0) Abnormal [facility]andTransthoracic echo (TTE)2023-06-07 23:38:11* Test Item Value Reference Range Interpretation Comme nts Ao root diam (test code = 4174291737) 3.00 cm Aortic root (test code = 6055599834) 3.0 cm Ao root annulus (test code = 5111245468) 3.0 cm BSA (test code = 9995181990) 1.75 m2 LVOT diameter (test code = 1188432865) 1.95 cm LVOT area (test code = 5676934117) 3.00 cm2 LA size (test code = 8476074078) 4.0 cm ACS (test code = 4898365548) 1.78 cm LVIDD (test code = 8052040812) 4.40 cm Left Ventricular End Diastolic Volume by Teichholz Method (test code = 1386601) 86.8 mL IVS (test code = 5820011978) 0.93 cm Interventricular Septum Diastolic Thickness by 2D (test code = 7960458) 0.93 cm LVPWD (test code = 3306508712) 1.08 cm PW (test code = 5287577781) 1.08 cm 0.6-1.1 EF(Teich) (test code = 6689695743) 61.90 % LVIDS (test code = 8423650171) 2.90 cm Left Ventricular End Systolic Volume by Teichholz Method (test code = 8211869) 33.0 mL FS (test code = 3797819910) 33 % EF - 2D (test code = 71597495) 61.90 % TR Peak Yenni (test code = 5365600978) 267.9 cm/s Triscuspid Valve Regurgitation Peak Gradient (test code = 4622761298) 28.7 mmHg PV PEAK VELOCITY (test code = 3774584624) 105.3 cm/s PV peak gradient (test code = 9883786903) 4.4 mmHg MV E-F slope (test code = 7429161827) 41.50 cm/s MV Peak E Yenni (test code = 8446608635) 78.6 cm/s MV Peak A Yenni (test code = 5922456673) 137.8 cm/s E/A ratio (test code = 0383225225) 0.57 ratio MV valve area p 1/2 method (test code = 7476036126) 6.30 cm2 MV dec slope (test code = 7318820256) 647.10 cm/s2 MV P1/2t max yenni (test code = 6387868316) 77.60 cm/s MR max PG (test code = 7049869161) 93.80 mm[Hg] MR max yenni (test code = 8477632968) 484.20 cm/s Mr max yenni (test code = 1188123662) 484.2 m/s LVOT stroke volume (test code = 6946715347) 60.60 cm3 LVOT peak yenni (test code = 3154625009) 115.3 cm/s LVOT mn grad (test code = 3090821931) 2.5 mmHg AV LVOT peak gradient (test code = 7249555100) 5.3 mmHg LVOT peak VTI (test code = 5124523215) 20.3 cm LV V1 mean (test code = 7798953344) 72.40 cm/s Aortic valve mean velocity (test code = 1878033841) 96.6 cm/s Ao peak yenni (test code = 9578341643) 155.6 cm/s Ao VTI (test code = 6148346613) 27.3 cm AV area by cont VTI (test code = 4292784153) 2.2 cm2 AV area peak yenni (test code = 0775299945) 2.2 cm2 Ao max PG (test code = 3499847660) 9.70 mm[Hg] AV peak gradient (test code = 7646253342) 9.7 mmHg AV valve area (test code = 9923518797) 2.22 cm2 AV mean gradient (test code = 4118557643) 4.3 mmHg LAV(MOD-sp4) (test code = 0950560834) 24.50 mL LA Volume Index (BP) (test code = 3892335095) 16.1 mL/m2 LA volume (BP) (test code = 6901878896) 28.1 mL LAV(MOD-sp2) (test code = 9685950174) 30.20 mL Radiology Study observation (narrative) (test code = 73884-1) WILFREDO (test code = WILFREDO) ?Left?Ventricle: Left [...] 2D, color flow Doppler and spectral Doppler. [facility]andGLYCOSYLATED HEMOGLOBIN (A1C)2022-09-29 20:19:39* Test Item Value Reference Range Interpretation Comme nts HGB A1C (test code = 4548-4) 5.9 % 4.0-5.7 H WILFREDO (test code = WILFREDO) Reference RangesNormal: <5.7%Prediabetes: 5.7 - 6.4%Diabetes: > 6.5% Lab Interpretation (test code = 97969-5) Abnormal [facility]andCOMP. METABOLIC PANEL (03340)2022-09-29 19:47:41* Test Item Value Reference Range Interpretation Comme nts NA (test code = 8659270657) 135 mmol/L 135-145 K (test code = 3310035368) 4.6 mmol/L 3.5-5.0 CL (test code = 9341843737) 100 mmol/L 98-108 CO2 TOTAL (test code = 8573044634) 24 mmol/L 23-31 AGAP (test code = 8277074209) 2-16 BUN (test code = 4271542762) 12 mg/dL 7-23 GLUCOSE (test code = 9856035174) 92 mg/dL 70-110 CREATININE (test code = 5008938942) 0.46 mg/dL 0.50-1.04 L TOTAL BILI (test code = 3192845036) 0.8 mg/dL 0.1-1.1 CALCIUM (test code = 0054817878) 9.1 mg/dL 8.6-10.6 T PROTEIN (test code = 7280216565) 8.3 g/dL 6.3-8.2 H ALBUMIN (test code = 6337293786) 4.9 g/dL 3.5-5.0 ALK PHOS (test code = 7464962774) 46 U/L 34-122 ALTv (test code = 1742-6) 27 U/L 5-35 AST(SGOT) (test code = 9027185531) 31 U/L 13-40 eGFR (test code = 8181091719) mL/min/1.73m2 WILFREDO (test code = WILFREDO) Association [...] imaging tests). Lab Interpretation (test code = 51788-3) [facility]normal [facility] BranchLIPID PANEL (48953)(TOTAL CHOLESTEROL, TRIGLYCERIDES, HDL)2022-09-29 19:47:41* Test Item Value Reference Range Interpretation Comme nts CHOL (test code = 6166683461) 245 mg/dL 120-200 H HDL (test code = 7242664801) 49 mg/dL See_Comment L [Automated messa ge] The system which generated this result transmitted reference range: >=50. The reference range was not used to interpret this result as normal/abnormal. HDLC RATIO (test code = 6906982178) See_Comment H [Automated messa ge] The system which generated this result transmitted reference range: <=4.5. The reference range was not used to interpret this result as normal/abnormal. TRIG (test code = 9569360603) 288 mg/dL 30-170 H LDL CHOL (test code = 46362-7) 138 mg/dL See_Comment [Automated messa ge] The system which generated this result transmitted reference range: <=160. The reference range was not used to interpret this result as normal/abnormal. VLDL (test code = 3296262812) 58 mg/dL 5-60 Lab Interpretation (test code = 15750-2) Abnormal [facility]andABDOMEN 1 [id number] 23:37:00 *.*.*.*.*.*.*.*.*.*.*.*.*.*FINAL*.*.*.*.*.*.*.*.*.*.*.*.*.*.*EXAM:ABDOMEN, 1 VIEW-INPATIENT PORTABLES HISTORY: LAPAROSCOPIC ROBOTIC ASSISTED SACROCOLPOPEXY [1774] LAPAROSCOPICROBOTIC ASSISTED VAGINALHYSTERECTOMY [669] LAPAROSCOPIC ROBOTIC ASSISTEDSALPINGO-OOPHORECTOMY [665] CYSTOSCOPY [279 COMPARISON: None available. 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 Follow up PET negative for rectal disease but right breast mass abnormality appreciated. Diagnostic mammogram and US showed 1.3 cm lesion 12 o clock 5cfn. Path showed G2, ER/AK positive, HER2 negative, Ki-67 20% IDC with ring left behind. Plans to proceed to the OR today for right partial masectomy with SLNB for IDC. There have been no major changes in symptoms or history. Past Medical History: Patient has a past medical history of Anxiety, Bilateral foot pain (02/07/2018), Breast disorder, Chronic pain, Depression, HTN (hypertension), benign, Hypercholesteremia, Osteoporosis (10/05/2023), and Prediabetes (05/11/2017). She has no past medical history of Abnormal uterine bleeding, Anemia, Anesthesia complication, Asthma, Autoimmune disorder, Blood dyscrasia, Cancer, Clotting disorder, Coronary artery disease, Diabetes mellitus, Endometriosis, Female infertility, Genital herpes, Genital warts, Heart murmur, Hormone disorder, Human immunodeficiency virus (HIV) disease, Kidney disease, Leiomyoma of uterus, Liver disease, Menstrual disorder, Pap smear abnormality of cervix, PID (pelvic inflammatory disease), Rh incompatibility, Seizures, Sickle cell anemia, Substance abuse, Superficial thrombophlebitis, Thyroid disease, Transfusion history, Trauma, Tuberculosis, or Urinary incontinence. Past Surgical History: Patient has a past surgical history that includes breast lumpectomy (2009); colonoscopy; laparoscopic robotic assisted sacrocolpopexy (N/A, 07/03/2017); laparoscopic robotic assisted vaginal hysterectomy (N/A, 07/03/2017); laparoscopic robotic assisted salpingo-oophorectomy (Bilateral, 07/03/2017); cystoscopy (N/A, 07/03/2017); esophagogastroduodenoscopy (Left, 10/17/2023); and colonoscopy (Left, 10/17/2023). Family History: Patient's family history includes Arthritis in her sister; Cancer (age of onset: 65) in her maternal grandmother; Cancer (age of onset: 75) in her paternal uncle; Depression in her sister; Diabetes in her sister; Hypertension in her father and mother; Osteoporosis in her sister. Social History: Patient reports that she has never smoked. She has never used smokeless tobacco. She reports that she does not drink alcohol and does not use drugs. Objective: Vitals: Physical exam: General: awake and alert Chest: unlabored breathing with bilateral chest rise Extremities: no gross deformities or injuries Abdomen: no rebound, guarding, or point tenderness Skin: no rashes present Laboratory: My interpretation of relevant result is: NA Radiology: My interpretation of relevant result is: See HPI Assessment: Patient is presenting with R IDC and is amenable to surgical intervention. After a discussion of the risks, benefits, and alternatives of the procedure, they would like to proceed with surgical intervention. Consent has been obtained. She is marked. Plan: Plan to proceed to the OR for R PM with SLNB Walt Luong MD 06/05/2024 20:08 I saw and examined this patient on the date of service indicated. I discussed the plan with the resident team including Dr. Cherise Neri MD Surgical Oncology [facility]-SURGICAL ONCOLOGY STAFF [facility] 2023-10-16 15:00:23 Endoscopy H & P Age: [...] complete the procedure, cardiovascular complications such as IL, stroke, arrhythmia, and . Informed consent obtained/verified. Dominique Schwab MD [facility] Extension Agent Gastroenterology [facility] Notes Date/Time Note Provider Source 2024-12-19 10:01:54 Patient notified and verbalized understanding, patient has appointment on 03/24/25. [facility] 2024-12-17 18:31:58 Patient requesting for Provider to review Dexa scan results and provide recommendations. Please review and advise. ANGI 11/19/24 [facility] 2024-12-17 14:00:31 Patient would like to speak to a nurse regarding her DEXA results. T Lucero Fletcher [facility] 2024-12-06 10:19:24 Per pt was already seen in office this week. And aware she sent it back. Due to skin irritations. [facility] 2024-10-23 12:45:42 Patient and patients given discharge instructions on palpitations with regular cardiac rhythm. Pt given prescription X 1 for meclizine. Advised to follow up with pcp. Pt left ER ambulatory with . No signs of distress. [facility] Karma Reddy RN [facility] 2024-10-23 10:47:59 CC: patient presents to the ER with complaints of palpitations that began "a while ago" and worsened recently. Patient states she has also been dizzy. Awake, alert, oriented, resp reg unlabored, skin warm and dry, color appropriate for race, moves all ext without difficulty, amb without assistance. Appears in no distress. [facility] Julia Hampton RN [facility] 2024-09-06 12:40:46 Patient notified of all and reports ongoing pain. She stated was unable to make ortho appt d/t current radiation treatments. Patient to schedule a f/u appt as soon as time allows. Please review. [facility] 2024-09-05 06:50:58 There are no lab results. There was a normal duplex 08/19/24. [facility] 2024-08-29 10:09:41 Sonia Fairchild is a 74 year old female and she is calling to request a call from the clinic regarding her result for her labs. Please contact and advise. [employer] Sonia Ferguson [facility] 2024-08-15 09:52:50 Tried to call, no answer. Can review results with her at her next appt with me. Yassine Neri MD Surgical Oncology METRIC TECH [facility]-SURGICAL ONCOLOGY STAFF [facility] 2024-08-12 15:50:42 Results sent to . METRIC TECH Bhumi Frey RN [facility] 2024-08-12 15:39:03 Received and scanned results from [facility] SH Tabor [facility] 2024-08-12 14:44:51 Spoke to Sonia Fairchild and informed her that Dr. Neri would be giving her a call with her results... She is very eager to know. I just reminded her that the doctor would be calling when he has a chance. SH Anaya MA [facility] 2024-08-12 13:52:39 Sonia Fairchild Patient calling in requesting to speak to someone in the clinic about labs results and if they are back yet . Please contact patient and advise SH Lomas [facility] 2024-08-07 08:08:04 Routed this message to Dr. Ding. SH Wharton RN [facility] 2024-08-06 16:27:56 Images from the original note were not included. I called patient to let them know that the day we had discussed was unavailable so I let them know of the approved day they could be scheduled Per Dr Bobo. The patient gave the phone over to her and he was very upset and said we were giving them the run around, he then proceeded to cuss at sc then hung up the phone. I was un able to schedule the appt due to the disconnection. SH Russell [facility] 2024-08-05 11:49:23 Please review and sign if appropriate: Last office visit: 07/16/24 Next office visit: 11/19/24 Requested Prescriptions Pending Prescriptions Disp Refills SUCRALFATE 1 gram tablet [Pharmacy Med Name: SUCRALFATE 1GM TABLETS] 360 tablet 1 Sig: TAKE 1 TABLET BY MOUTH FOUR TIMES DAILY Last fill date: 07/24/23 Notes: Epigastric pain [facility] [facility] 2024-07-30 16:29:41 Oncotype and Lab MISC orders placed and sent. [facility] 2024-07-26 16:16:09 Patient notified of all and verbalized understanding. No further needs were voiced. [facility] 2024-07-26 14:57:00 .Notified Patient of Test Results and Recommendations She states she is still having pain and would like a referral [facility] Pat Galo MA [facility] 2024-07-26 14:23:25 She will need to discuss that with the surgery and oncology team. The tumor they removed had invasive ductal carcinoma per pathology. What was left was a fibroadenoma, which is benign. However, if she is experiencing symptoms, that can be surgically excised. [facility] 2024-07-25 09:31:20 Patient stated that she has had 1 of 2 tumors removed from her right breast, but feels that the wrong one was removed as she cont to experience pain. She is requesting further testing be completed to confirm previous excision was completed correctly. Please review and advise. [facility] 2024-07-24 09:03:32 Called Patient, No answer, Left message to call back. [facility] Giovana Mayfield RN [facility] 2024-07-23 16:38:04 What type of study would she like? For what area of concern? I recommend discussing with the oncology team. [facility] 2024-07-22 14:16:38 Pt is requesting another test to check for cancer and would like to be contacted to know when test would be ready. Please review and advise. [facility] 2024-07-09 10:18:36 Medication refilled per policy: Last office visit: 06/10/24 Next office visit: 07/16/25 Requested Prescriptions Pending Prescriptions Disp Refills FLUTICASONE PROPIONATE 50 mcg/actuation nasal spray [Pharmacy Med Name: FLUTICASONE 50MCG NASAL SP (120) RX] 16 g 0 Sig: SHAKE LIQUID AND USE 2 SPRAYS IN EACH NOSTRIL DAILY Last fill date: 05/30/24 Notes: Allergy, subsequent encounter METRIC TECH [facility] 2024-07-08 15:45:00 This case was discussed at Multidisciplinary Breast Tumor Board on 07/02/24 Clinical Summary and Stagin74 year old woman with AJCC 8th Edition Right IDC Clinical Stage [id number] G2 ER/AK+, HER2 neg, Ki67 20% s/p PM. Path Stage IA, G2 IDC (pT1c,cN0,cM0) ER 99%, AK 70%, Her2 negative, Ki67 20%. All margins widely negative. The group discussion included input from Surgical Oncology, Breast Imaging, Medical Oncology, Radiation Oncology and Surgical Pathology. Group Consensus Recommendations: -Radiation Oncology will have discussion with regarding the patient options for omission vs partial radiation vs whole breast radiation, pros and cons, risks and benefits. -Med Oncology requested OncotypeDX and will discuss results with patient to guide adjuvant recommendations regarding chemotherapy. Endocrine therapy is recommended. Genetics Referral: Yes, pending. Plastic Surgery Offered: Yes, patient declined. Possible Applicable Clinical Trials: Currently eligible for none. Management consistent with national guidelines: yes, NCCN [facility] ANDREY-SURGICAL ONCOLOGY STAFF [facility] 2024-07-02 08:17:26 Images from the original note were not included. Referral from: Dr. Cristina Mejia Referral date: 05/02/24 Past appts: Established w/ Dr. Neri Surg/Onc since 04/20/24 Dr. Jama Main 01/02/24 Referrals/ Future appts: Rad Onc referral placed 06/18/24 Accompanying the pt to the appt: Steve Fairchild - spouse CC & Referral Diagnosis: Breast Cancer Breast imaging history: Screening MM08/24/23 Diagnostic Sohail/US Breast: 03/26/24 PET: 02/19/24 Surgical History: R Breast biopsy: 04/09/24 Path report: Biomarkers: R Breast biopsy: 04/23/24 Path report: R Breast Lumpectomy : 06/06/24 Path report: Pathology over read: (Internal) Family history of cancer: M Grandmother - Cervical CA diagnosed at 65 P Uncle - Stomach CA diagnosed at 75 Niece - Breast CA diagnosed at 30 Genetic Testing: BRCA - not done Dial Maker history: Menarche age 14 Menopause 56 HRT for about 3 months during menopause OCP - none Pap smear in her 50's - normal Mrs. Fairchild is a 74 y/o female with newly diagnosed breast cancer. Pt had been undergoing workup of a rectal neuroendocrine tumor by the GI/oncology services. During this management she underwent a PET scan on February 19, 2024. This incidentally noted a density within the right breast measuring 1.8 cm. She consequently underwent a diagnostic tomosynthesis on March 26, 2024. This noted that within the right breast there was an irregular mass with spiculated margins and architectural distortion at the 12 o'clock position approximately 5 cm from the nipple. This was favored to correlate with the PET finding. On ultrasound was performed on the same day and this noted a 13 x 10 x 11 mm mass correlating with the mammographic finding. In addition to this there was a mass at the 9 o'clock position 2 cm from the nipple measuring 6 x 6 x 3 mm. There was no suspicious lymphadenopathy noted on the right side. On 04/09/24 she underwent biopsy of both masses. For the mass at the 12 o'clock position a ring clip was placed. And for the 9:00 mass a coil marker was placed. Pathology noted that the 9:00 mass was benign, fibroadenoma with usual ductal hyperplasia with microcalcifications ([facility] pathology). The 12:00 mass was noted to be an invasive ductal carcinoma, moderately differentiated, G2. There was concomitant DCIS with solid and cribriform patterns. ER positive. ([facility] pathology). Pt is a [employer] and does not want blood products. PMH: HLD, HTN, Diverticulosis, Anxiety/Depression, Prediabetic, Neuroendocrine tumor (10/17/23) Surg Hx: L Breast lumpectomy (2009) Navigation Note Nurse Navigation - 07/02/24 0800 Referral Data Referral date 05/02/24 Actual appointment date 07/09/24 Type of encounter Telephone Call Conference call with Patient Type of visit New Patient Appt;Provider Name;Specialty Specialty Medical Oncology Referral source list Referring Provider Imaging Imaging Screening Mammogram;Diagnostic Mammogram;PET-CT Screening Mammogram date 08/24/23 DIagnostic Mammogram date 03/26/24 PET-CT date 02/19/24 Image location [facility] Pathology Pathology date performed 06/06/24 Pathology type/pathology entered Surgical Referring Diagnosis Referring diagnosis Malignant Malignant laterality Right Malignant diagnosis Invasive ductal carcinoma Biomarkers ER;AK Assessment Patient needs/barriers to care list Language assistance;Coordination of care;Education Intervention list Care coordination;Complex scheduling;Education;Language assistance Education list Surgical education;Multidisciplinary team approach;Treatment options Referrals list Medical oncology;Nurse navigator;Radiation oncology;Surgical oncology Genetics screen initiated No First treatment intervention type/date Surgery Continuum of care Diagnosis/active treatment This provider spoke with Sonia Fairchild in preparation for patients upcoming visit with Dr. Gregory at [facility]. I introduced myself and the role of the Nurse Navigator and how I would be a contact for her throughout treatment. Navigation services' direct contact information was provided to the patient. Hand-off communication was provided to Dr. Gregory and team in advance of the new patient appt. This provider spent a total time of 60 minutes in patient interview, patient education, and coordination of care. Karma ZHU, RN Navigation Services, [facility] Karma Bond RN [facility] 2024-06-27 10:44:36 Patient & spouse came in office this morning to get appointment and spouse was very upset because was in pain and needed paperwork filled out before they could removed tooth. Mariana Purcell was the only one that had a opening. Spouse was very rude to not only my self but to other PSS's and I gave him the first opening I saw and he was happy with that. Geni Luna [facility] 2024-06-13 10:27:21 Images from the original note were not included. Notes: Last Refilled: Name from pharmacy: VITAMIN D2 50,000IU (ERGO) CAP RX Will file in chart as: ERGOCALCIFEROL, VITAMIN D2, 1,250 mcg (50,000 unit) capsule Sig: TAKE ONE CAPSULE BY MOUTH ONCE EVERY MONTH Disp: 12 capsule Refills: 0 (Pharmacy requested: Not specified) Start: 06/13/2024 Class: eRX For: Vitamin D deficiency Last ordered: 1 year ago (05/18/2023) by Cristina Mejia MD Last refill: 02/26/2024 Rx #: [id number]|0|1 Off-Protocol Eutdwh4906/13/2024 10:26 AM Protocol Details Medication not assigned to a protocol, forward to provider. Valid encounter within last 12 months To be filled at: [facility] #[id number] [place], [place] - [facility] AT [employer] - [email or web address] [employer] Recent Visits Date Type Provider Dept 06/10/24 Office Visit Ilia Barnes MD [facility] 05/16/24 Office Visit Mariana Purcell PA [facility] 04/05/24 Office Visit Cristina Mejia MD [facility] 03/06/24 Office Visit Mariana Purcell PA [facility] 01/04/24 Office Visit Cristina Mejia MD [facility] 12/04/23 Office Visit Ilia Barnes MD [facility] 10/19/23 Office Visit Ilia Barnes MD [facility] 07/31/23 Office Visit Cristina Mejia MD [facility] 05/18/23 Office Visit Cristina Mejia MD [facility] 04/25/23 Office Visit Cristina Mejia MD [facility] Showing recent visits within past 540 days with a meds authorizing provider and meeting all other requirements Future Appointments Date Type Provider Dept 07/16/24 Appointment Cristina Mejia MD [facility] 07/22/24 Appointment Cristina Mejia MD [facility] Showing future appointments within next 150 days with a meds authorizing provider and meeting all other requirements Amparo Monge MA [facility] 2024-06-12 09:42:24 Spoke with patient using parcel post clerk. Informed patient per the discharge note she can shower, not soak, and she can pat the incision to dry. Patient agreeable. Also informed patient no heavy lifting or lifting the arm above the shoulder until he is cleared at the follow up visit, patient agreeable. Janee Oliver RN 06/12/2024 9:43 AM Janee Oliver RN [facility] 2024-06-11 10:24:32 Sonia Fairchild is a 74 year old female Patient is calling asking for a call back from the nurse in regards to if she is able to take a shower and if she can get the incision area wet Patient also states she was told not to lift, bend down and rise her arm and is asking for how long Please advise [phone] (home) [facility] - [address] [place] [address] Bethany Garcia [facility] 2024-06-10 09:45:00 Addended by: ILIA BARNES MD on: 06/10/2024 09:59 AM Modules accepted: Orders [facility] 2024-06-08 15:29:42 Sonia Fairchild is a 74 year old female Patient is calling she had breast surgery on 06/06/2024 and states the band that was placed around her body is too tight is she is able to remove it for a bit. ? She would like to speak to a nurse she has other questions. 1st call to gen surgery cloth sponger @ 3:20 Dr. Yassine Neri answered @ 3:21 and was connected to the patient. Maricarmen Valles [facility] 2024-06-06 08:49:09 Date of Surgery: June 06, 2024 Procedure: Right Segmental Mastectomy, Intraoperative Fluoroscopy, Intraoperative Ultrasonography, Pectoral Nerve Block Surgeon: Yassine Neri MD. Assistants: Walt Luong MD. Pre-operative Diagnosis: Right breast cancer Post-operative Diagnosis: Same Anesthesia: General Anesthesia Findings in brief: Clip in final specimen Fluids: - EBL: 5cc Indications: 74-year-old female with a newly diagnosed right breast IDC. 1.3 cm. G2. ER positive. AK positive. HER2 negative. Ki-67 20% [id number] Stage IA Upper Outer and Inner Quadrant. Procedure in detail: The patient was brought into the operating room. In accordance with WHO guidelines, a preanesthetic checklist was performed. The patient was transferred to the operating room table. All pressure points were padded. Pneumatic compression boots were placed. General anesthesia was induced. A pre-injection timeout was performed. Radioactive nucleotide was injected into the affected breast by the nuclear medicine team. The patient's right breast and axilla were then prepped and draped in the standard, sterile fashion. A pre-incision timeout was performed during which receipt of appropriately timed DVT prophylaxis and antibiotics was discussed. A PECS I and II block was performed using US guidance. A gamma probe was used to confirm radioactivity in the axilla, none was present. We opted to forgo axillary dissection, given her age >70 and HR+ tumor. Fluoroscopy was used to identify the previously deployed clip. A celine-areolar incision using a prior scar was made and skin flaps were raised. A round block approach was used to excise the lesion using image guidance. The specimen was oriented and marked. Post-excision imaging confirmed the clip within the specimen. Three additional margins (inferior, lateral and posterior) were also excised and marked. The surgical beds were irrigated and hemostasis achieved. The wounds were then closed in layers using 3-0 Vicryl and 4-0 Moncryl. They were then washed and dressed in sterile fashion with dermal adhesive. At the conclusion of the case, all lap, needle, and instrument counts were correct. The patient was awoken from anesthesia and taken to the PACU for ongoing care. She was in stable condition. Specimens: Right breast segmental mastectomy, additional lateral, posterior and inferior margin Complications: None I was present and actively participated in all critical portions of this case. Yassine Neri MD Surgical Oncology Partial mastectomy 35931 Intraoperative Fluoroscopy [address] [place] [id number] Gamma Probe [id number] [facility] 2024-05-27 16:42:05 .Notified Patient of Test Results and Recommendations Pat Galo MA [facility] 2024-05-27 13:41:37 Sonia Fairchild is a 74 year old female Patient is calling to request a nurse contact her to go over her lab results. Please advise. Aron Ribeiro [facility] 2024-05-24 13:55:12 Sonia Fairchild is a 74 year old female patient requesting to speak with a nurse to go over lab results. Please advise. Valente Gamino [facility] 2024-05-23 09:42:36 Attempted to contact patient. No answer. Left message to call back. Closing encounter. Will address in open result note. Helen Abraham LVN [facility] 2024-05-22 16:44:51 Result note sent [facility] 2024-05-22 16:26:08 Please review lab results from 05/16 so they can be discussed with patient [facility] 2024-05-22 15:35:30 Sonia Fairchild is a 74 year old female Is calling back to check to see if blood test results are in and she would like a call back [phone] Charlse Cochran [facility] 2024-05-21 10:14:16 First attempt to contact patient, left voicemail to return clinics call. Lab have not been resulted by provider yet. Yamini Jordan MA [facility] 2024-05-21 09:33:33 Patient is calling to speak about her lab results. Patient would like a supervisor bonding. Please advise Callback: [phone] Blake Marquis [facility] 2024-05-16 11:15:00 Images from the original note were not included. Venipuncture collection performed by clean technique on the left anticubitus. Total of 1 attempts were made. Slight pressure and a bandage/dressing were applied to the site(s). The patient experienced no complications. The following specimens were processed according to instructions and sent to [facility] laboratories per lab order on 05/16/2024 : LT BLUE 1 SST 1 RED LAV 2 PPT DK GREEN (LiHep) DK GREEN (SodH) EDGE DK BLUE (K2) DK BLUE (S) ACD Blood Culture NIPT/NTD [facility] 2024-04-26 14:25:19 Spoke to pt orders note released, told her as soon as released we will call her back. Vera Tripp [facility] 2024-04-26 10:54:07 Patient is requesting a call in regards to breast imaging results. Please advise. Cameron De La Garza [facility] 2024-02-29 12:30:33 New order placed. Thanks. CK! [facility] 2024-02-28 14:21:26 TCB Zara Kent LVN 02/28/2024 Please review and advise. T [facility] 2024-02-28 13:21:17 Sonia Fairchild is a 74 year old female, Ila with [facility] Radiology requesting order for diagnostic mammogram, due to results of Pet scan. Ila with radiology requesting that nurse call patient and discuss the reason why she needs diagnostic mammogram instead of a regular mammogram Sania Quiñones [facility] 2024-02-26 10:45:56 Navigation Follow Up Note: Spoke [...] plan. Kelsey SPRINGER, RN- Nurse Navigator-MDA at [facility] Kelsey Salgado RN [facility] 2024-02-26 09:07:33 Spoke with patient and relayed the information per Dr. Mejia. Patient voiced understanding. Giovana Mayfield RN [facility] 2024-02-26 08:41:06 Please let Ms. Fairchild know I ordered a mammogram. She is due for screening and they saw a spot on the Pet Scan. Best, Dr. Mejia [facility] 2024-02-21 16:17:41 Navigation Follow Up Note: Received email from Med/Onc team requesting PET be scheduled prior to Med/Onc FU appt. Action Plan: Email sent to Radiology scheduling with request as well as Med/Onc schedulers. POC: PET scheduled 02/19/24. Med/Onc FU scheduled 03/04. Kelsey SPRINGER, RN- Nurse Navigator-MDA at [facility] Kelsey Salgado RN [facility] 2024-02-15 15:47:23 Called [facility] Radiology department, spoke with Cassie. She was given patients information, and informed of patients need for an parcel post clerk, she said she was going to get her scheduled. Mallorie Whatley LVN [facility] 2024-02-15 13:06:26 Discussed patient concerns over the [...] for scheduling to which she agreed. GI ground support agent (I have spoken with them) will assist patient to ensure scan is scheduled and that patient understands the instruction. Dominique Schwab MD [facility] Extension Agent Gastroenterology [facility] 2024-02-15 11:37:57 Using an parcel post clerk, contacted the patient. When she learned that [...] the doctor. And its an urgent issue. [facility] 2024-02-15 09:28:47 Sonia Fairchild is a 73 year old female is calling to speak to the doctor. She did not give any more information other than it's urgent. Misa Gaitan [facility] 2024-02-06 10:15:00 Images from the original note were not included. Patient has been identified by and name and was provided with cup, antiseptic towelette, and clean catch instructions. 1 urine specimen(s) sent. Unpreserved Urine Culture 1 Aptima tube Other urine [facility] 2024-01-04 09:30:00 Images from the original note were not included. Venipuncture collection performed by clean technique on the left anticubitus. Total of 1 attempts were made. Slight pressure and a bandage/dressing were applied to the site(s). The patient experienced no complications. The following specimens were processed according to instructions and sent to [facility] laboratories per lab order on 01/04/2024 : LT BLUE SST 4 RED LAV 1 PPT DK GREEN (LiHep) DK GREEN (SodH) EDGE DK BLUE (K2) DK BLUE (S) ACD Blood Culture NIPT/NTD [facility] 2024-01-04 08:40:00 Addended by: CRISTINA MEJIA on: 01/05/2024 09:11 PM Modules accepted: Level of Service [facility] 2024-01-02 13:00:00 Addended by: TIANNA JIN MD on: 01/02/2024 05:11 PM Modules accepted: Level of Service IM-HEMATOLOGY & ONCOLOGY STAFF [facility] 2023-12-04 11:31:00 Called patient verified name and . Spoke with her and she requested Aircraft Time Clerk Called for the parcel post clerk [id number] Lyndsey I was able to speak to [...] if the clinic has an opening. The parcel post clerk felt that the questions were answered. Nancy Taylor RN [facility] 2023-12-04 10:06:41 Patient came into clinic requesting results from procedure preformed on 10/17/2023. Please call patient to give results or if they need to go in for a follow up appointment. Chela Hu [facility] 2023-12-04 10:00:00 Addended by: ILIA BARNES MD on: 12/04/2023 10:01 AM Modules accepted: Orders [facility] 2023-11-01 09:25:57 Had 7 polyps, path pending. Keep her GI follow up METRIC TECH [facility] 2023-10-27 10:16:00 I do not see that the colonoscopy has been resulted on. Please review and result. Thank You. METRIC TECH Giovana Mayfield RN [facility] 2023-10-27 08:53:37 Sonia Fairchild is a 73 year old female Pt is returning clinics ph call in regards to colonoscopy that was done on 10/17/23. [phone] (home) METRIC TECH Jessica Spence [facility] 2023-10-26 10:08:41 Called patient and no answer. SH Taylor RN [facility] 2023-10-25 08:34:58 Pathology results are still in process. SH Grande RN [facility] 2023-10-24 09:10:15 Sonia Fairchild is a 73 year old female Pt is calling for results from her colonoscopy on 10/17/23. Please advise SH Cisneros [facility] 2023-10-12 15:50:33 Images from the original note [...] Mejia MD Last refill: 07/08/2023 Rx #: [id number]|0|1 Cardiovascular: Antilipid - HMG-CoA Reductase Inhibitors [id number]/11/2023 03:35 AM Protocol Details Valid encounter within last 12 months Total Cholesterol within 360 days LDL within 360 days HDL within 360 days Triglycerides within 360 days AST in normal range and within 360 days ALT in normal range and within 360 days To be filled at: [id number] - [place], [place] [address] [facility] Disp Refills Start End ADDIS lisinopriL 40 mg tablet -- -- -- -- Sig: Take 1 tablet by mouth daily. Class: Historical Med Route: Oral Order: [id number] Date/Time Signed: 10/05/2023 14:18 Recent Visits Date [...] authorizing provider and meeting all other requirements METRIC TECH Amparo Monge MA [facility] 2023-10-10 16:38:26 Sonia Fairchild is a 73 year old female Pt is calling stating medication was supposed to be sent to pharmacy before colonoscopy procedure on 10/17 , states she went to pharmacy and medication is not there Please advise, thank you. SH Workman [facility] 2023-10-06 11:54:25 Patient is requesting letter for refusal of blood products to provide to GI prior to EGD/Colonoscopy procedures. [facility] 2023-10-05 15:00:00 Images from the original note were not included. Venipuncture collection performed by clean technique on the left anticubitus. Total of 1 attempts were made. Slight pressure and a bandage/dressing were applied to the site(s). The patient experienced no complications. The following specimens were processed according to instructions and sent to [facility] laboratories per lab order on 10/05/2023: LT BLUE SST 1 RED LAV 1 PPT DK GREEN (LiHep) DK GREEN (SodH) EDGE DK BLUE (K2) DK BLUE (S) ACD Blood Culture NIPT/NTD [facility] 2023-05-22 13:19:52 Formatting of this n ote might be different from the original. Patient notified referral placed. Zara Kent LVN [facility] 2023-05-22 12:51:12 Formatting of this n ote might be different from the original. Signed, thanks! [facility] 2023-05-22 09:08:00 Formatting of this n ote might be different from the original. Please review and sign if appropriate [facility] 2023-05-19 16:58:06 Formatting of this n ote might be different from the original. SOMALI SPEAKING PT WITH MANAGER FINANCIAL REPORTING ASSISTANCE: Pt says her insurance will not cover her going to the [facility] physical chemistry professor and wants to go to [facility] gastro instead, please call with recommendation. Brina Villagran [facility] 2023-04-26 13:34:20 Formatting of this n ote might be different from the original. 90 day conversion [facility] 2023-04-21 14:07:55 Formatting of this n ote [...] Mejia MD Last refill: 12/29/2022 Rx #: [id number] Metabolics Passed 04/21/2023 02:03 PM Protocol Details Valid encounter within last 12 months To be filled at: [id number] - [place], [place] - [address] [facility] Recent Visits Date Type Provider Dept 12/29/22 [...] Provider Dept 04/25/23 Appointment Cristina Mejia MD [facility] Showing future appointments within next 150 days with a meds authorizing provider and meeting all other requirements Helen Abraham LVN [facility]
[2024-12-24] MEDS ORDERED: ASPIRIN 81 MG CHEWABLE TABLET ONE (19:40)
--- NOTE | 2024-12-24 19:47 | RAD REPORT ---
EXAMINATION: ONE VIEW CHEST XR CLINICAL INDICATION: CHEST PAIN TECHNIQUE: Frontal chest projection is submitted. Examination is limited by patient positioning and t echnique. COMPARISON: 05/29/2024 FINDINGS: The lungs are diffusely emphysematous but grossly clear. The heart is upper limit of normal in size. No displaced fractures identified. IMPRESSION: COPD without an acute process suspected.
[2024-12-24 19:55] LABS: Absolute Eosinophils 0.1 K/uL (0-0.5); Absolute Lymphocytes (CBC) 1.8 K/uL (0.7-4.9); Absolute Monocytes 0.7 K/uL (0.1-1.3); Absolute Neutrophil 4.5 K/uL (1.8-8.0); Basophils % 0.3 % (0-1.3); Eosinophils % 1.7 % (0-4.4); Hematocrit 39.1 % (36.0-45.0); Hemoglobin 13.4 g/dL (12.0-15.0); Lymphocytes % 25.5 % (15.3-44.8); MCH 31.6 pg (27.0-35.0); MCHC 34.2 g/dL (32.0-36.0); MCV 92.5 fL (80-100); MPV 9.1 fL (7.6-11.3); Monocytes % 9.4 % (3.3-12.3); Neutrophils % 63.1 % (41.7-73.7); Platelets 201 thou/uL (152-406); RBC Red Blood Cell Count 4.23 M/uL (3.86-4.86); Red Cell Distribution Width 13.2 % (12.1-15.2)
[2024-12-24 20:12] LABS: ALT/SGPT 26 U/L (13-56); AST/SGOT 14 U/L (15-37); Albumin/Globulin Ratio 1.1 (1.1-1.8); Alkaline Phosphatase 48 U/L (45-117); Anion Gap 8.9 mEq/L (5.0-15.0); BUN Blood Urea Nitrogen 11 mg/dL (7-18); Bicarbonate 25 mEq/L (21-32); Bilirubin Total 0.4 mg/dL (0.2-1.0); Globulin 3.8 g/dL (2.3-3.5); Glomerular Filtration Rate 94 ml/min (=/>90); Glucose Level 126 mg/dL (74-106); Magnesium 2.3 mg/dL (1.6-2.4); NT PRO-BNP 58 pg/mL (<125); Potassium 3.9 mEq/L (3.5-5.1); Protein, Total 7.8 g/dL (6.4-8.2); Sodium Level 132 mEq/L (136-145)
[2024-12-24 20:13] LABS: Bilirubin Direct < 0.2 mg/dL (0-0.2); Bilirubin Indirect, Calculated 0.2 mg/dL (0.2-0.8); Troponin High Sensitivity < 3.0 pg/mL (<58.9)
--- NOTE | 2024-12-24 21:16 | ER ---
Nurse's Notes [facility] Name: Mary Ortega Age: 74 yrs Sex: Female : 1950 Arrival Date: 12/24/2024 Time: 19:06 Bed 25 Private MD: Diagnosis: Chest pain, unspecified Presentation: 12/24 19:22 Chief complaint: Patient states: Left sided chest pain onset today. PT states that the cm10 pain radiates down left arm and she is also having a headache. Coronavirus screen: Client denies travel out of the [place] in the last 14 days. Ebola Screen: Patient denies travel to an Ebola-affected area in the 21 days before illness onset. Initial Sepsis Screen: Does the patient meet any 2 criteria? HR > 90 bpm. Does the patient have a suspected source of infection? No. Patient's initial sepsis screen is negative. Risk Assessment: Do you want to hurt yourself or someone else? Patient reports no desire to harm self or others. Onset of symptoms was December 24, 2024. 19:22 Method Of Arrival: Wheelchair cm10 19:22 Acuity: MYKE 2 cm10 Triage Assessment: 19:30 General: Appears in no apparent distress. comfortable, Behavior is calm, cooperative, rg5 appropriate for age. 19:30 Pain: Complains of pain in chest. EENT: No deficits noted. Neuro: Level of rg5 Consciousness is awake, alert, obeys commands, Oriented to person, place, time, situation. Cardiovascular: Reports chest pain. Respiratory: Airway is patent Trachea midline Respiratory effort is even, unlabored. GI: Abdomen is round non-distended. : No signs and/or symptoms were reported regarding the genitourinary system. Derm: Skin is intact, Skin is dry, Skin is normal, Skin temperature is warm. Musculoskeletal: Circulation, motion, and sensation intact. Range of motion: intact in all extremities. Historical: - Allergies: 19: No Known Allergies; cm10 - Home Meds: 19:23 lisinopril 20 mg Oral tab 1 tab once daily [Active]; pravastatin 40 mg oral tablet 1 cm10 tab daily [Active]; anastrozole 1 mg oral tablet 1 tab daily [Active]; carvedilol 3.125 mg oral tablet 1 tab 2 times per day [Active]; - PMHx: 19:23 Back pain; Chronic back and neck pain; Hyperlipidemia; Hypertension; Breast Cancer; cm10 - PSHx: 19:23 hysterectomy; cm10 - Immunization history:: Adult Immunizations up to date. - Infectious Disease History:: Denies. - Social history:: Smoking status: unknown. Screenin:58 [facility] ED Fall Risk Assessment (Adult) History of falling in the last 3 months, rg5 including since admission No falls in past 3 months (0 pts) Confusion or Disorientation No (0 pts) Intoxicated or Sedated No (0 pts) Impaired Gait Yes (1 pt) Mobility Assist Device Used Yes (1 pt) Altered Elimination No (0 pt) Score/Fall Risk Level 0 - 2 = Low Risk Oriented to surroundings, Maintained a safe environment, Hourly rounding (assess needs \T\ fall precautionary measures) done. Abuse screen: Denies threats or abuse. Nutritional screening: No deficits noted. Tuberculosis screening: No symptoms or risk factors identified. Assessment: 19:58 General: Appears in no apparent distress. comfortable, Behavior is calm, cooperative, rg5 appropriate for age. Pain: Complains of pain in chest Pain radiates to base of the skull Pain began 1 day ago. Neuro: Level of Consciousness is awake, alert, obeys commands, Oriented to person, situation. Cardiovascular: Reports chest pain, Patient's skin is warm and dry. Respiratory: Airway is patent Trachea midline Respiratory effort is even, unlabored, Respiratory pattern is regular, symmetrical. GI: Abdomen is round Abd is soft and non tender. : No signs and/or symptoms were reported regarding the genitourinary system. EENT: No deficits noted. Derm: Skin is intact, Skin is dry, Skin is normal. Musculoskeletal: Circulation, motion, and sensation intact. Range of motion: intact in all extremities. 20:56 Reassessment: No changes from previously documented assessment. Patient and/or family rg5 updated on plan of care and expected duration. Pain level reassessed. Patient is alert, oriented x 3, equal unlabored respirations, skin warm/dry/pink. 21:45 Reassessment: No changes from previously documented assessment. Patient and/or family rg5 updated on plan of care and expected duration. Pain level reassessed. Patient is alert, oriented x 3, equal unlabored respirations, skin warm/dry/pink. Vital Signs: 19:22 BP 174 / 89; Pulse 97; Resp 18; Temp 98.3; Pulse Ox 96% on R/A; Weight 68.04 kg; Height cm10 5 ft. 5 in. ; Pain 8/10; 19:56 BP 159 / 94; Pulse 81; Resp 18; Pulse Ox 99% on R/A; Pain 7/10; rg5 20:56 BP 137 / 78; Pulse 85; Resp 18; Pulse Ox 96% ; rg5 21:45 BP 135 / 79; Pulse 83; Resp 18; Pulse Ox 97% ; Pain 0/10; rg5 19:22 Body Mass Index 24.96 (68.04 kg, 165.1 cm) cm10 19:22 Pain Scale: Adult cm10 19:56 Pain Scale: Adult rg5 21:45 Pain Scale: Adult rg5 ED Course: 19:22 Patient arrived in ED. cm10 19:23 Triage completed. cm10 19:23 EKG done, by pet technologist. af3 19:25 Michaelle Lebron FNP-C is PHCP. kb 19:25 Pepe Anthony MD is Attending Physician. kb 19:25 Arm band placed on right wrist. Patient placed in an exam room, on a stretcher, on cm10 arch support maker, on pulse oximetry. EKG completed in triage. Results shown to MD. 19:29 Slick Gold, RN is Primary Nurse. rg5 19:44 XRAY Chest (1 view) In Process Unspecified. EDMS 19:58 No provider procedures requiring assistance completed. Inserted saline lock: 20 gauge rg5 in right antecubital area, using aseptic technique. Blood collected. Flushed with 10 mL NS. Patient maintains SpO2 saturation greater than 95% on room air. 19:58 Patient has correct armband on for positive identification. Client placed on continuous rg5 cardiac and pulse oximetry monitoring. NIBP monitoring applied. green ware caster on. Pulse ox on. Door closed. Noise minimized. Warm blanket given. 21:14 Gavin Chaudhary MD is Hospitalizing Provider. kb 21:20 Patient admitted, IV remains in place. intact, No redness/swelling at site. rg5 21:20 Provided Education on: needs for admit. rg5 Administered Medications: 19:56 Drug: Aspirin PO Chewable Tablet 324 mg PO once; 81 mg tablets x 4 Route: PO; rg5 20:30 Follow up: Response: No adverse reaction rg5 Medication: 19:58 VIS not applicable for this client. rg5 Outcome: 21:15 Decision to Hospitalize by Provider. kb 21:20 Admitted to ER Hold. Please see [facility] for further documentation. rg5 21:20 Condition: stable 21:20 Instructed on the need for admit, 12/25 05:44 Patient left the ED. br2 Signatures: Dispatcher [employer] EDMichaelle Swartz FNP-C FNP-Francisca Lewis RN RN cm10 Slick Gold RN RN rg5 Sally Yee RN RN br2 Jessica Villa
--- NOTE | 2024-12-24 21:16 | EDPHYS ---
Physician Documentation [facility] Name: Mary Ortega Age: 74 yrs Sex: Female : 1950 Arrival Date: 12/24/2024 Time: 19:06 Bed 25 Private MD: ED Physician Pepe Anthony HPI: 12/24 22:13 This 74 yrs old Female presents to ER via Wheelchair with complaints of Chest kb Pain. 22:13 Patient is a 74-year-old female who presents for chest pain that started at 5 PM. kb States pain is to the left chest that radiates up the left neck and down the left arm. Reports slight shortness of breath. Reports blood pressure has been elevated for the last 2 weeks as well.. Historical: - Allergies: 19:23 No Known Allergies; cm10 - Home Meds: 19:23 lisinopril 20 mg Oral tab 1 tab once daily [Active]; pravastatin 40 mg oral tablet 1 cm10 tab daily [Active]; anastrozole 1 mg oral tablet 1 tab daily [Active]; carvedilol 3.125 mg oral tablet 1 tab 2 times per day [Active]; - PMHx: 19:23 Back pain; Chronic back and neck pain; Hyperlipidemia; Hypertension; Breast Cancer; cm10 - PSHx: 19:23 hysterectomy; cm10 - Immunization history:: Adult Immunizations up to date. - Infectious Disease History:: Denies. - Social history:: Smoking status: unknown. ROS: 22:13 Constitutional: As per HPI kb Exam: 22:13 Constitutional: This is a well developed, well nourished patient who is awake, alert, kb and in no acute distress. Head/Face: Normocephalic, atraumatic. ENT: Moist Mucous membranes Cardiovascular: Regular rate Respiratory: Respirations even and unlabored. No increased work of breathing. Talking in full sentences Abdomen/GI: Soft, non-tender. No distention Skin: Warm, dry with normal turgor. Normal color. MS/ Extremity: Pulses equal, no cyanosis. Neurovascular intact. Full, normal range of motion. Neuro: Awake and alert, GCS 15, oriented to person, place, time, and situation. Vital Signs: 19:22 BP 174 / 89; Pulse 97; Resp 18; Temp 98.3; Pulse Ox 96% on R/A; Weight 68.04 kg; Height cm10 5 ft. 5 in. ; Pain 8/10; 19:56 BP 159 / 94; Pulse 81; Resp 18; Pulse Ox 99% on R/A; Pain 7/10; rg5 20:56 BP 137 / 78; Pulse 85; Resp 18; Pulse Ox 96% ; rg5 21:45 BP 135 / 79; Pulse 83; Resp 18; Pulse Ox 97% ; Pain 0/10; rg5 19:22 Body Mass Index 24.96 (68.04 kg, 165.1 cm) cm10 19:22 Pain Scale: Adult cm10 19:56 Pain Scale: Adult rg5 21:45 Pain Scale: Adult rg5 MDM: 19:25 Medical Screening Exam initiated kb 22:14 Differential diagnosis: Arrhythmia, hypertension, acute NH. Data reviewed: vital signs, kb nurses notes. Consideration of Admission/Observation Patient was admitted/placed on observation. Escalation of care including admission/observation considered. Management of patient was discussed with the following: Hospitalist: Dr Chaudhary accepts pt for admission. Historians other than the Patient: Spouse/Significant Other: . Counseling: I had a detailed discussion with the patient and/or guardian regarding the historical points, exam findings, and any diagnostic results supporting the discharge/admit diagnosis, lab results, radiology results, the need for further work-up and treatment in the hospital. 12/24 19:25 Order name: Basic Metabolic Panel; Complete Time: 20:16 kb 12/24 19:25 Order name: CBC with Diff; Complete Time: 20:12 kb 12/24 19:25 Order name: LFT's; Complete Time: 20:16 kb 12/24 19:25 Order name: Magnesium; Complete Time: 20:16 kb 12/24 19:25 Order name: NT PRO-BNP; Complete Time: 20:16 kb 12/24 19:25 Order name: Troponin HS; Complete Time: 20:16 kb 12/24 22:58 Order name: Basic Metabolic Panel EDWI 12/24 22:58 Order name: CBC with Automated Diff EDMS 12/24 22:58 Order name: Lipid Profile EDMS 12/24 22:58 Order name: Lipid Profile EDMS 12/24 22:58 Order name: Troponin High Sensitivity EDMS 12/24 22:58 Order name: Troponin High Sensitivity EDMS 12/24 22:58 Order name: Troponin High Sensitivity EDWI 12/24 22:58 Order name: Troponin High Sensitivity EDWI 12/24 22:58 Order name: Troponin High Sensitivity [facility] 12/24 19:25 Order name: XRAY Chest (1 view); Complete Time: 19:51 kb 12/24 19:25 Order name: EKG; Complete Time: 19:26 kb 12/24 19:25 Order name: Cardiac monitoring; Complete Time: 19:31 kb 12/24 19:25 Order name: EKG - Nurse/Tech; Complete Time: 19:31 kb 12/24 19:25 Order name: IV Saline Lock; Complete Time: 19:56 kb 12/24 19:25 Order name: Labs collected and sent; Complete Time: 19:56 kb 12/24 19:25 Order name: O2 Per Protocol; Complete Time: 19:31 kb 12/24 19:25 Order name: O2 Sat Monitoring; Complete Time: 19:31 kb Administered Medications: 19:56 Drug: Aspirin PO Chewable Tablet 324 mg PO once; 81 mg tablets x 4 Route: PO; rg5 20:30 Follow up: Response: No adverse reaction rg5 Disposition Summary: 12/24/24 21:15 Hospitalization Ordered Notes: Hospitalization Status: Observation kb Provider: Gavin Chaudhary Condition: Stable kb Problem: new kb Symptoms: are unchanged kb Bed/Room Type: Standard kb Location: Telemetry/MedSurg (observation)(12/25/24 05:44) br2 Room Assignment: [facility](12/25/24 05:44) br2 Diagnosis - Chest pain, unspecified kb Forms: - Medication Reconciliation Form kb - SBAR form kb - Leadership Thank You Letter kb Signatures: Dispatcher [employer] EDWI Michaelle Lebron, NUCLEAR PHYSICS TEACHER-C NUCLEAR PHYSICS TEACHER-Francisca Lewis, RN RN cm10 Sonia Negrete [facility] Slick Gold RN RN rg5 Sally Yee RN RN br2 Corrections: (The following items were deleted from the chart) 19:26 19:25 BASIC METABOLIC PANEL+C.LAB.BRZ ordered. EDMS EDMS 19:26 19:25 CBC+H.LAB.BRZ ordered. EDWI EDMS 19:26 19:25 HEPATIC FUNCTION+C.LAB.BRZ ordered. EDMS EDMS 19: 19:25 MAGNESIUM+C.LAB.BRZ ordered. EDMS EDMS 19: 19:25 PROBNP+C.LAB.BRZ ordered. EDMS EDMS : 19:25 Troponin High Sensitivity+C.LAB.BRZ ordered. EDMS EDMS : 21:15 Telemetry/MedSurg (observation) [facility] 23:09 21:15 kb [facility] 12/25 05:44 12/24 23:09 [facility] ER [place] [id number] 12/25 05:44 12/24 23:09 [place] [id number]
[2024-12-24] MEDS ORDERED: MORPHINE 4 MG/ML SYR IV PRN (22:54)
[2024-12-24] MEDS ORDERED: NITROGLYCERIN 0.4 MG/TAB SL PRN (22:54)
--- NOTE | 2024-12-24 22:57 | P.HP ---
Patient History Date of Service: 12/25/24 Reason for admission: Chest pain History of Present Illness: 74-year-old female with a past medical history of chronic back and neck pain, hyperlipidemia, hypertension, and breast cancer presenting with chest pain that began earlier today. Patient's is at bedside and helps relate the story. He states that she started breast cancer treatment with a new pill and since the initiation of that medication she has been having chest pain. She denies fevers, chills, or exposure to sick contacts. She states she feels as if her heart races after she takes the pill. The chest pain radiate to her back. Moreover she relates uncontrolled blood pressure. Allergies No Known Allergies Allergy (Verified 12/25/24 00:41) Home Medications: Acetaminophen/Diphenhydramine [Tylenol Pm Ex-Strength Caplet] 1 tab PO BEDTIME 12/25/24 Anastrozole [Arimidex] 1 mg PO DAILY 12/25/24 Carvedilol [Coreg] 3.125 mg PO BID 12/25/24 Ergocalciferol (Vitamin D2) [Vitamin D2] 50,000 unit PO SEECOM 12/25/24 Gabapentin [Neurontin] 600 mg PO TIDP PRN 12/25/24 Ondansetron [Zofran] 4 mg PO Q6H PRN 12/25/24 Pravastatin Sodium 40 mg PO BEDTIME 12/25/24 lisinopriL [Lisinopril] 20 mg PO DAILY 12/25/24 methocarbamoL [Methocarbamol] 500 mg PO BEDTIME PRN PRN 12/25/24 - Past Medical/Surgical History Diabetic: No -: HTN -: HLD -: HLD -: GERD -: Hysterectomy - Social History Alcohol use: No CD- Drugs: Yes Caffeine use: Yes Review of Systems General: Unremarkable Eyes: Unremarkable ENT: Unremarkable Respiratory: Unremarkable Cardiovascular: Chest Pain Gastrointestinal: Unremarkable Genitourinary: Unremarkable Musculoskeletal: Back Pain Integumentary: Unremarkable Neurological: Unremarkable Lymphatics: Unremarkable Physical Examination - Physical Exam General: Alert, In no apparent distress HEENT: Atraumatic, Normocephalic Neck: Supple Respiratory: Clear to auscultation bilaterally, Normal air movement Cardiovascular: No edema Capillary refill: <2 Seconds Gastrointestinal: Normal bowel sounds, Soft and benign Musculoskeletal: No clubbing, No swelling Integumentary: No rashes, No breakdown Neurological: Normal speech, Normal strength at 5/5 x4 extr Lymphatics: No axilla or inguinal lymphadenopathy - Studies Laboratory Data (last 24 hrs) 12/24/24 12/24/24 19:40 19:40 WBC 7.20 Hgb 13.4 Hct 39.1 Plt Count 201 Sodium 132 L Potassium 3.9 BUN 11 Creatinine 0.63 Glucose 126 H Magnesium 2.3 Total Bilirubin 0.4 AST 14 L ALT 26 Alkaline Phosphatase 48 Assessment and Plan - Plan Chest pain Hypertensive urgency Hyponatremia Hyperlipidemia Breast cancer Chronic back and neck pain Admit to observation Continue aspirin and statin Trend troponins, obtain echo Start IV fluid Nitroglycerin as needed Continue lisinopril and Coreg Continue gabapentin Lipid panel pending Hold Arimidex DVT prophylaxis with Lovenox - Advance Directives Does patient have a Living Will: No Does patient have a Durable POA for Healthcare: No
[2024-12-25] MEDS ORDERED: ALPRAZOLAM 0.25 MG TABLET ONE (00:07)
[2024-12-25] MEDS: ALPRAZOLAM 0.25 MG TABLET PO PRN (00:21)
[2024-12-25 00:57] VITALS: BMI 24.9
[2024-12-25] MEDS ORDERED: GABAPENTIN 300 MG CAP PO PRN (03:57)
[2024-12-25 04:54] VITALS: BP 118/78
[2024-12-25 05:03] VITALS: TEMP 97.8
[2024-12-25 05:55] VITALS: O2SAT 97
[2024-12-25] MEDS ORDERED: carvediloL 3.125 MG TAB PO SCH (09:00)
[2024-12-25] MEDS ORDERED: ENOXAPARIN 40 MG/0.4 ML SQ SCH (09:00)
[2024-12-25] MEDS ORDERED: lisinopriL 20 MG TAB PO SCH (09:00)
[2024-12-25] MEDS ORDERED: ASPIRIN EC 81 MG TAB PO SCH (09:00)
[2024-12-25] MEDS ORDERED: METOPROLOL TAR 50 MG TAB PO SCH (09:00)
--- NOTE | 2024-12-25 12:35 | EKG ---
Test Date: 2024-12-24 Test Time: 19:16:08 Lisw: Dheeraj MEASUREMENT RESULTS: Intervals: Rate: 97 IA: 162 QRSD: 72 QT: 350 QTc: 444 [place]: P: 32 IA: 162 QRS: 22 T: 63 INTERPRETIVE STATEMENTS: Normal sinus rhythm Nonspecific ST abnormality Abnormal ECG Compared to ECG 05/29/2024 10:25:45 No significant changes Electronically Signed On 12-25-24 12:34:46 CDT by Adalberto Vera
[2024-12-25] MEDS ORDERED: ATORVASTATIN 10 MG TAB PO SCH (21:00)
== END 2024-12-25 05:33 | disposition left against medical advice (07) ==
LOC: ER 19:06 → ERHOLD 22:54 → 4TH 12-25 05:07
PROVIDERS: ADMIT Family Medicine; ATTEND Family Medicine
DX: R07.9 Chest pain, unspecified (principal); I16.0 Hypertensive urgency; C50.919 Malignant neoplasm of unspecified site of unspecified female breast; M54.9 Dorsalgia, unspecified; M54.2 Cervicalgia; E78.5 Hyperlipidemia, unspecified; I10 Essential (primary) hypertension; E87.1 Hypo-osmolality and hyponatremia
CPT/HCPCS: 36415; 71045; 80048; 80076; 83735; 83880; 84484; 85025; 93005; G0378